=== PATIENT | male | born 1945 | race Caucasian/White ===

== ENCOUNTER 2021-06-30 04:06 | Inpatient (IN) ==
[2021-06-30 04:57] LABS: Basophils # (auto) 0.03 K/uL (0-0.2); Basophils % (auto) 0.3 %; Eosinophils # (auto) 0.16 K/uL (0-0.5); Eosinophils % (auto) 1.6 %; Hematocrit (blood only) 40.1 % (42-52); Hemoglobin 12.7 g/dL (14.0-18.0); Immature Granulocytes # (auto) 0.04 K/uL (0.00-0.02); Immature Granulocytes % (auto) 0.4 %; Lymphocytes # (auto) 1.38 K/uL (1.2-3.4); Lymphocytes % (auto) 14.1 %; Mean Corpuscular Hgb Conc 31.7 g/dL (32-36); Mean Corpuscular Volume 94.6 fL (80-100); Mean Platelet Volume 10.2 fL (7.4-10.4); Monocytes # (auto) 0.63 K/uL (0.11-0.59); Monocytes % (auto) 6.4 %; Neutrophils # (auto) 7.58 K/uL (1.4-6.5); Neutrophils % (auto) 77.2 %; Platelet Count 294 K/uL (130-400); RDW Coefficient of Variation 15.8 % (11.5-14.5); RDW Standard Deviation 54.9 fL (36.4-46.3); Red Blood Count 4.24 M/uL (4.7-6.1); White Blood Count 9.82 K/uL (4.8-10.8)
[2021-06-30 05:08] LABS: D Dimer 300 ug/L FEU (0-500)
[2021-06-30 05:25] LABS: Appearance Urine Cloudy (Clear); Bacteria Urine Automated 3+ (Negative); Bilirubin Urine Negative (Negative); Blood Urine 1+ (Negative); Color Urine Yellow; Epithelial Cell Urine Auto 0-5 /lpf (0-5); Glucose Urine UA Negative (Negative); Ketones Urine Negative (Negative); Leukocyte Esterase Urine 3+ (Negative); Nitrite Urine Positive (Negative); Protein Urine Trace (Negative); RBC Urine Automated 0-4 /hpf (0-4); Specific Gravity Urine 1.012 (1.000-1.030); Urobilinogen Urine Negative (Negative); WBC Urine Automated >30 /hpf (0-5)
[2021-06-30 05:26] LABS: Troponin I < 0.03 ng/ml (0-0.04)
[2021-06-30 05:38] LABS: Thyroid Stimulating Hormone 6.918 uIu/ml (0.300-4.500)
[2021-06-30 05:39] LABS: Alanine Aminotransferase 9 U/L (7-52); Albumin Globulin Ratio 0.9 (0.9-2); Albumin Level 3.6 gm/dl (3.4-5.0); Alkaline Phosphatase 56 U/L (34-104); Anion Gap 8 (3-11); Aspartate Aminotransferase 9 U/L (13-39); BUN Creatinine Ratio 15.2 (10-20); Bilirubin,Total 0.4 mg/dl (0.2-1.0); Blood Urea Nitrogen 34 mg/dl (6-23); Calcium 9.7 mg/dl (8.5-10.1); Carbon Dioxide 24 mmol/L (21-32); Chloride 103 mmol/L (98-107); Creatinine Clr Calc Pharmacy 40.3 ml/min; Est GFR (Non-African American) 27.6 ml/min; Globulin 3.9 gm/dl (2.5-4.0); Glucose 183 mg/dl (70-99(Fasting)); Potassium 4.1 mmol/L (3.5-5.1); Sodium 135 mmol/L (136-145); Total Protein 7.5 gm/dl (6.0-8.3)
--- NOTE | 2021-06-30 06:07 | Emergency Department Note ---
Impression & Plan Dyspnea, Hypothyroidism, Acute UTI, Heme positive stool Admit to the [facility] service ED Provider Note NAME: DOMITILA BAUM AGE: 75 SEX: M ARRIVES VIA: Ambulance INFORMANT: Patient ED PROVIDER(S): Katelynn Pacheco DO CHIEF COMPLAINT: Shortness of breath PLAN: Disposition: Admit to the [facility] service Condition: Fair MEDICAL DECISION MAKING: This is a 75-year-old male patient with hypertension, kidney disease and atrial fibrillation who presents to the emergency department with an episode of shortness of breath and palpitations which woke him from sleep. Chest x-ray was unremarkable and O2 saturations remained stable. D-dimer was negative. However, the patient was significantly weak with heme positive stools and evidence of UTI. The patient received 2 g of IV Rocephin and was noted to be significantly hypothyroid. [facility] for [facility] management. Triage Nursing notes reviewed and agree with them. Prior medical records reviewed occluding nephrology records from [facility] Vital Signs: reviewed and remarkable for hypertension Differential diagnosis: PE, CHF, pneumonia, A. fib with RVR, anemia ER treatment provided: IV Rocephin Diagnostics interpreted by me: ECG: Normal sinus rhythm at a rate of 65 with first-degree AV block there is no ST segment elevation or signs of ischemia Cardiac Monitoring: Normal sinus rhythm at 63 Laboratory studies: See below Imaging studies: As per my interpretation Chest x-ray: No acute pulmonary consolidation or opacity. There is some atelectasis at the left lung base. HPI: 75/M arrives for evaluation of dyspnea. The patient describes waking from sleep feeling short of breath with heart racing. Since that time, he has felt generalized weakness. He denies any chest pain. The patient normally wears 4 L of oxygen at bedtime. He has been doing this since 2009 when he was noted to be hypoxic with sleep. He is unsure whether or not he has sleep apnea. He describes a past medical history of hypertension and atrial fibrillation for which he takes Eliquis. ROS: See above HPI for pertinent positives & negatives. A total of 10 systems reviewed and were otherwise negative. PAST MEDICAL HISTORY:See Below PAST SURGICAL HISTORY:See Below FAMILY HISTORY:See Below SOCIAL HISTORY:See Below HOME MEDICATIONS:See list ALLERGIES:See list VITALS:See Below PHYSICAL EXAMINATION: HEENT: Head - normocephalic and atraumatic. Pupils are equal, round, and reactive to light. Extraocular eye muscles are intact, and sclera are anicteric. Nose - moist nasal mucosa without discharge. Mouth - moist buccal mucosa. Oropharynx is nonerythematous and there is no tonsillar exudate or edema noted. Neck: Supple; no cervical lymphadenopathy or JVD Heart: Regular rate and rhythm. There is a normal S1 and S2 with no murmurs, clicks, or gallops appreciated. Lungs: Clear to auscultation bilaterally with no wheezes, rales, or rhonchi. Abdomen: Soft, completely nontender, nondistended, with good bowel sounds. There are no palpable pulsatile masses or hepatosplenomegaly. There is no guarding, rigidity, or rebound noted. Extremities: No evidence of cyanosis, clubbing, or edema. There are easily palpable peripheral pulses. Skin: warm and dry with good turgor and no rashes. ED COURSE: Times/Reassessments: 0430: The patient was evaluated in room C6. A complete history and physical was performed. An IV lock was initiated and labs were drawn as above. An order was placed for continuous cardiac monitoring. The patient was in a normal sinus rhythm at a rate of 63. Chest x-ray was performed. Urine specimen was obtained and appears to be acutely infected. The patient was treated with 2 g of IV Rocephin. A twelve-lead EKG was obtained. The patient's stool was heme tested and found to be positive. Patient remains significantly weak. 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: No Current Living Situation: Alone Feels Safe at Home: Yes Safety Concerns: Feels Safe At This Time Assistive Devices: Cane Allergies Allergies Allergy/AdvReac Type Severity Reaction Status Date / Time No Known Allergies Allergy Verified 06/30/21 09:31 Home Meds Home Medications Medication Instructions Recorded Confirmed apixaban 5 mg tablet 5 mg PO BID 04/25/21 06/30/21 cholecalciferol (vitamin D3) 25 25 mcg PO QAM 04/25/21 06/30/21 mcg (1,000 unit) capsule folic acid 1 mg tablet 1 mg PO QAM 04/25/21 06/30/21 levothyroxine 88 mcg capsule 88 mcg PO DAILYBB 04/25/21 06/30/21 metoprolol succinate 25 mg 12.5 mg PO BID tab 05/05/21 06/30/21 tablet,extended release 24 hr ferrous sulfate 325 mg (65 mg 325 mg PO QAM 06/30/21 06/30/21 iron) tablet (FeroSul) gabapentin 100 mg capsule 100 mg PO QID 06/30/21 06/30/21 lisinopril 20 mg tablet 20 mg PO QAM 06/30/21 06/30/21 trazodone 50 mg tablet 50 mg PO DAILY 06/30/21 06/30/21 Results & Data (ED) Vital Signs Vital Signs - 24 hr 06/30/21 04:13 06/30/21 04:19 06/30/21 04:30 Temperature 36.6 C Temperature Source Oral Pulse Rate 67 65 Pulse Rate [Apical] Respiratory Rate 24 19 Respiratory Effort / Characteristics Short of Breath SOB on Exertion Respiratory Depth Blood Pressure 221/93 H Blood Pressure [Right Arm] Blood Pressure Mean 135 Blood Pressure Mean [Right Arm] Pulse Oximetry 97 97 97 Oxygen Delivery Method Room Air Room Air Room Air Sepsis Recent Fever Within 48 Hours No Sepsis New/Unexplained Change in Mental Status No Sepsis Action Taken by Nursing No Action Required 06/30/21 05:15 06/30/21 05:20 06/30/21 06:00 Temperature Temperature Source Pulse Rate Pulse Rate [Apical] 63 63 Respiratory Rate 16 20 Respiratory Effort / Characteristics Respiratory Depth Blood Pressure Blood Pressure [Right Arm] 213/90 H 205/99 H Blood Pressure Mean Blood Pressure Mean [Right Arm] 131 134 Pulse Oximetry 94 96 Oxygen Delivery Method Room Air Room Air Room Air Sepsis Recent Fever Within 48 Hours Sepsis New/Unexplained Change in Mental Status Sepsis Action Taken by Nursing 06/30/21 07:30 Temperature Temperature Source Pulse Rate Pulse Rate [Apical] 69 Respiratory Rate 22 Respiratory Effort / Characteristics Non-Labored Spontaneous Respiratory Depth Normal Blood Pressure Blood Pressure [Right Arm] 156/114 H Blood Pressure Mean Blood Pressure Mean [Right Arm] 128 Pulse Oximetry 97 Oxygen Delivery Method Room Air Sepsis Recent Fever Within 48 Hours Sepsis New/Unexplained Change in Mental Status Sepsis Action Taken by Nursing Laboratory Data Result diagrams: 06/30/21 04:35 06/30/21 04:35 Lab Results 06/30/21 06/30/21 06/30/21 Range/Units 04:30 04:35 04:35 WBC 9.82 (4.8-10.8) K/uL RBC 4.24 L (4.7-6.1) M/uL Hgb 12.7 L (14.0-18.0) g/dL Hct 40.1 L (42-52) % MCV 94.6 (80-100) fL MCH 30.0 (25-34) pg MCHC 31.7 L (32-36) g/dL RDW Std Deviation 54.9 H (36.4-46.3) fL RDW Coeff of Yolanda 15.8 H (11.5-14.5) % Plt Count 294 (130-400) K/uL MPV 10.2 (7.4-10.4) fL Immature Gran % (Auto) 0.4 % Neut % (Auto) 77.2 % Lymph % (Auto) 14.1 % [place] % (Auto) 6.4 % Eos % (Auto) 1.6 % Baso % (Auto) 0.3 % Neut # (Auto) 7.58 H (1.4-6.5) K/uL Lymph # (Auto) 1.38 (1.2-3.4) K/uL [place] # (Auto) 0.63 H (0.11-0.59) K/uL Eos # (Auto) 0.16 (0-0.5) K/uL Baso # (Auto) 0.03 (0-0.2) K/uL Immature Gran # (Auto) 0.04 H (0.00-0.02) K/uL D-Dimer 300 (0-500) ug/L FEU Sodium (136-145) mmol/L Potassium (3.5-5.1) mmol/L Chloride (98-107) mmol/L Carbon Dioxide (21-32) mmol/L Anion Gap (3-11) BUN (6-23) mg/dl Creatinine (0.6-1.4) mg/dl Est Cr Clr Drug Dosing ml/min Est GFR ( Amer) ml/min Est GFR (Non-Af Amer) ml/min BUN/Creatinine Ratio (10-20) Glucose (70-99(Fasting)) mg/dl Calcium (8.5-10.1) mg/dl Total Bilirubin (0.2-1.0) mg/dl AST (13-39) U/L ALT (7-52) U/L Alkaline Phosphatase (34-104) U/L Troponin I (0-0.04) ng/ml Total Protein (6.0-8.3) gm/dl Albumin (3.4-5.0) gm/dl Globulin (2.5-4.0) gm/dl Albumin/Globulin Ratio (0.9-2) TSH (0.300-4.500) uIu/ml Free T4 (0.61-1.60) ng/dl Urine Color Yellow Urine Appearance Cloudy A (Clear) Urine pH 6.0 (4.5-7.5) Ur Specific Grace 1.012 (1.000-1.030) Urine Protein Trace H (Negative) Urine Glucose (UA) Negative (Negative) Urine Ketones Negative (Negative) Urine Blood 1+ H (Negative) Urine Nitrite Positive A (Negative) Urine Bilirubin Negative (Negative) Urine Urobilinogen Negative (Negative) Ur Leukocyte Esterase 3+ H (Negative) Urine WBC (Auto) >30 H (0-5) /hpf Urine RBC (Auto) 0-4 (0-4) /hpf U Hyaline Cast (Auto) 1-5 (0-5) /lpf U Epithel Cells (Auto) 0-5 (0-5) /lpf Urine Bacteria (Auto) 3+ H (Negative) 06/30/21 06/30/21 Range/Units 04:35 04:35 WBC (4.8-10.8) K/uL RBC (4.7-6.1) M/uL Hgb (14.0-18.0) g/dL Hct (42-52) % MCV (80-100) fL MCH (25-34) pg MCHC (32-36) g/dL RDW Std Deviation (36.4-46.3) fL RDW Coeff of Yolanda (11.5-14.5) % Plt Count (130-400) K/uL MPV (7.4-10.4) fL Immature Gran % (Auto) % Neut % (Auto) % Lymph % (Auto) % [place] % (Auto) % Eos % (Auto) % Baso % (Auto) % Neut # (Auto) (1.4-6.5) K/uL Lymph # (Auto) (1.2-3.4) K/uL [place] # (Auto) (0.11-0.59) K/uL Eos # (Auto) (0-0.5) K/uL Baso # (Auto) (0-0.2) K/uL Immature Gran # (Auto) (0.00-0.02) K/uL D-Dimer (0-500) ug/L FEU Sodium 135 L (136-145) mmol/L Potassium 4.1 (3.5-5.1) mmol/L Chloride 103 (98-107) mmol/L Carbon Dioxide 24 (21-32) mmol/L Anion Gap 8 (3-11) BUN 34 H (6-23) mg/dl Creatinine 2.24 H (0.6-1.4) mg/dl Est Cr Clr Drug Dosing 40.3 ml/min Est GFR ( Amer) 32.0 ml/min Est GFR (Non-Af Amer) 27.6 ml/min BUN/Creatinine Ratio 15.2 (10-20) Glucose 183 H (70-99(Fasting)) mg/dl Calcium 9.7 (8.5-10.1) mg/dl Total Bilirubin 0.4 (0.2-1.0) mg/dl AST 9 L (13-39) U/L ALT 9 (7-52) U/L Alkaline Phosphatase 56 (34-104) U/L Troponin I < 0.03 (0-0.04) ng/ml Total Protein 7.5 (6.0-8.3) gm/dl Albumin 3.6 (3.4-5.0) gm/dl Globulin 3.9 (2.5-4.0) gm/dl Albumin/Globulin Ratio 0.9 (0.9-2) TSH 6.918 H (0.300-4.500) uIu/ml Free T4 0.74 (0.61-1.60) ng/dl Urine Color Urine Appearance (Clear) Urine pH (4.5-7.5) Ur Specific [place] (1.000-1.030) Urine Protein (Negative) Urine Glucose (UA) (Negative) Urine Ketones (Negative) Urine Blood (Negative) Urine Nitrite (Negative) Urine Bilirubin (Negative) Urine Urobilinogen (Negative) Ur Leukocyte Esterase (Negative) Urine WBC (Auto) (0-5) /hpf Urine RBC (Auto) (0-4) /hpf U Hyaline Cast (Auto) (0-5) /lpf U Epithel Cells (Auto) (0-5) /lpf Urine Bacteria (Auto) (Negative) Administered Medications Apixaban (Apixaban 5 Mg Tablet) 5 mg PO BID LEE Stop: 07/30/21 20:59 Last Admin: 06/30/21 21:37 Dose: 5 mg Documented by: [id number] Metoprolol Succinate (Metoprolol Succ 25mg Ext Rel Tab) 12.5 mg PO BID LEE Stop: 07/30/21 20:59 Last Admin: 06/30/21 20:49 Dose: 12.5 mg Documented by: [id number] Nitroglycerin (Nitroglycerin 2% Ointment 30gm Tube) 1 inch EXT Q6H LEE Stop: 07/30/21 11:35 Last Admin: 06/30/21 22:39 Dose: 1 inch Documented by: [id number] Admin: 06/30/21 17:47 Dose: 1 inch Documented by: [id number] Admin: 06/30/21 12:59 Dose: Not Given Documented by: [id number] Discontinued Medications Aspirin (Aspirin 81 Mg Chew) 324 mg PO NOW STA Stop: 06/30/21 09:30 Last Admin: 06/30/21 10:29 Dose: 324 mg Documented by: [id number] Furosemide (Furosemide Inj 20 Mg/2 Ml Vial) 20 mg IV ONE ONE Stop: 06/30/21 17:04 Last Admin: 06/30/21 17:47 Dose: 20 mg Documented by: [id number] Sodium Chloride (Nss) 500 mls @ 999 mls/hr IV .Q31M ONE Stop: 06/30/21 07:00 Last Infusion: 06/30/21 07:15 Dose: 0 mls/hr Documented by: [id number] Admin: 06/30/21 06:42 Dose: 999 mls/hr Documented by: [id number] Ceftriaxone Sodium (Rocephin) 2,000 mg in 70 mls @ 140 mls/hr IV NOW STA Stop: 06/30/21 06:59 Last Infusion: 06/30/21 07:11 Dose: 0 mls/hr Documented by: [id number] Admin: 06/30/21 06:41 Dose: 140 mls/hr Documented by: [id number] Nitroglycerin (Nitroglycerin 2% Ointment 30gm Tube) 1 inch EXT NOW STA Stop: 06/30/21 09:21 Last Admin: 06/30/21 10:29 Dose: 1 inch Documented by: [id number] Discharge Plan Visit Data Chief Complaint: Shortness of Breath/Dyspnea Stated Complaint: WEAKNESS,SHORT OF BREATH, HEADACHE ED Provider: Katelynn Pacheco Discharge Problem: Dyspnea, Hypothyroidism, Acute UTI, Heme positive stool Patient Disposition: Admitted As Inpatient Discharge Instructions Interventions: ED Discharge Assessment Last Done: 06/30/21 10:47 Discharge Problem: Dyspnea Qualifiers: Dyspnea type: shortness of breath Qualified Code(s): R06.02 - Shortness of breath Hypothyroidism Qualifiers: Hypothyroidism type: unspecified Qualified Code(s): E03.9 - Hypothyroidism, unspecified
[2021-06-30 06:19] LABS: T4 Free Thyroxine 0.74 ng/dl (0.61-1.60)
[2021-06-30] MEDS ORDERED: SODIUM CHLORIDE 0.9% 500 ML IV ONE (06:30)
[2021-06-30] MEDS ORDERED: cefTRIAXone SODIUM 2,000 MG/70 ML BAG IV STA (06:30)
--- NOTE | 2021-06-30 08:02 | History & Physical Report ---
Date of Service June 30, 2021 Assessment & Plan (1) Dyspnea: Plan: Sudden onset this morning, now resolved of unclear etiology. Concerning for possible ACS and will trend troponins - ASA 324mg PO now pending further workup, TTE Possible atrial fibrillation given known history of this and palpitations - monitor on telemetry for recurrence (2) Hypertensive urgency: Plan: Not taking lisinopril as he felt he was on too many medications. Will hold off restarting this as unclear what his baseline renal function is. Continue metoprolol succinate 12.5mg PO BID Start nitro paste 1 inch in case of ACS as above. Hydralazine 10mg IV q4h PRN for sBP > 180 One dose of Lasix 20mg IV now as appears mildly hypervolemic and will monitor Cr tomorrow for further doses. (3) Asymptomatic bacteriuria: Plan: No symptoms of this. Discontinue antibiotics. (4) Hypothyroidism: Plan: TSH 6.918, free T4 0.74, will defer increasing levothyroxine in acute setting as unlikely cause of this shortness of breath this morning Continue levothyroxine 88 mcg PO daily (5) Paroxysmal atrial fibrillation: Plan: Currently in NSR. Monitor on telemetry Anticoagulation with Eliquis 5mg PO BID (6) Hyperlipidemia: Plan: On no statin (7) Anemia due to chronic kidney disease: Plan: Mild. Monitor with CBC in AM. Follow up with nephrology as outpatient. (8) Stage 3b chronic kidney disease: Plan: Unclear baseline. Monitor with Lasix in AM. Plan: VTE Prophylaxis - Eliquis Diet - heart healthy Disposition - observation status to med/tele History of Present Illness Chief Complaint: Shortness of breath Primary Care Provider: AMAN Zhu Rafael Santos is a 75 year old male who presents to the ER with shortness of breath. He reports waking up feeling sudden onset shortness of breath this morning from sleeping. Associated palpitations. No chest pain. Shortness of breath resolved in the ER. He also describes a pressure on his abdomen which was making it hard for him to breath. No known history of CHF or kidney stones. He isn't taking his lisinopril as he was concerned about being on too many medications for his blood pressure as previously he had some orthostasis. He reports doing better on increased dose of metoprolol (25mg PO BID) and is unsure why it was ever reduced to it's current dose. In the ER UA was noted to be grossly positive for infection however he denies an y urinary symptoms such as back pain, suprapubic pain, urinary frequency, smell, change in color. He has chronic nocturia 2-3 times a night which has not changed. He was given one dose of ceftriaxone in the ER. CXR showed mild congestive change. EKG showed normal sinus rhythm. BP 221/93. He was referred to medicine for admission and ongoing management of weakness, BRETT (although unclear baseline) and UTI. Allergies Allergy/AdvReac Type Severity Reaction Status Date / Time No Known Allergies Allergy Verified 06/30/21 09:31 Home Medications Medication Instructions Recorded Confirmed Type apixaban 5 mg tablet 5 mg PO BID 04/25/21 06/30/21 History cholecalciferol (vitamin D3) 25 25 mcg PO QAM 04/25/21 06/30/21 History mcg (1,000 unit) capsule folic acid 1 mg tablet 1 mg PO QAM 04/25/21 06/30/21 History levothyroxine 88 mcg capsule 88 mcg PO DAILYBB 04/25/21 06/30/21 History metoprolol succinate 25 mg 12.5 mg PO BID tab 05/05/21 06/30/21 History tablet,extended release 24 hr ferrous sulfate 325 mg (65 mg 325 mg PO QAM 06/30/21 06/30/21 History iron) tablet (FeroSul) gabapentin 100 mg capsule 100 mg PO QID 06/30/21 06/30/21 History lisinopril 20 mg tablet 20 mg PO QAM 06/30/21 06/30/21 History trazodone 50 mg tablet 50 mg PO DAILY 06/30/21 06/30/21 History Past Med/Surg History Medical History (Updated 07/01/21 @ 07:44 by Toño Saunders MD) Age-related nuclear cataract, right eye 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 Vitamin D deficiency Social History Smoking Status: Never smoker Hx Alcohol Use: No Hx Substance Use: No Preferred Language: Albanian Loan Workout 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 Required: No Current Living Situation: Alone Feels Safe at Home: Yes Safety Concerns: Feels Safe At This Time Assistive Devices: Cane Review of Systems Review of Systems: All systems reviewed & are unremarkable except as noted in HPI & below Physical Exam Constitutional: WD/WN, vitals as above + morbidly obese; no acute distress Eyes: + anicteric sclerae; normal pupil size ENMT: external ear and nose normal, oropharynx normal Neck: trachea midline, no thyromegaly Respiratory: normal respiratory effort, lungs clear to auscultation Cardiovascular: Rate/Rhythm: regular rate and regular rhythm Heart Sounds: no murmur Vessels: no JVD (difficult to assess given neck size) Extremities: normal capillary refill and + pedal edema (1+ equal b/l LE with chronic venous stasis skin changes); no calf tenderness Gastrointestinal (Abdomen): normal bowel sounds, soft, nontender, no hepatosplenomegaly Musculoskeletal: no cyanosis or clubbing, extremities motor strength 5/5 Skin: no rashes, warm and dry (chronic venous stasis changes b/l LE) Neurologic: moves all extremities and awake; no focal motor deficits (no lateralizing weakness) and not confused Psychiatric: A+Ox3, euthymic affect Genitourinary: no CVA tenderness Results & Data Results & Data ([facility]) Vital Signs (Past 12 Hours) Vital Signs Temp Pulse Pulse Resp BP BP Pulse Ox 06/30/21 07:30 69 22 156/114 H 97 06/30/21 06:00 63 20 205/99 H 96 06/30/21 05:20 94 06/30/21 05:15 63 16 213/90 H 06/30/21 04:30 65 19 97 06/30/21 04:19 97 06/30/21 04:13 36.6 C 67 24 221/93 H 97 Laboratory Results Abnormal lab results 06/30/21 06/30/21 06/30/21 Range/Units 04:30 04:35 04:35 RBC 4.24 L (4.7-6.1) M/uL Hgb 12.7 L (14.0-18.0) g/dL Hct 40.1 L (42-52) % MCHC 31.7 L (32-36) g/dL RDW Std Deviation 54.9 H (36.4-46.3) fL RDW Coeff of Yolanda 15.8 H (11.5-14.5) % Neut # (Auto) 7.58 H (1.4-6.5) K/uL [place] # (Auto) 0.63 H (0.11-0.59) K/uL Immature Gran # (Auto) 0.04 H (0.00-0.02) K/uL Sodium 135 L (136-145) mmol/L BUN 34 H (6-23) mg/dl Creatinine 2.24 H (0.6-1.4) mg/dl Glucose 183 H (70-99(Fasting)) mg/dl AST 9 L (13-39) U/L TSH (0.300-4.500) uIu/ml Urine Appearance Cloudy A (Clear) Urine Protein Trace H (Negative) Urine Blood 1+ H (Negative) Urine Nitrite Positive A (Negative) Ur Leukocyte Esterase 3+ H (Negative) Urine WBC (Auto) >30 H (0-5) /hpf Urine Bacteria (Auto) 3+ H (Negative) 06/30/21 Range/Units 04:35 RBC (4.7-6.1) M/uL Hgb (14.0-18.0) g/dL Hct (42-52) % MCHC (32-36) g/dL RDW Std Deviation (36.4-46.3) fL RDW Coeff of Yolanda (11.5-14.5) % Neut # (Auto) (1.4-6.5) K/uL [place] # (Auto) (0.11-0.59) K/uL Immature Gran # (Auto) (0.00-0.02) K/uL Sodium (136-145) mmol/L BUN (6-23) mg/dl Creatinine (0.6-1.4) mg/dl Glucose (70-99(Fasting)) mg/dl AST (13-39) U/L TSH 6.918 H (0.300-4.500) uIu/ml Urine Appearance (Clear) Urine Protein (Negative) Urine Blood (Negative) Urine Nitrite (Negative) Ur Leukocyte Esterase (Negative) Urine WBC (Auto) (0-5) /hpf Urine Bacteria (Auto) (Negative) Diagnostic Findings XR chest 1V portable HISTORY: Dyspnea COMPARISON: None. FINDINGS: No pneumothorax. No pleural effusions. The cardiac silhouette is enlarged. There are calcifications within the aortic knob. Low lung volumes. Linear densities within left midlung zone are noted. Mild central pulmonary vascular congestion without overt edema. IMPRESSION: 1. Nonspecific linear densities within the left midlung zone. This could represent scarring or atelectasis. A pneumonia is considered less likely but not entirely excluded. 2. Cardiomegaly with mild congestive change. Medications Administered ER Medications Given: NSS 500 ml bolus Ceftriaxone 2g IV Code Status & VTE Plan Code Status Full per patient wishes VTE Prophylaxis Plan VTE Prophylaxis will be ordered: Yes PG Care Time/CCT Total # of Minutes Spent Total Time Spent with Patient: Total time spent is greater than 50% in coordination of care (as documented) at patient's floor/unit and/or counseling patient: Coding Level of Care Code INT OBSERVATION CARE 70M LVL 3 Diagnoses Dyspnea R06.00 Hypertensive urgency I16.0 Hypothyroidism E03.9 Paroxysmal atrial fibrillation I48.0 Hyperlipidemia E78.5 Anemia due to chronic kidney disease N18.9; D63.1 Stage 3b chronic kidney disease N18.32 Asymptomatic bacteriuria R82.71
--- NOTE | 2021-06-30 08:22 | XRay Report ---
XR chest 1V portable HISTORY: Dyspnea COMPARISON: None. FINDINGS: No pneumothorax. No pleural effusions. The cardiac silhouette is enlarged. There are calcif ications within the aortic knob. Low lung volumes. Linear densities within left midlung zone are note d. Mild central pulmonary vascular congestion without overt edema. IMPRESSION: 1. Nonspecific linear densities within the left midlung zone. This could represent scarring or atelec tasis. A pneumonia is considered less likely but not entirely excluded. 2. Cardiomegaly with mild congestive change. ACT 112: Negative or not required by law. Electronically signed by: Davy Brooke M.D. 06/30/2021 8:21 AM
--- NOTE | 2021-06-30 08:49 | Electrocardiogram Report ---
Test Reason : Blood Pressure : / mmHG Vent. Rate : 065 BPM Atrial Rate : 065 BPM P-R Int : 238 ms QRS Dur : 106 ms QT Int : 394 ms P-R-T Axes : 060 -23 090 degrees QTc Int : 409 ms Sinus rhythm with 1st degree A-V block Nonspecific T wave abnormality Abnormal ECG No previous ECGs available Confirmed by Onofre Christiansen ([id number]) on 06/30/2021 8:49:25 AM Referred By: REFERRED SELF Confirmed By:Kamaljit Christiansen
[2021-06-30] MEDS ORDERED: NITROGLYCERIN 2% OINTMENT 30GM TUBE EXT STA (09:20)
[2021-06-30] MEDS ORDERED: ASPIRIN 81 MG CHEW PO STA (09:29)
--- NOTE | 2021-06-30 10:33 | XCELERA ---
[id number]
[2021-06-30] MEDS ORDERED: hydrALAZINE HCL 20 MG/ML VIAL IV PRN ×2 (11:36→13:55)
[2021-06-30] MEDS: NITROGLYCERIN 2% OINTMENT 30GM TUBE EXT SCH ×3 (12:59→22:39)
[2021-06-30] MEDS ORDERED: GABAPENTIN 100 MG CAP PO PRN (13:47)
[2021-06-30] MEDS ORDERED: traZODone HCL 50 MG TAB PO PRN (13:57)
[2021-06-30] MEDS ORDERED: lisinopril 20 MG TAB PO SCH (14:00)
[2021-06-30] MEDS ORDERED: FUROSEMIDE INJ 20 MG/2 ML VIAL IV ONE (17:03)
[2021-06-30] MEDS: METOPROLOL SUCC 25MG EXT REL TAB PO SCH (20:49)
[2021-06-30] MEDS: APIXABAN 5 MG TABLET PO SCH (21:37)
[2021-07-01] MEDS: LEVOTHYROXINE SODIUM 88 MCG TABLET PO SCH (05:33)
[2021-07-01] MEDS: NITROGLYCERIN 2% OINTMENT 30GM TUBE EXT SCH ×4 (05:33→23:46)
[2021-07-01 06:24] LABS: Basophils # (auto) 0.03 K/uL (0-0.2); Basophils % (auto) 0.2 %; Eosinophils # (auto) 0.15 K/uL (0-0.5); Eosinophils % (auto) 1.2 %; Hematocrit (blood only) 38.4 % (42-52); Hemoglobin 11.9 g/dL (14.0-18.0); Immature Granulocytes # (auto) 0.06 K/uL (0.00-0.02); Immature Granulocytes % (auto) 0.5 %; Lymphocytes # (auto) 0.87 K/uL (1.2-3.4); Lymphocytes % (auto) 7.2 %; Mean Corpuscular Hemoglobin 29.5 pg (25-34); Mean Platelet Volume 10.4 fL (7.4-10.4); Monocytes # (auto) 0.87 K/uL (0.11-0.59); Monocytes % (auto) 7.2 %; Neutrophils # (auto) 10.06 K/uL (1.4-6.5); Neutrophils % (auto) 83.7 %; Platelet Count 289 K/uL (130-400); RDW Standard Deviation 56.3 fL (36.4-46.3); Red Blood Count 4.04 M/uL (4.7-6.1); White Blood Count 12.04 K/uL (4.8-10.8)
[2021-07-01 06:45] LABS: BUN Creatinine Ratio 14.3 (10-20); Calcium 8.9 mg/dl (8.5-10.1); Creatinine Clr Calc Pharmacy 36.3 ml/min; Est GFR (African American) 27.9 ml/min; Est GFR (Non-African American) 24.1 ml/min; Potassium 4.2 mmol/L (3.5-5.1)
[2021-07-01] MEDS: METOPROLOL SUCC 25MG EXT REL TAB PO SCH ×2 (08:00→20:31)
[2021-07-01] MEDS: FERROUS SULFATE 325 MG TAB PO SCH (10:06)
[2021-07-01] MEDS: FOLIC ACID 1 MG TAB PO SCH (10:06)
[2021-07-01] MEDS: APIXABAN 5 MG TABLET PO SCH ×2 (10:06→20:31)
[2021-07-01] MEDS: CHOLECALCIFEROL 1,000 UNITS 25 MCG TAB PO SCH (11:15)
--- NOTE | 2021-07-01 20:02 | Hospitalist Progress Note ---
Date of Service July 01, 2021 Assessment & Plan (1) Dyspnea: Plan: Sudden onset this morning, now resolved of unclear etiology. Concerning for possible ACS and will trend troponins - ASA 324mg PO now pending further workup, TTE Possible atrial fibrillation given known history of this and palpitations - monitor on telemetry for recurrence. WBC worsene, creatinine increased, will recheck in AM. If improving, will discharge. (2) Hypertensive urgency: Plan: Not taking lisinopril as he felt he was on too many medications. Will hold off restarting this as unclear what his baseline renal function is. Continue metoprolol succinate 12.5mg PO BID Start nitro paste 1 inch in case of ACS as above. Hydralazine 10mg IV q4h PRN for sBP > 180 One dose of Lasix 20mg IV now as appears mildly hypervolemic creatinine increased on 07/01 (3) Asymptomatic bacteriuria: Plan: No symptoms of this. Discontinue antibiotics. (4) Hypothyroidism: Plan: TSH 6.918, free T4 0.74, will defer increasing levothyroxine in acute setting as unlikely cause of this shortness of breath this morning Continue levothyroxine 88 mcg PO daily (5) Paroxysmal atrial fibrillation: Plan: Currently in NSR. Monitor on telemetry Anticoagulation with Eliquis 5mg PO BID (6) Hyperlipidemia: Plan: On no statin (7) Anemia due to chronic kidney disease: Plan: Mild. Monitor with CBC in AM. Follow up with nephrology as outpatient. (8) Stage 3b chronic kidney disease: Plan: Unclear baseline. Monitor with Lasix in AM. Plan: VTE Prophylaxis - Eliquis Diet - heart healthy Disposition - observation status to med/tele Admission and Anticipated Discharge Date Admission Date: July 01, 2021 Subjective Patient reports feeling better. Review of Systems Review of Systems: All systems reviewed & are unremarkable except as noted in HPI & below Physical Exam Constitutional: WD/WN, vitals as above + morbidly obese; no acute distress Eyes: + anicteric sclerae; normal pupil size ENMT: external ear and nose normal, oropharynx normal Neck: trachea midline, no thyromegaly Respiratory: normal respiratory effort, lungs clear to auscultation Cardiovascular: Rate/Rhythm: regular rate and regular rhythm Heart Sounds: no murmur Vessels: no JVD (difficult to assess given neck size) Extremities: normal capillary refill and + pedal edema (1+ equal b/l LE with chronic venous stasis skin changes); no calf tenderness Gastrointestinal (Abdomen): normal bowel sounds, soft, nontender, no hepatosplenomegaly Musculoskeletal: no cyanosis or clubbing, extremities motor strength 5/5 Skin: no rashes, warm and dry (chronic venous stasis changes b/l LE) Neurologic: moves all extremities and awake; no focal motor deficits (no lateralizing weakness) and not confused Psychiatric: A+Ox3, euthymic affect Genitourinary: no CVA tenderness Results & Data Results & Data ([facility]) Vital Signs (Past 12 Hours) Vital Signs Temp Pulse Pulse Resp BP BP Pulse Ox 07/01/21 19:36 36.4 C L 72 20 158/68 H 100 07/01/21 15:16 36.5 C 66 18 159/81 H 93 07/01/21 15:00 69 07/01/21 11:14 36.5 C 69 18 177/80 H 92 PG Care Time/CCT Total # of Minutes Spent Total Time Spent with Patient: Total time spent is greater than 50% in coordination of care (as documented) at patient's floor/unit and/or counseling patient: Coding Level of Care Code 52212 Subseq Hosp Care Lvl 2 Diagnoses Dyspnea R06.02 Dyspnea type: shortness of breath Hypertensive urgency I16.0 Asymptomatic bacteriuria R82.71 Hypothyroidism E03.9 Paroxysmal atrial fibrillation I48.0 Hyperlipidemia E78.5 Anemia due to chronic kidney disease N18.9; D63.1 Stage 3b chronic kidney disease N18.32 (1) Dyspnea Dyspnea type: shortness of breath Qualified Code(s): R06.02 - Shortness of breath
[2021-07-02] MEDS: LEVOTHYROXINE SODIUM 88 MCG TABLET PO SCH (05:50)
[2021-07-02] MEDS: NITROGLYCERIN 2% OINTMENT 30GM TUBE EXT SCH ×2 (05:54→13:08)
[2021-07-02 08:01] LABS: Hematocrit (blood only) 38.2 % (42-52); Hemoglobin 11.9 g/dL (14.0-18.0); Mean Corpuscular Hemoglobin 29.7 pg (25-34); Mean Corpuscular Hgb Conc 31.2 g/dL (32-36); Mean Corpuscular Volume 95.3 fL (80-100); Mean Platelet Volume 9.8 fL (7.4-10.4); Platelet Count 269 K/uL (130-400); RDW Coefficient of Variation 16.1 % (11.5-14.5); RDW Standard Deviation 56.5 fL (36.4-46.3); Red Blood Count 4.01 M/uL (4.7-6.1); White Blood Count 9.18 K/uL (4.8-10.8)
[2021-07-02 08:35] LABS: Albumin Globulin Ratio 0.9 (0.9-2); Albumin Level 3.5 gm/dl (3.4-5.0); Bilirubin,Total 0.5 mg/dl (0.2-1.0); Calcium 9.1 mg/dl (8.5-10.1); Est GFR (African American) 25.9 ml/min; Est GFR (Non-African American) 22.4 ml/min; Globulin 3.7 gm/dl (2.5-4.0); Potassium 4.6 mmol/L (3.5-5.1); Total Protein 7.2 gm/dl (6.0-8.3)
[2021-07-02] MEDS: FERROUS SULFATE 325 MG TAB PO SCH (09:26)
[2021-07-02] MEDS: APIXABAN 5 MG TABLET PO SCH (09:26)
[2021-07-02] MEDS: FOLIC ACID 1 MG TAB PO SCH (09:26)
[2021-07-02] MEDS: CHOLECALCIFEROL 1,000 UNITS 25 MCG TAB PO SCH (09:26)
[2021-07-02] MEDS: METOPROLOL SUCC 25MG EXT REL TAB PO SCH (09:26)
--- NOTE | 2021-07-05 06:33 | Discharge Summary ---
Date of Service July 02, 2021 Admission HPI Per Admitting Provider Rafael Santos is a 75 year old male who presents to the ER with shortness of breath. He reports waking up feeling sudden onset shortness of breath this morning from sleeping. Associated palpitations. No chest pain. Shortness of breath resolved in the ER. He also describes a pressure on his abdomen which was making it hard for him to breath. No known history of CHF or kidney stones. He isn't taking his lisinopril as he was concerned about being on too many medications for his blood pressure as previously he had some orthostasis. He reports doing better on increased dose of metoprolol (25mg PO BID) and is unsure why it was ever reduced to it's current dose. In the ER UA was noted to be grossly positive for infection however he denies any urinary symptoms such as back pain, suprapubic pain, urinary frequency, s geoff, change in color. He has chronic nocturia 2-3 times a night which has not changed. He was given one dose of ceftriaxone in the ER. CXR showed mild congestive change. EKG showed normal sinus rhythm. BP 221/93. He was referred to medicine for admission and ongoing management of weakness, BRETT (although unclear baseline) and UTI. Principal Diagnosis Dyspnea Discharge Exam Constitutional: WD/WN, vitals as above + morbidly obese; no acute distress Eyes: + anicteric sclerae; normal pupil size ENMT: external ear and nose normal, oropharynx normal Neck: trachea midline, no thyromegaly Respiratory: normal respiratory effort, lungs clear to auscultation Cardiovascular: Rate/Rhythm: regular rate and regular rhythm Heart Sounds: no murmur Vessels: no JVD (difficult to assess given neck size) Extremities: normal capillary refill and + pedal edema (1+ equal b/l LE with chronic venous s tasis skin changes); no calf tenderness Gastrointestinal (Abdomen): normal bowel sounds, soft, nontender, no hepatosplenomegaly Musculoskeletal: no cyanosis or clubbing, extremities motor strength 5/5 Skin: no rashes, warm and dry (chronic venous stasis changes b/l LE) Neurologic: moves all extremities and awake; no focal motor deficits (no lateralizing weakness) and not confused Psychiatric: A+Ox3, euthymic affect Genitourinary: no CVA tenderness Discharge Data Allergies Allergy/AdvReac Type Severity Reaction Status Date / Time No Known Allergies Allergy Verified 06/30/21 09:31 Consultations 06/30/21 07:27 ED Decision to Admit Stat Hospital Course (1) Dyspnea: Sudden onset this morning, now resolved of unclear etiology. Concerning for possible ACS and will trend troponins - ASA 324mg PO now pending further workup, TTE Possible atrial fibrillation given known history of this and palpitations - monitor on telemetry for recurrence. On day of discharge, patient is improving and feeling well. He is breathing better. Patient has oxygen at home. WBC improved. Creatinine did slightly worsen, but patient is agreeable to obtaining blood work on Wednesday. will hold lisinopril (2) Hypertensive urgency: Not taking lisinopril as he felt he was on too many medications. Will hold off restarting this as unclear what his baseline renal function is. Continue metoprolol succinate 12.5mg PO BID Start nitro paste 1 inch in case of ACS as above. Hydralazine 10mg IV q4h PRN for sBP > 180 One dose of Lasix 20mg IV now as appears mildly hypervolemic creatinine increased on 07/01 (3) Asymptomatic bacteriuria: Uncomplicated UTI Initially treated as asymptomatic bacteruria, however due to WBC elevated in blood will treat UTI. (4) Hypothyroidism: TSH 6.918, free T4 0.74, will defer increasing levothyroxine in acute setting as unlikely cause of this shortness of breath this morning Continue levothyroxine 88 mcg PO daily (5) Paroxysmal atrial fibrillation: Currently in NSR. Monitor on telemetry Anticoagulation with Eliquis 5mg PO BID (6) Hyperlipidemia: On no statin (7) Anemia due to chronic kidney disease: Mild. Monitor with CBC in AM. Follow up with nephrology as outpatient. (8) Stage 3b chronic kidney disease: Unclear baseline. Monitor with Lasix in AM. as above. VTE Prophylaxis - Eliquis Diet - heart healthy Disposition - observation status to med/tele Total Time Total Time Spent Total Time Spent (In Minutes): 32 Discharge Plan Discharge Items Patient Disposition: Home - Self-Care Reason For Visit: GENERALIZED WEAKNESS,UTI Discharge Diagnosis: Generalized weakness, Uti Activity: Resume your previous activity Non-emergency contact: Primary Care Provider Call non-emergency contact if: you have any medication questions Follow-up/Referrals: Mann Bright, [facility] [Primary Care Provider] - Diet: Heart Healthy Addtl Attending Provider Instructions: You have been hospitalized for an acute medical problem. During your stay at [facility], we have made an effort to correct the problem that brought you to the hospital while keeping you as comfortable as possible. Medications were used to bring your condition under control and your discharge instructions will include directions for any medications you should take after leaving the hospital. Please make sure you see your Primary Care Provider as part of your follow up plan. Recommend followup blood work in one week to recheck kidney function. We will treat your urinary tract infection for 5 days. recommend followup with PCP. Pending Studies at Discharge: No Stand-Alone Forms: My [facility], Smoking Cessation Medications and DC Order Prescriptions: New ciprofloxacin HCl 500 mg tablet 500 mg PO BID Qty: 10 RF: 0 Continued apixaban 5 mg tablet 5 mg PO BID RF: 0 cholecalciferol (vitamin D3) 25 mcg (1,000 unit) capsule 25 mcg PO QAM RF: 0 folic acid 1 mg tablet 1 mg PO QAM RF: 0 levothyroxine 88 mcg capsule 88 mcg PO DAILYBB RF: 0 metoprolol succinate 25 mg tablet extended release 24 hr 12.5 mg PO BID RF: 0 trazodone 50 mg tablet 50 mg PO DAILY RF: 0 ferrous sulfate [FeroSul] 325 mg (65 mg iron) tablet 325 mg PO QAM RF: 0 gabapentin 100 mg capsule 100 mg PO QID RF: 0 Discontinued lisinopril 20 mg tablet 20 mg PO QAM RF: 0 Discharge Orders: Discharge Order (Routine); Ordered 07/02/21 Ordered By: Lito Lopez Admission Data Admit Date/Time: 07/01/21 16:35 Attending Provider: Lito Lopez Admit Provider: Toño Saunders Primary Care Provider: Mann Bright Other Providers: Toño Saunders Other Interventions: Discharge Summary Assessment (RN) Last Done: 07/02/21 15:36 Coding Level of Care Code D/C DAY MANAGEMENT >30 MINS Diagnoses Dyspnea R06.02 Dyspnea type: shortness of breath Hypertensive urgency I16.0 Asymptomatic bacteriuria R82.71 Hypothyroidism E03.9 Paroxysmal atrial fibrillation I48.0 Hyperlipidemia E78.5 Anemia due to chronic kidney disease N18.9; D63.1 Stage 3b chronic kidney disease N18.32
== END 2021-07-02 15:57 | disposition home or self-care (01) | DRG 309 ==
LOC: 2N 04:06 → ED 04:06 → SUATTDRO 07:59 → 2N 10:47

== ENCOUNTER 2021-07-28 11:54 | Inpatient (IN) ==
[2021-07-28] MEDS ORDERED: SODIUM CHLORIDE 0.9% 1000ML 500 ML IV ONE (12:00)
[2021-07-28] MEDS ORDERED: CEFEPIME 2,000 MG/20 ML VIAL IV STA (12:00)
--- NOTE | 2021-07-28 12:21 | Emergency Department Note ---
Impression & Plan Weakness, Acute UTI, Failure of outpatient treatment, BRETT (acute kidney injury) ED Provider Note NAME: DOMITILA BAUM AGE: 75 SEX: M : 1945 ARRIVES VIA: Walk-In INFORMANT: [Patient] ED PROVIDER(S): [Adrian Davis MD] CHIEF COMPLAINT: Abnormal labs HISTORY OF PRESENT ILLNESS: The patient is a 75-year-old male who presents to the ED after being called back for positive urine culture results. The patient grew Pseudomonas which is resistant to all forms of oral antibiotics. The patient had been at our facility on the , 2 days ago. He was dizzy and a bit weak. The UTI was diagnosed. He was placed on Bactrim. The patient feels pretty similar to how he fell 2 days ago. He denies any flank or abdominal pain. No fever or chills. No cough or congestion or shortness of breath. He has had a previous UTI requiring hospitalization about 5 years ago. Of note, the patient has not noticed any urinary burning or increased frequency. REVIEW OF SYSTEMS: See HPI for pertinent positives and negatives. A total of ten systems were reviewed and were otherwise negative. PMHx/PSHx: See Below SOCIAL HISTORY: See Below. PHYSICAL EXAM: GENERAL: Patient is in no acute distress. HEENT: No acute trauma, normocephalic atraumatic, mucous membranes moist, no nasal congestion, no scleral icterus. NECK: No stridor, no adenopathy, no meningismus, trachea is midline. LUNGS: Clear to auscultation bilaterally, no wheeze, no rhonchi, breath sounds equal. HEART: Without murmurs gallops or rubs, regular rate and rhythm. ABDOMEN: Soft, nontender, bowel sounds positive, no hernias, no peritonitis. EXTREMITIES: No cyanosis, chronic bilateral pedal edema with some chronic skin change, full range of motion of all the joints without pain or difficulty, no signs for acute trauma. NEUROLOGIC: Oriented x 3, no acute motor or sensory deficits, no focal weakness. SKIN: No rash, no jaundice, no diaphoresis. Back: No flank discomfort to percussion. DIFFERENTIAL DIAGNOSIS: Urinary tract infection, prostatitis, pyelonephritis, hydronephrosis, renal stone, failed outpatient treatment, dehydration, renal failure, electrolyte imbalance, bacteremia, among others. EMERGENCY DEPARTMENT COURSE/PROCEDURES: MEDICAL DECISION MAKING: There is no leukocytosis. A mild anemia was noted with a hemoglobin of 12.9. This anemia is baseline for the patient. There was a normal platelet count. Creatinine was elevated somewhat above the patient's baseline. No significant electrolyte abnormality in need of emergent correction. COVID testing returned negative. Abdominal and pelvis CT showed some potential inflammation to the ureters, there was no urinary obstruction. Urine culture from a few days ago did grow out a resistant Pseudomonas. Only IV antibiotics were indicated. Patient presents with weakness. He has had previous UTIs. He appears to have a UTI now and maybe even an early pyelonephritis. IV antibiotic therapy, hospitalization are warranted. I spoke with the patient, I talked with the social work case manager. The on-call hospitalist was consulted. Of note, during the ED stay, the patient was given IV saline as well as IV cefepime. Past Med/Surg History Medical History Age-related nuclear cataract, right eye 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 Vitamin D deficiency Social History Smoking Status: Never smoker Hx Alcohol Use: No Hx Substance Use: No Preferred Language: Surinamese Communication Ability: Effective Alterations Expert Required: No Current Living Situation: Alone Feels Safe at Home: Yes Assistive Devices: Cane, Glasses, Oxygen - at Night and Walker Allergies Allergies Allergy/AdvReac Type Severity Reaction Status Date / Time ciprofloxacin [From Cipro] AdvReac Intermediate Upset Unverified 07/28/21 13:36 Stomach, Nausea, GI Discomfort Home Meds Home Medications Medication Instructions Recorded Confirmed apixaban 5 mg tablet 5 mg PO BID 04/25/21 07/28/21 cholecalciferol (vitamin D3) 25 25 mcg PO QAM 04/25/21 07/28/21 mcg (1,000 unit) capsule folic acid 1 mg tablet 1 mg PO QAM 04/25/21 07/28/21 levothyroxine 88 mcg capsule 88 mcg PO DAILYBB 04/25/21 07/28/21 metoprolol succinate 25 mg 12.5 mg PO BID tab 05/05/21 07/28/21 tablet,extended release 24 hr ferrous sulfate 325 mg (65 mg 325 mg PO QAM 06/30/21 07/28/21 iron) tablet (FeroSul) gabapentin 100 mg capsule 100 mg PO QID PRN 06/30/21 07/28/21 trazodone 50 mg tablet 50 mg PO HS PRN 06/30/21 07/28/21 lisinopril 5 mg tablet 5 mg PO DAILY 07/28/21 07/28/21 Previous Rx's Medication Instructions Recorded sulfamethoxazole 800 1 tab PO BID 10 Days #20 tab 07/26/21 mg-trimethoprim 160 mg tablet (Bactrim DS) Results & Data (ED) Vital Signs Vital Signs - 24 hr 07/28/21 11:58 07/28/21 12:30 07/28/21 13:32 Temperature 36.3 C L Temperature Source Oral Pulse Rate 66 64 64 Pulse Rhythm Regular Pulse Strength Normal Respiratory Rate 22 18 18 Respiratory Effort / Characteristics Non-Labored Spontaneous Respiratory Depth Normal Respiratory Pattern Regular Blood Pressure 190/73 H 158/104 H 187/91 H Blood Pressure Mean 112 122 123 Blood Pressure Position Sitting Pulse Oximetry 94 94 95 Oxygen Delivery Method Room Air Sepsis Recent Fever Within 48 Hours No Sepsis New/Unexplained Change in Mental Status No Sepsis Action Taken by Nursing No Action Required 07/28/21 14:00 Temperature Temperature Source Pulse Rate 62 Pulse Rhythm Pulse Strength Respiratory Rate 18 Respiratory Effort / Characteristics Respiratory Depth Respiratory Pattern Blood Pressure 172/69 H Blood Pressure Mean 103 Blood Pressure Position Pulse Oximetry 96 Oxygen Delivery Method Sepsis Recent Fever Within 48 Hours Sepsis New/Unexplained Change in Mental Status Sepsis Action Taken by Assisted Medications Current Medication List: was personally reviewed by me Laboratory Data Attestation: I reviewed the patient's lab results. Result diagrams: 07/28/21 12:22 07/28/21 12:22 Lab Results 07/28/21 07/28/21 07/28/21 Range/Units 12:22 12:22 12:31 WBC 8.84 (4.8-10.8) K/uL RBC 4.25 L (4.7-6.1) M/uL Hgb 12.9 L (14.0-18.0) g/dL Hct 41.3 L (42-52) % MCV 97.2 (80-100) fL MCH 30.4 (25-34) pg MCHC 31.2 L (32-36) g/dL RDW Std Deviation 56.9 H (36.4-46.3) fL RDW Coeff of Yolanda 15.9 H (11.5-14.5) % Plt Count 324 (130-400) K/uL MPV 10.3 (7.4-10.4) fL Immature Gran % (Auto) 0.3 % Neut % (Auto) 80.0 % Lymph % (Auto) 12.2 % [place] % (Auto) 5.7 % Eos % (Auto) 1.6 % Baso % (Auto) 0.2 % Neut # (Auto) 7.07 H (1.4-6.5) K/uL Lymph # (Auto) 1.08 L (1.2-3.4) K/uL [place] # (Auto) 0.50 (0.11-0.59) K/uL Eos # (Auto) 0.14 (0-0.5) K/uL Baso # (Auto) 0.02 (0-0.2) K/uL Immature Gran # (Auto) 0.03 H (0.00-0.02) K/uL Sodium 138 (136-145) mmol/L Potassium 4.4 (3.5-5.1) mmol/L Chloride 105 (98-107) mmol/L Carbon Dioxide 27 (21-32) mmol/L Anion Gap 6 (3-11) BUN 30 H (6-23) mg/dl Creatinine 2.68 H (0.6-1.4) mg/dl Est Cr Clr Drug Dosing 32.7 ml/min Est GFR ( Amer) 25.8 ml/min Est GFR (Non-Af Amer) 22.3 ml/min BUN/Creatinine Ratio 11.2 (10-20) Glucose 182 H (70-99(Fasting)) mg/dl Calcium 9.4 (8.5-10.1) mg/dl SARS-CoV-2, RNA, NAAT NEGATIVE (NEGATIVE) Administered Medications Discontinued Medications Sodium Chloride (Nss 1000ml) 500 mls @ 999 mls/hr IV .Q31M ONE Stop: 07/28/21 12:30 Last Infusion: 07/28/21 13:02 Dose: 0 mls/hr Documented by: [id number] Admin: 07/28/21 12:27 Dose: 999 mls/hr Documented by: [id number] Cefepime HCl (Maxipime) 2,000 mg in 20 mls @ 5 mls/min IV NOW STA; Protocol Stop: 07/28/21 12:03 Last Admin: 07/28/21 12:27 Dose: 5 mls/min Documented by: [id number] Imaging Data Radiologist's Impression: Abdomen/Pelvis CT 07/28/21 12:12 CT OF THE ABDOMEN AND PELVIS WITHOUT CONTRAST CLINICAL HISTORY: UTI. Possible obstruction. COMPARISON STUDY: No previous studies for comparison. TECHNIQUE: Axial images of the abdomen and pelvis were obtained without IV contrast. Images were reviewed in the axial, sagittal, and coronal planes. Automated exposure control was utilized for the study. A dose lowering technique was utilized adhering to the principles of ALARA. FINDINGS: Suspected right gynecomastia is partially imaged on this exam. There is a trace left pleural effusion with pleural thickening. An adjacent 5.3 x 3 cm subpleural left lower lobe opacity contains hyperdense foci. The appearance favors round atelectasis. No pneumatosis, free air or portal venous gas is present. Moderate bilateral renal atrophy is greater than left. Punctate bilateral renal calculi are present. There are no ureteral calculi. There is no hydronephrosis. There may be bilateral urothelial thickening within the collecting systems and proximal ureters. Bladder wall is thickened, irregular and trabeculated with suspected small bladder diverticula. Size of the prostate is normal. There are gallstones within the gallbladder. There may be minimal pericholecystic stranding. Unenhanced images of the liver, spleen, adrenal glands and pancreas are unremarkable. No biliary or pancreatic ductal dilatation is present. There is no evidence for a bowel obstruction. The appendix is not visualized. No abdominal or pelvic lymphadenopathy is present. There is no acute fracture or suspicious lesion within the visualized skeletal structures. Fat- containing left inguinal hernia is present. IMPRESSION: 1. Punctate bilateral renal calculi. No ureteral calculi or hydronephrosis. 2. Possible urothelial thickening of the bilateral collecting systems and proximal ureters which could be correlated with urinalysis. Thickened, irregular and trabeculated bladder wall. 3. Cholelithiasis. Possible minimal pericholecystic infiltration. If right upper quadrant pain, ultrasound is recommended for further evaluation. 4. No bowel obstruction. No bowel wall thickening on unenhanced exam. 5. Left pleural thickening with a trace left pleural effusion. Subpleural left lower lobe opacity favors round atelectasis. ACT 112: Negative or not required by law. Electronically signed by: Tyree Hall M.D. 07/28/2021 1:42 PM Discharge Plan Visit Data Chief Complaint: Abnormal Labs/Diagnostic Testing Stated Complaint: ABNORMAL LABS ED Provider: Adrian Davis Discharge Problem: Weakness, Acute UTI, Failure of outpatient treatment, BRETT (acute kidney injury) Patient Disposition: Admitted As Inpatient Condition: Good Forms Stand Alone Forms: [facility] Cloud Content Prescriptions Prescriptions: No Action apixaban 5 mg tablet 5 mg PO BID RF: 0 cholecalciferol (vitamin D3) 25 mcg (1,000 unit) capsule 25 mcg PO QAM RF: 0 folic acid 1 mg tablet 1 mg PO QAM RF: 0 levothyroxine 88 mcg capsule 88 mcg PO DAILYBB RF: 0 metoprolol succinate 25 mg tablet extended release 24 hr 12.5 mg PO BID RF: 0 sulfamethoxazole-trimethoprim [Bactrim DS] 800-160 mg tablet 1 tab PO BID 10 Days Qty: 20 RF: 0 trazodone 50 mg tablet 50 mg PO HS PRN (Reason: Sleep) RF: 0 ferrous sulfate [FeroSul] 325 mg (65 mg iron) tablet 325 mg PO QAM RF: 0 gabapentin 100 mg capsule 100 mg PO QID PRN (Reason: Nerve Pain) RF: 0 lisinopril 5 mg tablet 5 mg PO DAILY RF: 0 Referrals Referrals: Mann Bright, CLINICAL NEUROPSYCHOLOGIST-C [Primary Care Provider] -
[2021-07-28 12:49] LABS: Basophils # (auto) 0.02 K/uL (0-0.2); Basophils % (auto) 0.2 %; Eosinophils # (auto) 0.14 K/uL (0-0.5); Eosinophils % (auto) 1.6 %; Hematocrit (blood only) 41.3 % (42-52); Hemoglobin 12.9 g/dL (14.0-18.0); Immature Granulocytes # (auto) 0.03 K/uL (0.00-0.02); Immature Granulocytes % (auto) 0.3 %; Lymphocytes # (auto) 1.08 K/uL (1.2-3.4); Lymphocytes % (auto) 12.2 %; Mean Corpuscular Hemoglobin 30.4 pg (25-34); Mean Corpuscular Hgb Conc 31.2 g/dL (32-36); Mean Corpuscular Volume 97.2 fL (80-100); Mean Platelet Volume 10.3 fL (7.4-10.4); Monocytes % (auto) 5.7 %; Neutrophils # (auto) 7.07 K/uL (1.4-6.5); Platelet Count 324 K/uL (130-400); RDW Coefficient of Variation 15.9 % (11.5-14.5); RDW Standard Deviation 56.9 fL (36.4-46.3); Red Blood Count 4.25 M/uL (4.7-6.1); White Blood Count 8.84 K/uL (4.8-10.8)
[2021-07-28 13:06] LABS: BUN Creatinine Ratio 11.2 (10-20); Calcium 9.4 mg/dl (8.5-10.1); Creatinine Clr Calc Pharmacy 32.7 ml/min; Est GFR (African American) 25.8 ml/min; Est GFR (Non-African American) 22.3 ml/min; Potassium 4.4 mmol/L (3.5-5.1)
--- NOTE | 2021-07-28 13:44 | CT Scan Report ---
CT OF THE ABDOMEN AND PELVIS WITHOUT CONTRAST CLINICAL HISTORY: UTI. Possible obstruction. COMPARISON STUDY: No previous studies for comparison. TECHNIQUE: Axial images of the abdomen and pelvis were obtained without IV contrast. Images were revi ewed in the axial, sagittal, and coronal planes. Automated exposure control was utilized for the carola dy. A dose lowering technique was utilized adhering to the principles of ALARA. FINDINGS: Suspected right gynecomastia is partially imaged on this exam. There is a trace left pleura l effusion with pleural thickening. An adjacent 5.3 x 3 cm subpleural left lower lobe opacity contain s hyperdense foci. The appearance favors round atelectasis. No pneumatosis, free air or portal venous gas is present. Moderate bilateral renal atrophy is greater than left. Punctate bilateral renal calc arimda are present. There are no ureteral calculi. There is no hydronephrosis. There may be bilateral ur othelial thickening within the collecting systems and proximal ureters. Bladder wall is thickened, ir regular and trabeculated with suspected small bladder diverticula. Size of the prostate is normal. Th ere are gallstones within the gallbladder. There may be minimal pericholecystic stranding. Unenhanced images of the liver, spleen, adrenal glands and pancreas are unremarkable. No biliary or pancreatic ductal dilatation is present. There is no evidence for a bowel obstruction. The appendix is not visua lized. No abdominal or pelvic lymphadenopathy is present. There is no acute fracture or suspicious le jerry within the visualized skeletal structures. Fat-containing left inguinal hernia is present. IMPRESSION: 1. Punctate bilateral renal calculi. No ureteral calculi or hydronephrosis. 2. Possible urothelial thickening of the bilateral collecting systems and proximal ureters which coul d be correlated with urinalysis. Thickened, irregular and trabeculated bladder wall. 3. Cholelithiasis. Possible minimal pericholecystic infiltration. If right upper quadrant pain, ultra sound is recommended for further evaluation. 4. No bowel obstruction. No bowel wall thickening on unenhanced exam. 5. Left pleural thickening with a trace left pleural effusion. Subpleural left lower lobe opacity fav ors round atelectasis. ACT 112: Negative or not required by law. Electronically signed by: Tyree Hall M.D. 07/28/2021 1:42 PM
[2021-07-28] MEDS ORDERED: CEFEPIME 2,000 MG in SYRINGE 0 ML IV STA (14:57)
--- NOTE | 2021-07-28 15:36 | History & Physical Report ---
Date of Service July 28, 2021 Assessment & Plan (1) Acute UTI: Plan: UTI with pseudomonas on culture - Without prostate symptoms at current by review of symptoms - Continue with Cefepime 2gm IV q8 hour - Send urine cytology 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 with PROJECT ASSISTANT and BUN within his range - 1liter crystalloid already infused- hold further crystalloid as he can drink orally - Follow BMP in the morning- can likely restart in morning (3) Hypothyroidism: Plan: Continue to Synthroid (4) Paroxysmal atrial fibrillation: Plan: Remains in NSR with 1st degree AV block on his ECG on admission - Continue Apixaban (5) Hyperlipidemia: Plan: Continue statin (6) Abnormal CT scan: Plan: With cholelithiasis with note of some stranding- he denies abdominal pain - without fevers, pain, will add on LFTs- if abnormal will obtain RUQUS (7) Elevated glucose level: Plan: increased glucose with labs- without diagnosis of DM - HGB A1c in am - trend dextrose sticks through the PM- not currently on therapy - add coverage if > 180 on 2 consecutive checks History of Present Illness Primary Care Provider: Mann Bright, PEWTER FINISHER-C 75 YOM with past medical history of: HTN, Obesity, CKD, PAF (on Eliquis), Hypothyroidism, HLD, BPH. Patient was called today to return to [facility] for UA with culture that resulted with pseudomonas, this UA was drawn on the 26Jul2021 in the [facility], and he was placed on Bactrim PO at that time. He was evaluated on that visit for dizziness and dyspnea. Prior to this visit the patient was admitted in late June and had UTI with Urine culture with pseudomonas 1 and 2- 2nd colony was noted at 50K CFU/ml so no sensitivities followed. Pseudomonas # 1 was pansensitive- he was discharged on Cipro, which he completed but noted dizziness and GI upset with that, but states he continued to take it. He feels his breathing, dizziness, and abdominal discomfort that he was experiencing prior is resolved. The patient states that his urine is cloudy at home but with normal color, no fevers, no pain in his back or prostate area and no pain with urination or defecation. His WBC are normal on admission as well as NLR normal. He had a CT scan of the abdomen and pelvis performed in the [facility] that was notable for punctate bilateral renal calculi and possible urothelial thickening with thickened bladder. Also of note cholelithiasis with pericholecystic infiltration. He is without abdominal pain or CVA tenderness. [facility] As his urine is currently with 1 pseudomonas type and remains sensitive to Cefepime, will continue Cefepime 2GM IV q8 hours. Will add on CRP and PCT for biomarkers as patient is asymptomatic at this time. For his CKD his PROJECT ASSISTANT is within his baseline, he was given 1 liter of crystalloid in the [facility]. Allergies Allergy/AdvReac Type Severity Reaction Status Date / Time ciprofloxacin [From Cipro] AdvReac Intermediate Upset Unverified 07/28/21 13:36 Stomach, Nausea, GI Discomfort Home Medications Medication Instructions Recorded Confirmed Type apixaban 5 mg tablet 5 mg PO BID 04/25/21 07/28/21 History cholecalciferol (vitamin D3) 25 25 mcg PO QAM 04/25/21 07/28/21 History mcg (1,000 unit) capsule folic acid 1 mg tablet 1 mg PO QAM 04/25/21 07/28/21 History levothyroxine 88 mcg capsule 88 mcg PO DAILYBB 04/25/21 07/28/21 History metoprolol succinate 25 mg 12.5 mg PO BID tab 05/05/21 07/28/21 History tablet,extended release 24 hr ferrous sulfate 325 mg (65 mg 325 mg PO QAM 06/30/21 07/28/21 History iron) tablet (FeroSul) gabapentin 100 mg capsule 100 mg PO QID PRN 06/30/21 07/28/21 History trazodone 50 mg tablet 50 mg PO HS PRN 06/30/21 07/28/21 History sulfamethoxazole 800 1 tab PO BID 10 Days #20 tab 07/26/21 07/28/21 Rx mg-trimethoprim 160 mg tablet (Bactrim DS) lisinopril 5 mg tablet 5 mg PO DAILY 07/28/21 07/28/21 History Past Med/Surg History Medical History Age-related nuclear cataract, right eye 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 Vitamin D deficiency Social History Smoking Status: Never smoker Hx Alcohol Use: No Hx Substance Use: No Preferred Language: Iranian Communication Ability: Effective Computer Network Engineer Required: No Beliefs That Will Affect Care: None Current Living Situation: Alone Other Information That Helps Us Care for You: No Feels Safe at Home: Yes Safety Concerns: Feels Safe At This Time Assistive Devices: Glasses and Walker Review of Systems Review of Systems: REVIEW OF SYSTEMS: Constitutional: No fever, sweats or chills Eyes: No diplopia, no worsening or blurred vision ENT: normal hearing, no trouble swallowing Respiratory: No cough, sputum, dyspnea at rest or on exertion Cardiovascular: No chest pain, tightness or palpitations Abdomen: (+) obese, No pain, nausea, vomiting, diarrhea or constipation Musculoskeletal: No joint pain, calf pain, swelling Neurologic: No weakness, numbness/tingling, or balance problems Psychiatric: No anxiety or depression Skin: (+) venous discoloration of the lower extremities bilaterally Physical Exam Physical Exam: PHYSICAL EXAM: General: awake, alert, no apparent distress Head: Normocephalic, atraumatic ENT: PERRL, EOMI, no pharyngeal exudate, mucous membranes moist Neuro: AAO x 3, speech clear and appropriate, strength intact bilaterally 5/5, sensation intact and equal all extremities and dermatomes, no pronator drift Chest: equal rise and fall of the chest, no accessory muscle use, no heaves or thrills, Clear to auscultation, on room air, Cardiac: Regular rate and rhythm, telemetry reviewed, skin warm dry, cap refill <3 seconds, peripheral pulses +2 no JVD, no murmur, no edema GI: NABS x 4 quadrants, soft, nontender to palpation, no rebound, guarding or tenderness : Spontaneously voiding, no pain, no CVA tenderness, Extremities: venous discoloration to bilateral lower extremities, Normal inspection, no peripheral edema or erythema, calfs nontender to palpation Psych: Normal mood and affect Skin: no rash or erythema Results & Data Results & Data ([facility]) Vital Signs (Past 12 Hours) Vital Signs Temp Pulse Resp BP Pulse Ox 07/28/21 14:30 58 L 18 180/82 H 97 07/28/21 14:00 62 18 172/69 H 96 07/28/21 13:32 64 18 187/91 H 95 07/28/21 12:30 64 18 158/104 H 94 07/28/21 11:58 36.3 C L 66 22 190/73 H 94 Laboratory Results Abnormal lab results 07/28/21 07/28/21 Range/Units 12:22 12:22 RBC 4.25 L (4.7-6.1) M/uL Hgb 12.9 L (14.0-18.0) g/dL Hct 41.3 L (42-52) % MCHC 31.2 L (32-36) g/dL RDW Std Deviation 56.9 H (36.4-46.3) fL RDW Coeff of Yolanda 15.9 H (11.5-14.5) % Neut # (Auto) 7.07 H (1.4-6.5) K/uL Lymph # (Auto) 1.08 L (1.2-3.4) K/uL Immature Gran # (Auto) 0.03 H (0.00-0.02) K/uL BUN 30 H (6-23) mg/dl Creatinine 2.68 H (0.6-1.4) mg/dl Glucose 182 H (70-99(Fasting)) mg/dl Urine Culture Final 07/28/21-09 Organism 1 Pseudomonas aeruginosa [place] Count >100,000 CFU/ml Sens Sensitivities to Follow P aer[facility] --- --------- Cefepime S <=2 Ceftazidime S <=1 Ciprofloxacin I 1 Gentamicin S <=4 Levofloxacin I 2 Meropenem S 2 Tobramycin S <=4 Pip/Tazo S <=16 Diagnostic Findings Abdomen/Pelvis CT 07/28/21 12:12 CT OF THE ABDOMEN AND PELVIS WITHOUT CONTRAST CLINICAL HISTORY: UTI. Possible obstruction. COMPARISON STUDY: No previous studies for comparison. TECHNIQUE: Axial images of the abdomen and pelvis were obtained without IV contrast. Images were reviewed in the axial, sagittal, and coronal planes. Automated exposure control was utilized for the study. A dose lowering technique was utilized adhering to the principles of ALARA. FINDINGS: Suspected right gynecomastia is partially imaged on this exam. There is a trace left pleural effusion with pleural thickening. An adjacent 5.3 x 3 cm subpleural left lower lobe opacity contains hyperdense foci. The appearance favors round atelectasis. No pneumatosis, free air or portal venous gas is present. Moderate bilateral renal atrophy is greater than left. Punctate bilateral renal calculi are present. There are no ureteral calculi. There is no hydronephrosis. There may be bilateral urothelial thickening within the collecting systems and proximal ureters. Bladder wall is thickened, irregular and trabeculated with suspected small bladder diverticula. Size of the prostate is normal. There are gallstones within the gallbladder. There may be minimal pericholecystic stranding. Unenhanced images of the liver, spleen, adrenal glands and pancreas are unremarkable. No biliary or pancreatic ductal dilatation is present. There is no evidence for a bowel obstruction. The appendix is not visualized. No abdominal or pelvic lymphadenopathy is present. There is no acute fracture or suspicious lesion within the visualized skeletal structures. Fat- containing left inguinal hernia is present. IMPRESSION: 1. Punctate bilateral renal calculi. No ureteral calculi or hydronephrosis. 2. Possible urothelial thickening of the bilateral collecting systems and proximal ureters which could be correlated with urinalysis. Thickened, irregular and trabeculated bladder wall. 3. Cholelithiasis. Possible minimal pericholecystic infiltration. If right upper quadrant pain, ultrasound is recommended for further evaluation. 4. No bowel obstruction. No bowel wall thickening on unenhanced exam. 5. Left pleural thickening with a trace left pleural effusion. Subpleural left lower lobe opacity favors round atelectasis. ACT 112: Negative or not required by law. Electronically signed by: Tyree Hall M.D. 07/28/2021 1:42 PM Medications Administered Discontinued Medications Sodium Chloride (Nss 1000ml) 500 mls @ 999 mls/hr IV .Q31M ONE Stop: 07/28/21 12:30 Last Infusion: 07/28/21 13:02 Dose: 0 mls/hr Documented by: [id number] Admin: 07/28/21 12:27 Dose: 999 mls/hr Documented by: [id number] Cefepime HCl (Maxipime) 2,000 mg in 20 mls @ 5 mls/min IV NOW STA; Protocol Stop: 07/28/21 12:03 Last Admin: 07/28/21 12:27 Dose: 5 mls/min Documented by: [id number] Cefepime HCl 2,000 mg/ Syringe 20 mls @ 5 mls/min IV Q8 STA; Protocol Stop: 07/28/21 15:00 Last Admin: 07/28/21 15:14 Dose: 5 mls/min Documented by: [id number] Home Medications apixaban 5 mg tablet 5 mg PO BID 04/25/21 [History Confirmed 07/28/21] cholecalciferol (vitamin D3) 25 mcg (1,000 unit) capsule 25 mcg PO QAM 04/25/21 [History Confirmed 07/28/21] folic acid 1 mg tablet 1 mg PO QAM 04/25/21 [History Confirmed 07/28/21] levothyroxine 88 mcg capsule 88 mcg PO DAILYBB 04/25/21 [History Confirmed 07/28/21] metoprolol succinate 25 mg tablet,extended release 24 hr 12.5 mg PO BID tab 05/05/21 [History Confirmed 07/28/21] ferrous sulfate 325 mg (65 mg iron) tablet (FeroSul) 325 mg PO QAM 06/30/21 [History Confirmed 07/28/21] gabapentin 100 mg capsule 100 mg PO QID PRN 06/30/21 [History Confirmed 07/28/21] trazodone 50 mg tablet 50 mg PO HS PRN 06/30/21 [History Confirmed 07/28/21] sulfamethoxazole 800 mg-trimethoprim 160 mg tablet (Bactrim DS) 1 tab PO BID 10 Days #20 tab 07/26/21 [Rx Confirmed 07/28/21] lisinopril 5 mg tablet 5 mg PO DAILY 07/28/21 [History Confirmed 07/28/21] ECG Additional Comments: Vent. Rate : 072 BPM Atrial Rate : 072 BPM P-R Int : 228 ms QRS Dur : 104 ms QT Int : 388 ms P-R-T Axes : 061 -23 082 degrees QTc Int : 424 ms Sinus rhythm with 1st degree A-V block Nonspecific ST and T wave abnormality Abnormal ECG When compared with ECG of 30-JUN-2021 04:14, No significant change was found Confirmed by Onofre Christiansen ([id number]) on 07/26/2021 11:53:45 AM Code Status & VTE Plan Code Status CODE: FULL VTE: SCDS, Apixaban VTE Prophylaxis Plan VTE Prophylaxis will be ordered: Yes Supervising Physician Co-Signing Physician Notes Attending addendum: I have physically seen this patient, have supervised the medical residents activities, and agree with the H&P unless as otherwise noted. Assessment and Plan: Recurrent urinary tract infection- History of Pseudomonas aeruginosa infections x2 1 with intermediate sensitivity to Cipro and levofloxacin Continue cefepime 2 g IV every 8 hours Follow urine culture sensitivities Recommend a minimum of 2 weeks of antibiotics, IV changed to oral as cultures permit CKD stage III - creatinine 2.6 upon admission, with range 2.15-2.67 Status post 1 L IV fluids in ED Follow laboratory serially Remaining orders and notations as noted PG Care Time/CCT Total # of Minutes Spent Total Time Spent with Patient: Total time spent is greater than 50% in coordination of care (as documented) at patient's floor/unit and/or counseling patient: Coding Level of Care Code 35021 Initial Inpt Care Lvl 3 Diagnoses Acute UTI N39.0 CKD (chronic kidney disease), stage III N18.30 Hypothyroidism E03.9 Hypothyroidism type: unspecified Paroxysmal atrial fibrillation I48.[address] scan R93.89 Elevated glucose level R73.09 (1) Hypothyroidism Hypothyroidism type: unspecified Qualified Code(s): E03.9 - Hypothyroidism, unspecified
[2021-07-28] MEDS ORDERED: GABAPENTIN 100 MG CAP PO PRN (16:07)
[2021-07-28] MEDS ORDERED: ONDANSETRON INJ 2 MG/ML 2 ML VIAL IV PRN (16:07)
[2021-07-28] MEDS ORDERED: ACETAMINOPHEN 325 MG TAB PO PRN (16:07)
[2021-07-28] MEDS ORDERED: traZODone HCL 50 MG TAB PO PRN (16:07)
[2021-07-28 16:16] LABS: Albumin Level 3.6 gm/dl (3.4-5.0); Bilirubin,Total 0.4 mg/dl (0.2-1.0); Total Protein 7.5 gm/dl (6.0-8.3)
[2021-07-28] MEDS: METOPROLOL SUCC 25MG EXT REL TAB PO SCH (21:43)
[2021-07-28] MEDS: APIXABAN 5 MG TABLET PO SCH (21:44)
[2021-07-29] MEDS: LEVOTHYROXINE SODIUM 88 MCG TABLET PO SCH (06:15)
[2021-07-29] MEDS: CHOLECALCIFEROL 1,000 UNITS 25 MCG TAB PO SCH (08:41)
[2021-07-29] MEDS: APIXABAN 5 MG TABLET PO SCH ×2 (08:41→20:00)
[2021-07-29] MEDS: METOPROLOL SUCC 25MG EXT REL TAB PO SCH ×2 (08:42→20:00)
[2021-07-29 08:43] LABS: Basophils # (auto) 0.02 K/uL (0-0.2); Basophils % (auto) 0.2 %; Eosinophils # (auto) 0.14 K/uL (0-0.5); Eosinophils % (auto) 1.6 %; Hemoglobin 12.1 g/dL (14.0-18.0); Immature Granulocytes # (auto) 0.02 K/uL (0.00-0.02); Immature Granulocytes % (auto) 0.2 %; Lymphocytes # (auto) 0.85 K/uL (1.2-3.4); Lymphocytes % (auto) 9.6 %; Mean Corpuscular Hemoglobin 30.6 pg (25-34); Mean Corpuscular Hgb Conc 31.8 g/dL (32-36); Mean Corpuscular Volume 96.2 fL (80-100); Mean Platelet Volume 10.1 fL (7.4-10.4); Monocytes % (auto) 6.8 %; Neutrophils # (auto) 7.23 K/uL (1.4-6.5); Neutrophils % (auto) 81.6 %; Platelet Count 283 K/uL (130-400); RDW Coefficient of Variation 15.8 % (11.5-14.5); RDW Standard Deviation 55.7 fL (36.4-46.3); Red Blood Count 3.95 M/uL (4.7-6.1); White Blood Count 8.86 K/uL (4.8-10.8)
--- NOTE | 2021-07-29 09:01 | Hospitalist Progress Note ---
Date of Service July 29, 2021 Assessment & Plan (1) Acute UTI: Plan: UTI with pseudomonas on culture and ureteral thickening on CT. 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 and BUN within his range - 1liter crystalloid given in ER - hold further IV fluids as he can drink orally - Repeat Cr stable (3) Hypothyroidism: Plan: Continue Synthroid (4) Paroxysmal atrial fibrillation: Plan: Remains in NSR with 1st degree AV block on his ECG on admission - Continue Apixaban (5) Hyperlipidemia: Plan: Continue statin (6) Abnormal CT scan: Plan: With cholelithiasis with note of some stranding- he denies abdominal pain - without fevers, pain on exam - do not suspect cholecystitis (7) Elevated glucose level: Plan: increased glucose with labs- without diagnosis of DM - HGB A1c 7.5 - consider starting on metformin on discharge Plan: VTE Prophylaxis - Eliquis Diet - T2DM Disposition - continued admission pending blood cultures negative after 48 hours for US guided IV line Admission and Anticipated Discharge Date Admission Date: July 28, 2021 Subjective Patient reports feeling at baseline. No abdominal pain, fever, chills or urinary symptoms. Review of Systems Review of Systems: All systems reviewed & are unremarkable except as noted in Subjective Physical Exam Constitutional: WD/WN, vitals as above Respiratory: normal respiratory effort, lungs clear to auscultation Cardiovascular: RRR, no murmur, no edema Gastrointestinal (Abdomen): Inspection/Auscultation: normal bowel sounds Percussion/Palpation: abdomen soft; abdomen nontender, no guarding and abdomen not rigid Psychiatric: A+Ox3, euthymic affect Genitourinary: no CVA tenderness Results & Data Results & Data ([facility]) Vital Signs (Past 12 Hours) Vital Signs Temp Pulse Resp BP Pulse Ox 07/29/21 07:34 36.5 C 61 20 138/59 L 98 07/28/21 21:44 36.6 C 64 21 178/84 H 96 PG Care Time/CCT Total # of Minutes Spent Total Time Spent with Patient: Total time spent is greater than 50% in coordination of care (as documented) at patient's floor/unit and/or counseling patient: Coding Level of Care Code 75823 Subseq Hosp Care Lvl 2 Diagnoses Acute UTI N39.0 CKD (chronic kidney disease), stage III N18.30 Hypothyroidism E03.9 Hypothyroidism type: unspecified Paroxysmal atrial fibrillation I48.[address] scan R93.89 Elevated glucose level R73.09 (1) Hypothyroidism Hypothyroidism type: unspecified Qualified Code(s): E03.9 - Hypothyroidism, unspecified
[2021-07-29 09:10] LABS: BUN Creatinine Ratio 12.5 (10-20); Calcium 9.1 mg/dl (8.5-10.1); Creatinine Clr Calc Pharmacy 35.4 ml/min; Est GFR (African American) 27.4 ml/min; Est GFR (Non-African American) 23.6 ml/min; Magnesium 2.1 mg/dl (1.7-2.4); Potassium 4.6 mmol/L (3.5-5.1)
[2021-07-29] MEDS: CEFEPIME 2,000 MG in SYRINGE 0 ML IV SCH ×2 (09:29→20:42)
[2021-07-29 10:28] LABS: Estimated Average Glucose 169 mg/dl; Hemoglobin A1C 7.5 % (4.5-5.6)
--- NOTE | 2021-07-29 11:41 | XRay Report ---
XR chest 2V PA/lateral HISTORY: Hypoxia. COMPARISON: Chest 07/26/2021. Abdomen and pelvis CT 07/28/2021. FINDINGS: No pneumothorax. Trace left pleural effusion and a hazy density within the left lower lung zone persists. This corresponds to the area of consolidation/scarring within the left lung base seen on the prior CT examination. Otherwise, no new focal lung consolidations identified. No evidence for pulmonary edema. The heart remains mildly enlarged. There are calcifications at the aortic knob. IMPRESSION: 1. Chronic changes at the left lung base again noted. 2. No new focal lung consolidations identified. 3. Stable cardiomegaly. ACT 112: Negative or not required by law. Electronically signed by: Davy Brooke M.D. 07/29/2021 11:40 AM
[2021-07-29] MEDS ORDERED: PROMETHAZINE HCL 12.5 MG/10 ML UDP PO PRN (11:42)
[2021-07-29] MEDS ORDERED: PROMETHAZINE HCL 25 MG TAB PO PRN (14:00)
[2021-07-30] MEDS: LEVOTHYROXINE SODIUM 88 MCG TABLET PO SCH (05:48)
[2021-07-30] MEDS: APIXABAN 5 MG TABLET PO SCH ×2 (08:28→20:01)
[2021-07-30] MEDS: CEFEPIME 2,000 MG in SYRINGE 0 ML IV SCH ×2 (08:28→20:02)
[2021-07-30] MEDS: METOPROLOL SUCC 25MG EXT REL TAB PO SCH ×2 (08:29→20:01)
[2021-07-30] MEDS: CHOLECALCIFEROL 1,000 UNITS 25 MCG TAB PO SCH (08:29)
[2021-07-30 08:33] LABS: Basophils # (auto) 0.02 K/uL (0-0.2); Basophils % (auto) 0.3 %; Eosinophils # (auto) 0.16 K/uL (0-0.5); Eosinophils % (auto) 2.1 %; Hematocrit (blood only) 38.4 % (42-52); Hemoglobin 11.9 g/dL (14.0-18.0); Immature Granulocytes # (auto) 0.01 K/uL (0.00-0.02); Immature Granulocytes % (auto) 0.1 %; Lymphocytes # (auto) 1.02 K/uL (1.2-3.4); Lymphocytes % (auto) 13.1 %; Mean Corpuscular Hemoglobin 30.1 pg (25-34); Mean Platelet Volume 10.3 fL (7.4-10.4); Monocytes # (auto) 0.41 K/uL (0.11-0.59); Monocytes % (auto) 5.3 %; Neutrophils # (auto) 6.14 K/uL (1.4-6.5); Neutrophils % (auto) 79.1 %; Platelet Count 292 K/uL (130-400); RDW Coefficient of Variation 15.9 % (11.5-14.5); RDW Standard Deviation 56.3 fL (36.4-46.3); Red Blood Count 3.96 M/uL (4.7-6.1); White Blood Count 7.76 K/uL (4.8-10.8)
[2021-07-30 08:55] LABS: BUN Creatinine Ratio 12.8 (10-20); Calcium 9.1 mg/dl (8.5-10.1); Est GFR (Non-African American) 23.3 ml/min; Magnesium 2.3 mg/dl (1.7-2.4); Potassium 4.3 mmol/L (3.5-5.1)
[2021-07-30] MEDS: ONDANSETRON INJ 2 MG/ML 2 ML VIAL IV PRN (09:29)
[2021-07-30] MEDS: ADVANCED PROBIOTIC 1250 MG CAPSULE PO SCH (09:29)
[2021-07-31] MEDS: ONDANSETRON INJ 2 MG/ML 2 ML VIAL IV PRN (02:01)
[2021-07-31] MEDS: LEVOTHYROXINE SODIUM 88 MCG TABLET PO SCH (05:26)
--- NOTE | 2021-07-31 06:45 | Hospitalist Progress Note ---
Date of Service July 30, 2021 Assessment & Plan (1) Acute UTI: Plan: UTI with pseudomonas on culture and ureteral thickening on CT. No CVA tenderness - Without prostate symptoms at current by review of symptoms - Continue with Cefepime 2gm IV q12h (renally dosed) - Follow up blood cultures - negative @ 24 hours. Planning on US guided IV once negative at 48 hours. 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 and BUN within his range - 1liter crystalloid given in ER - hold further IV fluids as he can drink orally - Repeat Cr stable (3) Hypothyroidism: Plan: Continue Synthroid (4) Paroxysmal atrial fibrillation: Plan: Remains in NSR with 1st degree AV block on his ECG on admission - Continue Apixaban (5) Hyperlipidemia: Plan: Continue statin (6) Abnormal CT scan: Plan: With cholelithiasis with note of some stranding- he denies abdominal pain - without fevers, pain on exam - do not suspect cholecystitis (7) Elevated glucose level: Plan: increased glucose with labs- without diagnosis of DM - HGB A1c 7.5 - consider starting on metformin on discharge Plan: VTE Prophylaxis - Eliquis Diet - T2DM Disposition - continued admission pending blood cultures negative after 48 hours for US guided IV line Admission and Anticipated Discharge Date Admission Date: July 28, 2021 Subjective No acute change. No abdominal pain with eating. Awaiting blood culture to be negative after 48 hours. Patient reports unable to do IV antibiotics at home therefore may need placement and PT/OT ordered. Review of Systems Review of Systems: All systems reviewed & are unremarkable except as noted in Subjective Physical Exam Constitutional: WD/WN, vitals as above Respiratory: normal respiratory effort, lungs clear to auscultation Cardiovascular: RRR, no murmur, no edema Gastrointestinal (Abdomen): Inspection/Auscultation: normal bowel sounds Percussion/Palpation: abdomen soft; abdomen nontender, no guarding and abdomen not rigid Psychiatric: A+Ox3, euthymic affect Genitourinary: no CVA tenderness Results & Data Results & Data ([facility]) Vital Signs (Past 12 Hours) Vital Signs Temp Pulse Resp BP Pulse Ox 07/30/21 20:00 36.7 C 69 20 169/75 H 95 PG Care Time/CCT Total # of Minutes Spent Total Time Spent with Patient: Total time spent is greater than 50% in coordination of care (as documented) at patient's floor/unit and/or counseling patient: Coding Level of Care Code 99276 Subseq Hosp Care Lvl 1 Diagnoses Acute UTI N39.0 CKD (chronic kidney disease), stage III N18.30 Hypothyroidism E03.9 Hypothyroidism type: unspecified Paroxysmal atrial fibrillation I48.[address] scan R93.89 Elevated glucose level R73.09 (1) Hypothyroidism Hypothyroidism type: unspecified Qualified Code(s): E03.9 - Hypothyroidism, unspecified
[2021-07-31] MEDS: ADVANCED PROBIOTIC 1250 MG CAPSULE PO SCH (08:43)
[2021-07-31] MEDS: APIXABAN 5 MG TABLET PO SCH ×2 (08:43→20:05)
[2021-07-31] MEDS: CEFEPIME 2,000 MG in SYRINGE 0 ML IV SCH ×2 (08:43→20:04)
[2021-07-31] MEDS: METOPROLOL SUCC 25MG EXT REL TAB PO SCH ×2 (08:43→20:04)
[2021-07-31] MEDS: CHOLECALCIFEROL 1,000 UNITS 25 MCG TAB PO SCH (08:43)
[2021-07-31 08:52] LABS: Basophils # (auto) 0.02 K/uL (0-0.2); Basophils % (auto) 0.2 %; Eosinophils # (auto) 0.14 K/uL (0-0.5); Eosinophils % (auto) 1.7 %; Hematocrit (blood only) 38.1 % (42-52); Hemoglobin 12.1 g/dL (14.0-18.0); Immature Granulocytes # (auto) 0.02 K/uL (0.00-0.02); Immature Granulocytes % (auto) 0.2 %; Lymphocytes # (auto) 0.88 K/uL (1.2-3.4); Lymphocytes % (auto) 10.9 %; Mean Corpuscular Hemoglobin 30.5 pg (25-34); Mean Corpuscular Hgb Conc 31.8 g/dL (32-36); Mean Platelet Volume 10.2 fL (7.4-10.4); Monocytes # (auto) 0.59 K/uL (0.11-0.59); Monocytes % (auto) 7.3 %; Neutrophils # (auto) 6.43 K/uL (1.4-6.5); Neutrophils % (auto) 79.7 %; Platelet Count 289 K/uL (130-400); RDW Coefficient of Variation 15.8 % (11.5-14.5); RDW Standard Deviation 55.8 fL (36.4-46.3); Red Blood Count 3.97 M/uL (4.7-6.1); White Blood Count 8.08 K/uL (4.8-10.8)
[2021-07-31 09:23] LABS: BUN Creatinine Ratio 15.1 (10-20); Calcium 9.2 mg/dl (8.5-10.1); Creatinine Clr Calc Pharmacy 35.8 ml/min; Est GFR (African American) 27.8 ml/min; Magnesium 2.3 mg/dl (1.7-2.4)
--- NOTE | 2021-07-31 20:40 | Hospitalist Progress Note ---
Date of Service July 31, 2021 Assessment & Plan (1) Acute UTI: Plan: UTI with pseudomonas on culture and ureteral thickening on CT. No CVA tenderness - Without prostate symptoms at current by review of symptoms - Continue with Cefepime 2gm IV q12h (renally dosed) - Follow up blood cultures - negative @ 24 hours. Planning on US guided IV once negative at 48 hours. 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 and BUN within his range - 1liter crystalloid given in ER - hold further IV fluids as he can drink orally - Repeat Cr stable (3) Hypothyroidism: Plan: Continue Synthroid (4) Paroxysmal atrial fibrillation: Plan: Remains in NSR with 1st degree AV block on his ECG on admission - Continue Apixaban (5) Hyperlipidemia: Plan: Continue statin (6) Abnormal CT scan: Plan: With cholelithiasis with note of some stranding- he denies abdominal pain - without fevers, pain on exam - do not suspect cholecystitis (7) Elevated glucose level: Plan: increased glucose with labs- without diagnosis of DM - HGB A1c 7.5 - consider starting on metformin on discharge Plan: VTE Prophylaxis - Eliquis Diet - T2DM Disposition - continued admission pending blood cultures negative after 48 hours for US guided IV line Admission and Anticipated Discharge Date Admission Date: July 28, 2021 Subjective 75 yo male reports no new symptoms. Review of Systems Review of Systems: All systems reviewed & are unremarkable except as noted in HPI & below Physical Exam Physical Exam: Constitutional: WD/WN, vitals as above Respiratory: normal respiratory effort, lungs clear to auscultation Cardiovascular: RRR, no murmur, no edema Gastrointestinal (Abdomen): Inspection/Auscultation: normal bowel sounds Percussion/Palpation: abdomen soft; abdomen nontender, no guarding and abdomen not rigid Psychiatric: A+Ox3, euthymic affect Genitourinary: no CVA tenderness Results & Data Results & Data ([facility]) Vital Signs (Past 12 Hours) Vital Signs Temp Pulse Resp BP Pulse Ox 07/31/21 15:38 36.7 C 66 17 173/71 H 93 PG Care Time/CCT Total # of Minutes Spent Total Time Spent with Patient: Total time spent is greater than 50% in coordination of care (as documented) at patient's floor/unit and/or counseling patient: Coding Level of Care Code 33199 Subseq Hosp Care Lvl 2 Diagnoses Acute UTI N39.0 CKD (chronic kidney disease), stage III N18.30 Hypothyroidism E03.9 Hypothyroidism type: unspecified Paroxysmal atrial fibrillation I48.[address] scan R93.89 Elevated glucose level R73.09 Time Spent (min) 25 (1) Hypothyroidism Hypothyroidism type: unspecified Qualified Code(s): E03.9 - Hypothyroidism, unspecified
[2021-08-01] MEDS: ONDANSETRON INJ 2 MG/ML 2 ML VIAL IV PRN (00:49)
[2021-08-01] MEDS: LEVOTHYROXINE SODIUM 88 MCG TABLET PO SCH (05:30)
[2021-08-01] MEDS: ADVANCED PROBIOTIC 1250 MG CAPSULE PO SCH (08:53)
[2021-08-01] MEDS: CHOLECALCIFEROL 1,000 UNITS 25 MCG TAB PO SCH (08:53)
[2021-08-01] MEDS: APIXABAN 5 MG TABLET PO SCH (08:53)
[2021-08-01] MEDS: METOPROLOL SUCC 25MG EXT REL TAB PO SCH (08:57)
[2021-08-01] MEDS: CEFEPIME 2,000 MG in SYRINGE 0 ML IV SCH (08:57)
--- NOTE | 2021-08-01 13:22 | Discharge Summary ---
Date of Service August 01, 2021 Admission HPI Per Admitting Provider 75 YOM with past medical history of: HTN, Obesity, CKD, PAF (on Eliquis), Hypothyroidism, HLD, BPH. Patient was called today to return to [facility] for UA with culture that resulted with pseudomonas, this UA was drawn on the 26Jul2021 in the [facility], and he was placed on Bactrim PO at that time. He was evaluated on that visit for dizziness and dyspnea. Prior to this visit the patient was admitted in late June and had UTI with Urine culture with pseudomonas 1 and 2- 2nd colony was noted at 50K CFU/ml so no sensitivities followed. Pseudomonas # 1 was pansensitive- he was discharged on Cipro, which he completed but noted dizziness and GI upset with that, but states he continued to take it. He feels his breathing, dizziness, and abdominal discomfort that he was experiencing prior is resolved. The patient states that his urine is cloudy at home but with normal color, no fevers, no pain in his back or prostate area and no pain with urination or defecation. His WBC are normal on admission as well as NLR normal. He had a CT scan of the abdomen and pelvis performed in the EMD that was notable for punctate bilateral renal calculi and possible urothelial thickening with thickened bladder. Also of note cholelithiasis with pericholecystic infiltration. He is without abdominal pain or CVA tenderness. [facility] As his urine is currently with 1 pseudomonas type and remains sensitive to Cefepime, will continue Cefepime 2GM IV q8 hours. Will add on CRP and PCT for biomarkers as patient is asymptomatic at this time. For his CKD his MANAGER POST is within his baseline, he was given 1 liter of crystalloid in the EMD. Principal Diagnosis acute UTI Discharge Exam Constitutional: WD/WN, vitals as above Respiratory: normal respiratory effort, lungs clear to auscultation Cardiovascular: RRR, no murmur, no edema Gastrointestinal (Abdomen): Inspection/Auscultation: normal bowel sounds Percussion/Palpation: abdomen soft; abdomen nontender, no guarding and abdomen not rigid Psychiatric: A+Ox3, euthymic affect Genitourinary: no CVA tenderness Discharge Data Allergies Allergy/AdvReac Type Severity Reaction Status Date / Time ciprofloxacin [From Cipro] AdvReac Intermediate Upset Unverified 07/28/21 13:36 Stomach, Nausea, GI Discomfort Consultations 07/28/21 13:53 ED Decision to Admit Stat Ordered Studies 07/28/21 12:12 CT abd pelvis wo con Stat 08/01/21 13:01 US guide vascular access Urgent Hospital Course (1) Acute UTI: UTI with pseudomonas on culture and ureteral thickening on CT. No CVA tenderness - Without prostate symptoms at current by review of symptoms - Continue with Cefepime 2gm IV q12h (renally dosed) - Follow up blood cultures - negative @ 24 hours. Planning on US guided IV once negative at 48 hours. - No PSA in our system but chronic bladder thickening possible retention -will continue with cefepime for an additional 10 more days. (2) CKD (chronic kidney disease), stage III: Stable at this time with MANAGER POST and BUN within his range - 1liter crystalloid given in ER - hold further IV fluids as he can drink orally - Repeat Cr stable (3) Hypothyroidism: Continue Synthroid (4) Paroxysmal atrial fibrillation: Remains in NSR with 1st degree AV block on his ECG on admission - Continue Apixaban (5) Hyperlipidemia: Continue statin (6) Abnormal CT scan: With cholelithiasis with note of some stranding- he denies abdominal pain - without fevers, pain on exam - do not suspect cholecystitis (7) Elevated glucose level: increased glucose with labs- without diagnosis of DM - HGB A1c 7.5 - consider starting on metformin on discharge VTE Prophylaxis - Eliquis Diet - T2DM Disposition - continued admission pending blood cultures negative after 48 hours for US guided IV line Total Time Total Time Spent Total Time Spent (In Minutes): 40 Discharge Plan Discharge Items Patient Disposition: Transfer Inpatient Rehab Fac Reason For Visit: UTI Discharge Diagnosis: UTI Condition on Discharge: Good Activity: Resume your previous activity Non-emergency contact: Primary Care Provider Call non-emergency contact if: you have any medication questions Follow-up/Referrals: Mann Bright, SHANE-C [Primary Care Provider] - Diet: Carb Consistent or DM2 Addtl Attending Provider Instructions: You have been hospitalized for an acute medical problem. During your stay at [facility], we have made an effort to correct the problem that brought you to the hospital while keeping you as comfortable as possible. Medications were used to bring your condition under control and your discharge instructions will include directions for any medications you should take after leaving the hospital. Please make sure you see your Primary Care Provider as part of your follow up plan. Continue antibiotics for 10 more days. Pending Studies at Discharge: No Stand-Alone Forms: My [facility] Skilled Items Patient informed of condition?: Yes DNR: No Discharge Level of Care: Acute rehab Communicable Disease: No Discharge Prognosis: Stable Lines: US Guided Peripheral IV Urinary Catheter: No Medications and DC Order Prescriptions: New Advanced Probiotic 625 mg (10 billion cell) Capsule 2 cap PO DAILY Qty: 30 RF: 0 cefepime 2 gram recon soln 2 g IV Q12H Qty: 20 RF: 0 Continued apixaban 5 mg tablet 5 mg PO BID RF: 0 cholecalciferol (vitamin D3) 25 mcg (1,000 unit) capsule 25 mcg PO QAM RF: 0 folic acid 1 mg tablet 1 mg PO QAM RF: 0 levothyroxine 88 mcg capsule 88 mcg PO DAILYBB RF: 0 metoprolol succinate 25 mg tablet extended release 24 hr 12.5 mg PO BID RF: 0 trazodone 50 mg tablet 50 mg PO HS PRN (Reason: Sleep) RF: 0 ferrous sulfate [FeroSul] 325 mg (65 mg iron) tablet 325 mg PO QAM RF: 0 gabapentin 100 mg capsule 100 mg PO QID PRN (Reason: Nerve Pain) RF: 0 lisinopril 5 mg tablet 5 mg PO DAILY RF: 0 Discontinued sulfamethoxazole-trimethoprim [Bactrim DS] 800-160 mg tablet 1 tab PO BID 10 Days Qty: 20 RF: 0 Discharge Orders: Discharge Order (Routine); Ordered 08/01/21 Ordered By: Lito Lopez Admission Data Admit Date/Time: 07/28/21 14:41 Attending Provider: Lito Lopez Admit Provider: Chintan Sher Primary Care Provider: Mann Bright Other Providers: Chintan Sher ; [place] ; [facility] Other Interventions: Discharge Summary Assessment (RN) Last Done: 08/01/21 16:11 Coding Level of Care Code D/C DAY MANAGEMENT >30 MINS Diagnoses Acute UTI N39.0 CKD (chronic kidney disease), stage III N18.30 Hypothyroidism E03.9 Hypothyroidism type: unspecified Paroxysmal atrial fibrillation I48.[address] scan R93.89 Elevated glucose level R73.09
== END 2021-08-01 17:46 | DRG 690 ==
LOC: ED 11:54 → 3N 14:41 → SUATTDRO 14:41 → 3N 15:40

== ENCOUNTER 2021-11-27 10:07 | Inpatient (IN) ==
[2021-11-27] MEDS ORDERED: ONDANSETRON INJ 2 MG/ML 2 ML VIAL IV STA (10:50)
[2021-11-27] MEDS ORDERED: SODIUM CHLORIDE 0.9% 500 ML IV STA (10:50)
[2021-11-27 10:59] LABS: Basophils # (auto) 0.04 K/uL (0-0.2); Basophils % (auto) 0.4 %; Eosinophils # (auto) 0.11 K/uL (0-0.50); Eosinophils % (auto) 1.2 %; Hematocrit (blood only) 40.8 % (40.1-51.0); Hemoglobin 12.8 g/dl (14.0-18.0); Immature Granulocytes # (auto) 0.04 K/uL (0.00-0.02); Immature Granulocytes % (auto) 0.4 %; Lymphocytes # (auto) 1.36 K/uL (1.2-3.4); Lymphocytes % (auto) 14.8 %; Mean Corpuscular Hemoglobin 29.6 pg (25.0-34.0); Mean Corpuscular Hgb Conc 31.4 g/dL (32.0-36.0); Mean Corpuscular Volume 94.4 fL (80.0-100.0); Monocytes # (auto) 0.55 K/uL (0.24-0.82); Neutrophils # (auto) 7.07 K/uL (1.4-6.5); Neutrophils % (auto) 77.2 %; Platelet Count 288 K/uL (130-400); RDW Standard Deviation 52.7 fL (36.4-46.3); Red Blood Count 4.32 M/uL (4.63-6.08); White Blood Count 9.17 K/ul (4.8-10.8)
--- NOTE | 2021-11-27 11:04 | Emergency Department Note ---
Impression & Plan Urinary tract infection, Acute hyperglycemia, Nausea & vomiting ED Provider Note NAME: DOMITILA BAUM AGE: 76 SEX: M : 1945 ARRIVES VIA: Ambulance INFORMANT: Patient, ED PROVIDER(S): Miller Costello DO CHIEF COMPLAINT: Nausea HPI: The patient is a 76-year-old male who presented to the emergency department for an evaluation of nausea. The patient describes epigastric and upper abdominal "discomfort" but not pain. He states his symptoms appear to be associated with nausea. He did have 1 episode of diaphoresis. He denies having any specific chest pain. He did not take his temperature and does not think he has a fever. He denies having any headache or weakness. He states that the symptoms began yesterday into today. He did not feel well today so he called 911 to present to the emergency department for further evaluation. He did not take his morning medications today but states he has been compliant with his outpatient medications otherwise. He does have a history of an irregular heartbeat and takes blood thinners. He denies having any recent trauma or passing out. He states his symptoms are moderate at this time and still feels very nauseated. He denies having any dizziness or difficulty with his vision. ROS: See above HPI for pertinent positives & negatives. A total of 10 systems reviewed and were otherwise negative. PAST MEDICAL HISTORY: See Below PAST SURGICAL HISTORY: See Below FAMILY HISTORY: See Below SOCIAL HISTORY: See Below HOME MEDICATIONS: See Below ALLERGIES: See Below VITALS: See Below PHYSICAL EXAMINATION: GENERAL: The patient is awake and alert. The patient is comfortable appearing. EYES: The conjunctivae are clear. The pupils are round and reactive. EARS, NOSE, MOUTH AND THROAT: The nose is without any evidence of any deformity. NECK: The neck is nontender and supple. RESPIRATORY: Normal respiratory effort is noted there is no evidence of wheezing rhonchi or rales CARDIOVASCULAR: Regular rate and rhythm noted there no murmurs rubs or gallops normal S1 normal S2. GASTROINTESTINAL: The abdomen is distended. There is upper abdominal tenderness to palpation but no specific guarding or rigidity. MUSCULOSKELETAL/EXTREMITIES: There is no evidence of gross deformity full range of motion is noted in the hips and shoulders. SKIN: Chronic venous stasis changes are noted in both lower extremities. There is pedal edema bilaterally. Skin is warm and dry. NEUROLOGIC: Patient is awake alert and oriented x3. MEDICAL DECISION MAKING: The patient is a 76-year-old male who presented to the emergency department for an evaluation of nausea. The patient was treated with IV fluids in the emerg ency department. He was also treated with IV antibiotics for presumed urinary tract infection. I discussed patient's laboratory and radiographic studies with him. He was feeling somewhat improved on reevaluation. I reviewed the patient's urinary cultures does reveal that he has had multiple urinary tract infections with Pseudomonas. The most recent Pseudomonas antibiogram does appear to be only intermediate sensitivity to quinolones and the patient himself cannot take quinolones because of GI distress. He was treated with IV Zosyn in the emergency department. I discussed the patient's condition with the on-call [facility] hospitalist. They have agreed to evaluate the patient in the emergency department for further management and disposition. Triage Nursing notes reviewed. Prior medical records reviewed Vital Signs: reviewed and remarkable for elevated blood pressure. Differential diagnosis: Gastroenteritis, food borne illness, infections, appendicitis, diverticulitis, inflammatory bowel disease, obstruction, GI bleed, biliary pathology, volvulus, as well as other pathologies. ER treatment provided: See below Diagnostics interpreted by me: ECG: EKG was obtained in the emergency department. My interpretation is sinus rhythm at 74 bpm. There is no ectopy. Nonspecific inferior and lateral ST depressions were noted. This was compared to a tracing from July 27, 2015. No changes were noted Cardiac Monitoring: An order was placed for continuous cardiac monitoring. The monitor shows a rate of 76 bpm with sinus rhythm. Laboratory studies: As stated above and show below. Imaging studies: See below Consultation(s): I discussed this case with Dr. Saunders who is on-call for the [facility] hospitalist group. They will evaluate the patient in the emergency department. Past Med/Surg History Medical History Age-related nuclear cataract, right eye Anemia due to chronic kidney disease Chronic kidney disease, stage 4 (severe) Stage 3b chronic kidney disease Vitamin D deficiency Social History Smoking Status: Never smoker Hx Alcohol Use: No Hx Substance Use: No Preferred Language: Greek Communication Ability: Effective [employer] Supervisor Required: No Beliefs That Will Affect Care: None Current Living Situation: Alone Feels Safe at Home: Yes Assistive Devices: None Allergies Allergies Allergy/AdvReac Type Severity Reaction Status Date / Time ciprofloxacin [From Cipro] AdvReac Intermediate Upset Unverified 11/27/21 14:25 Stomach, Nausea, GI Discomfort Home Meds Home Medications Medication Instructions Recorded Confirmed apixaban 5 mg tablet 5 mg PO BID 04/25/21 11/27/21 cholecalciferol (vitamin D3) 25 25 mcg PO QAM 04/25/21 11/27/21 mcg (1,000 unit) capsule folic acid 1 mg tablet 1 mg PO QAM 04/25/21 11/27/21 levothyroxine 88 mcg capsule 88 mcg PO DAILYBB 04/25/21 11/27/21 metoprolol succinate 25 mg 12.5 mg PO BID 05/05/21 11/27/21 tablet,extended release 24 hr ferrous sulfate 325 mg (65 mg 325 mg PO QAM 06/30/21 11/27/21 iron) tablet (FeroSul) gabapentin 100 mg capsule 100 mg PO QID PRN Nerve Pain 06/30/21 11/27/21 trazodone 50 mg tablet 50 mg PO HS PRN Sleep 06/30/21 11/27/21 Previous Rx's Medication Instructions Recorded lisinopril 10 mg tablet 10 mg PO DAILY #90 tabs 08/25/21 Results & Data (ED) Vital Signs Vital Signs - 24 hr 11/27/21 10:25 11/27/21 10:30 11/27/21 10:31 Temperature 36.6 C Temperature Source Oral Pulse Rate 75 75 79 Pulse Rate [Apical] Pulse Rate from SpO2 Sensor 75 78 Respiratory Rate 18 19 27 H Respiratory Effort / Characteristics Respiratory Depth Blood Pressure 210/78 H Blood Pressure [Right Arm] Blood Pressure Mean 122 Blood Pressure Mean [Right Arm] Pulse Oximetry 93 96 99 Oxygen Delivery Method Room Air Room Air Room Air Sepsis Recent Fever Within 48 Hours No Sepsis New/Unexplained Change in Mental Status No Sepsis Action Taken by Nursing No Action Required 11/27/21 10:31 11/27/21 11:00 11/27/21 11:00 Temperature Temperature Source Pulse Rate 67 Pulse Rate [Apical] Pulse Rate from SpO2 Sensor 67 Respiratory Rate 19 Respiratory Effort / Characteristics Respiratory Depth Blood Pressure 181/80 H 177/78 H Blood Pressure [Right Arm] Blood Pressure Mean 113 111 Blood Pressure Mean [Right Arm] Pulse Oximetry 96 Oxygen Delivery Method Room Air Sepsis Recent Fever Within 48 Hours Sepsis New/Unexplained Change in Mental Status Sepsis Action Taken by Nursing 11/27/21 11:38 11/27/21 11:30 11/27/21 11:30 Temperature Temperature Source Pulse Rate 124 H Pulse Rate [Apical] Pulse Rate from SpO2 Sensor 123 H Respiratory Rate 17 Respiratory Effort / Characteristics Respiratory Depth Blood Pressure 151/92 H Blood Pressure [Right Arm] Blood Pressure Mean 111 Blood Pressure Mean [Right Arm] Pulse Oximetry 93 Oxygen Delivery Method Room Air Room Air Sepsis Recent Fever Within 48 Hours Sepsis New/Unexplained Change in Mental Status Sepsis Action Taken by Nursing 11/27/21 12:25 11/27/21 12:30 11/27/21 12:30 Temperature Temperature Source Pulse Rate 128 H Pulse Rate [Apical] 128 H Pulse Rate from SpO2 Sensor 128 H Respiratory Rate 20 15 Respiratory Effort / Characteristics Non-Labored Respiratory Depth Normal Blood Pressure 113/69 Blood Pressure [Right Arm] 149/98 H Blood Pressure Mean 83 Blood Pressure Mean [Right Arm] 115 Pulse Oximetry 98 93 Oxygen Delivery Method Room Air Room Air Sepsis Recent Fever Within 48 Hours Sepsis New/Unexplained Change in Mental Status Sepsis Action Taken by Nursing 11/27/21 13:00 11/27/21 13:30 11/27/21 13:30 Temperature Temperature Source Pulse Rate 134 H 130 H Pulse Rate [Apical] Pulse Rate from SpO2 Sensor 133 H 130 H Respiratory Rate 13 19 Respiratory Effort / Characteristics Respiratory Depth Blood Pressure 99/63 L Blood Pressure [Right Arm] Blood Pressure Mean 75 Blood Pressure Mean [Right Arm] Pulse Oximetry 96 97 Oxygen Delivery Method Room Air Room Air Sepsis Recent Fever Within 48 Hours Sepsis New/Unexplained Change in Mental Status Sepsis Action Taken by Nursing 11/27/21 14:00 11/27/21 14:00 11/27/21 14:30 Temperature Temperature Source Pulse Rate 129 H Pulse Rate [Apical] Pulse Rate from SpO2 Sensor 129 H 96 H Respiratory Rate 21 24 Respiratory Effort / Characteristics Respiratory Depth Blood Pressure 116/76 Blood Pressure [Right Arm] Blood Pressure Mean 89 Blood Pressure Mean [Right Arm] Pulse Oximetry 95 94 Oxygen Delivery Method Room Air Room Air Sepsis Recent Fever Within 48 Hours Sepsis New/Unexplained Change in Mental Status Sepsis Action Taken by Nursing 11/27/21 15:00 11/27/21 15:09 11/27/21 15:09 Temperature Temperature Source Pulse Rate 85 86 Pulse Rate [Apical] Pulse Rate from SpO2 Sensor 85 85 Respiratory Rate 21 18 Respiratory Effort / Characteristics Respiratory Depth Blood Pressure 135/83 Blood Pressure [Right Arm] Blood Pressure Mean 100 Blood Pressure Mean [Right Arm] Pulse Oximetry 96 98 Oxygen Delivery Method Room Air Room Air Sepsis Recent Fever Within 48 Hours Sepsis New/Unexplained Change in Mental Status Sepsis Action Taken by Nursing 11/27/21 15:30 11/27/21 15:30 11/27/21 16:00 Temperature Temperature Source Pulse Rate 80 76 Pulse Rate [Apical] Pulse Rate from SpO2 Sensor 80 Respiratory Rate 17 16 Respiratory Effort / Characteristics Respiratory Depth Blood Pressure 141/68 H 148/71 H Blood Pressure [Right Arm] Blood Pressure Mean 92 Blood Pressure Mean [Right Arm] Pulse Oximetry 95 97 Oxygen Delivery Method Room Air Room Air Sepsis Recent Fever Within 48 Hours Sepsis New/Unexplained Change in Mental Status Sepsis Action Taken by Longterm Medications Current Medication List: was personally reviewed by me Laboratory Data Attestation: I reviewed the patient's lab results. Result diagrams: 11/27/21 10:25 11/27/21 10:25 Lab Results 11/27/21 11/27/21 11/27/21 Range/Units 10:17 10:17 10:25 WBC 9.17 (4.8-10.8) K/ul RBC 4.32 L (4.63-6.08) M/uL Hgb 12.8 L (14.0-18.0) g/dl Hct 40.8 (40.1-51.0) % MCV 94.4 (80.0-100.0) fL MCH 29.6 (25.0-34.0) pg MCHC 31.4 L (32.0-36.0) g/dL RDW Std Deviation 52.7 H (36.4-46.3) fL RDW Coeff of Yolanda 15.0 H (11.5-14.5) % Plt Count 288 (130-400) K/uL MPV 11.0 (9.4-12.4) fL Immature Gran % (Auto) 0.4 % Neut % (Auto) 77.2 % Lymph % (Auto) 14.8 % [place] % (Auto) 6.0 % Eos % (Auto) 1.2 % Baso % (Auto) 0.4 % Neut # (Auto) 7.07 H (1.4-6.5) K/uL Lymph # (Auto) 1.36 (1.2-3.4) K/uL [place] # (Auto) 0.55 (0.24-0.82) K/uL Eos # (Auto) 0.11 (0-0.50) K/uL Baso # (Auto) 0.04 (0-0.2) K/uL Immature Gran # (Auto) 0.04 H (0.00-0.02) K/uL Sodium (136-145) mmol/L Potassium (3.5-5.1) mmol/L Chloride (98-107) mmol/L Carbon Dioxide (21-32) mmol/L Anion Gap (3-11) BUN (6-23) mg/dl Creatinine (0.6-1.4) mg/dl Est Cr Clr Drug Dosing ml/min Est GFR ( Amer) ml/min Est GFR (Non-Af Amer) ml/min BUN/Creatinine Ratio (10-20) Glucose (70-99(Fasting)) mg/dl POC Glucose (70-99) mg/dl Calcium (8.5-10.1) mg/dl Magnesium (1.7-2.4) mg/dl Total Bilirubin (0.2-1.0) mg/dl AST (13-39) U/L ALT (7-52) U/L Alkaline Phosphatase (34-104) U/L Troponin I High Sens (0-20) pg/ml Total Protein (6.0-8.3) gm/dl Albumin (3.4-5.0) gm/dl Globulin (2.5-4.0) gm/dl Albumin/Globulin Ratio (0.9-2) Lipase (11-82) U/L Urine Color Yellow Urine Appearance Cloudy A (Clear) Urine pH 6.0 (4.5-7.5) Ur Specific [place] 1.018 (1.000-1.030) Urine Protein 1+ H (Negative) Urine Glucose (UA) 3+ H (Negative) Urine Ketones Negative (Negative) Urine Blood 1+ H (Negative) Urine Nitrite Positive A (Negative) Urine Bilirubin Negative (Negative) Urine Urobilinogen Negative (Negative) Ur Leukocyte Esterase 2+ H (Negative) Urine WBC (Auto) >30 H (0-5) /hpf Urine RBC (Auto) 0-4 (0-4) /hpf U Hyaline Cast (Auto) 1-5 (0-5) /lpf U Epithel Cells (Auto) 10-20 H (0-5) /lpf Urine Bacteria (Auto) 3+ H (Negative) Stl C. cayetanensis PCR Not Detected (NotDetected) Stool Rotavirus A PCR Not Detected (NotDetected) Stl Adenov F 40/41 PCR Not Detected (NotDetected) Stool Astrovirus (PCR) Not Detected (NotDetected) Stool Campylobacter PCR Not Detected (NotDetected) Stl C. diff Tox A/B PCR Not Detected (NotDetected) Stool Cryptosporidium PCR Not Detected (NotDetected) Stl E.coli Shiga Tox PCR Not Detected (NotDetected) Stl Enterotoxigenic E PCR Not Detected (NotDetected) Stool EPEC (PCR) DETECTED A* (NotDetected) Stool EAEC (PCR) Not Detected (NotDetected) Stl E. histolytica PCR Not Detected (NotDetected) Stool Giardia Lamblia PCR Not Detected (NotDetected) Stool Salmonella PCR Not Detected (NotDetected) Stool Sapovirus (PCR) Not Detected (NotDetected) Stl P. shigelloides PCR Not Detected (NotDetected) Stl Shigella/EIEC PCR Not Detected (NotDetected) St Y.enterocolitica PCR Not Detected (NotDetected) Stool Vibrio (PCR) Not Detected (NotDetected) Stl Vibrio cholerae PCR Not Detected (NotDetected) Stl Norovirus GI/GII PCR Not Detected (NotDetected) SARS-CoV-2 (PCR) (Negative) 11/27/21 11/27/21 11/27/21 Range/Units 10:25 11:35 13:20 WBC (4.8-10.8) K/ul RBC (4.63-6.08) M/uL Hgb (14.0-18.0) g/dl Hct (40.1-51.0) % MCV (80.0-100.0) fL MCH (25.0-34.0) pg MCHC (32.0-36.0) g/dL RDW Std Deviation (36.4-46.3) fL RDW Coeff of Yolanda (11.5-14.5) % Plt Count (130-400) K/uL MPV (9.4-12.4) fL Immature Gran % (Auto) % Neut % (Auto) % Lymph % (Auto) % [place] % (Auto) % Eos % (Auto) % Baso % (Auto) % Neut # (Auto) (1.4-6.5) K/uL Lymph # (Auto) (1.2-3.4) K/uL [place] # (Auto) (0.24-0.82) K/uL Eos # (Auto) (0-0.50) K/uL Baso # (Auto) (0-0.2) K/uL Immature Gran # (Auto) (0.00-0.02) K/uL Sodium 136 (136-145) mmol/L Potassium 4.1 (3.5-5.1) mmol/L Chloride 103 (98-107) mmol/L Carbon Dioxide 24 (21-32) mmol/L Anion Gap 9 (3-11) BUN 26 H (6-23) mg/dl Creatinine 2.32 H (0.6-1.4) mg/dl Est Cr Clr Drug Dosing 37.8 ml/min Est GFR ( Amer) 30.5 ml/min Est GFR (Non-Af Amer) 26.3 ml/min BUN/Creatinine Ratio 11.2 (10-20) Glucose 338 H* (70-99(Fasting)) mg/dl POC Glucose 336 H* (70-99) mg/dl Calcium 9.4 (8.5-10.1) mg/dl Magnesium 1.9 (1.7-2.4) mg/dl Total Bilirubin 0.7 (0.2-1.0) mg/dl AST 11 L (13-39) U/L ALT 12 (7-52) U/L Alkaline Phosphatase 66 (34-104) U/L Troponin I High Sens 17.4 (0-20) pg/ml Total Protein 7.4 (6.0-8.3) gm/dl Albumin 3.5 (3.4-5.0) gm/dl Globulin 3.9 (2.5-4.0) gm/dl Albumin/Globulin Ratio 0.9 (0.9-2) Lipase 20 (11-82) U/L Urine Color Urine Appearance (Clear) Urine pH (4.5-7.5) Ur Specific [place] (1.000-1.030) Urine Protein (Negative) Urine Glucose (UA) (Negative) Urine Ketones (Negative) Urine Blood (Negative) Urine Nitrite (Negative) Urine Bilirubin (Negative) Urine Urobilinogen (Negative) Ur Leukocyte Esterase (Negative) Urine WBC (Auto) (0-5) /hpf Urine RBC (Auto) (0-4) /hpf U Hyaline Cast (Auto) (0-5) /lpf U Epithel Cells (Auto) (0-5) /lpf Urine Bacteria (Auto) (Negative) Stl C. cayetanensis PCR (NotDetected) Stool Rotavirus A PCR (NotDetected) Stl Adenov F / PCR (NotDetected) Stool Astrovirus (PCR) (NotDetected) Stool Campylobacter PCR (NotDetected) Stl C. diff Tox A/B PCR (NotDetected) Stool Cryptosporidium PCR (NotDetected) Stl E.coli Shiga Tox PCR (NotDetected) Stl Enterotoxigenic E PCR (NotDetected) Stool EPEC (PCR) (NotDetected) Stool EAEC (PCR) (NotDetected) Stl E. histolytica PCR (NotDetected) Stool Giardia Lamblia PCR (NotDetected) Stool Salmonella PCR (NotDetected) Stool Sapovirus (PCR) (NotDetected) Stl P. shigelloides PCR (NotDetected) Stl Shigella/EIEC PCR (NotDetected) St Y.enterocolitica PCR (NotDetected) Stool Vibrio (PCR) (NotDetected) Stl Vibrio cholerae PCR (NotDetected) Stl Norovirus GI/GII PCR (NotDetected) SARS-CoV-2 (PCR) NEGATIVE (Negative) 11/27/21 Range/Units 13:21 WBC (4.8-10.8) K/ul RBC (4.63-6.08) M/uL Hgb (14.0-18.0) g/dl Hct (40.1-51.0) % MCV (80.0-100.0) fL MCH (25.0-34.0) pg MCHC (32.0-36.0) g/dL RDW Std Deviation (36.4-46.3) fL RDW Coeff of Yolanda (11.5-14.5) % Plt Count (130-400) K/uL MPV (9.4-12.4) fL Immature Gran % (Auto) % Neut % (Auto) % Lymph % (Auto) % [place] % (Auto) % Eos % (Auto) % Baso % (Auto) % Neut # (Auto) (1.4-6.5) K/uL Lymph # (Auto) (1.2-3.4) K/uL [place] # (Auto) (0.24-0.82) K/uL Eos # (Auto) (0-0.50) K/uL Baso # (Auto) (0-0.2) K/uL Immature Gran # (Auto) (0.00-0.02) K/uL Sodium (136-145) mmol/L Potassium (3.5-5.1) mmol/L Chloride (98-107) mmol/L Carbon Dioxide (21-32) mmol/L Anion Gap (3-11) BUN (6-23) mg/dl Creatinine (0.6-1.4) mg/dl Est Cr Clr Drug Dosing ml/min Est GFR ( Amer) ml/min Est GFR (Non-Af Amer) ml/min BUN/Creatinine Ratio (10-20) Glucose (70-99(Fasting)) mg/dl POC Glucose 298 H (70-99) mg/dl Calcium (8.5-10.1) mg/dl Magnesium (1.7-2.4) mg/dl Total Bilirubin (0.2-1.0) mg/dl AST (13-39) U/L ALT (7-52) U/L Alkaline Phosphatase (34-104) U/L Troponin I High Sens (0-20) pg/ml Total Protein (6.0-8.3) gm/dl Albumin (3.4-5.0) gm/dl Globulin (2.5-4.0) gm/dl Albumin/Globulin Ratio (0.9-2) Lipase (11-82) U/L Urine Color Urine Appearance (Clear) Urine pH (4.5-7.5) Ur Specific [place] (1.000-1.030) Urine Protein (Negative) Urine Glucose (UA) (Negative) Urine Ketones (Negative) Urine Blood (Negative) Urine Nitrite (Negative) Urine Bilirubin (Negative) Urine Urobilinogen (Negative) Ur Leukocyte Esterase (Negative) Urine WBC (Auto) (0-5) /hpf Urine RBC (Auto) (0-4) /hpf U Hyaline Cast (Auto) (0-5) /lpf U Epithel Cells (Auto) (0-5) /lpf Urine Bacteria (Auto) (Negative) Stl C. cayetanensis PCR (NotDetected) Stool Rotavirus A PCR (NotDetected) Stl Adenov F 40/41 PCR (NotDetected) Stool Astrovirus (PCR) (NotDetected) Stool Campylobacter PCR (NotDetected) Stl C. diff Tox A/B PCR (NotDetected) Stool Cryptosporidium PCR (NotDetected) Stl E.coli Shiga Tox PCR (NotDetected) Stl Enterotoxigenic E PCR (NotDetected) Stool EPEC (PCR) (NotDetected) Stool EAEC (PCR) (NotDetected) Stl E. histolytica PCR (NotDetected) Stool Giardia Lamblia PCR (NotDetected) Stool Salmonella PCR (NotDetected) Stool Sapovirus (PCR) (NotDetected) Stl P. shigelloides PCR (NotDetected) Stl Shigella/EIEC PCR (NotDetected) St Y.enterocolitica PCR (NotDetected) Stool Vibrio (PCR) (NotDetected) Stl Vibrio cholerae PCR (NotDetected) Stl Norovirus GI/GII PCR (NotDetected) SARS-CoV-2 (PCR) (Negative) Administered Medications Discontinued Medications Sodium Chloride (Nss) 500 mls @ 999 mls/hr IV .Q31M STA Stop: 11/27/21 11:20 Last Infusion: 11/27/21 12:09 Dose: 0 mls/hr Documented By: Admin: 11/27/21 11:23 Dose: 999 mls/hr Documented By: ANASTACIA Sodium Chloride (Nss) 500 mls @ 999 mls/hr IV .Q31M ONE Stop: 11/27/21 12:28 Last Infusion: 11/27/21 12:50 Dose: 0 mls/hr Documented By: Admin: 11/27/21 12:19 Dose: 999 mls/hr Documented By: PADMINI Piperacillin Sod/Tazobactam Sod (Zosyn) 4.5 gm in 120 mls @ 240 mls/hr IV NOW ONE Stop: 11/27/21 14:35 Last Infusion: 11/27/21 15:37 Dose: 0 mls/hr Documented By: Infusion: 11/27/21 15:08 Dose: 240 mls/hr Documented By: Infusion: 11/27/21 14:18 Dose: 0 mls/hr Documented By: Admin: 11/27/21 14:16 Dose: 240 mls/hr Documented By: ANASTACIA Insulin Human Regular (Novolin-R Insulin Per Unit Charge) 5 units IV NOW STA Stop: 11/27/21 11:59 Last Admin: 11/27/21 12:19 Dose: 5 units Documented By: PADMINI Co-signed By: HANNAH Metoprolol Succinate (Metoprolol Succ 25mg Ext Rel Tab) 12.5 mg PO ONE STA Stop: 11/27/21 14:57 Last Admin: 11/27/21 15:21 Dose: 12.5 mg Documented By: ANASTACIA Ondansetron HCl (Ondansetron Inj 2 Mg/Ml 2 Ml Vial) 4 mg IV NOW STA Stop: 11/27/21 10:51 Last Admin: 11/27/21 11:24 Dose: 4 mg Documented By: ANASTACIA Imaging Data Radiologist's Impression: Abdomen/Pelvis CT 11/27/21 10:[address] WITHOUT CONTRAST CT DOSE: 1129.23 mGycm HISTORY: Lower abdominal pain. Nausea. Vomiting. TECHNIQUE: Multiaxial CT images of the abdomen and pelvis were performed without contrast. A dose lowering technique was utilized adhering to the principles of ALARA. COMPARISON STUDY: Abdomen and pelvis CT 07/28/2021. FINDINGS: The right lung base is clear. Chronic left pleural thickening and round atelectasis within the left lung base remains unchanged. No p neumoperitoneum. No pneumatosis. No fractures within the visualized osseous structures. Small fat-containing left inguinal hernia. No pelvic free fluid. The prostate gland is normal in size. No bladder wall thickening. A few small bladder diverticula are noted. The unenhanced liver, spleen, adrenal glands, and pancreas unremarkable. No gallbladder wall thickening. Multiple gallstones and gallbladder sludge again noted. No definite left renal calculi. There is a punctate calcification within the upper pole the right kidney which appears to be cortical. No ureteral stones. No hydronephrosis. Moderate bilateral cortical renal scarring/thinning. A few subcentimeter hypodense lesions within the k idneys are essentially too small to characterize. Normal caliber abdominal aorta. No retroperitoneal lymphadenopathy. Suboptimal evaluation for bowel pathology due to the lack of intravenous and oral contrast. However, there is no definite bowel wall thickening or obstruction. Fluid within the nondistended colon. The appendix is reportedly surgically absent. IMPRESSION: 1. No bowel wall thickening or obstruction. 2. Fluid within the nondistended colon. This could represent a gastroenteritis/diarrheal illness. 3. Cholelithiasis and gallbladder sludge. 4. Additional stable findings as described above. ACT 112: Negative or not required by law. Electronically signed by: Davy Brooke M.D. 11/27/2021 11:50 AM Chest X-Ray 11/27/21 10:50 XR chest 1V portable HISTORY: Vomiting. COMPARISON: Chest 07/29/2021. FINDINGS: No pneumothorax. No pleural effusions. The heart remains mildly enlarged. Chronic scarlike densities again noted within the left mid to lower lung zone. The right lung is clear. No evidence for pulmonary edema. There are calcifications within the aortic knob. IMPRESSION: No significant change compared to the prior study. No acute process. ACT 112: Negative or not required by law. Electronically signed by: Davy Brooke M.D. 11/27/2021 11:51 AM Discharge Plan Visit Data Chief Complaint: GI Assessment Stated Complaint: NAUSEA, DIARRHEA, WEAKNESS ED Provider: Miller Costello Discharge Problem: Urinary tract infection, Acute hyperglycemia, Nausea & vomiting Patient Disposition: Being Evaluated by Hospitalist Discharge Instructions Interventions: ED Discharge Assessment Last Done: 11/27/21 16:00 Forms Stand Alone Forms: [facility] Prescriptions Prescriptions: No Action apixaban 5 mg tablet 5 mg PO BID cholecalciferol (vitamin D3) 25 mcg (1,000 unit) capsule 25 mcg PO QAM folic acid 1 mg tablet 1 mg PO QAM levothyroxine 88 mcg capsule 88 mcg PO DAILYBB metoprolol succinate 25 mg tablet extended release 24 hr 12.5 mg PO BID lisinopril 10 mg tablet 10 mg PO DAILY Qty: 90 3RF trazodone 50 mg tablet 50 mg PO HS PRN (Reason: Sleep) ferrous sulfate [FeroSul] 325 mg (65 mg iron) tablet 325 mg PO QAM gabapentin 100 mg capsule 100 mg PO QID PRN (Reason: Nerve Pain) Referrals Referrals: Mann Bright, [employer] [Primary Care Provider] -
[2021-11-27 11:33] LABS: Albumin Globulin Ratio 0.9 (0.9-2); Albumin Level 3.5 gm/dl (3.4-5.0); BUN Creatinine Ratio 11.2 (10-20); Bilirubin,Total 0.7 mg/dl (0.2-1.0); Calcium 9.4 mg/dl (8.5-10.1); Creatinine Clr Calc Pharmacy 37.8 ml/min; Est GFR (African American) 30.5 ml/min; Est GFR (Non-African American) 26.3 ml/min; Globulin 3.9 gm/dl (2.5-4.0); Magnesium 1.9 mg/dl (1.7-2.4); Potassium 4.1 mmol/L (3.5-5.1); Total Protein 7.4 gm/dl (6.0-8.3); Troponin I High Sensitivity 17.4 pg/ml (0-20)
--- NOTE | 2021-11-27 11:51 | CT Scan Report ---
ABDOMEN AND PELVIS CT WITHOUT CONTRAST CT DOSE: 1129.23 mGycm HISTORY: Lower abdominal pain. Nausea. Vomiting. TECHNIQUE: Multiaxial CT images of the abdomen and pelvis were performed without contrast. A dose lo wering technique was utilized adhering to the principles of ALARA. COMPARISON STUDY: Abdomen and pelvis CT 07/28/2021. FINDINGS: The right lung base is clear. Chronic left pleural thickening and round atelectasis within the left lung base remains unchanged. No pneumoperitoneum. No pneumatosis. No fractures within the vi sualized osseous structures. Small fat-containing left inguinal hernia. No pelvic free fluid. The pro state gland is normal in size. No bladder wall thickening. A few small bladder diverticula are noted. The unenhanced liver, spleen, adrenal glands, and pancreas unremarkable. No gallbladder wall thicken ing. Multiple gallstones and gallbladder sludge again noted. No definite left renal calculi. There is a punctate calcification within the upper pole the right kidney which appears to be cortical. No ure teral stones. No hydronephrosis. Moderate bilateral cortical renal scarring/thinning. A few subcentim eter hypodense lesions within the kidneys are essentially too small to characterize. Normal caliber a bdominal aorta. No retroperitoneal lymphadenopathy. Suboptimal evaluation for bowel pathology due to the lack of intravenous and oral contrast. However, there is no definite bowel wall thickening or obs truction. Fluid within the nondistended colon. The appendix is reportedly surgically absent. IMPRESSION: 1. No bowel wall thickening or obstruction. 2. Fluid within the nondistended colon. This could represent a gastroenteritis/diarrheal illness. 3. Cholelithiasis and gallbladder sludge. 4. Additional stable findings as described above. ACT 112: Negative or not required by law. Electronically signed by: Davy Brooke M.D. 11/27/2021 11:50 AM
--- NOTE | 2021-11-27 11:52 | XRay Report ---
XR chest 1V portable HISTORY: Vomiting. COMPARISON: Chest 07/29/2021. FINDINGS: No pneumothorax. No pleural effusions. The heart remains mildly enlarged. Chronic scarlike densities again noted within the left mid to lower lung zone. The right lung is clear. No evidence fo r pulmonary edema. There are calcifications within the aortic knob. IMPRESSION: No significant change compared to the prior study. No acute process. ACT 112: Negative or not required by law. Electronically signed by: Davy Brooke M.D. 11/27/2021 11:51 AM
[2021-11-27] MEDS ORDERED: SODIUM CHLORIDE 0.9% 500 ML IV ONE (11:58)
[2021-11-27] MEDS ORDERED: NovoLIN-R INSULIN PER UNIT CHARGE IV STA (11:58)
[2021-11-27 12:10] LABS: Appearance Urine Cloudy (Clear); Bacteria Urine Automated 3+ (Negative); Bilirubin Urine Negative (Negative); Blood Urine 1+ (Negative); Color Urine Yellow; Glucose Urine UA 3+ (Negative); Ketones Urine Negative (Negative); Leukocyte Esterase Urine 2+ (Negative); Nitrite Urine Positive (Negative); Protein Urine 1+ (Negative); RBC Urine Automated 0-4 /hpf (0-4); Specific Gravity Urine 1.018 (1.000-1.030); Urobilinogen Urine Negative (Negative); WBC Urine Automated >30 /hpf (0-5)
[2021-11-27] MEDS ORDERED: PIPERACILLIN/TAZOBACTAM 4.5 GM/120 ML BAG IV ONE (14:06)
--- NOTE | 2021-11-27 14:30 | History & Physical Report ---
Date of Service November 27, 2021 Assessment & Plan (1) Urinary tract infection: Plan: Given prior pseudomonas resistant to ciprofloxacin an prior adverse effect will continue with Zosyn pending urine and blood cultures (2) Diarrhea: Plan: Stool PCR pending (3) Paroxysmal atrial fibrillation: Plan: Presumed atrial flutter with rapid ventricular rates in the emergency room with rates 150 bpm although no EKG was taken at this time. Give his usual metoprolol succinate 12.5 mg p.o. now and metoprolol tartrate 5 mg IV as needed for heart rates greater than 130 bpm Patient will be monitored on telemetry (4) Chronic kidney disease, stage 4 (severe): Plan: At baseline. Continue to monitor daily. (5) Acute hyperglycemia: Plan: Previous HbA1c 7.5 suggesting he has diabetes. Was to consider metformin on prior discharge however does not appear to be on any diabetes medications at present time. Will repeat HbA1c with a.m. labs Lantus 10 units twice daily NovoLog: --Goal BSG Range: Low 110 mg/dL, High 140 mg/dL --Correction Factor: 45 mg/dL/unit --Carbohydrate ratio = 15 g/unit --BSGs ACHS if eating, q6h if npo (6) Essential hypertension: Plan: Continue his usual lisinopril 10 mg p.o. daily and metoprolol succinate 12.5 p.o. twice daily (7) Hypothyroidism: Plan: Continue levothyroxine 88 mcg p.o. daily TSH elevated in June we will repeat with a.m. labs Plan VTE Prophylaxis - Apixaban Diet - T2DM Disposition - admit to med/tele (expected stay two midnights or longer) Admission and Anticipated Discharge Date Admission Date: November 27, 2021 History of Present Illness Chief Complaint: Nausea, vomiting, diarrhea Primary Care Provider: Mann Bright, [employer] SAL[employer] Rafael Santos is a 76 year old male who presents to the ER with nausea, vomiting and diarrhea. He reports symptoms started yesterday with an upset stomach, weak will and felt like being hit by a truck. As the day went on he started to feel better but with reduced appetite and only able to manage a noodle soup and crackers last night. He woke up this morning feeling around about the same. He did not take any of his medications. No headache, cough, chest pain, abdominal pain, sinus pain and nasal congestion at baseline. While in the emergency room he developed a narrow complex regular tachycardia with rate 150 bpm from approximately 11:30am to 2pm prior to being seen by myself with no treatment given. He spontaneously converted back to a normal sinus rhythm which he is currently in when seen. He was asymptomatic during this time and specifically denies any palpitations, chest pain or shortness of breath. He has known paroxysmal atrial fibrillation with rapid ventricular rate. In the ER urinalysis was grossly positive for infection. He has previously grown Pseudomonas resistant to ciprofloxacin therefore he was given a dose of intravenous Zosyn and referred to medicine for admission ongoing management of UTI. Allergies Allergy/AdvReac Type Severity Reaction Status Date / Time ciprofloxacin [From Cipro] AdvReac Intermediate Upset Unverified 11/27/21 14:25 Stomach, Nausea, GI Discomfort Home Medications Medication Instructions Recorded Confirmed Type apixaban 5 mg tablet 5 mg PO BID 04/25/21 11/27/21 History cholecalciferol (vitamin D3) 25 25 mcg PO QAM 04/25/21 11/27/21 History mcg (1,000 unit) capsule folic acid 1 mg tablet 1 mg PO QAM 04/25/21 11/27/21 History levothyroxine 88 mcg capsule 88 mcg PO DAILYBB 04/25/21 11/27/21 History metoprolol succinate 25 mg 12.5 mg PO BID 05/05/21 11/27/21 History tablet,extended release 24 hr ferrous sulfate 325 mg (65 mg 325 mg PO QAM 06/30/21 11/27/21 History iron) tablet (FeroSul) gabapentin 100 mg capsule 100 mg PO QID PRN Nerve Pain 06/30/21 11/27/21 History trazodone 50 mg tablet 50 mg PO HS PRN Sleep 06/30/21 11/27/21 History lisinopril 10 mg tablet 10 mg PO DAILY #90 tabs 08/25/21 11/27/21 Rx Past Med/Surg History Medical History Age-related nuclear cataract, right eye Anemia due to chronic kidney disease Chronic kidney disease, stage 4 (severe) Stage 3b chronic kidney disease Vitamin D deficiency Social History Smoking Status: Never smoker Hx Alcohol Use: No Hx Substance Use: No Preferred Language: Urdu Communication Ability: Effective Machine Burrer Required: No Beliefs That Will Affect Care: None Current Living Situation: Alone Feels Safe at Home: Yes Assistive Devices: None Review of Systems Review of Systems: All systems reviewed & are unremarkable except as noted in HPI & below Physical Exam Constitutional: WD/WN, vitals as above Eyes: + anicteric sclerae; normal pupil size ENMT: external ear and nose normal, oropharynx normal Neck: trachea midline, no thyromegaly Respiratory: normal respiratory effort, lungs clear to auscultation Cardiovascular: Rate/Rhythm: regular rate and regular rhythm Heart Sounds: no murmur Extremities: normal capillary refill and + pedal edema (1+ bilateral pitting); no calf tenderness Gastrointestinal (Abdomen): Inspection/Auscultation: abdomen normal to inspection and + hyperactive bowel sounds; abdomen not distended Percussion/Palpation: abdomen soft; abdomen nontender, no guarding and abdomen not rigid Musculoskeletal: no cyanosis or clubbing, extremities motor strength 5/5 Skin: no rashes, warm and dry (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) Neurologic: moves all extremities and awake; not confused Psychiatric: A+Ox3, euthymic affect Results & Data Results & Data ([facility]) Vital Signs (Past 12 Hours) Vital Signs Temp Pulse Pulse Resp BP BP Pulse Ox 11/27/21 14:00 129 H 21 95 11/27/21 14:00 116/76 11/27/21 13:30 130 H 19 97 11/27/21 13:30 99/63 L 11/27/21 13:00 134 H 13 96 11/27/21 12:30 128 H 15 93 11/27/21 12:30 113/69 11/27/21 12:25 128 H 20 149/98 H 98 11/27/21 11:30 124 H 17 93 11/27/21 11:30 151/92 H 11/27/21 11:38 11/27/21 11:00 67 19 96 11/27/21 11:00 177/78 H 11/27/21 10:31 181/80 H 11/27/21 10:31 79 27 H 99 11/27/21 10:30 75 19 96 11/27/21 10:25 36.6 C 75 18 210/78 H 93 O2 Del Method 11/27/21 14:00 Room Air 11/27/21 14:00 11/27/21 13:30 Room Air 11/27/21 13:30 11/27/21 13:00 Room Air 11/27/21 12:30 Room Air 11/27/21 12:30 11/27/21 12:25 Room Air 11/27/21 11:30 Room Air 11/27/21 11:30 11/27/21 11:38 Room Air 11/27/21 11:00 Room Air 11/27/21 11:00 11/27/21 10:31 11/27/21 10:31 Room Air 11/27/21 10:30 Room Air 11/27/21 10:25 Room Air Laboratory Results Abnormal lab results 11/27/21 11/27/21 11/27/21 Range/Units 10:17 10:25 10:25 RBC 4.32 L (4.63-6.08) M/uL Hgb 12.8 L (14.0-18.0) g/dl MCHC 31.4 L (32.0-36.0) g/dL RDW Std Deviation 52.7 H (36.4-46.3) fL RDW Coeff of Yolanda 15.0 H (11.5-14.5) % Neut # (Auto) 7.07 H (1.4-6.5) K/uL Immature Gran # (Auto) 0.04 H (0.00-0.02) K/uL BUN 26 H (6-23) mg/dl Creatinine 2.32 H (0.6-1.4) mg/dl Glucose 338 H* (70-99(Fasting)) mg/dl POC Glucose (70-99) mg/dl AST 11 L (13-39) U/L Urine Appearance Cloudy A (Clear) Urine Protein 1+ H (Negative) Urine Glucose (UA) 3+ H (Negative) Urine Blood 1+ H (Negative) Urine Nitrite Positive A (Negative) Ur Leukocyte Esterase 2+ H (Negative) Urine WBC (Auto) >30 H (0-5) /hpf U Epithel Cells (Auto) 10-20 H (0-5) /lpf Urine Bacteria (Auto) 3+ H (Negative) 11/27/21 11/27/21 Range/Units 13:20 13:21 RBC (4.63-6.08) M/uL Hgb (14.0-18.0) g/dl MCHC (32.0-36.0) g/dL RDW Std Deviation (36.4-46.3) fL RDW Coeff of Yolanda (11.5-14.5) % Neut # (Auto) (1.4-6.5) K/uL Immature Gran # (Auto) (0.00-0.02) K/uL BUN (6-23) mg/dl Creatinine (0.6-1.4) mg/dl Glucose (70-99(Fasting)) mg/dl POC Glucose 336 H* 298 H (70-99) mg/dl AST (13-39) U/L Urine Appearance (Clear) Urine Protein (Negative) Urine Glucose (UA) (Negative) Urine Blood (Negative) Urine Nitrite (Negative) Ur Leukocyte Esterase (Negative) Urine WBC (Auto) (0-5) /hpf U Epithel Cells (Auto) (0-5) /lpf Urine Bacteria (Auto) (Negative) Diagnostic Findings XR chest 1V portable HISTORY: Vomiting. COMPARISON: Chest 07/29/2021. FINDINGS: No pneumothorax. No pleural effusions. The heart remains mildly enlarged. Chronic scarlike densities again noted within the left mid to lower lung zone. The right lung is clear. No evidence for pulmonary edema. There are calcifications within the aortic knob. IMPRESSION: No significant change compared to the prior study. No acute process. ABDOMEN AND PELVIS CT WITHOUT CONTRAST CT DOSE: 1129.23 mGycm HISTORY: Lower abdominal pain. Nausea. Vomiting. TECHNIQUE: Multiaxial CT images of the abdomen and pelvis were performed without contrast. A dose lowering technique was utilized adhering to the principles of ALARA. COMPARISON STUDY: Abdomen and pelvis CT 07/28/2021. FINDINGS: The right lung base is clear. Chronic left pleural thickening and round atelectasis within the left lung base remains unchanged. No pneumoperitoneum. No pneumatosis. No fractures within the visualized osseous structures. Small fat-containing left inguinal hernia. No pelvic free fluid. The prostate gland is normal in size. No bladder wall thickening. A few small bladder diverticula are noted. The unenhanced liver, spleen, adrenal glands, and pancreas unremarkable. No gallbladder wall thickening. Multiple gallstones and gallbladder sludge again noted. No definite left renal calculi. There is a punctate calcification within the upper pole the right kidney which appears to be cortical. No ureteral stones. No hydronephrosis. Moderate bilateral cortical renal scarring/thinning. A few subcentimeter hypodense lesions within the kidneys are essentially too small to characterize. Normal caliber abdominal aorta. No retroperitoneal lymphadenopathy. Suboptimal evaluation for bowel pathology due to the lack of intravenous and oral contrast. However, there is no definite bowel wall thickening or obstruction. Fluid within the nondistended colon. The appendix is reportedly surgically absent. IMPRESSION: 1. No bowel wall thickening or obstruction. 2. Fluid within the nondistended colon. This could represent a gastroenteritis/diarrheal illness. 3. Cholelithiasis and gallbladder sludge. 4. Additional stable findings as described above. Medications Administered ER medications given: NSS 500 mL bolus x2 Ondansetron 4 mg IV Insulin regular 5 units IV Zosyn 4.5 g IV ECG Indication: nausea Rate (beats per minute): 72 Rhythm: normal sinus Findings: + 1st degree AV block Comparison ECG Date: from (June 30, 2021) Change: no significant change Code Status & VTE Plan Code Status Full VTE Prophylaxis Plan VTE Prophylaxis will be ordered: Yes PG Care Time/CCT Total # of Minutes Spent Total Time Spent with Patient: Total time spent is greater than 50% in coordination of care (as documented) at patient's floor/unit and/or counseling patient: Coding Level of Care Code 77276 Initial Inpt Care Lvl 3 Diagnoses Urinary tract infection N39.0 Hematuria presence: without hematuria Urinary tract infection type: site unspecified Diarrhea R19.7 Paroxysmal atrial fibrillation I48.0 Chronic kidney disease, stage 4 (severe) N18.4 Acute hyperglycemia R73.9 Essential hypertension I10 Hypothyroidism E03.9 (1) Urinary tract infection Hematuria presence: without hematuria Urinary tract infection type: site unspecified Qualified Code(s): N39.0 - Urinary tract infection, site not specified
[2021-11-27] MEDS ORDERED: METOPROLOL SUCC 25MG EXT REL TAB PO STA (14:56)
[2021-11-27 16:00] LABS: Adenovirus F 40/41 PCR Not Detected (NotDetected); Astrovirus PCR Not Detected (NotDetected); Campylobacter PCR Not Detected (NotDetected); Clostridium diff Toxin A/B PCR Not Detected (NotDetected); Cryptosporidium PCR Not Detected (NotDetected); Cyclospora cayetanensis PCR Not Detected (NotDetected); Entamoeba histolytica PCR Not Detected (NotDetected); Enteroaggregative E.coli(EAEC) Not Detected (NotDetected); Enterotoxigenic E.coli (ETEC) Not Detected (NotDetected); Giardia lamblia PCR Not Detected (NotDetected); Norovirus GI/GII PCR Not Detected (NotDetected); Plesiomonas shigelloides PCR Not Detected (NotDetected); Rotavirus A PCR Not Detected (NotDetected); Salmonella PCR Not Detected (NotDetected); Sapovirus PCR Not Detected (NotDetected); Shiga-like Toxin E.coli (STEC) Not Detected (NotDetected); Shigella/Enteroinvasive E.coli Not Detected (NotDetected); Vibrio cholerae PCR Not Detected (NotDetected); Vibrio species PCR Not Detected (NotDetected); Yersinia enterocolitica PCR Not Detected (NotDetected)
[2021-11-27 16:08] LABS: Enteropathogenic E.coli (EPEC) DETECTED (NotDetected)
[2021-11-27] MEDS ORDERED: CARBOHYDRATES FOR HYPOGLYCEMIA PO PRN (16:46)
[2021-11-27] MEDS ORDERED: METOPROLOL TARTRATE 1 MG/ML VIAL IV PRN (16:46)
[2021-11-27] MEDS ORDERED: GABAPENTIN 100 MG CAP PO PRN (16:46)
[2021-11-27] MEDS ORDERED: GLUCOSE 10 TAB/TUBE PO PRN (16:46)
[2021-11-27] MEDS ORDERED: traZODone HCL 50 MG TAB PO PRN (16:46)
[2021-11-27] MEDS ORDERED: GLUCOSE 40% GEL 15 GM TUBE PO PRN (16:46)
[2021-11-27] MEDS ORDERED: GLUCAGON FOR INJ 1 MG VIAL SQ PRN (16:46)
[2021-11-27] MEDS ORDERED: DEXTROSE 50% 50 ML SYRINGE IV PRN (16:46)
[2021-11-27] MEDS: INSULIN ASPART PER UNIT SC SCH ×2 (17:48→21:14)
[2021-11-27] MEDS: APIXABAN 5 MG TABLET PO SCH (21:04)
[2021-11-27] MEDS: METOPROLOL SUCC 25MG EXT REL TAB PO SCH (21:05)
[2021-11-27] MEDS: LANTUS PER UNIT CHARGE SQ SCH (21:14)
[2021-11-27] MEDS: PIPERACILLIN/TAZOBACTAM 3.375 GM in DEXTROSE 5% 100 ML IV SCH (21:15)
[2021-11-28] MEDS: PIPERACILLIN/TAZOBACTAM 3.375 GM in DEXTROSE 5% 100 ML IV SCH ×3 (05:37→20:51)
[2021-11-28] MEDS: LEVOTHYROXINE SODIUM 88 MCG TABLET PO SCH (05:37)
[2021-11-28 08:20] LABS: Basophils # (auto) 0.05 K/uL (0-0.2); Basophils % (auto) 0.6 %; Eosinophils # (auto) 0.12 K/uL (0-0.50); Eosinophils % (auto) 1.4 %; Hematocrit (blood only) 35.8 % (40.1-51.0); Hemoglobin 11.2 g/dl (14.0-18.0); Immature Granulocytes # (auto) 0.03 K/uL (0.00-0.02); Immature Granulocytes % (auto) 0.4 %; Lymphocytes % (auto) 11.7 %; Mean Corpuscular Hemoglobin 29.6 pg (25.0-34.0); Mean Corpuscular Hgb Conc 31.3 g/dL (32.0-36.0); Mean Corpuscular Volume 94.5 fL (80.0-100.0); Mean Platelet Volume 10.9 fL (9.4-12.4); Monocytes # (auto) 0.56 K/uL (0.24-0.82); Monocytes % (auto) 6.5 %; Neutrophils % (auto) 79.4 %; Platelet Count 272 K/uL (130-400); RDW Standard Deviation 52.2 fL (36.4-46.3); Red Blood Count 3.79 M/uL (4.63-6.08); White Blood Count 8.56 K/ul (4.8-10.8)
[2021-11-28 08:28] LABS: Estimated Average Glucose 243 mg/dl; Hemoglobin A1C 10.1 % (4.5-5.6)
[2021-11-28 08:35] LABS: BUN Creatinine Ratio 10.8 (10-20); Calcium 8.7 mg/dl (8.5-10.1); Est GFR (African American) 29.1 ml/min; Est GFR (Non-African American) 25.1 ml/min; Potassium 4.2 mmol/L (3.5-5.1)
[2021-11-28] MEDS: APIXABAN 5 MG TABLET PO SCH ×2 (08:44→20:45)
[2021-11-28] MEDS: METOPROLOL SUCC 25MG EXT REL TAB PO SCH ×2 (08:45→20:45)
[2021-11-28] MEDS: FERROUS SULFATE 325 MG TAB PO SCH (08:45)
[2021-11-28] MEDS: CHOLECALCIFEROL 1,000 UNITS 25 MCG TAB PO SCH (08:45)
[2021-11-28] MEDS: FOLIC ACID 1 MG TAB PO SCH (08:45)
[2021-11-28] MEDS: lisinopril 10 MG TAB PO SCH (08:45)
--- NOTE | 2021-11-28 08:49 | Electrocardiogram Report ---
Test Reason : Blood Pressure : / mmHG Vent. Rate : 074 BPM Atrial Rate : 074 BPM P-R Int : 220 ms QRS Dur : 106 ms QT Int : 420 ms P-R-T Axes : 073 -25 106 degrees QTc Int : 466 ms Sinus rhythm with 1st degree A-V block Leftward axis Abnormal ECG When compared with ECG of 26-JUL-2021 04:09, No significant change was found Confirmed by Miller Stein ([id number]) on 11/27/2021 12:58:54 PM Also confirmed by Miller Stein ([id number]), editorial intern Kiran Saxena ([id number]) on 11/28/2021 8:48:26 AM Referred By: REFERRED SELF Confirmed By:Miller Stein
[2021-11-28] MEDS: LANTUS PER UNIT CHARGE SQ SCH ×2 (08:52→20:44)
[2021-11-28] MEDS: INSULIN ASPART PER UNIT SC SCH ×4 (08:53→20:44)
--- NOTE | 2021-11-28 13:12 | Hospitalist Progress Note ---
Date of Service November 28, 2021 Assessment & Plan (1) Urinary tract infection: Plan: Possible diagnosis although may just be colonization with pseudomonas - would favor short 3 day course of antibiotics as main symptom on admission was diarrhea which may be explained by his E. coli. Given prior pseudomonas resistant to ciprofloxacin an prior adverse effect will continue with Zosyn pending urine and blood cultures - probable pseudomonas species growing at present time. Could consider repeating urine culture when he is well to see if he is colonized. (2) Diarrhea: Plan: EPEC on stool PCR test. No speciific treatment required for this. Possible his presentation was cause by this alone. (3) Paroxysmal atrial fibrillation: Plan: Presumed atrial flutter with rapid ventricular rates in the emergency room with rates 150 bpm although no EKG was taken at this time. Give his usual metoprolol succinate 12.5 mg p.o. now and metoprolol tartrate 5 mg IV as needed for heart rates greater than 130 bpm Patient will be monitored on telemetry - no further episodes since ER (4) Chronic kidney disease, stage 4 (severe): Plan: At baseline. Continue to monitor daily. (5) Acute hyperglycemia: Plan: Previous HbA1c 7.5 suggesting he has diabetes. Was to consider metformin on prior discharge however does not appear to be on any diabetes medications at present time. HbA1C 10.1 - recommend insulin on discharge Lantus 10 units twice daily -> increase to 15 units BID NovoLog - will tighten coverage given ongoing increased: --Goal BSG Range: Low 110 mg/dL, High 140 mg/dL --Correction Factor: 30 mg/dL/unit --Carbohydrate ratio = 10 g/unit --BSGs ACHS if eating, q6h if npo (6) Essential hypertension: Plan: Continue his usual lisinopril 10 mg p.o. daily and metoprolol succinate 12.5 p.o. twice daily (7) Hypothyroidism: Plan: TSH 1.666 Continue levothyroxine 88 mcg p.o. daily Plan VTE Prophylaxis - Apixaban Diet - T2DM Disposition - admit to med/tele (expected stay two midnights or longer) Admission and Anticipated Discharge Date Admission Date: November 27, 2021 Subjective No further diarrhea feeling back to his baseline self. No CVA tenderness, nausea, vomiting or abdominal pain. No further episodes of a. flutter on telemetry. Review of Systems Review of Systems: All systems reviewed & are unremarkable except as noted in Subjective Physical Exam Constitutional: WD/WN, vitals as above Eyes: + anicteric sclerae; normal pupil size Respiratory: normal respiratory effort, lungs clear to auscultation Cardiovascular: Rate/Rhythm: regular rate and regular rhythm Heart Sounds: no murmur Extremities: normal capillary refill and + pedal edema (1+ bilateral pitting); no calf tenderness Gastrointestinal (Abdomen): Inspection/Auscultation: abdomen normal to inspection and + hyperactive bowel sounds; abdomen not distended Percussion/Palpation: abdomen soft; abdomen nontender, no guarding and abdomen not rigid Musculoskeletal: no cyanosis or clubbing, extremities motor strength 5/5 Skin: no rashes, warm and dry (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) Neurologic: moves all extremities and awake; not confused Psychiatric: A+Ox3, euthymic affect Results & Data Results & Data ([facility]) Vital Signs (Past 12 Hours) Vital Signs Temp Pulse Pulse Resp BP BP Pulse Ox 11/28/21 11:15 36.5 C 61 18 137/71 100 11/28/21 08:00 60 11/28/21 08:17 36.3 C L 70 18 138/67 98 11/28/21 03:00 36.4 C L 66 20 137/74 98 O2 Del Method O2 Flow Rate 11/28/21 11:15 Nasal Cannula 4 11/28/21 08:00 11/28/21 08:17 Nasal Cannula 4 11/28/21 03:00 Nasal Cannula 4 PG Care Time/CCT Total # of Minutes Spent Total Time Spent with Patient: Total time spent is greater than 50% in coordination of care (as documented) at patient's floor/unit and/or counseling patient: Coding Level of Care Code 20016 Subseq Hosp Care Lvl 2 Diagnoses Urinary tract infection N39.0 Hematuria presence: without hematuria Urinary tract infection type: site unspecified Diarrhea R19.7 Paroxysmal atrial fibrillation I48.0 Chronic kidney disease, stage 4 (severe) N18.4 Acute hyperglycemia R73.9 Essential hypertension I10 Hypothyroidism E03.9 (1) Urinary tract infection Hematuria presence: without hematuria Urinary tract infection type: site u nspecified Qualified Code(s): N39.0 - Urinary tract infection, site not specified
[2021-11-29] MEDS: LEVOTHYROXINE SODIUM 88 MCG TABLET PO SCH (05:39)
[2021-11-29] MEDS: PIPERACILLIN/TAZOBACTAM 3.375 GM in DEXTROSE 5% 100 ML IV SCH ×3 (05:39→20:51)
[2021-11-29] MEDS: APIXABAN 5 MG TABLET PO SCH ×2 (08:32→20:50)
[2021-11-29] MEDS: lisinopril 10 MG TAB PO SCH (08:32)
[2021-11-29] MEDS: CHOLECALCIFEROL 1,000 UNITS 25 MCG TAB PO SCH (08:32)
[2021-11-29] MEDS: METOPROLOL SUCC 25MG EXT REL TAB PO SCH ×2 (08:32→20:50)
[2021-11-29] MEDS: FOLIC ACID 1 MG TAB PO SCH (08:32)
[2021-11-29] MEDS: FERROUS SULFATE 325 MG TAB PO SCH (08:32)
[2021-11-29] MEDS: INSULIN ASPART PER UNIT SC SCH ×4 (08:38→20:51)
[2021-11-29] MEDS: LANTUS PER UNIT CHARGE SQ SCH ×2 (08:39→20:50)
--- NOTE | 2021-11-29 10:55 | Hospitalist Progress Note ---
Date of Service November 29, 2021 Assessment & Plan (1) Urinary tract infection: Plan: Possible diagnosis although may just be colonization with pseudomonas - would favor short 3 day course of antibiotics (last day tomorrow) as main symptom on admission was diarrhea which may be explained by his E. coli PCR in stool. Given prior pseudomonas resistant to ciprofloxacin an prior adverse effect will continue with Zosyn pending urine and blood cultures - probable pseudomonas species growing at present time. Could consider repeating urine culture when he is well to see if he is colonized. (2) Diarrhea: Plan: EPEC on stool PCR test. No speciific treatment required for this. Possible his presentation was cause by this alone. (3) Paroxysmal atrial fibrillation: Plan: Presumed atrial flutter with rapid ventricular rates in the emergency room with rates 150 bpm although no EKG was taken at this time. Give his usual metoprolol succinate 12.5 mg p.o. now and metoprolol tartrate 5 mg IV as needed for heart rates greater than 130 bpm Patient will be monitored on telemetry - no further episodes since ER (4) Chronic kidney disease, stage 4 (severe): Plan: At baseline. Continue to monitor daily. (5) Acute hyperglycemia: Plan: Previous HbA1c 7.5 suggesting he has diabetes. Was to consider metformin on prior discharge however does not appear to be on any diabetes medications at present time. HbA1C 10.1 - recommend insulin on discharge Lantus 10 units twice daily -> increase to 20 units BID NovoLog - will tighten coverage given ongoing increased: --Goal BSG Range: Low 110 mg/dL, High 140 mg/dL --Correction Factor: 27 mg/dL/unit --Carbohydrate ratio = 9 g/unit --BSGs ACHS if eating, q6h if npo (6) Essential hypertension: Plan: Continue his usual lisinopril 10 mg p.o. daily and metoprolol succinate 12.5 p.o. twice daily (7) Hypothyroidism: Plan: TSH 1.666 Continue levothyroxine 88 mcg p.o. daily Plan VTE Prophylaxis - Apixaban Diet - T2DM Disposition - admit to med/tele (expected stay two midnights or longer) Admission and Anticipated Discharge Date Admission Date: November 27, 2021 Subjective Ongoing loose stool but not watery. No urinary Sx. No fever or chills. No nausea, vomiting or abdominal pain. No questions or concerns. Review of Systems Review of Systems: All systems reviewed & are unremarkable except as noted in Subjective Physical Exam Constitutional: WD/WN, vitals as above Eyes: + anicteric sclerae; normal pupil size Cardiovascular: Rate/Rhythm: regular rate and regular rhythm Heart Sounds: no murmur Extremities: + pedal edema (1+ bilateral pitting) Gastrointestinal (Abdomen): Inspection/Auscultation: normal bowel sounds; abdomen not distended Percussion/Palpation: abdomen soft; abdomen nontender, no guarding and abdomen not rigid Neurologic: moves all extremities and awake; not confused Psychiatric: A+Ox3, euthymic affect Results & Data Results & Data ([facility]) Vital Signs (Past 12 Hours) Vital Signs Temp Pulse Pulse Resp BP Pulse Ox O2 Del Method 11/29/21 07:00 36.7 C 63 20 107/57 L 99 Nasal Cannula 11/29/21 03:00 36.7 C 65 20 118/67 99 Nasal Cannula 11/29/21 00:41 64 11/28/21 23:03 Room Air O2 Flow Rate 11/29/21 07:00 4 11/29/21 03:00 4 11/29/21 00:41 11/28/21 23:03 PG Care Time/CCT Total # of Minutes Spent Total Time Spent with Patient: Total time spent is greater than 50% in coordination of care (as documented) at patient's floor/unit and/or counseling patient: Coding Level of Care Code 20040 Subseq Hosp Care Lvl 1 Diagnoses Urinary tract infection N39.0 Hematuria presence: without hematuria Urinary tract infection type: site unspecified Diarrhea R19.7 Paroxysmal atrial fibrillation I48.0 Chronic kidney disease, stage 4 (severe) N18.4 Acute hyperglycemia R73.9 Essential hypertension I10 Hypothyroidism E03.9 (1) Urinary tract infection Hematuria presence: without hematuria Urinary tract infection type: site unspecified Qualified Code(s): N39.0 - Urinary tract infection, site not specified
[2021-11-30] MEDS: PIPERACILLIN/TAZOBACTAM 3.375 GM in DEXTROSE 5% 100 ML IV SCH ×2 (05:35→12:32)
[2021-11-30] MEDS: LEVOTHYROXINE SODIUM 88 MCG TABLET PO SCH (05:36)
[2021-11-30] MEDS: FERROUS SULFATE 325 MG TAB PO SCH (08:34)
[2021-11-30] MEDS: CHOLECALCIFEROL 1,000 UNITS 25 MCG TAB PO SCH (08:34)
[2021-11-30] MEDS: METOPROLOL SUCC 25MG EXT REL TAB PO SCH (08:34)
[2021-11-30] MEDS: FOLIC ACID 1 MG TAB PO SCH (08:34)
[2021-11-30] MEDS: lisinopril 10 MG TAB PO SCH (08:34)
[2021-11-30] MEDS: APIXABAN 5 MG TABLET PO SCH (08:34)
[2021-11-30] MEDS: INSULIN ASPART PER UNIT SC SCH ×2 (08:35→12:20)
[2021-11-30] MEDS: LANTUS PER UNIT CHARGE SQ SCH (08:41)
--- NOTE | 2021-11-30 14:03 | Discharge Summary ---
Date of Service November 30, 2021 Admission HPI Per Admitting Provider Rafael Santos is a 76 year old male who presents to the ER with nausea, vomiting and diarrhea. He reports symptoms started yesterday with an upset stomach, weak will and felt like being hit by a truck. As the day went on he started to feel better but with reduced appetite and only able to manage a noodle soup and crackers last night. He woke up this morning feeling around about the same. He did not take any of his medications. No headache, cough, chest pain, abdominal pain, sinus pain and nasal congestion at baseline. While in the emergency room he developed a narrow complex regular tachycardia with rate 150 bpm from approximately 11:30am to 2pm prior to being seen by myself with no treatment given. He spontaneously converted back to a normal sinus rhythm which he is currently in when seen. He was asymptomatic during this time and specifically denies any palpitations, chest pain or shortness of breath. He has known paroxysmal atrial fibrillation with rapid ventricular rate. In the ER urinalysis was grossly positive for infection. He has previously grown Pseudomonas resistant to ciprofloxacin therefore he was given a dose of intravenous Zosyn and referred to medicine for admission ongoing management of UTI. Principal Diagnosis E. coli gastroenteritis Possible urinary tract infection Type 2 diabetes mellitus with hyperglycemia Discharge Exam Constitutional WD/WN, vitals as above Eyes + anicteric sclerae; normal pupil size Respiratory normal respiratory effort, lungs clear to auscultation Cardiovascular Rate/Rhythm: regular rate and regular rhythm Heart Sounds: no murmur Extremities: normal capillary refill and + pedal edema (1+ bilateral pitting); no calf tenderness Gastrointestinal (Abdomen) Inspection/Auscultation: abdomen normal to inspection and normal bowel sounds; abdomen not distended Percussion/Palpation: abdomen soft; abdomen nontender, no guarding and abdomen not rigid Neurologic moves all extremities and awake; not confused Psychiatric A+Ox3, euthymic affect Discharge Data Allergies Allergy/AdvReac Type Severity Reaction Status Date / Time ciprofloxacin [From Cipro] AdvReac Intermediate Upset Unverified 11/27/21 14:25 Stomach, Nausea, GI Discomfort Consultations 11/27/21 14:57 ED Decision to Admit Stat Ordered Studies 11/27/21 10:50 CT abd pelvis wo con Stat IMPRESSION: 1. No bowel wall thickening or obstruction. 2. Fluid within the nondistended colon. This could represent a gastroenteritis/diarrheal illness. 3. Cholelithiasis and gallbladder sludge. 4. Additional stable findings as described above. Diabetes Follow up Diabetes Follow-up Needed for HgbA1c >9% Hospital Course (1) Urinary tract infection: Rafael Santos is a 76 year old male admitted to [facility] from November 27 - 2021 due to diarrhea and hyperglycemia. He was diagnosed with E. coli (EPEC) gastroenteritis with diarrhea improving during his admission. He was also diagnosed with a possible urinary tract infection although this may also be just colonization as he was having not specific symptoms other than weakness that could be explained by his gastroenteritis. He was treated for this for three days with intravenous Zosyn due to intermediate resistance to ciprofloxacin and your prior side effects to this medication. No further antibiotics required on discharge. He had one 2 hour episode of narrow complex regular tachycardia in the emergency room (presumed a. flutter although no EKG was taken at that time). This spontaneous converted and he has known atrial fibrillation therefore no change in management was performed. Likely due to him missing his morning dose of metoprolol and dehydration from gastroenteritis above. He was also noted to have uncontrolled diabetes with HbA1C 10.1. He was started on Lantus and uptitrated in hospital to 20 units twice a day. Recommend he follows up with his primary care provider for a glucometer, testing strips, finger stick needles and ongoing optimization of this. He was advised to call the diabetes office on [phone] if he has any questions prior to following up wit his PCP. (2) Diarrhea: (3) Paroxysmal atrial fibrillation: (4) Chronic kidney disease, stage 4 (severe): (5) Acute hyperglycemia: (6) Essential hypertension: (7) Hypothyroidism: Total Time Total Time Spent Total Time Spent (In Minutes): 40 Discharge Plan Discharge Items Patient Disposition: Home - Self-Care Reason For Visit: ACUTE UTI, HYPERGLYCEMIA Discharge Diagnosis: E. coli gastroenteritis Possible urinary tract infection Type 2 diabetes mellitus with hyperglycemia (high glucose levels) Activity: Resume your previous activity Non-emergency contact: Primary Care Provider Call non-emergency contact if: you have any medication questions and your symptoms worsen Follow-up/Referrals: Mann Bright, SHANE-C [Primary Care Provider] - Diet: Carb Consistent or DM2 and Heart Healthy Addtl Attending Provider Instructions: You were admitted to [facility] from November 27 - 2021 due to diarrhea and high glucose levels. You were diagnosed with E. coli gastroenteritis - this is usually self limiting and does not need any specific treatment. You were also diagnosed with a possible urinary tract infection although this may also be just colonization. You were treated for this for three days with intravenous Zosyn due to intermediate resistance to ciprofloxacin and your prior side effects to this medication. No further antibiotics required on discharge. You were also noted to have uncontrolled diabetes with HbA1C 10.1. You were started on a long acting insulin for this called Rosie and uptitrated in hospital to 20 units twice a day. Please follow up with you primary care provider for a glucometer, testing strips, finger stick needles and ongoing optimazation of management for this. Please contact the diabetes office on [phone] if you have any questions. Pending Studies at Discharge: No Stand-Alone Forms: [facility], Smoking Cessation Medications and DC Order Prescriptions: New insulin glargine [Lantus Solostar U-100 Insulin] 100 unit/mL (3 mL) insulin pen 20 unit subcut BID Qty: 15 0RF Continued apixaban 5 mg tablet 5 mg PO BID cholecalciferol (vitamin D3) 25 mcg (1,000 unit) capsule 25 mcg PO QAM folic acid 1 mg tablet 1 mg PO QAM levothyroxine 88 mcg capsule 88 mcg PO DAILYBB metoprolol succinate 25 mg tablet extended release 24 hr 12.5 mg PO BID lisinopril 10 mg tablet 10 mg PO DAILY Qty: 90 3RF trazodone 50 mg tablet 50 mg PO HS PRN (Reason: Sleep) ferrous sulfate [FeroSul] 325 mg (65 mg iron) tablet 325 mg PO QAM gabapentin 100 mg capsule 100 mg PO QID PRN (Reason: Nerve Pain) Discharge Orders: Discharge Order (Routine); Ordered 11/30/21 Ordered By: Toño Ramirez/Other Patient Handouts: High Blood Sugar (Hyperglycemia), Managing Type 2 Diabetes, Diabetes Blood Glucose Check Ch, ED Diet: Diabetes, ED Using an Injection Pen Admission Data Admit Date/Time: 11/27/21 14:54 Attending Provider: Toño Saunders Admit Provider: Toño Saunders Primary Care Provider: Mann Birght Other Providers: Toño Saunders ; [facility] Other Interventions: Discharge Summary Assessment (RN) Last Done: 11/30/21 14:23 Coding Level of Care Code D/C DAY MANAGEMENT >30 MINS Diagnoses Urinary tract infection N39.0 Hematuria presence: without hematuria Urinary tract infection type: site unspecified Diarrhea R19.7 Paroxysmal atrial fibrillation I48.0 Chronic kidney disease, stage 4 (severe) N18.4 Acute hyperglycemia R73.9 Essential hypertension I10 Hypothyroidism E03.9
== END 2021-11-30 16:20 | disposition home health service (06) | DRG 690 ==
LOC: ED 10:07 → 2N 14:54 → 2W 16:00
DX: I12.9 Hypertensive chronic kidney disease with stage 1 through stage 4 chronic kidney disease, or unspecified chronic kidney disease; A04.4 Other intestinal Escherichia coli infections; Z16.29 Resistance to other single specified antibiotic; D63.1 Anemia in chronic kidney disease; E03.9 Hypothyroidism, unspecified; I48.92 Unspecified atrial flutter; Z79.01 Long term (current) use of anticoagulants; Z88.1 Allergy status to other antibiotic agents; N18.4 Chronic kidney disease, stage 4 (severe); I48.0 Paroxysmal atrial fibrillation; E11.22 Type 2 diabetes mellitus with diabetic chronic kidney disease; N39.0 Urinary tract infection, site not specified; Z79.890 Hormone replacement therapy; E11.65 Type 2 diabetes mellitus with hyperglycemia

== ENCOUNTER 2021-12-09 14:38 | Inpatient (IN) ==
--- NOTE | 2021-12-09 16:14 | XRay Report ---
XR chest 1V portable CLINICAL HISTORY: illness TECHNIQUE: Single frontal radiograph of the chest was obtained. Comparison: Comparison is made to chest radiograph 11/27/[address] abdomen pelvis 11/27/2021 FINDINGS: No lines and tubes are seen. Cardiomegaly is noted. Calcified aortic knob is seen. Hazy opacity is ag ain seen in the left lower lung. No evidence of pleural effusion or pneumothorax. IMPRESSION: 1. Hazy opacity in the left lower lung is nonspecific. It is favored to represent a component of ate lectasis and prominent extrapleural fat, however superimposed aspiration and/or pneumonia cannot be e xcluded. 2. Stable cardiomegaly. ACT 112: Negative or not required by law. Electronically signed by: Moshe Rodrigez M.D. 12/09/2021 4:13 PM
[2021-12-09 16:33] LABS: Basophils # (auto) 0.04 K/uL (0-0.2); Basophils % (auto) 0.4 %; Eosinophils % (auto) 1.1 %; Hematocrit (blood only) 40.7 % (40.1-51.0); Hemoglobin 12.6 g/dl (14.0-18.0); Immature Granulocytes # (auto) 0.04 K/uL (0.00-0.02); Immature Granulocytes % (auto) 0.4 %; Lymphocytes # (auto) 0.75 K/uL (1.2-3.4); Mean Corpuscular Hemoglobin 29.7 pg (25.0-34.0); Mean Platelet Volume 10.3 fL (9.4-12.4); Monocytes # (auto) 0.58 K/uL (0.24-0.82); Monocytes % (auto) 6.2 %; Neutrophils # (auto) 7.84 K/uL (1.4-6.5); Neutrophils % (auto) 83.9 %; Platelet Count 289 K/uL (130-400); RDW Coefficient of Variation 14.9 % (11.5-14.5); RDW Standard Deviation 52.3 fL (36.4-46.3); Red Blood Count 4.24 M/uL (4.63-6.08); White Blood Count 9.35 K/ul (4.8-10.8)
--- NOTE | 2021-12-09 16:43 | Emergency Department Note ---
History of Present Illness General Chief complaint: Illness Stated complaint: Illness Time Seen by Provider: 12/09/21 15:32 History of Present Illness Maximum Pain Intensity: 8 76-year-old male presents to the ED with a chief complaint of not feeling well. He reports an upset stomach and some nausea and some generalized weakness. His symptoms started this morning when he awoke. He states that he has the same symptoms that he had 2 weeks ago when he had a urinary tract infection. P revious urine infection showed Pseudomonas that was sensitive only to IV antibiotics and intermediately sensitive to Cipro. The patient reports allergies to Cipro related to upset stomach, nausea and GI discomfort. No additional complaints at this time. No fevers. No chest pains or shortness of breath. No cough. Home Medications Medication Instructions Recorded Confirmed Type apixaban 5 mg tablet 5 mg PO BID 04/25/21 12/09/21 History cholecalciferol (vitamin D3) 25 25 mcg PO QAM 04/25/21 12/09/21 History mcg (1,000 unit) capsule folic acid 1 mg tablet 1 mg PO QAM 04/25/21 12/09/21 History levothyroxine 88 mcg capsule 88 mcg PO DAILYBB 04/25/21 12/09/21 History metoprolol succinate 25 mg 12.5 mg PO BID 05/05/21 12/09/21 History tablet,extended release 24 hr ferrous sulfate 325 mg (65 mg 325 mg PO QAM 06/30/21 12/09/21 History iron) tablet (FeroSul) gabapentin 100 mg capsule 100 mg PO QID PRN Nerve Pain 06/30/21 12/09/21 History trazodone 50 mg tablet 50 mg PO HS PRN Sleep 06/30/21 12/09/21 History lisinopril 10 mg tablet 10 mg PO DAILY #90 tabs 08/25/21 12/09/21 Rx insulin glargine 100 unit/mL (3 20 unit (0.2 mL) subcut BID #15 mL 11/30/21 12/09/21 Rx mL) subcutaneous pen (Lantus Solostar U-100 Insulin) Allergies Allergy/AdvReac Type Severity Reaction Status Date / Time ciprofloxacin [From Cipro] AdvReac Intermediate Upset Unverified 12/09/21 15:31 Stomach, Nausea, GI Discomfort Past Med/Surg History Medical History Age-related nuclear cataract, right eye Anemia due to chronic kidney disease Chronic kidney disease, stage 4 (severe) Stage 3b chronic kidney disease Vitamin D deficiency Social History Smoking Status: Never smoker Hx Alcohol Use: No Hx Substance Use: No Preferred Language: Vietnamese Communication Ability: Effective Marine Biologist Required: No Beliefs That Will Affect Care: None marital status: / Current Living Situation: Alone Feels Safe at Home: Yes Assistive Devices: Cane Review of Systems A total of 10 systems reviewed and were otherwise negative Physical Exam Vital Signs Vital Signs - 24 hr 12/09/21 14:46 12/09/21 15:30 12/09/21 17:00 Temperature 35.8 C L Temperature Source Temporal Artery Scan Pulse Rate 64 Pulse Rate [Apical] 68 61 Respiratory Rate 20 18 20 Respiratory Effort / Characteristics Non-Labored Spontaneous Respiratory Depth Normal Respiratory Pattern Regular Blood Pressure 170/85 H Blood Pressure [Left Arm] 189/74 H 162/74 H Blood Pressure Mean 113 Blood Pressure Mean [Left Arm] 112 103 Blood Pressure Position Sitting Pulse Oximetry 94 100 99 Oxygen Delivery Method Room Air Room Air Room Air Sepsis Recent Fever Within 48 Hours No Sepsis New/Unexplained Change in Mental Status No Sepsis Action Taken by Nursing No Action Required CONSTITUTIONAL/VITAL SIGNS: Reviewed / noted above. GENERAL: Non-toxic in appearance. INTEGUMENTARY: Warm, dry, and [place]. HEAD: Normocephalic. EYES: without scleral icterus or trauma. ENT/OROPHARYNX: clear and moist. LYMPHADENOPATHY/NECK: Is supple without lymphadenopathy or meningismus. RESPIRATORY: Clear to auscultation bilaterally. No increased work of breathing. CARDIOVASCULAR: Regular rate and rhythm. GI/ABDOMEN: Soft and nontender. No organomegaly or pulsatile mass. EXTREMITIES: Warm and well perfused. BACK: No CVA tenderness. NEUROLOGICAL: Intact without focal deficits. PSYCHIATRIC: normal affect. MUSCULOSKELETAL: Normally developed with good muscle tone. TRIAGE NURSING DOCUMENTATION REVIEWED. Course Administered Medications Discontinued Medications Cefepime HCl (Maxipime) 2,000 mg in 20 mls @ 5 mls/min IV NOW STA; Protocol Stop: 12/09/21 17:58 Last Admin: 12/09/21 18:12 Dose: 5 mls/min Documented By: CHRISTIANO Medical Decision Making Differential Diagnosis Differential includes acute coronary syndrome, myocardial infarction, CVA, TIA, anemia, infection, pneumonia, UTI, pyelonephritis, poor nutrition, dehydration, electrolyte disturbance,hypoglycemia. Medical Records Attestation: I reviewed the patient's medical records. Home Medications Current Medication List: was personally reviewed by me Laboratory Data Attestation: I reviewed the patient's lab results. Result diagrams: 12/09/21 16:22 12/09/21 16: Lab Results 12/09/21 12/09/21 12/09/21 Range/Units 16:22 16: 16: WBC 9.35 (4.8-10.8) K/ul RBC 4.24 L (4.63-6.08) M/uL Hgb 12.6 L (14.0-18.0) g/dl Hct 40.7 (40.1-51.0) % MCV 96.0 (80.0-100.0) fL MCH 29.7 (25.0-34.0) pg MCHC 31.0 L (32.0-36.0) g/dL RDW Std Deviation 52.3 H (36.4-46.3) fL RDW Coeff of Yolanda 14.9 H (11.5-14.5) % Plt Count 289 (130-400) K/uL MPV 10.3 (9.4-12.4) fL Immature Gran % (Auto) 0.4 % Neut % (Auto) 83.9 % Lymph % (Auto) 8.0 % [place] % (Auto) 6.2 % Eos % (Auto) 1.1 % Baso % (Auto) 0.4 % Neut # (Auto) 7.84 H (1.4-6.5) K/uL Lymph # (Auto) 0.75 L (1.2-3.4) K/uL [place] # (Auto) 0.58 (0.24-0.82) K/uL Eos # (Auto) 0.10 (0-0.50) K/uL Baso # (Auto) 0.04 (0-0.2) K/uL Immature Gran # (Auto) 0.04 H (0.00-0.02) K/uL PT 10.3 (9.0-12.0) Seconds INR 1.0 (0.9-1.1) APTT 28.5 (21.0-31.0) Seconds PTT Ratio 1.0 Sodium 138 (136-145) mmol/L Potassium 4.4 (3.5-5.1) mmol/L Chloride 106 (98-107) mmol/L Carbon Dioxide 25 (21-32) mmol/L Anion Gap 7 (3-11) BUN 29 H (6-23) mg/dl Creatinine 2.08 H (0.6-1.4) mg/dl Est Cr Clr Drug Dosing 42.8 ml/min Est GFR ( Amer) 34.8 ml/min Est GFR (Non-Af Amer) 30.0 ml/min BUN/Creatinine Ratio 13.9 (10-20) Glucose 151 H (70-99(Fasting)) mg/dl Calcium 9.5 (8.5-10.1) mg/dl Total Bilirubin 0.4 (0.2-1.0) mg/dl AST 11 L (13-39) U/L ALT 14 (7-52) U/L Alkaline Phosphatase 59 (34-104) U/L Total Protein 7.4 (6.0-8.3) gm/dl Albumin 3.6 (3.4-5.0) gm/dl Globulin 3.8 (2.5-4.0) gm/dl Albumin/Globulin Ratio 0.9 (0.9-2) Urine Color Urine Appearance (Clear) Urine pH (4.5-7.5) Ur Specific [place] (1.000-1.030) Urine Protein (Negative) Urine Glucose (UA) (Negative) Urine Ketones (Negative) Urine Blood (Negative) Urine Nitrite (Negative) Urine Bilirubin (Negative) Urine Urobilinogen (Negative) Ur Leukocyte Esterase (Negative) Urine WBC (Auto) (0-5) /hpf Urine RBC (Auto) (0-4) /hpf U Hyaline Cast (Auto) (0-5) /lpf U Epithel Cells (Auto) (0-5) /lpf Urine Bacteria (Auto) (Negative) 12/09/21 Range/Units 16:34 WBC (4.8-10.8) K/ul RBC (4.63-6.08) M/uL Hgb (14.0-18.0) g/dl Hct (40.1-51.0) % MCV (80.0-100.0) fL MCH (25.0-34.0) pg MCHC (32.0-36.0) g/dL RDW Std Deviation (36.4-46.3) fL RDW Coeff of Yolanda (11.5-14.5) % Plt Count (130-400) K/uL MPV (9.4-12.4) fL Immature Gran % (Auto) % Neut % (Auto) % Lymph % (Auto) % [place] % (Auto) % Eos % (Auto) % Baso % (Auto) % Neut # (Auto) (1.4-6.5) K/uL Lymph # (Auto) (1.2-3.4) K/uL [place] # (Auto) (0.24-0.82) K/uL Eos # (Auto) (0-0.50) K/uL Baso # (Auto) (0-0.2) K/uL Immature Gran # (Auto) (0.00-0.02) K/uL PT (9.0-12.0) Seconds INR (0.9-1.1) APTT (21.0-31.0) Seconds PTT Ratio Sodium (136-145) mmol/L Potassium (3.5-5.1) mmol/L Chloride (98-107) mmol/L Carbon Dioxide (21-32) mmol/L Anion Gap (3-11) BUN (6-23) mg/dl Creatinine (0.6-1.4) mg/dl Est Cr Clr Drug Dosing ml/min Est GFR ( Amer) ml/min Est GFR (Non-Af Amer) ml/min BUN/Creatinine Ratio (10-20) Glucose (70-99(Fasting)) mg/dl Calcium (8.5-10.1) mg/dl Total Bilirubin (0.2-1.0) mg/dl AST (13-39) U/L ALT (7-52) U/L Alkaline Phosphatase (34-104) U/L Total Protein (6.0-8.3) gm/dl Albumin (3.4-5.0) gm/dl Globulin (2.5-4.0) gm/dl Albumin/Globulin Ratio (0.9-2) Urine Color Yellow Urine Appearance Cloudy A (Clear) Urine pH 6.0 (4.5-7.5) Ur Specific [place] 1.011 (1.000-1.030) Urine Protein Trace H (Negative) Urine Glucose (UA) Trace H (Negative) Urine Ketones Negative (Negative) Urine Blood 1+ H (Negative) Urine Nitrite Positive A (Negative) Urine Bilirubin Negative (Negative) Urine Urobilinogen Negative (Negative) Ur Leukocyte Esterase 3+ H (Negative) Urine WBC (Auto) >30 H (0-5) /hpf Urine RBC (Auto) 0-4 (0-4) /hpf U Hyaline Cast (Auto) 1-5 (0-5) /lpf U Epithel Cells (Auto) 5-10 H (0-5) /lpf Urine Bacteria (Auto) 2+ H (Negative) Imaging Data Radiologist's Impression: Chest X-Ray 12/09/21 14:58 XR chest 1V portable CLINICAL HISTORY: illness TECHNIQUE: Single frontal radiograph of the chest was obtained. Comparison: Comparison is made to chest radiograph 11/27/[address] abdomen pelvis 11/27/2021 FINDINGS: No lines and tubes are seen. Cardiomegaly is noted. Calcified aortic knob is seen. Hazy opacity is again seen in the left lower lung. No evidence of pleural effusion or pneumothorax. IMPRESSION: 1. Hazy opacity in the left lower lung is nonspecific. It is favored to represent a component of atelectasis and prominent extrapleural fat, however superimposed aspiration and/or pneumonia cannot be excluded. 2. Stable cardiomegaly. ACT 112: Negative or not required by law. Electronically signed by: Moshe Rodrigez M.D. 12/09/2021 4:13 PM ECG Data Additional Comments: Twelve-lead EKG: Per my interpretation shows a sinus rhythm at a rate of 56 with a first-degree AV block. No ST elevation. No PVCs. Normal QTC. MDM Narrative 76-year-old male presents with a chief complaint of nausea and weakness that started this morning. He had similar symptoms a couple of weeks ago when he was diagnosed with a UTI. Culture showed Pseudomonas that was sensitive to only IV antibiotics other than Cipro to which he claims he has an allergy. His exam was unremarkable. An EKG shows a sinus rhythm at a rate of 56 with a first-degree AV block. CBC is normal. Chest x-ray did not show acute pathology. He has no pulmonary symptoms to suggest pneumonia. Urine is suggestive of infection. The patient was given IV cefepime which was sensitive to his previous culture. He was also given some IV Zofran for some nausea. He will be seen by the hospitalist for further evaluation and care. Impression & Plan Acute UTI Discharge Plan Visit Data Chief Complaint: Illness Stated Complaint: Illness ED Provider: Bean Dunaway Discharge Problem: Acute UTI Patient Disposition: Being Evaluated by Hospitalist Forms Stand Alone Forms: [facility], Virtual Emergency Department, Important Visit Information Prescriptions Prescriptions: No Action apixaban 5 mg tablet 5 mg PO BID cholecalciferol (vitamin D3) 25 mcg (1,000 unit) capsule 25 mcg PO QAM folic acid 1 mg tablet 1 mg PO QAM levothyroxine 88 mcg capsule 88 mcg PO DAILYBB metoprolol succinate 25 mg tablet extended release 24 hr 12.5 mg PO BID lisinopril 10 mg tablet 10 mg PO DAILY Qty: 90 3RF trazodone 50 mg tablet 50 mg PO HS PRN (Reason: Sleep) ferrous sulfate [FeroSul] 325 mg (65 mg iron) tablet 325 mg PO QAM gabapentin 100 mg capsule 100 mg PO QID PRN (Reason: Nerve Pain) insulin glargine [Lantus Solostar U-100 Insulin] 100 unit/mL (3 mL) insulin pen 20 unit subcut BID Qty: 15 0RF Referrals Referrals: Mann Bright, [facility] [Primary Care Provider] -
[2021-12-09 16:48] LABS: Partial Thromboplastin Time 28.5 Seconds (21.0-31.0); Prothrombin Time 10.3 Seconds (9.0-12.0)
[2021-12-09 16:58] LABS: Albumin Globulin Ratio 0.9 (0.9-2); Albumin Level 3.6 gm/dl (3.4-5.0); BUN Creatinine Ratio 13.9 (10-20); Bilirubin,Total 0.4 mg/dl (0.2-1.0); Calcium 9.5 mg/dl (8.5-10.1); Creatinine Clr Calc Pharmacy 42.8 ml/min; Est GFR (African American) 34.8 ml/min; Globulin 3.8 gm/dl (2.5-4.0); Potassium 4.4 mmol/L (3.5-5.1); Total Protein 7.4 gm/dl (6.0-8.3)
[2021-12-09 17:00] LABS: Appearance Urine Cloudy (Clear); Bacteria Urine Automated 2+ (Negative); Bilirubin Urine Negative (Negative); Blood Urine 1+ (Negative); Color Urine Yellow; Glucose Urine UA Trace (Negative); Ketones Urine Negative (Negative); Leukocyte Esterase Urine 3+ (Negative); Nitrite Urine Positive (Negative); Protein Urine Trace (Negative); RBC Urine Automated 0-4 /hpf (0-4); Specific Gravity Urine 1.011 (1.000-1.030); Urobilinogen Urine Negative (Negative); WBC Urine Automated >30 /hpf (0-5)
[2021-12-09] MEDS ORDERED: CEFEPIME 2,000 MG/20 ML VIAL IV STA (17:55)
[2021-12-09] MEDS ORDERED: ONDANSETRON INJ 2 MG/ML 2 ML VIAL IV STA ×2 (18:30→20:14)
--- NOTE | 2021-12-09 19:25 | History & Physical Report ---
Date of Service December 09, 2021 Assessment & Plan (1) Urinary tract infection: Plan: - UA with 3+ leukocyte esterase, positive nitrates, >30 WBCs, and 2+ bacteria. Patient not really presenting with any urinary symptoms, however presents with weakness/nausea/dizziness which is how he reports he has felt previously when he has UTIs. - Previous cultures have grown Pseudomonas, in the past year he has been hospitalized twice and treated for a Pseudomonas infection with cefepime in July and Zosyn most recently 2 weeks ago, however at that time it was thought that he may be colonized with Pseudomonas as he consistently grows this but does not present with symptoms, therefore he was given a 3-day course of Zosyn and treated primarily for diarrheal illness. -Urine culture is pending. He was given initial dose of cefepime in the ED. As he has had multiple urine cultures grew out Pseudomonas and continues to prevent with presumed UTI infections, we will treat with 2 antibiotics to hopefully eradicate Pseudomonas growth. - Continue cefepime and add on ciprofloxacin 400 mg every 12 hours. Patient has a history of GI upset/nausea with oral ciprofloxacin, however is agreeable to try adding the antibiotic with IV Zofran and IV Protonix as needed to mitigate side effects. - Patient is recently newly diagnosed diabetic with most recent A1c 10.1% last week. He is on Lantus 20 units twice daily. Tighter management of sugars will help. - Renal function is at baseline, however patient has CKD stage IV, so as to avoid inducing BRETT, will provide IVF LR 150 cc/hour. - Echo from June 2021 with EF 65-70%. (2) Diabetes: Plan: - Usually diagnosed based elevated A1c and sugars on admission in July, most recent A1c 11/28 10.1% - Continue Lantus 20 units twice daily with SSI, Accuchecks ACHS. - Continue gabapentin for neuropathic pain. (3) Chronic kidney disease, stage 4 (severe): Plan: - Creatinine, GFR at about baseline. - Renally dose medications as able, avoid nephrotoxins. - IVF as above. - Monitor renal function on a.m. labs. (4) Anemia due to chronic kidney disease: Plan: - Hgb stable today, continue iron supplementation. (5) Paroxysmal atrial fibrillation: Plan: - NSR here. - Continue Eliquis 5 mg twice daily, metoprolol 25 mg twice daily. (6) Essential hypertension: Plan: - Continue metoprolol as above, lisinopril 10 mg daily. (7) Hypothyroidism: Plan: - Continue levothyroxine 88 mcg daily. -TSH 1.66 on 11/28. (8) Vitamin D deficiency: Plan: - Continue vitamin D supplementation. Plan - Admit to med/surg. - SCDs and continue Eliquis for afib/DVT ppx. - Full Code. History of Present Illness Chief Complaint: generalized weakness and nausea since this morning Primary Care Provider: Mann Bright, AMAN Rafael Santos is a 76-year-old male with past medical history significant for hypertension, DM2 on insulin, CKD, paroxysmal A. fib on Eliquis, hypothyroidism, hyperlipidemia, BPH, and recurrent UTIs who presents today with nausea, stomachache and generalized weakness. He was admitted 11/26-11/30 for diarrheal illness and UTI. As he has had multiple cultures grow Pseudomonas but has always been asymptomatic and his presenting symptom on that admission was diarrhea, he was treated with a 3-day course of Zosyn and with supportive care for an E. coli gastroenteritis and discharged home feeling well on 11/30. Since discharge he had been feeling well up until this morning when he woke up and felt "not himself "noting he felt just a little weak and may be dizzy 2. He took his morning medications and proceeded with his morning, however upon ambulation to the bathroom began again to feel weak, nauseous and as if he might either vomit or have a bowel movement. He promptly called EMS for transportation to ED for further evaluation. No point did he passed out, vision loss, chest pain, palpitations, shortness of breath with this episode. He states he has felt this way previously with UTIs, he has no urinary symptoms but typically does not present with such. He has had no previous abdominal pain or diarrhea over the past few days. On presentation to the ED, is moderately hypertensive, however otherwise vital signs are within normal limits and stable. Urine is cloudy with nitrites, 3+ leukocyte Estrace, >30 WBCs, and 2+ bacteria. Labs otherwise significant for stable with an Hgb of 12.6, renal function at baseline with BUN 29, creatinine 2.08, his glucose 151. He is without electrolyte abnormalities or leukocytosis. Allergies Allergy/AdvReac Type Severity Reaction Status Date / Time ciprofloxacin [From Cipro] AdvReac Intermediate Upset Unverified 12/09/21 15:31 Stomach, Nausea, GI Discomfort Home Medications Medication Instructions Recorded Confirmed Type apixaban 5 mg tablet 5 mg PO BID 04/25/21 12/09/21 History cholecalciferol (vitamin D3) 25 25 mcg PO QAM 04/25/21 12/09/21 History mcg (1,000 unit) capsule folic acid 1 mg tablet 1 mg PO QAM 04/25/21 12/09/21 History levothyroxine 88 mcg capsule 88 mcg PO DAILYBB 04/25/21 12/09/21 History metoprolol succinate 25 mg 12.5 mg PO BID 05/05/21 12/09/21 History tablet,extended release 24 hr ferrous sulfate 325 mg (65 mg 325 mg PO QAM 06/30/21 12/09/21 History iron) tablet (FeroSul) gabapentin 100 mg capsule 100 mg PO QID PRN Nerve Pain 06/30/21 12/09/21 History trazodone 50 mg tablet 50 mg PO HS PRN Sleep 06/30/21 12/09/21 History lisinopril 10 mg tablet 10 mg PO DAILY #90 tabs 08/25/21 12/09/21 Rx insulin glargine 100 unit/mL (3 20 unit (0.2 mL) subcut BID #15 mL 11/30/21 12/09/21 Rx mL) subcutaneous pen (Lantus Solostar U-100 Insulin) Past Med/Surg History Medical History (Updated 12/09/21 @ 20:25 by Greta Cardenas PA-C) Age-related nuclear cataract, right eye Anemia due to chronic kidney disease Chronic kidney disease, stage 4 (severe) Stage 3b chronic kidney disease Vitamin D deficiency Surgical History (Updated 12/09/21 @ 20:20 by Greta Cardenas PA-C) No significant past surgical history Family History (Updated 12/09/21 @ 20:21 by Greta Cardenas PA-C) Other Family history non-contributory Social History Smoking Status: Never smoker Hx Alcohol Use: No Hx Substance Use: No Preferred Language: Kinyarwanda Communication Ability: Effective Ramp Service Man Required: No Beliefs That Will Affect Care: None marital status: Current Living Situation: Alone Current Living Situation Comment: lives alone is a studio apartment with 2 JERED Other Information That Helps Us Care for You: No Feels Safe at Home: Yes Safety Concerns: Feels Safe At This Time Assistive Devices: Cane and Walker Review of Systems Review of Systems: Constitutional: generalized weakness; no fever/chills, fatigue, myalgias, anorexia, night sweats Eyes: No diplopia, no worsening or blurred vision ENT: normal hearing, no trouble swallowing Respiratory: No cough, sputum, dyspnea at rest or on exertion Cardiovascular: No chest pain, tightness or palpitations Abdomen: nausea without vomiting, diarrhea, or constipation : Denies dysuria, hematuria, increased urgency/frequency, urinary retention Musculoskeletal: No joint pain, calf pain, swelling Neurologic: No weakness, numbness/tingling, or balance problems Psychiatric: No anxiety or depression Skin: No rash or itch Physical Exam Physical Exam: General: awake, alert, no apparent distress Head: Normocephalic, atraumatic ENT: PERRL, EOMI, no pharyngeal exudate, mucous membranes moist Chest: Clear to auscultation, on room air, no adventitious breath sounds Cardiac: Regular rate and rhythm, no murmur, no JVD, normal peripheral pulses, good capillary refill Abdominal: NABS x 4 quadrants, soft, nontender to palpation, no rebound, guard ing or tenderness Extremities: Normal inspection, no peripheral edema or erythema, calfs nontender to palpation Psych: Normal mood and affect Neuro: AAO x 3, strength intact bilaterally and rated 5/5, no motor deficits, speech is clear, no peripheral sensory deficits Skin: no rash or erythema Results & Data Results & Data ([facility]) Vital Signs (Past 12 Hours) Vital Signs Temp Pulse Pulse Resp BP BP Pulse Ox 12/09/21 19:00 65 19 169/86 H 99 12/09/21 17:00 61 20 162/74 H 99 12/09/21 15:30 68 18 189/74 H 100 12/09/21 14:46 35.8 C L 64 20 170/85 H 94 O2 Del Method 12/09/21 19:00 Room Air 12/09/21 17:00 Room Air 12/09/21 15:30 Room Air 12/09/21 14:46 Room Air Laboratory Results Abnormal lab results 12/09/21 12/09/21 12/09/21 Range/Units 16:22 16:22 16:34 RBC 4.24 L (4.63-6.08) M/uL Hgb 12.6 L (14.0-18.0) g/dl MCHC 31.0 L (32.0-36.0) g/dL RDW Std Deviation 52.3 H (36.4-46.3) fL RDW Coeff of Yolanda 14.9 H (11.5-14.5) % Neut # (Auto) 7.84 H (1.4-6.5) K/uL Lymph # (Auto) 0.75 L (1.2-3.4) K/uL Immature Gran # (Auto) 0.04 H (0.00-0.02) K/uL BUN 29 H (6-23) mg/dl Creatinine 2.08 H (0.6-1.4) mg/dl Glucose 151 H (70-99(Fasting)) mg/dl AST 11 L (13-39) U/L Urine Appearance Cloudy A (Clear) Urine Protein Trace H (Negative) Urine Glucose (UA) Trace H (Negative) Urine Blood 1+ H (Negative) Urine Nitrite Positive A (Negative) Ur Leukocyte Esterase 3+ H (Negative) Urine WBC (Auto) >30 H (0-5) /hpf U Epithel Cells (Auto) 5-10 H (0-5) /lpf Urine Bacteria (Auto) 2+ H (Negative) Diagnostic Findings Chest X-Ray 12/09/21 14:58 XR chest 1V portable CLINICAL HISTORY: illness TECHNIQUE: Single frontal radiograph of the chest was obtained. Comparison: Comparison is made to chest radiograph 11/27/[address] abdomen pelvis 11/27/2021 FINDINGS: No lines and tubes are seen. Cardiomegaly is noted. Calcified aortic knob is seen. Hazy opacity is again seen in the left lower lung. No evidence of pleural effusion or pneumothorax. IMPRESSION: 1. Hazy opacity in the left lower lung is nonspecific. It is favored to represent a component of atelectasis and prominent extrapleural fat, however superimposed aspiration and/or pneumonia cannot be excluded. 2. Stable cardiomegaly. ACT 112: Negative or not required by law. Electronically signed by: Moshe Rodrigez M.D. 12/09/2021 4:13 PM ECG Additional Comments: Sinus rhythm with 1st degree A-V block Nonspecific ST and T wave abnormality Abnormal ECG When compared with ECG of 27-NOV-2021 10:20. Code Status & VTE Plan Code Status Full Code. Supervising Physician Co-Signing Physician Notes Attending addendum: I have physically seen this patient, have supervised the JACQUELIN's activities, and agree with the H&P unless as otherwise noted. Assessment and Plan: Recurrent urinary tract infection/presumptive Pseudomonas- Recommend double coverage with Cipro IV and cefepime IV to prevent recurrences and resistance patterns Follow urine culture and sensitivity Control diabetes IV fluids as noted Diabetes mellitus- Check hemoglobin A1c Continue Lantus 20 units twice daily Placed on Accu-Cheks with sliding scale coverage Gabapentin as noted CKD stage IV- Address issues with recurrent UTI Follow serial BMP, magnesium and GFR levels IV fluids as noted Remaining orders and notations as noted Again recommend double coverage with IV antibiotics of 2 different classes to help prevent recurrences and colonizations PG Care Time/CCT Total # of Minutes Spent Total Time Spent with Patient: Total time spent is greater than 50% in coordination of care (as documented) at patient's floor/unit and/or counseling patient: Coding Level of Care Code 78267 Initial Inpt Care Lvl 3 Diagnoses Urinary tract infection N39.0 Hematuria presence: without hematuria Urinary tract infection type: site unspecified Diabetes E11.9 Chronic kidney disease, stage 4 (severe) N18.4 Anemia due to chronic kidney disease N18.9; D63.1 Paroxysmal atrial fibrillation I48.0 Essential hypertension I10 Hypothyroidism E03.9 Hypothyroidism type: unspecified Vitamin D deficiency E55.9 (1) Urinary tract infection Hematuria presence: without hematuria Urinary tract infection type: site unspecified Qualified Code(s): N39.0 - Urinary tract infection, site not specified (2) Hypothyroidism Hypothyroidism type: unspecified Qualified Code(s): E03.9 - Hypothyroidism, unspecified
[2021-12-09] MEDS ORDERED: CIPROFLOXACIN / D5W 400 MG/200 ML BAG IV STA (20:14)
[2021-12-09] MEDS ORDERED: PANTOprazole 40 MG TAB PO STA (20:14)
[2021-12-09] MEDS: LACTATED RINGER'S 1,000 ML IV SCH (20:55)
[2021-12-09] MEDS ORDERED: CARBOHYDRATES FOR HYPOGLYCEMIA PO PRN (21:54)
[2021-12-09] MEDS ORDERED: GLUCOSE 10 TAB/TUBE PO PRN (21:54)
[2021-12-09] MEDS ORDERED: ACETAMINOPHEN 325 MG TAB PO PRN (21:54)
[2021-12-09] MEDS ORDERED: GLUCOSE 40% GEL 15 GM TUBE PO PRN (21:54)
[2021-12-09] MEDS ORDERED: POLYETHYLENE (MIRALAX) 17 GM PACK PO PRN (21:54)
[2021-12-09] MEDS ORDERED: traZODone HCL 50 MG TAB PO PRN (21:54)
[2021-12-09] MEDS ORDERED: DEXTROSE 50% 50 ML SYRINGE IV PRN (21:54)
[2021-12-09] MEDS ORDERED: GLUCAGON FOR INJ 1 MG VIAL SQ PRN (21:54)
[2021-12-09] MEDS: CIPROFLOXACIN / D5W 400 MG/200 ML BAG IV SCH (22:14)
[2021-12-09] MEDS: INSULIN ASPART PER UNIT SC SCH (22:30)
[2021-12-09] MEDS: LANTUS PER UNIT CHARGE SQ SCH (22:45)
[2021-12-09] MEDS: METOPROLOL SUCC 25MG EXT REL TAB PO SCH (23:04)
[2021-12-09] MEDS: APIXABAN 5 MG TABLET PO SCH (23:05)
[2021-12-10] MEDS: LACTATED RINGER'S 1,000 ML IV SCH (02:58)
[2021-12-10] MEDS: CEFEPIME 2,000 MG in SYRINGE 0 ML IV SCH ×2 (06:04→17:36)
[2021-12-10] MEDS: LEVOTHYROXINE SODIUM 88 MCG TABLET PO SCH (06:04)
--- NOTE | 2021-12-10 06:10 | Electrocardiogram Report ---
Test Reason : Blood Pressure : / mmHG Vent. Rate : 066 BPM Atrial Rate : 066 BPM P-R Int : 266 ms QRS Dur : 112 ms QT Int : 420 ms P-R-T Axes : 087 -26 089 degrees QTc Int : 440 ms Sinus rhythm with 1st degree A-V block Nonspecific ST and T wave abnormality Abnormal ECG When compared with ECG of 27-NOV-2021 10:20, No significant change Confirmed by Rafael Hong ([id number]) on 12/10/2021 6:09:47 AM Referred By: REFERRED SELF Confirmed By:Rafael Hong
[2021-12-10 06:32] LABS: Basophils # (auto) 0.03 K/uL (0-0.2); Basophils % (auto) 0.4 %; Eosinophils # (auto) 0.14 K/uL (0-0.50); Hematocrit (blood only) 35.5 % (40.1-51.0); Hemoglobin 11.3 g/dl (14.0-18.0); Immature Granulocytes # (auto) 0.04 K/uL (0.00-0.02); Immature Granulocytes % (auto) 0.6 %; Lymphocytes # (auto) 1.01 K/uL (1.2-3.4); Lymphocytes % (auto) 14.1 %; Mean Corpuscular Hemoglobin 29.7 pg (25.0-34.0); Mean Corpuscular Hgb Conc 31.8 g/dL (32.0-36.0); Mean Corpuscular Volume 93.4 fL (80.0-100.0); Mean Platelet Volume 10.1 fL (9.4-12.4); Monocytes # (auto) 0.53 K/uL (0.24-0.82); Monocytes % (auto) 7.4 %; Neutrophils # (auto) 5.41 K/uL (1.4-6.5); Neutrophils % (auto) 75.5 %; Platelet Count 272 K/uL (130-400); RDW Coefficient of Variation 14.7 % (11.5-14.5); RDW Standard Deviation 50.3 fL (36.4-46.3); White Blood Count 7.16 K/ul (4.8-10.8)
[2021-12-10 07:06] LABS: BUN Creatinine Ratio 12.9 (10-20); Calcium 8.8 mg/dl (8.5-10.1); Creatinine Clr Calc Pharmacy 43.5 ml/min; Est GFR (African American) 36.3 ml/min; Est GFR (Non-African American) 31.3 ml/min
[2021-12-10] MEDS: LANTUS PER UNIT CHARGE SQ SCH ×2 (09:00→22:02)
[2021-12-10] MEDS: INSULIN ASPART PER UNIT SC SCH ×4 (09:00→22:02)
[2021-12-10] MEDS: FERROUS SULFATE 325 MG TAB PO SCH (09:02)
[2021-12-10] MEDS: FOLIC ACID 1 MG TAB PO SCH (09:02)
[2021-12-10] MEDS: CHOLECALCIFEROL 1,000 UNITS 25 MCG TAB PO SCH (09:02)
[2021-12-10] MEDS: APIXABAN 5 MG TABLET PO SCH ×2 (09:02→21:50)
[2021-12-10] MEDS: lisinopril 10 MG TAB PO SCH (09:02)
[2021-12-10] MEDS: METOPROLOL SUCC 25MG EXT REL TAB PO SCH ×2 (09:03→21:50)
[2021-12-10] MEDS: CIPROFLOXACIN / D5W 400 MG/200 ML BAG IV SCH (09:56)
[2021-12-10] MEDS: ONDANSETRON INJ 2 MG/ML 2 ML VIAL IV PRN (10:06)
[2021-12-10] MEDS: ADVANCED PROBIOTIC 1250 MG CAPSULE PO SCH (10:06)
[2021-12-10] MEDS ORDERED: PANTOprazole 40 MG in SYRINGE 0 ML IV SCH (11:00)
--- NOTE | 2021-12-10 23:29 | Hospitalist Progress Note ---
Date of Service December 10, 2021 Assessment & Plan (1) Nausea: Plan: post-prandial yesterday and today - about 2 hours following eating. has gallstones on CT - will obtain RUQ us to ensure no developing cholecystitis. could be related to UTI. could have diabetic gastroparesis. re-eval once RUQ us is back. of note - recent LFTs and lipase were wnl. (2) Urinary tract infection: Plan: Growing GNR. Can stop cipro. Cont cefepime. Await final culture. No typical UTI symptoms but diabetes could be masking them. May need VICTOR M - r/o prostatitis. Consider PSA. (3) Diabetes: Plan: HbA1c 10.1%. On basal-bolus insulin. Adjust as needed. (4) Anemia due to chronic kidney disease: Plan: H/H acceptable at this time. (5) Paroxysmal atrial fibrillation: Plan: Examines in NSR. Continue Eliquis 5 mg twice daily, metoprolol 12.5 mg twice daily. (6) Essential hypertension: Plan: Continue metoprolol as above, lisinopril 10 mg daily. Consider d/c of HEIDY due to CKD but trend Creatinine for now. (7) Hypothyroidism: Plan: Continue levothyroxine 88 mcg daily. TSH 1.66 on 11/28/21. (8) Vitamin D deficiency: Plan: Continue vitamin D supplementation. (9) Chronic renal failure, stage 3b: Plan: baseline CrCl 30-45 BMP in am for stability (10) Morbid obesity with BMI of 45.0-49.9, adult: Plan: BMI 45.5 Plan needs PT/OT - deconditioned - will order Admission and Anticipated Discharge Date Admission Date: December 09, 2021 Subjective pt states that about 2 hours after eating eggs/toure this am he had significant nausea no abd pain did not vomit zofran resolved the nausea he had similar symptoms at home the AM of admission ate ribs over the weekend without GI symptoms no further diarrhea but passing a lot of flatus no chronic upper or lower GI symptoms denies ANY UTI symptoms - no dysuria, no foul-smelling urine, no voiding issues frustrated he has been sick so many times recently Review of Systems Review of Systems: gen - no fevers or chills cv - no cp, no orthopnea pulm - no cough GI - no abd pain - no hematuria Physical Exam Physical Exam: gen - obese, NAD mouth - MMM neck - no JVD heart - RRR, s1 s2, no murmur lungs - CTA b/l abd - soft NT; bladder not palpable; mildly distended; no HSM; BS+ ext - no edema, pulses 2+ b/l psych - a/o x 3 skin - mild pallor Results & Data Results & Data ([facility]) Vital Signs (Past 12 Hours) Vital Signs Temp Pulse Resp BP BP Pulse Ox O2 Del Method 12/10/21 22:54 36.7 C 63 16 147/70 H 96 Room Air 12/10/21 21:33 63 161/86 H 12/10/21 14:38 36.9 C 60 18 132/74 100 Nasal Cannula O2 Flow Rate 12/10/21 22:54 12/10/21 21:33 12/10/21 14:38 2 Laboratory Results Laboratory Results - last 24 hr 12/10/21 12/10/21 12/10/21 06:11 06:11 08:02 WBC 7.16 RBC 3.80 L Hgb 11.3 L Hct 35.5 L MCV 93.4 MCH 29.7 MCHC 31.8 L RDW Std Deviation 50.3 H RDW Coeff of Yolanda 14.7 H Plt Count 272 MPV 10.1 Immature Gran % (Auto) 0.6 Neut % (Auto) 75.5 Lymph % (Auto) 14.1 [place] % (Auto) 7.4 Eos % (Auto) 2.0 Baso % (Auto) 0.4 Neut # (Auto) 5.41 Lymph # (Auto) 1.01 L [place] # (Auto) 0.53 Eos # (Auto) 0.14 Baso # (Auto) 0.03 Immature Gran # (Auto) 0.04 H Sodium 140 Potassium 4.0 Chloride 110 H Carbon Dioxide 24 Anion Gap 6 BUN 26 H Creatinine 2.01 H Est Cr Clr Drug Dosing 43.5 Est GFR ( Amer) 36.3 Est GFR (Non-Af Amer) 31.3 BUN/Creatinine Ratio 12.9 Glucose 122 H POC Glucose 135 H Calcium 8.8 12/10/21 12/10/21 12/10/21 12:21 17:02 20:43 WBC RBC Hgb Hct MCV MCH MCHC RDW Std Deviation RDW Coeff of Yolanda Plt Count MPV Immature Gran % (Auto) Neut % (Auto) Lymph % (Auto) [place] % (Auto) Eos % (Auto) Baso % (Auto) Neut # (Auto) Lymph # (Auto) [place] # (Auto) Eos # (Auto) Baso # (Auto) Immature Gran # (Auto) Sodium Potassium Chloride Carbon Dioxide Anion Gap BUN Creatinine Est Cr Clr Drug Dosing Est GFR ( Amer) Est GFR (Non-Af Amer) BUN/Creatinine Ratio Glucose POC Glucose 157 H 121 H 126 H Calcium PG Care Time/CCT Total # of Minutes Spent Total Time Spent with Patient: Total time spent is greater than 50% in coordination of care (as documented) at patient's floor/unit and/or counseling patient: Coding Level of Care Code 15610 Subseq Hosp Care Lvl 2 Diagnoses Nausea R11.0 Urinary tract infection N39.0 Hematuria presence: without hematuria Urinary tract infection type: site unspecified Diabetes E11.9 Anemia due to chronic kidney disease N18.9; D63.1 Paroxysmal atrial fibrillation I48.0 Essential hypertension I10 Hypothyroidism E03.9 Hypothyroidism type: unspecified Vitamin D deficiency E55.9 Chronic renal failure, stage 3b N18.32 Morbid obesity with BMI of 45.0-49.9, adult E66.01; Z68.42 (1) Urinary tract infection Hematuria presence: without hematuria Urinary tract infection type: site unspecified Qualified Code(s): N39.0 - Urinary tract infection, site not specified (2) Hypothyroidism Hypothyroidism type: unspecified Qualified Code(s): E03.9 - Hypothyroidism, unspecified
[2021-12-11] MEDS: CEFEPIME 2,000 MG in SYRINGE 0 ML IV SCH ×2 (05:33→17:11)
[2021-12-11] MEDS: GABAPENTIN 100 MG CAP PO PRN (06:12)
[2021-12-11] MEDS: LEVOTHYROXINE SODIUM 88 MCG TABLET PO SCH (06:12)
--- NOTE | 2021-12-11 07:30 | Ultrasound Report ---
ULTRASOUND RIGHT UPPER QUADRANT ABDOMEN CLINICAL HISTORY: Nausea. Cholelithiasis. COMPARISON STUDY: Abdominal CT dated 11/27/2021 TECHNIQUE: Real-time, grayscale, and color flow sonography of the right upper quadrant of the abdomen was performed. Images are reviewed in the transverse and longitudinal planes. FINDINGS: Liver: The liver is normal in size and demonstrates heterogeneously increased echotexture indicating steatosis. Note that this degrades acoustic penetration of the liver. There is no intrahepatic biliar y ductal dilatation. The main portal vein is patent. Gallbladder: The gallbladder is filled with stones and sludge. There is no gallbladder wall thickenin g or pericholecystic fluid. A sonographic Balbuena's sign is reportedly absent. The common bile duct me asures up to 0.4 cm in diameter. Pancreas: Nonvisualized due to overlying bowel gas. Right kidney: Survey images of the right kidney demonstrate cortical atrophy and increased echotextur e indicating medical renal disease. There is no hydronephrosis. Ascites: None. IMPRESSION: 1. The gallbladder is filled with stones and sludge, with no sonographic evidence of acute cholecysti tis. If there is strong clinical concern for acute cholecystitis a nuclear hepatobiliary scan should be considered. 2. There is no intra or extrahepatic biliary ductal dilatation. 3. Hepatic steatosis. 4. Nonvisualization of the pancreas. ACT 112: Negative or not required by law. Electronically signed by: Adrian Stephens M.D. 12/11/2021 7:28 AM
[2021-12-11 07:37] LABS: Albumin Globulin Ratio 0.9 (0.9-2); Albumin Level 3.1 gm/dl (3.4-5.0); BUN Creatinine Ratio 11.6 (10-20); Bilirubin,Total 0.5 mg/dl (0.2-1.0); Calcium 9.1 mg/dl (8.5-10.1); Creatinine Clr Calc Pharmacy 36.1 ml/min; Globulin 3.5 gm/dl (2.5-4.0); Total Protein 6.6 gm/dl (6.0-8.3)
[2021-12-11] MEDS: lisinopril 10 MG TAB PO SCH (08:29)
[2021-12-11] MEDS: ADVANCED PROBIOTIC 1250 MG CAPSULE PO SCH (08:29)
[2021-12-11] MEDS: FOLIC ACID 1 MG TAB PO SCH (08:29)
[2021-12-11] MEDS: CHOLECALCIFEROL 1,000 UNITS 25 MCG TAB PO SCH (08:29)
[2021-12-11] MEDS: FERROUS SULFATE 325 MG TAB PO SCH (08:30)
[2021-12-11] MEDS: APIXABAN 5 MG TABLET PO SCH ×2 (08:30→21:26)
[2021-12-11] MEDS: METOPROLOL SUCC 25MG EXT REL TAB PO SCH ×2 (08:30→21:27)
[2021-12-11] MEDS: INSULIN ASPART PER UNIT SC SCH ×4 (08:38→20:46)
[2021-12-11] MEDS: LANTUS PER UNIT CHARGE SQ SCH ×2 (08:39→21:26)
[2021-12-11] MEDS: PANTOprazole 40 MG TAB PO SCH (10:40)
[2021-12-11] MEDS: ONDANSETRON INJ 2 MG/ML 2 ML VIAL IV PRN (10:42)
--- NOTE | 2021-12-11 21:44 | Hospitalist Progress Note ---
Date of Service December 11, 2021 Assessment & Plan (1) Nausea: Plan: post-prandial nausea continues - still about 2 hours following eating. gallstones on CT and RUQ us but no radiographic signs of cholecystitis. LFTs/lipase wnl. could be related to UTI. could have diabetic gastroparesis. could be related to constipation or an ileus (no stool in several days). obtain KUB x-ray. if unremarkable consider gastric emptying study. consider GI consult. cont PPI. (2) Urinary tract infection: Plan: 2nd pseudomonas (again). Resistant to quinolones. Cont cefepime. No typical UTI symptoms but diabetes could be masking them. May need VICTOR M - r/o prostatitis. Consider PSA. (3) Diabetes: Plan: HbA1c 10.1%. On basal-bolus insulin. Controlled at this time. (4) Anemia due to chronic kidney disease: Plan: H/H acceptable at this time. (5) Paroxysmal atrial fibrillation: Plan: Examines in NSR. Continue Eliquis 5 mg twice daily, metoprolol 12.5 mg twice daily. (6) Essential hypertension: Plan: Continue metoprolol but hold HEIDY (7) Hypothyroidism: Plan: Continue levothyroxine 88 mcg daily. TSH 1.66 on 11/28/21. (8) Vitamin D deficiency: Plan: Continue vitamin D supplementation. (9) Chronic renal failure, stage 3b: Plan: baseline CrCl 30-45 BMP in am for stability (10) Morbid obesity with BMI of 45.0-49.9, adult: Plan: BMI 45.5 Plan needs PT/OT Admission and Anticipated Discharge Date Admission Date: December 09, 2021 Subjective had another episode of severe nausea about 2 hours after eating breakfast today did not vomit needed zofran then symptoms resolved tolerated lunch no abd pain no chest symptoms no LUTS feels overall quite good despite the nausea ambulating to bathroom no stool in several days Review of Systems Review of Systems: gen - no fevers cv - no chest pain pulm - no cough, no dyspnea GI - no vomiting; no blood per rectum Physical Exam Physical Exam: gen - obese, NAD mouth - MMM neck - no JVD heart - RRR, s1 s2, no murmur lungs - CTA b/l abd - soft NT; mildly distended still; no HSM; BS+ ext - no edema, pulses 2+ b/l psych - a/o x 3 Results & Data Results & Data ([facility]) Vital Signs (Past 12 Hours) Vital Signs Temp Pulse Resp BP BP Pulse Ox O2 Del Method 12/11/21 21:01 36.9 C 78 18 147/70 H 91 12/11/21 15:50 36.4 C L 59 L 18 177/76 H 98 Room Air O2 Flow Rate 12/11/21 21:01 12/11/21 15:50 3.5 Laboratory Results Laboratory Results - last 24 hr 12/11/21 12/11/21 12/11/21 06:46 08:17 12:08 Sodium 139 Potassium 4.0 Chloride 109 H Carbon Dioxide 23 Anion Gap 7 BUN 28 H Creatinine 2.42 H D Est Cr Clr Drug Dosing 36.1 Est GFR ( Amer) 29.0 Est GFR (Non-Af Amer) 25.0 BUN/Creatinine Ratio 11.6 Glucose 108 H POC Glucose 117 H 126 H Calcium 9.1 Total Bilirubin 0.5 AST 9 L ALT 11 Alkaline Phosphatase 52 Total Protein 6.6 Albumin 3.1 L Globulin 3.5 Albumin/Globulin Ratio 0.9 12/11/21 12/11/21 17:11 20:28 Sodium Potassium Chloride Carbon Dioxide Anion Gap BUN Creatinine Est Cr Clr Drug Dosing Est GFR ( Amer) Est GFR (Non-Af Amer) BUN/Creatinine Ratio Glucose POC Glucose 115 H 131 H Calcium Total Bilirubin AST ALT Alkaline Phosphatase Total Protein Albumin Globulin Albumin/Globulin Ratio PG Care Time/CCT Total # of Minutes Spent Total Time Spent with Patient: Total time spent is greater than 50% in coordination of care (as documented) at patient's floor/unit and/or counseling patient: Coding Level of Care Code 89317 Subseq Hosp Care Lvl 2 Diagnoses Nausea R11.0 Urinary tract infection N39.0 Hematuria presence: without hematuria Urinary tract infection type: site unspecified Diabetes E11.9 Anemia due to chronic kidney disease N18.9; D63.1 Paroxysmal atrial fibrillation I48.0 Essential hypertension I10 Hypothyroidism E03.9 Hypothyroidism type: unspecified Vitamin D deficiency E55.9 Chronic renal failure, stage 3b N18.32 Morbid obesity with BMI of 45.0-49.9, adult E66.01; Z68.42 (1) Urinary tract infection Hematuria presence: without hematuria Urinary tract infection type: site unspecified Qualified Code(s): N39.0 - Urinary tract infection, site not specified (2) Hypothyroidism Hypothyroidism type: unspecified Qualified Code(s): E03.9 - Hypothyroidism, unspecified
[2021-12-12] MEDS: LEVOTHYROXINE SODIUM 88 MCG TABLET PO SCH (05:49)
[2021-12-12] MEDS: CEFEPIME 2,000 MG in SYRINGE 0 ML IV SCH ×2 (05:49→17:26)
[2021-12-12 07:28] LABS: BUN Creatinine Ratio 11.9 (10-20); Calcium 8.9 mg/dl (8.5-10.1); Creatinine Clr Calc Pharmacy 31.4 ml/min; Est GFR (African American) 24.5 ml/min; Est GFR (Non-African American) 21.1 ml/min
[2021-12-12] MEDS: INSULIN ASPART PER UNIT SC SCH ×4 (09:51→21:19)
[2021-12-12] MEDS: FERROUS SULFATE 325 MG TAB PO SCH (09:53)
[2021-12-12] MEDS: FOLIC ACID 1 MG TAB PO SCH (09:53)
[2021-12-12] MEDS: ADVANCED PROBIOTIC 1250 MG CAPSULE PO SCH (09:53)
[2021-12-12] MEDS: PANTOprazole 40 MG TAB PO SCH (09:53)
[2021-12-12] MEDS: CHOLECALCIFEROL 1,000 UNITS 25 MCG TAB PO SCH (09:53)
[2021-12-12] MEDS: APIXABAN 5 MG TABLET PO SCH ×2 (09:53→20:44)
[2021-12-12] MEDS: METOPROLOL SUCC 25MG EXT REL TAB PO SCH ×2 (09:53→20:45)
[2021-12-12] MEDS: LANTUS PER UNIT CHARGE SQ SCH ×2 (09:55→21:20)
--- NOTE | 2021-12-12 10:12 | XRay Report ---
KUB CLINICAL HISTORY: distension, constipation; eval ileus/constipation COMPARISON STUDY: CT of the abdomen and pelvis November 27, 2021. FINDINGS: Bowel gas pattern is normal. There is no radiographic evidence for a bowel obstruction. Mod erate amount of stool is present. Pelvic calcifications reflect phleboliths. No urinary calculi are i dentified. IMPRESSION: 1. No evidence for a bowel obstruction. 2. Moderate amount of stool within the colon and rectum. ACT 112: Negative or not required by law. Electronically signed by: Tyree Hall M.D. 12/12/2021 10:11 AM
[2021-12-12] MEDS: ONDANSETRON INJ 2 MG/ML 2 ML VIAL IV PRN (11:45)
[2021-12-12] MEDS ORDERED: bisacodyL 10 MG SUPP PR PRN (17:28)
[2021-12-12] MEDS ORDERED: bisacodyL 5 MG TABEC PO ONE (17:28)
[2021-12-12] MEDS: POLYETHYLENE (MIRALAX) 17 GM PACK PO SCH (18:12)
--- NOTE | 2021-12-12 20:32 | Hospitalist Progress Note ---
Date of Service December 12, 2021 Assessment & Plan (1) Nausea: Plan: post-prandial nausea continues - still about 2 hours following eating. although it was not as severe this am. gallstones on CT and RUQ us but no radiographic signs of cholecystitis. LFTs/lipase wnl. could be related to UTI. could have diabetic gastroparesis. could be related to constipation (no stool in several days). KUB x-ray with moderate fecal loading. give PO constipation meds today. he declined suppository. cont PPI. consider gastric emptying study if nausea continues despite resolution of UTI and constipation. (2) Urinary tract infection: Plan: 2nd pseudomonas. Resistant to quinolones. Cont cefepime. No typical UTI symptoms but diabetes could be masking them. Check VICTOR M tomorrow - r/o prostatitis. Check PSA in am. (3) Diabetes: Plan: HbA1c 10.1%. On basal-bolus insulin. Controlled at this time. (4) Anemia due to chronic kidney disease: Plan: H/H remain acceptable. (5) Paroxysmal atrial fibrillation: Plan: Examines in NSR. Continue Eliquis 5 mg twice daily, metoprolol 12.5 mg twice daily. (6) Essential hypertension: Plan: Continue metoprolol but hold HEIDY (7) Hypothyroidism: Plan: Continue levothyroxine 88 mcg daily. TSH 1.66 on 11/28/21. (8) Vitamin D deficiency: Plan: Continue vitamin D supplementation. (9) Chronic renal failure, stage 3b: Plan: baseline CrCl 30-45 BMP in am for stability (10) Morbid obesity with BMI of 45.0-49.9, adult: Plan: BMI 45.5 (11) BRETT (acute kidney injury): Plan: cause uncertain. no LUTS. looks euvolemic. due to HEIDY? recent CT abd/pelvis with no urinary obstruction, hydro, etc. repeat BMP am. will need additional w/u if creatinine worsens. Plan cont PT/OT spoke with pt's daughter - update given progressing Admission and Anticipated Discharge Date Admission Date: December 09, 2021 Subjective overall good day eating 100% of meals did need zofran mid-morning, but nausea was not as bad as previous still no BM - last was 3+ days ago no abd pain no respiratory issues ambulating to bathroom had shower finally and it felt good requests that I call his daughter to give update Review of Systems Review of Systems: gen - no fevers cv - no chest pain, no orthopnea pulm - wears 4 L NC O2 at HS only; no cough or dyspnea however GI - see HPI - no LUTS Physical Exam Physical Exam: gen - obese, NAD, looks good; hoarse voice mouth - MMM neck - no JVD heart - RRR, s1 s2, no murmur lungs - CTA b/l abd - soft NT; mildly distended still and tympanic to percussion; no HSM; BS+ ext - no edema, pulses 2+ b/l psych - a/o x 3 skin - scarring on arms - from prior pastrana? Results & Data Results & Data ([facility]) Vital Signs (Past 12 Hours) Vital Signs Temp Pulse Pulse Resp BP BP Pulse Ox 12/12/21 07:30 37 C 59 L 18 108/62 100 12/11/21 21:20 12/11/21 21:01 36.9 C 78 18 147/70 H 91 O2 Del Method O2 Flow Rate 12/12/21 07:30 Nasal Cannula 4 12/11/21 21:20 Room Air, Nasal Cannula 4 12/11/21 21:01 Intake and Output 12/12/21 12/12/21 12/12/21 06:59 14:59 22:59 Intake Total 240 / 240 Balance 240 / 240 Intake: Oral 240 / 240 Other: # Unmeasured Voids 1 Laboratory Results Laboratory Results - last 24 hr 12/12/21 12/12/21 12/12/21 06:30 06:30 08:11 Sodium 138 Potassium 4.0 Chloride 109 H Carbon Dioxide 23 Anion Gap 6 BUN 33 H Creatinine 2.78 H D Est Cr Clr Drug Dosing 31.4 Est GFR ( Amer) 24.5 Est GFR (Non-Af Amer) 21.1 BUN/Creatinine Ratio 11.9 Glucose 91 POC Glucose 95 Calcium 8.9 Lipase 25 12/12/21 12/12/21 11:51 17:14 Sodium Potassium Chloride Carbon Dioxide Anion Gap BUN Creatinine Est Cr Clr Drug Dosing Est GFR ( Amer) Est GFR (Non-Af Amer) BUN/Creatinine Ratio Glucose POC Glucose 128 H 117 H Calcium Lipase PG Care Time/CCT Total # of Minutes Spent Total Time Spent with Patient: Total time spent is greater than 50% in coordination of care (as documented) at patient's floor/unit and/or counseling patient: Coding Level of Care Code 41970 Subseq Hosp Care Lvl 2 Diagnoses Nausea R11.0 Urinary tract infection N39.0 Hematuria presence: without hematuria Urinary tract infection type: site unspecified Diabetes E11.9 Anemia due to chronic kidney disease N18.9; D63.1 Paroxysmal atrial fibrillation I48.0 Essential hypertension I10 Hypothyroidism E03.9 Hypothyroidism type: unspecified Vitamin D deficiency E55.9 Chronic renal failure, stage 3b N18.32 Morbid obesity with BMI of 45.0-49.9, adult E66.01; Z68.42 BRETT (acute kidney injury) N17.9 (1) Urinary tract infection Hematuria presence: without hematuria Urinary tract infection type: site unspecified Qualified Code(s): N39.0 - Urinary tract infection, site not specified (2) Hypothyroidism Hypothyroidism type: unspecified Qualified Code(s): E03.9 - Hypothyroidism, unspecified
[2021-12-13] MEDS: ONDANSETRON INJ 2 MG/ML 2 ML VIAL IV PRN (02:08)
[2021-12-13] MEDS: LEVOTHYROXINE SODIUM 88 MCG TABLET PO SCH (05:57)
[2021-12-13] MEDS: CEFEPIME 2,000 MG in SYRINGE 0 ML IV SCH ×2 (05:57→17:38)
[2021-12-13 06:38] LABS: Calcium 8.9 mg/dl (8.5-10.1); Creatinine Clr Calc Pharmacy 31.6 ml/min; Est GFR (African American) 24.6 ml/min; Est GFR (Non-African American) 21.2 ml/min; Potassium 4.2 mmol/L (3.5-5.1)
[2021-12-13] MEDS: CHOLECALCIFEROL 1,000 UNITS 25 MCG TAB PO SCH (08:50)
[2021-12-13] MEDS: FERROUS SULFATE 325 MG TAB PO SCH (08:50)
[2021-12-13] MEDS: FOLIC ACID 1 MG TAB PO SCH (08:50)
[2021-12-13] MEDS: APIXABAN 5 MG TABLET PO SCH ×2 (08:50→20:31)
[2021-12-13] MEDS: ADVANCED PROBIOTIC 1250 MG CAPSULE PO SCH (08:50)
[2021-12-13] MEDS: METOPROLOL SUCC 25MG EXT REL TAB PO SCH ×2 (08:50→20:30)
[2021-12-13] MEDS: PANTOprazole 40 MG TAB PO SCH (08:51)
[2021-12-13] MEDS: POLYETHYLENE (MIRALAX) 17 GM PACK PO SCH (08:51)
[2021-12-13] MEDS: LANTUS PER UNIT CHARGE SQ SCH ×2 (08:51→20:34)
[2021-12-13] MEDS: INSULIN ASPART PER UNIT SC SCH ×4 (08:51→20:31)
[2021-12-13] MEDS ORDERED: LACTULOSE SYRUP 30 GM/45 ML UDP PO STA (13:32)
--- NOTE | 2021-12-13 20:21 | Hospitalist Progress Note ---
Date of Service December 13, 2021 Assessment & Plan (1) Nausea: Plan: improving - 2nd to UTI?? additional w/u while here --- gallstones on CT and RUQ us but NO radiographic signs of cholecystitis. LFTs/lipase wnl. if not UTI-related he could have diabetic gastroparesis. could be related to constipation. cont empiric PPI (was not on such at home). consider gastric emptying study if nausea continues despite resolution of UTI and constipation. (2) Urinary tract infection: Plan: 2nd pseudomonas. Resistant to quinolones. Cont cefepime. No typical UTI symptoms but diabetes could be masking them. PSA very low making prostatitis unlikely (I will stay perform VICTOR M, however, to be complete). Today is day #4 of cefepime. If no prostatitis plan 7 days of cefepime. (3) Diabetes: Plan: HbA1c 10.1%. On basal-bolus insulin. Controlled at this time. (4) Anemia due to chronic kidney disease: Plan: H/H remain acceptable. (5) Paroxysmal atrial fibrillation: Plan: Examines in NSR. Continue Eliquis 5 mg twice daily Continue metoprolol 12.5 mg twice daily. (6) Essential hypertension: Plan: Continue metoprolol but hold HEIDY due to renal issues. (7) Hypothyroidism: Plan: Continue levothyroxine 88 mcg daily. TSH 1.66 on 11/28/21. (8) Vitamin D deficiency: Plan: Continue vitamin D supplementation. (9) Chronic renal failure, stage 3b: Plan: baseline CrCl 30-45 BMP in am for stability (10) Morbid obesity with BMI of 45.0-49.9, adult: Plan: BMI 45.5 (11) BRETT (acute kidney injury): Plan: cause uncertain. no LUTS. looks euvolemic. due to HEIDY? HEIDY placed on hold. recent CT abd/pelvis with no urinary obstruction, hydro, etc. repeat BMP am. will need additional w/u if creatinine worsens. Plan cont PT/OT spoke with pt's daughter yesterday - update given progressing Admission and Anticipated Discharge Date Admission Date: December 09, 2021 Subjective patient states that about 0200 he awoke with nausea never had emesis went to the bathroom to void; did not have a bowel movement no abd pain no diaphoresis no chest pain no dyspnea or ROMERO nausea self-resolved no nausea after any meal today eating 100% of meals FINALLY had a very firm, hard BM today Review of Systems Review of Systems: gen - no fevers or chills cv - no cp, no orthopnea pulm - no cough, dyspnea or ROMERO GI - see HPI - no LUTs or dysuria Physical Exam Physical Exam: gen - obese, NAD, looks good; hoarse voice (chronic, for years) mouth - MMM neck - no JVD heart - RRR, s1 s2, no murmur lungs - CTA b/l abd - soft NT; still mildly distended still; no HSM; BS+ ext - no edema, pulses 2+ b/l psych - a/o x 3 skin - scarring on arms from prior pastrana Results & Data Results & Data ([facility]) Vital Signs (Past 12 Hours) Vital Signs Temp Pulse Pulse Pulse Resp BP Pulse Ox 12/13/21 07:55 12/13/21 07:30 36.4 C L 62 18 130/73 99 12/12/21 22:46 37.0 C 63 18 155/90 H 100 12/12/21 20:49 75 145/63 H 99 O2 Del Method O2 Flow Rate 12/13/21 07:55 Nasal Cannula 2 12/13/21 07:30 Nasal Cannula 4 12/12/21 22:46 Nasal Cannula 4 12/12/21 20:49 Nasal Cannula 4 Intake and Output 12/13/21 12/13/21 12/13/21 06:59 14:59 22:59 Intake Total 250 / 990 600 / 600 Balance 250 / 990 600 / 600 Intake: Oral 250 / 990 600 / 600 Other: # Unmeasured Voids 1 Laboratory Results Laboratory Results - last 24 hr 12/12/21 12/13/21 12/13/21 20:49 05:50 05:50 Sodium 139 Potassium 4.2 Chloride 108 H Carbon Dioxide 24 Anion Gap 7 BUN 36 H Creatinine 2.77 H Est Cr Clr Drug Dosing 31.6 Est GFR ( Amer) 24.6 Est GFR (Non-Af Amer) 21.2 BUN/Creatinine Ratio 13.0 Glucose 95 POC Glucose 127 H Calcium 8.9 Prostate Specific Ag 0.266 12/13/21 12/13/21 12/13/21 08:02 12:17 17:02 Sodium Potassium Chloride Carbon Dioxide Anion Gap BUN Creatinine Est Cr Clr Drug Dosing Est GFR ( Amer) Est GFR (Non-Af Amer) BUN/Creatinine Ratio Glucose POC Glucose 94 88 76 Calcium Prostate Specific Ag PG Care Time/CCT Total # of Minutes Spent Total Time Spent with Patient: Total time spent is greater than 50% in coordination of care (as documented) at patient's floor/unit and/or counseling patient: Coding Level of Care Code 67512 Subseq Hosp Care Lvl 2 Diagnoses Nausea R11.0 Urinary tract infection N39.0 Hematuria presence: without hematuria Urinary tract infection type: site unspecified Diabetes E11.9 Anemia due to chronic kidney disease N18.9; D63.1 Paroxysmal atrial fibrillation I48.0 Essential hypertension I10 Hypothyroidism E03.9 Hypothyroidism type: unspecified Vitamin D deficiency E55.9 Chronic renal failure, stage 3b N18.32 Morbid obesity with BMI of 45.0-49.9, adult E66.01; Z68.42 BRETT (acute kidney injury) N17.9 (1) Urinary tract infection Hematuria presence: without hematuria Urinary tract infection type: site unspecified Qualified Code(s): N39.0 - Urinary tract infection, site not specified (2) Hypothyroidism Hypothyroidism type: unspecified Qualified Code(s): E03.9 - Hypothyroidism, unspecified
[2021-12-14] MEDS: CEFEPIME 2,000 MG in SYRINGE 0 ML IV SCH ×2 (06:14→17:22)
[2021-12-14] MEDS: LEVOTHYROXINE SODIUM 88 MCG TABLET PO SCH (06:15)
[2021-12-14] MEDS: GABAPENTIN 100 MG CAP PO PRN (07:53)
[2021-12-14] MEDS: PANTOprazole 40 MG TAB PO SCH (07:53)
[2021-12-14] MEDS: ADVANCED PROBIOTIC 1250 MG CAPSULE PO SCH (07:53)
[2021-12-14] MEDS: FOLIC ACID 1 MG TAB PO SCH (07:53)
[2021-12-14] MEDS: CHOLECALCIFEROL 1,000 UNITS 25 MCG TAB PO SCH (07:53)
[2021-12-14] MEDS: METOPROLOL SUCC 25MG EXT REL TAB PO SCH ×2 (07:54→20:39)
[2021-12-14] MEDS: FERROUS SULFATE 325 MG TAB PO SCH (07:54)
[2021-12-14] MEDS: APIXABAN 5 MG TABLET PO SCH ×2 (07:54→20:39)
[2021-12-14] MEDS: POLYETHYLENE (MIRALAX) 17 GM PACK PO SCH (07:57)
[2021-12-14 08:21] LABS: Basophils # (auto) 0.05 K/uL (0-0.2); Basophils % (auto) 0.6 %; Eosinophils # (auto) 0.17 K/uL (0-0.50); Eosinophils % (auto) 1.9 %; Hematocrit (blood only) 35.7 % (40.1-51.0); Hemoglobin 11.2 g/dl (14.0-18.0); Immature Granulocytes # (auto) 0.04 K/uL (0.00-0.02); Immature Granulocytes % (auto) 0.4 %; Lymphocytes # (auto) 0.99 K/uL (1.2-3.4); Mean Corpuscular Hemoglobin 29.6 pg (25.0-34.0); Mean Corpuscular Hgb Conc 31.4 g/dL (32.0-36.0); Mean Corpuscular Volume 94.2 fL (80.0-100.0); Mean Platelet Volume 10.8 fL (9.4-12.4); Monocytes # (auto) 0.68 K/uL (0.24-0.82); Monocytes % (auto) 7.5 %; Neutrophils # (auto) 7.11 K/uL (1.4-6.5); Neutrophils % (auto) 78.6 %; Platelet Count 235 K/uL (130-400); RDW Coefficient of Variation 15.3 % (11.5-14.5); RDW Standard Deviation 52.7 fL (36.4-46.3); Red Blood Count 3.79 M/uL (4.63-6.08); White Blood Count 9.04 K/ul (4.8-10.8)
[2021-12-14] MEDS: LANTUS PER UNIT CHARGE SQ SCH ×2 (08:40→20:45)
[2021-12-14] MEDS: INSULIN ASPART PER UNIT SC SCH ×4 (08:41→20:45)
[2021-12-14 08:47] LABS: Creatinine Clr Calc Pharmacy 32.4 ml/min; Est GFR (African American) 25.4 ml/min; Est GFR (Non-African American) 21.9 ml/min
[2021-12-14 08:52] LABS: Anion Gap 7 (3-11); BUN Creatinine Ratio 14.4 (10-20); Blood Urea Nitrogen 35 mg/dl (6-23); Calcium 8.1 mg/dl (8.5-10.1); Carbon Dioxide 19 mmol/L (21-32); Chloride 112 mmol/L (98-107); Est GFR (African American) 28.8 ml/min; Est GFR (Non-African American) 24.9 ml/min; Glucose 64 mg/dl (70-99(Fasting)); Sodium 138 mmol/L (136-145)
[2021-12-14] MEDS: SENNA 8.6 MG TAB PO SCH (12:35)
[2021-12-14] MEDS ORDERED: LACTULOSE SYRUP 30 GM/45 ML UDP PO STA (14:12)
[2021-12-14] MEDS: ONDANSETRON INJ 2 MG/ML 2 ML VIAL IV PRN (16:09)
--- NOTE | 2021-12-14 21:04 | Hospitalist Progress Note ---
Date of Service December 14, 2021 Assessment & Plan (1) Nausea: Plan: resolved - 2nd to UTI?? can't rule out constipation contributing. can't rule out diabetic gastroparesis contributing. additional w/u while here --- gallstones on CT and RUQ us but NO radiographic s igns of cholecystitis. LFTs/lipase wnl. cont empiric PPI (was not on such at home). consider gastric emptying study if nausea continues despite resolution of UTI and constipation. (2) Urinary tract infection: Plan: 2nd pseudomonas. Resistant to quinolones. Cont cefepime. No typical UTI symptoms but diabetes could be masking them. PSA very low making prostatitis unlikely and limited VICTOR M Today without prostatitis findings (had no tenderness, prostate not boggy, etc). Today is day #5-6 of cefepime. Plan 7 days of cefepime - last dose would be AM of 12/16/21. (3) Diabetes: Plan: HbA1c 10.1%. On basal-bolus insulin. Tightly Controlled at this time. I would lower lantus to 15 units BID. (4) Anemia due to chronic kidney disease: Plan: H/H remain acceptable. (5) Paroxysmal atrial fibrillation: Plan: Examines in NSR. Continue Eliquis 5 mg twice daily Continue metoprolol 12.5 mg twice daily. (6) Essential hypertension: Plan: Continue metoprolol but hold HEIDY due to CKD. (7) Hypothyroidism: Plan: Continue levothyroxine 88 mcg daily. TSH 1.66 on 11/28/21. (8) Vitamin D deficiency: Plan: Continue vitamin D supplementation. (9) Chronic renal failure, stage 3b: Plan: baseline CrCl 30-40 BMP in am for stability (10) Morbid obesity with BMI of 45.0-49.9, adult: Plan: BMI 45.5 (11) BRETT (acute kidney injury): Plan: cause uncertain. no LUTS. looks euvolemic. due to HEIDY? HEIDY placed on hold. recent CT abd/pelvis with no urinary obstruction, hydro, etc. repeat BMP am. (12) Constipation: Plan: schedule senna schedule miralax give lactulose 30gm x 1 needs more mobility/walking Plan cont PT/OT spoke with pt's daughter on Wednesday- update given progressing anticipate d/c home on Saturday 12/16 Admission and Anticipated Discharge Date Admission Date: December 09, 2021 Subjective no new issues or complaints NO NAUSEA OVERNIGHT or today no vomiting no stomach pain no dyspepsia only 1 small hard/firm BM yesterday none since staff report he doesn't like to take the constipation aids - needs encouragement eating 100% of meals Review of Systems Review of Systems: gen - no fever cv - no cp, no orthopnea gi - no abd pain; some bloating gu - no LUTS Physical Exam Physical Exam: gen - obese, NAD, looks good HENT - hoarse voice (chronic, for years); mouth - MMM; no thrush neck - no JVD heart - RRR, s1 s2, no murmur lungs - CTA b/l abd - soft NT; still mildly distended still; no HSM; BS+ ext - no edema, pulses 2+ b/l psych - a/o x 3 skin - scarring on arms from prior pastrana VICTOR M - FIRM, HARD pellet stool sitting at anus even before I attempted VICTOR M; I removed this piece of stool; very challenging VICTOR M - only bottom most portion of prostate felt; no nodules in this portion but not boggy; no rectal masses; no gross blood Results & Data Results & Data ([facility]) Vital Signs (Past 12 Hours) Vital Signs Temp Pulse Pulse Resp BP BP Pulse Ox 12/14/21 20:38 57 L 153/87 H 12/14/21 16:13 36.5 C 72 16 134/60 97 O2 Del Method 12/14/21 20:38 12/14/21 16:13 Room Air Laboratory Results Laboratory Results - last 24 hr 12/14/21 12/14/21 12/14/21 07:55 07:58 07:58 WBC 9.04 RBC 3.79 L Hgb 11.2 L Hct 35.7 L MCV 94.2 MCH 29.6 MCHC 31.4 L RDW Std Deviation 52.7 H RDW Coeff of Yolanda 15.3 H Plt Count 235 MPV 10.8 Immature Gran % (Auto) 0.4 Neut % (Auto) 78.6 Lymph % (Auto) 11.0 [place] % (Auto) 7.5 Eos % (Auto) 1.9 Baso % (Auto) 0.6 Neut # (Auto) 7.11 H Lymph # (Auto) 0.99 L [place] # (Auto) 0.68 Eos # (Auto) 0.17 Baso # (Auto) 0.05 Immature Gran # (Auto) 0.04 H Sodium Potassium Chloride Carbon Dioxide Anion Gap BUN Creatinine 2.70 H Est Cr Clr Drug Dosing 32.4 Est GFR ( Amer) 25.4 Est GFR (Non-Af Amer) 21.9 BUN/Creatinine Ratio Glucose POC Glucose 81 Calcium 12/14/21 12/14/21 12/14/21 07:58 09:14 11:51 WBC RBC Hgb Hct MCV MCH MCHC RDW Std Deviation RDW Coeff of Yolanda Plt Count MPV Immature Gran % (Auto) Neut % (Auto) Lymph % (Auto) [place] % (Auto) Eos % (Auto) Baso % (Auto) Neut # (Auto) Lymph # (Auto) [place] # (Auto) Eos # (Auto) Baso # (Auto) Immature Gran # (Auto) Sodium 138 Potassium TNP 4.1 Chloride 112 H Carbon Dioxide 19 L Anion Gap 7 BUN 35 H Creatinine 2.43 H Est Cr Clr Drug Dosing 36.0 Est GFR ( Amer) 28.8 Est GFR (Non-Af Amer) 24.9 BUN/Creatinine Ratio 14.4 Glucose 64 L POC Glucose 98 Calcium 8.1 L 12/14/21 12/14/21 17:13 20:36 WBC RBC Hgb Hct MCV MCH MCHC RDW Std Deviation RDW Coeff of Yolanda Plt Count MPV Immature Gran % (Auto) Neut % (Auto) Lymph % (Auto) [place] % (Auto) Eos % (Auto) Baso % (Auto) Neut # (Auto) Lymph # (Auto) [place] # (Auto) Eos # (Auto) Baso # (Auto) Immature Gran # (Auto) Sodium Potassium Chloride Carbon Dioxide Anion Gap BUN Creatinine Est Cr Clr Drug Dosing Est GFR ( Amer) Est GFR (Non-Af Amer) BUN/Creatinine Ratio Glucose POC Glucose 81 99 Calcium PG Care Time/CCT Total # of Minutes Spent Total Time Spent with Patient: Total time spent is greater than 50% in coordination of care (as documented) at patient's floor/unit and/or counseling patient: Coding Level of Care Code 71632 Subseq Hosp Care Lvl 2 Diagnoses Nausea R11.0 Urinary tract infection N39.0 Hematuria presence: without hematuria Urinary tract infection type: site unspecified Diabetes E11.9 Anemia due to chronic kidney disease N18.9; D63.1 Paroxysmal atrial fibrillation I48.0 Essential hypertension I10 Hypothyroidism E03.9 Hypothyroidism type: unspecified Vitamin D deficiency E55.9 Chronic renal failure, stage 3b N18.32 Morbid obesity with BMI of 45.0-49.9, adult E66.01; Z68.42 BRETT (acute kidney injury) N17.9 Constipation K59.00 (1) Urinary tract infection Hematuria presence: without hematuria Urinary tract infection type: site unspecified Qualified Code(s): N39.0 - Urinary tract infection, site not specified (2) Hypothyroidism Hypothyroidism type: unspecified Qualified Code(s): E03.9 - Hypothyroidism, unspecified
[2021-12-15] MEDS: LEVOTHYROXINE SODIUM 88 MCG TABLET PO SCH (06:11)
[2021-12-15] MEDS: CEFEPIME 2,000 MG in SYRINGE 0 ML IV SCH ×2 (06:11→17:10)
[2021-12-15] MEDS: GABAPENTIN 100 MG CAP PO PRN ×2 (06:33→07:43)
[2021-12-15] MEDS: ADVANCED PROBIOTIC 1250 MG CAPSULE PO SCH (07:43)
[2021-12-15] MEDS: PANTOprazole 40 MG TAB PO SCH (07:43)
[2021-12-15] MEDS: FERROUS SULFATE 325 MG TAB PO SCH (07:43)
[2021-12-15] MEDS: SENNA 8.6 MG TAB PO SCH (07:43)
[2021-12-15] MEDS: CHOLECALCIFEROL 1,000 UNITS 25 MCG TAB PO SCH (07:43)
[2021-12-15] MEDS: FOLIC ACID 1 MG TAB PO SCH (07:44)
[2021-12-15] MEDS: METOPROLOL SUCC 25MG EXT REL TAB PO SCH ×2 (07:44→21:27)
[2021-12-15] MEDS: APIXABAN 5 MG TABLET PO SCH ×2 (07:44→21:26)
[2021-12-15] MEDS: POLYETHYLENE (MIRALAX) 17 GM PACK PO SCH (07:45)
[2021-12-15 08:03] LABS: BUN Creatinine Ratio 13.6 (10-20); Calcium 9.1 mg/dl (8.5-10.1); Creatinine Clr Calc Pharmacy 32.1 ml/min; Est GFR (African American) 25.2 ml/min; Est GFR (Non-African American) 21.7 ml/min; Potassium 4.1 mmol/L (3.5-5.1)
[2021-12-15] MEDS: INSULIN ASPART PER UNIT SC SCH ×4 (08:28→20:29)
[2021-12-15] MEDS: LANTUS PER UNIT CHARGE SQ SCH ×2 (08:28→21:31)
--- NOTE | 2021-12-15 21:21 | Hospitalist Progress Note ---
Date of Service December 15, 2021 Assessment & Plan (1) Nausea: Plan: resolved - 2nd to UTI + constipation can't rule out underlying diabetic gastroparesis additional w/u while here --- gallstones on CT and RUQ us but NO radiographic signs of cholecystitis. LFTs/lipase wnl. cont empiric PPI (was not on such at home) consider gastric emptying study if nausea recurs (2) Urinary tract infection: Plan: 2nd pseudomonas. Resistant to quinolones. Cont cefepime. No typical UTI symptoms but diabetes could be masking them. PSA very low making prostatitis unlikely and limited VICTOR M on 12/14/21 without prostatitis findings (had no tenderness, prostate not boggy, etc). Today is day #6-7 of cefepime. Plan 7 days of cefepime - last dose is AM of 12/16/21. d/c abx after tomorrow's dose. (3) Diabetes: Plan: HbA1c 10.1%. On basal-bolus insulin. Tightly Controlled at this time. lantus decreased to 15 units BID. control remains adequate. high a1c with less insulin requirements here vs home suggest noncompliance outside the hospital. (4) Anemia due to chronic kidney disease: Plan: H/H remain acceptable. (5) Paroxysmal atrial fibrillation: Plan: Examines in NSR. Continue Eliquis 5 mg twice daily Continue metoprolol 12.5 mg twice daily. (6) Essential hypertension: Plan: Continue metoprolol but hold HEIDY due to CKD. would not resume HEIDY at discharge given his Cr of 2.7. (7) Hypothyroidism: Plan: Continue levothyroxine 88 mcg daily. TSH 1.66 on 11/28/21. (8) Vitamin D deficiency: Plan: Continue vitamin D supplementation. (9) Chronic renal failure, stage 3b: Plan: baseline CrCl 30-40 Cr 2.7 today repeat the creatinine again in am for stability patient states he has f/u with [facility] nephrology in future? need to confirm this is true with his daughter who helps coordinate appointments (10) Morbid obesity with BMI of 45.0-49.9, adult: Plan: BMI 45.5 (11) BRETT (acute kidney injury): Plan: cause uncertain. no LUTS. looks euvolemic. due to HEIDY? HEIDY placed on hold. recent CT abd/pelvis with no urinary obstruction, hydro, etc. would not resume HEIDY at discharge. (12) Constipation: Plan: resolved cont scheduled senna with miralax Plan cont PT/OT spoke with pt's daughter on Wednesday- update given anticipate d/c home on Saturday 12/16 after his final dose of IV cefepime Admission and Anticipated Discharge Date Admission Date: December 09, 2021 Subjective had large bowel movement late last night he feels much better eating 100% meals NO NAUSEA IN 48+ hours no abd pain no new complaints per staff he is ambulating well in room Review of Systems Review of Systems: gen - no fevers, good energy, good appetite cv - no chest pain pulm - no cough or dyspnea GI - no vomiting - no LUTS; he reports he will be seeing nephrology at [facility] soon?? Physical Exam Physical Exam: gen - obese, NAD, looks great today HENT - hoarse voice (chronic, for years); mouth - MMM; no thrush neck - no JVD heart - RRR, s1 s2, no murmur lungs - CTA b/l abd - soft NT ND no HSM; BS+ ext - no edema, pulses 2+ b/l psych - a/o x 3 skin - scarring on arms from prior pastrana Results & Data Results & Data ([facility]) Vital Signs (Past 12 Hours) Vital Signs Temp Pulse Resp BP Pulse Ox O2 Del Method 12/15/21 15:14 36.4 C L 63 18 118/69 94 Room Air Laboratory Results Laboratory Results - last 24 hr 12/15/21 12/15/21 12/15/21 07:07 08:09 12:12 Sodium 137 Potassium 4.1 Chloride 108 H Carbon Dioxide 25 Anion Gap 4 BUN 37 H Creatinine 2.72 H Est Cr Clr Drug Dosing 32.1 Est GFR ( Amer) 25.2 Est GFR (Non-Af Amer) 21.7 BUN/Creatinine Ratio 13.6 Glucose 77 POC Glucose 78 98 Calcium 9.1 12/15/21 12/15/21 17:07 20:25 Sodium Potassium Chloride Carbon Dioxide Anion Gap BUN Creatinine Est Cr Clr Drug Dosing Est GFR ( Amer) Est GFR (Non-Af Amer) BUN/Creatinine Ratio Glucose POC Glucose 88 119 H Calcium PG Care Time/CCT Total # of Minutes Spent Total Time Spent with Patient: Total time spent is greater than 50% in coordination of care (as documented) at patient's floor/unit and/or counseling patient: Coding Level of Care Code 36276 Subseq Hosp Care Lvl 2 Diagnoses Nausea R11.0 Urinary tract infection N39.0 Hematuria presence: without hematuria Urinary tract infection type: site unspecified Diabetes E11.9 Anemia due to chronic kidney disease N18.9; D63.1 Paroxysmal atrial fibrillation I48.0 Essential hypertension I10 Hypothyroidism E03.9 Hypothyroidism type: unspecified Vitamin D deficiency E55.9 Chronic renal failure, stage 3b N18.32 Morbid obesity with BMI of 45.0-49.9, adult E66.01; Z68.42 BRETT (acute kidney injury) N17.9 Constipation K59.00 (1) Urinary tract infection Hematuria presence: without hematuria Urinary tract infection type: site unspecified Qualified Code(s): N39.0 - Urinary tract infection, site not specified (2) Hypothyroidism Hypothyroidism type: unspecified Qualified Code(s): E03.9 - Hypothyroidism, unspecified
[2021-12-16] MEDS: CEFEPIME 2,000 MG in SYRINGE 0 ML IV SCH (06:15)
[2021-12-16] MEDS: LEVOTHYROXINE SODIUM 88 MCG TABLET PO SCH (06:15)
[2021-12-16] MEDS: CHOLECALCIFEROL 1,000 UNITS 25 MCG TAB PO SCH (08:28)
[2021-12-16] MEDS: FOLIC ACID 1 MG TAB PO SCH (08:28)
[2021-12-16] MEDS: ADVANCED PROBIOTIC 1250 MG CAPSULE PO SCH (08:29)
[2021-12-16] MEDS: PANTOprazole 40 MG TAB PO SCH (08:29)
[2021-12-16] MEDS: FERROUS SULFATE 325 MG TAB PO SCH (08:29)
[2021-12-16] MEDS: APIXABAN 5 MG TABLET PO SCH (08:30)
[2021-12-16] MEDS: POLYETHYLENE (MIRALAX) 17 GM PACK PO SCH (08:30)
[2021-12-16] MEDS: METOPROLOL SUCC 25MG EXT REL TAB PO SCH (08:30)
[2021-12-16] MEDS: SENNA 8.6 MG TAB PO SCH (08:31)
[2021-12-16] MEDS: INSULIN ASPART PER UNIT SC SCH ×2 (08:52→12:26)
[2021-12-16] MEDS: LANTUS PER UNIT CHARGE SQ SCH (08:57)
[2021-12-16 10:09] LABS: Creatinine Clr Calc Pharmacy 29.9 ml/min; Est GFR (African American) 23.1 ml/min; Est GFR (Non-African American) 19.9 ml/min
--- NOTE | 2021-12-16 13:12 | Discharge Summary ---
Date of Service December 16, 2021 Admission HPI Per Admitting Provider Rafael Santos is a 76-year-old male with past medical history significant for hypertension, DM2 on insulin, CKD, paroxysmal A. fib on Eliquis, hypothyroidism, hyperlipidemia, BPH, and recurrent UTIs who presents today with nausea, stomachache and generalized weakness. He was admitted 11/26-11/30 for diarrheal illness and UTI. As he has had multiple cultures grow Pseudomonas but has always been asymptomatic and his presenting symptom on that admission was diarrhea, he was treated with a 3-day course of Zosyn and with supportive care for an E. coli gastroenteritis and discharged home feeling well on 11/30. Since discharge he had been feeling well up until this morning when he woke up and felt "not himself "noting he felt just a little weak and may be dizzy 2. He took his morning medications and proceeded with his morning, however upon ambulation to the bathroom began again to feel weak, nauseous and as if he might either vomit or have a bowel movement. He promptly called EMS for transportation to ED for further evaluation. No point did he passed out, vision loss, chest pain, palpitations, shortness of breath with this episode. He states he has felt this way previously with UTIs, he has no urinary symptoms but typically does not present with such. He has had no previous abdominal pain or diarrhea over the past few days. On presentation to the ED, is moderately hypertensive, however otherwise vital signs are within normal limits and stable. Urine is cloudy with nitrites, 3+ leukocyte Estrace, >30 WBCs, and 2+ bacteria. Labs otherwise significant for stable with an Hgb of 12.6, renal function at baseline with BUN 29, creatinine 2.08, his glucose 151. He is without electrolyte abnormalities or leukocytosis. Principal Diagnosis Pseudomonas UTI, nausea/vomiting, constipation Discharge Exam gen - obese, NAD HENT - hoarse voice (chronic, for years); mouth - MMM; no thrush neck - no JVD heart - RRR, s1 s2, no murmur lungs - CTA b/l abd - soft NT ND no HSM; BS+ ext - no edema, pulses 2+ b/l psych - a/o x 3 skin - scarring on arms from prior pastrana Discharge Data Allergies Allergy/AdvReac Type Severity Reaction Status Date / Time ciprofloxacin [From Cipro] AdvReac Intermediate Upset Unverified 12/09/21 15:31 Stomach, Nausea, GI Discomfort Consultations 12/09/21 17:59 ED Decision to Admit Stat Ordered Studies 12/11/21 US gallbladder Urgent Hospital Course (1) Nausea: resolved - 2nd to UTI + constipation can't rule out underlying diabetic gastroparesis additional w/u while here --- gallstones on CT and RUQ us but NO radiographic signs of cholecystitis. LFTs/lipase wnl. cont empiric PPI (was not on such at home) consider gastric emptying study if nausea recurs (2) Urinary tract infection: 2nd pseudomonas. At this previously but was not completely treated due to being thought to be secondary to "colonization," however he has no indwelling Morales catheter or ureteral stents, etc. so it is doubtful that he is or should be colonized with any bacteria Resistant to quinolones. Received cefepime and 7-day course No typical UTI symptoms but diabetes could be masking them. PSA very low making prostatitis unlikely and limited VICTOR M on 12/14/21 without prostatitis findings (had no tenderness, prostate not boggy, etc). Should follow-up with urology as an outpatient (3) Diabetes: HbA1c 10.1%. On basal-bolus insulin. Tightly Controlled at this time. lantus decreased to 15 units BID while hospitalized but can go back up to 20 units twice a day for home dose upon discharge. control remains adequate. high a1c with less insulin requirements here vs home suggest noncompliance outside the hospital. (4) Anemia due to chronic kidney disease: H/H remain acceptable. (5) Paroxysmal atrial fibrillation: Examines in NSR. Continue Eliquis 5 mg twice daily Continue metoprolol 12.5 mg twice daily. (6) Essential hypertension: Continue metoprolol but hold ACEi due to CKD. would not resume ACEi/lisinopril at discharge given his Cr of 2.7. Recommend follow-up with nephrology as an outpatient (7) Hypothyroidism: Continue levothyroxine 88 mcg daily. TSH 1.66 on 11/28/21. (8) Vitamin D deficiency: Continue vitamin D supplementation. (9) Chronic renal failure, stage 3b: baseline CrCl 30-40 Cr 2.7 patient states he has f/u with [facility] nephrology in future? (10) Morbid obesity with BMI of 45.0-49.9, adult: BMI 45.5 (11) BRETT (acute kidney injury): cause uncertain. no LUTS. looks euvolemic. due to ACEi? HEIDY placed on hold. recent CT abd/pelvis with no urinary obstruction, hydro, etc. would not resume ACEi at discharge. (12) Constipation: resolved cont Mepilex as needed after discharge Plan Stable for discharge to home Home Health Attestation I certify that this patient is under my care and that I, or a physicians equity sales assistant working with me, had a face to-face encounter that meets the home health [id number] encounter requirements with this patient. The encounter with the patient was in whole, or in part, for the following medical condition, which is the primary reason for home health care (list medical condition): UTI/weakness I certify that, based on my findings, the following services are medically necessary home health services: My clinical findings support the need for the above services because: OT Assess ADL Status and Restore Function w ADLs PT Assessment for Endurance / Balance / Strength PT Eval for Safety and Mobility PT Eval for Safety, Gait Training, Assistive Devices PT Gait and Balance Training, Strengthening and Safety Skilled Nsg Assessment Further, I certify that my clinical findings support that this patient is homebound (i.e. absences from home require considerable and taxing effort and are for medical reasons or sikhism services or infrequently or of short duration when for other reasons) because: Assistance of 1 Person for Ambulation/Activities Supportive Aid - Walker Certification for Home Health Services: Based on the above findings, I certify that this patient is confined to the home and needs intermittent jail care, physical therapy and/or speech therapy or continues to need occupational therapy. The patient is under my care, and I have initiated the establishment of the plan of care. This patient will be followed by a physician who will periodically review the plan of care. Total Time Total Time Spent Total Time Spent (In Minutes): 35 min Discharge Plan Discharge Items Patient Disposition: Home - Home Health Services Reason For Visit: UTI Discharge Diagnosis: Pseudomonas UTI, constipation Condition on Discharge: Good Activity: Resume your previous activity Non-emergency contact: Primary Care Provider Call non-emergency contact if: you have any medication questions and your symptoms worsen Follow-up/Referrals: Mann Bright NP-C [Primary Care Provider] - (Follow-up within 1 week) Diet: Carb Consistent or DM2 and Heart Healthy Addtl Attending Provider Instructions: Admitted with symptoms related to your urinary tract infection. This was treated with antibiotics for 7 days through the IV and you had improvement. Please continue to work on a bowel regimen to keep your bowels moving regularly each day. Your lisinopril from home was discontinued due to your chronic kidney disease. Please follow-up with a kidney specialist/soda room operator as an outpatient. You were started on pantoprazole which is an antacid to help with some of your nausea. If your nausea becomes ongoing again, you may want to ask your primary care physician about having a gastric emptying study. Please continue to move your bowels regularly which also helps with nausea as above. Is very important that you follow-up with your primary care physician within 1 week. Pending Studies at Discharge: No Stand-Alone Forms: My [facility] Acheive CCA, Smoking Cessation Medications and DC Order Prescriptions: New polyethylene glycol 3350 [Miralax] 17 gram Powder In Packet 17 g PO DAILY PRN (Reason: constipation) Qty: 30 0RF Rx Instructions: Nzsv-uiv-nmaivka pantoprazole 40 mg Tablet,Delayed Release (Dr/Ec) 40 mg PO QAM Qty: 30 0RF Continued apixaban 5 mg tablet 5 mg PO BID cholecalciferol (vitamin D3) 25 mcg (1,000 unit) capsule 25 mcg PO QAM folic acid 1 mg tablet 1 mg PO QAM levothyroxine 88 mcg capsule 88 mcg PO DAILYBB metoprolol succinate 25 mg tablet extended release 24 hr 12.5 mg PO BID trazodone 50 mg tablet 50 mg PO HS PRN (Reason: Sleep) ferrous sulfate [FeroSul] 325 mg (65 mg iron) tablet 325 mg PO QAM gabapentin 100 mg capsule 100 mg PO QID PRN (Reason: Nerve Pain) insulin glargine [Lantus Solostar U-100 Insulin] 100 unit/mL (3 mL) insulin pen 20 unit subcut BID Qty: 15 0RF Discontinued lisinopril 10 mg tablet 10 mg PO DAILY Qty: 90 3RF Discharge Orders: Discharge Order (Routine); Ordered 12/16/21 Ordered By: Mini Byrnes Admission Data Admit Date/Time: 12/09/21 19:31 Attending Provider: Mini Byrnes Admit Provider: Toño Travis Primary Care Provider: Mann Bright Other Providers: Toño Travis ; [facility],Home Healthcare ; [facility] Coding Level of Care Code D/C DAY MANAGEMENT >30 MINS Diagnoses Nausea R11.0 Urinary tract infection N39.0 Hematuria presence: without hematuria Urinary tract infection type: site unspecified Diabetes E11.9 Anemia due to chronic kidney disease N18.9; D63.1 Paroxysmal atrial fibrillation I48.0 Essential hypertension I10 Hypothyroidism E03.9 Hypothyroidism type: unspecified Vitamin D deficiency E55.9 Chronic renal failure, stage 3b N18.32 Morbid obesity with BMI of 45.0-49.9, adult E66.01; Z68.42 BRETT (acute kidney injury) N17.9 Constipation K59.00
== END 2021-12-16 14:52 | disposition home health service (06) | DRG 690 ==
LOC: ED 14:38 → SUATTDRO 19:31 → 3E 19:31

== ENCOUNTER 2022-02-12 09:46 | Inpatient (IN) ==
--- NOTE | 2022-02-12 10:22 | Emergency Department Note ---
History of Present Illness General Chief complaint: Illness Time Seen by Provider: 02/12/22 10:09 Source: patient Mode of arrival: ambulatory Limitations: no limitations History of Present Illness Provider complaint: Cough, shortness of breath, weakness, nausea, sore throat This is a 76-year-old male who presents emergency department complaining of multiple symptoms and concern for illness. Patient states yesterday he began noticing a sore throat. He states today when he awoke he felt chills, nausea, weakness, and shortness of breath. Patient denies any known sick contact. He denies any recent change in medications. Patient states he did not vomit, and he denies any diarrhea or change in stools. He states he feels a lot of nasal congestion draining down his throat which also contributes to his cough. He denies any hemoptysis. He states shortness of breath is worse with exertion. He denies any history of heart problems and denies any current leg swelling. He denies any accompanying headaches, chest pain, or abdominal pain. He states he feels increased fatigue and slightly achy. Home Medications Medication Instructions Recorded Confirmed Type apixaban 5 mg tablet 5 mg PO BID 04/25/21 02/12/22 History cholecalciferol (vitamin D3) 25 25 mcg PO QAM 04/25/21 02/12/22 History mcg (1,000 unit) capsule folic acid 1 mg tablet 1 mg PO QAM 04/25/21 02/12/22 History levothyroxine 88 mcg capsule 88 mcg PO DAILYBB 04/25/21 02/12/22 History metoprolol succinate 25 mg 12.5 mg PO BID 05/05/21 02/12/22 History tablet,extended release 24 hr ferrous sulfate 325 mg (65 mg 325 mg PO QAM 06/30/21 02/12/22 History iron) tablet (FeroSul) gabapentin 100 mg capsule 100 mg PO QID PRN Nerve Pain 06/30/21 02/12/22 History trazodone 50 mg tablet 50 mg PO HS PRN Sleep 06/30/21 02/12/22 History lisinopril 5 mg tablet 5 mg PO DAILY #90 tabs 01/08/22 02/12/22 Rx pantoprazole 40 mg tablet,delayed 40 mg PO DAILY #30 tabs 01/22/22 02/12/22 Rx release insulin glargine 100 unit/mL (3 16 unit subcut BID 02/12/22 02/12/22 History mL) subcutaneous pen (Lantus Solostar U-100 Insulin) semaglutide 0.25 mg or 0.5 mg (2 0.25 mg subcut WK 02/12/22 02/12/22 History mg/1.5 mL) subcutaneous pen injector (Ozempic) Allergies Allergy/AdvReac Type Severity Reaction Status Date / Time ciprofloxacin [From Cipro] AdvReac Intermediate Upset Verified 02/12/22 15:08 Stomach, Nausea, GI Discomfort Past Med/Surg History Medical History Age-related nuclear cataract, right eye Anemia due to chronic kidney disease Chronic kidney disease, stage 4 (severe) Stage 3b chronic kidney disease Vitamin D deficiency Surgical History No significant past surgical history Family History Other Family history non-contributory Social History Smoking Status: Never smoker Do You Dip or Chew Tobacco: No; Hx Alcohol Use: No Hx Substance Use: No Preferred Language: Finnish Communication Ability: Effective Ob Gyn Physician Assistant Required: No Beliefs That Will Affect Care: None marital status: Current Living Situation: Alone Current Living Situation Comment: lives alone is a studio apartment with 2 JERED Other Information That Helps Us Care for You: No Feels Safe at Home: Yes Safety Concerns: Feels Safe At This Time Assistive Devices: Cane, Glasses, Hearing Aid - Bilateral and Oxygen - at Night Review of Systems A total of 10 systems reviewed and were otherwise negative All systems reviewed & are unremarkable except as noted in HPI & below Physical Exam Vital Signs Vital Signs - 24 hr 02/12/22 09:54 02/12/22 11:04 02/12/22 12:53 Temperature 36.4 C L Temperature Source Oral Pulse Rate 75 Pulse Rate [Apical] 79 75 Respiratory Rate 18 16 18 Respiratory Effort / Characteristics Non-Labored Spontaneous Non-Labored Spontaneous Non-Labored Spontaneous Respiratory Depth Normal Normal Normal Respiratory Pattern Blood Pressure 150/82 H Blood Pressure [Right Arm] 124/80 144/95 H Blood Pressure Mean 104 Blood Pressure Mean [Right Arm] 94 111 Pulse Oximetry 97 97 99 Oxygen Delivery Method Room Air Room Air Room Air Sepsis Recent Fever Within 48 Hours No Sepsis New/Unexplained Change in Mental Status No Sepsis Action Taken by Nursing No Action Required 02/12/22 14:34 Temperature Temperature Source Pulse Rate Pulse Rate [Apical] 76 Respiratory Rate 18 Respiratory Effort / Characteristics Non-Labored Spontaneous Respiratory Depth Normal Respiratory Pattern Regular Blood Pressure Blood Pressure [Right Arm] 144/78 H Blood Pressure Mean Blood Pressure Mean [Right Arm] 100 Pulse Oximetry 98 Oxygen Delivery Method Room Air Sepsis Recent Fever Within 48 Hours Sepsis New/Unexplained Change in Mental Status Sepsis Action Taken by Nursing GENERAL: alert, well appearing, well nourished, no distress, non-toxic, BMI>45 EYE EXAM: normal conjunctiva, PERRL and EOM's grossly intact OROPHARYNX: no exudate, no erythema, lips, buccal mucosa, and tongue normal and mucous membranes are moist NECK: supple, no nuchal rigidity, no adenopathy, non-tender LUNGS: Clear but decreased to auscultation. Normal chest wall mechanics, no w/r/r, pt initially hypoxic at 87% which improved with conversation HEART: no murmurs, S1 normal and S2 normal ABDOMEN: abdomen soft, non-tender, normo-active bowel sounds, no masses, no rebound or guarding. BACK: Back is symmetrical on inspection and there is no deformity, no midline tenderness, no CVA tenderness. SKIN: no rashes and no bruising UPPER EXTREMITIES: upper extremities are grossly normal. FROM, nml pulses b/l. LOWER EXTREMITIES: Trace b/l pitting edema. FROM, nml pulses b/l. NEURO EXAM: Normal sensorium, cranial nerves II-XII grossly intact, normal speech, no gross weakness of arms, no gross weakness of legs. Gross sensation intact. Course Administered Medications Discontinued Medications Sodium Chloride (Nss 1000ml) 1,000 mls @ 125 mls/hr IV .Q8H LEE Stop: 03/14/22 10:29 Last Admin: 02/12/22 10:45 Dose: 125 mls/hr Documented By: TRACY Cefepime HCl (Maxipime) 2,000 mg in 20 mls @ 5 mls/min IV NOW STA; Protocol Stop: 02/12/22 12:47 Last Admin: 02/12/22 12:50 Dose: 5 mls/min Documented By: TRACY Medical Decision Making Differential Diagnosis Viral syndrome, strep pharyngitis, tonsillitis, mononucleosis, retropharyngeal abscess, peritonsillar abscess, otitis media, sinusitis, bronchitis, pneumonia, as well as other pathologies. Medical Records Attestation: I reviewed the patient's medical records. Home Medications Current Medication List: was personally reviewed by me Laboratory Data Attestation: I reviewed the patient's lab results. Result diagrams: 02/12/22 10:40 02/12/22 10:40 Lab Results 02/12/22 02/12/22 02/12/22 Range/Units 10:40 10:40 10:40 WBC 8.75 (4.8-10.8) K/ul RBC 4.08 L (4.63-6.08) M/uL Hgb 11.9 L (14.0-18.0) g/dl Hct 39.4 L (40.1-51.0) % MCV 96.6 (80.0-100.0) fL MCH 29.2 (25.0-34.0) pg MCHC 30.2 L (32.0-36.0) g/dL RDW Std Deviation 52.5 H (36.4-46.3) fL RDW Coeff of Yolanda 14.8 H (11.5-14.5) % Plt Count 273 (130-400) K/uL MPV 10.4 (9.4-12.4) fL Immature Gran % (Auto) 1.5 % Neut % (Auto) 77.6 % Lymph % (Auto) 10.3 % [place] % (Auto) 6.6 % Eos % (Auto) 3.4 % Baso % (Auto) 0.6 % Neut # (Auto) 6.79 H (1.4-6.5) K/uL Lymph # (Auto) 0.90 L (1.2-3.4) K/uL [place] # (Auto) 0.58 (0.24-0.82) K/uL Eos # (Auto) 0.30 (0-0.50) K/uL Baso # (Auto) 0.05 (0-0.2) K/uL Immature Gran # (Auto) 0.13 H (0.00-0.02) K/uL Sodium 141 (136-145) mmol/L Potassium 4.3 (3.5-5.1) mmol/L Chloride 108 H (98-107) mmol/L Carbon Dioxide 27 (21-32) mmol/L Anion Gap 6 (3-11) BUN 27 H (6-23) mg/dl Creatinine 2.30 H (0.6-1.4) mg/dl Est Cr Clr Drug Dosing 38.1 ml/min Est GFR ( Amer) 30.8 ml/min Est GFR (Non-Af Amer) 26.6 ml/min BUN/Creatinine Ratio 11.7 (10-20) Glucose 79 (70-99(Fasting)) mg/dl POC Glucose (70-99) mg/dl Calcium 9.5 (8.5-10.1) mg/dl Magnesium 2.2 (1.7-2.4) mg/dl Total Bilirubin 0.5 (0.2-1.0) mg/dl AST 12 L (13-39) U/L ALT 12 (7-52) U/L Alkaline Phosphatase 51 (34-104) U/L Troponin I High Sens 9.6 D (0-20) pg/ml B-Natriuretic Peptide 108 H (0-100) pg/ml Total Protein 7.5 (6.0-8.3) gm/dl Albumin 3.5 (3.4-5.0) gm/dl Globulin 4.0 (2.5-4.0) gm/dl Albumin/Globulin Ratio 0.9 (0.9-2) TSH (0.300-4.500) uIu/ml Urine Color Urine Appearance (Clear) Urine pH (4.5-7.5) Ur Specific [place] (1.000-1.030) Urine Protein (Negative) Urine Glucose (UA) (Negative) Urine Ketones (Negative) Urine Blood (Negative) Urine Nitrite (Negative) Urine Bilirubin (Negative) Urine Urobilinogen (Negative) Ur Leukocyte Esterase (Negative) Urine WBC (Auto) (0-5) /hpf Urine RBC (Auto) (0-4) /hpf U Hyaline Cast (Auto) (0-5) /lpf U Epithel Cells (Auto) (0-5) /lpf Urine Bacteria (Auto) (Negative) Adenovirus (PCR) (NotDetected) B. pertussis DNA (PCR) (NotDetected) B.parapertussis DNA PCR (NotDetected) C. pneumoniae DNA (PCR) (NotDetected) Coronavirus OC43 (PCR) (NotDetected) Coronavirus HKU1 (PCR) (NotDetected) Coronavirus 229E (PCR) (NotDetected) SARS-CoV-2 (PCR) (NotDetected) Coronavirus NL63 (PCR) (NotDetected) Human Metapneumovir PCR (NotDetected) Influenza Type A (PCR) (NotDetected) Influenza Type B (PCR) (NotDetected) M. pneumoniae (PCR) (NotDetected) Parainfluenza 1 (PCR) (NotDetected) Parainfluenza 2 (PCR) (NotDetected) Parainfluenza 3 (PCR) (NotDetected) Parainfluenza 4 (PCR) (NotDetected) RSV (PCR) (NotDetected) Entero/Rhino (PCR) (NotDetected) 02/12/22 02/12/22 02/12/22 Range/Units 10:40 10:40 12:10 WBC (4.8-10.8) K/ul RBC (4.63-6.08) M/uL Hgb (14.0-18.0) g/dl Hct (40.1-51.0) % MCV (80.0-100.0) fL MCH (25.0-34.0) pg MCHC (32.0-36.0) g/dL RDW Std Deviation (36.4-46.3) fL RDW Coeff of Yolanda (11.5-14.5) % Plt Count (130-400) K/uL MPV (9.4-12.4) fL Immature Gran % (Auto) % Neut % (Auto) % Lymph % (Auto) % [place] % (Auto) % Eos % (Auto) % Baso % (Auto) % Neut # (Auto) (1.4-6.5) K/uL Lymph # (Auto) (1.2-3.4) K/uL [place] # (Auto) (0.24-0.82) K/uL Eos # (Auto) (0-0.50) K/uL Baso # (Auto) (0-0.2) K/uL Immature Gran # (Auto) (0.00-0.02) K/uL Sodium (136-145) mmol/L Potassium (3.5-5.1) mmol/L Chloride (98-107) mmol/L Carbon Dioxide (21-32) mmol/L Anion Gap (3-11) BUN (6-23) mg/dl Creatinine (0.6-1.4) mg/dl Est Cr Clr Drug Dosing ml/min Est GFR ( Amer) ml/min Est GFR (Non-Af Amer) ml/min BUN/Creatinine Ratio (10-20) Glucose (70-99(Fasting)) mg/dl POC Glucose (70-99) mg/dl Calcium (8.5-10.1) mg/dl Magnesium (1.7-2.4) mg/dl Total Bilirubin (0.2-1.0) mg/dl AST (13-39) U/L ALT (7-52) U/L Alkaline Phosphatase (34-104) U/L Troponin I High Sens (0-20) pg/ml B-Natriuretic Peptide (0-100) pg/ml Total Protein (6.0-8.3) gm/dl Albumin (3.4-5.0) gm/dl Globulin (2.5-4.0) gm/dl Albumin/Globulin Ratio (0.9-2) TSH 2.329 (0.300-4.500) uIu/ml Urine Color Yellow Urine Appearance Cloudy A (Clear) Urine pH 5.5 (4.5-7.5) Ur Specific [place] 1.014 (1.000-1.030) Urine Protein Trace H (Negative) Urine Glucose (UA) Negative (Negative) Urine Ketones Negative (Negative) Urine Blood 1+ H (Negative) Urine Nitrite Positive A (Negative) Urine Bilirubin Negative (Negative) Urine Urobilinogen Negative (Negative) Ur Leukocyte Esterase 3+ H (Negative) Urine WBC (Auto) >30 H (0-5) /hpf Urine RBC (Auto) 0-4 (0-4) /hpf U Hyaline Cast (Auto) 1-5 (0-5) /lpf U Epithel Cells (Auto) 10-20 H (0-5) /lpf Urine Bacteria (Auto) 1+ H (Negative) Adenovirus (PCR) Not Detected (NotDetected) B. pertussis DNA (PCR) Not Detected (NotDetected) B.parapertussis DNA PCR Not Detected (NotDetected) C. pneumoniae DNA (PCR) Not Detected (NotDetected) Coronavirus OC43 (PCR) Not Detected (NotDetected) Coronavirus HKU1 (PCR) Not Detected (NotDetected) Coronavirus 229E (PCR) Not Detected (NotDetected) SARS-CoV-2 (PCR) Not Detected (NotDetected) Coronavirus NL63 (PCR) Not Detected (NotDetected) Human Metapneumovir PCR Not Detected (NotDetected) Influenza Type A (PCR) Not Detected (NotDetected) Influenza Type B (PCR) Not Detected (NotDetected) M. pneumoniae (PCR) Not Detected (NotDetected) Parainfluenza 1 (PCR) Not Detected (NotDetected) Parainfluenza 2 (PCR) Not Detected (NotDetected) Parainfluenza 3 (PCR) Not Detected (NotDetected) Parainfluenza 4 (PCR) Not Detected (NotDetected) RSV (PCR) Not Detected (NotDetected) Entero/Rhino (PCR) Not Detected (NotDetected) 02/12/22 02/12/22 Range/Units 13:12 15:09 WBC (4.8-10.8) K/ul RBC (4.63-6.08) M/uL Hgb (14.0-18.0) g/dl Hct (40.1-51.0) % MCV (80.0-100.0) fL MCH (25.0-34.0) pg MCHC (32.0-36.0) g/dL RDW Std Deviation (36.4-46.3) fL RDW Coeff of Yolanda (11.5-14.5) % Plt Count (130-400) K/uL MPV (9.4-12.4) fL Immature Gran % (Auto) % Neut % (Auto) % Lymph % (Auto) % [place] % (Auto) % Eos % (Auto) % Baso % (Auto) % Neut # (Auto) (1.4-6.5) K/uL Lymph # (Auto) (1.2-3.4) K/uL [place] # (Auto) (0.24-0.82) K/uL Eos # (Auto) (0-0.50) K/uL Baso # (Auto) (0-0.2) K/uL Immature Gran # (Auto) (0.00-0.02) K/uL Sodium (136-145) mmol/L Potassium (3.5-5.1) mmol/L Chloride (98-107) mmol/L Carbon Dioxide (21-32) mmol/L Anion Gap (3-11) BUN (6-23) mg/dl Creatinine (0.6-1.4) mg/dl Est Cr Clr Drug Dosing ml/min Est GFR ( Amer) ml/min Est GFR (Non-Af Amer) ml/min BUN/Creatinine Ratio (10-20) Glucose (70-99(Fasting)) mg/dl POC Glucose 68 L* 75 (70-99) mg/dl Calcium (8.5-10.1) mg/dl Magnesium (1.7-2.4) mg/dl Total Bilirubin (0.2-1.0) mg/dl AST (13-39) U/L ALT (7-52) U/L Alkaline Phosphatase (34-104) U/L Troponin I High Sens (0-20) pg/ml B-Natriuretic Peptide (0-100) pg/ml Total Protein (6.0-8.3) gm/dl Albumin (3.4-5.0) gm/dl Globulin (2.5-4.0) gm/dl Albumin/Globulin Ratio (0.9-2) TSH (0.300-4.500) uIu/ml Urine Color Urine Appearance (Clear) Urine pH (4.5-7.5) Ur Specific [place] (1.000-1.030) Urine Protein (Negative) Urine Glucose (UA) (Negative) Urine Ketones (Negative) Urine Blood (Negative) Urine Nitrite (Negative) Urine Bilirubin (Negative) Urine Urobilinogen (Negative) Ur Leukocyte Esterase (Negative) Urine WBC (Auto) (0-5) /hpf Urine RBC (Auto) (0-4) /hpf U Hyaline Cast (Auto) (0-5) /lpf U Epithel Cells (Auto) (0-5) /lpf Urine Bacteria (Auto) (Negative) Adenovirus (PCR) (NotDetected) B. pertussis DNA (PCR) (NotDetected) B.parapertussis DNA PCR (NotDetected) C. pneumoniae DNA (PCR) (NotDetected) Coronavirus OC43 (PCR) (NotDetected) Coronavirus HKU1 (PCR) (NotDetected) Coronavirus 229E (PCR) (NotDetected) SARS-CoV-2 (PCR) (NotDetected) Coronavirus NL63 (PCR) (NotDetected) Human Metapneumovir PCR (NotDetected) Influenza Type A (PCR) (NotDetected) Influenza Type B (PCR) (NotDetected) M. pneumoniae (PCR) (NotDetected) Parainfluenza 1 (PCR) (NotDetected) Parainfluenza 2 (PCR) (NotDetected) Parainfluenza 3 (PCR) (NotDetected) Parainfluenza 4 (PCR) (NotDetected) RSV (PCR) (NotDetected) Entero/Rhino (PCR) (NotDetected) Imaging Data Radiologist's Impression: Chest X-Ray 02/12/22 10:18 XR chest 1V portable HISTORY: 76 years-old Male sob, cough acute cough with shortness of breath COMPARISON: Chest radiograph 12/09/2021, CT abdomen and pelvis 11/27/2021. TECHNIQUE: AP view of the chest FINDINGS: Cardiac silhouette is enlarged. Pulmonary vascular congestion. Atherosclerosis of the aorta. Unchanged blunting of the costophrenic angles. Chronic left lung volume loss with hazy opacities suggestive of atelectasis/scarring. IMPRESSION: Stable appearance of the chest. No acute process. ACT 112: Negative or not required by law. The above report was generated using voice recognition software. It may contain grammatical, syntax or spelling errors. Electronically signed by: Neptali Mckeon M.D. 02/12/2022 10:[address] 02/12/22 12:08 CT OF THE CHEST WITHOUT IV CONTRAST CLINICAL HISTORY: Shortness of breath. Cough. COMPARISON STUDY: Chest radiograph February 12, 2022. Chest radiograph June 30, 2021. CT of the abdomen and pelvis November 27, 2021. CT DOSE: 1183.59 mGy.cm TECHNIQUE: Axial images of the chest were obtained without IV contrast. Images were reviewed in the axial, sagittal, and coronal planes. IV contrast was not administered for this examination. Automated exposure control was utilized for the study. A dose lowering technique was utilized adhering to the principles of ALARA. FINDINGS: There is a mildly enlarged right paratracheal lymph node on axial image 67 of 296. This node measures 1.8 x 1.2 cm. No additional enlarged thor acic lymph nodes are present. Cardiomegaly is noted. No pericardial effusion. A trace left pleural effusion with pleural thickening is unchanged since prior abdominal CT's. This likely is chronic. Multifocal subpleural opacities within left lung with volume loss are noted. Left lower lobe abnormality is unchanged from earlier abdominal CTs. These favor round atelectasis. There is no consolidation to suggest pneumonia. Central airways are patent. There is no pneumothorax. No suspicious lesions within the bony thorax are present. Visualized portions of the upper abdomen are unremarkable on this unenhanced exam. IMPRESSION: 1. No acute intrathoracic findings. 2. Stable small left pleural effusion with pleural thickening. This favors a chronic pleural effusion. Subpleural left lung opacities with volume loss favor round atelectasis. A follow-up chest CT in 6 months to ensure stability is recommended. 3. Indeterminate mildly enlarged right paratracheal lymph node which should be assessed on follow-up chest CT to ensure stability. ACT 112: Positive. There are findings on this exam that require communication between the performing entity and the patient following Patient Test Result Information Act ([place] Act 112) guidelines. Electronically signed by: Tyree Hall M.D. 02/12/2022 2:16 PM ECG Data Attestation: I personally reviewed and interpreted this ECG as follows: Indication: + SOB/dyspnea Rate (beats per minute): 75 Rhythm: + atrial fibrillation ECG Intervals/blocks: + Normal QRS and + Normal QT ECG [place]: + Left axis deviation ECG ST segments: + Nonspecific ST abnormalities MDM Narrative An order was placed for continuous cardiac monitoring. The monitor shows a rate of _87_ with _atrial fibrillation_ rhythm. This is a 76-year-old male presents emergency department with multiple symptoms and concern for evolving illness. No known sick contacts. Patient noted to be hypoxic when I first entered the room however with encouragement of deep breathing and continued conversation, saturations improved. Patient does report dyspnea with exertion. No prior significant pulmonary history. Patient does have cardiac history including atrial fibrillation for which she is anticoagulated. Labs drawn and sent, nasal swab performed, chest x-ray obtained. Patient's chronic kidney disease stable compared to prior. Chest x- ray reassuring, nasal swab negative. Given concern for evolving symptoms despite negative chest x-ray, patient sent for CT of the chest additionally which did not reveal any pneumonia or pulmonary edema. Patient was found to have urinary tract infection and in reviewing prior cultures, he grows out Pseudomonas with limited sensitivities. Patient given IV cefepime in the emergency room. Updated patient on all results and discussed the case with the hospitalist team due to my concern for need for IV medications for treatment of his UTI until sensitivities and organism are known, as well as unclear etiology of his respiratory symptoms at this time. Impression & Plan Dyspnea, Acute UTI (urinary tract infection), Hypoxia, CKD (chronic kidney disease) Discharge Plan Visit Data Chief Complaint: Illness ED Provider: Coco Morrissey Discharge Problem: Dyspnea, Acute UTI (urinary tract infection), Hypoxia, CKD (chronic kidney disease) Patient Disposition: Admitted As Inpatient Discharge Instructions Interventions: ED Discharge Assessment Last Done: 02/12/22 16:52
[2022-02-12] MEDS ORDERED: SODIUM CHLORIDE 0.9% 1000ML 1,000 ML IV SCH (10:30)
--- NOTE | 2022-02-12 10:39 | XRay Report ---
XR chest 1V portable HISTORY: 76 years-old Male sob, cough acute cough with shortness of breath COMPARISON: Chest radiograph 12/09/2021, CT abdomen and pelvis 11/27/2021. TECHNIQUE: AP view of the chest FINDINGS: Cardiac silhouette is enlarged. Pulmonary vascular congestion. Atherosclerosis of the aorta. Unchange d blunting of the costophrenic angles. Chronic left lung volume loss with hazy opacities suggestive o f atelectasis/scarring. IMPRESSION: Stable appearance of the chest. No acute process. ACT 112: Negative or not required by law. The above report was generated using voice recognition software. It may contain grammatical, syntax o r spelling errors. Electronically signed by: Neptali Mckeon M.D. 02/12/2022 10:36 AM
[2022-02-12 10:59] LABS: Basophils # (auto) 0.05 K/uL (0-0.2); Basophils % (auto) 0.6 %; Eosinophils % (auto) 3.4 %; Hematocrit (blood only) 39.4 % (40.1-51.0); Hemoglobin 11.9 g/dl (14.0-18.0); Immature Granulocytes # (auto) 0.13 K/uL (0.00-0.02); Immature Granulocytes % (auto) 1.5 %; Lymphocytes % (auto) 10.3 %; Mean Corpuscular Hemoglobin 29.2 pg (25.0-34.0); Mean Corpuscular Hgb Conc 30.2 g/dL (32.0-36.0); Mean Corpuscular Volume 96.6 fL (80.0-100.0); Mean Platelet Volume 10.4 fL (9.4-12.4); Monocytes # (auto) 0.58 K/uL (0.24-0.82); Monocytes % (auto) 6.6 %; Neutrophils # (auto) 6.79 K/uL (1.4-6.5); Neutrophils % (auto) 77.6 %; Platelet Count 273 K/uL (130-400); RDW Coefficient of Variation 14.8 % (11.5-14.5); RDW Standard Deviation 52.5 fL (36.4-46.3); Red Blood Count 4.08 M/uL (4.63-6.08); White Blood Count 8.75 K/ul (4.8-10.8)
[2022-02-12 11:23] LABS: Albumin Globulin Ratio 0.9 (0.9-2); Albumin Level 3.5 gm/dl (3.4-5.0); BUN Creatinine Ratio 11.7 (10-20); Bilirubin,Total 0.5 mg/dl (0.2-1.0); Calcium 9.5 mg/dl (8.5-10.1); Creatinine Clr Calc Pharmacy 38.1 ml/min; Est GFR (African American) 30.8 ml/min; Est GFR (Non-African American) 26.6 ml/min; Magnesium 2.2 mg/dl (1.7-2.4); Potassium 4.3 mmol/L (3.5-5.1); Total Protein 7.5 gm/dl (6.0-8.3)
[2022-02-12 11:27] LABS: Troponin I High Sensitivity 9.6 pg/ml (0-20)
[2022-02-12 12:00] LABS: Adenovirus PCR Not Detected (NotDetected); Bordetella parapertussis PCR Not Detected (NotDetected); Bordetella pertussis PCR Not Detected (NotDetected); Chlamydia pneumoniae PCR Not Detected (NotDetected); Coronavirus 229E PCR Not Detected (NotDetected); Coronavirus CoV-2 (COVID19)PCR Not Detected (NotDetected); Coronavirus HKU1 PCR Not Detected (NotDetected); Coronavirus NL63 PCR Not Detected (NotDetected); Coronavirus OC43PCR Not Detected (NotDetected); Human Metapneumovirus PCR Not Detected (NotDetected); Influenza A PCR Not Detected (NotDetected); Influenza B PCR Not Detected (NotDetected); Mycoplasma pneumoniae PCR Not Detected (NotDetected); Parainfluenza Virus 1 PCR Not Detected (NotDetected); Parainfluenza Virus 2 PCR Not Detected (NotDetected); Parainfluenza Virus 3 PCR Not Detected (NotDetected); Parainfluenza Virus 4 PCR Not Detected (NotDetected); Respiratory Syncytial VirusPCR Not Detected (NotDetected); Rhinovirus/Enterovirus PCR Not Detected (NotDetected)
[2022-02-12 12:31] LABS: Appearance Urine Cloudy (Clear); Bacteria Urine Automated 1+ (Negative); Bilirubin Urine Negative (Negative); Blood Urine 1+ (Negative); Color Urine Yellow; Glucose Urine UA Negative (Negative); Ketones Urine Negative (Negative); Leukocyte Esterase Urine 3+ (Negative); Nitrite Urine Positive (Negative); Protein Urine Trace (Negative); RBC Urine Automated 0-4 /hpf (0-4); Specific Gravity Urine 1.014 (1.000-1.030); Urobilinogen Urine Negative (Negative); WBC Urine Automated >30 /hpf (0-5); pH Urine 5.5 (4.5-7.5)
[2022-02-12] MEDS ORDERED: CEFEPIME 2,000 MG/20 ML VIAL IV STA (12:44)
--- NOTE | 2022-02-12 14:19 | CT Scan Report ---
CT OF THE CHEST WITHOUT IV CONTRAST CLINICAL HISTORY: Shortness of breath. Cough. COMPARISON STUDY: Chest radiograph February 12, 2022. Chest radiograph June 30, 2021. CT of the abdo men and pelvis November 27, 2021. CT DOSE: 1183.59 mGy.cm TECHNIQUE: Axial images of the chest were obtained without IV contrast. Images were reviewed in the axial, sagittal, and coronal planes. IV contrast was not administered for this examination. Automat ed exposure control was utilized for the study. A dose lowering technique was utilized adhering to t he principles of ALARA. FINDINGS: There is a mildly enlarged right paratracheal lymph node on axial image 67 of 296. This no de measures 1.8 x 1.2 cm. No additional enlarged thoracic lymph nodes are present. Cardiomegaly is no guille. No pericardial effusion. A trace left pleural effusion with pleural thickening is unchanged sinc e prior abdominal CT's. This likely is chronic. Multifocal subpleural opacities within left lung with volume loss are noted. Left lower lobe abnormality is unchanged from earlier abdominal CTs. These fa vor round atelectasis. There is no consolidation to suggest pneumonia. Central airways are patent. Th ere is no pneumothorax. No suspicious lesions within the bony thorax are present. Visualized portions of the upper abdomen are unremarkable on this unenhanced exam. IMPRESSION: 1. No acute intrathoracic findings. 2. Stable small left pleural effusion with pleural thickening. This favors a chronic pleural effusion . Subpleural left lung opacities with volume loss favor round atelectasis. A follow-up chest CT in 6 months to ensure stability is recommended. 3. Indeterminate mildly enlarged right paratracheal lymph node which should be assessed on follow-up chest CT to ensure stability. ACT 112: Positive. There are findings on this exam that require communication between the performing entity and the patient following Patient Test Result Information Act ([place] Act 112) guidelines. Electronically signed by: Tyree Hall M.D. 02/12/2022 2:16 PM
[2022-02-12] MEDS ORDERED: FIRST - Mouthwash BLM 5 ML UDP PO ONE (15:24)
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
[2022-02-12] MEDS ORDERED: COUGH DROP (SUGAR FREE) LOZ 24 LOZ/1 BOX BUCCAL PRN ×2 (15:59→18:34)
--- NOTE | 2022-02-12 17:13 | Electrocardiogram Report ---
Test Reason : Blood Pressure : / mmHG Vent. Rate : 075 BPM Atrial Rate : 242 BPM P-R Int : 000 ms QRS Dur : 108 ms QT Int : 392 ms P-R-T Axes : -05 -30 067 degrees QTc Int : 437 ms Atrial fibrillation Left axis deviation Abnormal ECG When compared with ECG of 09-DEC-2021 15:34, Atrial fibrillation has replaced Sinus rhythm Nonspecific T wave abnormality, improved in Lateral leads Confirmed by Onofre Christiansen ([id number]) on 02/12/2022 5:12:36 PM Referred By: REFERRED SELF Confirmed By:Kamaljit Christiansen
[2022-02-12] MEDS ORDERED: GLUCOSE 10 TAB/TUBE PO PRN (17:31)
[2022-02-12] MEDS ORDERED: CARBOHYDRATES FOR HYPOGLYCEMIA PO PRN (17:31)
[2022-02-12] MEDS ORDERED: GABAPENTIN 100 MG CAP PO PRN (17:31)
[2022-02-12] MEDS ORDERED: GLUCAGON FOR INJ 1 MG VIAL SQ PRN (17:31)
[2022-02-12] MEDS ORDERED: DEXTROSE 50% 50 ML SYRINGE IV PRN (17:31)
[2022-02-12] MEDS ORDERED: GLUCOSE 40% GEL 15 GM TUBE PO PRN (17:31)
--- NOTE | 2022-02-12 17:34 | XRay Report ---
XR soft tissue neck HISTORY: 76 years-old Male sore throat, difficulty swallowing acute sore throat with dysphagia COMPARISON: Chest radiograph of same day and also 12/09/2021, chest CT 02/12/2022 TECHNIQUE: 2 views of the soft tissues of the neck. FINDINGS: Subcentimeter metallic density foreign body projects over the anterior right neck soft tissues. No pr evertebral edema. Degenerative changes of the imaged cervical spine. Unremarkable appearance of the e piglottis. Lung apices appear clear. IMPRESSION: 1. No prevertebral edema. 2. Subcentimeter metallic density foreign body projects over the superficial subcutaneous tissues of the right neck. ACT 112: Negative or not required by law. The above report was generated using voice recognition software. It may contain grammatical, syntax o r spelling errors. Electronically signed by: Neptali Mckeon M.D. 02/12/2022 5:33 PM
[2022-02-12] MEDS ORDERED: NURSING DECISION MEDICATION ONE (17:59)
[2022-02-12] MEDS: INSULIN ASPART PER UNIT SC SCH ×2 (18:48→22:27)
[2022-02-12] MEDS: ALBUTEROL 0.5% NEB SOLN 2.5 MG/0.5 ML VIAL NEB SCH (19:17)
[2022-02-12] MEDS ORDERED: NON-FORMULARY MEDICATION (Insulin Glargine [Lantus Solostar U-100 Insulin] 100 unit/mL (3 SQ SCH (21:00)
[2022-02-12] MEDS ORDERED: CEFEPIME 2,000 MG in SYRINGE 0 ML IV SCH (21:00)
[2022-02-12] MEDS: METOPROLOL SUCC 25MG EXT REL TAB PO SCH (22:19)
[2022-02-12] MEDS: APIXABAN 5 MG TABLET PO SCH (22:20)
[2022-02-12] MEDS: guaiFENesin 600 MG TABCR PO SCH (22:26)
[2022-02-12] MEDS: NYSTATIN 500,000 UNIT TAB PO SCH ×2 (22:26→22:27)
[2022-02-12] MEDS: TAMSULOSIN HCL 0.4 MG CAP PO SCH (22:27)
[2022-02-13] MEDS ORDERED: CEFEPIME 1,000 MG in SYRINGE 0 ML IV SCH (01:00)
[2022-02-13] MEDS: ALBUTEROL 0.5% NEB SOLN 2.5 MG/0.5 ML VIAL NEB SCH ×4 (01:20→19:36)
[2022-02-13] MEDS: LEVOTHYROXINE SODIUM 88 MCG TABLET PO SCH (06:09)
[2022-02-13] MEDS ORDERED: PERFLUTREN LIPID MICROSPHERE (DEFINITY) IV ONE (09:03)
[2022-02-13] MEDS: INSULIN ASPART PER UNIT SC SCH ×4 (09:13→21:18)
[2022-02-13] MEDS: METOPROLOL SUCC 25MG EXT REL TAB PO SCH ×2 (09:16→20:41)
[2022-02-13] MEDS: PANTOprazole 40 MG TAB PO SCH (09:16)
[2022-02-13] MEDS: APIXABAN 5 MG TABLET PO SCH ×2 (09:17→20:41)
[2022-02-13] MEDS: NYSTATIN 500,000 UNIT TAB PO SCH ×4 (09:17→20:41)
[2022-02-13] MEDS: guaiFENesin 600 MG TABCR PO SCH ×2 (09:17→20:40)
[2022-02-13] MEDS: CHOLECALCIFEROL 1,000 UNITS 25 MCG TAB PO SCH (09:18)
[2022-02-13] MEDS: FERROUS SULFATE 325 MG TAB PO SCH (09:18)
[2022-02-13] MEDS: FOLIC ACID 1 MG TAB PO SCH (09:18)
[2022-02-13] MEDS: lisinopril 5 MG TAB PO SCH (09:19)
--- NOTE | 2022-02-13 09:41 | Infectious Disease Consult ---
Date of Consultation February 13, 2022 Assessment & Plan (1) Asymptomatic bacteriuria: Plan 76 yo M with a history of CKD, HTN, DM2, pAfib, hypothyroidism, HLD, BPH, recurrent UTIs with Pseudomonas who presented on 02/12 with URI symptoms, found to have urine culture growing Pseudomonas. He has had multiple urine cultures growing Pseudomonas since June 2021. More recently, he was admitted 11/27-11/30 for E coli gastroenteritis and was treated with Zosyn x 3 days for UTI vs colonization. He was also admitted 12/09-12/16 for nausea, weakness, and was treated with cefepime x 7 days for the UCx +PsA. Recent urine cultures show the PsA has intermediate susceptibility to fluoroquinolones. It does not appear that he had overt urinary symptoms during those admissions. He is now admitted with upper respiratory symptoms. He denies any urinary symptoms. It is unclear why a urine sample was collected, but the UA is positive and the urine culture is growing GNRs. Given that he does not have any urinary symptoms, I would view the positive urine culture as asymptomatic bacteriuria, rather than a UTI. 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 It will be important to manage the urinary retention, as incomplete bladder emptying predisposes him to colonization and UTIs. Treating asymptomatic bacteriuria will lead to the development of progressive antibiotic resistance--the Pseudomonas already has only intermediate susceptibility to fluoroquinolones. Problems: #Asymptomatic bacteriuria #History of Pseudomonas UTI #Antibiotic intolerance: cipro--upset stomach Recommendations: - Because the patient has no urinary symptoms, I would not treat the GNR in the urine culture - Will sign off. Please reach out with any further questions Consultation Information Consultation was provided via telemedicine using two-way real-time interactive telecommunication between the patient and the telemedicine provider. For the duration of the visit, the provider was performing the assessment from a different facility than the patient. This includesuse of bluetooth stethoscope forauscultationperformed by the telepresenter that the telemedicine provider can hear if described in the physical exam. Recreation Therapy Teacher contact information: Please call [facility] . (Phone Number For Physician Use Only) After establishing a telemedicine visit, patient was: Patient was verified with two unique identifiers, Patient/authorized rep acknowledged consent and understanding and Gave permission to continue telehealth session Time Spent w Inpatient: 20 minutes History of Present Illness Reason for Consultation: Positive UA, history of Pseudomonas UTI Attending Physician: Desiree Nuñez MD History of Present Illness 76 yo M with a history of CKD, HTN, DM2, pAfib, hypothyroidism, HLD, BPH, recurrent UTIs with Pseudomonas who presented on 02/12 with shortness of breath, cough, weakness, nausea, and sore throat. He reported several days of URI symptoms including congestion, sore throat, odynophagia. Of note, he was recently admitted from 11/27-11/30 for E coli gastroenteritis, and was also noted to have UCx growing Pseudomonas. He had no urinary symptoms. He was treated with Zosyn x 3 days for possible UTI vs colonization. He was also admitted 12/09-12/16 for nausea, stomachache, and generalized weakness. His urine culture again grew Pseudomonas with intermediate susceptibility to fluoroquinolones, and he was treated with 7 days of cefepime. He had no specific urinary symptoms at that time. On presentation this admission, he was afebrile and hemodynamically stable. He reportedly had a brief episode of hypoxia to the 80s on RA, but was stable on RA subsequently. Labs demonstrated WBC 8.75, Cr 2.3 (at baseline). RVP negative. UA with >30 WBCs, 3+ leuk est, +nitrites, 10-20 epi. CXR showed no acute disease. CT chest without contrast showed no acute findings. He was given a dose of cefepime. Per notes, pt states he saw outpatient urologist at [facility] after his recent admission, and they suspect he is not completely emptying his bladder. They prescribed him Flomax, but he had not started it yet prior to this admission. On my evaluation, he reports he is feeling lousy because of his sore throat. He states the cough drops are not working. He denies shortness of breath. He denies dysuria, urinary frequency, urinary hesitancy. He states he just started Flomax yesterday and feels like it may be helping with urinary retention, as he is urinating larger volumes. Allergies Allergy/AdvReac Type Severity Reaction Status Date / Time ciprofloxacin [From Cipro] AdvReac Intermediate Upset Verified 02/12/22 15:08 Stomach, Nausea, GI Discomfort Home Medications Medication Instructions Recorded Confirmed Type apixaban 5 mg tablet 5 mg PO BID 04/25/21 02/12/22 History cholecalciferol (vitamin D3) 25 25 mcg PO QAM 04/25/21 02/12/22 History mcg (1,000 unit) capsule folic acid 1 mg tablet 1 mg PO QAM 04/25/21 02/12/22 History levothyroxine 88 mcg capsule 88 mcg PO DAILYBB 04/25/21 02/12/22 History metoprolol succinate 25 mg 12.5 mg PO BID 05/05/21 02/12/22 History tablet,extended release 24 hr ferrous sulfate 325 mg (65 mg 325 mg PO QAM 06/30/21 02/12/22 History iron) tablet (FeroSul) gabapentin 100 mg capsule 100 mg PO QID PRN Nerve Pain 06/30/21 02/12/22 History trazodone 50 mg tablet 50 mg PO HS PRN Sleep 06/30/21 02/12/22 History lisinopril 5 mg tablet 5 mg PO DAILY #90 tabs 01/08/22 02/12/22 Rx pantoprazole 40 mg tablet,delayed 40 mg PO DAILY #30 tabs 01/22/22 02/12/22 Rx release insulin glargine 100 unit/mL (3 16 unit subcut BID 02/12/22 02/12/22 History mL) subcutaneous pen (Lantus Solostar U-100 Insulin) semaglutide 0.25 mg or 0.5 mg (2 0.25 mg subcut WK 02/12/22 02/12/22 History mg/1.5 mL) subcutaneous pen injector (Ozempic) Patient History Medical History Age-related nuclear cataract, right eye Anemia due to chronic kidney disease Chronic kidney disease, stage 4 (severe) Stage 3b chronic kidney disease Vitamin D deficiency Surgical History No significant past surgical history Family History Other Family history non-contributory Social History Smoking Status: Never smoker Do You Dip or Chew Tobacco: No; Hx Alcohol Use: No Hx Substance Use: No Preferred Language: Malian Communication Ability: Effective Sewing Teacher Required: No Beliefs That Will Affect Care: None marital status: Unknown Current Living Situation: Alone Current Living Situation Comment: lives alone is a studio apartment with 2 JERED Other Information That Helps Us Care for You: No Feels Safe at Home: Yes Safety Concerns: Feels Safe At This Time Assistive Devices: Cane, Oxygen - at Night and Walker Review of System A complete ROS was performed and is negative except as mentioned in the HPI. Physical Exam Physical Exam: GEN: Well-appearing, in NAD. HEENT: Normocephalic, atraumatic. RESP: No increased work of breathing ABD: Soft, non-distended. Non-tender to palpation. SKIN: No lesions or rashes on exposed skin. NEURO: Alert and oriented. Answers all questions appropriately. Speech not slurred. PSYCH: Normal mood, affect appropriate. Results & Data ([facility]) Vital Signs (Past 12 Hours) Vital Signs Temp Pulse Resp BP Pulse Ox O2 Del Method O2 Flow Rate 02/13/22 09:15 87 123/76 02/13/22 08:06 36.9 C 82 18 121/55 L 100 Nasal Cannula 2 02/13/22 07:03 80 19 99 Nasal Cannula 4 02/13/22 01:20 85 18 99 Nasal Cannula 4 02/12/22 22:30 Room Air Laboratory Results Laboratory Results - last 48 hr 02/12/22 02/12/22 02/12/22 10:40 10:40 10:40 WBC 8.75 RBC 4.08 L Hgb 11.9 L Hct 39.4 L MCV 96.6 MCH 29.2 MCHC 30.2 L RDW Std Deviation 52.5 H RDW Coeff of Yolanda 14.8 H Plt Count 273 MPV 10.4 Immature Gran % (Auto) 1.5 Neut % (Auto) 77.6 Lymph % (Auto) 10.3 [place] % (Auto) 6.6 Eos % (Auto) 3.4 Baso % (Auto) 0.6 Neut # (Auto) 6.79 H Lymph # (Auto) 0.90 L [place] # (Auto) 0.58 Eos # (Auto) 0.30 Baso # (Auto) 0.05 Immature Gran # (Auto) 0.13 H Sodium 141 Potassium 4.3 Chloride 108 H Carbon Dioxide 27 Anion Gap 6 BUN 27 H Creatinine 2.30 H Est Cr Clr Drug Dosing 38.1 Est GFR ( Amer) 30.8 Est GFR (Non-Af Amer) 26.6 BUN/Creatinine Ratio 11.7 Glucose 79 POC Glucose Calcium 9.5 Magnesium 2.2 Total Bilirubin 0.5 AST 12 L ALT 12 Alkaline Phosphatase 51 Troponin I High Sens 9.6 D B-Natriuretic Peptide 108 H Total Protein 7.5 Albumin 3.5 Globulin 4.0 Albumin/Globulin Ratio 0.9 TSH Urine Color Urine Appearance Urine pH Ur Specific Bern Urine Protein Urine Glucose (UA) Urine Ketones Urine Blood Urine Nitrite Urine Bilirubin Urine Urobilinogen Ur Leukocyte Esterase Urine WBC (Auto) Urine RBC (Auto) U Hyaline Cast (Auto) U Epithel Cells (Auto) Urine Bacteria (Auto) Adenovirus (PCR) B. pertussis DNA (PCR) B.parapertussis DNA PCR C. pneumoniae DNA (PCR) Coronavirus OC43 (PCR) Coronavirus HKU1 (PCR) Coronavirus 229E (PCR) SARS-CoV-2 (PCR) Coronavirus NL63 (PCR) Human Metapneumovir PCR Influenza Type A (PCR) Influenza Type B (PCR) M. pneumoniae (PCR) Parainfluenza 1 (PCR) Parainfluenza 2 (PCR) Parainfluenza 3 (PCR) Parainfluenza 4 (PCR) RSV (PCR) Entero/Rhino (PCR) 02/12/22 02/12/22 02/12/22 10:40 10:40 12:10 WBC RBC Hgb Hct MCV MCH MCHC RDW Std Deviation RDW Coeff of Yolanda Plt Count MPV Immature Gran % (Auto) Neut % (Auto) Lymph % (Auto) [place] % (Auto) Eos % (Auto) Baso % (Auto) Neut # (Auto) Lymph # (Auto) [place] # (Auto) Eos # (Auto) Baso # (Auto) Immature Gran # (Auto) Sodium Potassium Chloride Carbon Dioxide Anion Gap BUN Creatinine Est Cr Clr Drug Dosing Est GFR ( Amer) Est GFR (Non-Af Amer) BUN/Creatinine Ratio Glucose POC Glucose Calcium Magnesium Total Bilirubin AST ALT Alkaline Phosphatase Troponin I High Sens B-Natriuretic Peptide Total Protein Albumin Globulin Albumin/Globulin Ratio TSH 2.329 Urine Color Yellow Urine Appearance Cloudy A Urine pH 5.5 Ur Specific Bern 1.014 Urine Protein Trace H Urine Glucose (UA) Negative Urine Ketones Negative Urine Blood 1+ H Urine Nitrite Positive A Urine Bilirubin Negative Urine Urobilinogen Negative Ur Leukocyte Esterase 3+ H Urine WBC (Auto) >30 H Urine RBC (Auto) 0-4 U Hyaline Cast (Auto) 1-5 U Epithel Cells (Auto) 10-20 H Urine Bacteria (Auto) 1+ H Adenovirus (PCR) Not Detected B. pertussis DNA (PCR) Not Detected B.parapertussis DNA PCR Not Detected C. pneumoniae DNA (PCR) Not Detected Coronavirus OC43 (PCR) Not Detected Coronavirus HKU1 (PCR) Not Detected Coronavirus 229E (PCR) Not Detected SARS-CoV-2 (PCR) Not Detected Coronavirus NL63 (PCR) Not Detected Human Metapneumovir PCR Not Detected Influenza Type A (PCR) Not Detected Influenza Type B (PCR) Not Detected M. pneumoniae (PCR) Not Detected Parainfluenza 1 (PCR) Not Detected Parainfluenza 2 (PCR) Not Detected Parainfluenza 3 (PCR) Not Detected Parainfluenza 4 (PCR) Not Detected RSV (PCR) Not Detected Entero/Rhino (PCR) Not Detected 02/12/22 02/12/22 02/12/22 13:12 15:09 17:26 WBC RBC Hgb Hct MCV MCH MCHC RDW Std Deviation RDW Coeff of Yolanda Plt Count MPV Immature Gran % (Auto) Neut % (Auto) Lymph % (Auto) [place] % (Auto) Eos % (Auto) Baso % (Auto) Neut # (Auto) Lymph # (Auto) [place] # (Auto) Eos # (Auto) Baso # (Auto) Immature Gran # (Auto) Sodium Potassium Chloride Carbon Dioxide Anion Gap BUN Creatinine Est Cr Clr Drug Dosing Est GFR ( Amer) Est GFR (Non-Af Amer) BUN/Creatinine Ratio Glucose POC Glucose 68 L* 75 77 Calcium Magnesium Total Bilirubin AST ALT Alkaline Phosphatase Troponin I High Sens B-Natriuretic Peptide Total Protein Albumin Globulin Albumin/Globulin Ratio TSH Urine Color Urine Appearance Urine pH Ur Specific Bern Urine Protein Urine Glucose (UA) Urine Ketones Urine Blood Urine Nitrite Urine Bilirubin Urine Urobilinogen Ur Leukocyte Esterase Urine WBC (Auto) Urine RBC (Auto) U Hyaline Cast (Auto) U Epithel Cells (Auto) Urine Bacteria (Auto) Adenovirus (PCR) B. pertussis DNA (PCR) B.parapertussis DNA PCR C. pneumoniae DNA (PCR) Coronavirus OC43 (PCR) Coronavirus HKU1 (PCR) Coronavirus 229E (PCR) SARS-CoV-2 (PCR) Coronavirus NL63 (PCR) Human Metapneumovir PCR Influenza Type A (PCR) Influenza Type B (PCR) M. pneumoniae (PCR) Parainfluenza 1 (PCR) Parainfluenza 2 (PCR) Parainfluenza 3 (PCR) Parainfluenza 4 (PCR) RSV (PCR) Entero/Rhino (PCR) 02/12/22 02/13/22 22:24 08:05 WBC RBC Hgb Hct MCV MCH MCHC RDW Std Deviation RDW Coeff of Yolanda Plt Count MPV Immature Gran % (Auto) Neut % (Auto) Lymph % (Auto) [place] % (Auto) Eos % (Auto) Baso % (Auto) Neut # (Auto) Lymph # (Auto) [place] # (Auto) Eos # (Auto) Baso # (Auto) Immature Gran # (Auto) Sodium Potassium Chloride Carbon Dioxide Anion Gap BUN Creatinine Est Cr Clr Drug Dosing Est GFR ( Amer) Est GFR (Non-Af Amer) BUN/Creatinine Ratio Glucose POC Glucose 93 92 Calcium Magnesium Total Bilirubin AST ALT Alkaline Phosphatase Troponin I High Sens B-Natriuretic Peptide Total Protein Albumin Globulin Albumin/Globulin Ratio TSH Urine Color Urine Appearance Urine pH Ur Specific Bern Urine Protein Urine Glucose (UA) Urine Ketones Urine Blood Urine Nitrite Urine Bilirubin Urine Urobilinogen Ur Leukocyte Esterase Urine WBC (Auto) Urine RBC (Auto) U Hyaline Cast (Auto) U Epithel Cells (Auto) Urine Bacteria (Auto) Adenovirus (PCR) B. pertussis DNA (PCR) B.parapertussis DNA PCR C. pneumoniae DNA (PCR) Coronavirus OC43 (PCR) Coronavirus HKU1 (PCR) Coronavirus 229E (PCR) SARS-CoV-2 (PCR) Coronavirus NL63 (PCR) Human Metapneumovir PCR Influenza Type A (PCR) Influenza Type B (PCR) M. pneumoniae (PCR) Parainfluenza 1 (PCR) Parainfluenza 2 (PCR) Parainfluenza 3 (PCR) Parainfluenza 4 (PCR) RSV (PCR) Entero/Rhino (PCR) Diagnostic Findings Chest X-Ray 02/12/22 10:18 XR chest 1V portable HISTORY: 76 years-old Male sob, cough acute cough with shortness of breath COMPARISON: Chest radiograph 12/09/2021, CT abdomen and pelvis 11/27/2021. TECHNIQUE: AP view of the chest FINDINGS: Cardiac silhouette is enlarged. Pulmonary vascular congestion. Atherosclerosis of the aorta. Unchanged blunting of the costophrenic angles. Chronic left lung volume loss with hazy opacities suggestive of atelectasis/scarring. IMPRESSION: Stable appearance of the chest. No acute process. ACT 112: Negative or not required by law. The above report was generated using voice recognition software. It may contain grammatical, syntax or spelling errors. Electronically signed by: Neptali Mckeon M.D. 02/12/2022 10:[address] 02/12/22 12:08 CT OF THE CHEST WITHOUT IV CONTRAST CLINICAL HISTORY: Shortness of breath. Cough. COMPARISON STUDY: Chest radiograph February 12, 2022. Chest radiograph June 30, 2021. CT of the abdomen and pelvis November 27, 2021. CT DOSE: 1183.59 mGy.cm TECHNIQUE: Axial images of the chest were obtained without IV contrast. Images were reviewed in the axial, sagittal, and coronal planes. IV contrast was not administered for this examination. Automated exposure control was utilized for the study. A dose lowering technique was utilized adhering to the principles of ALARA. FINDINGS: There is a mildly enlarged right paratracheal lymph node on axial image 67 of 296. This node measures 1.8 x 1.2 cm. No additional enlarged thoracic lymph nodes are present. Cardiomegaly is noted. No pericardial effusion. A trace left pleural effusion with pleural thickening is unchanged since prior abdominal CT's. This likely is chronic. Multifocal subpleural opacities within left lung with volume loss are noted. Left lower lobe abnormality is unchanged from earlier abdominal CTs. These favor round atelectasis. There is no consolidation to suggest pneumonia. Central airways are patent. There is no pneumothorax. No suspicious lesions within the bony thorax are present. Visualized portions of the upper abdomen are unremarkable on this unenhanced exam. IMPRESSION: 1. No acute intrathoracic findings. 2. Stable small left pleural effusion with pleural thickening. This favors a chronic pleural effusion. Subpleural left lung opacities with volume loss favor round atelectasis. A follow-up chest CT in 6 months to ensure stability is recommended. 3. Indeterminate mildly enlarged right paratracheal lymph node which should be assessed on follow-up chest CT to ensure stability. ACT 112: Positive. There are findings on this exam that require communication between the performing entity and the patient following Patient Test Result Information Act ([place] Act 112) guidelines. Electronically signed by: Tyree Hall M.D. 02/12/2022 2:16 PM Soft Tissue Neck X-Ray 02/12/22 15:58 XR soft tissue neck HISTORY: 76 years-old Male sore throat, difficulty swallowing acute sore throat with dysphagia COMPARISON: Chest radiograph of same day and also 12/09/2021, chest CT 02/12/2022 TECHNIQUE: 2 views of the soft tissues of the neck. FINDINGS: Subcentimeter metallic density foreign body projects over the anterior right neck soft tissues. No prevertebral edema. Degenerative changes of the imaged cervical spine. Unremarkable appearance of the epiglottis. Lung apices appear clear. IMPRESSION: 1. No prevertebral edema. 2. Subcentimeter metallic density foreign body projects over the superficial subcutaneous tissues of the right neck. ACT 112: Negative or not required by law. The above report was generated using voice recognition software. It may contain grammatical, syntax or spelling errors. Electronically signed by: Neptali Mckeon M.D. 02/12/2022 5:33 PM Microbiology 02/12/22 12:10 Urine,Clean Catch Urine Culture - Preliminary Gram negative bacilli 12/09 UCx: Pseudomonas P aerugino RX M.I.C. --- --------- Cefepime S <=2 Ceftazidime S 4 Ciprofloxacin I 1 Gentamicin S <=4 Levofloxacin I 2 Meropenem S <=1 Tobramycin S <=4 Pip/Tazo S <=16 11/27 UCx: Pseudomonas P aerugino RX M.I.C. --- --------- Cefepime S <=2 Ceftazidime S 4 Ciprofloxacin I 1 Gentamicin S <=4 Levofloxacin I 2 Meropenem S <=1 Tobramycin S <=4 Pip/Tazo S <=16 07/26 UCx: Pseudomonas P aerugino RX M.I.C. --- --------- Cefepime S <=2 Ceftazidime S <=1 Ciprofloxacin I 1 Gentamicin S <=4 Levofloxacin I 2 Meropenem S 2 Tobramycin S <=4 Pip/Tazo S <=16 06/30 UCx: Pseudomonas P aerugino RX M.I.C. --- --------- Cefepime S <=2 Ceftazidime S <=1 Ciprofloxacin S <=0.25 Gentamicin S <=4 Levofloxacin S <=0.5 Meropenem S <=1 Tobramycin S <=4 Pip/Tazo S <=16 Medications Administered Current Inpatient Medications Acetaminophen (Acetaminophen 325 Mg Tab) 650 mg PO Q4H PRN PRN Reason: Pain (1,2,3) Or Fever Stop: 03/14/22 17:30 Albuterol (Albuterol 0.5% Neb Soln 2.5 Mg/0.5 Ml Vial) 2.5 mg NEB Q6R LEE; Protocol Stop: 03/14/22 18:59 Last Admin: 02/13/22 07:01 Dose: 2.5 mg Apixaban (Apixaban 5 Mg Tablet) 5 mg PO BID LEE Stop: 03/14/22 20:59 Last Admin: 02/13/22 09:17 Dose: 5 mg Dextrose (Dextrose 50% 50 Ml Syringe) 25 - 50 ml IV UD PRN; Protocol PRN Reason: Hypoglycemia Protocol Stop: 03/14/22 17:30 Ferrous Sulfate (Ferrous Sulfate 325 Mg Tab) 325 mg PO QAM [facility] Stop: 03/15/22 08:59 Last Admin: 02/13/22 09:18 Dose: 325 mg Folic Acid (Folic Acid 1 Mg Tab) 1 mg PO QAM [facility]EE Stop: 03/15/22 08:59 Last Admin: 02/13/22 09:18 Dose: 1 mg Gabapentin (Gabapentin 100 Mg Cap) 100 mg PO QID PRN PRN Reason: Nerve Pain Stop: 03/14/22 17:30 Glucagon (Glucagon For Inj 1 Mg Vial) 1 mg SQ UD PRN; Protocol PRN Reason: Hypoglycemia Protocol Stop: 03/14/22 17:30 Glucose (Glucose 40% Gel 15 Gm Tube) 15 - 30 gm PO UD PRN; Protocol PRN Reason: Hypoglycemia Protocol Stop: 03/14/22 17:30 Glucose (Glucose 10 Tab/Tube) 4 - 8 tab PO UD PRN; Protocol PRN Reason: Hypoglycemia Treatment Stop: 03/14/22 17:30 Guaifenesin (Guaifenesin 600 Mg Tabcr) 600 mg PO Q12 [facility] Stop: 03/14/22 16:15 Last Admin: 02/13/22 09:17 Dose: 600 mg Insulin Aspart (Insulin Aspart Per Unit) 0 units SC ACHS LEE Stop: 03/14/22 17:30 Last Admin: 02/13/22 09:13 Dose: Not Given Levothyroxine Sodium (Levothyroxine Sodium 88 Mcg Tablet) 88 mcg PO DAILYBB [facility] Stop: 03/15/22 06:29 Last Admin: 02/13/22 06:09 Dose: 88 mcg Lisinopril (Lisinopril 5 Mg Tab) 5 mg PO DAILY [facility] Stop: 03/15/22 08:59 Last Admin: 02/13/22 09:19 Dose: 5 mg Menthol (Cough Drop (Sugar Free) Juan Francisco 24 Juan Francisco/1 Box) 1 juan francisco BUCCAL Q30M PRN PRN Reason: Sore Throat Stop: 03/14/22 15:58 Menthol (Cough Drop (Sugar Free) Juan Francisco 24 Juan Francisco/1 Box) 1 juan francisco BUCCAL Q1H PRN PRN Reason: Cough Stop: 03/14/22 18:33 Metoprolol Succinate (Metoprolol Succ 25mg Ext Rel Tab) 12.5 mg PO BID [facility] Stop: 03/14/22 20:59 Last Admin: 02/13/22 09:16 Dose: 12.5 mg Miscellaneous (Carbohydrates For Hypoglycemia ) 15 - 30 gm PO UD PRN PRN Reason: Hypoglycemia Protocol Stop: 03/14/22 17:30 Nystatin (Nystatin 500,000 Unit Tab) 500,000 units PO QID [facility] Stop: 02/22/22 16:59 Last Admin: 02/13/22 09:17 Dose: 500,000 units Pantoprazole Sodium (Pantoprazole 40 Mg Tab) 40 mg PO DAILY [facility] Stop: 03/15/22 08:59 Last Admin: 02/13/22 09:16 Dose: 40 mg Tamsulosin HCl (Tamsulosin Hcl 0.4 Mg Cap) 0.4 mg PO HS [facility] Stop: 03/14/22 16:04 Last Admin: 02/12/22 22:27 Dose: 0.4 mg Trazodone HCl (Trazodone Hcl 50 Mg Tab) 50 mg PO HS PRN PRN Reason: Sleep Stop: 03/14/22 17:30 Vitamin D (Cholecalciferol 1,000 Units 25 Mcg Tab) 1,000 units PO [facility] Stop: 03/15/22 08:59 Last Admin: 02/13/22 09:18 Dose: 1,000 units
[2022-02-13 11:07] LABS: Hemoglobin 10.9 g/dl (14.0-18.0); Mean Corpuscular Hemoglobin 29.5 pg (25.0-34.0); Mean Corpuscular Hgb Conc 31.1 g/dL (32.0-36.0); Mean Corpuscular Volume 94.9 fL (80.0-100.0); Mean Platelet Volume 10.4 fL (9.4-12.4); Platelet Count 248 K/uL (130-400); RDW Coefficient of Variation 15.1 % (11.5-14.5); RDW Standard Deviation 52.6 fL (36.4-46.3); Red Blood Count 3.69 M/uL (4.63-6.08); White Blood Count 8.44 K/ul (4.8-10.8)
[2022-02-13 11:28] LABS: BUN Creatinine Ratio 11.6 (10-20); Calcium 9.2 mg/dl (8.5-10.1); Creatinine Clr Calc Pharmacy 37.8 ml/min; Est GFR (African American) 30.5 ml/min; Est GFR (Non-African American) 26.3 ml/min; Potassium 4.6 mmol/L (3.5-5.1)
--- NOTE | 2022-02-13 11:43 | XCELERA ---
[id number] [id number]
--- NOTE | 2022-02-13 13:29 | Hospitalist Progress Note ---
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 Still unsure if this is chronic colonization or true infection at this time. consulted ID for assistance (4) Dysphagia: Plan: -Patient has been experiencing progressive dysphagia over the past week -Having difficulty swallowing solids but no airway compromise or stridor on exam -Pharynx exam is difficult due to head/neck anatomy -Patient is higher risk for candidiasis infection due to DM, will start Nystatin Swish and swallow Q6H X 7 days and monitor for improvement - soft tissue xray of the neck showed questionable metallic object -Will get barium swallow -will consult GI (5) Anemia: Plan: -Stable -Continue Vitamin D and ferrous sulfate (6) Chronic kidney disease, stage 4 (severe): Plan: -Stable -Nephrology restarted Lisinopril on follow up visit after last admission -See anemia (7) Hypothyroidism: Plan: -continue levothyroxine (8) Paroxysmal atrial fibrillation: Plan: -Currently rate controlled -Continue metoprolol and Eliquis (9) Hyperlipidemia: Plan: -Continue statin (10) Essential hypertension: Plan: -Continue lisinopril and metoprolol (11) BPH (benign prostatic hyperplasia): Plan: -Starting flomax today as recommended by Urology (12) Heartburn: Plan: -Continue omeprazole (13) Diabetes: Plan: -Will decreased home Lantus dose from 16 units BID to 10 units BID for now as he was hypoglycemic on arrival -SSI with correction factor of 30 -Adjust regimen as needed Plan continue hospitalization Admission and Anticipated Discharge Date Admission Date: February 12, 2022 Subjective patient seen and examined, complains of sore throat and right ear pain Review of Systems Review of Systems: All systems reviewed are negative, apart from the ones contained in the history. Physical Exam Physical Exam: The patient is awake, alert and oriented 3, well developed and well nourished, normocephalic and atraumatic, lying in bed and in no acute distress. HEENT--PERRL, EOMI, mucous membranes and oropharynx mildly dry Neck--supple. No JVD. No bruits. Thyroid normal, trachea midline, no adenopathy. Heart--normal S1 and S2. No murmurs, rubs or gallops. Lungs--clear bilaterally, no respiratory distress, no accessory muscle use. Abdomen--normal bowel sounds and soft. Mild epigastric and left sided abdominal pain Extremities--no cyanosis or clubbing. No edema. Dermatologic--normal skin turgor, normal color, no abnormal lymph nodes, no rash. Neurologic--cranial nerves II through XII grossly intact. Rheumatologic--normal range of motion. Psychiatric--normal affect. Results & Data Results & Data ([facility]) Vital Signs (Past 12 Hours) Vital Signs Temp Pulse Resp BP Pulse Ox O2 Del Method O2 Flow Rate 02/13/22 12:11 80 18 100 Nasal Cannula 4 02/13/22 07:35 Nasal Cannula 4 02/13/22 09:15 87 123/76 02/13/22 08:06 98.4 F 82 18 121/55 L 100 Nasal Cannula 2 02/13/22 07:03 80 19 99 Nasal Cannula 4 PG Care Time/CCT Total # of Minutes Spent Total Time Spent with Patient: Total time spent is greater than 50% in coordination of care (as documented) at patient's floor/unit and/or counseling patient: Coding Level of Care Code 77461 Subseq Hosp Care Lvl 2 Diagnoses Hypoxia R09.02 Sore throat J02.9 Urinary tract infection N39.0 Hematuria presence: without hematuria Urinary tract infection type: site unspecified Dysphagia R13.10 Anemia D64.9 Chronic kidney disease, stage 4 (severe) N18.4 Hypothyroidism E03.9 Hypothyroidism type: unspecified Paroxysmal atrial fibrillation I48.0 Hyperlipidemia E78.5 Essential hypertension I10 BPH (benign prostatic hyperplasia) N40.0 Heartburn R12 Diabetes E11.9 Time Spent (min) 35 (1) Urinary tract infection Hematuria presence: without hematuria Urinary tract infection type: site unspecified Qualified Code(s): N39.0 - Urinary tract infection, site not specified (2) Hypothyroidism Hypothyroidism type: unspecified Qualified Code(s): E03.9 - Hypothyroidism, unspecified
--- NOTE | 2022-02-13 18:25 | Magnetic Resonance Report ---
MR brain IAC wo con CLINICAL HISTORY: Otalgia. COMPARISON STUDY: No previous studies for comparison. TECHNIQUE: Utilizing a 1.5 Coral magnet and dedicated coil, multiplanar, multiecho imaging of the bra in was performed without intravenous contrast. Thin cut imaging through the internal artery canals wa s performed. FINDINGS: This study is mildly compromised by motion artifact. There are no foci of restricted diffus ion to suggest acute infarct. No acute intracranial hemorrhage, midline shift or mass effect is prese nt. There is mild atrophy. Numerous white matter T2 hyperintense foci suggest moderate small vessel d isease. No intracranial masses identified on this unenhanced exam. Calvarial signal is normal. There is a focus of susceptibility artifact within left frontal scalp. Right frontal sinus is opacified. Th ere is fluid within the right anterior ethmoid sinuses. There is no mastoid effusion. Internal audito ry canals are suboptimally assessed on this unenhanced exam but no abnormalities are identified. Flow -voids for the major intracranial vessels are present. IMPRESSION: 1. No acute intracranial findings. 2. Suboptimal evaluation of the internal auditory canals on unenhanced exam but no abnormalities iden tified. 3. Opacified right frontal sinus and anterior right ethmoid sinuses. 4. No significant mastoid effusion. 5. Moderate small vessel disease. ACT 112: Negative or not required by law. Electronically signed by: Tyree Hall M.D. 02/13/2022 6:23 PM
[2022-02-13] MEDS: ACETAMINOPHEN 325 MG TAB PO PRN (19:24)
[2022-02-13] MEDS: TAMSULOSIN HCL 0.4 MG CAP PO SCH (20:40)
[2022-02-13] MEDS: BENZONATATE 100 MG CAPSULE PO SCH (23:26)
[2022-02-14] MEDS: CHLORASEPTIC 1.4% SOLN 180 ML BTL MT PRN ×3 (00:35→12:56)
[2022-02-14] MEDS: ACETAMINOPHEN 325 MG TAB PO PRN ×3 (00:45→21:09)
[2022-02-14] MEDS: ALBUTEROL 0.5% NEB SOLN 2.5 MG/0.5 ML VIAL NEB SCH ×4 (01:27→19:53)
[2022-02-14] MEDS: LEVOTHYROXINE SODIUM 88 MCG TABLET PO SCH (05:39)
[2022-02-14] MEDS: INSULIN ASPART PER UNIT SC SCH ×4 (05:39→21:36)
[2022-02-14 07:50] LABS: Hematocrit (blood only) 34.3 % (40.1-51.0); Hemoglobin 10.6 g/dl (14.0-18.0); Mean Corpuscular Hemoglobin 29.5 pg (25.0-34.0); Mean Corpuscular Hgb Conc 30.9 g/dL (32.0-36.0); Mean Corpuscular Volume 95.5 fL (80.0-100.0); Mean Platelet Volume 10.3 fL (9.4-12.4); Platelet Count 247 K/uL (130-400); RDW Coefficient of Variation 15.1 % (11.5-14.5); RDW Standard Deviation 53.4 fL (36.4-46.3); Red Blood Count 3.59 M/uL (4.63-6.08); White Blood Count 7.21 K/ul (4.8-10.8)
[2022-02-14 08:35] LABS: Creatinine Clr Calc Pharmacy 37.5 ml/min; Est GFR (African American) 30.2 ml/min; Potassium 4.6 mmol/L (3.5-5.1)
[2022-02-14] MEDS: guaiFENesin 600 MG TABCR PO SCH ×2 (09:39→21:07)
[2022-02-14] MEDS: APIXABAN 5 MG TABLET PO SCH ×2 (09:40→21:07)
[2022-02-14] MEDS: METOPROLOL SUCC 25MG EXT REL TAB PO SCH ×2 (09:40→21:06)
[2022-02-14] MEDS: BENZONATATE 100 MG CAPSULE PO SCH ×3 (09:40→21:07)
[2022-02-14] MEDS: lisinopril 5 MG TAB PO SCH (09:40)
[2022-02-14] MEDS: PANTOprazole 40 MG TAB PO SCH (09:40)
[2022-02-14] MEDS: FERROUS SULFATE 325 MG TAB PO SCH (09:40)
[2022-02-14] MEDS: NYSTATIN 500,000 UNIT TAB PO SCH ×4 (09:40→21:07)
[2022-02-14] MEDS: CHOLECALCIFEROL 1,000 UNITS 25 MCG TAB PO SCH (09:41)
[2022-02-14] MEDS: FOLIC ACID 1 MG TAB PO SCH (09:41)
[2022-02-14] MEDS ORDERED: COUGH DROP (SUGAR FREE) LOZ 24 LOZ/1 BOX BUCCAL PRN (12:22)
--- NOTE | 2022-02-14 12:36 | Hospitalist Progress Note ---
Date of Service February 14, 2022 Assessment & Plan (1) Hypoxia: Plan: -Patient reportedly desaturated to the 80's on RA while being examined by the ED staff -Now his oxygen requirement is at baseline, currently on 4L -Biofire negative, CXR and CT chest esentially wnl -ECHO was of poor quality, however, no structural heart abnormalities noted -Monitor on continuous pulse oximetry (2) Sore throat: Plan: complains of sore throat and mild dysphagia Refused barium swallow test No fever or chills or lymphadenopathy on exam on empiric treatment for thrush continue losenges (3) Urinary tract infection: Plan: -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 Given his history, could be colonization -Has been evaluated by ID who recommend no antibiotics on account of no symptoms -Patient is currently afebrile and hemodynamically stable, and asymptomatic. (4) Dysphagia: Plan: -Patient has been experiencing progressive dysphagia over the past week -Having difficulty swallowing solids but no airway compromise or stridor on exam -Pharynx exam is difficult due to head/neck anatomy -Patient is higher risk for candidiasis infection due to DM, will start Nystatin Swish and swallow Q6H X 7 days and monitor for improvement - soft tissue xray of the neck showed questionable metallic object -patient refused barium swallow -will consult GI (5) Anemia: Plan: -Stable -Continue Vitamin D and ferrous sulfate (6) Chronic kidney disease, stage 4 (severe): Plan: -Stable -Nephrology restarted Lisinopril on follow up visit after last admission -See anemia (7) Hypothyroidism: Plan: -continue levothyroxine (8) Paroxysmal atrial fibrillation: Plan: -Currently rate controlled -Continue metoprolol and Eliquis (9) Hyperlipidemia: Plan: -Continue statin (10) Essential hypertension: Plan: -Continue lisinopril and metoprolol (11) BPH (benign prostatic hyperplasia): Plan: -Starting flomax today as recommended by Urology (12) Heartburn: Plan: -Continue omeprazole (13) Diabetes: Plan: -Will decreased home Lantus dose from 16 units BID to 10 units BID for now as he was hypoglycemic on arrival -SSI with correction factor of 30 -Adjust regimen as needed Plan continue hospitalization Admission and Anticipated Discharge Date Admission Date: February 12, 2022 Subjective patient seen and examined, complains of sore throat and right ear pain, but refused barium swallow Review of Systems Review of Systems: All systems reviewed are negative, apart from the ones contained in the history. Physical Exam Physical Exam: The patient is awake, alert and oriented 3, well developed and well nourished, normocephalic and atraumatic, lying in bed and in no acute distress. HEENT--PERRL, EOMI, mucous membranes and oropharynx mildly dry Neck--supple. No JVD. No bruits. Thyroid normal, trachea midline, no adenopathy. Heart--normal S1 and S2. No murmurs, rubs or gallops. Lungs--clear bilaterally, no respiratory distress, no accessory muscle use. Abdomen--normal bowel sounds and soft. Mild epigastric and left sided abdominal pain Extremities--no cyanosis or clubbing. No edema. Dermatologic--normal skin turgor, normal color, no abnormal lymph nodes, no r noelle. Neurologic--cranial nerves II through XII grossly intact. Rheumatologic--normal range of motion. Psychiatric--normal affect. Results & Data Results & Data ([facility]) Vital Signs (Past 12 Hours) Vital Signs Temp Pulse Resp BP Pulse Ox O2 Del Method O2 Flow Rate 02/14/22 09:00 Nasal Cannula 4 02/14/22 07:31 71 18 97 Nasal Cannula 4 02/14/22 07:12 98.4 F 89 18 110/70 98 Nasal Cannula 4 02/14/22 01:27 104 H 22 98 Nasal Cannula 4 02/14/22 00:40 99.0 F 108 H 16 116/73 96 Nasal Cannula 4 PG Care Time/CCT Total # of Minutes Spent Total Time Spent with Patient: Total time spent is greater than 50% in coordination of care (as documented) at patient's floor/unit and/or counseling patient: Coding Level of Care Code 62050 Subseq Hosp Care Lvl 2 Diagnoses Hypoxia R09.02 Sore throat J02.9 Urinary tract infection N39.0 Hematuria presence: without hematuria Urinary tract infection type: site unspecified Dysphagia R13.10 Anemia D64.9 Chronic kidney disease, stage 4 (severe) N18.4 Hypothyroidism E03.9 Hypothyroidism type: unspecified Paroxysmal atrial fibrillation I48.0 Hyperlipidemia E78.5 Essential hypertension I10 BPH (benign prostatic hyperplasia) N40.0 Heartburn R12 Diabetes E11.9 Time Spent (min) 35 (1) Urinary tract infection Hematuria presence: without hematuria Urinary tract infection type: site unspecified Qualified Code(s): N39.0 - Urinary tract infection, site not speci fied (2) Hypothyroidism Hypothyroidism type: unspecified Qualified Code(s): E03.9 - Hypothyroidism, unspecified
[2022-02-14] MEDS ORDERED: KETOROLAC TROMETHAMINE 15 MG/ML VIAL IV ONE (15:11)
[2022-02-14] MEDS ORDERED: BENZOCAINE/MENTHOL 18 LOZ/1 BOX MT PRN (15:12)
[2022-02-14] MEDS: TAMSULOSIN HCL 0.4 MG CAP PO SCH (21:06)
[2022-02-14] MEDS ORDERED: ALBUTEROL 0.083% NEBU SOLN 3 ML VIAL NEB PRN (21:50)
[2022-02-14] MEDS ORDERED: LIDOCAINE VISCOUS 2% 15 ML UDC MT ONE (22:17)
[2022-02-14] MEDS: FLUTICASONE PROPIONATE NA SPR 16 GM BTL SCH (22:41)
[2022-02-15] MEDS: ACETAMINOPHEN 325 MG TAB PO PRN ×3 (00:59→20:35)
[2022-02-15] MEDS ORDERED: traMADol HCL 50 MG TABLET PO STA (01:32)
[2022-02-15] MEDS: LEVOTHYROXINE SODIUM 88 MCG TABLET PO SCH (05:56)
[2022-02-15 06:17] LABS: Hematocrit (blood only) 34.2 % (40.1-51.0); Hemoglobin 10.6 g/dl (14.0-18.0); Mean Corpuscular Hemoglobin 29.5 pg (25.0-34.0); Mean Corpuscular Volume 95.3 fL (80.0-100.0); Mean Platelet Volume 10.7 fL (9.4-12.4); Platelet Count 270 K/uL (130-400); RDW Coefficient of Variation 15.3 % (11.5-14.5); RDW Standard Deviation 53.3 fL (36.4-46.3); Red Blood Count 3.59 M/uL (4.63-6.08); White Blood Count 15.77 K/ul (4.8-10.8)
[2022-02-15 06:41] LABS: BUN Creatinine Ratio 12.6 (10-20); Calcium 8.6 mg/dl (8.5-10.1); Creatinine Clr Calc Pharmacy 30.7 ml/min; Est GFR (African American) 23.7 ml/min; Est GFR (Non-African American) 20.4 ml/min
[2022-02-15] MEDS: INSULIN ASPART PER UNIT SC SCH ×4 (09:09→20:37)
[2022-02-15] MEDS: CHOLECALCIFEROL 1,000 UNITS 25 MCG TAB PO SCH (09:11)
[2022-02-15] MEDS: BENZONATATE 100 MG CAPSULE PO SCH ×3 (09:11→20:36)
[2022-02-15] MEDS: NYSTATIN 500,000 UNIT TAB PO SCH ×4 (09:11→20:38)
[2022-02-15] MEDS: FOLIC ACID 1 MG TAB PO SCH (09:11)
[2022-02-15] MEDS: FERROUS SULFATE 325 MG TAB PO SCH (09:11)
[2022-02-15] MEDS: PANTOprazole 40 MG TAB PO SCH (09:11)
[2022-02-15] MEDS: FLUTICASONE PROPIONATE NA SPR 16 GM BTL SCH ×2 (09:12→20:40)
[2022-02-15] MEDS: guaiFENesin 600 MG TABCR PO SCH ×2 (09:12→21:03)
[2022-02-15] MEDS: APIXABAN 5 MG TABLET PO SCH ×2 (09:12→20:36)
[2022-02-15] MEDS: AMPICILLIN/SULBACTAM SOD 1,500 MG in 0.9 % SODIUM CHLORIDE 100 ML IV SCH ×2 (09:18→20:35)
[2022-02-15] MEDS: lisinopril 5 MG TAB PO SCH (09:20)
[2022-02-15] MEDS: METOPROLOL SUCC 25MG EXT REL TAB PO SCH ×2 (09:20→21:04)
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
[2022-02-15] MEDS: TAMSULOSIN HCL 0.4 MG CAP PO SCH (20:38)
[2022-02-15] MEDS: traZODone HCL 50 MG TAB PO PRN (23:19)
[2022-02-16] MEDS: LEVOTHYROXINE SODIUM 88 MCG TABLET PO SCH (06:00)
[2022-02-16 07:41] LABS: Hematocrit (blood only) 34.6 % (40.1-51.0); Hemoglobin 10.5 g/dl (14.0-18.0); Mean Corpuscular Hemoglobin 29.2 pg (25.0-34.0); Mean Corpuscular Hgb Conc 30.3 g/dL (32.0-36.0); Mean Corpuscular Volume 96.4 fL (80.0-100.0); Mean Platelet Volume 10.7 fL (9.4-12.4); Platelet Count 267 K/uL (130-400); RDW Coefficient of Variation 15.4 % (11.5-14.5); RDW Standard Deviation 54.8 fL (36.4-46.3); Red Blood Count 3.59 M/uL (4.63-6.08); White Blood Count 9.63 K/ul (4.8-10.8)
[2022-02-16 08:07] LABS: BUN Creatinine Ratio 14.1 (10-20); Calcium 8.9 mg/dl (8.5-10.1); Creatinine Clr Calc Pharmacy 26.3 ml/min; Est GFR (African American) 19.7 ml/min
[2022-02-16] MEDS: NYSTATIN 500,000 UNIT TAB PO SCH ×4 (09:20→21:20)
[2022-02-16] MEDS: FERROUS SULFATE 325 MG TAB PO SCH (09:20)
[2022-02-16] MEDS: FOLIC ACID 1 MG TAB PO SCH (09:20)
[2022-02-16] MEDS: PANTOprazole 40 MG TAB PO SCH (09:20)
[2022-02-16] MEDS: BENZONATATE 100 MG CAPSULE PO SCH ×3 (09:20→21:17)
[2022-02-16] MEDS: lisinopril 5 MG TAB PO SCH (09:20)
[2022-02-16] MEDS: CHOLECALCIFEROL 1,000 UNITS 25 MCG TAB PO SCH (09:20)
[2022-02-16] MEDS: guaiFENesin 600 MG TABCR PO SCH ×2 (09:21→21:19)
[2022-02-16] MEDS: APIXABAN 5 MG TABLET PO SCH ×2 (09:21→21:16)
[2022-02-16] MEDS: METOPROLOL SUCC 25MG EXT REL TAB PO SCH ×2 (09:21→21:34)
[2022-02-16] MEDS: ACETAMINOPHEN 325 MG TAB PO PRN ×3 (09:25→21:22)
[2022-02-16] MEDS: INSULIN ASPART PER UNIT SC SCH ×4 (09:34→21:18)
[2022-02-16] MEDS: FLUTICASONE PROPIONATE NA SPR 16 GM BTL SCH ×2 (09:35→21:21)
[2022-02-16] MEDS: AMPICILLIN/SULBACTAM SOD 1,500 MG in 0.9 % SODIUM CHLORIDE 100 ML IV SCH ×2 (09:38→21:21)
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
[2022-02-16] MEDS: TAMSULOSIN HCL 0.4 MG CAP PO SCH (21:20)
[2022-02-16] MEDS: traZODone HCL 50 MG TAB PO PRN (21:34)
[2022-02-17] MEDS: LEVOTHYROXINE SODIUM 88 MCG TABLET PO SCH (05:54)
[2022-02-17] MEDS: INSULIN ASPART PER UNIT SC SCH ×4 (08:19→21:09)
[2022-02-17] MEDS: FOLIC ACID 1 MG TAB PO SCH (09:00)
[2022-02-17] MEDS: APIXABAN 5 MG TABLET PO SCH ×2 (09:00→19:59)
[2022-02-17] MEDS: NYSTATIN 500,000 UNIT TAB PO SCH ×4 (09:00→20:00)
[2022-02-17] MEDS: CHOLECALCIFEROL 1,000 UNITS 25 MCG TAB PO SCH (09:00)
[2022-02-17] MEDS: BENZONATATE 100 MG CAPSULE PO SCH ×3 (09:01→19:59)
[2022-02-17] MEDS: METOPROLOL SUCC 25MG EXT REL TAB PO SCH ×2 (09:01→19:58)
[2022-02-17] MEDS: PANTOprazole 40 MG TAB PO SCH (09:01)
[2022-02-17] MEDS: guaiFENesin 600 MG TABCR PO SCH ×2 (09:01→20:00)
[2022-02-17] MEDS: FERROUS SULFATE 325 MG TAB PO SCH (09:03)
[2022-02-17] MEDS: FLUTICASONE PROPIONATE NA SPR 16 GM BTL SCH ×2 (09:03→20:01)
[2022-02-17 09:13] LABS: Hematocrit (blood only) 36.7 % (40.1-51.0); Hemoglobin 11.2 g/dl (14.0-18.0); Mean Corpuscular Hemoglobin 29.6 pg (25.0-34.0); Mean Corpuscular Hgb Conc 30.5 g/dL (32.0-36.0); Mean Corpuscular Volume 96.8 fL (80.0-100.0); Mean Platelet Volume 9.9 fL (9.4-12.4); Platelet Count 250 K/uL (130-400); RDW Standard Deviation 53.8 fL (36.4-46.3); Red Blood Count 3.79 M/uL (4.63-6.08); White Blood Count 7.26 K/ul (4.8-10.8)
[2022-02-17 09:45] LABS: Albumin Globulin Ratio 0.8 (0.9-2); Albumin Level 3.3 gm/dl (3.4-5.0); BUN Creatinine Ratio 15.2 (10-20); Bilirubin,Total 0.4 mg/dl (0.2-1.0); C Reactive Protein 6.53 mg/dl (0-0.5); Calcium 9.3 mg/dl (8.5-10.1); Creatinine Clr Calc Pharmacy 31.1 ml/min; Est GFR (African American) 24.1 ml/min; Est GFR (Non-African American) 20.8 ml/min; Total Protein 7.3 gm/dl (6.0-8.3)
[2022-02-17] MEDS: AMPICILLIN/SULBACTAM SOD 1,500 MG in 0.9 % SODIUM CHLORIDE 100 ML IV SCH ×3 (12:16→23:26)
[2022-02-17] MEDS: TAMSULOSIN HCL 0.4 MG CAP PO SCH (20:00)
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
[2022-02-18] MEDS: LEVOTHYROXINE SODIUM 88 MCG TABLET PO SCH (05:11)
[2022-02-18] MEDS: AMPICILLIN/SULBACTAM SOD 1,500 MG in 0.9 % SODIUM CHLORIDE 100 ML IV SCH ×2 (05:11→13:31)
[2022-02-18 07:53] LABS: Creatinine Clr Calc Pharmacy 35.2 ml/min; Est GFR (Non-African American) 24.2 ml/min
[2022-02-18] MEDS: INSULIN ASPART PER UNIT SC SCH ×3 (09:15→17:42)
[2022-02-18] MEDS: APIXABAN 5 MG TABLET PO SCH (09:32)
[2022-02-18] MEDS: CHOLECALCIFEROL 1,000 UNITS 25 MCG TAB PO SCH (09:32)
[2022-02-18] MEDS: FERROUS SULFATE 325 MG TAB PO SCH (09:32)
[2022-02-18] MEDS: BENZONATATE 100 MG CAPSULE PO SCH ×2 (09:32→13:31)
[2022-02-18] MEDS: FLUTICASONE PROPIONATE NA SPR 16 GM BTL SCH (09:32)
[2022-02-18] MEDS: NYSTATIN 500,000 UNIT TAB PO SCH ×3 (09:33→17:48)
[2022-02-18] MEDS: METOPROLOL SUCC 25MG EXT REL TAB PO SCH (09:33)
[2022-02-18] MEDS: PANTOprazole 40 MG TAB PO SCH (09:33)
[2022-02-18] MEDS: FOLIC ACID 1 MG TAB PO SCH (09:33)
[2022-02-18] MEDS: guaiFENesin 600 MG TABCR PO SCH (09:33)
--- NOTE | 2022-02-18 16:39 | Electrocardiogram Report ---
Test Reason : Blood Pressure : / mmHG Vent. Rate : 102 BPM Atrial Rate : 138 BPM P-R Int : 000 ms QRS Dur : 104 ms QT Int : 348 ms P-R-T Axes : 000 -52 089 degrees QTc Int : 453 ms Atrial fibrillation with rapid ventricular response Incomplete right bundle branch block Left anterior fascicular block Abnormal ECG When compared with ECG of 12-FEB-2022 10:28, No significant change Confirmed by Miller Stein ([id number] on 02/18/2022 4:39:20 PM Referred By: REFERRED SELF Confirmed By:Miller Stein
[2022-02-18] MEDS ORDERED: AMOXICILLIN/CLAVULANATE 875 MG TAB PO STA (17:17)
[2022-02-19 11:26] LABS: Epstein Barr Virus Early Ag Ab <9.00 U/mL
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
--- NOTE | 2022-02-26 13:30 | Coding Query ---
CODING QUERY To promote full compliance with coding requirements relating to patient care, provider participation is requested in all cases of iron setter uncertainty. Please assist us with the question(s) below: Coding Question(s): UTI is documented in the record and the Infectious Disease Consult documents Asymptomatic Bacteriuria and, "Given that he does not have any urinary symptoms, I would view the positive urine culture as asymptomatic bacteriuria, rather than a UTI. His bladder is likely colonized with Pseudomonas", and documentation, as on 02/16 Progress Note is, "Urinalysis suggested UTI and urine cultures growing Pseudomonas. 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 Please specify below, in your clinical opinion, regarding UTI. (x ) UTI is ruled out and is likely Asymptomatic Bacteriuria ( ) UTI is ruled out and is likely colonization ( ) UTI is still possible, but treatment was stopped ( ) Other: Please Specify Physician's Response(s): Thank you Elsy Cobb Principal Diagnosis: "that condition established after study, to be chiefly responsible for occasioning the admission of the patient to the hospital for care." Co-Existing Principal Diagnosis: "when two or more diagnoses equally meet the criteria for principal diagnosis as determined by the circumstances of admission, diagnostic work up, and/or therapy provided, and the Alphabetic Index, Tabular List, or another coding guideline does not provide sequencing direction, any one of the diagnoses may be sequenced first." "When the physician has documented what appears to be a current diagnosis in the body of the record, but has not included the diagnosis in the final diagnostic statement, the physician should be asked whether the diagnosis should be added." (Source Coding [facility] 2 QTR90. p3-4) ROCKY
== END 2022-02-18 18:07 | disposition home or self-care (01) | DRG 189 ==
LOC: 3E 09:46 → ED 09:46 → SUATTDRO 15:34 → 3E 16:52 → SUATTDRO 02-14 12:38

== ENCOUNTER 2022-06-12 08:14 | Inpatient (IN) ==
[2022-06-12] MEDS ORDERED: SODIUM CHLORIDE 0.9% 1000ML 1,000 ML IV ONE (08:33)
[2022-06-12] MEDS ORDERED: ONDANSETRON INJ 2 MG/ML 2 ML VIAL IV STA (08:46)
--- NOTE | 2022-06-12 08:46 | Emergency Department Note ---
Impression & Plan Acute UTI, Tachycardia, Vomiting ED Provider Note NAME: DOMITILA BAUM AGE: 76 SEX: M : 1945 ARRIVES VIA: Ambulance INFORMANT: Patient ED PROVIDER(S): Gerald Alcocer DO CHIEF COMPLAINT: abdominal pain HPI: Patient is a 76-year-old male with a past medical history of CKD, BPH, morbid obesity, A-fib who presents to the ER for pain and near syncope this morning. Around 445 he got up and was sick to his stomach. He felt he was going to vomit and had diarrhea. At this time he became diaphoretic and almost passed out. He has had several episodes of vomiting since then. Denies any chest pain or shortness of breath. No cough or congestion. Belly pain is located in the left mid abdomen. No dysuria, urgency, or frequency. No other exacerbating or remitting factors. PAST MEDICAL HISTORY:See Below PAST SURGICAL HISTORY:See Below FAMILY HISTORY:See Below SOCIAL HISTORY:See Below HOME MEDICATIONS:See Below ALLERGIES:See Below VITALS:See Below PHYSICAL EXAMINATION: GENERAL: Sitting up in bed, alert, well appearing, well nourished, no distress, non-toxic EYE EXAM: normal conjunctiva. OROPHARYNX: mucous membranes are dry NECK: supple, no nuchal rigidity, no adenopathy, non-tender LUNGS: Clear to auscultation. Normal chest wall mechanics HEART: no murmurs, S1 normal and S2 normal ABDOMEN: abdomen soft, non-tender, normo-active bowel sounds, no masses, no rebound or guarding. BACK: Back is symmetrical on inspection and there is no deformity, no midline tenderness, no CVA tenderness. SKIN: no rashes and no bruising UPPER EXTREMITIES: upper extremities are grossly normal. LOWER EXTREMITIES: No pitting edema. NEURO EXAM: Normal sensorium, cranial nerves II-XII grossly intact, normal speech, no gross weakness of arms, no gross weakness of legs. MEDICAL DECISION MAKING: Patient is a 76-year-old male who presents ER for nausea vomiting abdominal pain. IV was established blood work was obtained. Labs show leukocytosis of 12,000. No significant anemia. BMP with creatinine 2.3 fairly consistent with previous. LFTs bilirubin was unremarkable. Lipase was normal. Troponin was negative. UA shows nitrates leuks whites and +3 bacteria consistent with UTI. Previous shows Pseudomonas patient was covered with cefepime secondary to previous sensitivities. COVID was negative. He was given IV fluids, cefepime as well as Zofran and Reglan and admitted to Dr. Ackerman for further management and treatment. Triage Nursing notes reviewed. Limited review of prior medical records performed Vital Signs: reviewed and remarkable for tachy and HTN Differential diagnosis: Differential diagnoses includes but is not limited to gastritis, peptic ulcer disease, GERD, gallbladder disease, pancreatitis, small bowel obstruction, appendicitis, diverticulitis, hernia, urinary tract infection, torsion, perforation, trauma, infectious. ER treatment provided: See below Diagnostics interpreted by me include EKG and cardiac monitoring as listed below: -Cardiac Monitoring: An order was placed for continuous cardiac monitoring. The monitor shows a rate of 117 with sinus rhythm. -ECG: Sinus tachycardia rate of 113 Left axis No PVCs QTc 447 -Laboratory studies:Interpreted by me as stated above in MDM and shown below. Imaging studies: Xrays: As interpreted by me:none CTs show: CT abdomen pelvis shows no acute pathology Consultation(s): Discussed with Dr. Fausto clemens for further management treatment Critical Care: [None] Past Med/Surg History Medical History Age-related nuclear cataract, right eye Anemia due to chronic kidney disease Chronic kidney disease, stage 4 (severe) Stage 3b chronic kidney disease Vitamin D deficiency Surgical History No significant past surgical history Family History Other Family history non-contributory Social History Smoking Status: Never smoker Hx Alcohol Use: No Hx Substance Use: No Preferred Language: German Communication Ability: Effective Biology Teacher Required: No Beliefs That Will Affect Care: None marital status: Unknown Current Living Situation: Alone Current Living Situation Comment: lives alone is a studio apartment with 2 JERED Feels Safe at Home: Yes Assistive Devices: Cane, Oxygen - at Night and Walker Allergies Allergies Allergy/AdvReac Type Severity Reaction Status Date / Time ciprofloxacin [From Cipro] AdvReac Intermediate Upset Verified 05/29/22 14:46 Stomach, Nausea, GI Discomfort Home Meds Home Medications Medication Instructions Recorded Confirmed apixaban 5 mg tablet 5 mg PO BID 04/25/21 06/12/22 cholecalciferol (vitamin D3) 25 25 mcg PO QAM 04/25/21 06/12/22 mcg (1,000 unit) capsule folic acid 1 mg tablet 1 mg PO QAM 04/25/21 06/12/22 levothyroxine 88 mcg capsule 88 mcg PO DAILYBB 04/25/21 06/12/22 metoprolol succinate 25 mg 12.5 mg PO BID 05/05/21 06/12/22 tablet,extended release 24 hr ferrous sulfate 325 mg (65 mg 325 mg PO QAM 06/30/21 06/12/22 iron) tablet (FeroSul) gabapentin 100 mg capsule 100 mg PO QID PRN Nerve Pain 06/30/21 06/12/22 trazodone 50 mg tablet 50 mg PO HS PRN Sleep 06/30/21 06/12/22 semaglutide 0.25 mg or 0.5 mg (2 0.25 mg subcut WK 02/12/22 06/12/22 mg/1.5 mL) subcutaneous pen injector (Ozempic) insulin glargine 100 unit/mL (3 18 unit subcut ONCE 05/29/22 06/12/22 mL) subcutaneous pen (Lantus Solostar U-100 Insulin) Previous Rx's Medication Instructions Recorded lisinopril 5 mg tablet 5 mg PO DAILY #90 tabs 01/08/22 pantoprazole 40 mg tablet,delayed 40 mg PO DAILY #30 tabs 01/22/22 release fluticasone propionate 50 1 spray NA BID #16 grams 02/18/22 mcg/actuation nasal spray,suspension tamsulosin 0.4 mg capsule 0.4 mg PO HS #30 caps 02/18/22 phenol 1.4 % mucosal aerosol spray 2 spray mucous membrane Q4H PRN 02/19/22 sore throat #20 mL Results & Data (ED) Vital Signs Vital Signs - 24 hr 06/12/22 08:21 06/12/22 08:29 06/12/22 08:58 Temperature 36.8 C Temperature Source Oral Pulse Rate 119 H 120 H Pulse Rate [Apical] Respiratory Rate 18 Respiratory Depth Normal Blood Pressure 182/97 H Blood Pressure [Left Arm] Blood Pressure Mean 125 Blood Pressure Mean [Left Arm] Blood Pressure Position Lying Blood Pressure Position [Left Arm] Pulse Oximetry 94 93 Oxygen Delivery Method Room Air Sepsis Recent Fever Within 48 Hours No Sepsis New/Unexplained Change in Mental Status No Sepsis Action Taken by Nursing No Action Required 06/12/22 08:58 06/12/22 12:49 Temperature Temperature Source Pulse Rate 112 H Pulse Rate [Apical] 103 H Respiratory Rate 18 Respiratory Depth Normal Blood Pressure Blood Pressure [Left Arm] 177/84 H Blood Pressure Mean Blood Pressure Mean [Left Arm] 115 Blood Pressure Position Blood Pressure Position [Left Arm] Lying Pulse Oximetry 93 Oxygen Delivery Method Room Air Sepsis Recent Fever Within 48 Hours Sepsis New/Unexplained Change in Mental Status Sepsis Action Taken by Nursing Laboratory Data 06/12/22 10:49 06/12/22 10:49 Lab Results 06/12/22 06/12/22 06/12/22 Range/Units 08:40 09:33 09:33 WBC Cancelled RBC Cancelled Hgb Cancelled Hct Cancelled MCV Cancelled MCH Cancelled MCHC Cancelled RDW Std Deviation Cancelled RDW Coeff of Yolanda Cancelled Plt Count Cancelled MPV Cancelled Immature Gran % (Auto) Cancelled Neut % (Auto) Cancelled Lymph % (Auto) Cancelled [place] % (Auto) Cancelled Eos % (Auto) Cancelled Baso % (Auto) Cancelled Neut # (Auto) Cancelled Lymph # (Auto) Cancelled [place] # (Auto) Cancelled Eos # (Auto) Cancelled Baso # (Auto) Cancelled Immature Gran # (Auto) Cancelled Absolute Nucleated RBC Cancelled Nucleated RBC % (auto) Cancelled Neutrophils % (Manual) Cancelled Band Neutrophils % Cancelled Lymphocytes % (Manual) Cancelled Prolymphocyte % Cancelled Reactive Lymphs % (Man) Cancelled Monocytes % (Manual) Cancelled Eosinophils % (Manual) Cancelled Basophils % (Manual) Cancelled Metamyelocytes % (Man) Cancelled Myelocytes % (Man) Cancelled Promyelocytes % (Man) Cancelled Blast Cells % (Manual) Cancelled Plasma Cell % (Manual) Cancelled Other Cells % Cancelled Nucleated RBC % Cancelled Neutrophils # (Manual) Cancelled Band Neutrophils # Cancelled Total Absolute Neuts Cancelled Lymphocytes # (Manual) Cancelled Prolymphocyte # Cancelled Reactive Lymphs # Cancelled Total Abs Lymphocytes Cancelled Monocytes # (Manual) Cancelled Eosinophils # (Manual) Cancelled Basophils # (Manual) Cancelled Metamyelocytes # (Man) Cancelled Myelocytes # (Manual) Cancelled Promyelocytes # (Man) Cancelled Blast Cells # (Man) Cancelled Plasma Cell # (Manual) Cancelled Other Cells # Cancelled Nucleated RBCs # (Man) Cancelled Hypersegmented Neuts Cancelled Hyposegmented Neuts Cancelled Hypogranular Neuts Cancelled Large Granular Lymphs Cancelled # Lrg Granular Lymphs Cancelled Hairy Cells Cancelled Smudge Cells Cancelled Toxic Granulation Cancelled Toxic Vacuolation Cancelled Dohle Bodies Cancelled Nicky Rods Cancelled Platelet Estimate Cancelled Hypogranular Platelets Cancelled Giant Platelets Cancelled Platelet Satelliting Cancelled RBC Morphology Cancelled Polychromasia Cancelled Hypochromasia Cancelled Poikilocytosis Cancelled Basophilic Stippling Cancelled Anisocytosis Cancelled Microcytosis Cancelled Macrocytosis Cancelled Spherocytes Cancelled Pappenheimer Bodies Cancelled Sickle Cells Cancelled Target Cells Cancelled Tear Drop Cells Cancelled Ovalocytes Cancelled Stomatocytes Cancelled Love-Dellroy Bodies Cancelled Echinocytes Cancelled Acanthocytes (Spur) Cancelled Rouleaux Cancelled RBC Agglutinates Cancelled Schistocytes Cancelled Sezary Cell Cancelled Sodium Cancelled Potassium Cancelled Chloride Cancelled Carbon Dioxide Cancelled Anion Gap Cancelled BUN Cancelled Creatinine Cancelled Est Cr Clr Drug Dosing Cancelled Est GFR ( Amer) Cancelled Est GFR (Non-Af Amer) Cancelled BUN/Creatinine Ratio Cancelled Glucose Cancelled POC Glucose (70-99) mg/dl Calcium Cancelled Total Bilirubin Cancelled AST Cancelled ALT Cancelled Alkaline Phosphatase Cancelled Troponin I High Sens Cancelled Total Protein Cancelled Albumin Cancelled Globulin Cancelled Albumin/Globulin Ratio Cancelled Lipase Cancelled Urine Color Urine Appearance (Clear) Urine pH (4.5-7.5) Ur Specific [place] (1.000-1.030) Urine Protein (Negative) Urine Glucose (UA) (Negative) Urine Ketones (Negative) Urine Blood (Negative) Urine Nitrite (Negative) Urine Bilirubin (Negative) Urine Urobilinogen (Negative) Ur Leukocyte Esterase (Negative) Urine WBC (Auto) (0-5) /hpf Urine RBC (Auto) (0-4) /hpf U Hyaline Cast (Auto) (0-5) /lpf U Epithel Cells (Auto) (0-5) /lpf Urine Bacteria (Auto) (Negative) SARS-CoV-2, RNA, NAAT NEGATIVE (NEGATIVE) Blood Parasites ID Cancelled 06/12/22 06/12/22 06/12/22 Range/Units 09:40 10:49 10:49 WBC 12.88 H RBC 4.54 L Hgb 13.3 L Hct 42.6 MCV 93.8 MCH 29.3 MCHC 31.2 L RDW Std Deviation 51.0 H RDW Coeff of Yolanda 14.8 H Plt Count 250 MPV 10.1 Immature Gran % (Auto) 0.5 Neut % (Auto) 95.2 Lymph % (Auto) 1.2 [place] % (Auto) 2.7 Eos % (Auto) 0.2 Baso % (Auto) 0.2 Neut # (Auto) 12.27 H Lymph # (Auto) 0.16 L [place] # (Auto) 0.35 Eos # (Auto) 0.02 Baso # (Auto) 0.02 Immature Gran # (Auto) 0.06 Absolute Nucleated RBC Nucleated RBC % (auto) Neutrophils % (Manual) Band Neutrophils % Lymphocytes % (Manual) Prolymphocyte % Reactive Lymphs % (Man) Monocytes % (Manual) Eosinophils % (Manual) Basophils % (Manual) Metamyelocytes % (Man) Myelocytes % (Man) Promyelocytes % (Man) Blast Cells % (Manual) Plasma Cell % (Manual) Other Cells % Nucleated RBC % Neutrophils # (Manual) Band Neutrophils # Total Absolute Neuts Lymphocytes # (Manual) Prolymphocyte # Reactive Lymphs # Total Abs Lymphocytes Monocytes # (Manual) Eosinophils # (Manual) Basophils # (Manual) Metamyelocytes # (Man) Myelocytes # (Manual) Promyelocytes # (Man) Blast Cells # (Man) Plasma Cell # (Manual) Other Cells # Nucleated RBCs # (Man) Hypersegmented Neuts Hyposegmented Neuts Hypogranular Neuts Large Granular Lymphs # Lrg Granular Lymphs Hairy Cells Smudge Cells Toxic Granulation Toxic Vacuolation Dohle Bodies Nicky Rods Platelet Estimate Hypogranular Platelets Giant Platelets Platelet Satelliting RBC Morphology Polychromasia Hypochromasia Poikilocytosis Basophilic Stippling Anisocytosis Microcytosis Macrocytosis Spherocytes Pappenheimer Bodies Sickle Cells Target Cells Tear Drop Cells Ovalocytes Stomatocytes Lalolly Bodies Echinocytes Acanthocytes (Spur) Rouleaux RBC Agglutinates Schistocytes Sezary Cell Sodium 140 Potassium 4.8 Chloride 108 H Carbon Dioxide 27 Anion Gap 5 BUN 34 H Creatinine 2.31 H Est Cr Clr Drug Dosing 33.5 Est GFR ( Amer) 30.7 Est GFR (Non-Af Amer) 26.5 BUN/Creatinine Ratio 14.7 Glucose 135 H POC Glucose 138 H (70-99) mg/dl Calcium 9.4 Total Bilirubin 0.5 AST 11 L ALT 8 Alkaline Phosphatase 50 Troponin I High Sens 8.4 Total Protein 8.1 Albumin 3.7 Globulin 4.4 H Albumin/Globulin Ratio 0.8 L Lipase 11 Urine Color Urine Appearance (Clear) Urine pH (4.5-7.5) Ur Specific [place] (1.000-1.030) Urine Protein (Negative) Urine Glucose (UA) (Negative) Urine Ketones (Negative) Urine Blood (Negative) Urine Nitrite (Negative) Urine Bilirubin (Negative) Urine Urobilinogen (Negative) Ur Leukocyte Esterase (Negative) Urine WBC (Auto) (0-5) /hpf Urine RBC (Auto) (0-4) /hpf U Hyaline Cast (Auto) (0-5) /lpf U Epithel Cells (Auto) (0-5) /lpf Urine Bacteria (Auto) (Negative) SARS-CoV-2, RNA, NAAT (NEGATIVE) Blood Parasites ID 06/12/22 Range/Units 11:02 WBC RBC Hgb Hct MCV MCH MCHC RDW Std Deviation RDW Coeff of Yolanda Plt Count MPV Immature Gran % (Auto) Neut % (Auto) Lymph % (Auto) Valencia % (Auto) Eos % (Auto) Baso % (Auto) Neut # (Auto) Lymph # (Auto) [place] # (Auto) Eos # (Auto) Baso # (Auto) Immature Gran # (Auto) Absolute Nucleated RBC Nucleated RBC % (auto) Neutrophils % (Manual) Band Neutrophils % Lymphocytes % (Manual) Prolymphocyte % Reactive Lymphs % (Man) Monocytes % (Manual) Eosinophils % (Manual) Basophils % (Manual) Metamyelocytes % (Man) Myelocytes % (Man) Promyelocytes % (Man) Blast Cells % (Manual) Plasma Cell % (Manual) Other Cells % Nucleated RBC % Neutrophils # (Manual) Band Neutrophils # Total Absolute Neuts Lymphocytes # (Manual) Prolymphocyte # Reactive Lymphs # Total Abs Lymphocytes Monocytes # (Manual) Eosinophils # (Manual) Basophils # (Manual) Metamyelocytes # (Man) Myelocytes # (Manual) Promyelocytes # (Man) Blast Cells # (Man) Plasma Cell # (Manual) Other Cells # Nucleated RBCs # (Man) Hypersegmented Neuts Hyposegmented Neuts Hypogranular Neuts Large Granular Lymphs # Lrg Granular Lymphs Hairy Cells Smudge Cells Toxic Granulation Toxic Vacuolation Dohle Bodies Nicky Rods Platelet Estimate Hypogranular Platelets Giant Platelets Platelet Satelliting RBC Morphology Polychromasia Hypochromasia Poikilocytosis Basophilic Stippling Anisocytosis Microcytosis Macrocytosis Spherocytes Pappenheimer Bodies Sickle Cells Target Cells Tear Drop Cells Ovalocytes Stomatocytes Love-Dellroy Bodies Echinocytes Acanthocytes (Spur) Rouleaux RBC Agglutinates Schistocytes Sezary Cell Sodium Potassium Chloride Carbon Dioxide Anion Gap BUN Creatinine Est Cr Clr Drug Dosing Est GFR ( Amer) Est GFR (Non-Af Amer) BUN/Creatinine Ratio Glucose POC Glucose (70-99) mg/dl Calcium Total Bilirubin AST ALT Alkaline Phosphatase Troponin I High Sens Total Protein Albumin Globulin Albumin/Globulin Ratio Lipase Urine Color Yellow Urine Appearance Clear (Clear) Urine pH 6.0 (4.5-7.5) Ur Specific [place] 1.014 (1.000-1.030) Urine Protein Trace H (Negative) Urine Glucose (UA) Negative (Negative) Urine Ketones Negative (Negative) Urine Blood Trace H (Negative) Urine Nitrite Positive A (Negative) Urine Bilirubin Negative (Negative) Urine Urobilinogen Negative (Negative) Ur Leukocyte Esterase 2+ H (Negative) Urine WBC (Auto) >30 H (0-5) /hpf Urine RBC (Auto) 0-4 (0-4) /hpf U Hyaline Cast (Auto) 1-5 (0-5) /lpf U Epithel Cells (Auto) 0-5 (0-5) /lpf Urine Bacteria (Auto) 2+ H (Negative) SARS-CoV-2, RNA, NAAT (NEGATIVE) Blood Parasites ID Administered Medications Discontinued Medications Sodium Chloride (Nss 1000ml) 1,000 mls @ 999 mls/hr IV .Q1H1M ONE Stop: 06/12/22 09:33 Last Infusion: 06/12/22 13:10 Dose: 0 mls/hr Documented By: Admin: 06/12/22 08:42 Dose: 999 mls/hr Documented By: CR Cefepime HCl (Maxipime) 2,000 mg in 20 mls @ 5 mls/min IV NOW STA; Protocol Stop: 06/12/22 12:04 Last Admin: 06/12/22 12:36 Dose: 5 mls/min Documented By: HIRA Metoclopramide HCl (Metoclopramide Hcl Inj 5 Mg/Ml 2 Ml Vial) 10 mg IV NOW STA Stop: 06/12/22 11:32 Last Admin: 06/12/22 11:36 Dose: 10 mg Documented By: HIRA Ondansetron HCl (Ondansetron Inj 2 Mg/Ml 2 Ml Vial) 4 mg IV NOW STA Stop: 06/12/22 08:47 Last Admin: 06/12/22 08:54 Dose: 4 mg Documented By: CR Imaging Data Radiologist's Impression: Abdomen/Pelvis CT 06/12/22 10:07 CT abd pelvis wo con CLINICAL HISTORY: abd pain vomiting TECHNIQUE: Helical axial images of the abdomen and pelvis were obtained. Automated dose lowering techniques and/or adjustment according to patient size were utilized for this exam. This exam was performed without intravenous contrast. CT DOSE: 1098.14 mGycm COMPARISON: Comparison is made to CT abdomen pelvis 11/27/2021 FINDINGS: Lower chest: Bibasilar atelectasis is seen with rounded atelectasis in the left lung base. Cardiomegaly is noted. Liver: Unremarkable. No focal lesions are seen. Gallbladder and biliary tree: Redemonstration of hyperdense contents of the gallbladder with stones noted, findings likely represent sludge. No intra- or extrahepatic biliary ductal dilation. Pancreas: Unremarkable, no focal lesions. Spleen: Unremarkable. Adrenals: Unremarkable. Kidneys and ureters: Atrophic appearance of the bilateral kidneys. Bladder: Mild thickening of the bladder wall is noted. Reproductive organs: Unremarkable. Bowel: Diverticulosis is seen without evidence of diverticulitis. Lymph nodes Retroperitoneal: Unremarkable. Pelvic: Unremarkable. Mesenteric: Unremarkable. Peritoneum: Normal. Vessels: Atherosclerotic calcifications are seen. Abdominal wall: Left fat containing inguinal hernia. Bones: Degenerative changes in the visualized spine. IMPRESSION: 1. No acute abnormalities and in particular no evidence of bowel obstruction. 2. Thickening of the bladder wall is nonspecific, correlation with urinalysis is recommended to exclude UTI. 3. Gallbladder sludge and gallstones without evidence of cholecystitis. ACT 112: Negative or not required by law. Electronically signed by: Moshe Rodrigez M.D. 06/12/2022 10:57 AM Discharge Plan Visit Data Chief Complaint: Illness ED Provider: Gerald Alcocer Discharge Problem: Acute UTI, Tachycardia, Vomiting Forms Stand Alone Forms: [facility] [employer] Prescriptions Prescriptions: No Action lisinopril 5 mg tablet 5 mg PO DAILY Qty: 90 3RF pantoprazole 40 mg tablet,delayed release (DR/EC) 40 mg PO DAILY Qty: 30 2RF apixaban 5 mg tablet 5 mg PO BID cholecalciferol (vitamin D3) 25 mcg (1,000 unit) capsule 25 mcg PO QAM folic acid 1 mg tablet 1 mg PO QAM levothyroxine 88 mcg capsule 88 mcg PO DAILYBB metoprolol succinate 25 mg tablet extended release 24 hr 12.5 mg PO BID Ozempic 0.25 mg or 0.5 mg(2 mg/1.5 mL) Pen Injector 0.25 mg SUBCUT WK Rx Instructions: TAKES ON THURSDAYS. 02/12/22 IS LAST DOSE OF 0.25MG, THEN INCREASE NEXT WEEK TO 0.5 MG. tamsulosin 0.4 mg Capsule 0.4 mg PO HS Qty: 30 0RF fluticasone propionate 50 mcg/actuation [place],Suspension 1 spray NA BID Qty: 16 0RF phenol 1.4 % aerosol,spray 2 spray mucous membrane Q4H PRN (Reason: sore throat) Qty: 20 0RF insulin glargine [Lantus Solostar U-100 Insulin] 100 unit/mL (3 mL) insulin pen 18 unit subcut ONCE trazodone 50 mg tablet 50 mg PO HS PRN (Reason: Sleep) ferrous sulfate [FeroSul] 325 mg (65 mg iron) tablet 325 mg PO QAM gabapentin 100 mg capsule 100 mg PO QID PRN (Reason: Nerve Pain) Referrals Referrals: Mann Bright, [employer] [Primary Care Provider] -
--- NOTE | 2022-06-12 10:58 | CT Scan Report ---
CT abd pelvis wo con CLINICAL HISTORY: abd pain vomiting TECHNIQUE: Helical axial images of the abdomen and pelvis were obtained. Automated dose lowering tech niques and/or adjustment according to patient size were utilized for this exam. This exam was perfor med without intravenous contrast. CT DOSE: 1098.14 mGycm COMPARISON: Comparison is made to CT abdomen pelvis 11/27/2021 FINDINGS: Lower chest: Bibasilar atelectasis is seen with rounded atelectasis in the left lung base. Cardiomeg shonna is noted. Liver: Unremarkable. No focal lesions are seen. Gallbladder and biliary tree: Redemonstration of hyperdense contents of the gallbladder with stones n oted, findings likely represent sludge. No intra- or extrahepatic biliary ductal dilation. Pancreas: Unremarkable, no focal lesions. Spleen: Unremarkable. Adrenals: Unremarkable. Kidneys and ureters: Atrophic appearance of the bilateral kidneys. Bladder: Mild thickening of the bladder wall is noted. Reproductive organs: Unremarkable. Bowel: Diverticulosis is seen without evidence of diverticulitis. Lymph nodes Retroperitoneal: Unremarkable. Pelvic: Unremarkable. Mesenteric: Unremarkable. Peritoneum: Normal. Vessels: Atherosclerotic calcifications are seen. Abdominal wall: Left fat containing inguinal hernia. Bones: Degenerative changes in the visualized spine. IMPRESSION: 1. No acute abnormalities and in particular no evidence of bowel obstruction. 2. Thickening of the bladder wall is nonspecific, correlation with urinalysis is recommended to excl ude UTI. 3. Gallbladder sludge and gallstones without evidence of cholecystitis. ACT 112: Negative or not required by law. Electronically signed by: Moshe Rodrigez M.D. 06/12/2022 10:57 AM
[2022-06-12 11:18] LABS: Hematocrit (blood only) 42.6 % (42.0-52.0); Hemoglobin 13.3 g/dl (14.0-18.0); Mean Corpuscular Hemoglobin 29.3 pg (25.0-34.0); Mean Corpuscular Hgb Conc 31.2 g/dL (32.0-36.0); Mean Corpuscular Volume 93.8 fL (80.0-100.0); Mean Platelet Volume 10.1 fL (9.4-12.4); Platelet Count 250 K/uL (130-400); RDW Coefficient of Variation 14.8 % (11.5-14.5); Red Blood Count 4.54 M/uL (4.70-6.10); White Blood Count 12.88 K/ul (4.8-10.8)
[2022-06-12 11:24] LABS: Appearance Urine Clear (Clear); Bacteria Urine Automated 2+ (Negative); Bilirubin Urine Negative (Negative); Blood Urine Trace (Negative); Color Urine Yellow; Epithelial Cell Urine Auto 0-5 /lpf (0-5); Glucose Urine UA Negative (Negative); Ketones Urine Negative (Negative); Leukocyte Esterase Urine 2+ (Negative); Nitrite Urine Positive (Negative); Protein Urine Trace (Negative); RBC Urine Automated 0-4 /hpf (0-4); Specific Gravity Urine 1.014 (1.000-1.030); Urobilinogen Urine Negative (Negative); WBC Urine Automated >30 /hpf (0-5)
[2022-06-12] MEDS ORDERED: METOCLOPRAMIDE HCL INJ 5 MG/ML 2 ML VIAL IV STA (11:31)
[2022-06-12 11:34] LABS: Basophils # (auto) 0.02 K/uL (0-0.2); Basophils % (auto) 0.2 %; Eosinophils # (auto) 0.02 K/uL (0-0.50); Eosinophils % (auto) 0.2 %; Immature Granulocytes # (auto) 0.06 K/uL (0.01-0.20); Immature Granulocytes % (auto) 0.5 %; Lymphocytes # (auto) 0.16 K/uL (1.2-3.4); Lymphocytes % (auto) 1.2 %; Monocytes # (auto) 0.35 K/uL (0.11-0.59); Monocytes % (auto) 2.7 %; Neutrophils # (auto) 12.27 K/uL (1.40-6.50); Neutrophils % (auto) 95.2 %
[2022-06-12 11:37] LABS: Albumin Globulin Ratio 0.8 (0.9-2); Albumin Level 3.7 gm/dl (3.4-5.0); BUN Creatinine Ratio 14.7 (10-20); Bilirubin,Total 0.5 mg/dl (0.2-1.0); Calcium 9.4 mg/dl (8.5-10.1); Creatinine Clr Calc Pharmacy 33.5 ml/min; Est GFR (African American) 30.7 ml/min; Est GFR (Non-African American) 26.5 ml/min; Globulin 4.4 gm/dl (2.5-4.0); Potassium 4.8 mmol/L (3.5-5.1); Total Protein 8.1 gm/dl (6.0-8.3)
[2022-06-12 11:50] LABS: Troponin I High Sensitivity 8.4 pg/ml (0-20)
--- NOTE | 2022-06-12 11:51 | Electrocardiogram Report ---
Test Reason : Blood Pressure : / mmHG Vent. Rate : 113 BPM Atrial Rate : 113 BPM P-R Int : 120 ms QRS Dur : 098 ms QT Int : 326 ms P-R-T Axes : 012 -48 044 degrees QTc Int : 447 ms Probable Sinus tachycardia Left anterior fascicular block Abnormal ECG When compared with ECG of 17-FEB-2022 17:09, Sinus rhythm has replaced Atrial fibrillation ST no longer depressed in Lateral leads Confirmed by Miller Stein ([id number]) on 06/12/2022 11:51:03 AM Referred By: REFERRED SELF Confirmed By:Miller Stein
[2022-06-12] MEDS ORDERED: CEFEPIME 2,000 MG/20 ML VIAL IV STA (12:01)
--- NOTE | 2022-06-12 13:20 | History & Physical Report ---
Date of Service June 12, 2022 Assessment & Plan (1) Nausea vomiting and diarrhea: Plan: - Admit to med tele - Suspect could be related to viral GI illness - Keep NPO for now until symptoms improved - Obtain stool biofire - Supportive care, will continue Reglan 10mg IV q6h prn n/v - LR at 100 ml/hr - Avoid antidiarrheals until stool biofire completed - IV Protonix 40mg daily (2) Abnormal urinalysis: Plan: - Appears essentially the same as his UA in Feb 2022 - Seen by ID at that time, felt that growth of PsA represented colonization in absence of urinary symptoms - Pt denies urinary symptoms BUT does have bladder wall thickening on his CT which he did not have previously - Based on his UA, with tachycardia + leukocytosis (which could be d/t dehydration in the setting of viral GI illness) could also represent sepsis * Because of this, will continue empiric Cefepime 2g IV daily (renally dosed) * Blood cultures were not ordered prior to ordering the IV abx, but I did add this to the orders * Urine culture was ordered and is pending (3) Leukocytosis: Plan: - As above - Empiric Cefepime, fluids, cultures, repeat labs in AM (4) Hypoxia: Plan: - This was felt to be d/t OHS during his last admission - Currently 93% on room air (5) BPH (benign prostatic hyperplasia): Plan: - Continue Flomax 0.4mg HS (6) Chronic kidney disease, stage 4 (severe): Plan: - Baseline creatinine 2.2 to 2.4 - Stable, follows with Dr. Fleming as outpatient (7) Hypothyroidism: Plan: - Continue Levothyroxine 88 mcg daily (8) Paroxysmal atrial fibrillation: Plan: - Currently slightly tachycardic, didn't take his AM Metoprolol due to n/v - Resume Metoprolol Succinate 12.5mg BID starting this evening - Can utilize PRN Lopressor if needed - Resume Apixaban 5mg BID, starting this evening (9) Essential hypertension: Plan: - Currently slightly hypertensive, but again, didn't get his home meds this AM - Resume Lisinopril and Metoprolol (10) Type 2 diabetes mellitus: Plan: - Takes Lantus 18u and Ozempic - Reduce Lantus to 5u BID (d/t NPO status) - Hold Ozempic - Transition back to HS dosing once diet advanced and tolerating for ease of transition back home - Accuchecks q6h d/t NPO status - Glycemic consult placed to pharmacy for ongoing management, hold off on ACHS coverage for now Plan DVT ppx is covered by resumption of Apixaban. AM labs ordered. Remaining plan as outlined above. Plan has been d/w Dr. Hebert who will also see and evaluate this patient. Further orders will be implemented as warranted. History of Present Illness Chief Complaint: n/v/d Primary Care Provider: Mann Bright, SHANE-C Mr. 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 He denies any ill contacts or going out to eat. He lives alone and has no one coming into the home to help him. He reports he vomited 4x since symptoms started with several episodes of loose stools also. He c/o epigastric abdominal discomfort. He denies fever, chills. Denies suprapubic pain, urinary frequency, urgency, dysuria, or h ematuria. His work up in the ER revealed a mildly elevated wbc count of 12.8 with left shift, baseline creatinine at 2.31 (baseline is 2.2-2.4), and a UA that appears grossly infected, however, appears the same as it did from his Feb 2022 admission. Patient was medicated with a dose of Zofran, however, did not relieve his vomiting and was subsequently given Reglan which provided some improvement. He was given a dose of IV Cefepime d/t his history of pseudomonal UTIs based on the appearance of his UA in the ER today. Hospitalists have been contacted for admission for further evaluation. Allergies Allergy/AdvReac Type Severity Reaction Status Date / Time ciprofloxacin [From Cipro] AdvReac Intermediate Upset Verified 05/29/22 14:46 Stomach, Nausea, GI Discomfort Home Medications Medication Instructions Recorded Confirmed Type apixaban 5 mg tablet 5 mg PO BID 04/25/21 06/12/22 History cholecalciferol (vitamin D3) 25 25 mcg PO QAM 04/25/21 06/12/22 History mcg (1,000 unit) capsule folic acid 1 mg tablet 1 mg PO QAM 04/25/21 06/12/22 History levothyroxine 88 mcg capsule 88 mcg PO DAILYBB 04/25/21 06/12/22 History metoprolol succinate 25 mg 12.5 mg PO BID 05/05/21 06/12/22 History tablet,extended release 24 hr ferrous sulfate 325 mg (65 mg 325 mg PO QAM 06/30/21 06/12/22 History iron) tablet (FeroSul) gabapentin 100 mg capsule 100 mg PO QID PRN Nerve Pain 06/30/21 06/12/22 History trazodone 50 mg tablet 50 mg PO HS PRN Sleep 06/30/21 06/12/22 History lisinopril 5 mg tablet 5 mg PO DAILY #90 tabs 01/08/22 06/12/22 Rx pantoprazole 40 mg tablet,delayed 40 mg PO DAILY #30 tabs 01/22/22 06/12/22 Rx release semaglutide 0.25 mg or 0.5 mg (2 0.25 mg subcut WK 02/12/22 06/12/22 History mg/1.5 mL) subcutaneous pen injector (Ozempic) fluticasone propionate 50 1 spray NA BID #16 grams 02/18/22 06/12/22 Rx mcg/actuation nasal spray,suspension tamsulosin 0.4 mg capsule 0.4 mg PO HS #30 caps 02/18/22 06/12/22 Rx phenol 1.4 % mucosal aerosol spray 2 spray mucous membrane Q4H PRN 02/19/22 06/12/22 Rx sore throat #20 mL insulin glargine 100 unit/mL (3 18 unit subcut ONCE 05/29/22 06/12/22 History mL) subcutaneous pen (Lantus Solostar U-100 Insulin) Past Med/Surg History Medical History Age-related nuclear cataract, right eye Anemia due to chronic kidney disease Chronic kidney disease, stage 4 (severe) Stage 3b chronic kidney disease Vitamin D deficiency Surgical History No significant past surgical history Family History Other Family history non-contributory Social History Smoking Status: Never smoker Hx Alcohol Use: No Hx Substance Use: No Preferred Language: Emirati Communication Ability: Effective Mushroom Picker Required: No Beliefs That Will Affect Care: None marital status: Unknown Current Living Situation: Alone Current Living Situation Comment: lives alone is a studio apartment with 2 JERED Feels Safe at Home: Yes Safety Concerns: Feels Safe At This Time Assistive Devices: Cane and Oxygen - at Night Physical Exam Physical Exam: GENERAL: 76 yo obese WM who appears ill but nontoxic. NAD. LUNGS: Clear to auscultation bilaterally. CARDIOVASCULAR: Mildly tachycardic ABDOMEN: Soft, obese, mildly epigastric tenderness. +BS x 4 quad. Results & Data Results & Data ([facility]) Vital Signs (Past 12 Hours) Vital Signs Temp Pulse Pulse Resp BP BP Pulse Ox 06/12/22 08:58 103 H 18 177/84 H 93 06/12/22 08:58 93 06/12/22 08:29 120 H 06/12/22 08:21 36.8 C 119 H 18 182/97 H 94 O2 Del Method 06/12/22 08:58 Room Air 06/12/22 08:58 06/12/22 08:29 06/12/22 08:21 Room Air Laboratory Results 06/12/22 10:49 06/12/22 10:49 Diagnostic Findings Abdomen/Pelvis CT 06/12/22 10:07 CT abd pelvis wo con CLINICAL HISTORY: abd pain vomiting TECHNIQUE: Helical axial images of the abdomen and pelvis were obtained. Automated dose lowering techniques and/or adjustment according to patient size were utilized for this exam. This exam was performed without intravenous contrast. CT DOSE: 1098.14 mGycm COMPARISON: Comparison is made to CT abdomen pelvis 11/27/2021 FINDINGS: Lower chest: Bibasilar atelectasis is seen with rounded atelectasis in the left lung base. Cardiomegaly is noted. Liver: Unremarkable. No focal lesions are seen. Gallbladder and biliary tree: Redemonstration of hyperdense contents of the gallbladder with stones noted, findings likely represent sludge. No intra- or extrahepatic biliary ductal dilation. Pancreas: Unremarkable, no focal lesions. Spleen: Unremarkable. Adrenals: Unremarkable. Kidneys and ureters: Atrophic appearance of the bilateral kidneys. Bladder: Mild thickening of the bladder wall is noted. Reproductive organs: Unremarkable. Bowel: Diverticulosis is seen without evidence of diverticulitis. Lymph nodes Retroperitoneal: Unremarkable. Pelvic: Unremarkable. Mesenteric: Unremarkable. Peritoneum: Normal. Vessels: Atherosclerotic calcifications are seen. Abdominal wall: Left fat containing inguinal hernia. Bones: Degenerative changes in the visualized spine. IMPRESSION: 1. No acute abnormalities and in particular no evidence of bowel obstruction. 2. Thickening of the bladder wall is nonspecific, correlation with urinalysis is recommended to exclude UTI. 3. Gallbladder sludge and gallstones without evidence of cholecystitis. ACT 112: Negative or not required by law. Electronically signed by: Moshe Rodrigez M.D. 06/12/2022 10:57 AM Supervising Physician Co-Signing Physician Notes Patient seen and examined, chart reviewed, case discussed with Makayla Ariza PA-C, and I agree with the assessment and plan as above except as otherwise noted Labs and images reviewed Patient seen at bedside. Has had recent nausea, vomiting, diarrhea since this morning. Recommended for admission based on urinary symptoms, concern for sepsis, and past history of Pseudomonas. Symptoms are more consistent with gastritis, but given a full illness has been recommended for admission with broad IV coverage pending UA/UC further infectious results. Nondistressed at time of bedside assessment, is mildly tachycardic and on nasal cannula oxygen. Denies pain in assessment. Arms and legs are warm and well-perfused. Agree with management above. PG Care Time/CCT Total # of Minutes Spent Total Time Spent with Patient: Total time spent is greater than 50% in coordination of care (as documented) at patient's floor/unit and/or counseling patient: Coding Level of Care Code 61019 INT INP/OBS CARE 3/75MIN Diagnoses Nausea vomiting and diarrhea R11.2; R19.7 Abnormal urinalysis R82.90 Leukocytosis D72.829 Hypoxia R09.02 BPH (benign prostatic hyperplasia) N40.0 Chronic kidney disease, stage 4 (severe) N18.4 Hypothyroidism E03.9 Hypothyroidism type: unspecified Paroxysmal atrial fibrillation I48.0 Essential hypertension I10 Type 2 diabetes mellitus E11.9 (7) Hypothyroidism Hypothyroidism type: unspecified Qualified Code(s): E03.9 - Hypothyroidism, unspecified
[2022-06-12] MEDS ORDERED: ALUMINUM/MAGNESIUM SUSP 30 ML UDC PO PRN (15:05)
[2022-06-12] MEDS ORDERED: DEXTROSE 50% 50 ML SYRINGE IV PRN (15:05)
[2022-06-12] MEDS ORDERED: GLUCAGON FOR INJ 1 MG VIAL SQ PRN (15:05)
[2022-06-12] MEDS ORDERED: PHARMACY GLYCEMIC MGMT CONSULT PRN (15:05)
[2022-06-12] MEDS ORDERED: GLUCOSE 10 TAB/TUBE PO PRN (15:05)
[2022-06-12] MEDS ORDERED: METOCLOPRAMIDE HCL INJ 5 MG/ML 2 ML VIAL IV PRN (15:05)
[2022-06-12] MEDS ORDERED: GABAPENTIN 100 MG CAP PO PRN (15:05)
[2022-06-12] MEDS ORDERED: MAGNESIUM HYDROXIDE SUSP 30 ML UDC PO PRN (15:05)
[2022-06-12] MEDS ORDERED: traZODone HCL 50 MG TAB PO PRN (15:05)
[2022-06-12] MEDS ORDERED: CARBOHYDRATES FOR HYPOGLYCEMIA PO PRN (15:05)
[2022-06-12] MEDS ORDERED: GLUCOSE 40% GEL 15 GM TUBE PO PRN (15:05)
[2022-06-12] MEDS ORDERED: ACETAMINOPHEN 325 MG TAB PO PRN (15:05)
[2022-06-12] MEDS ORDERED: POLYETHYLENE (MIRALAX) 17 GM PACK PO PRN (15:05)
[2022-06-12] MEDS: LACTATED RINGER'S 1,000 ML IV SCH (16:18)
[2022-06-12] MEDS: INSULIN ASPART PER UNIT SC SCH ×2 (16:18→22:03)
[2022-06-12 17:42] LABS: Adenovirus F 40/41 PCR Not Detected (NotDetected); Astrovirus PCR Not Detected (NotDetected); Campylobacter PCR Not Detected (NotDetected); Cryptosporidium PCR Not Detected (NotDetected); Cyclospora cayetanensis PCR Not Detected (NotDetected); Entamoeba histolytica PCR Not Detected (NotDetected); Enteroaggregative E.coli(EAEC) Not Detected (NotDetected); Enteropathogenic E.coli (EPEC) Not Detected (NotDetected); Enterotoxigenic E.coli (ETEC) Not Detected (NotDetected); Giardia lamblia PCR Not Detected (NotDetected); Plesiomonas shigelloides PCR Not Detected (NotDetected); Rotavirus A PCR Not Detected (NotDetected); Salmonella PCR Not Detected (NotDetected); Sapovirus PCR Not Detected (NotDetected); Shiga-like Toxin E.coli (STEC) Not Detected (NotDetected); Shigella/Enteroinvasive E.coli Not Detected (NotDetected); Vibrio cholerae PCR Not Detected (NotDetected); Vibrio species PCR Not Detected (NotDetected); Yersinia enterocolitica PCR Not Detected (NotDetected)
[2022-06-12 17:55] LABS: Norovirus GI/GII PCR DETECTED (NotDetected)
[2022-06-12] MEDS: METOPROLOL SUCC 25MG EXT REL TAB PO SCH (21:09)
[2022-06-12] MEDS: APIXABAN 5 MG TABLET PO SCH (21:09)
[2022-06-12] MEDS: TAMSULOSIN HCL 0.4 MG CAP PO SCH (21:09)
[2022-06-12] MEDS: LANTUS PER UNIT CHARGE SQ SCH (22:03)
[2022-06-13] MEDS: CEFEPIME 2,000 MG in SYRINGE 0 ML IV SCH ×3 (01:22→23:44)
[2022-06-13] MEDS: LACTATED RINGER'S 1,000 ML IV SCH ×3 (02:18→23:39)
[2022-06-13] MEDS: INSULIN ASPART PER UNIT SC SCH ×4 (05:55→20:41)
[2022-06-13] MEDS: LEVOTHYROXINE SODIUM 88 MCG TABLET PO SCH (05:56)
[2022-06-13 06:30] LABS: Basophils # (auto) 0.02 K/uL (0-0.2); Basophils % (auto) 0.2 %; Eosinophils # (auto) 0.01 K/uL (0-0.50); Eosinophils % (auto) 0.1 %; Hematocrit (blood only) 38.5 % (42.0-52.0); Hemoglobin 11.9 g/dl (14.0-18.0); Immature Granulocytes # (auto) 0.04 K/uL (0.01-0.20); Immature Granulocytes % (auto) 0.4 %; Lymphocytes # (auto) 0.34 K/uL (1.2-3.4); Lymphocytes % (auto) 3.6 %; Mean Corpuscular Hemoglobin 29.2 pg (25.0-34.0); Mean Corpuscular Hgb Conc 30.9 g/dL (32.0-36.0); Mean Corpuscular Volume 94.4 fL (80.0-100.0); Mean Platelet Volume 10.3 fL (9.4-12.4); Monocytes # (auto) 0.62 K/uL (0.11-0.59); Monocytes % (auto) 6.6 %; Neutrophils # (auto) 8.37 K/uL (1.40-6.50); Neutrophils % (auto) 89.1 %; Platelet Count 269 K/uL (130-400); RDW Coefficient of Variation 15.1 % (11.5-14.5); RDW Standard Deviation 52.4 fL (36.4-46.3); Red Blood Count 4.08 M/uL (4.70-6.10)
[2022-06-13] MEDS: LANTUS PER UNIT CHARGE SQ SCH ×2 (07:44→20:41)
[2022-06-13] MEDS: METOPROLOL SUCC 25MG EXT REL TAB PO SCH ×2 (07:47→20:38)
[2022-06-13] MEDS: lisinopril 5 MG TAB PO SCH (07:48)
[2022-06-13] MEDS: APIXABAN 5 MG TABLET PO SCH ×2 (07:48→20:38)
[2022-06-13] MEDS: FOLIC ACID 1 MG TAB PO SCH (07:49)
[2022-06-13 10:02] LABS: Albumin Globulin Ratio 0.9 (0.9-2); Albumin Level 3.2 gm/dl (3.4-5.0); BUN Creatinine Ratio 14.2 (10-20); Bilirubin,Total 0.6 mg/dl (0.2-1.0); Calcium 8.9 mg/dl (8.5-10.1); Creatinine Clr Calc Pharmacy 33.3 ml/min; Est GFR (African American) 30.3 ml/min; Est GFR (Non-African American) 26.2 ml/min; Globulin 3.7 gm/dl (2.5-4.0); Potassium 4.2 mmol/L (3.5-5.1); Total Protein 6.9 gm/dl (6.0-8.3)
[2022-06-13] MEDS ORDERED: PANTOprazole 40 MG in SYRINGE 0 ML IV SCH (11:00)
--- NOTE | 2022-06-13 13:39 | Pharmacy Report ---
Pharmacy Glycemic Short Note 2 - Date of Service June 13, 2022 - Glycemic Short BSG Results (Last 24 hours): 06/12/22 06/12/22 06/13/22 16:08 20:44 05:38 Glucose 129 H POC Glucose 114 H 121 H 06/13/22 06/13/22 06/13/22 05:40 07:40 11:55 Glucose POC Glucose 124 H 120 H 121 H OUTPATIENT ANTIDIABETIC REGIMEN: * Lantus 18 units SQ daily * Ozempic 0.25 mg SQ weekly * A1c = 8.6% (12/26/21) ASSESSMENT: * Rafael is a 76 yo with h/o of T2DM, CKD stage 4, and recurrent complicated UTIs who presented to the ER due to nausea, vomiting, and diarrhea. * On admission, his Lantus dose was decreased to 0-5 units BID. He has required no Lantus thus far. His diet has been advanced to clear liquids. I expect insulin needs to increase if diet advancement is tolerated. * Post prandial BSGs are at goal. No change to Novolog at this time. PLAN FOR INPATIENT GLYCEMIC CONTROL: * Hold outpatient oral diabetes medications * Basal insulin * Lantus 0-5 units SQ BID * Bolus insulin * NovoLog per scale ACHS or Q6hrs while NPO * Goal Range: Low 110 mg/dL - High 140 mg/dL * Correction Factor: 30 mg/dL/unit * Nutritional / Prandial insulin per carb ratio of 1 unit per 12 grams CHO consumed
--- NOTE | 2022-06-13 14:36 | Hospitalist Progress Note ---
Date of Service June 13, 2022 Assessment & Plan (1) Gastroenteritis due to norovirus: Plan: Nausea vomiting and diarrhea prior to admission, tested positive for Norovirus Improving today, nausea resolved but appetite still low. Diarrhea ongoing. Feels stronger today - Supportive care, dc reglan as can worsen diarrhea, start zofran prn nausea - continue LR but decrease to 70 ml/hr -change IV PPI to po -should be self limited -adv diet to clears for today (2) Abnormal urinalysis: Plan: Asymptomatic bacteriuria - Appears essentially the same as his UA in Feb 2022 - Seen by ID at that time, felt that growth of PsA represented colonization in absence of urinary symptoms - Pt denies urinary symptoms BUT does have bladder wall thickening on his CT which he did not have previously - Based on his UA, with tachycardia + leukocytosis (which could be d/t dehydration in the setting of viral GI illness) could also represent sepsis * Because of this, will continue empiric Cefepime 2g IV daily (renally dosed) * Blood cultures NGTD-follow * Urine culture was ordered and is growing GNR -advised Urology follow up as outpatient for possible cystoscopy. No evidence of stones on CT -will dc Cefepime tomorrow if BCxs remain no growth (3) Hypoxia: Plan: Not hypoxic this admission - This was felt to be d/t OHS during his last admission monitor (4) BPH (benign prostatic hyperplasia): Plan: - Continue Flomax 0.4mg HS no acute issues but may have previously contributed to symptomatic UTIs (5) Chronic kidney disease, stage 4 (severe): Plan: - Baseline creatinine 2.2 to 2.4 - Stable, follows with Dr. Fleming as outpatient -Avoid nephrotoxins -renally dose meds when appropriate -follow BMP (6) Hypothyroidism: Plan: - Continue Levothyroxine 88 mcg daily TSH 2.3 in 02/2022 (7) Paroxysmal atrial fibrillation: Plan: - is in aflutter here, rates 100-120s due to dehydration -continue Metoprolol Succinate 12.5mg BID - Can utilize PRN Lopressor if needed -continue Apixaban 5mg BID -monitor on tele (8) Essential hypertension: Plan: - BPs good - continue Lisinopril and Metoprolol (9) Type 2 diabetes mellitus: Plan: - Takes Lantus 18u and Ozempic - Reduce Lantus due to poor po intake. Glucose controlled here - Hold Ozempic - Transition back to HS dosing once diet advanced and tolerating for ease of transition back home - Accuchecks q6h d/t NPO status - Glycemic consult placed to pharmacy for ongoing management Plan DVT proph-Eliquis Dispo-continued stay on med tele, possible dc to home tomorrow if tolerating regular diet and feeling better Admission and Anticipated Discharge Date Admission Date: June 12, 2022 Subjective Pt feels improved, less nauseated, still with diarrhea. Tele with aflutter rates 100-120s Physical Exam Constitutional: WD/WN, vitals as above Eyes: + anicteric sclerae Respiratory: normal respiratory effort, lungs clear to auscultation Cardiovascular: Rate/Rhythm: regular rate and + irregularly irregular Heart Sounds: no murmur Extremities: + edema (1+ edema,chronic venous stasis) Gastrointestinal (Abdomen): normal bowel sounds, soft, nontender, no hepatosplenomegaly Psychiatric: A+Ox3, euthymic affect Results & Data Results & Data ([facility]) Vital Signs (Past 12 Hours) Vital Signs Temp Pulse Resp BP Pulse Ox O2 Del Method O2 Flow Rate 06/13/22 12:49 36.3 C L 65 18 143/69 H 96 Room Air 06/13/22 08:18 36.4 C L 121 H 18 131/69 96 Nasal Cannula 3 06/13/22 07:51 Nasal Cannula 3 06/13/22 03:28 36.5 C 102 H 18 134/72 98 Nasal Cannula 3 Laboratory Results CBC and BMP, LFTs reviewed PG Care Time/CCT Total # of Minutes Spent Total Time Spent with Patient: Total time spent is greater than 50% in coordination of care (as documented) at patient's floor/unit and/or counseling patient: Coding Level of Care Code 83216 SUB INP/OBS CARE 2/35MIN Diagnoses Gastroenteritis due to norovirus A08.11 Abnormal urinalysis R82.90 Hypoxia R09.02 BPH (benign prostatic hyperplasia) N40.0 Chronic kidney disease, stage 4 (severe) N18.4 Hypothyroidism E03.9 Hypothyroidism type: unspecified Paroxysmal atrial fibrillation I48.0 Essential hypertension I10 Type 2 diabetes mellitus E11.9 (6) Hypothyroidism Hypothyroidism type: unspecified Qualified Code(s): E03.9 - Hypothyroidism, unspecified
[2022-06-13] MEDS ORDERED: ONDANSETRON INJ 2 MG/ML 2 ML VIAL IV PRN (14:44)
[2022-06-13] MEDS: TAMSULOSIN HCL 0.4 MG CAP PO SCH (20:38)
[2022-06-14] MEDS: LEVOTHYROXINE SODIUM 88 MCG TABLET PO SCH (05:51)
[2022-06-14 07:28] LABS: BUN Creatinine Ratio 13.2 (10-20); Calcium 8.9 mg/dl (8.5-10.1); Creatinine Clr Calc Pharmacy 39.1 ml/min; Est GFR (African American) 32.7 ml/min; Est GFR (Non-African American) 28.2 ml/min; Potassium 4.4 mmol/L (3.5-5.1)
[2022-06-14] MEDS: APIXABAN 5 MG TABLET PO SCH ×2 (08:56→21:15)
[2022-06-14] MEDS: lisinopril 5 MG TAB PO SCH (08:57)
[2022-06-14] MEDS: METOPROLOL SUCC 25MG EXT REL TAB PO SCH ×2 (08:57→21:15)
[2022-06-14] MEDS: FOLIC ACID 1 MG TAB PO SCH (08:57)
[2022-06-14] MEDS: PANTOprazole 40 MG TAB PO SCH (08:58)
[2022-06-14] MEDS: LANTUS PER UNIT CHARGE SQ SCH (09:09)
[2022-06-14] MEDS: INSULIN ASPART PER UNIT SC SCH ×4 (09:10→21:16)
--- NOTE | 2022-06-14 12:51 | Hospitalist Progress Note ---
Date of Service June 14, 2022 Assessment & Plan (1) Gastroenteritis due to norovirus: Plan: Nausea vomiting and diarrhea prior to admission, tested positive for Norovirus Now much improved. No further diarrhea since 06/13 Still feels shaky and generally weak, lightheaded at times with standing, doesn't feel ready to go home on 06/14 - Supportive care, zofran prn nausea - dc IVFs -continue po PPI -should be self limited -adv diet to low fiber-tolerating (2) Abnormal urinalysis: Plan: Asymptomatic bacteriuria - Appears essentially the same as his UA in Feb 2022 - Seen by ID at that time, felt that growth of PsA represented colonization in absence of urinary symptoms - Pt denies urinary symptoms BUT does have bladder wall thickening on his CT which he did not have previously - Based on his UA, with tachycardia + leukocytosis (which could be d/t dehydration in the setting of viral GI illness) initially thought could represent sepsis * Because of this, was placed on empiric Cefepime 2g IV daily (renally dosed) * Blood cultures remain NGTD * Urine culture growing pansensitive Pseudomonas -advised Urology follow up as outpatient for possible cystoscopy. No evidence of stones on CT -will dc Cefepime today as BCxs remain no growth (3) Hypoxia: Plan: Not hypoxic this admission - This was felt to be d/t OHS during his last admission -wears O2 with naps and qhs -took daytime O2 off of him on rounds as he was 99-100% on 3LNC (4) BPH (benign prostatic hyperplasia): Plan: - Continue Flomax 0.4mg HS no acute issues but may have previously contributed to symptomatic UTIs (5) Chronic kidney disease, stage 4 (severe): Plan: - Baseline creatinine 2.2 to 2.4, rn vascular now down to 2.19 with IVFs here - Stable, follows with Dr. Fleming as outpatient -Avoid nephrotoxins -renally dose meds when appropriate (6) Hypothyroidism: Plan: - Continue Levothyroxine 88 mcg daily TSH 2.3 in 02/2022 (7) Paroxysmal atrial fibrillation: Plan: - is in aflutter here, rates were 100-120s due to dehydration. Now rates normal -continue Metoprolol Succinate 12.5mg BID - Can utilize PRN Lopressor if needed -continue Apixaban 5mg BID -monitor on tele (8) Essential hypertension: Plan: - BPs good - continue Lisinopril and Metoprolol (9) Type 2 diabetes mellitus: Plan: - Takes Lantus 18u and Ozempic - Reduced Lantus initially due to poor po intake. Glucose controlled here - Hold Ozempic - Glycemic consult placed to pharmacy for ongoing management Plan DVT proph-Eliquis Dispo-continued stay on med tele, likely dc to home tomorrow if feeling stronger. PT/OT consults pending Admission and Anticipated Discharge Date Admission Date: June 12, 2022 Subjective Feels much better. Now tolerating low fiber diet, no abd pain, no nausea, no further diarrhea since yesterday. Does not feel ready to go home yet today due to feeling "shaky" and generally weak. Tele with aflutter, rates controlled Physical Exam Constitutional: WD/WN, vitals as above Eyes: + anicteric sclerae Respiratory: normal respiratory effort, lungs clear to auscultation Cardiovascular: Rate/Rhythm: regular rate and + irregularly irregular Heart Sounds: no murmur Extremities: + edema (1+ edema,chronic venous stasis) Gastrointestinal (Abdomen): normal bowel sounds, soft, nontender, no hepatosplenomegaly Psychiatric: A+Ox3, euthymic affect Results & Data Results & Data ([facility]) Vital Signs (Past 12 Hours) Vital Signs Temp Pulse Pulse Resp BP Pulse Ox O2 Del Method 06/14/22 11:50 36.4 C L 87 20 144/79 H 100 Nasal Cannula 06/14/22 10:45 Nasal Cannula 06/14/22 07:46 36.4 C L 109 H 20 137/76 98 Nasal Cannula 06/14/22 07:31 119 H 06/14/22 03:11 35.9 C L 120 H 18 146/79 H 100 Nasal Cannula O2 Flow Rate 06/14/22 11:50 3 06/14/22 10:45 3 06/14/22 07:46 2 06/14/22 07:31 06/14/22 03:11 2 Laboratory Results BMP, magnesium level reviewed Ur cx with pansens Pseudomonas BCxs remain NGTD PG Care Time/CCT Total # of Minutes Spent Total Time Spent with Patient: Total time spent is greater than 50% in coordination of care (as documented) at patient's floor/unit and/or counseling patient: Coding Level of Care Code 65492 SUB INP/OBS CARE MIN Diagnoses Gastroenteritis due to norovirus A08.11 Abnormal urinalysis R82.90 Hypoxia R09.02 BPH (benign prostatic hyperplasia) N40.0 Chronic kidney disease, stage 4 (severe) N18.4 Hypothyroidism E03.9 Hypothyroidism type: unspecified Paroxysmal atrial fibrillation I48.0 Essential hypertension I10 Type 2 diabetes mellitus E11.9 (6) Hypothyroidism Hypothyroidism type: unspecified Qualified Code(s): E03.9 - Hypothyroidism, unspecified
--- NOTE | 2022-06-14 15:20 | Pharmacy Report ---
Pharmacy Glycemic Short Note 2 - Date of Service June 14, 2022 - Glycemic Short BSG Results (Last 24 hours): 06/13/22 06/13/22 06/14/22 16:54 20:34 06:08 Glucose 118 H POC Glucose 96 109 H 06/14/22 06/14/22 06/14/22 07:30 11:30 15:02 Glucose POC Glucose 113 H 102 H 83 OUTPATIENT ANTIDIABETIC REGIMEN: * Lantus 18 units SQ daily * Ozempic 0.25 mg SQ weekly * A1c = 8.6% (12/26/21) ASSESSMENT: 06/14/22: * Rafael required no insulin yesterday. BSGs: 124, 120, 121, 96, 109 mg/dL. * Diet advanced to low fiber. Tolerating per provider notes. * Fasting BSG of 113 mg/dL this morning. Patient was administered Lantus 5 units (per order, patient to receive zero units). BSG trending down. If this trend continues, overnight checks will be added to assess for hypoglycemia. 06/13/22: * Rafael is a 76 yo with h/o of T2DM, CKD stage 4, and recurrent complicated UTIs who presented to the ER due to nausea, vomiting, and diarrhea. * On admission, his Lantus dose was decreased to 0-5 units BID. He has required no Lantus thus far. His diet has been advanced to clear liquids. I expect insulin needs to increase if diet advancement is tolerated. * Post prandial BSGs are at goal. No change to Novolog at this time. PLAN FOR INPATIENT GLYCEMIC CONTROL: * Hold outpatient oral diabetes medications * Basal insulin * Lantus 0-5 units SQ BID * Bolus insulin * NovoLog per scale ACHS or Q6hrs while NPO * Goal Range: Low 110 mg/dL - High 140 mg/dL * Correction Factor: 30 mg/dL/unit * Nutritional / Prandial insulin per carb ratio of 1 unit per 12 grams CHO consumed
[2022-06-14] MEDS: TAMSULOSIN HCL 0.4 MG CAP PO SCH (21:15)
[2022-06-15] MEDS ORDERED: INSULIN ASPART PER UNIT SC SCH
[2022-06-15] MEDS: LEVOTHYROXINE SODIUM 88 MCG TABLET PO SCH (05:51)
[2022-06-15] MEDS: METOPROLOL SUCC 25MG EXT REL TAB PO SCH (08:13)
[2022-06-15] MEDS: PANTOprazole 40 MG TAB PO SCH (08:13)
[2022-06-15] MEDS: FOLIC ACID 1 MG TAB PO SCH (08:15)
[2022-06-15] MEDS: lisinopril 5 MG TAB PO SCH (08:15)
[2022-06-15] MEDS: INSULIN ASPART PER UNIT SC SCH ×2 (08:15→12:12)
[2022-06-15] MEDS: APIXABAN 5 MG TABLET PO SCH (08:15)
--- NOTE | 2022-06-15 11:20 | Discharge Summary ---
Date of Service June 15, 2022 Admission HPI Per Admitting Provider Mr. 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 He denies any ill contacts or going out to eat. He lives alone and has no one coming into the home to help him. He reports he vomited 4x since symptoms started with several episodes of loose stools also. He c/o epigastric abdominal discomfort. He denies fever, chills. Denies suprapubic pain, urinary frequency, urgency, dysuria, or hematuria. His work up in the ER revealed a mildly elevated wbc count of 12.8 with left shift, baseline creatinine at 2.31 (baseline is 2.2-2.4), and a UA that appears grossly infected, however, appears the same as it did from his Feb 2022 admission. Patient was medicated with a dose of Zofran, however, did not relieve his vomiting and was subsequently given Reglan which provided some improvement. He was given a dose of IV Cefepime d/t his history of pseudomonal UTIs based on the appearance of his UA in the ER today. Hospitalists have been contacted for admission for further evaluation. Principal Diagnosis 1. Gastroenteritis secondary to norovirus 2. +Urine culture for pseudomonas secondary to chronic colonization Discharge Exam GENERAL: 76 yo obese WM. NAD. LUNGS: Clear to auscultation bilaterally. CARDIOVASCULAR: Irregularly irregular with CVR, no m/g/r ABDOMEN: Soft, obese, nontender. +BS x 4 quad. Discharge Data Allergies Allergy/AdvReac Type Severity Reaction Status Date / Time ciprofloxacin [From Cipro] AdvReac Intermediate Upset Verified 05/29/22 14:46 Stomach, Nausea, GI Discomfort Consultations 06/12/22 12:02 ED Decision to Admit Stat Ordered Studies Abdomen/Pelvis CT 06/12/22 10:07 CT abd pelvis wo con CLINICAL HISTORY: abd pain vomiting TECHNIQUE: Helical axial images of the abdomen and pelvis were obtained. Automated dose lowering techniques and/or adjustment according to patient size were utilized for this exam. This exam was performed without intravenous contrast. CT DOSE: 1098.14 mGycm COMPARISON: Comparison is made to CT abdomen pelvis 11/27/2021 FINDINGS: Lower chest: Bibasilar atelectasis is seen with rounded atelectasis in the left lung base. Cardiomegaly is noted. Liver: Unremarkable. No focal lesions are seen. Gallbladder and biliary tree: Redemonstration of hyperdense contents of the gallbladder with stones noted, findings likely represent sludge. No intra- or extrahepatic biliary ductal dilation. Pancreas: Unremarkable, no focal lesions. Spleen: Unremarkable. Adrenals: Unremarkable. Kidneys and ureters: Atrophic appearance of the bilateral kidneys. Bladder: Mild thickening of the bladder wall is noted. Reproductive organs: Unremarkable. Bowel: Diverticulosis is seen without evidence of diverticulitis. Lymph nodes Retroperitoneal: Unremarkable. Pelvic: Unremarkable. Mesenteric: Unremarkable. Peritoneum: Normal. Vessels: Atherosclerotic calcifications are seen. Abdominal wall: Left fat containing inguinal hernia. Bones: Degenerative changes in the visualized spine. IMPRESSION: 1. No acute abnormalities and in particular no evidence of bowel obstruction. 2. Thickening of the bladder wall is nonspecific, correlation with urinalysis is recommended to exclude UTI. 3. Gallbladder sludge and gallstones without evidence of cholecystitis. ACT 112: Negative or not required by law. Electronically signed by: Moshe Rodrigez M.D. 06/12/2022 10:57 AM Hospital Course (1) Gastroenteritis due to norovirus: Nausea vomiting and diarrhea prior to admission, tested positive for Norovirus Now much improved. No further diarrhea since 06/13 - kept NPO on admit, fluids and antiemetics given - Given IV PPI and transitioned to PO - self limited viral illness, continue supportive care - adv diet to low fiber which he is tolerating well w/o complaints of n/v (2) Abnormal urinalysis: Asymptomatic bacteriuria - Appears essentially the same as his UA in Feb 2022 - Seen by ID at that time, felt that growth of PsA represented colonization in absence of urinary symptoms - Pt denies urinary symptoms BUT does have bladder wall thickening on his CT which he did not have previously - Based on his UA, with tachycardia + leukocytosis (which could be d/t dehydration in the setting of viral GI illness) initially thought could re present sepsis * Because of this, was placed on empiric Cefepime 2g IV daily (renally dosed) * Blood cultures remain NGTD * Urine culture growing pansensitive Pseudomonas -advised Urology follow up as outpatient for possible cystoscopy. No evidence of stones on CT -will dc Cefepime today as BCxs remain no growth and per ID's prior recs, no need to treat as he is chronically colonized and has no urinary symptoms (3) Hypoxia: Not hypoxic this admission - This was felt to be d/t OHS during his last admission - wears O2 with naps and qhs - took daytime O2 off of him on rounds as he was 99-100% on 3LNC (4) BPH (benign prostatic hyperplasia): - Continue Flomax 0.4mg HS no acute issues but may have previously contributed to symptomatic UTIs (5) Chronic kidney disease, stage 4 (severe): - Baseline creatinine 2.2 to 2.4, scrap carrier now down to 2.19 with IVFs here - Stable, follows with Dr. Fleming as outpatient - Avoid nephrotoxins - renally dose meds when appropriate (6) Hypothyroidism: - Continue Levothyroxine 88 mcg daily TSH 2.3 in 02/2022 (7) Paroxysmal atrial fibrillation: -in aflutter here, rates were 100-120s due to dehydration. Now rates normal -continue Metoprolol Succinate 12.5mg BID -continue Apixaban 5mg BID (8) Essential hypertension: - BPs good - continue Lisinopril and Metoprolol (9) Type 2 diabetes mellitus: - Takes Lantus 18u and Ozempic - Reduced Lantus initially due to poor po intake. - Resume home med regimen Plan Patient is medically and hemodynamically stable for discharge home today. Above plan of care has been d/w Dr. Jiménez who has also seen and evaluated this patient and agrees with aforementioned. Total Time Total Time Spent Total Time Spent (In Minutes): >30 minutes Discharge Plan Discharge Items Patient Disposition: Home - Self-Care Reason For Visit: SEPSIS, UTI Discharge Diagnosis: gastroenteritis Activity: Resume your previous activity Non-emergency contact: Primary Care Provider Call non-emergency contact if: you have any medication questions Follow-up/Referrals: Mann Bright NP-C [Primary Care Provider] - (PLEASE CALL YOUR PRIMARY CARE PROVIDER TO SCHEDULE A DISCHARGE FOLLOW-UP APPOINTMENT WITHIN 7-10 DAYS. ) Diet: Carb Consistent or DM2 Addtl Attending Provider Instructions: You were hospitalized due to a gastrointestinal illness caused by a contagious virus. You were treated with supportive measures including IV fluids and anti nausea medications. Your symptoms have improved. You can eat a diet as tolerated. It is recommended that you follow up with your family doctor within 1 week. If you have any questions or concerns following your discharge, you can call the nonemergency number listed on your paperwork. In the event of a medical emergency, call 911 or go to your nearest emergency room. Pending Studies at Discharge: No Stand-Alone Forms: My [facility], Smoking Cessation Medications and DC Order Prescriptions: Continued lisinopril 5 mg tablet 5 mg PO DAILY Qty: 90 3RF pantoprazole 40 mg tablet,delayed release (DR/EC) 40 mg PO DAILY Qty: 30 2RF apixaban 5 mg tablet 5 mg PO BID cholecalciferol (vitamin D3) 25 mcg (1,000 unit) capsule 25 mcg PO QAM folic acid 1 mg tablet 1 mg PO QAM levothyroxine 88 mcg capsule 88 mcg PO DAILYBB metoprolol succinate 25 mg tablet extended release 24 hr 12.5 mg PO BID Ozempic 0.25 mg or 0.5 mg(2 mg/1.5 mL) Pen Injector 0.25 mg SUBCUT WK Rx Instructions: TAKES ON THURSDAYS. 02/12/22 IS LAST DOSE OF 0.25MG, THEN INCREASE NEXT WEEK TO 0.5 MG. tamsulosin 0.4 mg Capsule 0.4 mg PO HS Qty: 30 0RF fluticasone propionate 50 mcg/actuation [place],Suspension 1 spray NA BID Qty: 16 0RF phenol 1.4 % aerosol,spray 2 spray mucous membrane Q4H PRN (Reason: sore throat) Qty: 20 0RF insulin glargine [Lantus Solostar U-100 Insulin] 100 unit/mL (3 mL) insulin pen 18 unit subcut ONCE trazodone 50 mg tablet 50 mg PO HS PRN (Reason: Sleep) ferrous sulfate [FeroSul] 325 mg (65 mg iron) tablet 325 mg PO QAM gabapentin 100 mg capsule 100 mg PO QID PRN (Reason: Nerve Pain) Discharge Orders: Discharge Order (Routine); Ordered 06/15/22 Ordered By: Makayla Ariza Admission Data Admit Date/Time: 06/12/22 13:11 Attending Provider: Dario Jiménez Admit Provider: Elan Hebert Primary Care Provider: Mann Bright Other Providers: Elan Hebert ; [facility],Hospital Coding Level of Care Code 54129 INP/OBS DISCH >30 MIN Diagnoses Gastroenteritis due to norovirus A08.11 Abnormal urinalysis R82.90 Hypoxia R09.02 BPH (benign prostatic hyperplasia) N40.0 Chronic kidney disease, stage 4 (severe) N18.4 Hypothyroidism E03.9 Hypothyroidism type: unspecified Paroxysmal atrial fibrillation I48.0 Essential hypertension I10 Type 2 diabetes mellitus E11.9
== END 2022-06-15 17:13 | disposition home or self-care (01) | DRG 872 ==
LOC: ED 08:14 → EDINP 12:33 → SUATTDRO 12:33 → 2N 14:53

== ENCOUNTER 2023-11-14 22:19 | Inpatient (IN) ==
[2023-11-14] MEDS: SODIUM CHLORIDE 0.9% 500 ML IV ONE (22:54)
[2023-11-14 22:58] LABS: Basophils # (auto) 0.03 K/uL (0.00-0.20); Basophils % (auto) 0.3 %; Eosinophils # (auto) 0.17 K/uL (0.00-0.50); Eosinophils % (auto) 1.7 %; Hematocrit (blood only) 40.3 % (42.0-52.0); Hemoglobin 12.3 g/dl (14.0-18.0); Immature Granulocytes # (auto) 0.05 K/uL (0.01-0.20); Immature Granulocytes % (auto) 0.5 %; Lymphocytes # (auto) 0.96 K/uL (1.20-3.40); Lymphocytes % (auto) 9.7 %; Mean Corpuscular Hemoglobin 28.9 pg (25.0-34.0); Mean Corpuscular Hgb Conc 30.5 g/dL (32.0-36.0); Mean Corpuscular Volume 94.6 fL (80.0-100.0); Mean Platelet Volume 10.3 fL (9.4-12.4); Monocytes # (auto) 0.65 K/uL (0.11-0.59); Monocytes % (auto) 6.6 %; Neutrophils # (auto) 7.99 K/uL (1.40-6.50); Neutrophils % (auto) 81.2 %; Platelet Count 265 K/uL (130-400); RDW Coefficient of Variation 16.3 % (11.5-14.5); RDW Standard Deviation 56.3 fL (36.4-46.3); Red Blood Count 4.26 M/uL (4.70-6.10); White Blood Count 9.85 K/ul (4.8-10.8)
[2023-11-14 23:11] LABS: Albumin Globulin Ratio 0.9 (0.9-2); Albumin Level 3.8 gm/dl (3.4-5.0); BUN Creatinine Ratio 12.9 (10-20); Bilirubin,Total 0.5 mg/dl (0.2-1.0); Calcium 9.4 mg/dl (8.6-10.3); Creatinine Clr Calc Pharmacy 41.6 ml/min; Est GFR (African American) 33.9 ml/min; Est GFR (Non-African American) 29.3 ml/min; Globulin 4.2 gm/dl (2.5-4.0); Magnesium 2.2 mg/dl (1.7-2.4); Potassium 4.1 mmol/L (3.5-5.1)
[2023-11-14 23:17] LABS: Troponin I High Sensitivity 7.7 pg/ml (0-20)
[2023-11-14 23:28] LABS: Partial Thromboplastin Ratio 1.1; Partial Thromboplastin Time 29 Seconds (21-31); Prothrombin Time 10.9 Seconds (9.0-12.0)
[2023-11-14 23:33] LABS: Appearance Urine Cloudy (Clear); Bacteria Urine Automated 4+ (None Seen); Bilirubin Urine Negative (Negative); Blood Urine 1+ (Negative); Color Urine Yellow; Epithelial Cell Urine Auto 0-2 /hpf (0-2); Glucose Urine UA Negative (Negative); Ketones Urine Negative (Negative); Leukocyte Esterase Urine 3+ (Negative); Nitrite Urine Positive (Negative); Protein Urine 1+ (Negative); Specific Gravity Urine 1.012 (1.000-1.030); Urobilinogen Urine Negative (Negative); WBC Urine Automated >50 /hpf (0-5)
[2023-11-14 23:42] LABS: Cast Urine Automated 0-2 /lpf (0-2); Sperm Urine Present (None Prsent)
--- NOTE | 2023-11-15 00:01 | Emergency Department Note ---
Impression & Plan Acute UTI, Weakness Admit to the [facility] ED Provider Note NAME: DOMITILA BAUM AGE: 78 SEX: Male INFORMANT: Patient ED PROVIDER(S): Katelynn Pacheco DO CHIEF COMPLAINT: hot flash; nausea and weakness PLAN: Disposition: Admit to the [facility] MEDICAL DECISION MAKING: this is a 78-year-old male patient who had an episode at 9 PM this evening of a hot flash, nausea, shakiness and weakness. The patient became so weak he felt near syncopal. He called 911 to come to the emergency department. During my evaluation of the patient, he had urinary urgency which is new for him. He does describe 1 episode of dysuria earlier in the day. He also states early in the a.m. this morning he had some achiness in his jaw. Laboratory studies revealed no leukocytosis. The patient is afebrile. Glucose was 122. Troponin was normal. BUN was 27 and creatinine was 2.1 which are baseline for this patient. Urinalysis was significantly positive for urinary tract infection. Patient is suffering from significant weakness and does not feel safe to go home. He has having significant urinary frequency while here in the emergency department. He remains hemodynamically stable. I discussed the case with the [facility] and they will evaluate for further management. Care/management discussed with: territory sales manager medical and [facility] Triage Nursing notes: reviewed and agree them. Vital Signs: reviewed and remarkable for hypertension Chronic Medical/Social Conditions affecting care: The patient lives by himself Differential Diagnosis: Sepsis, UTI, hypoglycemia, dehydration, cardiac ischemia, cardiac dysrhythmia Diagnostics, independently interpreted by me: ECG: Normal sinus rhythm at a rate 86 with PVCs. There is no ST segment elevation or signs of ischemia. There is no ectopy. Cardiac Monitoring: Normal sinus rhythm at a rate of 90 HPI: 78 year old Male arrives for evaluation of weakness and near syncope. Patient has sudden onset of hot flashes and nausea with extreme weakness and shakiness around 9 PM this evening. PAST MEDICAL HISTORY: See Below, PAST SURGICAL HISTORY: See Below, SOCIAL HISTORY: See Below, HOME MEDICATIONS: See list ALLERGIES: See list VITALS: See Below PHYSICAL EXAMINATION: HEENT: Head - normocephalic and atraumatic. Pupils are equal, round, and reactive to light. Extraocular eye muscles are intact, and sclera are anicteric. Nose - moist nasal mucosa without discharge. Mouth - moist buccal mucosa. Oropharynx is nonerythematous and there is no tonsillar exudate or edema noted. Neck: Supple; no JVD, nuchal rigidity, cervical lymphadenopathy, or auscultated bruits. Heart: Regular rate and rhythm. There is a normal S1 and S2 with no murmurs, clicks, or gallops appreciated. Lungs: Lung sounds are distant secondary to body habitus. Clear to auscultation bilaterally with no wheezes, rales, or rhonchi. Abdomen: Soft, completely nontender, nondistended, with good bowel sounds. There are no palpable pulsatile masses or hepatosplenomegaly. There is no guarding, rigidity, or rebound noted. Extremities: No evidence of cyanosis, clubbing, or edema. There are easily palpable peripheral pulses. Skin: warm and diaphoretic with good turgor and no rashes. Emergency department treatment: ekg monitor, IV normal saline bolus, IV Zosyn Emergency department course: The patient was evaluated in room C-1. A complete history and physical was performed. A septic protocol was performed. Because of the national shortage of blood culture test tubes, these were not performed. An order was placed for continuous cardiac monitoring. The patient was in a normal sinus rhythm at a rate of 90. The patient had frequent episodes of urination while here in the emergency department. Urine specimen was obtained and appeared to be infected. The patient was treated with a dose of IV Zosyn. The patient felt extreme weakness while here in the emergency department did not feel safe to go home. I discussed the case with the [facility] Hospitalist and they will evaluate for further inpatient care. 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 Morbid obesity with BMI of 45.0-49.9, adult Chronic kidney disease, stage 4 (severe) Hypothyroidism (Acute) Paroxysmal atrial fibrillation 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) Hyperlipidemia Essential hypertension BPH w/o urinary obs/LUTS Age-related nuclear cataract, right eye Surgical History H/O skin graft History of arthroplasty of right ankle has 6 pins in it, had a Fx No significant past surgical history Family History Grandfather (Maternal) Diabetes Grandfather (Paternal) Arteriosclerosis Mother Hypertension Father Stomach ulcer Denies family history of Ovarian cancer Prostate cancer Breast cancer Lung cancer Colorectal cancer Social History Smoking Status: Never smoker Second Hand Exposure: No; Do You Dip or Chew Tobacco: No; Hx Alcohol Use: No Hx Substance Use: No Preferred Language: Montserratian Communication Ability: Effective Supervisor [employer] Required: No Beliefs That Will Affect Care: None marital status: Unknown Current Living Situation: Alone Current Living Situation Comment: studio apartment Other Information That Helps Us Care for You: No Feels Safe at Home: Yes Safety Concerns: Feels Safe At This Time Dental Care, Regularly: No Physical Activity Frequency: Does not Exercise Seatbelt Use: always Sunscreen Use: No Do you think of yourself as: straight/heterosexual Gender Identity: Male Assistive Devices: CPAP, Glasses, Oxygen - at Night and Walker Allergies Allergies Allergy/AdvReac Type Severity Reaction Status Date / Time ciprofloxacin [From Cipro] AdvReac Intermediate Upset Verified 08/11/23 14:07 Stomach, Nausea, GI Discomfort Home Meds Home Medications Medication Instructions Recorded Confirmed apixaban 5 mg tablet 5 mg PO BID 04/25/21 08/11/23 cholecalciferol (vitamin D3) 25 25 mcg PO QAM 04/25/21 08/11/23 mcg (1,000 unit) capsule folic acid 1 mg tablet 1 mg PO QAM 04/25/21 08/11/23 levothyroxine 88 mcg capsule 88 mcg PO DAILYBB 04/25/21 08/11/23 ferrous sulfate 325 mg (65 mg 325 mg PO QAM 06/30/21 08/11/23 iron) tablet (FeroSul) gabapentin 100 mg capsule 100 mg PO QID PRN Nerve Pain 06/30/21 08/11/23 trazodone 50 mg tablet 50 mg PO HS PRN Sleep 06/30/21 08/11/23 insulin glargine 100 unit/mL (3 18 unit subcut ONCE 05/29/22 08/11/23 mL) subcutaneous pen (Lantus Solostar U-100 Insulin) fluticasone propionate 50 1 spray intranasal BID PRN 08/06/23 08/11/23 mcg/actuation nasal spray,suspension metoprolol succinate 25 mg 25 mg PO DAILY 08/06/23 08/11/23 tablet,extended release 24 hr pantoprazole 40 mg tablet,delayed 40 mg PO DAILY PRN 08/06/23 08/11/23 release Previous Rx's Medication Instructions Recorded lisinopril 5 mg tablet 5 mg PO DAILY #90 tabs 01/08/22 tamsulosin 0.4 mg capsule 0.4 mg PO HS #30 caps 02/18/22 phenol 1.4 % mucosal aerosol spray 2 spray mucous membrane Q4H PRN 02/19/22 sore throat #20 mL empagliflozin 10 mg tablet 10 mg PO DAILY #90 tabs 08/11/23 (Jardiance) furosemide 20 mg tablet (Lasix) 20 mg PO DAILY #90 tabs 08/11/23 Results & Data (ED) Vital Signs Vital Signs - 24 hr 11/14/23 22:10 11/14/23 22:13 11/14/23 22:24 Temperature 36.6 C 36.6 C Temperature Source Oral Oral Pulse Rate 86 Pulse Rate [Right Finger] 80 Pulse Rate from SpO2 Sensor Respiratory Rate 17 19 Blood Pressure 216/85 H 204/91 H Blood Pressure [Right Arm] 216/85 H Blood Pressure Mean 128 159 Blood Pressure Mean [Right Arm] 128 Pulse Oximetry 98 96 Oxygen Delivery Method Room Air Room Air Sepsis Recent Fever Within 48 Hours No Sepsis New/Unexplained Change in Mental Status No Sepsis Action Taken by Nursing No Action Required 11/14/23 22:27 11/14/23 22:27 11/14/23 22:29 Temperature Temperature Source Pulse Rate 82 Pulse Rate [Right Finger] Pulse Rate from SpO2 Sensor Respiratory Rate Blood Pressure 216/85 H 216/85 H Blood Pressure [Right Arm] Blood Pressure Mean 134 134 Blood Pressure Mean [Right Arm] Pulse Oximetry Oxygen Delivery Method Sepsis Recent Fever Within 48 Hours Sepsis New/Unexplained Change in Mental Status Sepsis Action Taken by Nursing 11/14/23 22:30 11/14/23 22:42 11/14/23 22:42 Temperature Temperature Source Pulse Rate 82 83 Pulse Rate [Right Finger] Pulse Rate from SpO2 Sensor 82 82 Respiratory Rate 21 17 Blood Pressure Blood Pressure [Right Arm] Blood Pressure Mean Blood Pressure Mean [Right Arm] Pulse Oximetry 96 91 93 Oxygen Delivery Method Room Air Sepsis Recent Fever Within 48 Hours Sepsis New/Unexplained Change in Mental Status Sepsis Action Taken by Nursing 11/14/23 22:43 11/14/23 22:54 11/14/23 22:57 Temperature Temperature Source Pulse Rate 82 79 Pulse Rate [Right Finger] Pulse Rate from SpO2 Sensor 81 79 Respiratory Rate 15 18 Blood Pressure Blood Pressure [Right Arm] Blood Pressure Mean Blood Pressure Mean [Right Arm] Pulse Oximetry 91 95 92 Oxygen Delivery Method Room Air Sepsis Recent Fever Within 48 Hours Sepsis New/Unexplained Change in Mental Status Sepsis Action Taken by Nursing 11/14/23 23:01 11/14/23 23:01 11/14/23 23:02 Temperature Temperature Source Pulse Rate Pulse Rate [Right Finger] 82 Pulse Rate from SpO2 Sensor Respiratory Rate Blood Pressure 204/81 H 204/81 H Blood Pressure [Right Arm] 204/81 H Blood Pressure Mean 109 109 Blood Pressure Mean [Right Arm] 122 Pulse Oximetry Oxygen Delivery Method Sepsis Recent Fever Within 48 Hours Sepsis New/Unexplained Change in Mental Status Sepsis Action Taken by Nursing 11/14/23 23:06 11/14/23 23:27 11/14/23 23:30 Temperature Temperature Source Pulse Rate 84 76 78 Pulse Rate [Right Finger] Pulse Rate from SpO2 Sensor 84 76 79 Respiratory Rate 18 13 16 Blood Pressure Blood Pressure [Right Arm] Blood Pressure Mean Blood Pressure Mean [Right Arm] Pulse Oximetry 96 97 100 Oxygen Delivery Method Sepsis Recent Fever Within 48 Hours Sepsis New/Unexplained Change in Mental Status Sepsis Action Taken by Nursing 11/14/23 23:45 11/14/23 23:51 11/15/23 00:09 Temperature Temperature Source Pulse Rate 84 83 81 Pulse Rate [Right Finger] Pulse Rate from SpO2 Sensor 85 83 81 Respiratory Rate 16 17 13 Blood Pressure Blood Pressure [Right Arm] Blood Pressure Mean Blood Pressure Mean [Right Arm] Pulse Oximetry 100 99 99 Oxygen Delivery Method Sepsis Recent Fever Within 48 Hours Sepsis New/Unexplained Change in Mental Status Sepsis Action Taken by Nursing 11/15/23 00:12 11/15/23 00:21 11/15/23 00:31 Temperature Temperature Source Pulse Rate 82 84 Pulse Rate [Right Finger] Pulse Rate from SpO2 Sensor 83 83 Respiratory Rate 16 17 Blood Pressure 189/77 H Blood Pressure [Right Arm] Blood Pressure Mean 102 Blood Pressure Mean [Right Arm] Pulse Oximetry 100 99 Oxygen Delivery Method Sepsis Recent Fever Within 48 Hours Sepsis New/Unexplained Change in Mental Status Sepsis Action Taken by Nursing 11/15/23 00:31 11/15/23 00:33 11/15/23 00:42 Temperature Temperature Source Pulse Rate 83 84 Pulse Rate [Right Finger] Pulse Rate from SpO2 Sensor 83 84 Respiratory Rate 23 20 Blood Pressure 189/77 H Blood Pressure [Right Arm] Blood Pressure Mean 102 Blood Pressure Mean [Right Arm] Pulse Oximetry 98 99 Oxygen Delivery Method Sepsis Recent Fever Within 48 Hours Sepsis New/Unexplained Change in Mental Status Sepsis Action Taken by Nursing 11/15/23 00:57 11/15/23 01:09 11/15/23 01:12 Temperature Temperature Source Pulse Rate 84 79 85 Pulse Rate [Right Finger] Pulse Rate from SpO2 Sensor 85 80 82 Respiratory Rate 17 15 17 Blood Pressure Blood Pressure [Right Arm] Blood Pressure Mean Blood Pressure Mean [Right Arm] Pulse Oximetry 100 98 100 Oxygen Delivery Method Room Air Sepsis Recent Fever Within 48 Hours Sepsis New/Unexplained Change in Mental Status Sepsis Action Taken by Nursing 11/15/23 01:30 11/15/23 01:30 11/15/23 01:51 Temperature Temperature Source Pulse Rate 83 Pulse Rate [Right Finger] Pulse Rate from SpO2 Sensor 83 Respiratory Rate 14 Blood Pressure 186/85 H 186/85 H Blood Pressure [Right Arm] Blood Pressure Mean 124 124 Blood Pressure Mean [Right Arm] Pulse Oximetry 98 Oxygen Delivery Method Sepsis Recent Fever Within 48 Hours Sepsis New/Unexplained Change in Mental Status Sepsis Action Taken by Nursing 11/15/23 02:00 11/15/23 02:00 11/15/23 02:00 Temperature Temperature Source Pulse Rate 80 Pulse Rate [Right Finger] Pulse Rate from SpO2 Sensor 79 Respiratory Rate 15 Blood Pressure 169/106 H 169/106 H Blood Pressure [Right Arm] Blood Pressure Mean 124 124 Blood Pressure Mean [Right Arm] Pulse Oximetry 98 Oxygen Delivery Method Sepsis Recent Fever Within 48 Hours Sepsis New/Unexplained Change in Mental Status Sepsis Action Taken by Nursing 11/15/23 02:12 Temperature Temperature Source Pulse Rate 90 Pulse Rate [Right Finger] Pulse Rate from SpO2 Sensor 91 H Respiratory Rate 18 Blood Pressure Blood Pressure [Right Arm] Blood Pressure Mean Blood Pressure Mean [Right Arm] Pulse Oximetry 98 Oxygen Delivery Method Sepsis Recent Fever Within 48 Hours Sepsis New/Unexplained Change in Mental Status Sepsis Action Taken by Nursing Laboratory Data 11/14/23 22:27 11/14/23 22:27 Lab Results 11/14/23 11/14/23 11/15/23 Range/Units 22:27 22:55 00:18 WBC 9.85 (4.8-10.8) K/ul RBC 4.26 L (4.70-6.10) M/uL Hgb 12.3 L (14.0-18.0) g/dl Hct 40.3 L (42.0-52.0) % MCV 94.6 (80.0-100.0) fL MCH 28.9 (25.0-34.0) pg MCHC 30.5 L (32.0-36.0) g/dL RDW Std Deviation 56.3 H (36.4-46.3) fL RDW Coeff of Yolanda 16.3 H (11.5-14.5) % Plt Count 265 (130-400) K/uL MPV 10.3 (9.4-12.4) fL Immature Gran % (Auto) 0.5 % Neut % (Auto) 81.2 % Lymph % (Auto) 9.7 % Christian % (Auto) 6.6 % Eos % (Auto) 1.7 % Baso % (Auto) 0.3 % Neut # (Auto) 7.99 H (1.40-6.50) K/uL Lymph # (Auto) 0.96 L (1.20-3.40) K/uL Christian # (Auto) 0.65 H (0.11-0.59) K/uL Eos # (Auto) 0.17 (0.00-0.50) K/uL Baso # (Auto) 0.03 (0.00-0.20) K/uL Immature Gran # (Auto) 0.05 (0.01-0.20) K/uL PT 10.9 (9.0-12.0) Seconds INR 1.0 (0.9-1.1) APTT 29 (21-31) Seconds PTT Ratio 1.1 Sodium 142 (136-145) mmol/L Potassium 4.1 (3.5-5.1) mmol/L Chloride 108 H (98-107) mmol/L Carbon Dioxide 26 (21-32) mmol/L Anion Gap 8 (3-11) BUN 27 H (6-23) mg/dl Creatinine 2.10 H (0.6-1.4) mg/dl Est Cr Clr Drug Dosing 41.6 ml/min Est GFR ( Amer) 33.9 ml/min Est GFR (Non-Af Amer) 29.3 ml/min BUN/Creatinine Ratio 12.9 (10-20) Glucose 122 H (70-99(Fasting)) mg/dl Lactate 1.3 (0.4-2.0) mmol/L Calcium 9.4 (8.6-10.3) mg/dl Magnesium 2.2 (1.7-2.4) mg/dl Total Bilirubin 0.5 (0.2-1.0) mg/dl AST 14 (13-39) U/L ALT 10 (7-52) U/L Alkaline Phosphatase 57 (34-104) U/L Troponin I High Sens 7.7 (0-20) pg/ml Total Protein 8.0 (6.0-8.3) gm/dl Albumin 3.8 (3.4-5.0) gm/dl Globulin 4.2 H (2.5-4.0) gm/dl Albumin/Globulin Ratio 0.9 (0.9-2) Procalcitonin 0.10 (0-0.5) ng/ml Urine Color Yellow Urine Appearance Cloudy A (Clear) Urine pH 7.0 (4.5-7.5) Ur Specific [place] 1.012 (1.000-1.030) Urine Protein 1+ H (Negative) Urine Glucose (UA) Negative (Negative) Urine Ketones Negative (Negative) Urine Blood 1+ H (Negative) Urine Nitrite Positive A (Negative) Urine Bilirubin Negative (Negative) Urine Urobilinogen Negative (Negative) Ur Leukocyte Esterase 3+ H (Negative) Urine WBC (Auto) >50 H (0-5) /hpf Urine RBC (Auto) 11-20 H (0-2) /hpf U Hyaline Cast (Auto) 0-2 (0-2) /lpf U Epithel Cells (Auto) 0-2 (0-2) /hpf Urine Bacteria (Auto) 4+ H (None Seen) Urine Sperm Present A (None Prsent) Administered Medications Apixaban (Apixaban 5 Mg Tablet) 5 mg PO BID LEE Stop: 12/15/23 10:59 Last Admin: 11/15/23 11:51 Dose: 5 mg Documented By: JOSE Furosemide (Furosemide 20 Mg Tab) 20 mg PO DAILY LEE Stop: 12/15/23 08:59 Last Admin: 11/15/23 10:16 Dose: Not Given Documented By: JOSE Piperacillin Sod/Tazobactam (Sod 4.5 gm/ Dextrose) 100 mls @ 25 mls/hr IV Q8H [facility]; Protocol Stop: 11/20/23 05:59 Last Infusion: 11/15/23 19:25 Dose: Infused Documented By: Admin: 11/15/23 14:44 Dose: 25 mls/hr Documented By: Infusion: 11/15/23 10:43 Dose: Infused Documented By: Admin: 11/15/23 06:18 Dose: 25 mls/hr Documented By: JUSTEN Insulin Aspart (Insulin Aspart Per Unit Charge) 0 units SC ACHS LEE Stop: 12/15/23 07:29 Last Admin: 11/15/23 18:02 Dose: Not Given Documented By: Admin: 11/15/23 12:37 Dose: 1 units Documented By: JOSE Co-signed By: OBI Admin: 11/15/23 08:25 Dose: Not Given Documented By: JOSE Levothyroxine Sodium (Levothyroxine Sodium 88 Mcg Tablet) 88 mcg PO DAILYBB [facility] Stop: 12/15/23 06:29 Last Admin: 11/15/23 07:24 Dose: 88 mcg Documented By: JUSTEN Lisinopril (Lisinopril 5 Mg Tab) 5 mg PO DAILY LEE Stop: 12/15/23 08:59 Last Admin: 11/15/23 08:22 Dose: 5 mg Documented By: JOSE Metoprolol Succinate (Metoprolol Succ 25mg Ext Rel Tab) 25 mg PO DAILY LEE Stop: 12/15/23 08:59 Last Admin: 11/15/23 08:23 Dose: 25 mg Documented By: JOSE Discontinued Medications Apixaban (Apixaban 5 Mg Tablet) 5 mg PO NOW STA Stop: 11/15/23 02:20 Last Admin: 11/15/23 03:52 Dose: 5 mg Documented By: MICHAEL Sodium Chloride (Nss) 500 mls @ 999 mls/hr IV .Q31M ONE Stop: 11/14/23 23:12 Last Infusion: 11/15/23 00:10 Dose: Infused Documented By: Admin: 11/14/23 22:54 Dose: 999 mls/hr Documented By: MESHA Piperacillin Sod/Tazobactam Sod (Zosyn) 4.5 gm in 100 mls @ 200 mls/hr IV NOW ONE Stop: 11/15/23 00:32 Last Infusion: 11/15/23 01:08 Dose: Infused Documented By: Admin: 11/15/23 00:28 Dose: 200 mls/hr Documented By: MICHAEL Metoprolol Succinate (Metoprolol Succ 25mg Ext Rel Tab) 25 mg PO NOW STA Stop: 11/15/23 02:20 Last Admin: 11/15/23 03:52 Dose: 25 mg Documented By: MICHAEL Tamsulosin HCl (Tamsulosin Hcl 0.4 Mg Cap) 0.4 mg PO NOW ONE Stop: 11/15/23 02:20 Last Admin: 11/15/23 03:52 Dose: 0.4 mg Documented By: MICHAEL Discharge Plan Visit Data Chief Complaint: Illness Stated Complaint: ILLNESS, NAUSEA, HOT FLASHS ED Provider: Katelynn Pacheco Discharge Problem: Acute UTI, Weakness Patient Disposition: Admitted As Inpatient Discharge Instructions Interventions: ED Discharge Assessment Last Done: 11/15/23 04:32
[2023-11-15] MEDS: PIPERACILLIN/TAZOBACTAM 4.5 GM/100 ML BAG IV ONE (00:28)
[2023-11-15] MEDS: METOPROLOL SUCC 25MG EXT REL TAB PO STA (03:52)
[2023-11-15] MEDS: APIXABAN 5 MG TABLET PO STA (03:52)
[2023-11-15] MEDS: TAMSULOSIN HCL 0.4 MG CAP PO ONE (03:52)
[2023-11-15] MEDS ORDERED: CARBOHYDRATES FOR HYPOGLYCEMIA PO PRN (05:12)
[2023-11-15] MEDS ORDERED: ACETAMINOPHEN 325 MG TAB PO PRN (05:12)
[2023-11-15] MEDS ORDERED: GLUCOSE 10 TAB/TUBE PO PRN (05:12)
[2023-11-15] MEDS ORDERED: DEXTROSE 50% 50 ML SYRINGE IV PRN (05:12)
[2023-11-15] MEDS ORDERED: GLUCAGON FOR INJ 1 MG VIAL SQ PRN (05:12)
[2023-11-15] MEDS ORDERED: GLUCOSE 40% GEL 15 GM TUBE PO PRN (05:12)
[2023-11-15] MEDS ORDERED: ONDANSETRON INJ 2 MG/ML 2 ML VIAL IV PRN (05:12)
[2023-11-15] MEDS ORDERED: traZODone HCL 50 MG TAB PO PRN (05:35)
--- NOTE | 2023-11-15 05:37 | History & Physical Report ---
Date of Service November 15, 2023 Assessment & Plan (1) UTI (urinary tract infection): Plan: 78yo male presenting with acute onset fever, shaking, weakness and nausea. Some urinary complaints. Has history of Pseudomonas UTIs with similar presentation in the past Afebrile, HD stable and non-toxic in appearance at present -Observation to medical -Follow cultures -Empiric Zosyn -Tylenol PRN Plan Diabetes -Lantus 18y qHS -ISS PAF -Continue Metoprolol -Continue Apixaban Hypertension -Continue Lisinopril -Continue Metoprolol Admission and Anticipated Discharge Date Admission Date: November 15, 2023 History of Present Illness Chief Complaint: fever, weakness Primary Care Provider: Elizabeth Chilel MD Rafael Santos is a 78yo male with history of DM, HTN, HLP, BPH and history of Pseudomonas UTIs presenting with acute onset fever/chills/weakness and shakes. Patient with no additional complaints - had been in his usual state of health with exception of his blood pressure being higher than usual. At 21:00 this evening he had acute onset of hot flash, fever, weakness, nausea and shaking. He has had some increased urinary frequency and mild dysuria. No report of cough, SOB, abdominal pain, nausea, vomiting, diarrhea In the ER patient is afebrile, hypertensive otherwise HD stable Allergies Allergy/AdvReac Type Severity Reaction Status Date / Time ciprofloxacin [From Cipro] AdvReac Intermediate Upset Verified 08/11/23 14:07 Stomach, Nausea, GI Discomfort Home Medications Medication Instructions Recorded Confirmed Type apixaban 5 mg tablet 5 mg PO BID 04/25/21 08/11/23 History cholecalciferol (vitamin D3) 25 25 mcg PO QAM 04/25/21 08/11/23 History mcg (1,000 unit) capsule folic acid 1 mg tablet 1 mg PO QAM 04/25/21 08/11/23 History levothyroxine 88 mcg capsule 88 mcg PO DAILYBB 04/25/21 08/11/23 History ferrous sulfate 325 mg (65 mg 325 mg PO QAM 06/30/21 08/11/23 History iron) tablet (FeroSul) gabapentin 100 mg capsule 100 mg PO QID PRN Nerve Pain 06/30/21 08/11/23 History trazodone 50 mg tablet 50 mg PO HS PRN Sleep 06/30/21 08/11/23 History lisinopril 5 mg tablet 5 mg PO DAILY #90 tabs 01/08/22 08/11/23 Rx tamsulosin 0.4 mg capsule 0.4 mg PO HS #30 caps 02/18/22 08/11/23 Rx phenol 1.4 % mucosal aerosol spray 2 spray mucous membrane Q4H PRN 02/19/22 08/11/23 Rx sore throat #20 mL insulin glargine 100 unit/mL (3 18 unit subcut ONCE 05/29/22 08/11/23 History mL) subcutaneous pen (Lantus Solostar U-100 Insulin) fluticasone propionate 50 1 spray intranasal BID PRN 08/06/23 08/11/23 History mcg/actuation nasal spray,suspension metoprolol succinate 25 mg 25 mg PO DAILY 08/06/23 08/11/23 History tablet,extended release 24 hr pantoprazole 40 mg tablet,delayed 40 mg PO DAILY PRN 08/06/23 08/11/23 History release empagliflozin 10 mg tablet 10 mg PO DAILY #90 tabs 08/11/23 08/11/23 Rx (Jardiance) furosemide 20 mg tablet (Lasix) 20 mg PO DAILY #90 tabs 08/11/23 08/11/23 Rx Past Med/Surg History Problem List (Updated 11/15/23 @ 05:32 by Shwetha Barnett DO) UTI (urinary tract infection) 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 [place] Bilateral leg edema Vitamin D deficiency 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 Morbid obesity with BMI of 45.0-49.9, adult Chronic kidney disease, stage 4 (severe) Hypothyroidism (Acute) Paroxysmal atrial fibrillation 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) Hyperlipidemia Essential hypertension BPH w/o urinary obs/LUTS Age-related nuclear cataract, right eye Surgical History H/O skin graft History of arthroplasty of right ankle has 6 pins in it, had a Fx No significant past surgical history Family History Grandfather (Maternal) Diabetes Grandfather (Paternal) Arteriosclerosis Mother Hypertension Father Stomach ulcer Denies family history of Ovarian cancer Prostate cancer Breast cancer Lung cancer Colorectal cancer Social History Smoking Status: Never smoker Do You Dip or Chew Tobacco: No; Hx Alcohol Use: No Hx Substance Use: No Preferred Language: Monegasque 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 Beliefs That Will Affect Care: None marital status: Unknown Current Living Situation: Alone Current Living Situation Comment: lives alone is a studio apartment with 2 JERED Feels Safe at Home: Yes Dental Care, Regularly: No Physical Activity Frequency: Does not Exercise Seatbelt Use: always Sunscreen Use: No Do you think of yourself as: straight/heterosexual Gender Identity: Male Assistive Devices: Cane, CPAP, Glasses, Hearing Aid - Bilateral and Oxygen - at Night Review of Systems Review of Systems: All systems reviewed & are unremarkable except as noted in HPI & below Physical Exam Physical Exam: General: patient resting comfortably, NAD, non-toxic in appearance, AA&O x 4 Skin: warm, dry, intact, no rashes or lesions HEENT: NC/AT, PERRL, EOMI, anicteric sclera, conjunctiva without injection, external ear normal to inspection and nontender, nares patent, moist mucus membranes, dentition intact, no oropharyngeal lesions, neck supple, trachea midline, no LAD, no thyromegaly, no JVD Heart: +S1/S2, regular, no m/r/g Lungs: equal air entry bilaterally, no rales/rhonchi/wheezes Abd: +BS, soft, NT/ND, no masses/organomegaly/ascites Ext: warm, 2+ pulses in UE/LE bilaterally, no clubbing/cyanosis or edema Neuro: nonfocal, patient AA&O x 4, speech intact, no facial droop, moving all extremities on command with equal strength 5/5 Results & Data Results & Data Vital Signs (Past 12 Hours) Vital Signs Temp Pulse Pulse Resp BP BP Pulse Ox 11/15/23 04:27 71 14 100 11/15/23 04:12 71 15 99 11/15/23 04:00 76 15 99 11/15/23 04:00 170/80 H 11/15/23 04:00 170/80 H 11/15/23 04:00 170/80 H 11/15/23 04:00 170/80 H 11/15/23 03:51 83 22 99 11/15/23 03:42 75 14 99 11/15/23 03:36 80 14 99 11/15/23 03:30 175/84 H 11/15/23 03:21 75 15 99 11/15/23 03:03 78 15 99 11/15/23 03:00 160/80 H 11/15/23 03:00 160/80 H 11/15/23 03:00 160/80 H 11/15/23 02:51 77 13 99 11/15/23 02:46 77 11/15/23 02:30 81 16 98 11/15/23 02:30 186/88 H 11/15/23 02:12 90 18 98 11/15/23 02:00 80 15 98 11/15/23 02:00 169/106 H 11/15/23 02:00 169/106 H 11/15/23 01:51 83 14 98 11/15/23 01:30 186/85 H 11/15/23 01:30 186/85 H 11/15/23 01:12 85 17 100 11/15/23 01:09 79 15 98 11/15/23 00:57 84 17 100 11/15/23 00:42 84 20 99 11/15/23 00:33 83 23 98 11/15/23 00:31 189/77 H 11/15/23 00:31 189/77 H 11/15/23 00:21 84 17 99 11/15/23 00:12 82 16 100 11/15/23 00:09 81 13 99 11/14/23 23:51 83 17 99 11/14/23 23:45 84 16 100 11/14/23 23:30 78 16 100 11/14/23 23:27 76 13 97 11/14/23 23:06 84 18 96 11/14/23 23:02 82 204/81 H 11/14/23 23:01 204/81 H 11/14/23 23:01 204/81 H 11/14/23 22:57 79 18 92 11/14/23 22:54 82 15 95 11/14/23 22:43 91 11/14/23 22:42 83 17 93 11/14/23 22:42 91 11/14/23 22:30 82 21 96 11/14/23 22:29 82 11/14/23 22:27 216/85 H 11/14/23 22:27 216/85 H 11/14/23 22:24 204/91 H 11/14/23 22:13 36.6 C 80 19 216/85 H 96 11/14/23 22:10 36.6 C 86 17 216/85 H 98 O2 Del Method O2 Flow Rate 11/15/23 04:27 11/15/23 04:12 11/15/23 04:00 11/15/23 04:00 11/15/23 04:00 11/15/23 04:00 11/15/23 04:00 11/15/23 03:51 11/15/23 03:42 11/15/23 03:36 Nasal Cannula 2 11/15/23 03:30 11/15/23 03:21 Nasal Cannula 2 11/15/23 03:03 11/15/23 03:00 11/15/23 03:00 11/15/23 03:00 11/15/23 02:51 11/15/23 02:46 11/15/23 02:30 11/15/23 02:30 11/15/23 02:12 11/15/23 02:00 11/15/23 02:00 11/15/23 02:00 11/15/23 01:51 11/15/23 01:30 11/15/23 01:30 11/15/23 01:12 Room Air 11/15/23 01:09 11/15/23 00:57 11/15/23 00:42 11/15/23 00:33 11/15/23 00:31 11/15/23 00:31 11/15/23 00:21 11/15/23 00:12 11/15/23 00:09 11/14/23 23:51 11/14/23 23:45 11/14/23 23:30 11/14/23 23:27 11/14/23 23:06 11/14/23 23:02 11/14/23 23:01 11/14/23 23:01 11/14/23 22:57 11/14/23 22:54 11/14/23 22:43 Room Air 11/14/23 22:42 11/14/23 22:42 Room Air 11/14/23 22:30 11/14/23 22:29 11/14/23 22:27 11/14/23 22:27 11/14/23 22:24 11/14/23 22:13 Room Air 11/14/23 22:10 Room Air Laboratory Results Laboratory Results WBC 9.85 K/ul (4.8-10.8) 11/14/23 22:27 RBC 4.26 M/uL (4.70-6.10) L 11/14/23 22:27 Hgb 12.3 g/dl (14.0-18.0) L 11/14/23 22:27 Hct 40.3 % (42.0-52.0) L 11/14/23 22: MCV 94.6 fL (80.0-100.0) 11/14/23 22: MCH 28.9 pg (25.0-34.0) 11/14/23 22: MCHC 30.5 g/dL (32.0-36.0) L 11/14/23 22: RDW Std Deviation 56.3 fL (36.4-46.3) H 11/14/23 22: RDW Coeff of Yolanda 16.3 % (11.5-14.5) H 11/14/23 22: Plt Count 265 K/uL (130-400) 11/14/23: MPV 10.3 fL (9.4-12.4) 11/14/23 22: Immature Gran % (Auto) 0.5 % 11/14/23: Neut % (Auto) 81.2 % 11/14/23 22: Lymph % (Auto) 9.7 % 11/14/23 22:27 [place] % (Auto) 6.6 % 11/14/23 22:27 Eos % (Auto) 1.7 % 11/14/23 22: Baso % (Auto) 0.3 % 11/14/23: Neut # (Auto) 7.99 K/uL (1.40-6.50) H 11/14/23 22: Lymph # (Auto) 0.96 K/uL (1.20-3.40) L 11/14/23 22:27 [place] # (Auto) 0.65 K/uL (0.11-0.59) H 11/14/23 22:27 Eos # (Auto) 0.17 K/uL (0.00-0.50) 11/14/23 22:27 Baso # (Auto) 0.03 K/uL (0.00-0.20) 11/14/23 22: Immature Gran # (Auto) 0.05 K/uL (0.01-0.20) 11/14/23 22: PT 10.9 Seconds (9.0-12.0) 11/14/23 22: INR 1.0 (0.9-1.1) 11/14/23 22: APTT 29 Seconds (21-31) 11/14/23 22: PTT Ratio 1.1 11/14/23 22: Sodium 142 mmol/L (136-145) 11/14/23 22: Potassium 4.1 mmol/L (3.5-5.1) 11/14/23 22: Chloride 108 mmol/L (98-107) H 11/14/23 22:27 Carbon Dioxide 26 mmol/L (21-32) 11/14/23 22: Anion Gap 8 (3-11) 11/14/23 22:27 BUN 27 mg/dl (6-23) H 11/14/23 22: Creatinine 2.10 mg/dl (0.6-1.4) H 11/14/23 22: Est Cr Clr Drug Dosing 41.6 ml/min 11/14/23 22: Est GFR ( Amer) 33.9 ml/min 11/14/23 22: Est GFR (Non-Af Amer) 29.3 ml/min 11/14/23 22: BUN/Creatinine Ratio 12.9 (10-20) 11/14/23 22:27 Glucose 122 mg/dl (70-99(Fasting)) H 11/14/23 22:27 POC Glucose 130 mg/dl (70-99) H 11/15/23 05:01 Lactate 1.3 mmol/L (0.4-2.0) 11/15/23 00:18 Calcium 9.4 mg/dl (8.6-10.3) 11/14/23 22: Magnesium 2.2 mg/dl (1.7-2.4) 11/14/23 22:27 Total Bilirubin 0.5 mg/dl (0.2-1.0) 11/14/23 22:27 AST 14 U/L (13-39) 11/14/23 22:27 ALT 10 U/L (7-52) 11/14/23 22:27 Alkaline Phosphatase 57 U/L (34-104) 11/14/23 22:27 Troponin I High Sens 7.7 pg/ml (0-20) 11/14/23 22: Total Protein 8.0 gm/dl (6.0-8.3) 11/14/23 22:27 Albumin 3.8 gm/dl (3.4-5.0) 11/14/23 22: Globulin 4.2 gm/dl (2.5-4.0) H 11/14/23 22:27 Albumin/Globulin Ratio 0.9 (0.9-2) 11/14/23 22: Procalcitonin 0.10 ng/ml (0-0.5) 11/15/23 00:18 Urine Color Yellow 11/14/23 22:55 Urine Appearance Cloudy (Clear) A 11/14/23 22:55 Urine pH 7.0 (4.5-7.5) 11/14/23 22:55 Ur Specific [place] 1.012 (1.000-1.030) 11/14/23 22:55 Urine Protein 1+ (Negative) H 11/14/23 22:55 Urine Glucose (UA) Negative (Negative) 11/14/23 22:55 Urine Ketones Negative (Negative) 11/14/23 22:55 Urine Blood 1+ (Negative) H 11/14/23 22:55 Urine Nitrite Positive (Negative) A 11/14/23 22:55 Urine Bilirubin Negative (Negative) 11/14/23 22:55 Urine Urobilinogen Negative (Negative) 11/14/23 22:55 Ur Leukocyte Esterase 3+ (Negative) H 11/14/23 22:55 Urine WBC (Auto) >50 /hpf (0-5) H 11/14/23 22:55 Urine RBC (Auto) 11-20 /hpf (0-2) H 11/14/23 22:55 U Hyaline Cast (Auto) 0-2 /lpf (0-2) 11/14/23 22:55 U Epithel Cells (Auto) 0-2 /hpf (0-2) 11/14/23 22:55 Urine Bacteria (Auto) 4+ (None Seen) H 11/14/23 22:55 Urine Sperm Present (None Prsent) A 11/14/23 22:55 PG Care Time/CCT Total # of Minutes Spent Total Time Spent with Patient: Total time spent is greater than 50% in coordination of care (as documented) at patient's floor/unit and/or counseling patient: Coding Level of Care Code 98462 INT INP/OBS CARE 55MIN Diagnoses UTI (urinary tract infection) N39.0
[2023-11-15] MEDS: PIPERACILLIN/TAZOBACTAM 4.5 GM in DEXTROSE 5% MINI-B 100 ML IV SCH (06:18)
--- NOTE | 2023-11-15 07:22 | Electrocardiogram Report ---
Test Reason : Blood Pressure : / mmHG Vent. Rate : 086 BPM Atrial Rate : 086 BPM P-R Int : 144 ms QRS Dur : 104 ms QT Int : 386 ms P-R-T Axes : -23 -33 070 degrees QTc Int : 461 ms Sinus rhythm with occasional Premature ventricular complexes 1st degree AV block Left axis deviation Incomplete right bundle branch block Abnormal ECG When compared with ECG of 06-JAN-2023 05:04, Sinus rhythm has replaced Atrial flutter Left anterior fascicular block is no longer Present Criteria for Lateral infarct are no longer Present Minimal criteria for Inferior infarct are no longer Present ST no longer depressed in Inferior leads Confirmed by Onofre Christiansen ([id number]) on 11/15/2023 7:21:55 AM Referred By: REFERRED SELF Confirmed By:Kamaljit Christiansen
[2023-11-15] MEDS: LEVOTHYROXINE SODIUM 88 MCG TABLET PO SCH (07:24)
[2023-11-15] MEDS: lisinopril 5 MG TAB PO SCH (08:22)
[2023-11-15] MEDS: METOPROLOL SUCC 25MG EXT REL TAB PO SCH (08:23)
[2023-11-15] MEDS: INSULIN ASPART PER UNIT CHARGE SC SCH (08:25)
[2023-11-15] MEDS: FUROSEMIDE 20 MG TAB PO SCH (10:16)
--- NOTE | 2023-11-15 11:31 | Hospitalist Progress Note ---
Date of Service November 15, 2023 Assessment & Plan (1) UTI (urinary tract infection): Plan: 78yo male presenting with acute onset fever, shaking, weakness and nausea. Some urinary complaints. Has history of Pseudomonas UTIs with similar presentation in the past Afebrile, HD stable and non-toxic in appearance at present -Observation to medical -Follow cultures -Empiric Zosyn -Tylenol PRN Plan Diabetes -Lantus 18y qHS -ISS PAF -Continue Metoprolol -Continue Apixaban Hypertension -Continue Lisinopril -Continue Metoprolol Admission and Anticipated Discharge Date Admission Date: November 15, 2023 Results & Data Results & Data Vital Signs (Past 12 Hours) Vital Signs Temp Pulse Pulse Pulse Resp BP BP 11/15/23 08:11 36.4 C 82 16 158/77 H 11/15/23 05:00 36.6 C 83 16 166/70 H 11/15/23 05:00 11/15/23 04:27 71 14 11/15/23 04:12 71 15 11/15/23 04:00 76 15 11/15/23 04:00 170/80 H 11/15/23 04:00 170/80 H 11/15/23 04:00 170/80 H 11/15/23 04:00 170/80 H 11/15/23 03:51 83 22 11/15/23 03:42 75 14 11/15/23 03:36 80 14 11/15/23 03:30 175/84 H 11/15/23 03:21 75 15 11/15/23 03:03 78 15 11/15/23 03:00 160/80 H 11/15/23 03:00 160/80 H 11/15/23 03:00 160/80 H 11/15/23 02:51 77 13 11/15/23 02:46 77 11/15/23 02:30 81 16 11/15/23 02:30 186/88 H 11/15/23 02:12 90 18 11/15/23 02:00 80 15 11/15/23 02:00 169/106 H 11/15/23 02:00 169/106 H 11/15/23 01:51 83 14 11/15/23 01:30 186/85 H 11/15/23 01:30 186/85 H 11/15/23 01:12 85 17 11/15/23 01:09 79 15 11/15/23 00:57 84 17 11/15/23 00:42 84 20 11/15/23 00:33 83 23 11/15/23 00:31 189/77 H 11/15/23 00:31 189/77 H 11/15/23 00:21 84 17 11/15/23 00:12 82 16 11/15/23 00:09 81 13 11/14/23 23:51 83 17 11/14/23 23:45 84 16 Pulse Ox O2 Del Method O2 Flow Rate 11/15/23 08:11 97 Room Air 11/15/23 05:00 95 Room Air 11/15/23 05:00 Nasal Cannula 2 11/15/23 04:27 100 11/15/23 04:12 99 11/15/23 04:00 99 11/15/23 04:00 11/15/23 04:00 11/15/23 04:00 11/15/23 04:00 11/15/23 03:51 99 11/15/23 03:42 99 11/15/23 03:36 99 Nasal Cannula 2 11/15/23 03:30 11/15/23 03:21 99 Nasal Cannula 2 11/15/23 03:03 99 11/15/23 03:00 11/15/23 03:00 11/15/23 03:00 11/15/23 02:51 99 11/15/23 02:46 11/15/23 02:30 98 11/15/23 02:30 11/15/23 02:12 98 11/15/23 02:00 98 11/15/23 02:00 11/15/23 02:00 11/15/23 01:51 98 11/15/23 01:30 11/15/23 01:30 11/15/23 01:12 100 Room Air 11/15/23 01:09 98 11/15/23 00:57 100 11/15/23 00:42 99 11/15/23 00:33 98 11/15/23 00:31 11/15/23 00:31 11/15/23 00:21 99 11/15/23 00:12 100 11/15/23 00:09 99 11/14/23 23:51 99 08/04/24 23:45 100 PG Care Time/CCT Total # of Minutes Spent Total Time Spent with Patient: Total time spent is greater than 50% in coordination of care (as documented) at patient's floor/unit and/or counseling patient: Coding Diagnoses UTI (urinary tract infection) N39.0
[2023-11-15] MEDS: APIXABAN 5 MG TABLET PO SCH (11:51)
--- NOTE | 2023-11-15 15:58 | Communication Note ---
Date of Service: November 15, 2023 (1) UTI (urinary tract infection): 78yo male presenting with acute onset fever, shaking, weakness and nausea. Some urinary complaints. Has history of Pseudomonas UTIs with similar presentation in the past -Observation to medical -urine cultures pending, once back patient can likely be discharged home on PO abx. -Empiric Zosyn -Tylenol PRN Chronic conditions: Diabetes -Lantus 18y qHS -ISS PAF -Continue Metoprolol -Continue Apixaban Hypertension -Continue Lisinopril -Continue Metoprolol
[2023-11-15] MEDS: LANTUS PER UNIT CHARGE SQ SCH (21:17)
[2023-11-15] MEDS: TAMSULOSIN HCL 0.4 MG CAP PO SCH (21:18)
[2023-11-16 09:42] LABS: Hematocrit (blood only) 36.5 % (42.0-52.0); Hemoglobin 11.1 g/dl (14.0-18.0); Mean Corpuscular Hemoglobin 28.8 pg (25.0-34.0); Mean Corpuscular Hgb Conc 30.4 g/dL (32.0-36.0); Mean Corpuscular Volume 94.8 fL (80.0-100.0); Mean Platelet Volume 10.5 fL (9.4-12.4); Platelet Count 253 K/uL (130-400); RDW Coefficient of Variation 16.4 % (11.5-14.5); RDW Standard Deviation 57.1 fL (36.4-46.3); Red Blood Count 3.85 M/uL (4.70-6.10); White Blood Count 8.18 K/ul (4.8-10.8)
[2023-11-16 09:59] LABS: BUN Creatinine Ratio 11.8 (10-20); Calcium 9.1 mg/dl (8.6-10.3); Creatinine Clr Calc Pharmacy 39.5 ml/min; Est GFR (African American) 32.1 ml/min; Est GFR (Non-African American) 27.7 ml/min; Potassium 4.7 mmol/L (3.5-5.1)
--- NOTE | 2023-11-16 14:54 | Hospitalist Progress Note ---
Date of Service November 16, 2023 Assessment & Plan (1) Acute UTI: Plan: 8yo male presenting with acute onset fever, shaking, weakness and nausea. Some urinary complaints. Has history of Pseudomonas UTIs with similar presentation in the past -Empiric Zosyn -Tylenol PRN -reviewed CBC and BMP 11/15: hgb 11.1, WBC 8.18, creatinine 2.20 BUN 26 (baseline creatinine around 2-2.3) -prelim urine culture growing gram negative bacilli, awaiting sensitivities for proper PO coverage. Plan Chronic conditions: Diabetes -Lantus 18y qHS, ISS PAF -Continue Metoprolol and Apixaban Hypertension- Continue Lisinopril and Metoprolol Diet: regular (patient requested. was originally on carb consistent) Code status: full DVT prophylaxis: cesarquis Disposition: discharge home 11/16 following sensitivity report Called and updated daughter 11/15 Admission and Anticipated Discharge Date Admission Date: November 15, 2023 Subjective Patient seen and examined this morning. Patient reports to be feeling well today. He denies any burning with urination and notes improvement in his urinary frequency. He denies any additional complaints. Physical Exam 2 Constitutional: WD/WN, vitals as above Eyes: PERRL, conjunctivae normal, anicteric sclerae Respiratory: normal respiratory effort, lungs clear to auscultation Cardiovascular: RRR, no murmur, no edema Gastrointestinal (Abdomen): normal bowel sounds, soft, nontender, no hepatosplenomegaly Skin: no rashes, warm and dry Psychiatric: A+Ox3, euthymic affect Results & Data Results & Data Vital Signs (Past 12 Hours) Vital Signs Temp Pulse Resp BP Pulse Ox O2 Del Method O2 Flow Rate 11/16/23 08:24 62 11/16/23 07:23 36.5 C 58 L 16 154/78 H 97 Nasal Cannula 2 Laboratory Results 11/16/23 07:43 11/16/23 07:43 PG Care Time/CCT Total # of Minutes Spent Total Time Spent with Patient: Total time spent is greater than 50% in coordination of care (as documented) at patient's floor/unit and/or counseling patient: Coding Level of Care Code 32991 SUB INP/OBS CARE 3/50MIN Diagnoses Acute UTI N39.0
[2023-11-16 20:17] VITALS: O2SAT 97
[2023-11-17 07:13] LABS: Hematocrit (blood only) 37.3 % (42.0-52.0); Hemoglobin 11.4 g/dl (14.0-18.0); Mean Corpuscular Hemoglobin 28.9 pg (25.0-34.0); Mean Corpuscular Hgb Conc 30.6 g/dL (32.0-36.0); Mean Corpuscular Volume 94.7 fL (80.0-100.0); Mean Platelet Volume 10.3 fL (9.4-12.4); Platelet Count 258 K/uL (130-400); RDW Coefficient of Variation 16.2 % (11.5-14.5); RDW Standard Deviation 56.5 fL (36.4-46.3); Red Blood Count 3.94 M/uL (4.70-6.10); White Blood Count 8.72 K/ul (4.8-10.8)
[2023-11-17 07:32] LABS: BUN Creatinine Ratio 10.6 (10-20); Calcium 8.9 mg/dl (8.6-10.3); Creatinine Clr Calc Pharmacy 35.5 ml/min; Est GFR (African American) 28.2 ml/min; Est GFR (Non-African American) 24.3 ml/min; Potassium 4.5 mmol/L (3.5-5.1)
[2023-11-17 07:42] VITALS: BP 139/73; PULSE 66; RESP 20; TEMP 97.5
--- NOTE | 2023-11-17 10:12 | Discharge Summary ---
Discharge Summary Date of Service November 17, 2023 Principal Dx & Hospital Course #1 = Principal Diagnosis (1) Acute UTI: 8yo male presenting with acute onset fever, shaking, weakness and nausea. Some urinary complaints. Has history of Pseudomonas UTIs with similar presentation in the past. Patient treated empirically with Zosyn until cultures returned. Urine cultures + for pseudomonas and he was started on Levofloxacin. First dose was today in the hospital and he will have an additional 4 days outpatient. day of discharge CBC revealed normal WBC. Plan Chronic kidney disease, stage 4 - repeat BMP in 1 week and discuss with PCP at upcoming appt. Morbid Obesity with BMI 45.2 Chronic conditions: Diabetes -Lantus 18y qHS, ISS PAF -Continue Metoprolol and Apixaban Hypertension- Continue Lisinopril and Metoprolol Admission HPI Per Admitting Provider Rafael Santos is a 78yo male with history of DM, HTN, HLP, BPH and history of Pseudomonas UTIs presenting with acute onset fever/chills/weakness and shakes. Patient with no additional complaints - had been in his usual state of health with exception of his blood pressure being higher than usual. At 21:00 this evening he had acute onset of hot flash, fever, weakness, nausea and shaking. He has had some increased urinary frequency and mild dysuria. No report of cough, SOB, abdominal pain, nausea, vomiting, diarrhea In the ER patient is afebrile, hypertensive otherwise HD stable Discharge Exam Constitutional WD/WN, vitals as above Eyes PERRL, conjunctivae normal, anicteric sclerae Respiratory normal respiratory effort, lungs clear to auscultation Cardiovascular RRR, no murmur, no edema Gastrointestinal (Abdomen) normal bowel sounds, soft, nontender, no hepatosplenomegaly Skin no rashes, warm and dry Psychiatric A+Ox3, euthymic affect Updated Medication List Medication Instructions Recorded Confirmed Type apixaban 5 mg tablet 5 mg PO BID 04/25/21 11/17/23 History cholecalciferol (vitamin D3) 25 25 mcg PO QAM 04/25/21 11/17/23 History mcg (1,000 unit) capsule folic acid 1 mg tablet 1 mg PO QAM 04/25/21 11/17/23 History levothyroxine 88 mcg capsule 88 mcg PO DAILYBB 04/25/21 11/17/23 History ferrous sulfate 325 mg (65 mg 325 mg PO QAM 06/30/21 11/17/23 History iron) tablet (FeroSul) gabapentin 100 mg capsule 100 mg PO QID PRN Nerve Pain 06/30/21 11/17/23 History trazodone 50 mg tablet 50 mg PO HS PRN Sleep 06/30/21 11/17/23 History lisinopril 5 mg tablet 5 mg PO DAILY #90 tabs 01/08/22 11/17/23 Rx tamsulosin 0.4 mg capsule 0.4 mg PO HS #30 caps 02/18/22 11/17/23 Rx phenol 1.4 % mucosal aerosol spray 2 spray mucous membrane Q4H PRN 02/19/22 11/17/23 Rx sore throat #20 mL insulin glargine 100 unit/mL (3 18 unit subcut HS 05/29/22 11/17/23 History mL) subcutaneous pen (Lantus Solostar U-100 Insulin) fluticasone propionate 50 1 spray intranasal BID PRN 08/06/23 11/17/23 History mcg/actuation nasal Congestion spray,suspension metoprolol succinate 25 mg 25 mg PO DAILY 08/06/23 11/17/23 History tablet,extended release 24 hr pantoprazole 40 mg tablet,delayed 40 mg PO DAILY PRN Acid Reflux 08/06/23 11/17/23 History release furosemide 20 mg tablet (Lasix) 20 mg PO DAILY #90 tabs 08/11/23 11/17/23 Rx ascorbic acid (vitamin C) 500 mg 500 mg PO DAILY 11/17/23 11/17/23 History tablet (Vitamin C) levofloxacin 250 mg tablet 250 mg PO DAILY #4 tabs 11/17/23 Rx Hospital Stay Data Consultations 11/15/23 01:15 ED Decision to Admit Stat Pending Results Patient Have Any Pending Studies at Discharge: No Discharge Instructions Given to Patient (Per Discharging Provider) Mr. Santos, You were recently hospitalized for a urinary tract infection. Please see recommendations below regarding discharge. 1. Please take Levofloxacin once daily for 5 days. Your first dose will be given to you today at the hospital. -Your next dose will be tomorrow 11/17. -Please take with food to avoid GI upset 2. Please obtain lab work on 11/22 to reassess kidney function. 3. Please resume previous outpatient medications. 4. Please monitor your blood pressure at home over the next week so you can discuss readings with your PCP. [facility] If you develop any urinary burning, frequency, urgency please contact your PCP or report back to the ER. Sincerely, Genny Liz PA-C Total Time Total Time Spent Total Time Spent (In Minutes): 41 Total Time Includes: Examination of the Patient, Discharge Planning and Medication Reconciliation Coding Level of Care Code 85525 INP/OBS DISCH >30 MIN Diagnoses Acute UTI N39.0
[2023-11-17] MEDS: levoFLOXacin 500 MG TAB PO STA (11:33)
== END 2023-11-17 14:19 | disposition home or self-care (01) | DRG 690 ==
LOC: 3W 22:19 → ED 22:19 → SUATTDRO 11-15 02:24 → 3W 11-15 04:32

== ENCOUNTER 2024-03-17 07:14 | Inpatient (IN) ==
[2024-03-17 07:43] LABS: Basophils # (auto) 0.04 K/uL (0.00-0.20); Basophils % (auto) 0.4 %; Eosinophils # (auto) 0.21 K/uL (0.00-0.50); Eosinophils % (auto) 2.4 %; Hematocrit (blood only) 40.8 % (42.0-52.0); Hemoglobin 12.7 g/dl (14.0-18.0); Immature Granulocytes # (auto) 0.05 K/uL (0.01-0.20); Immature Granulocytes % (auto) 0.6 %; Lymphocytes # (auto) 1.12 K/uL (1.20-3.40); Lymphocytes % (auto) 12.6 %; Mean Corpuscular Hemoglobin 29.3 pg (25.0-34.0); Mean Corpuscular Hgb Conc 31.1 g/dL (32.0-36.0); Mean Platelet Volume 10.1 fL (9.4-12.4); Monocytes # (auto) 0.47 K/uL (0.11-0.59); Monocytes % (auto) 5.3 %; Neutrophils # (auto) 7.02 K/uL (1.40-6.50); Neutrophils % (auto) 78.7 %; Platelet Count 270 K/uL (130-400); RDW Coefficient of Variation 15.7 % (11.5-14.5); RDW Standard Deviation 54.3 fL (36.4-46.3); Red Blood Count 4.34 M/uL (4.70-6.10); White Blood Count 8.91 K/ul (4.8-10.8)
--- NOTE | 2024-03-17 07:44 | Emergency Department Note ---
Impression & Plan Generalized weakness, Nausea, Chronic kidney disease, stage 4 (severe), Essential hypertension, Acute UTI (urinary tract infection) ED Provider Note ED Provider Note NAME: DOMITILA BAUM AGE:78 SEX: Male : 1945 ARRIVES VIA: EMS INFORMANT: Patient ED PROVIDER(s): Coco Morrissey DO CHIEF COMPLAINT: Weakness, nausea HPI: This is a 78-year-old male who presents emerged department due to concern for generalized weakness and nausea that began overnight. He states symptoms are similar to prior episodes of UTI. He states he felt well yesterday during the day and the seem to hit him more abruptly. He denies any overt vomiting, no change in urine or stools. He denies fevers, chills, abdominal pain. He states his lisinopril was recently increased from 5 mg to 10 mg approximately 3 weeks ago and he is felt well on that. No other known sick contacts. He states he was recently evaluated for gallstones that were found on imaging. There is no plan yet at this time for surgery. He states he does have chronic sinus drainage secondary to sinus surgery in the . No other overt cough or cold symptoms. He denies chest pain and difficulty breathing. PAST MEDICAL HISTORY:See Below PAST SURGICAL HISTORY:See Below FAMILY HISTORY:See Below SOCIAL HISTORY:See Below HOME MEDICATIONS:See Below ALLERGIES:See Below VITALS:See Below PHYSICAL EXAMINATION: GENERAL: alert, well appearing, well nourished, no distress, non-toxic EYE EXAM: normal conjunctiva, PERRL and EOM's grossly intact OROPHARYNX: no exudate, no erythema, lips, buccal mucosa, and tongue normal and mucous membranes are moist NECK: supple, no nuchal rigidity, no adenopathy, non-tender LUNGS: Clear to auscultation. Normal chest wall mechanics, no w/r/r HEART: no murmurs, S1 normal and S2 normal ABDOMEN: abdomen soft, non-tender, normo-active bowel sounds, no masses, no rebound or guarding. BACK: Back is symmetrical on inspection and there is no deformity, no midline tenderness, no CVA tenderness. SKIN: no rashes, petechiae, orbruising UPPER EXTREMITIES: upper extremities are grossly normal. FROM, nml pulses b/l. LOWER EXTREMITIES: No pitting edema. FROM, nml pulses b/l. NEURO EXAM: Normal sensorium, cranial nerves II-XII grossly intact, normal speech, no facial droop,nogross weakness of arms, no gross weakness of legs. Gross sensation intact. No ataxia. Vital Signs: reviewed and remarkable Differential Diagnosis: UTI, pneumonia, dehydration, BRETT, medication ADR, hypertensive urgency, hypertensive emergency, ACS, dysrhythmia, bowel obstruction, viral syndrome, CHF, as well as others were considered MEDICAL DECISION MAKING: This is a 78-year-old male presents emergency department due to concern for weakness and nausea that he feels are similar symptoms to when he develops urinary tract infection. Labs drawn and sent, IV established, EKG and chest x- ray performed at bedside interpreted by me and patient monitored on telemetry. Patient given gentle IV fluids as he did appear clinically dehydrated as well as IV Zofran for nausea. Urine ultimately collected and was suggestive of infection. After review of prior urine cultures patient started on IV antibiotics here. Patient's creatinine was noted to be slightly worse compared to prior. He had no worsening abdominal pain or back pain to suggest other obstructive process. Patient did report nausea was improved following medication although still felt very weak and fatigued. Patient noted to be very hypertensive on arrival which did slightly improve. Patient given his usual morning medications for blood pressure then which she had not yet taken and did have further improvement. He remained persistently hypertensive though which she does have a history of previously. No evidence of acute viral URI. Given complicated past medical history and evolving infection with systemic symptoms, case discussed with the hospitalist team for additional evaluation and management. Consultation(s): 1122: [facility], for additional evaluation and management. ER Treatment Provided: See below Diagnostics Interpreted By Me: -ECG: Normal sinus at 88, first-degree AV block, leftward axis, normal intervals, nonspecific ST/T wave changes -Cardiac Monitoring: An order was placed for continuous cardiac monitoring. The monitor shows a rate of 92 with normal sinus rhythm. -Laboratory studies: As stated above and show below. -Imaging studies: cxr: Mild cardiomegaly, no wide mediastinum, haziness noted in the left lower lobe however similar to prior, no other new pleural effusions or overt pulmonary edema Triage Nursing Note Reviewed Prior/Outside Records Reviewed Past Med/Surg History Problem List (Updated 03/17/24 @ 15:09 by Coco Morrissey, DO) Acute UTI (urinary tract infection) (Acute) Sleep apnea Nausea (Acute) Generalized weakness (Acute) Cholelithiasis Hypertension Diabetes Weakness (Acute) Acute UTI (Acute) UTI (urinary tract infection) 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 [place] Bilateral leg edema Vitamin D deficiency 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 Morbid obesity with BMI of 45.0-49.9, adult Chronic kidney disease, stage 4 (severe) (Acute) Hypothyroidism (Acute) Paroxysmal atrial fibrillation 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) Hyperlipidemia Essential hypertension (Acute) BPH w/o urinary obs/LUTS Age-related nuclear cataract, right eye Medical History Sleep apnea Surgical History H/O skin graft History of arthroplasty of right ankle No significant past surgical history Family History Grandfather (Maternal) Diabetes Grandfather (Paternal) Arteriosclerosis Stroke Mother Hypertension Father Stomach ulcer Denies family history of Ovarian cancer Prostate cancer Breast cancer Lung cancer Colorectal cancer Social History Smoking Status: Never smoker Second Hand Exposure: No; Do You Dip or Chew Tobacco: No; Hx Alcohol Use: No Hx Substance Use: No Preferred Language: American Communication Ability: Effective Wind Turbine Machinist Required: No Beliefs That Will Affect Care: None marital status: Unknown Current Living Situation: Alone Current Living Situation Comment: [facility] apartment Feels Safe at Home: Yes Diet: regular during the past year weight has: remained stable Dental Care, Regularly: No Physical Activity Frequency: Does not Exercise Seatbelt Use: always Sunscreen Use: No Do you think of yourself as: straight/heterosexual Gender Identity: Male Assistive Devices: CPAP, Glasses, Oxygen - at Night and Walker Allergies Allergies Allergy/AdvReac Type Severity Reaction Status Date / Time ciprofloxacin [From Cipro] AdvReac Intermediate Upset Verified 02/21/24 15:01 Stomach, Nausea, GI Discomfort oranges AdvReac Severe N/V/D Uncoded 02/21/24 15:01 Home Meds Home Medications Medication Instructions Recorded Confirmed apixaban 5 mg tablet 5 mg PO BID 04/25/21 03/17/24 cholecalciferol (vitamin D3) 25 25 mcg PO QAM 04/25/21 03/17/24 mcg (1,000 unit) capsule folic acid 1 mg tablet 1 mg PO QAM 04/25/21 03/17/24 levothyroxine 88 mcg capsule 88 mcg PO DAILYBB 04/25/21 03/17/24 ferrous sulfate 325 mg (65 mg 325 mg PO QAM 06/30/21 03/17/24 iron) tablet (FeroSul) gabapentin 100 mg capsule 100 mg PO QID PRN Nerve Pain 06/30/21 03/17/24 trazodone 50 mg tablet 50 mg PO HS PRN Sleep 06/30/21 03/17/24 insulin glargine 100 unit/mL (3 18 unit subcut HS 05/29/22 03/17/24 mL) subcutaneous pen (Lantus Solostar U-100 Insulin) fluticasone propionate 50 1 spray intranasal BID PRN 08/06/23 03/17/24 mcg/actuation nasal Congestion spray,suspension metoprolol succinate 25 mg 25 mg PO DAILY 08/06/23 03/17/24 tablet,extended release 24 hr pantoprazole 40 mg tablet,delayed 40 mg PO DAILY PRN Acid Reflux 08/06/23 03/17/24 release ascorbic acid (vitamin C) 500 mg 500 mg PO DAILY 11/17/23 03/17/24 tablet (Vitamin C) Previous Rx's Medication Instructions Recorded tamsulosin 0.4 mg capsule 0.4 mg PO HS #30 caps 02/18/22 phenol 1.4 % mucosal aerosol spray 2 spray mucous membrane Q4H PRN 02/19/22 sore throat #20 mL furosemide 20 mg tablet (Lasix) 20 mg PO DAILY #90 tabs 08/11/23 lisinopril 10 mg tablet 10 mg PO DAILY #30 tabs 02/21/24 Results & Data (ED) Vital Signs Vital Signs - 24 hr 03/17/24 07:25 03/17/24 07:30 03/17/24 07:41 Temperature 36.4 C L Temperature Source Oral Pulse Rate 95 H 89 Pulse Rate from SpO2 Sensor Respiratory Rate 14 Blood Pressure 188/106 H 212/100 H Blood Pressure Mean 168 137 Pulse Oximetry 97 Oxygen Delivery Method Room Air Oxygen Flow Rate Sepsis Recent Fever Within 48 Hours No Sepsis New/Unexplained Change in Mental Status N/A Sepsis Action Taken by Nursing No Action Required Oxygen Flow Rate - Titration Pulse Oximetry Post Tiitration 03/17/24 08:00 03/17/24 08:03 03/17/24 08:27 Temperature Temperature Source Pulse Rate 86 86 Pulse Rate from SpO2 Sensor 86 86 Respiratory Rate 15 15 Blood Pressure 182/87 H Blood Pressure Mean 135 Pulse Oximetry 94 99 Oxygen Delivery Method Room Air Room Air Oxygen Flow Rate Sepsis Recent Fever Within 48 Hours Sepsis New/Unexplained Change in Mental Status Sepsis Action Taken by Nursing Oxygen Flow Rate - Titration Pulse Oximetry Post Tiitration 03/17/24 08:30 03/17/24 09:15 03/17/24 09:18 Temperature Temperature Source Pulse Rate 97 H Pulse Rate from SpO2 Sensor Respiratory Rate 16 Blood Pressure 189/91 H Blood Pressure Mean 114 Pulse Oximetry 96 Oxygen Delivery Method Nasal Cannula Nasal Cannula Oxygen Flow Rate 0 2 Sepsis Recent Fever Within 48 Hours Sepsis New/Unexplained Change in Mental Status Sepsis Action Taken by Nursing Oxygen Flow Rate - Titration 2 Pulse Oximetry Post Tiitration 96 03/17/24 09:21 03/17/24 09:36 03/17/24 10:00 Temperature Temperature Source Pulse Rate 86 Pulse Rate from SpO2 Sensor 86 Respiratory Rate 17 Blood Pressure 197/80 H 186/70 H 190/89 H Blood Pressure Mean 114 108 142 Pulse Oximetry 100 Oxygen Delivery Method Room Air Oxygen Flow Rate Sepsis Recent Fever Within 48 Hours Sepsis New/Unexplained Change in Mental Status Sepsis Action Taken by Nursing Oxygen Flow Rate - Titration Pulse Oximetry Post Tiitration 03/17/24 10:00 03/17/24 10:21 03/17/24 10:30 Temperature Temperature Source Pulse Rate 87 Pulse Rate from SpO2 Sensor 87 Respiratory Rate 16 Blood Pressure 190/89 H 179/97 H Blood Pressure Mean 142 101 Pulse Oximetry 100 Oxygen Delivery Method Nasal Cannula Oxygen Flow Rate 2 Sepsis Recent Fever Within 48 Hours Sepsis New/Unexplained Change in Mental Status Sepsis Action Taken by Nursing Oxygen Flow Rate - Titration Pulse Oximetry Post Tiitration 03/17/24 11:00 03/17/24 11:01 Temperature Temperature Source Pulse Rate 88 Pulse Rate from SpO2 Sensor 85 Respiratory Rate 17 Blood Pressure 203/88 H Blood Pressure Mean 114 Pulse Oximetry 94 Oxygen Delivery Method Nasal Cannula Oxygen Flow Rate 2 Sepsis Recent Fever Within 48 Hours Sepsis New/Unexplained Change in Mental Status Sepsis Action Taken by Nursing Oxygen Flow Rate - Titration Pulse Oximetry Post Tiitration Laboratory Data 03/17/24 07:30 03/17/24 07:30 Lab Results 03/17/24 03/17/24 03/17/24 Range/Units 07:30 07:50 09:15 WBC 8.91 (4.8-10.8) K/ul RBC 4.34 L (4.70-6.10) M/uL Hgb 12.7 L (14.0-18.0) g/dl POC Hgb 13.3 L (14.0-18.0) g/dl Hct 40.8 L (42.0-52.0) % POC Hct 39 L (42-52) % MCV 94.0 (80.0-100.0) fL MCH 29.3 (25.0-34.0) pg MCHC 31.1 L (32.0-36.0) g/dL RDW Std Deviation 54.3 H (36.4-46.3) fL RDW Coeff of Yolanda 15.7 H (11.5-14.5) % Plt Count 270 (130-400) K/uL MPV 10.1 (9.4-12.4) fL Immature Gran % (Auto) 0.6 % Neut % (Auto) 78.7 % Lymph % (Auto) 12.6 % [place] % (Auto) 5.3 % Eos % (Auto) 2.4 % Baso % (Auto) 0.4 % Neut # (Auto) 7.02 H (1.40-6.50) K/uL Lymph # (Auto) 1.12 L (1.20-3.40) K/uL [place] # (Auto) 0.47 (0.11-0.59) K/uL Eos # (Auto) 0.21 (0.00-0.50) K/uL Baso # (Auto) 0.04 (0.00-0.20) K/uL Immature Gran # (Auto) 0.05 (0.01-0.20) K/uL PT 10.7 (9.0-12.0) Seconds INR 1.0 (0.9-1.1) POC Sodium 142 (135-144) mmol/L Sodium 140 (136-145) mmol/L POC Potassium 4.5 (3.3-5.0) mmol/L Potassium 4.4 (3.5-5.1) mmol/L POC Chloride 110 (101-112) mmol/L Chloride 108 H (98-107) mmol/L Carbon Dioxide 23 (21-32) mmol/L POC Total CO2 23 L (24-31) mmol/L Anion Gap 9 (3-11) POC Anion Gap 15.0 L (16-25) mmol/L POC BUN 35 H (7-18) mg/dl BUN 29 H (6-23) mg/dl Creatinine 2.34 H (0.6-1.4) mg/dl POC Creatinine 2.5 H (0.6-1.3) mg/dl Est Cr Clr Drug Dosing 37.6 ml/min eGFR 27.77 BUN/Creatinine Ratio 12.4 (10-20) Glucose 149 H (70-99(Fasting)) mg/dl POC Glucose (other) 149 H (70-99) mg/dl Calcium 9.2 (8.6-10.3) mg/dl POC Ioniz Calcium Bren 1.16 (1.12-1.32) mmol/l Magnesium 2.0 (1.7-2.4) mg/dl Total Bilirubin 0.5 (0.2-1.0) mg/dl AST 13 (13-39) U/L ALT 9 (7-52) U/L Alkaline Phosphatase 54 (34-104) U/L Troponin I High Sens 11.6 (0-20) pg/ml Total Protein 7.6 (6.0-8.3) gm/dl Albumin 3.3 L (3.4-5.0) gm/dl Globulin 4.3 H (2.5-4.0) gm/dl Albumin/Globulin Ratio 0.8 L (0.9-2) Lipase 29 (11-82) U/L TSH 2.543 (0.300-4.500) uIu/ml Urine Color Yellow Urine Appearance Turbid A (Clear) Urine pH 6.0 (4.5-7.5) Ur Specific [place] 1.013 (1.000-1.030) Urine Protein Trace H (Negative) Urine Glucose (UA) Negative (Negative) Urine Ketones Negative (Negative) Urine Blood 1+ H (Negative) Urine Nitrite Positive A (Negative) Urine Bilirubin Negative (Negative) Urine Urobilinogen Negative (Negative) Ur Leukocyte Esterase 3+ H (Negative) Urine WBC (Auto) >50 H (0-5) /hpf Urine RBC (Auto) 0-2 (0-2) /hpf U Hyaline Cast (Auto) 3-5 H (0-2) /lpf U Epithel Cells (Auto) 0-2 (0-2) /hpf Urine Bacteria (Auto) 4+ H (None Seen) Hyaline Casts Present A (None Presnt) /lpf Adenovirus (PCR) (NotDetected) B. pertussis DNA (PCR) (NotDetected) B.parapertussis DNA PCR (NotDetected) C. pneumoniae DNA (PCR) (NotDetected) Coronavirus OC43 (PCR) (NotDetected) Coronavirus HKU1 (PCR) (NotDetected) Coronavirus 229E (PCR) (NotDetected) SARS-CoV-2 (PCR) (NotDetected) Coronavirus NL63 (PCR) (NotDetected) Human Metapneumovir PCR (NotDetected) Influenza Type A (PCR) (NotDetected) Influenza Type B (PCR) (NotDetected) M. pneumoniae (PCR) (NotDetected) Parainfluenza 1 (PCR) (NotDetected) Parainfluenza 2 (PCR) (NotDetected) Parainfluenza 3 (PCR) (NotDetected) Parainfluenza 4 (PCR) (NotDetected) RSV (PCR) (NotDetected) Entero/Rhino (PCR) (NotDetected) 03/17/24 Range/Units 09:24 WBC (4.8-10.8) K/ul RBC (4.70-6.10) M/uL Hgb (14.0-18.0) g/dl POC Hgb (14.0-18.0) g/dl Hct (42.0-52.0) % POC Hct (42-52) % MCV (80.0-100.0) fL MCH (25.0-34.0) pg MCHC (32.0-36.0) g/dL RDW Std Deviation (36.4-46.3) fL RDW Coeff of Yolanda (11.5-14.5) % Plt Count (130-400) K/uL MPV (9.4-12.4) fL Immature Gran % (Auto) % Neut % (Auto) % Lymph % (Auto) % [place] % (Auto) % Eos % (Auto) % Baso % (Auto) % Neut # (Auto) (1.40-6.50) K/uL Lymph # (Auto) (1.20-3.40) K/uL [place] # (Auto) (0.11-0.59) K/uL Eos # (Auto) (0.00-0.50) K/uL Baso # (Auto) (0.00-0.20) K/uL Immature Gran # (Auto) (0.01-0.20) K/uL PT (9.0-12.0) Seconds INR (0.9-1.1) POC Sodium (135-144) mmol/L Sodium (136-145) mmol/L POC Potassium (3.3-5.0) mmol/L Potassium (3.5-5.1) mmol/L POC Chloride (101-112) mmol/L Chloride (98-107) mmol/L Carbon Dioxide (21-32) mmol/L POC Total CO2 (24-31) mmol/L Anion Gap (3-11) POC Anion Gap (16-25) mmol/L POC BUN (7-18) mg/dl BUN (6-23) mg/dl Creatinine (0.6-1.4) mg/dl POC Creatinine (0.6-1.3) mg/dl Est Cr Clr Drug Dosing ml/min eGFR BUN/Creatinine Ratio (10-20) Glucose (70-99(Fasting)) mg/dl POC Glucose (other) (70-99) mg/dl Calcium (8.6-10.3) mg/dl POC Ioniz Calcium Bren (1.12-1.32) mmol/l Magnesium (1.7-2.4) mg/dl Total Bilirubin (0.2-1.0) mg/dl AST (13-39) U/L ALT (7-52) U/L Alkaline Phosphatase (34-104) U/L Troponin I High Sens (0-20) pg/ml Total Protein (6.0-8.3) gm/dl Albumin (3.4-5.0) gm/dl Globulin (2.5-4.0) gm/dl Albumin/Globulin Ratio (0.9-2) Lipase (11-82) U/L TSH (0.300-4.500) uIu/ml Urine Color Urine Appearance (Clear) Urine pH (4.5-7.5) Ur Specific [place] (1.000-1.030) Urine Protein (Negative) Urine Glucose (UA) (Negative) Urine Ketones (Negative) Urine Blood (Negative) Urine Nitrite (Negative) Urine Bilirubin (Negative) Urine Urobilinogen (Negative) Ur Leukocyte Esterase (Negative) Urine WBC (Auto) (0-5) /hpf Urine RBC (Auto) (0-2) /hpf U Hyaline Cast (Auto) (0-2) /lpf U Epithel Cells (Auto) (0-2) /hpf Urine Bacteria (Auto) (None Seen) Hyaline Casts (None Presnt) /lpf Adenovirus (PCR) Not Detected (NotDetected) B. pertussis DNA (PCR) Not Detected (NotDetected) B.parapertussis DNA PCR Not Detected (NotDetected) C. pneumoniae DNA (PCR) Not Detected (NotDetected) Coronavirus OC43 (PCR) Not Detected (NotDetected) Coronavirus HKU1 (PCR) Not Detected (NotDetected) Coronavirus 229E (PCR) Not Detected (NotDetected) SARS-CoV-2 (PCR) Not Detected (NotDetected) Coronavirus NL63 (PCR) Not Detected (NotDetected) Human Metapneumovir PCR Not Detected (NotDetected) Influenza Type A (PCR) Not Detected (NotDetected) Influenza Type B (PCR) Not Detected (NotDetected) M. pneumoniae (PCR) Not Detected (NotDetected) Parainfluenza 1 (PCR) Not Detected (NotDetected) Parainfluenza 2 (PCR) Not Detected (NotDetected) Parainfluenza 3 (PCR) Not Detected (NotDetected) Parainfluenza 4 (PCR) Not Detected (NotDetected) RSV (PCR) Not Detected (NotDetected) Entero/Rhino (PCR) Not Detected (NotDetected) Administered Medications Sodium Chloride (Nss) 1,000 mls @ 125 mls/hr IV .Q8H LEE Stop: 03/17/24 15:44 Last Admin: 03/17/24 07:47 Dose: 125 mls/hr Documented By: TIMUR Discontinued Medications Furosemide (Furosemide Inj 20 Mg/2 Ml Vial) 20 mg IV QAM [facility] Stop: 04/16/24 12:29 Last Admin: 03/17/24 14:06 Dose: Not Given Documented By: TIMUR Cefepime HCl (Maxipime 2000mg) 2,000 mg in 20 mls @ 5 mls/min IV NOW STA; Protocol Stop: 03/17/24 10:12 Last Admin: 03/17/24 10:14 Dose: 5 mls/min Documented By: TIMUR Lisinopril (Lisinopril 10 Mg Tab) 10 mg PO NOW STA Stop: 03/17/24 10:20 Last Admin: 03/17/24 11:14 Dose: 10 mg Documented By: TIMUR Metoprolol Succinate (Metoprolol Succ 25mg Ext Rel Tab) 25 mg PO NOW STA Stop: 03/17/24 10:20 Last Admin: 03/17/24 11:14 Dose: 25 mg Documented By: TIMUR Ondansetron HCl (Ondansetron Inj 2 Mg/Ml 2 Ml Vial) 4 mg IV NOW STA Stop: 03/17/24 07:37 Last Admin: 03/17/24 07:47 Dose: 4 mg Documented By: TIMUR Imaging Data Radiologist's Impression: Chest X-Ray 03/17/24 07:33 EXAM: XR chest 1V portable CLINICAL HISTORY: WEAKNESS, NAUSEA MCS TECHNIQUE: An X-ray image of the chest is obtained in 1 frontal projection. COMPARISON: 01/06/2023 CR. FINDINGS: Pulmonary Parenchyma: Redemonstrated left lung lower zone opacity with more reduced aeration in the current study. The blunted left costophrenic angle could be due to a small effusion. Heart and Mediastinum: Mild cardiomegaly. Aortic atheromatous calcification. No mediastinal widening or masses. No hilar or mediastinal lymphadenopathy. Bony Thorax: The bony thorax appears intact without fractures or deformities. Soft Tissues: Soft tissues overlying the chest wall are unremarkable. IMPRESSION: 1. Redemonstrated left lung lower zone opacity with more reduced aeration in the current study. Likely edema/ infectious. Clinical correlation and follow-up are advised. 2. The blunted left costophrenic angle could be due to a small effusion. 3. Mild cardiomegaly. [facility] was called at [phone] at 07:58 AM LIBRARY CIRCULATION ASSISTANT, 03/16/2024, and Coco Berry was informed regarding the presence of important medical findings in the report. Electronically signed by Coleman Weems 03-17-2024 09:01 AM Discharge Plan Visit Data Chief Complaint: Illness ED Provider: Coco Morrissey Discharge Problem: Generalized weakness, Nausea, Chronic kidney disease, stage 4 (severe), Essential hypertension, Acute UTI (urinary tract infection) Patient Disposition: Admitted As Inpatient Discharge Instructions Interventions: ED Discharge Assessment Last Done: 03/17/24 14:52
[2024-03-17] MEDS: SODIUM CHLORIDE 0.9% 1,000 ML IV SCH (07:47)
[2024-03-17] MEDS: ONDANSETRON INJ 2 MG/ML 2 ML VIAL IV STA (07:47)
[2024-03-17 08:02] LABS: iSTAT Creatinine 2.5 mg/dl (0.6-1.3); iSTAT Hemoglobin 13.3 g/dl (14.0-18.0); iSTAT Ionized Calcium 1.16 mmol/l (1.12-1.32); iSTAT Potassium 4.5 mmol/L (3.3-5.0)
[2024-03-17 08:15] LABS: Prothrombin Time 10.7 Seconds (9.0-12.0)
[2024-03-17 08:33] LABS: Albumin Globulin Ratio 0.8 (0.9-2); Albumin Level 3.3 gm/dl (3.4-5.0); BUN Creatinine Ratio 12.4 (10-20); Bilirubin,Total 0.5 mg/dl (0.2-1.0); Calcium 9.2 mg/dl (8.6-10.3); Creatinine Clr Calc Pharmacy 37.6 ml/min; Globulin 4.3 gm/dl (2.5-4.0); Total Protein 7.6 gm/dl (6.0-8.3)
[2024-03-17 08:39] LABS: Troponin I High Sensitivity 11.6 pg/ml (0-20)
[2024-03-17 08:48] LABS: Potassium 4.4 mmol/L (3.5-5.1); Thyroid Stimulating Hormone 2.543 uIu/ml (0.300-4.500)
--- NOTE | 2024-03-17 09:02 | XRay Report ---
EXAM: XR chest 1V portable CLINICAL HISTORY: WEAKNESS, NAUSEA MCS TECHNIQUE: An X-ray image of the chest is obtained in 1 frontal projection. COMPARISON: 01/06/2023 CR. FINDINGS: Pulmonary Parenchyma: Redemonstrated left lung lower zone opacity with more reduced aeration in the current study. The blunted left costophrenic angle could be due to a small effusion. Heart and Mediastinum: Mild cardiomegaly. Aortic atheromatous calcification. No mediastinal widening or masses. No hilar or mediastinal lymphadenopathy. Bony Thorax: The bony thorax appears intact without fractures or deformities. Soft Tissues: Soft tissues overlying the chest wall are unremarkable. IMPRESSION: 1. Redemonstrated left lung lower zone opacity with more reduced aeration in the current study. Likely edema/ infectious. Clinical correlation and follow-up are advised. 2. The blunted left costophrenic angle could be due to a small effusion. 3. Mild cardiomegaly. [facility] was called at [phone] at 07:58 AM CAR DISPATCHER, 03/16/2024, and Coco Berry was informed regarding the presence of important medical findings in the report. Electronically signed by Coleman Weems 03-17-2024 09:01 AM
[2024-03-17 10:02] LABS: Appearance Urine Turbid (Clear); Bacteria Urine Automated 4+ (None Seen); Bilirubin Urine Negative (Negative); Blood Urine 1+ (Negative); Color Urine Yellow; Epithelial Cell Urine Auto 0-2 /hpf (0-2); Glucose Urine UA Negative (Negative); Hyaline Casts Urine Present /lpf (None Presnt); Ketones Urine Negative (Negative); Leukocyte Esterase Urine 3+ (Negative); Nitrite Urine Positive (Negative); Protein Urine Trace (Negative); RBC Urine Automated 0-2 /hpf (0-2); Specific Gravity Urine 1.013 (1.000-1.030); Urobilinogen Urine Negative (Negative); WBC Urine Automated >50 /hpf (0-5)
[2024-03-17] MEDS: CEFEPIME 2000MG 2,000 MG/20 ML SYR IV STA (10:14)
[2024-03-17 10:29] LABS: Adenovirus PCR Not Detected (NotDetected); Bordetella parapertussis PCR Not Detected (NotDetected); Bordetella pertussis PCR Not Detected (NotDetected); Chlamydia pneumoniae PCR Not Detected (NotDetected); Coronavirus 229E PCR Not Detected (NotDetected); Coronavirus CoV-2 (COVID19)PCR Not Detected (NotDetected); Coronavirus HKU1 PCR Not Detected (NotDetected); Coronavirus NL63 PCR Not Detected (NotDetected); Coronavirus OC43PCR Not Detected (NotDetected); Human Metapneumovirus PCR Not Detected (NotDetected); Influenza A PCR Not Detected (NotDetected); Influenza B PCR Not Detected (NotDetected); Mycoplasma pneumoniae PCR Not Detected (NotDetected); Parainfluenza Virus 1 PCR Not Detected (NotDetected); Parainfluenza Virus 2 PCR Not Detected (NotDetected); Parainfluenza Virus 3 PCR Not Detected (NotDetected); Parainfluenza Virus 4 PCR Not Detected (NotDetected); Respiratory Syncytial VirusPCR Not Detected (NotDetected); Rhinovirus/Enterovirus PCR Not Detected (NotDetected)
--- NOTE | 2024-03-17 10:58 | History & Physical Report ---
Date of Service March 17, 2024 Assessment & Plan (1) UTI (urinary tract infection): Plan: patient with recurrent UTIs growing pansensitive Pseudomonas, history of T2DM presented with fatigue and nausea x 1 day UA showing nitrates, 3+ leukocyte esterase, >50 WBC, 3-5 hyaline casts, 4+ bacteria - no leukocytosis, VSS although slightly hypertensive (did not take a.m. medications) - urine culture pending - Cefepime started in ED; will continue, renally dosed to Q12 hours given CrCl 37.6 - Tylenol and Zofran prn (2) Essential hypertension: Plan: hypertensive on arrival, 212/110 Patient did not take a.m. medications - AM medications ordered on admission - discontinue IV fluids after 1 bag that has been mixed with ABX; suspect IV fluid resuscitation to increase BP - Continue lisinopril and metoprolol (3) Bilateral leg edema: Plan: Patient with chronic bilateral LE edema due to CKD below, signs of chronic venous stasis unchanged as per patient patient also stated that he has had skin grafts contributing to redness of bilateral LE CXR showing remonstrated left lower lung zone opacity with more reduced aeration in the current study, likely edema/infectious, blunted left costophrenic angle could be due to small effusion, mild cardiomegaly - When CXR compared with previous, relatively unchanged most recent echo 02/2022 showed normal systolic function - EF 60 to 65%, left ventricle hyperdynamic, right ventricle mildly dilated, moderate LVH - patient was started with gentle fluid resuscitation in ED, first dose of cefepime already mixed with fluids - will discontinue IV fluid resuscitation after first bag - monitor closely for fluid overload - Will Start IV Lasix 20 Mg daily - patient stated that he used to take 20 Mg p.o. daily but could not tolerate urinary urgency; quit taking it a few weeks ago. Discussed risks v ersus benefits, agreeable to trial IV Lasix while here. 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: Plan: Controlled on Insulin at home - Most recent A1C 8.6 in 2021; repeat with AM labs - continue home glargine 18 units HS - loose SSI with target BSG range 110-140mg/dL, CF 35 - T2DM diet - BSG ACHS if eating, q6h if npo (6) Sleep apnea: Plan: Patient stated he has been sleeping off and on all morning in the ER, likely reasoning for hypoxia - On 2 L O2 cannula on exam - Wean O2 as tolerated - CPAP HS Plan Chronic stable diagnoses: paroxysmal A-fib - EKG on admission showing NSR with first-degree AV block (hx of), continue metoprolol and Eliquis GERD - continue PPI prn Hypothyroidism - continue levothyroxine Nerve pain - continue gabapentin BPH - continue tamsulosin, bladder scan prn MGUS - follows with heme/onc VTE ppx: Eliquis Diet: Heart healthy, low-sodium, DM type II diet Code status: full Dispo: Med/Surg, awaiting urine cultures Admission and Anticipated Discharge Date Admission Date: 03/17/24 History of Present Illness Chief Complaint: illness Primary Care Provider: [facility] Patient is a 78-year-old male with a past medical history of recurrent UTIs growing Pseudomonas, hypertension, stage IV CKD, diabetes, paroxysmal A-fib. He presents today due to weakness and nausea which he typically has with previous UTIs. He stated that he woke up at 130 this morning with the associated symptoms, along with shakiness. He states that the weakness is more so a decr ease in energy rather than ambulatory dysfunction. He denies dysuria, difficulty urinating, hematuria. He normally has no urinary symptoms with previous UTIs. Patient is currently following with general surgery due to cholelithiasis, currently no cholecystitis. They are just monitoring his gallstones for now. He denies abdominal pain. His last meal was at 630 last evening, brisket sandwich with Macedonian fries. He endorses chronic rhinorrhea since 1993. Patient denies fever, chills, headache, dizziness, lightheadedness, sore throat, cough, dyspnea, dyspnea on exertion, chest pain, abdominal pain, vomiting, diarrhea, constipation, edema, numbness, tingling. He is compliant on his home medications, did not take them prior to arrival in ED; ordered on admission. He uses a CPAP at night for sleep apnea, he stated he was sleeping this morning in the ED which related to his hypoxia and need for nasal cannula. patient reassessed at 1400 due to refusal of Lasix. He stated that he only took it for a few days and could not tolerate going to the bathroom as frequently. Discussed with patient the benefit of continuing Lasix with edema, he is agreeable to trial IV Lasix upon transfer upstairs. Allergies Allergy/AdvReac Type Severity Reaction Status Date / Time orange Allergy Verified 03/17/24 16:33 orange flavor Allergy Verified 03/17/24 16:33 orange juice Allergy Verified 03/17/24 16:33 ciprofloxacin [From Cipro] AdvReac Intermediate Upset Verified 02/21/24 15:01 Stomach, Nausea, GI Discomfort oranges AdvReac Severe N/V/D Uncoded 02/21/24 15:01 Home Medications Medication Instructions Recorded Confirmed Type apixaban 5 mg tablet 5 mg PO BID 04/25/21 03/17/24 History cholecalciferol (vitamin D3) 25 25 mcg PO QAM 04/25/21 03/17/24 History mcg (1,000 unit) capsule folic acid 1 mg tablet 1 mg PO QAM 04/25/21 03/17/24 History levothyroxine 88 mcg capsule 88 mcg PO DAILYBB 04/25/21 03/17/24 History ferrous sulfate 325 mg (65 mg 325 mg PO QAM 06/30/21 03/17/24 History iron) tablet (FeroSul) gabapentin 100 mg capsule 100 mg PO QID PRN Nerve Pain 06/30/21 03/17/24 History trazodone 50 mg tablet 50 mg PO HS PRN Sleep 06/30/21 03/17/24 History tamsulosin 0.4 mg capsule 0.4 mg PO HS #30 caps 02/18/22 03/17/24 Rx phenol 1.4 % mucosal aerosol spray 2 spray mucous membrane Q4H PRN 02/19/22 03/17/24 Rx sore throat #20 mL insulin glargine 100 unit/mL (3 18 unit subcut HS 05/29/22 03/17/24 History mL) subcutaneous pen (Lantus Solostar U-100 Insulin) fluticasone propionate 50 1 spray intranasal BID PRN 08/06/23 03/17/24 History mcg/actuation nasal Congestion spray,suspension metoprolol succinate 25 mg 25 mg PO DAILY 08/06/23 03/17/24 History tablet,extended release 24 hr pantoprazole 40 mg tablet,delayed 40 mg PO DAILY PRN Acid Reflux 08/06/23 03/17/24 History release furosemide 20 mg tablet (Lasix) 20 mg PO DAILY #90 tabs 08/11/23 03/17/24 Rx ascorbic acid (vitamin C) 500 mg 500 mg PO DAILY 11/17/23 03/17/24 History tablet (Vitamin C) lisinopril 10 mg tablet 10 mg PO DAILY #30 tabs 02/21/24 03/17/24 Rx Past Med/Surg History Problem List (Updated 03/17/24 @ 15:09 by Coco Morrissey DO) Acute UTI (urinary tract infection) (Acute) Sleep apnea Nausea (Acute) Generalized weakness (Acute) Cholelithiasis Hypertension Diabetes Weakness (Acute) Acute UTI (Acute) UTI (urinary tract infection) 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 [place] Bilateral leg edema Vitamin D deficiency 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 Morbid obesity with BMI of 45.0-49.9, adult Chronic kidney disease, stage 4 (severe) (Acute) Hypothyroidism (Acute) Paroxysmal atrial fibrillation 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) Hyperlipidemia Essential hypertension (Acute) BPH w/o urinary obs/LUTS Age-related nuclear cataract, right eye Medical History Sleep apnea Surgical History H/O skin graft History of arthroplasty of right ankle No significant past surgical history Family History Grandfather (Maternal) Diabetes Grandfather (Paternal) Arteriosclerosis Stroke Mother Hypertension Father Stomach ulcer Denies family history of Ovarian cancer Prostate cancer Breast cancer Lung cancer Colorectal cancer Social History Smoking Status: Never smoker Second Hand Exposure: No; Do You Dip or Chew Tobacco: No; Hx Alcohol Use: No Hx Substance Use: No Preferred Language: Bol[place]ian Communication Ability: Effective Scaler Packer Required: No Beliefs That Will Affect Care: None marital status: Unknown Current Living Situation: Alone Current Living Situation Comment: studio apartment Other Information That Helps Us Care for You: No Feels Safe at Home: Yes Safety Concerns: Feels Safe At This Time Diet: regular during the past year weight has: remained stable Dental Care, Regularly: No Physical Activity Frequency: Does not Exercise Seatbelt Use: always Sunscreen Use: No Do you think of yourself as: straight/heterosexual Gender Identity: Male Assistive Devices: Cane, CPAP, Glasses, Hearing Aid - Bilateral and Walker Review of Systems Review of Systems: see HPI Physical Exam Physical Exam: The patient is awake, alert and oriented 3, obese, normocephalic and atr aumatic, in no acute distress. Non-toxic appearing. HEENT- EOMI, mucous membranes moist. Hearing grossly intact. Heart-normal S1 and S2. No murmurs, rubs or gallops. Lungs-decreased bilateral LL, no respiratory distress, no accessory muscle use. Abdomen-normal bowel sounds and soft. No ascites noted. Non-tender. Extremities- no clubbing. +2 pitting edema BL LE with signs of chronic venous s tasis. Rheumatologic-normal range of motion. Psychiatric-normal affect. Results & Data Results & Data Vital Signs (Past 12 Hours) Vital Signs Temp Pulse Resp BP Pulse Ox O2 Del Method O2 Flow Rate 03/17/24 10:00 190/89 H 03/17/24 09:36 86 17 186/70 H 100 Room Air 03/17/24 09:21 197/80 H 03/17/24 09:18 97 H 16 96 Nasal Cannula 2 03/17/24 09:15 Nasal Cannula 0 03/17/24 08:30 189/91 H 03/17/24 08:27 86 15 99 Room Air 03/17/24 08:03 86 15 94 Room Air 03/17/24 08:00 182/87 H 03/17/24 07:41 36.4 C L 89 14 212/100 H 97 Room Air 03/17/24 07:30 188/106 H 03/17/24 07:25 95 H Code Status & VTE Plan Code Status full code VTE Prophylaxis Plan VTE Prophylaxis will be ordered: Yes Supervising Physician Co-Signing Physician Notes Patient seen and examined, chart reviewed, case discussed with Manjula Boggs PA-C and I agree with the assessment and plan as above except as otherwise noted Labs and images reviewed 78yo M with history of pseudomonal UTI, CKD4 who presents with urinary sx and who is admitted for UTI. Patient is urinary symptoms, no leukocytosis. He is not hypotensive on admitting assessment. UA infected appearing. He has a history of pseudomonal UTIs, he is placed on cefepime. Additionally chest x-ray shows some mild pulmonary overload he has some associated lower extremity edema, Lasix daily is continued. Patient's last echo in 2021 was with a preserved EF. Rafael is seen at the bedside. Feels well with no questions or concerns at time of visit following transfer to the floor. He has not had any chest pain or chest pressure troponin is normal and his EKG does not show territorial ST depression/elevation. 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
[2024-03-17] MEDS: lisinopril 10 MG TAB PO STA (11:14)
[2024-03-17] MEDS: METOPROLOL SUCC 25MG EXT REL TAB PO STA (11:14)
[2024-03-17] MEDS: FUROSEMIDE INJ 20 MG/2 ML VIAL IV SCH ×2 (14:06→17:49)
--- NOTE | 2024-03-17 15:10 | Electrocardiogram Report ---
Test Reason : Blood Pressure : */* mmHG Vent. Rate : 88 BPM Atrial Rate : 88 BPM P-R Int : 284 ms QRS Dur : 102 ms QT Int : 394 ms P-R-T Axes : 54 -35 81 degrees QTcB Int : 476 ms Sinus rhythm with 1st degree A-V block Left axis deviation Nonspecific ST and T wave abnormality Abnormal ECG When compared with ECG of 14-Nov-2023 22:23, Premature ventricular complexes are no longer Present TX interval has increased T wave inversion more evident in Lateral leads Confirmed by Miller Stein [id number]) on 03/17/2024 3:10:12 PM Referred By: REFERRED SELF Confirmed By: Miller Stein
[2024-03-17] MEDS ORDERED: DEXTROSE 50% 50 ML SYRINGE IV PRN (15:22)
[2024-03-17] MEDS ORDERED: GLUCOSE 40% GEL 15 GM TUBE PO PRN (15:22)
[2024-03-17] MEDS ORDERED: traZODone HCL 50 MG TAB PO PRN (15:22)
[2024-03-17] MEDS ORDERED: GLUCAGON FOR INJ 1 MG VIAL SQ PRN (15:22)
[2024-03-17] MEDS ORDERED: CARBOHYDRATES FOR HYPOGLYCEMIA PO PRN (15:22)
[2024-03-17] MEDS ORDERED: ACETAMINOPHEN 325 MG TAB PO PRN (15:22)
[2024-03-17] MEDS ORDERED: ONDANSETRON INJ 2 MG/ML 2 ML VIAL IV PRN (15:22)
[2024-03-17] MEDS ORDERED: GABAPENTIN 100 MG CAP PO PRN (15:22)
[2024-03-17] MEDS ORDERED: GLUCOSE 10 TAB/TUBE PO PRN (15:22)
[2024-03-17] MEDS ORDERED: DOCUSATE SODIUM 100 MG CAP PO PRN (15:22)
[2024-03-17] MEDS: APIXABAN 5 MG TABLET PO SCH (17:50)
[2024-03-17] MEDS: FERROUS SULFATE 325 MG TAB PO SCH (17:50)
[2024-03-17] MEDS: FOLIC ACID 1 MG TAB PO SCH (17:50)
[2024-03-17] MEDS: INSULIN ASPART PER UNIT CHARGE SC SCH (17:50)
[2024-03-17] MEDS: TAMSULOSIN HCL 0.4 MG CAP PO SCH (20:38)
[2024-03-17] MEDS: LANTUS PER UNIT CHARGE SQ SCH (20:44)
[2024-03-17] MEDS: CEFEPIME 2000MG 2,000 MG/20 ML SYR IV SCH (21:55)
[2024-03-18] MEDS: LEVOTHYROXINE SODIUM 88 MCG TABLET PO SCH (05:38)
[2024-03-18 06:28] LABS: Basophils # (auto) 0.05 K/uL (0.00-0.20); Basophils % (auto) 0.5 %; Eosinophils # (auto) 0.23 K/uL (0.00-0.50); Eosinophils % (auto) 2.3 %; Hematocrit (blood only) 37.1 % (42.0-52.0); Hemoglobin 11.6 g/dl (14.0-18.0); Immature Granulocytes # (auto) 0.04 K/uL (0.01-0.20); Immature Granulocytes % (auto) 0.4 %; Lymphocytes # (auto) 1.13 K/uL (1.20-3.40); Lymphocytes % (auto) 11.5 %; Mean Corpuscular Hemoglobin 29.7 pg (25.0-34.0); Mean Corpuscular Hgb Conc 31.3 g/dL (32.0-36.0); Mean Corpuscular Volume 94.9 fL (80.0-100.0); Mean Platelet Volume 10.3 fL (9.4-12.4); Monocytes # (auto) 0.68 K/uL (0.11-0.59); Monocytes % (auto) 6.9 %; Neutrophils # (auto) 7.71 K/uL (1.40-6.50); Neutrophils % (auto) 78.4 %; Platelet Count 278 K/uL (130-400); RDW Coefficient of Variation 15.9 % (11.5-14.5); RDW Standard Deviation 55.4 fL (36.4-46.3); Red Blood Count 3.91 M/uL (4.70-6.10); White Blood Count 9.84 K/ul (4.8-10.8)
[2024-03-18 06:50] LABS: BUN Creatinine Ratio 12.9 (10-20); Calcium 9.1 mg/dl (8.6-10.3); Creatinine Clr Calc Pharmacy 35.8 ml/min; Potassium 4.4 mmol/L (3.5-5.1)
[2024-03-18 07:18] LABS: Estimated Average Glucose 123 mg/dl; Hemoglobin A1C 5.9 % (4.5-5.6)
[2024-03-18] MEDS: CHOLECALCIFEROL 25 MCG (1000 UNITS) TAB PO SCH (08:49)
[2024-03-18] MEDS: ASCORBIC ACID 500 MG TAB PO SCH (08:49)
[2024-03-18] MEDS: lisinopril 10 MG TAB PO SCH (08:50)
[2024-03-18] MEDS: PANTOprazole 40 MG TAB PO PRN (08:50)
[2024-03-18] MEDS: METOPROLOL SUCC 25MG EXT REL TAB PO SCH (08:50)
--- NOTE | 2024-03-18 13:20 | Hospitalist Progress Note ---
Date of Service March 18, 2024 Assessment & Plan (1) UTI (urinary tract infection): Plan: patient with recurrent UTIs growing pansensitive Pseudomonas, history of T2DM presented with fatigue and nausea x 1 day UA showing nitrates, 3+ leukocyte esterase, >50 WBC, 3-5 hyaline casts, 4+ bacteria - no leukocytosis - urine culture with 3 types of organisms present, all high counts. Repeat urine culture pendingof note, this was collected after dose of antibiotics - Continue cefepime, renally dosed to Q12 hours given CrCl 37.6 - Tylenol and Zofran prn (2) Essential hypertension: Plan: hypertensive on arrival, 212/110 - Continue lisinopril and metoprolol (3) Bilateral leg edema: Plan: Patient with chronic bilateral LE edema due to CKD below, signs of chronic venous stasis unchanged as per patient patient also stated that he has had skin grafts contributing to redness of bilateral LE CXR showing remonstrated left lower lung zone opacity with more reduced aeration in the current study, likely edema/infectious, blunted left costophrenic angle could be due to small effusion, mild cardiomegaly - When CXR compared with previous, relatively unchanged most recent echo 02/2022 showed normal systolic function - EF 60 to 65%, left ventricle hyperdynamic, right ventricle mildly dilated, moderate LVH - Will Start IV Lasix 20 Mg daily - patient stated that he used to take 20 Mg p.o. daily but could not tolerate urinary urgency; quit taking it a few weeks ago. 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: Plan: Controlled on Insulin at home - A1c well controlled at 5.9% - continue home glargine 18 units HS - loose SSI with target BSG range 110-140mg/dL, CF 35 - T2DM diet - BSG ACHS if eating, q6h if npo Plan Chronic stable diagnoses: paroxysmal A-fib - EKG on admission showing NSR with first-degree AV block (hx of), continue metoprolol and Eliquis GERD - continue PPI prn Hypothyroidism - continue levothyroxine Nerve pain - continue gabapentin BPH - continue tamsulosin, bladder scan prn MGUS - follows with heme/onc MIREYA - CPAP at bedtime VTE ppx: Eliquis Diet: Heart healthy, low-sodium, DM type II diet Code status: full Dispo: Med/Surg, awaiting urine cultures Admission and Anticipated Discharge Date Admission Date: March 17, 2024 Subjective Patient seen and evaluated at bedside. He states that he gets frequent UTIs and can tell when they are coming on. He states this current UTI "wiped him out." He notes he is less fatigued today compared to yesterday, but not at his baseline energy yet. He reports his smalltalk developer prescribed his Lasix but he is unsure why. He states the urinary frequency and bladder spasms it causes is too problematic for him and he does not want to take it. He denies any additional complaints or concerns at this time. Physical Exam Physical Exam: General: No acute distress, nondiaphoretic, well-developed, well-nourished. Skin: Chronic venous stasis changes in lower extremities bilaterally. No edema noted. Wrinkled skin suggests previous edema. Cardiac: Regular rate and rhythm without murmurs gallops or rubs. Pulm: Diminished breath sounds at bases bilaterally, otherwise clear to auscultation bilaterally without wheezes, rales or rhonchi. No respiratory distress. 98% on room air. Abdominal: Soft, nontender, nondistended. Bowel sounds present. Neuro: A&O x3. No focal neurological deficits. Results & Data Results & Data Vital Signs (Past 12 Hours) Vital Signs Temp Pulse Pulse Resp BP Pulse Ox O2 Del Method 03/18/24 09:00 Room Air 03/18/24 08:37 97.7 F 78 18 149/67 H 96 Room Air 03/18/24 02:19 72 17 97 O2 Flow Rate 03/18/24 09:00 03/18/24 08:37 03/18/24 02:19 3 Laboratory Results Reviewed CBC Reviewed chemistries Reviewed urine culture PG Care Time/CCT Total # of Minutes Spent Total Time Spent with Patient: Total time spent is greater than 50% in coordination of care (as documented) at patient's floor/unit and/or counseling patient: Coding Level of Care Code 59133 SUB INP/OBS CARE 2/35MIN Diagnoses UTI (urinary tract infection) N39.0 Essential hypertension I10 Bilateral leg edema R60.0 Chronic kidney disease, stage 4 (severe) N18.4 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
[2024-03-19 07:33] LABS: Hematocrit (blood only) 38.3 % (42.0-52.0); Hemoglobin 11.9 g/dl (14.0-18.0); Mean Corpuscular Hemoglobin 29.2 pg (25.0-34.0); Mean Corpuscular Hgb Conc 31.1 g/dL (32.0-36.0); Mean Corpuscular Volume 94.1 fL (80.0-100.0); Mean Platelet Volume 10.3 fL (9.4-12.4); Platelet Count 283 K/uL (130-400); RDW Coefficient of Variation 15.9 % (11.5-14.5); RDW Standard Deviation 56.2 fL (36.4-46.3); Red Blood Count 4.07 M/uL (4.70-6.10); White Blood Count 9.73 K/ul (4.8-10.8)
[2024-03-19 07:51] LABS: BUN Creatinine Ratio 14.9 (10-20); Calcium 9.3 mg/dl (8.6-10.3); Potassium 4.7 mmol/L (3.5-5.1)
--- NOTE | 2024-03-19 10:00 | Hospitalist Progress Note ---
Date of Service March 19, 2024 Assessment & Plan (1) UTI (urinary tract infection): Plan: patient with recurrent UTIs growing pansensitive Pseudomonas, history of T2DM presented with fatigue and nausea x 1 day UA showing nitrates, 3+ leukocyte esterase, >50 WBC, 3-5 hyaline casts, 4+ bacteria - no leukocytosis - urine culture with 3 types of organisms present, all high counts - Repeat urine culture with no growth of note, this was collected after dose of antibiotics - Will continue to treat based on prior culture sensitivities - Continue cefepime, renally dosed to Q12 hours - Tylenol and Zofran prn (2) Essential hypertension: Plan: hypertensive on arrival, 212/110 - Continue lisinopril and metoprolol - Blood pressures stable (3) Bilateral leg edema: Plan: Patient with chronic bilateral LE edema due to CKD below, signs of chronic venous stasis unchanged as per patient patient also stated that he has had skin grafts contributing to redness of bilateral LE - CXR showing remonstrated left lower lung zone opacity with more reduced aeration in the current study, likely edema/infectious, blunted left costophr enic angle could be due to small effusion, mild cardiomegaly > When CXR compared with previous, relatively unchanged - Most recent echo 02/2022 showed normal systolic function - EF 60 to 65%, left ventricle hyperdynamic, right ventricle mildly dilated, moderate LVH - Recently started on Lasix 20 mg PO daily by nephrology, but did not tolerate due to urinary urgency and frequency; quit taking it a few weeks ago - Initially agreed to trial IV Lasix while inpatient, but then refused - TEDs and promote leg elevation - strict I&O's (4) Chronic kidney disease, stage 4 (severe): Plan: History of stage IV CKD, baseline CR 2.2-2.4. 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: Plan: Controlled on Insulin at home - A1c well controlled at 5.9% - continue home glargine 18 units HS - loose SSI with target BSG range 110-140mg/dL, CF 35 - T2DM diet - BSG ACHS if eating, q6h if npo Plan Held lisinopril and Lasix Chronic stable diagnoses: paroxysmal A-fib - EKG on admission showing NSR with first-degree AV block (hx of), continue metoprolol and Eliquis GERD - continue PPI prn Hypothyroidism - continue levothyroxine Nerve pain - continue gabapentin BPH - continue tamsulosin, bladder scan prn MGUS - follows with heme/onc MIREYA - CPAP at bedtime VTE PPx: Eliquis CODE STATUS: Full code Admission and Anticipated Discharge Date Admission Date: March 17, 2024 Subjective Patient seen and evaluated in bedside chair. He reports feeling well and believes his energy is returning to baseline. We discussed the results of his urine culture and that we will continue to treat his UTI based on prior culture sensitivities. He was encouraged to drink water today to improve his kidney function. He denies nausea, diarrhea, abdominal pain, chest pain, SOB. He is eating and sleeping without problem. No additional complaints or concerns at this time. Physical Exam Physical Exam: General: No acute distress, nondiaphoretic, well-developed, well-nourished. Skin: Chronic venous stasis changes in lower extremities bilaterally. No edema noted. Wrinkled skin suggests previous edema. Cardiac: Regular rate and rhythm without murmurs gallops or rubs. Pulm: Diminished breath sounds at bases bilaterally, otherwise clear to auscultation bilaterally without wheezes, rales or rhonchi. No respiratory distress. 96% on room air. Abdominal: Soft, nontender, nondistended. Bowel sounds present. Neuro: A&O x3. No focal neurological deficits. Results & Data Results & Data Vital Signs (Past 12 Hours) Vital Signs Temp Pulse Resp BP Pulse Ox O2 Del Method O2 Flow Rate 03/19/24 07:16 97.5 F L 69 18 121/62 96 Nasal Cannula 2 Laboratory Results Reviewed CBC Reviewed BMP Reviewed urine cultures PG Care Time/CCT Total # of Minutes Spent Total Time Spent with Patient: Total time spent is greater than 50% in coordination of care (as documented) at patient's floor/unit and/or counseling patient: Coding Level of Care Code 34788 SUB INP/OBS CARE 2/35MIN Diagnoses UTI (urinary tract infection) N39.0 Essential hypertension I10 Bilateral leg edema R60.0 Chronic kidney disease, stage 4 (severe) N18.4 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
[2024-03-19] MEDS: levoFLOXacin 250 MG TABLET PO ONE (22:39)
[2024-03-20 07:00] VITALS: BP 143/75; RESP 18; TEMP 97.5; O2SAT 98
[2024-03-20 08:41] LABS: BUN Creatinine Ratio 15.1 (10-20); Calcium 9.3 mg/dl (8.6-10.3); Creatinine Clr Calc Pharmacy 32.6 ml/min; Potassium 4.4 mmol/L (3.5-5.1)
--- NOTE | 2024-03-20 10:18 | Discharge Summary ---
Discharge Summary Date of Service March 20, 2024 Principal Dx & Hospital Course #1 = Principal Diagnosis (1) UTI (urinary tract infection): patient with recurrent UTIs growing pansensitive Pseudomonas, history of T2DM presented with fatigue and nausea x 1 day UA showing nitrates, 3+ leukocyte esterase, >50 WBC, 3-5 hyaline casts, 4+ bacteria - no leukocytosis - urine culture with 3 types of organisms present, all high counts - Repeat urine culture with no growth of note, this was collected after dose of antibiotics - Will continue to treat based on prior culture sensitivities - Treated with Cefepime while inpatient - Discharged on Levofloxacin for total of 7 day antibiotic course (2) Chronic kidney disease, stage 4 (severe): History of stage IV CKD, baseline CR 2.2-2.4. Most likely secondary to vascular disease - UA showing trace protein - Cr 2.34 on admission, very mildly elevated (as is with previous UTIs) - Cr and BUN acutely elevated at 2.65 and 40 respectively - Lisinopril and Lasix on HOLD -- outpatient BMP ordered for 03/21/24 with results sent to PCP in [place] - Heart healthy, low-sodium diet - Encourage PO fluids (3) Essential hypertension: hypertensive on arrival, 212/110 - Continue lisinopril and metoprolol - Blood pressures stable (4) Bilateral leg edema: Patient with chronic bilateral LE edema due to CKD below, signs of chronic venous stasis unchanged as per patient patient also stated that he has had skin grafts contributing to redness of bilateral LE - CXR showing remonstrated left lower lung zone opacity with more reduced aeration in the current study, likely edema/infectious, blunted left costophrenic angle could be due to small effusion, mild cardiomegaly > When CXR compared with previous, relatively unchanged - Most recent echo 02/2022 showed normal systolic function - EF 60 to 65%, left ventricle hyperdynamic, right ventricle mildly dilated, moderate LVH - Recently started on Lasix 20 mg PO daily by nephrology, but did not tolerate due to urinary urgency and frequency; quit taking it a few weeks ago - Initially agreed to trial IV Lasix while inpatient, but then refused. 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: Controlled on Insulin at home - A1c well controlled at 5.9% - continue home glargine 18 units HS - loose SSI with target BSG range 110-140mg/dL, CF 35 - T2DM diet Plan Chronic stable diagnoses: paroxysmal A-fib - EKG on admission showing NSR with first-degree AV block (hx of), continue metoprolol and Eliquis GERD - continue PPI prn Hypothyroidism - continue levothyroxine Nerve pain - continue gabapentin BPH - continue tamsulosin, bladder scan prn MGUS - follows with heme/onc MIREYA - CPAP at bedtime VTE PPx: Eliquis CODE STATUS: Full code Notes For Next Care Provider Monitor kidney function on BMP Patient refusing Lasix due to urinary frequency/urgency recommend further discussion in outpatient setting on importance/compliance Medication Changes From Visit Lisinopril and Lasix on hold until 03/22/2024 after discussion with PCP Admission HPI Per Admitting Provider Patient is a 78-year-old male with a past medical history of recurrent UTIs growing Pseudomonas, hypertension, stage IV CKD, diabetes, paroxysmal A-fib. He presents today due to weakness and nausea which he typically has with previous UTIs. He stated that he woke up at 130 this morning with the associated symptoms, along with shakiness. He states that the weakness is more so a decrease in energy rather than ambulatory dysfunction. He denies dysuria, difficulty urinating, hematuria. He normally has no urinary symptoms with previous UTIs. Patient is currently following with general surgery due to cholelithiasis, currently no cholecystitis. They are just monitoring his gallstones for now. He denies abdominal pain. His last meal was at 630 last evening, brisket sandwich with Slovak fries. He endorses chronic rhinorrhea since 1993. Patient denies fever, chills, headache, dizziness, lightheadedness, sore throat, cough, dyspnea, dyspnea on exertion, chest pain, abdominal pain, vomiting, diarrhea, constipation, edema, numbness, tingling. He is compliant on his home medications, did not take them prior to arrival in ED; ordered on admission. He uses a CPAP at night for sleep apnea, he stated he was sleeping this morning in the ED which related to his hypoxia and need for nasal cannula. patient reassessed at 1400 due to refusal of Lasix. He stated that he only took it for a few days and could not tolerate going to the bathroom as frequently. Discussed with patient the benefit of continuing Lasix with edema, he is agreeable to trial IV Lasix upon transfer upstairs. Discharge Exam General: No acute distress, nondiaphoretic, well-developed, well-nourished. Skin: Chronic venous stasis changes in lower extremities bilaterally. No edema noted. Wrinkled skin suggests previous edema. Cardiac: Regular rate and rhythm without murmurs gallops or rubs. Pulm: Diminished breath sounds at bases bilaterally, otherwise clear to auscultation bilaterally without wheezes, rales or rhonchi. No respiratory distress. 98% on room air. Abdominal: Soft, nontender, nondistended. Bowel sounds present. Neuro: A&O x3. No focal neurological deficits. Discharge Plan Discharge Items Patient Disposition: Home - Self-Care Reason For Visit: UTI, HTN Discharge Diagnosis: Urinary tract infection (UTI) Activity: Resume your previous activity Non-emergency contact: Primary Care Provider Call non-emergency contact if: you have any medication questions and your symptoms worsen Follow-up/Referrals: Elizabeth Chilel MD [Physician] - 03/28/24 11:00 am (Follow-up in 1 week) [facility] [Primary Care Provider] - (Follow-up 1 week) Diet: Carb Consistent or DM2, Heart Healthy and Low Sodium (2gm) Ambulatory Orders: Basic Metabolic Panel (Routine) Timeframe: 2 Days Location: Determined by Patient Ordered By: Lisbet Street Attending Provider Instructions: Mr. Santos, You were admitted to the hospital due to a urinary tract infection (UTI). This is likely what caused your symptoms of fatigue and nausea prior to coming to the hospital. You were treated with IV antibiotics while in the hospital, and are being discharged on oral antibiotics to continue taking at home. Additionally, your kidney function is slightly worse than your baseline. We will continue to monitor this. Upon discharge from the hospital: * Take levofloxacin (oral antibiotic) once daily x 4 additional days. You had today's dose of this antibiotic prior to leaving the hospital. Take your next dose tomorrow, 03/21/2024. I recommend taking this with food to avoid GI upset. * HOLD your lisinopril and Lasix until 03/22/2024 after discussion with your PCP. * Get blood work done on 03/21/2024. This is to check your kidney function. The results will be sent to your PCP. A lab slip has been printed with your discharge paperwork. * Follow-up with your PCP in [place] on 03/28/24 at 11:00 AM. Please contact your PCP or return to the hospital if you experience any of the following: Fever of 100.5 F or higher, return/worsening of your urinary symptoms, lightheadedness, dizziness, passing out, confusion, chest pain, shortness of breath, or any other symptoms concerning for you. It was a pleasure taking care of you while you were in the hospital, Lisbet Fernandez PA-C Call your Primary Care doctor if any of the following symptoms or problems start or get worse: * Shortness of breath or difficulty breathing * Wake up at night short of breath * Chest pain * Cough * Swelling of your hands, feet, or legs * More fatigued or tired with your normal activity * Palpitations - sudden fast heart beats WEIGHT * Weigh yourself every morning after using the bathroom. * Use the same scale. * Wear the same amount of clothing. * Write your weight down on a chart. * Call your Primary Care doctor if you gain more than 2-3 pounds in 1-2 days. MEDICATIONS * Use this discharge instruction sheet for medication instructions. * Take your medications at the time your doctor ordered. * Do not skip a dose of your medicines. * If you miss a dose of medicine, take it as soon as possible, but DO NOT DOUBLE A DOSE. * Read your medicine information when you get home. * Know all of the side effects of your medicine. If in doubt, ask your pharmacist * Call your Primary Care doctor's office if you have any side effects. * Be sure all of your doctors know what medicine and herbs you take (including cold, flu, and herbal medicine). Take the following with you to your follow-up doctor appointments: * Weight Chart * Medication List * List of questions Do not drink excessive alcohol, beer or wine. Pending Studies at Discharge: No Stand-Alone Forms: My [employer], Smoking Cessation Medications and DC Order Prescriptions: New levofloxacin 250 mg Tablet 250 mg PO DAILY@1100 Qty: 4 0RF Continued apixaban 5 mg tablet 5 mg PO BID cholecalciferol (vitamin D3) 25 mcg (1,000 unit) capsule 25 mcg PO QAM folic acid 1 mg tablet 1 mg PO QAM levothyroxine 88 mcg capsule 88 mcg PO DAILYBB metoprolol succinate 25 mg tablet extended release 24 hr 25 mg PO DAILY fluticasone propionate 50 mcg/actuation spray,suspension 1 spray intranasal BID PRN (Reason: Congestion) pantoprazole 40 mg tablet,delayed release (DR/EC) 40 mg PO DAILY PRN (Reason: Acid Reflux) tamsulosin 0.4 mg Capsule 0.4 mg PO HS Qty: 30 0RF phenol 1.4 % aerosol,spray 2 spray mucous membrane Q4H PRN (Reason: sore throat) Qty: 20 0RF insulin glargine [Lantus Solostar U-100 Insulin] 100 unit/mL (3 mL) insulin pen 18 unit subcut HS trazodone 50 mg tablet 50 mg PO HS PRN (Reason: Sleep) ferrous sulfate [FeroSul] 325 mg (65 mg iron) tablet 325 mg PO QAM gabapentin 100 mg capsule 100 mg PO QID PRN (Reason: Nerve Pain) ascorbic acid (vitamin C) [Vitamin C] 500 mg tablet 500 mg PO DAILY Held furosemide [Lasix] 20 mg tablet 20 mg PO DAILY Qty: 90 2RF Hold Instructions: Resume on 03/23/24. Provider's Order lisinopril 10 mg tablet 10 mg PO DAILY Qty: 30 6RF Hold Instructions: Resume on 03/23/24. Provider's Order Discharge Orders: Discharge Order (Routine); Ordered 03/20/24 Ordered By: Lisbet Fernandez Admission Data Admit Date/Time: 03/17/24 11:29 Attending Provider: Dario Jiménez Admit Provider: Elan Hebert Primary Care Provider: [facility] Other Providers: Elan Hebert Hospital Stay Data Consultations 03/17/24 12:08 ED Decision to Admit Stat Pending Results Patient Have Any Pending Studies at Discharge: No Discharge Instructions Given to Patient (Per Discharging Provider) Mr. Santos, Héctor were admitted to the hospital due to a urinary tract infection (UTI). This is likely what caused your symptoms of fatigue and nausea prior to coming to the hospital. You were treated with IV antibiotics while in the hospital, and are being discharged on oral antibiotics to continue taking at home. Additionally, your kidney function is slightly worse than your baseline. We will continue to monitor this. Upon discharge from the hospital: * Take levofloxacin (oral antibiotic) once daily x 4 additional days. You had today's dose of this antibiotic prior to leaving the hospital. Take your next dose tomorrow, 03/21/2024. I recommend taking this with food to avoid GI upset. * HOLD your lisinopril and Lasix until 03/22/2024 after discussion with your PCP. * Get blood work done on 03/21/2024. This is to check your kidney function. The results will be sent to your PCP. A lab slip has been printed with your discharge paperwork. * Follow-up with your PCP in [place] on 03/28/24 at 11:00 AM. Please contact your PCP or return to the hospital if you experience any of the following: Fever of 100.5 F or higher, return/worsening of your urinary symptoms, lightheadedness, dizziness, passing out, confusion, chest pain, shortness of breath, or any other symptoms concerning for you. It was a pleasure taking care of you while you were in the hospital, Lisbet Fernandez PA-C Call your Primary Care doctor if any of the following symptoms or problems start or get worse: * Shortness of breath or difficulty breathing * Wake up at night short of breath * Chest pain * Cough * Swelling of your hands, feet, or legs * More fatigued or tired with your normal activity * Palpitations - sudden fast heart beats WEIGHT * Weigh yourself every morning after using the bathroom. * Use the same scale. * Wear the same amount of clothing. * Write your weight down on a chart. * Call your Primary Care doctor if you gain more than 2-3 pounds in 1-2 days. MEDICATIONS * Use this discharge instruction sheet for medication instructions. * Take your medications at the time your doctor ordered. * Do not skip a dose of your medicines. * If you miss a dose of medicine, take it as soon as possible, but DO NOT DOUBLE A DOSE. * Read your medicine information when you get home. * Know all of the side effects of your medicine. If in doubt, ask your pharmacist * Call your Primary Care doctor's office if you have any side effects. * Be sure all of your doctors know what medicine and herbs you take (including cold, flu, and herbal medicine). Take the following with you to your follow-up doctor appointments: * Weight Chart * Medication List * List of questions Do not drink excessive alcohol, beer or wine. Total Time Total Time Spent Total Time Spent (In Minutes): Greater than 30 minutes spent completing this discharge process including direct patient care, medication reconciliation, documentation, review of labs and images, and coordination of care. Coding Level of Care Code 36531 INP/OBS DISCH >30 MIN Diagnoses UTI (urinary tract infection) N39.0 Chronic kidney disease, stage 4 (severe) N18.4 Essential hypertension I10 Bilateral leg edema R60.0 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
[2024-03-20 12:11] VITALS: PULSE 79
[2024-03-20] MEDS: levoFLOXacin 250 MG TABLET PO SCH (12:20)
== END 2024-03-20 13:08 | disposition home or self-care (01) | DRG 690 ==
LOC: ED 07:14 → SUATTDRO 11:29 → EDINP 11:29 → 3W 15:18

== ENCOUNTER 2024-04-02 03:57 | Inpatient (IN) ==
[2024-04-02 05:05] LABS: Basophils # (auto) 0.03 K/uL (0.00-0.20); Basophils % (auto) 0.4 %; Eosinophils # (auto) 0.15 K/uL (0.00-0.50); Eosinophils % (auto) 1.8 %; Hematocrit (blood only) 39.2 % (42.0-52.0); Hemoglobin 11.9 g/dl (14.0-18.0); Immature Granulocytes # (auto) 0.06 K/uL (0.01-0.20); Immature Granulocytes % (auto) 0.7 %; Lymphocytes # (auto) 0.97 K/uL (1.20-3.40); Lymphocytes % (auto) 11.6 %; Mean Corpuscular Hemoglobin 29.5 pg (25.0-34.0); Mean Corpuscular Hgb Conc 30.4 g/dL (32.0-36.0); Mean Corpuscular Volume 97.3 fL (80.0-100.0); Mean Platelet Volume 10.3 fL (9.4-12.4); Monocytes # (auto) 0.57 K/uL (0.11-0.59); Monocytes % (auto) 6.8 %; Neutrophils # (auto) 6.56 K/uL (1.40-6.50); Neutrophils % (auto) 78.7 %; Platelet Count 268 K/uL (130-400); RDW Coefficient of Variation 15.9 % (11.5-14.5); RDW Standard Deviation 57.1 fL (36.4-46.3); Red Blood Count 4.03 M/uL (4.70-6.10); White Blood Count 8.34 K/ul (4.8-10.8)
[2024-04-02] MEDS: ONDANSETRON INJ 2 MG/ML 2 ML VIAL IV STA (05:14)
[2024-04-02] MEDS: SODIUM CHLORIDE 0.9% 1,000 ML IV SCH (05:14)
[2024-04-02 05:18] LABS: Albumin Globulin Ratio 0.8 (0.9-2); Albumin Level 3.5 gm/dl (3.4-5.0); BUN Creatinine Ratio 11.8 (10-20); Bilirubin,Total 0.6 mg/dl (0.2-1.0); Calcium 9.1 mg/dl (8.6-10.3); Creatinine Clr Calc Pharmacy 41.7 ml/min; Globulin 4.2 gm/dl (2.5-4.0); Potassium 3.9 mmol/L (3.5-5.1); Total Protein 7.7 gm/dl (6.0-8.3)
[2024-04-02 05:24] LABS: Troponin I High Sensitivity 8.1 pg/ml (0-20)
--- NOTE | 2024-04-02 05:53 | Emergency Department Note ---
Impression & Plan Generalized weakness, Dysuria, Acute UTI (urinary tract infection) ED Provider Note ED Provider Note NAME: DOMITILA BAUM AGE:78 SEX: Male : 1945 ARRIVES VIA: EMS INFORMANT: Patient ED PROVIDER(s): Coco Morrissey DO CHIEF COMPLAINT: Generalized weakness, dysuria, concern for UTI HPI: This is a 78-year-old male presents emergency department due to concern for generalized weakness, dysuria, and concern for recurrent urinary tract infection. Patient with a history of UTIs and was recently admitted several weeks ago with similar symptoms. Patient states yesterday he began feeling increased fatigue, weakness, and felt slightly more unsteady. He noticed a small amount of burning with urination. He denies noticing any change in the color or odor of the urine. He denies any coming abdominal pain, back pain, nausea or vomiting, fevers or chills. Patient states [facility] and was placed on medication to help try and prevent urinary tract infections. He states he was told he has a Pseudomonas colony. PAST MEDICAL HISTORY:See Below PAST SURGICAL HISTORY:See Below FAMILY HISTORY:See Below SOCIAL HISTORY:See Below HOME MEDICATIONS:See Below ALLERGIES:See Below VITALS:See Below PHYSICAL EXAMINATION: GENERAL: alert, well appearing, well nourished, no distress, non-toxic, BMI 48 EYE EXAM: normal conjunctiva, PERRL and EOM's grossly intact OROPHARYNX: no exudate, no erythema, lips, buccal mucosa, and tongue normal and mucous membranes are dry NECK: supple, no nuchal rigidity, no adenopathy, non-tender LUNGS: Clear to auscultation. Normal chest wall mechanics, no w/r/r HEART: no murmurs, S1 normal and S2 normal ABDOMEN: abdomen soft, non-tender, normo-active bowel sounds, no masses, no rebound or guarding. SKIN: no rashes, petechiae, orbruising UPPER EXTREMITIES: upper extremities are grossly normal. FROM, nml pulses b/l. LOWER EXTREMITIES: No pitting edema. FROM, nml pulses b/l. NEURO EXAM: Normal sensorium, cranial nerves II-XII grossly intact, normal speech, no facial droop,nogross weakness of arms, no gross weakness of legs. Gross sensation intact. No ataxia. Vital Signs: reviewed and remarkable Differential Diagnosis: jeremias, uti, pyelo, dehydration, electrolyte abnormality, bacteremia/sepsis, colitis, sbo, bladder stone, renal colic,as well as others were considered MEDICAL DECISION MAKING: This is a 78 yo male who presents with concern for weakness, dysuria, decreased intake and recurrent UTI. Patient with similar symptoms 3 weeks ago. Prior urine cultures from 3 weeks ago negative however he was discharged on antibiotics. [facility] Those [facility] are not available. He was afebrile and VS stable. Labs drawn and sent, IV established, EKG performed and interpreted at bedside, and patient placed on telemetry. Urine collected and sent and suggestive of UTI. Give prior cultures, he was started on cefepime. He was hydrated and tolerated po without difficulty. We discussed options for disposition and due to weakness and concern for fall risk bc he lives alone patient states he feels unsafe returning home at this time. Case discucssed with the hospitalist team for additional evaluation and mgmt. Consultation(s): 0845: Discussed with Dr. Saunders, [place] hospitalist team, for additional evaluation and mgmt. ER Treatment Provided: See below Diagnostics Interpreted By Me: -ECG: Normal sinus at 63, first-degree AV block, normal axis, normal intervals, no acute ST/T wave changes -Cardiac Monitoring: An order was placed for continuous cardiac monitoring. The monitor shows a rate of 60 with normal sinus rhythm. -Laboratory studies: As stated above and show below. 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 Morbid obesity with BMI of 45.0-49.9, adult Chronic kidney disease, stage 4 (severe) (Acute) Hypothyroidism (Acute) Paroxysmal atrial fibrillation 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) Hyperlipidemia Essential hypertension (Acute) BPH w/o urinary obs/LUTS Age-related nuclear cataract, right eye Medical History Sleep apnea Surgical History H/O skin graft History of arthroplasty of right ankle No significant past surgical history Family History Grandfather (Maternal) Diabetes Grandfather (Paternal) Arteriosclerosis Stroke Mother Hypertension Father Stomach ulcer Denies family history of Ovarian cancer Prostate cancer Breast cancer Lung cancer Colorectal cancer Social History (Updated 03/28/24 @ 10:57 by Siobhan Chapman LPN) Smoking Status: Never smoker Second Hand Exposure: No; Do You Dip or Chew Tobacco: No; Hx Alcohol Use: No Hx Substance Use: No Preferred Language: Vietnamese Communication Ability: Effective Analytical Technician Required: No Beliefs That Will Affect Care: None marital status: Unknown Current Living Situation: Alone Current Living Situation Comment: studio apartment Other Information That Helps Us Care for You: No Feels Safe at Home: Yes Safety Concerns: Feels Safe At This Time Diet: regular during the past year weight has: remained stable Dental Care, Regularly: No Physical Activity Frequency: Does not Exercise Seatbelt Use: always Sunscreen Use: No Do you think of yourself as: straight/heterosexual Gender Identity: Male Assistive Devices: Cane, CPAP, Glasses, Hearing Aid - Bilateral and Walker Allergies Allergies Allergy/AdvReac Type Severity Reaction Status Date / Time orange Allergy Verified 03/17/24 16:33 orange flavor Allergy Verified 03/17/24 16:33 orange juice Allergy Verified 03/17/24 16:33 ciprofloxacin [From Cipro] AdvReac Intermediate Upset Verified 02/21/24 15:01 Stomach, Nausea, GI Discomfort oranges AdvReac Severe N/V/D Uncoded 02/21/24 15:01 Home Meds Home Medications Medication Instructions Recorded Confirmed apixaban 5 mg tablet 5 mg PO BID 04/25/21 04/02/24 cholecalciferol (vitamin D3) 25 25 mcg PO QAM 04/25/21 04/02/24 mcg (1,000 unit) capsule folic acid 1 mg tablet 1 mg PO QAM 04/25/21 04/02/24 levothyroxine 88 mcg capsule 88 mcg PO DAILYBB 04/25/21 04/02/24 ferrous sulfate 325 mg (65 mg 325 mg PO QAM 06/30/21 04/02/24 iron) tablet (FeroSul) gabapentin 100 mg capsule 100 mg PO QID PRN Nerve Pain 06/30/21 04/02/24 trazodone 50 mg tablet 50 mg PO HS PRN Sleep 06/30/21 04/02/24 insulin glargine 100 unit/mL (3 18 unit subcut HS 05/29/22 04/02/24 mL) subcutaneous pen (Lantus Solostar U-100 Insulin) fluticasone propionate 50 1 spray intranasal BID PRN 08/06/23 04/02/24 mcg/actuation nasal Congestion spray,suspension metoprolol succinate 25 mg 25 mg PO DAILY 08/06/23 04/02/24 tablet,extended release 24 hr pantoprazole 40 mg tablet,delayed 40 mg PO DAILY PRN Acid Reflux 08/06/23 04/02/24 release ascorbic acid (vitamin C) 500 mg 500 mg PO DAILY 11/17/23 04/02/24 tablet (Vitamin C) Previous Rx's Medication Instructions Recorded tamsulosin 0.4 mg capsule 0.4 mg PO HS #30 caps 02/18/22 phenol 1.4 % mucosal aerosol spray 2 spray mucous membrane Q4H PRN 02/19/22 sore throat #20 mL furosemide 20 mg tablet (Lasix) 20 mg PO DAILY #90 tabs 08/11/23 lisinopril 10 mg tablet 10 mg PO DAILY #30 tabs 02/21/24 Results & Data (ED) Vital Signs Vital Signs - 24 hr 04/02/24 03:51 04/02/24 03:51 04/02/24 04:04 Temperature 36.7 C Temperature Source Oral Pulse Rate 70 69 Pulse Rate [Apical] Pulse Rate from SpO2 Sensor Pulse Rhythm Regular Pulse Strength Normal Respiratory Rate 16 Respiratory Effort / Characteristics Non-Labored Spontaneous Respiratory Depth Normal Respiratory Pattern Regular Blood Pressure 206/106 H Blood Pressure [Right Arm] Blood Pressure Mean 139 Blood Pressure Mean [Right Arm] Blood Pressure Position Lying Blood Pressure Position [Right Arm] Pulse Oximetry 98 95 Oxygen Delivery Method Room Air Room Air Oxygen Flow Rate 0 Sepsis Recent Fever Within 48 Hours No Sepsis New/Unexplained Change in Mental Status No Sepsis Action Taken by Nursing No Action Required 04/02/24 04:27 04/02/24 04:33 04/02/24 04:33 Temperature Temperature Source Pulse Rate 61 67 Pulse Rate [Apical] 68 Pulse Rate from SpO2 Sensor 62 68 Pulse Rhythm Pulse Strength Respiratory Rate 18 20 22 Respiratory Effort / Characteristics Non-Labored Spontaneous Respiratory Depth Normal Respiratory Pattern Regular Blood Pressure 171/88 H 178/82 H Blood Pressure [Right Arm] 171/88 H Blood Pressure Mean 115 114 Blood Pressure Mean [Right Arm] 115 Blood Pressure Position Blood Pressure Position [Right Arm] Sitting Pulse Oximetry 93 98 98 Oxygen Delivery Method Room Air Room Air Room Air Oxygen Flow Rate Sepsis Recent Fever Within 48 Hours Sepsis New/Unexplained Change in Mental Status Sepsis Action Taken by Nursing 04/02/24 05:00 04/02/24 06:00 04/02/24 08:19 Temperature Temperature Source Pulse Rate 65 63 Pulse Rate [Apical] 66 Pulse Rate from SpO2 Sensor 65 Pulse Rhythm Pulse Strength Respiratory Rate 22 18 Respiratory Effort / Characteristics Non-Labored Spontaneous Respiratory Depth Normal Respiratory Pattern Regular Blood Pressure 178/82 H Blood Pressure [Right Arm] 158/72 H Blood Pressure Mean 114 Blood Pressure Mean [Right Arm] 100 Blood Pressure Position Blood Pressure Position [Right Arm] Sitting Pulse Oximetry 95 96 Oxygen Delivery Method Room Air Room Air Oxygen Flow Rate Sepsis Recent Fever Within 48 Hours Sepsis New/Unexplained Change in Mental Status Sepsis Action Taken by Nursing 04/02/24 08:44 Temperature Temperature Source Pulse Rate Pulse Rate [Apical] 60 Pulse Rate from SpO2 Sensor Pulse Rhythm Pulse Strength Respiratory Rate 20 Respiratory Effort / Characteristics Non-Labored Respiratory Depth Normal Respiratory Pattern Blood Pressure Blood Pressure [Right Arm] 185/67 H Blood Pressure Mean Blood Pressure Mean [Right Arm] 106 Blood Pressure Position Blood Pressure Position [Right Arm] Pulse Oximetry 93 Oxygen Delivery Method Room Air Oxygen Flow Rate Sepsis Recent Fever Within 48 Hours Sepsis New/Unexplained Change in Mental Status Sepsis Action Taken by Nursing Laboratory Data 04/02/24 04:05 04/02/24 04:05 Lab Results 04/02/24 04/02/24 Range/Units 04:05 05:26 WBC 8.34 (4.8-10.8) K/ul RBC 4.03 L (4.70-6.10) M/uL Hgb 11.9 L (14.0-18.0) g/dl Hct 39.2 L (42.0-52.0) % MCV 97.3 (80.0-100.0) fL MCH 29.5 (25.0-34.0) pg MCHC 30.4 L (32.0-36.0) g/dL RDW Std Deviation 57.1 H (36.4-46.3) fL RDW Coeff of Yolanda 15.9 H (11.5-14.5) % Plt Count 268 (130-400) K/uL MPV 10.3 (9.4-12.4) fL Immature Gran % (Auto) 0.7 % Neut % (Auto) 78.7 % Lymph % (Auto) 11.6 % [place] % (Auto) 6.8 % Eos % (Auto) 1.8 % Baso % (Auto) 0.4 % Neut # (Auto) 6.56 H (1.40-6.50) K/uL Lymph # (Auto) 0.97 L (1.20-3.40) K/uL [place] # (Auto) 0.57 (0.11-0.59) K/uL Eos # (Auto) 0.15 (0.00-0.50) K/uL Baso # (Auto) 0.03 (0.00-0.20) K/uL Immature Gran # (Auto) 0.06 (0.01-0.20) K/uL Sodium 144 (136-145) mmol/L Potassium 3.9 (3.5-5.1) mmol/L Chloride 110 H (98-107) mmol/L Carbon Dioxide 28 (21-32) mmol/L Anion Gap 6 (3-11) BUN 25 H (6-23) mg/dl Creatinine 2.11 H (0.6-1.4) mg/dl Est Cr Clr Drug Dosing 41.7 ml/min eGFR 31.45 BUN/Creatinine Ratio 11.8 (10-20) Glucose 147 H (70-99(Fasting)) mg/dl Calcium 9.1 (8.6-10.3) mg/dl Magnesium 2.0 (1.7-2.4) mg/dl Total Bilirubin 0.6 (0.2-1.0) mg/dl AST 12 L (13-39) U/L ALT 13 (7-52) U/L Alkaline Phosphatase 53 (34-104) U/L Troponin I High Sens 8.1 (0-20) pg/ml Total Protein 7.7 (6.0-8.3) gm/dl Albumin 3.5 (3.4-5.0) gm/dl Globulin 4.2 H (2.5-4.0) gm/dl Albumin/Globulin Ratio 0.8 L (0.9-2) Lipase 23 (11-82) U/L Urine Color Yellow Urine Appearance Clear (Clear) Urine pH 6.5 (4.5-7.5) Ur Specific [place] 1.012 (1.000-1.030) Urine Protein Trace H (Negative) Urine Glucose (UA) Negative (Negative) Urine Ketones Negative (Negative) Urine Blood Negative (Negative) Urine Nitrite Positive A (Negative) Urine Bilirubin Negative (Negative) Urine Urobilinogen Negative (Negative) Ur Leukocyte Esterase 2+ H (Negative) Urine WBC (Auto) 21-50 H (0-5) /hpf Urine RBC (Auto) 0-2 (0-2) /hpf U Hyaline Cast (Auto) 0-2 (0-2) /lpf U Epithel Cells (Auto) 0-2 (0-2) /hpf Urine Bacteria (Auto) 4+ H (None Seen) Administered Medications Apixaban (Apixaban 5 Mg Tablet) 5 mg PO BID [facility] Stop: 05/02/24 20:59 Last Admin: 04/02/24 21:25 Dose: 5 mg Documented By: SHAUN Furosemide (Furosemide 20 Mg Tab) 20 mg PO DAILY [facility] Stop: 05/02/24 12:14 Last Admin: 04/02/24 12:45 Dose: 20 mg Documented By: SAVANNAH Cefepime HCl (Maxipime 2000mg) 2,000 mg in 20 mls @ 5 mls/min IV Q12H [facility]; Protocol Stop: 04/07/24 17:59 Last Admin: 04/02/24 17:35 Dose: 5 mls/min Documented By: SAVANNAH Insulin Aspart (Insulin Aspart Per Unit Charge) 0 units SC ACHS [facility] Stop: 05/02/24 11:29 Last Admin: 04/02/24 21:38 Dose: Not Given Documented By: PNDarin Admin: 04/02/24 17:36 Dose: 2 units Documented By: SAVANNAH Co-signed By: JOSE Admin: 04/02/24 12:45 Dose: 1 units Documented By: SAVANNAH Co-signed By: DESI Insulin Glargine (Lantus Per Unit Charge) 9 units SQ BID [facility] Stop: 05/02/24 20:59 Last Admin: 04/02/24 21:24 Dose: 9 units Documented By: PNM Co-signed By: CECILLE Lisinopril (Lisinopril 10 Mg Tab) 10 mg PO DAILY [facility] Stop: 05/02/24 12:14 Last Admin: 04/02/24 12:45 Dose: 10 mg Documented By: SAVANNAH Tamsulosin HCl (Tamsulosin Hcl 0.4 Mg Cap) 0.4 mg PO HS [facility] Stop: 05/02/24 20:59 Last Admin: 04/02/24 21:25 Dose: 0.4 mg Documented By: PNM Discontinued Medications Sodium Chloride (Nss) 1,000 mls @ 125 mls/hr IV .Q8H [facility] Stop: 04/02/24 12:44 Last Infusion: 04/02/24 12:41 Dose: Infused Documented By: Admin: 04/02/24 06:04 Dose: 125 mls/hr Documented By: CRISTINA Cefepime HCl (Maxipime 2000mg) 2,000 mg in 20 mls @ 5 mls/min IV NOW STA; Protocol Stop: 04/02/24 06:31 Last Admin: 04/02/24 06:31 Dose: 5 mls/min Documented By: CRISTINA Metoprolol Succinate (Metoprolol Succ 25mg Ext Rel Tab) 25 mg PO NOW STA Stop: 04/02/24 09:41 Last Admin: 04/02/24 10:01 Dose: 25 mg Documented By: PADMINI Ondansetron HCl (Ondansetron Inj 2 Mg/Ml 2 Ml Vial) 4 mg IV NOW STA Stop: 04/02/24 04:44 Last Admin: 04/02/24 05:14 Dose: 4 mg Documented By: CRISTINA Discharge Plan Visit Data Chief Complaint: Weakness Stated Complaint: WEAKNESS, SHAKY, NAUSEA ED Provider: Coco Morrissey Discharge Problem: Generalized weakness, Dysuria, Acute UTI (urinary tract infection) Patient Disposition: Admitted As Inpatient Discharge Instructions Interventions: ED Discharge Assessment Last Done: 04/02/24 10:29
[2024-04-02 06:04] LABS: Appearance Urine Clear (Clear); Bacteria Urine Automated 4+ (None Seen); Bilirubin Urine Negative (Negative); Blood Urine Negative (Negative); Cast Urine Automated 0-2 /lpf (0-2); Color Urine Yellow; Epithelial Cell Urine Auto 0-2 /hpf (0-2); Glucose Urine UA Negative (Negative); Ketones Urine Negative (Negative); Leukocyte Esterase Urine 2+ (Negative); Nitrite Urine Positive (Negative); Protein Urine Trace (Negative); RBC Urine Automated 0-2 /hpf (0-2); Specific Gravity Urine 1.012 (1.000-1.030); Urobilinogen Urine Negative (Negative); WBC Urine Automated 21-50 /hpf (0-5); pH Urine 6.5 (4.5-7.5)
[2024-04-02] MEDS: CEFEPIME 2000MG 2,000 MG/20 ML SYR IV STA (06:31)
--- NOTE | 2024-04-02 09:10 | History & Physical Report ---
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: Plan: Last A1c at 5.9% on 03/18/2024 Patient is normally on Lantus 18u HS Lantus 9 u BID while inpatient SSI; with target BSG range 110-140mg/dL, CF 45, carb ratio 15 T2DM diet BSG ACHS Adjust regimen as needed (4) Leg edema: Plan: +2 pitting edema in the lower extremities bilaterally on arrival Euvolemic/slightly hypervolemic on arrival Patient reports good compliance with Lasix Last echo on 02/13/2022 revealed LVEF at 60 to 65% Daily weights Strict I&O monitoring Continue Lasix (5) Paroxysmal atrial fibrillation: Plan: Rate controlled Continue metoprolol, Eliquis (6) Sleep apnea: Plan: CPAP HS (7) MGUS (monoclonal gammopathy of unknown significance): Plan Disposition: Admit to [facility] Full code T2DM, heart healthy diet VTE PPx: On Eliquis History of Present Illness Chief Complaint: Weakness, nausea, burning with urination Primary Care Provider: [facility] Rafael is a pleasant 78-year-old male with PMH of MGUS, T2DM, HLD, HTN, BPH, CKD, paroxysmal atrial fibrillation (on Eliquis), and sleep apnea. He presented via EMS on 04/02 for nausea and generalized weakness. He reports that he began feeling unwell yesterday afternoon, and developed upset stomach, shaking, generalized weakness, and hot flashes. Patient does have a history of recurrent UTIs, and he reports that this is similar to prior episodes of UTI. Recent hospital admission at [facility] from 03/17 - 03/20 for UTI with similar presentation of symptoms. Patient went to bed feeling well, and when he woke up to use the restroom around 3:30 AM, he did develop mild burning with urination and decided to come to the hospital. Patient did not take his regular morning medicines today. He reports that he took all of the antibiotics prescribed upon discharge during his last hospital visit. He also reports that he took his regular Lantus insulin last night. He denies any fever at home. He ambulates with a walker and cane at baseline. No recent falls. Patient lives by himself. No sick contacts. He does use CPAP at night with 2L of supplemental oxygen. He reports that he watches his salt and sugar intake. No recent change in diet. He denies smoking, tobacco use, recent alcohol use. Patient is hypertensive at 185/67 at time of admission; vitals otherwise stable. ED course: Cefepime 2000 mg IV Zofran 4 mg IV NSS 1000 mL IV ROS: Patient endorses hot flashes, chills, shaking, lightheadedness when standing too fast, feeling off balance, sinus congestion, productive cough (clear), nausea, mild burning with urination, and chronic neuropathy. Patient denies fever, sweating, chest pain, SOB, pleuritic CP, abdominal pain, dry heaving, vomiting, diarrhea, dysuria, lower back pain, saddle anesthesia, or blood in the urine/stool. Allergies Allergy/AdvReac Type Severity Reaction Status Date / Time orange Allergy Verified 03/17/24 16:33 orange flavor Allergy Verified 03/17/24 16:33 orange juice Allergy Verified 03/17/24 16:33 ciprofloxacin [From Cipro] AdvReac Intermediate Upset Verified 02/21/24 15:01 Stomach, Nausea, GI Discomfort oranges AdvReac Severe N/V/D Uncoded 02/21/24 15:01 Home Medications Medication Instructions Recorded Confirmed Type apixaban 5 mg tablet 5 mg PO BID 04/25/21 04/02/24 History cholecalciferol (vitamin D3) 25 25 mcg PO QAM 04/25/21 04/02/24 History mcg (1,000 unit) capsule folic acid 1 mg tablet 1 mg PO QAM 04/25/21 04/02/24 History levothyroxine 88 mcg capsule 88 mcg PO DAILYBB 04/25/21 04/02/24 History ferrous sulfate 325 mg (65 mg 325 mg PO QAM 06/30/21 04/02/24 History iron) tablet (FeroSul) gabapentin 100 mg capsule 100 mg PO QID PRN Nerve Pain 06/30/21 04/02/24 History trazodone 50 mg tablet 50 mg PO HS PRN Sleep 06/30/21 04/02/24 History tamsulosin 0.4 mg capsule 0.4 mg PO HS #30 caps 02/18/22 04/02/24 Rx phenol 1.4 % mucosal aerosol spray 2 spray mucous membrane Q4H PRN 02/19/22 04/02/24 Rx sore throat #20 mL insulin glargine 100 unit/mL (3 18 unit subcut HS 05/29/22 04/02/24 History mL) subcutaneous pen (Lantus Solostar U-100 Insulin) fluticasone propionate 50 1 spray intranasal BID PRN 08/06/23 04/02/24 History mcg/actuation nasal Congestion spray,suspension metoprolol succinate 25 mg 25 mg PO DAILY 08/06/23 04/02/24 History tablet,extended release 24 hr pantoprazole 40 mg tablet,delayed 40 mg PO DAILY PRN Acid Reflux 08/06/23 04/02/24 History release furosemide 20 mg tablet (Lasix) 20 mg PO DAILY #90 tabs 08/11/23 04/02/24 Rx ascorbic acid (vitamin C) 500 mg 500 mg PO DAILY 11/17/23 04/02/24 History tablet (Vitamin C) lisinopril 10 mg tablet 10 mg PO DAILY #30 tabs 02/21/24 04/02/24 Rx Past Med/Surg History Problem List (Updated 04/03/24 @ 01:00 by Coco Morrissey, ) Acute UTI (urinary tract infection) (Acute) Leg edema Dysuria (Acute) Generalized weakness (Acute) Acute UTI (urinary tract infection) (Acute) Sleep apnea Generalized weakness (Acute) Cholelithiasis Hypertension Diabetes Weakness (Acute) Acute UTI (Acute) 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 [place] Bilateral leg edema Vitamin D deficiency 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 Morbid obesity with BMI of 45.0-49.9, adult Chronic kidney disease, stage 4 (severe) (Acute) Hypothyroidism (Acute) Paroxysmal atrial fibrillation 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) Hyperlipidemia Essential hypertension (Acute) BPH w/o urinary obs/LUTS Age-related nuclear cataract, right eye Medical History Sleep apnea Surgical History H/O skin graft History of arthroplasty of right ankle No significant past surgical history Family History Grandfather (Maternal) Diabetes Grandfather (Paternal) Arteriosclerosis Stroke Mother Hypertension Father Stomach ulcer Denies family history of Ovarian cancer Prostate cancer Breast cancer Lung cancer Colorectal cancer Social History (Updated 03/28/24 @ 10:57 by Siobhan Chapman LPN) Smoking Status: Never smoker Second Hand Exposure: No; Do You Dip or Chew Tobacco: No; Hx Alcohol Use: No Hx Substance Use: No Preferred Language: Ukrainian Communication Ability: Effective Office Admin Required: No Beliefs That Will Affect Care: None marital status: Unknown Current Living Situation: Alone Current Living Situation Comment: studio apartment Other Information That Helps Us Care for You: No Feels Safe at Home: Yes Safety Concerns: Feels Safe At This Time Diet: regular during the past year weight has: remained stable Dental Care, Regularly: No Physical Activity Frequency: Does not Exercise Seatbelt Use: always Sunscreen Use: No Do you think of yourself as: straight/heterosexual Gender Identity: Male Assistive Devices: Cane, CPAP, Glasses, Hearing Aid - Bilateral and Walker Review of Systems Review of Systems: See HPI above Physical Exam Physical Exam: General: no acute distress; pleasant affect; non-toxic appearing; well- nourished; cooperative; SpO2 93% on RA HEENT: normocephalic, atraumatic; no scleral icterus; PERRLA; vision and hearing grossly intact Neck: supple; trachea midline Skin: warm, dry without signs of tenting; no cyanosis; no rashes, bruising, lesions, or erythema noted CV: chest wall NTP; RRR; S1/S2 normal; no murmurs/rubs/gallops; pulses intact and symmetric at radial, DP, and PT Lungs: no acute respiratory distress; symmetrical chest wall expansion; clear breath sounds across all lung perez w/o adventitious sounds; no wheezing ABD: Soft, NTP; BS present; no rebound/guarding; no distention; negative suprapubic tenderness MSK: no tics or fasciculations; +2 pitting edema in the lower extremities bilaterally, nonerythematous Neuro: A&Ox3; normal mood and affect; fluent speech; no focal deficits; sensation intact and symmetric in lower extremities bilaterally Results & Data Results & Data Vital Signs (Past 12 Hours) Vital Signs Temp Pulse Pulse Resp BP BP Pulse Ox 04/02/24 08:44 60 20 185/67 H 93 04/02/24 08:19 63 04/02/24 06:00 66 18 158/72 H 96 04/02/24 05:00 65 22 178/82 H 95 04/02/24 04:33 67 22 178/82 H 98 04/02/24 04:33 68 20 171/88 H 98 04/02/24 04:27 61 18 171/88 H 93 04/02/24 04:04 69 04/02/24 03:51 95 04/02/24 03:51 36.7 C 70 16 206/106 H 98 O2 Del Method O2 Flow Rate 04/02/24 08:44 Room Air 04/02/24 08:19 04/02/24 06:00 Room Air 04/02/24 05:00 Room Air 04/02/24 04:33 Room Air 04/02/24 04:33 Room Air 04/02/24 04:27 Room Air 04/02/24 04:04 04/02/24 03:51 Room Air 0 04/02/24 03:51 Room Air Laboratory Results Abnormal lab results 04/02/24 04/02/24 Range/Units 04:05 05:26 RBC 4.03 L (4.70-6.10) M/uL Hgb 11.9 L (14.0-18.0) g/dl Hct 39.2 L (42.0-52.0) % MCHC 30.4 L (32.0-36.0) g/dL RDW Std Deviation 57.1 H (36.4-46.3) fL RDW Coeff of Yolanda 15.9 H (11.5-14.5) % Neut # (Auto) 6.56 H (1.40-6.50) K/uL Lymph # (Auto) 0.97 L (1.20-3.40) K/uL Chloride 110 H (98-107) mmol/L BUN 25 H (6-23) mg/dl Creatinine 2.11 H (0.6-1.4) mg/dl Glucose 147 H (70-99(Fasting)) mg/dl AST 12 L (13-39) U/L Globulin 4.2 H (2.5-4.0) gm/dl Albumin/Globulin Ratio 0.8 L (0.9-2) Urine Protein Trace H (Negative) Urine Nitrite Positive A (Negative) Ur Leukocyte Esterase 2+ H (Negative) Urine WBC (Auto) 21-50 H (0-5) /hpf Urine Bacteria (Auto) 4+ H (None Seen) ECG Additional Comments: ECG revealed sinus rhythm with first-degree AV block at 63 bpm; QTc 427 Code Status & VTE Plan Code Status Full code VTE Prophylaxis Plan VTE Prophylaxis will be ordered: Yes Supervising Physician Co-Signing Physician Notes I personally saw and examined the patient. I independently reviewed the labs, EKG, imaging, problem list, medication list, past medical history and family history. I verified all edouard points and agree with Davy Bansal PA-C with the following exceptions and/or additions: 78 year old with multiple presentations of UTI presents to the ER with dysuria, generalized weakness and chills. O/E A&Ox3, morbidly obese, HS RRR, no murmurs, Chest CTAB, Abdo SNT, no CVA tenderness A/P Acute UTI - IV cefepime given history of pseudomonas, follow up urine culture, consider methanamine on discharge Generalized weakness - feels he is too unsafe to go home at this time PG Care Time/CCT Total # of Minutes Spent Total Time Spent with Patient: Total time spent is greater than 50% in coordination of care (as documented) at patient's floor/unit and/or counseling patient: Coding [place] [address] INT INP/OBS CARE 2/55MIN Patient Type Established Medical Decision Making Moderate Complexity Diagnoses Acute UTI (urinary tract infection) N39.0 Generalized weakness R53.1 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
[2024-04-02] MEDS: METOPROLOL SUCC 25MG EXT REL TAB PO STA (10:01)
[2024-04-02] MEDS ORDERED: DEXTROSE 50% 50 ML SYRINGE IV PRN (10:49)
[2024-04-02] MEDS ORDERED: GLUCAGON FOR INJ 1 MG VIAL SQ PRN (10:49)
[2024-04-02] MEDS ORDERED: GLUCOSE 40% GEL 15 GM TUBE PO PRN (10:49)
[2024-04-02] MEDS ORDERED: CARBOHYDRATES FOR HYPOGLYCEMIA PO PRN (10:49)
[2024-04-02] MEDS ORDERED: PANTOprazole 40 MG TAB PO PRN (10:49)
[2024-04-02] MEDS ORDERED: ONDANSETRON INJ 2 MG/ML 2 ML VIAL IV PRN (10:49)
[2024-04-02] MEDS ORDERED: GABAPENTIN 100 MG CAP PO PRN (10:49)
[2024-04-02] MEDS ORDERED: traZODone HCL 50 MG TAB PO PRN (10:49)
[2024-04-02] MEDS ORDERED: FLUTICASONE PROPIONATE NA SPR 16 GM BTL PRN (10:49)
[2024-04-02] MEDS ORDERED: GLUCOSE 10 TAB/TUBE PO PRN (10:49)
[2024-04-02] MEDS ORDERED: ACETAMINOPHEN 325 MG TAB PO PRN (10:49)
[2024-04-02] MEDS: INSULIN ASPART PER UNIT CHARGE SC SCH (12:45)
[2024-04-02] MEDS: lisinopril 10 MG TAB PO SCH (12:45)
[2024-04-02] MEDS: FUROSEMIDE 20 MG TAB PO SCH (12:45)
[2024-04-02] MEDS: CEFEPIME 2000MG 2,000 MG/20 ML SYR IV SCH (17:35)
[2024-04-02] MEDS: LANTUS PER UNIT CHARGE SQ SCH (21:24)
[2024-04-02] MEDS: APIXABAN 5 MG TABLET PO SCH (21:25)
[2024-04-02] MEDS: TAMSULOSIN HCL 0.4 MG CAP PO SCH (21:25)
[2024-04-03] MEDS: LEVOTHYROXINE SODIUM 88 MCG TABLET PO SCH (05:40)
[2024-04-03 05:49] VITALS: RESP 18
[2024-04-03 07:39] LABS: Basophils # (auto) 0.03 K/uL (0.00-0.20); Basophils % (auto) 0.4 %; Eosinophils # (auto) 0.18 K/uL (0.00-0.50); Eosinophils % (auto) 2.3 %; Hematocrit (blood only) 35.5 % (42.0-52.0); Hemoglobin 10.8 g/dl (14.0-18.0); Immature Granulocytes # (auto) 0.03 K/uL (0.01-0.20); Immature Granulocytes % (auto) 0.4 %; Lymphocytes # (auto) 0.83 K/uL (1.20-3.40); Lymphocytes % (auto) 10.7 %; Mean Corpuscular Hgb Conc 30.4 g/dL (32.0-36.0); Mean Corpuscular Volume 95.4 fL (80.0-100.0); Mean Platelet Volume 10.1 fL (9.4-12.4); Monocytes # (auto) 0.53 K/uL (0.11-0.59); Monocytes % (auto) 6.8 %; Neutrophils # (auto) 6.18 K/uL (1.40-6.50); Neutrophils % (auto) 79.4 %; Platelet Count 224 K/uL (130-400); RDW Coefficient of Variation 15.9 % (11.5-14.5); RDW Standard Deviation 56.1 fL (36.4-46.3); Red Blood Count 3.72 M/uL (4.70-6.10); White Blood Count 7.78 K/ul (4.8-10.8)
[2024-04-03] MEDS: METOPROLOL SUCC 25MG EXT REL TAB PO SCH (07:45)
[2024-04-03] MEDS: FERROUS SULFATE 325 MG TAB PO SCH (07:45)
[2024-04-03] MEDS: FOLIC ACID 1 MG TAB PO SCH (07:45)
[2024-04-03 07:47] LABS: BUN Creatinine Ratio 11.9 (10-20); Potassium 4.4 mmol/L (3.5-5.1)
[2024-04-03] MEDS: lisinopril 20 MG TAB PO SCH (08:42)
--- NOTE | 2024-04-03 11:44 | Hospitalist Progress Note ---
Date of Service April 03, 2024 Assessment & Plan (1) Acute UTI (urinary tract infection): Plan: Patient presented on 04/02 for generalized weakness, nausea, and mild burning with urination H/o recurrent UTIs requiring hospital admission for similar symptoms; 1 episode of UTI w/ Pseudomonas w/ susceptibility to Cefepime (11/14/23) No leukocytosis; afebrile UA positive on arrival; repeat U/Cx collected this morning due to first one being contaminated; results pending Cefepime 2000 mg IV q8h; may narrow coverage pending culture results Patient with hx of intolerance to Ciprofloxacin IV antiemetics as needed May discharge back home once abx therapy determined (2) Generalized weakness: Plan: PT/OT evaluations appreciated Fall precautions (3) 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: Plan: Last A1c at 5.9% on 03/18/2024 Patient is normally on Lantus 18u HS Lantus 9 u BID while inpatient plus SSI Adjust regimen as needed (4) Leg edema: Plan: +2 pitting edema in the lower extremities bilaterally on arrival; no SOB Patient reports good compliance with Lasix and compression stockings Last echo on 02/13/2022 revealed LVEF at 60 to 65% Daily weights Strict I&O monitoring Continue Lasix (5) Paroxysmal atrial fibrillation: Plan: Rate controlled Continue metoprolol, Eliquis (6) Sleep apnea: Plan: CPAP HS (7) MGUS (monoclonal gammopathy of unknown significance): Plan Disposition: PT/OT consult placed; discharge once abx therapy determined if clinically stable Full code T2DM, heart healthy diet VTE PPx: On Eliquis Admission and Anticipated Discharge Date Admission Date: April 02, 2024 Supervising Physician Co-Signing Physician Notes Attending attestation Pt seen and examined in concert with Dr. Sree Brewer. In agreement with the documented findings as noted in the resident documentation with any exceptions or additions as noted here. No acute complaints at bedside. On examination, S1/S2 nl RRR no MCG. CTAB. Abd NT/ND BS+ve Urinary tract infection in the setting of CKDIV - follow up UCx, continue empiric abx therapy Generalized weakness - PT/OT consult Else see resident documentation as noted. Subjective Patient seen at bedside and feeling well. No new sxs or overnight events. Review of Systems Review of Systems: Per HPI. Physical Exam Physical Exam: General: AAOx3, no acute distress; pleasant affect; non-toxic appearing CV: RRR; S1/S2 normal; no murmurs/rubs/gallops; pulses intact and symmetric at radial, DP, and PT Lungs: no acute respiratory distress; symmetrical chest wall expansion; no wheezing, CTA bilateral ABD: Soft, NTP; no rebound/guarding; no distention; negative suprapubic tend erness Skin: warm, dry without signs of tenting; no cyanosis; no rashes, bruising, lesions, or erythema noted; bilateral LE with dark discoloration and scarring consistent with hx of chronic venous stasis and hx of severe pastrana Results & Data Results & Data Vital Signs (Past 12 Hours) Vital Signs Temp Pulse Resp BP Pulse Ox O2 Del Method O2 Flow Rate 04/03/24 07:22 Nasal Cannula 2 04/03/24 07:19 36.4 C L 65 18 167/77 H 98 Nasal Cannula 2 04/03/24 05:49 36.4 C L 64 18 175/74 H 100 Nasal Cannula 2 04/03/24 04:30 36.7 C 67 18 165/75 H Nasal Cannula Resident Activity Tracking Resident Involvement: Resident Care Provided Care Provided: Adult Hospital Medicine
[2024-04-04] MEDS: ALUMINUM/MAGNESIUM/SIMETH (MAALOX MAX) 30 ML UDC PO STA (01:30)
[2024-04-04 07:26] LABS: Basophils # (auto) 0.03 K/uL (0.00-0.20); Basophils % (auto) 0.3 %; Eosinophils # (auto) 0.27 K/uL (0.00-0.50); Hemoglobin 10.9 g/dl (14.0-18.0); Immature Granulocytes # (auto) 0.03 K/uL (0.01-0.20); Immature Granulocytes % (auto) 0.3 %; Lymphocytes # (auto) 0.85 K/uL (1.20-3.40); Lymphocytes % (auto) 9.4 %; Mean Corpuscular Hemoglobin 29.4 pg (25.0-34.0); Mean Corpuscular Hgb Conc 31.1 g/dL (32.0-36.0); Mean Corpuscular Volume 94.3 fL (80.0-100.0); Mean Platelet Volume 10.4 fL (9.4-12.4); Monocytes # (auto) 0.72 K/uL (0.11-0.59); Neutrophils # (auto) 7.13 K/uL (1.40-6.50); Platelet Count 239 K/uL (130-400); RDW Coefficient of Variation 15.8 % (11.5-14.5); RDW Standard Deviation 54.4 fL (36.4-46.3); Red Blood Count 3.71 M/uL (4.70-6.10); White Blood Count 9.03 K/ul (4.8-10.8)
[2024-04-04 07:38] LABS: Calcium 9.2 mg/dl (8.6-10.3); Potassium 4.3 mmol/L (3.5-5.1)
[2024-04-04 08:36] VITALS: BP 167/91; TEMP 98.6; O2SAT 93
--- NOTE | 2024-04-04 10:32 | Hospitalist Progress Note ---
Date of Service April 04, 2024 Assessment & Plan (1) Acute UTI (urinary tract infection): Plan: Patient presented on 04/02 for generalized weakness, nausea, and mild burning with urination Sxs resolved today H/o recurrent UTIs requiring hospital admission for similar symptoms; 1 episode of UTI w/ Pseudomonas w/ susceptibility to Cefepime (11/14/23) No leukocytosis; afebrile UA positive on arrival; U/Cx pending Cefepime 2000 mg IV q8h; may narrow coverage pending culture results Patient with hx of intolerance to Ciprofloxacin IV antiemetics as needed May discharge back home once abx therapy determined (2) Generalized weakness: Plan: PT/OT evaluations and patient deemed okay to return home Fall precautions (3) 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: Plan: Last A1c at 5.9% on 03/18/2024 Patient is normally on Lantus 18u HS Lantus 9 u BID while inpatient plus SSI Adjust regimen as needed (4) Leg edema: Plan: pitting edema in the lower extremities bilaterally on arrival but improved today; no SOB Patient reports good compliance with Lasix and compression stockings Last echo on 02/13/2022 revealed LVEF at 60 to 65% Daily weights Strict I&O monitoring Continue Lasix (5) Paroxysmal atrial fibrillation: Plan: Rate controlled Continue metoprolol, Eliquis (6) Sleep apnea: Plan: CPAP HS (7) MGUS (monoclonal gammopathy of unknown significance): Plan Disposition: PT/OT consult placed state he can go back to his apartment; disch arge once abx therapy determined if clinically stable Full code T2DM, heart healthy diet VTE PPx: On Eliquis Admission and Anticipated Discharge Date Admission Date: April 02, 2024 Subjective Patient seen at bedside and feeling well. No new sxs or overnight events. Review of Systems Review of Systems: Per HPI. Physical Exam Physical Exam: General: AAOx3, no acute distress; pleasant affect; non-toxic appearing CV: RRR; S1/S2 normal; no murmurs/rubs/gallops; pulses intact and symmetric at radial, DP, and PT Lungs: no acute respiratory distress; symmetrical chest wall expansion; no wheezing, CTA bilateral ABD: Soft, NTP; no rebound/guarding; no distention; negative suprapubic tenderness Skin: warm, dry without signs of tenting; no cyanosis; no rashes, bruising, lesions, or erythema noted; bilateral LE with dark discoloration and scarring consistent with hx of chronic venous stasis and hx of severe pastrana Results & Data Results & Data Vital Signs (Past 12 Hours) Vital Signs Temp Pulse Resp BP BP Pulse Ox O2 Del Method 04/04/24 08:35 37.0 C 69 18 167/91 H 93 Room Air 04/04/24 05:16 175/79 H Resident Activity Tracking Resident Involvement: Resident Care Provided Care Provided: Adult Hospital Medicine
--- NOTE | 2024-04-04 14:39 | Discharge Summary ---
Date of Service April 04, 2024 Admission HPI Per Admitting Provider Rafael is a pleasant 78-year-old male with PMH of MGUS, T2DM, HLD, HTN, BPH, CKD, paroxysmal atrial fibrillation (on Eliquis), and sleep apnea. He presented via EMS on 04/02 for nausea and generalized weakness. He reports that he began feeling unwell yesterday afternoon, and developed upset stomach, shaking, generalized weakness, and hot flashes. Patient does have a history of recurrent UTIs, and he reports that this is similar to prior episodes of UTI. Recent hospital admission at [facility] from 03/17 - 03/20 for UTI with similar presentation of symptoms. Patient went to bed feeling well, and when he woke up to use the restroom around 3:30 AM, he did develop mild burning with urination and decided to come to the hospital. Patient did not take his regular morning medicines today. He reports that he took all of the antibiotics prescribed upon discharge during his last hospital visit. He also reports that he took his regular Lantus insulin last night. He denies any fever at home. He ambulates with a walker and cane at baseline. No recent falls. Patient lives by himself. No sick contacts. He does use CPAP at night with 2L of supplemental oxygen. He reports that he watches his salt and sugar intake. No recent change in diet. He denies smoking, tobacco use, recent alcohol use. Patient is hypertensive at 185/67 at time of admission; vitals otherwise stable. ED course: Cefepime 2000 mg IV Zofran 4 mg IV NSS 1000 mL IV ROS: Patient endorses hot flashes, chills, shaking, lightheadedness when standing too fast, feeling off balance, sinus congestion, productive cough (clear), nausea, mild burning with urination, and chronic neuropathy. Patient denies fever, sweating, chest pain, SOB, pleuritic CP, abdominal pain, dry heaving, vomiting, diarrhea, dysuria, lower back pain, saddle anesthesia, or blood in the urine/stool. Admission Exam Per Admitting Provider General: no acute distress; pleasant affect; non-toxic appearing; well- nourished; cooperative; SpO2 93% on RA HEENT: normocephalic, atraumatic; no scleral icterus; PERRLA; vision and hearing grossly intact Neck: supple; trachea midline Skin: warm, dry without signs of tenting; no cyanosis; no rashes, bruising, lesions, or erythema noted CV: chest wall NTP; RRR; S1/S2 normal; no murmurs/rubs/gallops; pulses intact and symmetric at radial, DP, and PT Lungs: no acute respiratory distress; symmetrical chest wall expansion; clear breath sounds across all lung perez w/o adventitious sounds; no wheezing ABD: Soft, NTP; BS present; no rebound/guarding; no distention; negative suprapubic tenderness MSK: no tics or fasciculations; +2 pitting edema in the lower extremities bilaterally, nonerythematous Neuro: A&Ox3; normal mood and affect; fluent speech; no focal deficits; sensation intact and symmetric in lower extremities bilaterally Principal Diagnosis UTI Discharge Exam General: AAOx3, no acute distress; pleasant affect; non-toxic appearing CV: RRR; S1/S2 normal; no murmurs/rubs/gallops; pulses intact and symmetric at radial, DP, and PT Lungs: no acute respiratory distress; symmetrical chest wall expansion; no wheezing, CTA bilateral ABD: Soft, NTP; no rebound/guarding; no distention; negative suprapubic tenderness Skin: warm, dry without signs of tenting; no cyanosis; no rashes, bruising, lesions, or erythema noted; bilateral LE with dark discoloration and scarring consistent with hx of chronic venous stasis and hx of severe pastrana Discharge Data Allergies Allergy/AdvReac Type Severity Reaction Status Date / Time orange flavor Allergy Severe Gastrointestinal Verified 04/04/24 01:03 Upset orange juice Allergy Severe Gastrointestinal Verified 04/04/24 01:03 Upset orange Allergy Unknown Gastrointestinal Verified 04/04/24 01:03 Upset ciprofloxacin [From Cipro] AdvReac Intermediate Upset Verified 02/21/24 15:01 Stomach, Nausea, GI Discomfort Consultations 04/02/24 08:48 ED Decision to Admit Stat Hospital Course (1) Acute UTI (urinary tract infection): - Patient presented on 04/02 for generalized weakness, nausea, and mild burning with urination Sxs resolved yesterday - No leukocytosis and has remained afebrile - H/o recurrent UTIs requiring hospital admission for similar symptoms; 1 episode of UTI w/ Pseudomonas w/ susceptibility to Cefepime (11/14/23); prior admission resulted in Quinolone for tx due to hx of pseudomonal UTI due to inconclusive U/Cx x2 - Had U/A suggestive of infection, but U/Cx was inconclusive x2 - Was being treated with Cefepime - DDx at this time includes inadequately treated UTI due to inconclusive U/Cx versus new UTI versus Prostatitis, however lack of pain with ejaculation and no pain with VICTOR M makes the latter much less likely. - Discussed with patient regarding urine culture being inconclusive and the need to repeat it with a sample collected through straight cath to isolate causative organism. Also discussed risk of his current infection being due to a drug- resistant organism given recent tx w/ quinolone and current admission for amberly lar/same clinical picture, which could be due to bug that was not adequately treated, hence the need for repeat urine culture through straight cath. Discussed other options such as doing repeat culture with straight cath sample then treating with quinolones and adjusting based on results, or less preferably, treating with quinolones w/o doing repeat urine culture and following up with PCP. Discussed risks of the last options which includes treating with abx that is not appropriate for his current infection given his elevated risk for multi-drug resistant bacteria, and subsequent clinical worse hadley. Patient expressed understanding of the options presented to him. After shared decision making, patient opted for treating with Ciprofloxacin and not repeating urine culture. - Discussed how Ciprofloxacin would provide better coverage in a UTI and have some coverage for pseudomonas, but given hx of GI adverse effects, patient did not wish to take this abx. Therefore will send script for Levofloxacin 500 mg today, followed by 250 mg daily to adjust for current renal function (home pack given prior to discharge). Sent script for 7 days of therapy, however, if poor med response, may consider repeat U/A or U/Cx in follow up visit versus extension of abx therapy should this be suspicious for prostatitis. - Patient understood all that was discussed and all questions were answered. 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 Total Time Total Time Spent Total Time Spent (In Minutes): . Discharge Plan Discharge Items Patient Disposition: Home - Self-Care Reason For Visit: UTI Discharge Diagnosis: UTI Activity: Per Instructions section Non-emergency contact: Primary Care Provider Call non-emergency contact if: your symptoms worsen and your temperature is above 101.5 Follow-up/Referrals: [facility] [Primary Care Provider] - Diet: Low Sodium (2gm) Addtl Attending Provider Instructions: Urinary Tract Infection: You were seen in the hospital for urinary symptoms. We started you on antibiotics and your symptoms improved. Unfortunately we were unable to get a urine sample to grow what kind of bacteria were in your urine. You did grow a resistant organism called pseudomonas in the past. Ideally we would have culture data prior to choosing an oral antibiotics. With shared decision making you declined a straight cath and repeat culture. We decided to send a medication called Levofloxacin to take once daily for 7 days or longer depending on what you discuss with your primary care provider in your post-discharge follow up. Since most pharmacies are closed today and tomorrow we did provide you with a home pack to tide you over until the . Your last day of antibiotics will be in the evening of the . If symptoms worsen please return to care. Hypertension: Your blood pressure was pretty high while you were here in the hospital. We increased your dose of lisinopril to 20 mg. Please follow up with your primary care doctor to discuss further changes to your antihypertensive regimen. Pending Studies at Discharge: No Stand-Alone Forms: My [employer], Smoking Cessation Medications and DC Order Prescriptions: New lisinopril 20 mg Tablet 20 mg PO DAILY Qty: 30 0RF levofloxacin 500 mg tablet 500 mg PO DAILY Qty: 7 0RF Continued apixaban 5 mg tablet 5 mg PO BID cholecalciferol (vitamin D3) 25 mcg (1,000 unit) capsule 25 mcg PO QAM folic acid 1 mg tablet 1 mg PO QAM levothyroxine 88 mcg capsule 88 mcg PO DAILYBB metoprolol succinate 25 mg tablet extended release 24 hr 25 mg PO DAILY furosemide [Lasix] 20 mg tablet 20 mg PO DAILY Qty: 90 2RF Hold Instructions: Resume on 03/23/24. Provider's Order fluticasone propionate 50 mcg/actuation spray,suspension 1 spray intranasal BID PRN (Reason: Congestion) pantoprazole 40 mg tablet,delayed release (DR/EC) 40 mg PO DAILY PRN (Reason: Acid Reflux) tamsulosin 0.4 mg Capsule 0.4 mg PO HS Qty: 30 0RF phenol 1.4 % aerosol,spray 2 spray mucous membrane Q4H PRN (Reason: sore throat) Qty: 20 0RF insulin glargine [Lantus Solostar U-100 Insulin] 100 unit/mL (3 mL) insulin pen 18 unit subcut HS trazodone 50 mg tablet 50 mg PO HS PRN (Reason: Sleep) ferrous sulfate [FeroSul] 325 mg (65 mg iron) tablet 325 mg PO QAM gabapentin 100 mg capsule 100 mg PO QID PRN (Reason: Nerve Pain) ascorbic acid (vitamin C) [Vitamin C] 500 mg tablet 500 mg PO DAILY Discontinued lisinopril 10 mg tablet 10 mg PO DAILY Qty: 30 6RF Hold Instructions: Resume on 03/23/24. Provider's Order Discharge Orders: Discharge Order (Routine); Ordered 04/04/24 Ordered By: Stephanie Ramirez/Other Patient Handouts: UTIs, When to Use Antibiotics Admission Data Admit Date/Time: 04/02/24 09:39 Attending Provider: Onofre Pappas Admit Provider: Toño Saunders Primary Care Provider: [facility] Other Providers: Toño Saunders Other Interventions: Discharge Summary Assessment (RN) Last Done: 04/04/24 14:53 Supervising Physician Co-Signing Physician Notes Attending attestation Pt seen and examined in concert with Dr. Sree Brewer. In agreement with the documented findings as noted in the resident documentation with any exceptions or additions as noted here. No acute complaints at time of examination. Reviewed clinical results of inconclusive urine cultures and potential course of care, patient declines further w/u with shared decisionmaking and would prefer empiric treatment with fluoroquinolone at home with close follow up after discussion of risks/benefits as noted. On examination, S1/S2 nl RRR no MCG. CTAB. 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 Transition to PO levofloxacin (declines ciprofloxacin due to history of GI upset) and close outpatient follow up as no conclusive culture was reached and with precautions for worsening/changing sx. Lower extremity edema, chronic - last echo as noted above. Continue compression and furosemide with precautions re: weight and worsening. Else see resident documentation as noted Total attending physician time spent with this patient's care on the day of discharge: 38 minutes. Resident Activity Tracking Resident Involvement: Resident Care Provided Care Provided: Adult Hospital Medicine
[2024-04-04 14:42] VITALS: PULSE 64
[2024-04-04] MEDS: CIPROFLOXACIN 500MG HOME PACK PO ONE (14:46)
[2024-04-04] MEDS ORDERED: levoFLOXacin 250 MG TABLET PO SCH ×3 (15:45→16:00)
--- NOTE | 2024-04-04 16:12 | Electrocardiogram Report ---
Test Reason : Blood Pressure : */* mmHG Vent. Rate : 63 BPM Atrial Rate : 63 BPM P-R Int : 248 ms QRS Dur : 110 ms QT Int : 418 ms P-R-T Axes : 41 -12 61 degrees QTcB Int : 427 ms Sinus rhythm with 1st degree A-V block Incomplete right bundle branch block Poor R wave progression, consider anterior [place] vs. lead placement vs. LVH Borderline ECG When compared with ECG of 17-Mar-2024 07:38, T wave inversion no longer evident in Lateral leads Confirmed by Onofre Christiansen ([id number]) on 04/04/2024 4:12:07 PM Referred By: REFERRED SELF Confirmed By: Onofre Christiansen
== END 2024-04-04 16:06 | disposition home or self-care (01) | DRG 690 ==
LOC: ED 03:57 → SUATTDRO 09:39 → 3N 09:39
DX: E78.5 Hyperlipidemia, unspecified; E11.22 Type 2 diabetes mellitus with diabetic chronic kidney disease; I12.9 Hypertensive chronic kidney disease with stage 1 through stage 4 chronic kidney disease, or unspecified chronic kidney disease; Z79.01 Long term (current) use of anticoagulants; G47.30 Sleep apnea, unspecified; I48.0 Paroxysmal atrial fibrillation; D47.2 Monoclonal gammopathy; Z79.4 Long term (current) use of insulin; N18.4 Chronic kidney disease, stage 4 (severe); N39.0 Urinary tract infection, site not specified

== ENCOUNTER 2024-05-02 08:02 | Inpatient (IN) ==
--- NOTE | 2024-05-02 08:12 | Emergency Department Note ---
Impression & Plan Complicated urinary tract infection, Generalized weakness ED Provider Note HISTORY OF PRESENT ILLNESS: Patient is a 78-year-old male presenting with shakiness and dysuria. Patient reports "as of 9 UTI is coming back." He states that he got up this morning around 4 AM to get up to go to the bathroom and he felt very weak and shaky. States that he had subjective chills and hot flashes and when he went to the bathroom he had a slight burning with urination. He states that the symptoms continued throughout the morning, prompting him to call 911. He denies any abdominal pain. He reports that he feels slightly nauseous and sick to his stomach. Denies any chest pain or shortness of breath. Denies any diarrhea. Reports his last round of antibiotics was when he was discharged from the hospital for his previous UTI at the end of March 2024. ROS: as above PHYSICAL EXAM: Constitutional: Patient appears in no acute distress. Morbidly obese HENT: Head: Normocephalic and atraumatic. Eyes: EOMI, PERRL Mouth/Throat: Mucous membranes moist. Neck: Trachea midline. Neck supple. Cardiovascular: RRR, No murmurs, rubs or gallops. Intact distal pulses. Pulmonary/Chest: No respiratory distress. Breath sounds clear and equal bilaterally. No wheezes or rales. Abdominal: Abdomen soft, no tenderness, rebound or guarding. Musculoskeletal: No edema, tenderness or deformity noted. Skin: Warm and dry. No rash, erythema, pallor or cyanosis Psychiatric: Appropriate mood and affect for situation. Neurological: Alert and keenly responsive. CN II-XII grossly intact, moving all extremities equally and fully. MDM: - Vitals signs showed hypertension - History obtained via patient. History as above. - Chronic conditions affecting care: MGUS; DM-2; HTN; HLD; BPH; CKD; paroxysmal Afib (on Eliquis); hypothyroidism - Differential diagnoses include, but are not limited to: ACS; pneumonia; viral syndrome; UTI; CVA - Order placed for continuous cardiac monitoring. At this time, monitor showed rate of 75 bpm with normal sinus rhythm, per my interpretation. - External medical records reviewed. Discharge summary dated 03/31/2024 was reviewed. Patient was admitted that time for a urinary tract infection. - EKG interpreted by myself showed normal sinus rhythm. Rate 74 bpm. QT 406. No acute ischemic changes - Laboratory workup interpreted by myself showed normal WBC; stable electrolytes; CKD; normal TSH - UA showed evidence of infection. On review of chart, patient has grown Pseudomonas that is pansensitive in the past. Given 2 g IV Rocephin - CXR negative for pneumonia, per my interpretation. - Discussed results with the patient. He has grown Pseudomonas in the past that is pansensitive. Offered to discharge him on oral ciprofloxacin, but the patient reports that "I cannot take that medication orally as it tears me up." He reports he lives alone and does not feel comfortable being discharged home with his symptoms. Will discuss case with hospitalist service. - Discussion was had with watch case polisher about patient's case and need for admission - Hospitalist consulted for admission - Patient admitted to [facility] hospitalist service for further evaluation and management. 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 Morbid obesity with BMI of 45.0-49.9, adult Chronic kidney disease, stage 4 (severe) (Acute) Hypothyroidism (Acute) Paroxysmal atrial fibrillation 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) Hyperlipidemia Essential hypertension (Acute) BPH w/o urinary obs/LUTS Age-related nuclear cataract, right eye Surgical History H/O skin graft History of arthroplasty of right ankle No significant past surgical history Family History Grandfather (Maternal) Diabetes Grandfather (Paternal) Arteriosclerosis Stroke Mother Hypertension Father Stomach ulcer Denies family history of Ovarian cancer Prostate cancer Breast cancer Lung cancer Colorectal cancer Social History Smoking Status: Never smoker Second Hand Exposure: No; Do You Dip or Chew Tobacco: No; Hx Alcohol Use: No Hx Substance Use: No Preferred Language: Romansh Communication Ability: Effective Locomotive Engineer Required: No Beliefs That Will Affect Care: None marital status: Unknown Current Living Situation: Alone Current Living Situation Comment: studio apartment Feels Safe at Home: Yes Diet: regular during the past year weight has: remained stable Dental Care, Regularly: No Physical Activity Frequency: Does not Exercise Seatbelt Use: always Sunscreen Use: No Do you think of yourself as: straight/heterosexual Gender Identity: Male Assistive Devices: Cane and Walker Allergies Allergies Allergy/AdvReac Type Severity Reaction Status Date / Time orange flavor Allergy Severe Gastrointestinal Verified 04/21/24 15:16 Upset orange juice Allergy Severe Gastrointestinal Verified 04/21/24 15:16 Upset orange Allergy Unknown Gastrointestinal Verified 04/21/24 15:16 Upset ciprofloxacin [From Cipro] AdvReac Intermediate Upset Verified 04/21/24 15:16 Stomach, Nausea, GI Discomfort Home Meds Home Medications Medication Instructions Recorded Confirmed apixaban 5 mg tablet 5 mg PO BID 04/25/21 05/02/24 cholecalciferol (vitamin D3) 25 25 mcg PO QAM 04/25/21 05/02/24 mcg (1,000 unit) capsule folic acid 1 mg tablet 1 mg PO QAM 04/25/21 05/02/24 levothyroxine 88 mcg capsule 88 mcg PO DAILYBB 04/25/21 05/02/24 ferrous sulfate 325 mg (65 mg 325 mg PO QAM 06/30/21 05/02/24 iron) tablet (FeroSul) gabapentin 100 mg capsule 100 mg PO QID PRN Nerve Pain 06/30/21 05/02/24 trazodone 50 mg tablet 50 mg PO HS PRN Sleep 06/30/21 05/02/24 insulin glargine 100 unit/mL (3 18 unit subcut HS 05/29/22 05/02/24 mL) subcutaneous pen (Lantus Solostar U-100 Insulin) fluticasone propionate 50 1 spray intranasal BID PRN 08/06/23 05/02/24 mcg/actuation nasal Congestion spray,suspension metoprolol succinate 25 mg 25 mg PO DAILY 08/06/23 05/02/24 tablet,extended release 24 hr pantoprazole 40 mg tablet,delayed 40 mg PO DAILY PRN Acid Reflux 08/06/23 05/02/24 release ascorbic acid (vitamin C) 500 mg 500 mg PO DAILY 11/17/23 05/02/24 tablet (Vitamin C) Previous Rx's Medication Instructions Recorded tamsulosin 0.4 mg capsule 0.4 mg PO HS #30 caps 02/18/22 furosemide 20 mg tablet (Lasix) 20 mg PO DAILY #90 tabs 08/11/23 lisinopril 20 mg tablet 20 mg PO DAILY #30 tabs 04/04/24 Results & Data (ED) Vital Signs Vital Signs - 24 hr 05/02/24 08:10 05/02/24 08:20 05/02/24 08:21 Temperature 36.6 C Temperature Source Oral Pulse Rate 76 76 Pulse Rate [Apical] 76 Pulse Rhythm Regular Pulse Strength Normal Pulse Strength [Apical] Normal Respiratory Rate 18 19 19 Respiratory Effort / Characteristics Non-Labored Spontaneous Non-Labored Spontaneous Respiratory Depth Normal Normal Respiratory Pattern Regular Regular Blood Pressure [Right Arm] 182/100 H Blood Pressure Mean [Right Arm] 127 Pulse Oximetry 98 98 99 Oxygen Delivery Method Room Air Room Air Room Air Sepsis Recent Fever Within 48 Hours No Sepsis New/Unexplained Change in Mental Status No Sepsis Action Taken by Nursing No Action Required 05/02/24 08:33 05/02/24 10:18 Temperature Temperature Source Pulse Rate 74 Pulse Rate [Apical] 74 Pulse Rhythm Pulse Strength Pulse Strength [Apical] Normal Respiratory Rate 19 Respiratory Effort / Characteristics Non-Labored Spontaneous Respiratory Depth Normal Respiratory Pattern Blood Pressure [Right Arm] 185/79 H Blood Pressure Mean [Right Arm] 114 Pulse Oximetry 98 Oxygen Delivery Method Room Air Sepsis Recent Fever Within 48 Hours Sepsis New/Unexplained Change in Mental Status Sepsis Action Taken by Nursing Laboratory Data 05/02/24 08:32 05/02/24 08:32 Lab Results 05/02/24 05/02/24 Range/Units 08:32 08:58 WBC 8.19 (4.8-10.8) K/ul RBC 4.08 L (4.70-6.10) M/uL Hgb 12.0 L (14.0-18.0) g/dl Hct 38.2 L (42.0-52.0) % MCV 93.6 (80.0-100.0) fL MCH 29.4 (25.0-34.0) pg MCHC 31.4 L (32.0-36.0) g/dL RDW Std Deviation 53.2 H (36.4-46.3) fL RDW Coeff of Yolanda 15.5 H (11.5-14.5) % Plt Count 256 (130-400) K/uL MPV 10.0 (9.4-12.4) fL Immature Gran % (Auto) 0.5 % Neut % (Auto) 80.2 % Lymph % (Auto) 9.8 % [place] % (Auto) 6.3 % Eos % (Auto) 2.8 % Baso % (Auto) 0.4 % Neut # (Auto) 6.57 H (1.40-6.50) K/uL Lymph # (Auto) 0.80 L (1.20-3.40) K/uL [place] # (Auto) 0.52 (0.11-0.59) K/uL Eos # (Auto) 0.23 (0.00-0.50) K/uL Baso # (Auto) 0.03 (0.00-0.20) K/uL Immature Gran # (Auto) 0.04 (0.01-0.20) K/uL Sodium 141 (136-145) mmol/L Potassium 4.6 (3.5-5.1) mmol/L Chloride 107 (98-107) mmol/L Carbon Dioxide 28 (21-32) mmol/L Anion Gap 6 (3-11) BUN 33 H (6-23) mg/dl Creatinine 2.12 H (0.6-1.4) mg/dl Est Cr Clr Drug Dosing 41.1 ml/min eGFR 31.27 BUN/Creatinine Ratio 15.6 (10-20) Glucose 115 H (70-99(Fasting)) mg/dl Calcium 9.8 (8.6-10.3) mg/dl Magnesium 2.0 (1.7-2.4) mg/dl Total Bilirubin 0.6 (0.2-1.0) mg/dl AST 12 L (13-39) U/L ALT 8 (7-52) U/L Alkaline Phosphatase 55 (34-104) U/L Total Protein 7.7 (6.0-8.3) gm/dl Albumin 3.8 (3.4-5.0) gm/dl Globulin 3.9 (2.5-4.0) gm/dl Albumin/Globulin Ratio 1.0 (0.9-2) TSH 2.906 (0.300-4.500) uIu/ml Urine Color Yellow Urine Appearance Cloudy A (Clear) Urine pH 6.5 (4.5-7.5) Ur Specific [place] 1.010 (1.000-1.030) Urine Protein Trace H (Negative) Urine Glucose (UA) Negative (Negative) Urine Ketones Negative (Negative) Urine Blood Trace H (Negative) Urine Nitrite Negative (Negative) Urine Bilirubin Negative (Negative) Urine Urobilinogen Negative (Negative) Ur Leukocyte Esterase 3+ H (Negative) Urine WBC (Auto) >50 H (0-5) /hpf Urine RBC (Auto) 0-2 (0-2) /hpf U Hyaline Cast (Auto) 3-5 H (0-2) /lpf U Epithel Cells (Auto) 0-2 (0-2) /hpf Urine Bacteria (Auto) 2+ H (None Seen) Administered Medications Discontinued Medications Ceftriaxone Sodium (Rocephin) 2,000 mg in 50 mls @ 100 mls/hr IV NOW STA Stop: 05/02/24 11:24 Last Infusion: 05/02/24 11:53 Dose: Infused Documented By: Admin: 05/02/24 11:10 Dose: 100 mls/hr Documented By: VINICIO Imaging Data Radiologist's Impression: Chest X-Ray 05/02/24 08:08 XR chest 1V portable CLINICAL HISTORY: weakness COMPARISON STUDY: Chest CT February 12, 2022. Chest radiograph March 17, 2024. FINDINGS: No pneumothorax or pleural effusion is present. Cardiomegaly is unchanged. There is no evidence for pulmonary edema. Mediastinal contours are stable. Left lung densities remain unchanged and favor scarring or atelectasis. There is no consolidation to suggest pneumonia. IMPRESSION: 1. No acute cardiopulmonary findings. 2. No change in appearance of the chest. Stable left lung densities which favor scarring or atelectasis. ACT 112: Negative or not required by law. Electronically signed by: Tyree Hall M.D. 05/02/2024 8:45 AM Discharge Plan Visit Data Chief Complaint: Weakness Stated Complaint: URINARY SX, WEAKNESS ED Provider: Amina Corcoran Discharge Problem: Complicated urinary tract infection, Generalized weakness Forms Stand Alone Forms: [facility] Prescriptions Prescriptions: No Action apixaban 5 mg tablet 5 mg PO BID cholecalciferol (vitamin D3) 25 mcg (1,000 unit) capsule 25 mcg PO QAM folic acid 1 mg tablet 1 mg PO QAM levothyroxine 88 mcg capsule 88 mcg PO DAILYBB metoprolol succinate 25 mg tablet extended release 24 hr 25 mg PO DAILY furosemide [Lasix] 20 mg tablet 20 mg PO DAILY Qty: 90 2RF Hold Instructions: Resume on 03/23/24. Provider's Order fluticasone propionate 50 mcg/actuation spray,suspension 1 spray intranasal BID PRN (Reason: Congestion) pantoprazole 40 mg tablet,delayed release (DR/EC) 40 mg PO DAILY PRN (Reason: Acid Reflux) tamsulosin 0.4 mg Capsule 0.4 mg PO HS Qty: 30 0RF insulin glargine [Lantus Solostar U-100 Insulin] 100 unit/mL (3 mL) insulin pen 18 unit subcut HS trazodone 50 mg tablet 50 mg PO HS PRN (Reason: Sleep) ferrous sulfate [FeroSul] 325 mg (65 mg iron) tablet 325 mg PO QAM gabapentin 100 mg capsule 100 mg PO QID PRN (Reason: Nerve Pain) ascorbic acid (vitamin C) [Vitamin C] 500 mg tablet 500 mg PO DAILY lisinopril 20 mg Tablet 20 mg PO DAILY Qty: 30 0RF Referrals Referrals: Elizabeth Chilel MD [Primary Care Provider] -
--- NOTE | 2024-05-02 08:46 | XRay Report ---
XR chest 1V portable CLINICAL HISTORY: weakness COMPARISON STUDY: Chest CT February 12, 2022. Chest radiograph March 17, 2024. FINDINGS: No pneumothorax or pleural effusion is present. Cardiomegaly is unchanged. There is no evid ence for pulmonary edema. Mediastinal contours are stable. Left lung densities remain unchanged and f avor scarring or atelectasis. There is no consolidation to suggest pneumonia. IMPRESSION: 1. No acute cardiopulmonary findings. 2. No change in appearance of the chest. Stable left lung densities which favor scarring or atelectas is. ACT 112: Negative or not required by law. Electronically signed by: Tyree Hall M.D. 05/02/2024 8:45 AM
[2024-05-02 09:13] LABS: Basophils # (auto) 0.03 K/uL (0.00-0.20); Basophils % (auto) 0.4 %; Eosinophils # (auto) 0.23 K/uL (0.00-0.50); Eosinophils % (auto) 2.8 %; Hematocrit (blood only) 38.2 % (42.0-52.0); Immature Granulocytes # (auto) 0.04 K/uL (0.01-0.20); Immature Granulocytes % (auto) 0.5 %; Lymphocytes % (auto) 9.8 %; Mean Corpuscular Hemoglobin 29.4 pg (25.0-34.0); Mean Corpuscular Hgb Conc 31.4 g/dL (32.0-36.0); Mean Corpuscular Volume 93.6 fL (80.0-100.0); Monocytes # (auto) 0.52 K/uL (0.11-0.59); Monocytes % (auto) 6.3 %; Neutrophils # (auto) 6.57 K/uL (1.40-6.50); Neutrophils % (auto) 80.2 %; Platelet Count 256 K/uL (130-400); RDW Coefficient of Variation 15.5 % (11.5-14.5); RDW Standard Deviation 53.2 fL (36.4-46.3); Red Blood Count 4.08 M/uL (4.70-6.10); White Blood Count 8.19 K/ul (4.8-10.8)
[2024-05-02 09:29] LABS: Appearance Urine Cloudy (Clear); Bacteria Urine Automated 2+ (None Seen); Bilirubin Urine Negative (Negative); Blood Urine Trace (Negative); Color Urine Yellow; Epithelial Cell Urine Auto 0-2 /hpf (0-2); Glucose Urine UA Negative (Negative); Ketones Urine Negative (Negative); Leukocyte Esterase Urine 3+ (Negative); Nitrite Urine Negative (Negative); Protein Urine Trace (Negative); RBC Urine Automated 0-2 /hpf (0-2); Urobilinogen Urine Negative (Negative); WBC Urine Automated >50 /hpf (0-5); pH Urine 6.5 (4.5-7.5)
[2024-05-02 09:33] LABS: Albumin Level 3.8 gm/dl (3.4-5.0); BUN Creatinine Ratio 15.6 (10-20); Bilirubin,Total 0.6 mg/dl (0.2-1.0); Calcium 9.8 mg/dl (8.6-10.3); Creatinine Clr Calc Pharmacy 41.1 ml/min; Globulin 3.9 gm/dl (2.5-4.0); Potassium 4.6 mmol/L (3.5-5.1); Total Protein 7.7 gm/dl (6.0-8.3)
[2024-05-02 09:47] LABS: Thyroid Stimulating Hormone 2.906 uIu/ml (0.300-4.500)
[2024-05-02] MEDS: cefTRIAXone SODIUM 2,000 MG/50 ML BAG IV STA (11:10)
--- NOTE | 2024-05-02 11:39 | History & Physical Report ---
Date of Service May 02, 2024 Assessment & Plan (1) Complicated urinary tract infection: Plan: patient with h/o recurrent UTIs nearly all urine cultures dating back several years with pansensitive pseudomonas he has been hospitalized for UTI as recently as 03/2024 it appears he is colonized with pseudomonas since it is nearly always present on serial urine cultures at this point, however, he is symptomatic with dysuria, chills, etc. most recent urine cx was 04/25 showing pansensitive pseudomonas - thus, plan was to use renally adjusted IV cipro however, 10 minutes into the cipro infusion while awaiting admission he developed rash & pruritis of the right arm where the cipro was infusing thus, cipro stopped unfortunately we are only left with IV agents to Rx his UTI and therefore will use cefepime 2mg IV q12h a repeat urine cx was sent from the ER but suspect it will probably grow the pseudomonas again as well plan to obtain CT abd/pelvis to r/o obstructing kidney stones and other urinary tract pathology that would set him up for UTI if negative then BPH and other causes of incomplete bladder emptying could be contributing with his chills and other systemic symptoms will also obtain COVID/flu/RSV swab to be complete as well as blood cultures given the recurrent pseudomonas in the urine - could he also have underlying chronic prostatitis? (2) Hypertension: Plan: cont home meds including metoprolol, lisinopril, and flomax (latter is primarily for BPH) hold lasix if additional BP control is needed either titrate metoprolol or add something like amlodipine (3) Hypothyroidism: Plan: TSH 2.9 cont synthroid (4) Paroxysmal atrial fibrillation: Plan: place on telemetry examines in NSR cont Eliquis 5mg BID cont metoprolol succ 25mg daily (5) BPH w/o urinary obs/LUTS: Plan: cont flomax likely contributing to increased UTI risk with the recurrent pseudomonas - does he have underlying prostatitis? (6) Anemia due to chronic kidney disease: Plan: H/H acceptable today at , respectively (7) Morbid obesity with BMI of 45.0-49.9, adult: Plan: BMI 47.9 (8) Type 2 diabetes mellitus with obesity: Plan: Hba1c 5.9% in 03/2024 cont home lantus add novolog for meal coverage - CF 50, carb ratio 1:20 (9) CKD stage 3b, GFR 30-44 ml/min: Plan: baseline CrCl ~40 BMP in am tomorrow (10) DVT prophylaxis: Plan: Eliquis 5mg BID (11) Recurrent UTI: Plan: see #1 above (12) Drug reaction: Plan: to IV cipro while in ER had problems in the past tolerating cipro due to nausea, etc. but today he developed kerline sidney rash & pruritis Plan request PT consult while here History of Present Illness Chief Complaint: chills, nausea, dysuria Primary Care Provider: Elizabeth Chilel MD Pleasant 78yo male with history of recurrent UTIs, CKD stage 3b with baseline creatinine 2 to 2.2, HTN, T2DM, morbid obesity, PAF on Eliquis, hypothyroidism, and BPH presents after waking up about 0430 this morning with hot/cold chills, nausea, mild dysuria, and simply feeling unwell. He states he was feeling well yesterday but when he went to bed last pm he felt a "little off" and weak. Denies any acute URI symptoms or cough. Denies vomiting. No discrete fever. No hematuria. No myalgias/arthralgias. At baseline he wakes up about twice nightly to void. He had an outpatient follow-up appointment with his PCP and gave a urine sample for culture as test of cure from his UTI in 03/2024. Urine culture from 04/25 grew pansensitive pseudomonas. A review of his record shows numerous urine cultures with pansensitive pseudomonas. In the ER a dose of rocephin was given, and he voiced concerns about going home as he felt too weak (and he lives alone). Allergies Allergy/AdvReac Type Severity Reaction Status Date / Time orange flavor Allergy Severe Gastrointestinal Verified 04/21/24 15:16 Upset orange juice Allergy Severe Gastrointestinal Verified 04/21/24 15:16 Upset orange Allergy Unknown Gastrointestinal Verified 04/21/24 15:16 Upset ciprofloxacin [From Cipro] AdvReac Intermediate Upset Verified 05/02/24 13:35 Stomach, Nausea, GI Discomfort Home Medications Medication Instructions Recorded Confirmed Type apixaban 5 mg tablet 5 mg PO BID 04/25/21 05/02/24 History cholecalciferol (vitamin D3) 25 25 mcg PO QAM 04/25/21 05/02/24 History mcg (1,000 unit) capsule folic acid 1 mg tablet 1 mg PO QAM 04/25/21 05/02/24 History levothyroxine 88 mcg capsule 88 mcg PO DAILYBB 04/25/21 05/02/24 History ferrous sulfate 325 mg (65 mg 325 mg PO QAM 06/30/21 05/02/24 History iron) tablet (FeroSul) gabapentin 100 mg capsule 100 mg PO QID PRN Nerve Pain 06/30/21 05/02/24 History trazodone 50 mg tablet 50 mg PO HS PRN Sleep 06/30/21 05/02/24 History tamsulosin 0.4 mg capsule 0.4 mg PO HS #30 caps 02/18/22 05/02/24 Rx insulin glargine 100 unit/mL (3 18 unit subcut HS 05/29/22 05/02/24 History mL) subcutaneous pen (Lantus Solostar U-100 Insulin) fluticasone propionate 50 1 spray intranasal BID PRN 08/06/23 05/02/24 History mcg/actuation nasal Congestion spray,suspension metoprolol succinate 25 mg 25 mg PO DAILY 08/06/23 05/02/24 History tablet,extended release 24 hr pantoprazole 40 mg tablet,delayed 40 mg PO DAILY PRN Acid Reflux 08/06/23 05/02/24 History release furosemide 20 mg tablet (Lasix) 20 mg PO DAILY #90 tabs 08/11/23 05/02/24 Rx ascorbic acid (vitamin C) 500 mg 500 mg PO DAILY 11/17/23 05/02/24 History tablet (Vitamin C) lisinopril 20 mg tablet 20 mg PO DAILY #30 tabs 04/04/24 05/02/24 Rx dulaglutide 0.75 mg/0.5 mL 0.75 mg (0.5 mL) subcut .weekly #2 05/02/24 Rx subcutaneous pen injector mL Past Med/Surg History Problem List (Updated 05/03/24 @ 05:26 by Toño Travis MD) Drug reaction DVT prophylaxis CKD stage 3b, GFR 30-44 ml/min Type 2 diabetes mellitus with obesity Morbid obesity with BMI of 45.0-49.9, adult Anemia due to chronic kidney disease BPH w/o urinary obs/LUTS Paroxysmal atrial fibrillation Hypothyroidism Hypertension Generalized weakness (Acute) Complicated urinary tract infection (Acute) Weakness (Acute) Bilateral leg edema Medical History (Updated 05/03/24 @ 05:26 by Toño Travis MD) Recurrent UTI Cholelithiasis Sleep apnea 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 [place] Vitamin D deficiency 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 Chronic kidney disease, stage 4 (severe) Hyperlipidemia Age-related nuclear cataract, right eye Surgical History (Updated 05/02/24 @ 12:30 by Toño Travis MD) H/O skin graft 2nd and 3rd degree pastrana on body 1994 History of arthroplasty of right ankle has 6 pins in it, had a Fx Family History (Updated 05/02/24 @ 12:31 by Toño Travis MD) Grandfather (Maternal) Diabetes Grandfather (Paternal) Arteriosclerosis Stroke Mother Hypertension Sepsis age 79 Father Stomach ulcer Myocardial infarction age 75 Denies family history of Ovarian cancer Prostate cancer Breast cancer Lung cancer Colorectal cancer Social History (Updated 05/02/24 @ 12:32 by Toño Travis MD) Smoking Status: Never smoker Second Hand Exposure: No; Do You Dip or Chew Tobacco: No; Tobacco Cessation Education Requested by Patient: No Hx Alcohol Use: No Hx Substance Use: No Preferred Language: Guyanese Communication Ability: Effective Knobber Required: No Beliefs That Will Affect Care: None marital status: / Current Living Situation: Alone Current Living Situation Comment: stud apartment 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; 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 How many Children do You have: 1 Feels Safe at Home: Yes Safety Concerns: Feels Safe At This Time Diet: regular during the past year weight has: remained stable Dental Care, Regularly: No Physical Activity Frequency: Does not Exercise Seatbelt Use: always Sunscreen Use: No Do you think of yourself as: straight/heterosexual Gender Identity: Male Assistive Devices: Cane, Glasses, Hearing Aid - Bilateral and Walker Assistive Devices Comment: CPAP when at home Review of Systems Review of Systems: gen - hot/cold chills starting early this am; no discrete fever; appetite is a little off eyes - no vision changes HENT - chronic sinus issues but no acute URI CV - no chest pain pulm - no dyspnea or cough GI - mild nausea this am but no vomiting; no flank or abdominal pain - mild dysuria today but no hematuria; baseline nocturia; some issues with stream intermittently on chronic basis musculo - no myalgias or arthralgias endo - BSGs <150 at home neuro - no headache skin - chronic rash on shins Physical Exam Physical Exam: gen - morbidly obese, NAD, nontoxic eyes - PERRL HENT - MMM, no lesions neck - no JVD, supple heart - RRR, s1 s2, no murmur lungs - CTA b/l abd - soft NT ND BS+; no flank tenderness b/l ext - <1+ edema b/l shins and ankles; stasis changes and/or old skin grafts both shins vascular - pulses b/l feet 2+ neuro - strength 5/5 x 4 exts psych - a/o x 3 -- called by nursing staff that about 10 minutes into the cipro infusion he was complaining of itching & rash in the right arm upon arrival there is indeed a rash on the distal right arm extending from elbow to wrist there are small hives in a linear fashion (he had been scratching the arm) cipro infusion stopped Results & Data Results & Data Vital Signs (Past 12 Hours) Vital Signs Temp Pulse Pulse Resp BP Pulse Ox O2 Del Method 05/02/24 10:18 74 19 185/79 H 98 Room Air 05/02/24 08:33 74 05/02/24 08:21 76 19 99 Room Air 05/02/24 08:20 76 19 182/100 H 98 Room Air 05/02/24 08:10 36.6 C 76 18 98 Room Air Laboratory Results Laboratory Results - last 24 hr 05/02/24 05/02/24 05/02/24 08:32 08:58 Unknown WBC 8.19 RBC 4.08 L Hgb 12.0 L Hct 38.2 L MCV 93.6 MCH 29.4 MCHC 31.4 L RDW Std Deviation 53.2 H RDW Coeff of Yolanda 15.5 H Plt Count 256 MPV 10.0 Immature Gran % (Auto) 0.5 Neut % (Auto) 80.2 Lymph % (Auto) 9.8 [place] % (Auto) 6.3 Eos % (Auto) 2.8 Baso % (Auto) 0.4 Neut # (Auto) 6.57 H Lymph # (Auto) 0.80 L [place] # (Auto) 0.52 Eos # (Auto) 0.23 Baso # (Auto) 0.03 Immature Gran # (Auto) 0.04 Sodium 141 Potassium 4.6 Chloride 107 Carbon Dioxide 28 Anion Gap 6 BUN 33 H Creatinine 2.12 H Est Cr Clr Drug Dosing 41.1 eGFR 31.27 BUN/Creatinine Ratio 15.6 Glucose 115 H Calcium 9.8 Magnesium 2.0 Total Bilirubin 0.6 AST 12 L ALT 8 Alkaline Phosphatase 55 Total Protein 7.7 Albumin 3.8 Globulin 3.9 Albumin/Globulin Ratio 1.0 TSH 2.906 Urine Color Yellow Urine Appearance Cloudy A Urine pH 6.5 Ur Specific [place] 1.010 Urine Protein Trace H Urine Glucose (UA) Negative Urine Ketones Negative Urine Blood Trace H Urine Nitrite Negative Urine Bilirubin Negative Urine Urobilinogen Negative Ur Leukocyte Esterase 3+ H Urine WBC (Auto) >50 H Urine RBC (Auto) 0-2 U Hyaline Cast (Auto) 3-5 H U Epithel Cells (Auto) 0-2 Urine Bacteria (Auto) 2+ H SARS-CoV-2 (PCR) Pending Influenza Type A (PCR) Pending Influenza Type B (PCR) Pending RSV (RT-PCR) Pending Diagnostic Findings Chest X-Ray 05/02/24 08:08 XR chest 1V portable CLINICAL HISTORY: weakness COMPARISON STUDY: Chest CT February 12, 2022. Chest radiograph March 17, 2024. FINDINGS: No pneumothorax or pleural effusion is present. Cardiomegaly is unchanged. There is no evidence for pulmonary edema. Mediastinal contours are stable. Left lung densities remain unchanged and favor scarring or atelectasis. There is no consolidation to suggest pneumonia. IMPRESSION: 1. No acute cardiopulmonary findings. 2. No change in appearance of the chest. Stable left lung densities which favor scarring or atelectasis. ACT 112: Negative or not required by law. Electronically signed by: Tyree Hall M.D. 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
[2024-05-02] MEDS: CIPROFLOXACIN / D5W 400 MG/200 ML BAG IV STA (12:20)
--- NOTE | 2024-05-02 13:12 | CT Scan Report ---
CT abd pelvis wo con CLINICAL HISTORY: recurrent UTIs, abd pain, eval urinary tract path TECHNIQUE: Helical axial images of the abdomen and pelvis were obtained. Automated dose lowering tech niques and/or adjustment according to patient size were utilized for this exam. This exam was perfor med without intravenous contrast. CT DOSE: 1594.48 mGy.cm COMPARISON: Comparison is made to CT abdomen pelvis 06/12/2022 FINDINGS: Lower chest: Scarring and pleural thickening are seen in the left lung base. Cardiomegaly is seen. T his is similar to prior exam. Liver: Unremarkable. No focal lesions are seen. Gallbladder and biliary tree: Gallstones are seen. Hyperdense material is again seen in the gallbladd er which may represent sludge. No intra- or extrahepatic biliary ductal dilation. Pancreas: Unremarkable, no focal lesions. Spleen: Unremarkable. Adrenals: Unremarkable. Kidneys and ureters: Pelviectasis is seen bilaterally. There is mild prominence of the mid ureters bi laterally. Bladder: Diverticula are seen in the bladder. Reproductive organs: Unremarkable. Bowel: The appendix is normal. Lymph nodes Retroperitoneal: Unremarkable. Pelvic: Unremarkable. Mesenteric: Unremarkable. Peritoneum: Normal. Vessels: Unremarkable. Abdominal wall: Unremarkable. Bones: Degenerative changes in the visualized spine. IMPRESSION: 1. Bladder wall thickening and trabeculation compatible with chronic outlet obstruction. There is pe lviectasis and mild prominence of the ureters which may be related to chronic outlet obstruction as w ell. 2. Cholelithiasis and gallbladder sludge without acute cholecystitis. 3. Additional findings as above. ACT 112: Negative or not required by law. Electronically signed by: Moshe Rodrigez M.D. 05/02/2024 1:11 PM
[2024-05-02 13:16] LABS: Influenza A virus by PCR Negative (Neg); Influenza B virus by PCR Negative (Neg); RSV by PCR Negative (Neg); SARS CoV2 RNA(COVID-19) Ceph NEGATIVE (Negative)
--- NOTE | 2024-05-02 14:01 | Electrocardiogram Report ---
Test Reason : Blood Pressure : */* mmHG Vent. Rate : 74 BPM Atrial Rate : 74 BPM P-R Int : 308 ms QRS Dur : 106 ms QT Int : 406 ms P-R-T Axes : 106 -34 68 degrees QTcB Int : 450 ms Sinus rhythm with 1st degree A-V block Left axis deviation Abnormal ECG When compared with ECG of 02-Apr-2024 04:15, No significant change was found Confirmed by Onofre Christiansen ([id number]) on 05/02/2024 2:01:10 PM Referred By: REFERRED SELF Confirmed By: Onofre Christiansen
[2024-05-02] MEDS: CEFEPIME 2000MG 2,000 MG/20 ML SYR IV STA (14:55)
[2024-05-02] MEDS ORDERED: POLYETHYLENE (MIRALAX) 17 GM PACK PO PRN (16:22)
[2024-05-02] MEDS ORDERED: traZODone HCL 50 MG TAB PO PRN (16:22)
[2024-05-02] MEDS ORDERED: ONDANSETRON INJ 2 MG/ML 2 ML VIAL IV PRN (16:22)
[2024-05-02] MEDS ORDERED: MAGNESIUM HYDROXIDE SUSP 30 ML UDC PO PRN (16:22)
[2024-05-02] MEDS ORDERED: ACETAMINOPHEN 325 MG TAB PO PRN (16:22)
[2024-05-02] MEDS: INSULIN ASPART PER UNIT CHARGE SC SCH (17:54)
[2024-05-02] MEDS: ADVANCED PROBIOTIC 625 MG CAPSULE PO SCH (18:19)
[2024-05-02] MEDS: lisinopril 20 MG TAB PO SCH (18:20)
[2024-05-02] MEDS: PANTOprazole 40 MG TAB PO SCH (18:20)
[2024-05-02] MEDS: METOPROLOL SUCC 25MG EXT REL TAB PO SCH (18:20)
[2024-05-02] MEDS: SODIUM CHLORIDE 0.9% 500 ML IV SCH (18:22)
[2024-05-02] MEDS: APIXABAN 5 MG TABLET PO SCH (21:40)
[2024-05-02] MEDS: TAMSULOSIN HCL 0.4 MG CAP PO SCH (21:40)
[2024-05-02] MEDS: LANTUS PER UNIT CHARGE SC SCH (21:41)
[2024-05-03] MEDS: CEFEPIME 2000MG 2,000 MG/20 ML SYR IV SCH (02:08)
[2024-05-03] MEDS: LEVOTHYROXINE SODIUM 88 MCG TABLET PO SCH (05:44)
[2024-05-03 07:50] LABS: BUN Creatinine Ratio 14.9 (10-20); Calcium 9.2 mg/dl (8.6-10.3); Creatinine Clr Calc Pharmacy 38.4 ml/min; Potassium 4.6 mmol/L (3.5-5.1)
[2024-05-03] MEDS: FLUTICASONE PROPIONATE NA SPR 16 GM BTL PRN (08:07)
[2024-05-03] MEDS: AMMONIUM LACTATE 12% LOTION 225 GM BTL EXT SCH (08:07)
[2024-05-03] MEDS: CHOLECALCIFEROL 25 MCG (1000 UNITS) TAB PO SCH (08:08)
[2024-05-03] MEDS: FERROUS SULFATE 325 MG TAB PO SCH (08:08)
[2024-05-03] MEDS: ASCORBIC ACID 500 MG TAB PO SCH (08:08)
[2024-05-03] MEDS: FOLIC ACID 1 MG TAB PO SCH (08:09)
[2024-05-03] MEDS: GABAPENTIN 100 MG CAP PO PRN (08:09)
--- NOTE | 2024-05-03 11:38 | Hospitalist Progress Note ---
Date of Service May 03, 2024 Assessment & Plan (1) Complicated urinary tract infection: Plan: Actually this appears to be more of an uncomplicated UTI since there is no chronic indwelling Morales catheter or suprapubic catheter. 2 species of Pseudomonas isolated. He did not tolerate ciprofloxacin. He is now on intravenous cefepime. This Pseudomonas appears to be resistant to anything available orally (2) Hypertension: Plan: Stable. Continue home meds including metoprolol, lisinopril. Hhold lasix (3) Hypothyroidism: Plan: Stable. Continue current thyroid replacement therapy (4) Paroxysmal atrial fibrillation: Plan: Stable. Telemetry. Continue metoprolol and Eliquis (5) BPH w/o urinary obs/LUTS: Plan: Stable. Continue Flomax (6) Anemia due to chronic kidney disease: Plan: Stable. Serial labs (7) Morbid obesity with BMI of 45.0-49.9, adult: Plan: BMI 47.9. Significant weight loss recommended (8) Type 2 diabetes mellitus with obesity: Plan: ADA diet. Basal insulin coverage. Sliding scale coverage. (9) CKD stage 3b, GFR 30-44 ml/min: Plan: Stable. Monitor intake and output. Serial labs (10) DVT prophylaxis: Plan: Eliquis 5mg BID Plan Hopeful discharge to home within the next several days. Unfortunately, there is no oral medication available to treat the Pseudomonas in the urine Admission and Anticipated Discharge Date Admission Date: May 03, 2024 Subjective Alert and oriented. No distress. 2 species of Pseudomonas isolated in the urine. Sensitivities are pending. He currently remains on intravenous cefepime, day 2 of antibiotic coverage. He apparently had a Cipro reaction on admission. Creatinine stable at 2.2. Glucose acceptable at 116. OT and PT assessments requested. He is admitted from observation status. Review of Systems 2 Review of Systems: Constitutionalno fever or chills ENTno blurred vision, no double vision, no epistaxis, no sore throat Respiratoryno cough, no wheezing, no shortness of breath Cardiacno palpitations, no chest pain, no syncope Matthew nausea, vomiting, diarrhea, melena, hematochezia GUno urinary retention, no urinary incontinence, no dysuria, no hematuria Musculoskeletalno joint pain, no muscle tenderness Skinvenous stasis changes are chronic in bilateral lower extremities below the knees Neurono isolated weakness, no paresthesia, no weakness Psychno depression, no anxiety Physical Exam 2 Physical Exam: General-alert and oriented x3, no fever, no chills. Obese HEENT-head atraumatic and normocephalic, pupils equal and reactive to light, extraocular muscles intact Neck-no lymphadenopathy or thyromegaly, trachea midline Chest-clear to auscultation. No rales, wheezing or rhonchi Cardiac-regular rate and rhythm, normal S1 and S2 Abdomen-normal bowel sounds, no hepatosplenomegaly Extremities-brawny induration noted bilateral lower extremities below the knees which is chronic. 1+ pitting edema noted. Neuro-cranial nerves II through XII intact, motor and sensory function within normal limits, strength symmetrical, no focal deficits Psych-normal affect, normal mood Results & Data Results & Data Vital Signs (Past 12 Hours) Vital Signs Temp Pulse Pulse Resp BP Pulse Ox O2 Del Method 05/03/24 07:50 36.5 C 63 20 125/69 98 Nasal Cannula 05/03/24 07:17 68 05/03/24 03:01 36.4 C L 75 17 172/84 H 93 Nasal Cannula O2 Flow Rate 05/03/24 07:50 4 05/03/24 07:17 05/03/24 03:01 3 Laboratory Results 05/02/24 08:32 05/03/24 06:53 PG Care Time/CCT Total # of Minutes Spent Total Time Spent with Patient: Total time spent is greater than 50% in coordination of care (as documented) at patient's floor/unit and/or counseling patient: Coding Level of Care Code 81169 SUB INP/OBS CARE 3/50MIN Diagnoses Complicated urinary tract infection N39.0 Hypertension I10 Hypothyroidism E03.9 Hypothyroidism type: unspecified Paroxysmal atrial fibrillation I48.0 BPH w/o urinary obs/LUTS N40.0 Anemia due to chronic kidney disease N18.9; D63.1 Morbid obesity with BMI of 45.0-49.9, adult E66.01; Z68.42 Type 2 diabetes mellitus with obesity E11.69; E66.9 CKD stage 3b, GFR 30-44 ml/min N18.32 DVT prophylaxis Z29.9 (3) Hypothyroidism Hypothyroidism type: unspecified Qualified Code(s): E03.9 - Hypothyroidism, unspecified
[2024-05-04 08:27] LABS: Basophils # (auto) 0.02 K/uL (0.00-0.20); Basophils % (auto) 0.2 %; Eosinophils # (auto) 0.28 K/uL (0.00-0.50); Eosinophils % (auto) 3.4 %; Hematocrit (blood only) 34.3 % (42.0-52.0); Hemoglobin 10.7 g/dl (14.0-18.0); Immature Granulocytes # (auto) 0.03 K/uL (0.01-0.20); Immature Granulocytes % (auto) 0.4 %; Lymphocytes # (auto) 0.84 K/uL (1.20-3.40); Lymphocytes % (auto) 10.3 %; Mean Corpuscular Hemoglobin 29.2 pg (25.0-34.0); Mean Corpuscular Hgb Conc 31.2 g/dL (32.0-36.0); Mean Corpuscular Volume 93.7 fL (80.0-100.0); Mean Platelet Volume 10.3 fL (9.4-12.4); Monocytes # (auto) 0.66 K/uL (0.11-0.59); Monocytes % (auto) 8.1 %; Neutrophils # (auto) 6.34 K/uL (1.40-6.50); Neutrophils % (auto) 77.6 %; Platelet Count 234 K/uL (130-400); RDW Coefficient of Variation 15.8 % (11.5-14.5); RDW Standard Deviation 54.5 fL (36.4-46.3); Red Blood Count 3.66 M/uL (4.70-6.10); White Blood Count 8.17 K/ul (4.8-10.8)
[2024-05-04 08:50] LABS: BUN Creatinine Ratio 15.2 (10-20); Calcium 9.1 mg/dl (8.6-10.3); Creatinine Clr Calc Pharmacy 37.2 ml/min; Potassium 4.4 mmol/L (3.5-5.1)
--- NOTE | 2024-05-04 15:28 | Hospitalist Progress Note ---
Date of Service May 04, 2024 Assessment & Plan (1) Complicated urinary tract infection: Plan: Actually this appears to be more of an uncomplicated UTI since there is no chronic indwelling Morales catheter or suprapubic catheter. 2 species of Pseudomonas isolated. He did not tolerate ciprofloxacin. He is now on intravenous cefepime, day 3. This Pseudomonas appears to be resistant to anything available orally (2) Hypertension: Plan: Stable. Continue home meds including metoprolol, lisinopril. Hhold lasix (3) Hypothyroidism: Plan: Stable. Continue current thyroid replacement therapy (4) Paroxysmal atrial fibrillation: Plan: Stable. Telemetry. Continue metoprolol and Eliquis (5) BPH w/o urinary obs/LUTS: Plan: Stable. Continue Flomax (6) Anemia due to chronic kidney disease: Plan: Stable. Serial labs (7) Morbid obesity with BMI of 45.0-49.9, adult: Plan: BMI 47.9. Significant weight loss recommended (8) Type 2 diabetes mellitus with obesity: Plan: ADA diet. Basal insulin coverage. Sliding scale coverage. (9) CKD stage 3b, GFR 30-44 ml/min: Plan: Stable. Monitor intake and output. Serial labs (10) DVT prophylaxis: Plan: Eliquis 5mg BID Plan Anticipate discharge to home tomorrowMay 05. Intravenous antibiotic course will be completed. Unfortunately, there is no oral medication available to treat the Pseudomonas in the urine Admission and Anticipated Discharge Date Admission Date: May 03, 2024 Subjective Alert and oriented. Afebrile. Vital signs are stable. Asymptomatic. Day 3 of intravenous cefepime. Probably home tomorrowMay 05. There is no need to transfer him to the [facility] Review of Systems 2 Review of Systems: Constitutionalno fever or chills ENTno blurred vision, no double vision, no epistaxis, no sore throat Respiratoryno cough, no wheezing, no shortness of breath Cardiacno palpitations, no chest pain, no syncope Matthew nausea, vomiting, diarrhea, melena, hematochezia GUno urinary retention, no urinary incontinence, no dysuria, no hematuria Musculoskeletalno joint pain, no muscle tenderness Skinvenous stasis changes are chronic in bilateral lower extremities below the knees Neurono isolated weakness, no paresthesia, no weakness Psychno depression, no anxiety Physical Exam 2 Physical Exam: General-alert and oriented x3, no fever, no chills. Obese HEENT-head atraumatic and normocephalic, pupils equal and reactive to light, extraocular muscles intact Neck-no lymphadenopathy or thyromegaly, trachea midline Chest-clear to auscultation. No rales, wheezing or rhonchi Cardiac-regular rate and rhythm, normal S1 and S2 Abdomen-normal bowel sounds, no hepatosplenomegaly Extremities-brawny induration noted bilateral lower extremities below the knees which is chronic. 1+ pitting edema noted. Neuro-cranial nerves II through XII intact, motor and sensory function within normal limits, strength symmetrical, no focal deficits Psych-normal affect, normal mood Results & Data Results & Data Vital Signs (Past 12 Hours) Vital Signs Temp Pulse Pulse Resp BP Pulse Ox O2 Del Method 05/04/24 14:12 62 05/04/24 11:53 36.5 C 66 16 129/68 96 Room Air 05/04/24 07:53 36.8 C 76 16 130/68 96 Nasal Cannula 05/04/24 07:07 76 O2 Flow Rate 05/04/24 14:12 05/04/24 11:53 05/04/24 07:53 2 05/04/24 07:07 Laboratory Results 05/04/24 07:51 05/04/24 07:51 PG Care Time/CCT Total # of Minutes Spent Total Time Spent with Patient: Total time spent is greater than 50% in coordination of care (as documented) at patient's floor/unit and/or counseling patient: Coding Level of Care Code 74989 SUB INP/OBS CARE 2/35MIN Diagnoses Complicated urinary tract infection N39.0 Hypertension I10 Hypothyroidism E03.9 Hypothyroidism type: unspecified Paroxysmal atrial fibrillation I48.0 BPH w/o urinary obs/LUTS N40.0 Anemia due to chronic kidney disease N18.9; D63.1 Morbid obesity with BMI of 45.0-49.9, adult E66.01; Z68.42 Type 2 diabetes mellitus with obesity E11.69; E66.9 CKD stage 3b, GFR 30-44 ml/min N18.32 DVT prophylaxis Z29.9 (3) Hypothyroidism Hypothyroidism type: unspecified Qualified Code(s): E03.9 - Hypothyroidism, unspecified
[2024-05-05] MEDS: diphenhydrAMINE Capsule 25 MG CAP PO ONE (04:41)
[2024-05-05 06:10] LABS: Basophils # (auto) 0.05 K/uL (0.00-0.20); Basophils % (auto) 0.6 %; Eosinophils # (auto) 0.27 K/uL (0.00-0.50); Eosinophils % (auto) 3.2 %; Hematocrit (blood only) 33.1 % (42.0-52.0); Hemoglobin 10.5 g/dl (14.0-18.0); Immature Granulocytes # (auto) 0.03 K/uL (0.01-0.20); Immature Granulocytes % (auto) 0.4 %; Lymphocytes # (auto) 0.88 K/uL (1.20-3.40); Lymphocytes % (auto) 10.3 %; Mean Corpuscular Hemoglobin 29.3 pg (25.0-34.0); Mean Corpuscular Hgb Conc 31.7 g/dL (32.0-36.0); Mean Corpuscular Volume 92.5 fL (80.0-100.0); Mean Platelet Volume 10.3 fL (9.4-12.4); Monocytes # (auto) 0.69 K/uL (0.11-0.59); Monocytes % (auto) 8.1 %; Neutrophils # (auto) 6.63 K/uL (1.40-6.50); Neutrophils % (auto) 77.4 %; Platelet Count 224 K/uL (130-400); RDW Coefficient of Variation 15.5 % (11.5-14.5); RDW Standard Deviation 53.1 fL (36.4-46.3); Red Blood Count 3.58 M/uL (4.70-6.10); White Blood Count 8.55 K/ul (4.8-10.8)
[2024-05-05 06:27] LABS: BUN Creatinine Ratio 15.5 (10-20); Calcium 9.2 mg/dl (8.6-10.3); Creatinine Clr Calc Pharmacy 36.2 ml/min; Potassium 4.2 mmol/L (3.5-5.1)
[2024-05-05 07:55] VITALS: RESP 16
--- NOTE | 2024-05-05 11:54 | Discharge Summary ---
Discharge Summary Date of Service May 05, 2024 Principal Dx & Hospital Course #1 = Principal Diagnosis (1) Complicated urinary tract infection: Actually this appears to be more of an uncomplicated UTI since there is no chronic indwelling Morales catheter or suprapubic catheter. 2 species of Pseudomonas isolated. He did not tolerate ciprofloxacin. He was treated while hospitalized with cefepime. This Pseudomonas appears to be resistant to anything available orally (2) Hypertension: Stable. Continue home meds including metoprolol, lisinopril. Hold lasix while hospitalized. Resume at discharge (3) Hypothyroidism: Stable. Continue current thyroid replacement therapy (4) Paroxysmal atrial fibrillation: Stable. Telemetry. Continue metoprolol and Eliquis (5) BPH w/o urinary obs/LUTS: Stable. Continue Flomax (6) Anemia due to chronic kidney disease: Stable. Serial labs (7) Morbid obesity with BMI of 45.0-49.9, adult: BMI 47.9. Significant weight loss recommended (8) Type 2 diabetes mellitus with obesity: ADA diet. Basal insulin coverage. Sliding scale coverage. (9) CKD stage 3b, GFR 30-44 ml/min: Stable. Monitor intake and output. Serial labs (10) DVT prophylaxis: Eliquis 5mg BID Plan Home today, May 05. Admission HPI Per Admitting Provider Pleasant 78yo male with history of recurrent UTIs, CKD stage 3b with baseline creatinine 2 to 2.2, HTN, T2DM, morbid obesity, PAF on Eliquis, hypothyroidism, and BPH presents after waking up about 0430 this morning with hot/cold chills, nausea, mild dysuria, and simply feeling unwell. He states he was feeling well yesterday but when he went to bed last pm he felt a "little off" and weak. Denies any acute URI symptoms or cough. Denies vomiting. No discrete fever. No hematuria. No myalgias/arthralgias. At baseline he wakes up about twice nightly to void. He had an outpatient follow-up appointment with his PCP and gave a urine sample for culture as test of cure from his UTI in 03/2024. Urine culture from 04/25 grew pansensitive pseudomonas. A review of his record shows numerous urine cultures with pansensitive pseudomonas. In the ER a dose of rocephin was given, and he voiced concerns about going home as he felt too weak (and he lives alone). Discharge Exam General-alert and oriented x3, no fever, no chills. Obese HEENT-head atraumatic and normocephalic, pupils equal and reactive to light, extraocular muscles intact Neck-no lymphadenopathy or thyromegaly, trachea midline Chest-clear to auscultation. No rales, wheezing or rhonchi Cardiac-regular rate and rhythm, normal S1 and S2 Abdomen-normal bowel sounds, no hepatosplenomegaly Extremities-brawny induration noted bilateral lower extremities below the knees which is chronic. 1+ pitting edema noted. Neuro-cranial nerves II through XII intact, motor and sensory function within normal limits, strength symmetrical, no focal deficits Psych-normal affect, normal mood Discharge Plan Discharge Items Patient Disposition: Home - Self-Care Reason For Visit: SUSPECTED UTI Discharge Diagnosis: Pseudomonas UTI Activity: Resume your previous activity Non-emergency contact: Primary Care Provider Call non-emergency contact if: your symptoms worsen Follow-up/Referrals: Elizabeth Chilel MD [Primary Care Provider] - Diet: Carb Consistent or DM2 and Heart Healthy Addtl Attending Provider Instructions: No new medications at this time. Follow-up with primary care provider soon as possible. Pending Studies at Discharge: No Stand-Alone Forms: [facility], Smoking Cessation Medications and DC Order Prescriptions: Continued dulaglutide 0.75 mg/0.5 mL pen injector 0.75 mg subcut .weekly Qty: 2 0RF Rx Instructions: Inject 0.75mg once weekly apixaban 5 mg tablet 5 mg PO BID cholecalciferol (vitamin D3) 25 mcg (1,000 unit) capsule 25 mcg PO QAM folic acid 1 mg tablet 1 mg PO QAM levothyroxine 88 mcg capsule 88 mcg PO DAILYBB metoprolol succinate 25 mg tablet extended release 24 hr 25 mg PO DAILY furosemide [Lasix] 20 mg tablet 20 mg PO DAILY Qty: 90 2RF Hold Instructions: Resume on 03/23/24. Provider's Order fluticasone propionate 50 mcg/actuation spray,suspension 1 spray intranasal BID PRN (Reason: Congestion) pantoprazole 40 mg tablet,delayed release (DR/EC) 40 mg PO DAILY PRN (Reason: Acid Reflux) tamsulosin 0.4 mg Capsule 0.4 mg PO HS Qty: 30 0RF insulin glargine [Lantus Solostar U-100 Insulin] 100 unit/mL (3 mL) insulin pen 18 unit subcut HS trazodone 50 mg tablet 50 mg PO HS PRN (Reason: Sleep) ferrous sulfate [FeroSul] 325 mg (65 mg iron) tablet 325 mg PO QAM gabapentin 100 mg capsule 100 mg PO QID PRN (Reason: Nerve Pain) ascorbic acid (vitamin C) [Vitamin C] 500 mg tablet 500 mg PO DAILY lisinopril 20 mg Tablet 20 mg PO DAILY Qty: 30 0RF Discharge Orders: Discharge Order (Routine); Ordered 05/05/24 Ordered By: Jaime Nguyễn Admission Data Admit Date/Time: 05/03/24 10:55 Attending Provider: Jaime Nguyễn Admit Provider: Toño Travis Primary Care Provider: Elizabeth Chilel Other Providers: Toño Travis; [facility]ospital Hospital Stay Data Consultations 05/02/24 11:19 ED Decision to Admit Stat Diagnostic Imagining Performed 05/02/24 12:09 CT abd pelvis wo con Stat Pending Results Patient Have Any Pending Studies at Discharge: No Discharge Instructions Given to Patient (Per Discharging Provider) No new medications at this time. Follow-up with primary care provider soon as possible. Total Time Total Time Spent Total Time Spent (In Minutes): 45 minutes Coding Level of Care Code 22152 INP/OBS DISCH >30 MIN Diagnoses Complicated urinary tract infection N39.0 Hypertension I10 Hypothyroidism E03.9 Hypothyroidism type: unspecified Paroxysmal atrial fibrillation I48.0 BPH w/o urinary obs/LUTS N40.0 Anemia due to chronic kidney disease N18.9; D63.1 Morbid obesity with BMI of 45.0-49.9, adult E66.01; Z68.42 Type 2 diabetes mellitus with obesity E11.69; E66.9 CKD stage 3b, GFR 30-44 ml/min N18.32 DVT prophylaxis Z29.9
[2024-05-05 12:32] VITALS: TEMP 98.2; O2SAT 98
[2024-05-05 14:11] VITALS: BP 160/76; PULSE 73
== END 2024-05-05 14:38 | disposition home or self-care (01) | DRG 690 ==
LOC: ED 08:02 → EDINP 08:02 → SUATTDRO 12:20 → 2W 16:44

== ENCOUNTER 2024-07-19 13:18 | Inpatient (IN) ==
--- NOTE | 2024-07-19 13:30 | Emergency Department Note ---
Impression & Plan Acute cholecystitis, Abdominal pain, acute, right upper quadrant, Nausea, Leukocytosis ED Provider Note CHIEF COMPLAINT: Abdominal pain, not feeling well HISTORY OF PRESENTING ILLNESS: The patient is a 78-year-old male with a PMH gallstones, biliary colic, CKD, type 2 diabetes, and A-fib who presents to the emergency department with his daughter after being seen by the [place] home health nurse reporting RUQ for the past week. He confirms that the pain is progressively getting worse and now is reporting nausea. Denies fevers, chest pain, shortness of breath, back or flank pain, urinary symptoms. He states, "this gallbladder always gives me trouble". REVIEW OF SYSTEMS: See HPI for pertinent positives and pertinent negatives. ALLERGIES: Ciprofloxacin MEDICATIONS: See below PAST MEDICAL HISTORY: See below PHYSICAL EXAM: VITALS: Vitals are noted on the nurse's note and reviewed by myself. Vital signs stable. GENERAL: 78-year-old male, lying comfortably in bed, in no acute distress, nondiaphoretic, well-developed well-nourished. SKIN: Capillary refill less than 2 seconds. HEENT: Normocephalic. PERRLA. EOMI. Nares patent. Mucous membranes moist. Neck is supple without nuchal rigidity. HEART: Regular rate and rhythm without murmurs gallops or rubs. LUNGS: Clear to auscultation bilaterally without wheezes, rales or rhonchi. No retractions or accessory muscle use. ABDOMEN: Positive bowel sounds x 4. Exquisite tenderness upon palpation to RUQ. Balbuena's positive. Soft, without masses. No guarding or rebound tenderness. NEURO: Patient was alert and oriented. No focal neurological deficits. DIFFERENTIAL DIAGNOSIS: appendicitis, diverticulitis, bowel obstruction, inflammatory bowel disease, renal colic, PUD, biliary pathology, acute cholecystitis, cholelithiasis, pancreatitis, mesenteric ischemia, aortic pathology, infection, genitourinary, UTI, perforated viscus, among others. ED COURSE AND MEDICAL DECISION MAKING: HISTORY FROM INDEPENDENT HISTORIAN: The patient himself and his daughter. MEDICATIONS GIVEN: Zofran 4 mg IV, Tylenol 1000 mg IV, 1 L normal saline, Zosyn 4.5 g IV INTERPRETATION OF LABS: I interpreted the labs with full lab results as below in the lab section of this note. Pertinent lab results discussed in the MDM section below. INTERPRETATION OF IMAGING: Imaging studies were interpreted by myself and read by radiology as per the imaging section of this note. Ultrasound gallbladder - Acute cholecystitis. ESCALATION OF CARE CONSIDERED: Escalation of care was considered due to the patient's extensive gallbladder and biliary colic history as well as exquisite right upper quadrant tenderness on exam. Ultrasound showed acute cholecystitis. Case was presented to general surgery, the patient was started on IV antibiotics, and he was admitted to medicine for surgery in the morning. CONSULTATIONS: - On-call general surgery provider - Dr. Mendoza - Presented the patient, his symptoms, gallstone/biliary colic history, laboratory results, and ultrasound findings of acute cholecystitis. He confirms that it is best to get the patient started on IV antibiotics and admitted to medicine. Confirms that his surgery will be tomorrow morning. - On-call [facility] hospitalist - Presented the patient to the provider. Informed them of acute cholecystitis diagnoses as well as starting him on IV antibiotics. Informed them that I had already discussed the patient with general surgery and plan for operation tomorrow. They confirmed that they would admit him to medicine and evaluate the patient themselves. [facility] SUMMARY: The patient is a 78-year-old male who presents due to worsening RUQ abdominal pain and nausea. Known kidney stones and biliary colic. Denies fevers, chest pain, shortness of breath, back or flank pain, urinary symptoms. On exam the patient is lying comfortable in bed and is in no acute distress. His vitals are stable and he is afebrile. Chest auscultation reveals RRR without murmurs. The lungs are clear to auscultation bilaterally. Positive bowel sounds appreciated x 4. Exquisite tenderness to palpation to the right upper quadrant. Balbuena sign positive. The remaining quadrants of the abdomen are nontender. CT scan was originally considered but due to elevation in creatinine as well as known gallstones ultrasound was ordered. Zofran, Tylenol, and 1 L normal saline were given for symptom management. Leukocytosis WBC 11.49. RBC 3.93. Hemoglobin hematocrit 11.9/37.5. No electrolyte abnormalities. BUN elevated 34. Creatinine elevated 2.31. When comparing these values to his previous he does run on the higher side but they do appear to be acutely elevated. Glucose 183. AST 11. ALT 10. Troponin 5.4. Lipase 53. Urinalysis results showing 1+ protein, trace blood, positive nitrates, positive leukocyte esterase, and urine white blood cells. Urinalysis shows signs of infection. Urinalysis results did not appear until patient was admitted to the hospital. Treatment was provided by hospitalist team during his admission. Ultrasound of gallbladder shows acute cholecystitis. I did inform the patient of these findings and that I was going to contact general surgery. General surgery consultation can be seen in detail above. They confirmed starting IV antibiotics and admitting to medicine for surgery tomorrow. Consultation with [facility] hospitalist can be seen in detail above. They confirmed that they would evaluate the patient and admit them. Patient requested that I call his daughter to inform her of what is going on. I contacted the daughter and was able to speak with her on the phone notifying her of the diagnosis as well as planned surgery. She was thankful for the call and being kept in the loop. On reevaluation of the patient he does confirm that he is feeling better and his nausea has resolved. I informed him of my discussions with general surgery and the hospitalist team and that the remainder of his care would be provided by them. Patient agrees to the outlined treatment plan and all of his questions were answered. The patient was admitted in stable condition. DIAGNOSIS: Acute cholecystitis, acute right upper quadrant abdominal pain, nausea, leukocytosis The chart was completed utilizing [employer] Speech voice recognition software. Grammatical errors, random word insertions, pronoun errors, and incomplete sentences are an occasional consequence of this system due to software limitations, ambient noise, and hardware issues. Any formal questions or concerns about the content, text, or information contained within the body of this dictation should be directly addressed to the provider for clarification. Past Med/Surg History Problem List (Updated 07/20/24 @ 21:17 by Hilda Celaya PA-C) Leukocytosis (Acute) Nausea (Acute) Abdominal pain, acute, right upper quadrant (Acute) Acute cholecystitis (Acute) Acute cholecystitis Elevated serum creatinine Abnormal finding on urinalysis Biliary colic Drug reaction Complicated urinary tract infection (Acute) Weakness (Acute) Bilateral leg edema Medical History CKD stage 3b, GFR 30-44 ml/min Type 2 diabetes mellitus with obesity Hypertension Morbid obesity with BMI of 45.0-49.9, adult Hypothyroidism Paroxysmal atrial fibrillation Anemia due to chronic kidney disease BPH w/o urinary obs/LUTS Recurrent UTI Cholelithiasis Sleep apnea 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 [place] Vitamin D deficiency 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 Chronic kidney disease, stage 4 (severe) Hyperlipidemia Age-related nuclear cataract, right eye Surgical History H/O skin graft History of arthroplasty of right ankle Family History Grandfather (Maternal) Diabetes Grandfather (Paternal) Arteriosclerosis Stroke Mother Hypertension Sepsis age 79 Father Stomach ulcer Myocardial infarction age 75 Denies family history of Ovarian cancer Prostate cancer Breast cancer Lung cancer Colorectal cancer Social History Smoking Status: Never smoker Second Hand Exposure: Yes; Do You Dip or Chew Tobacco: No; Hx Alcohol Use: No Hx Substance Use: No Preferred Language: Faroese Communication Ability: Effective Pre Press Proofer Required: No Beliefs That Will Affect Care: None marital status: / Current Living Situation: Alone Current Living Situation Comment: Lives alone in [facility] [address]. 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 How many Children do You have: 1 Feels Safe at Home: Yes Diet: regular during the past year weight has: remained stable Dental Care, Regularly: No Physical Activity Frequency: Does not Exercise Seatbelt Use: always Sunscreen Use: No Do you think of yourself as: straight/heterosexual Gender Identity: Male Assistive Devices: Cane and Glasses Allergies Allergies Allergy/AdvReac Type Severity Reaction Status Date / Time orange flavor Allergy Severe Gastrointestinal Verified 07/19/24 16:42 Upset orange juice Allergy Severe Gastrointestinal Verified 07/19/24 16:42 Upset orange Allergy Unknown Gastrointestinal Verified 07/19/24 16:42 Upset ciprofloxacin [From Cipro] AdvReac Intermediate Upset Verified 07/19/24 16:42 Stomach, Nausea, GI Discomfort Home Meds Home Medications Medication Instructions Recorded Confirmed apixaban 5 mg tablet 5 mg PO BID 04/25/21 07/19/24 cholecalciferol (vitamin D3) 25 25 mcg PO QAM 04/25/21 07/19/24 mcg (1,000 unit) capsule folic acid 1 mg tablet 1 mg PO QAM 04/25/21 07/19/24 levothyroxine 88 mcg capsule 88 mcg PO DAILYBB 04/25/21 07/19/24 ferrous sulfate 325 mg (65 mg 325 mg PO QA 06/30/21 07/19/24 iron) tablet (FeroSul) fluticasone propionate 50 1 spray intranasal BID PRN 08/06/23 07/19/24 mcg/actuation nasal Congestion spray,suspension metoprolol succinate 25 mg 25 mg PO DAILY 08/06/23 07/19/24 tablet,extended release 24 hr ascorbic acid (vitamin C) 500 mg 500 mg PO DAILY 11/17/23 07/19/24 tablet (Vitamin C) atorvastatin 20 mg tablet 0 mg PO HS 05/07/24 07/19/24 insulin glargine 100 unit/mL (3 18 unit subcut HS 05/09/24 07/19/24 mL) subcutaneous pen (Lantus Solostar U-100 Insulin) lisinopril 20 mg tablet 20 mg PO DAILY 05/09/24 07/19/24 furosemide 20 mg tablet 20 mg PO [facility] 07/19/24 07/19/24 Previous Rx's Medication Instructions Recorded tamsulosin 0.4 mg capsule 0.4 mg PO HS #30 caps 02/18/22 Results & Data (ED) Vital Signs Vital Signs - 24 hr 07/19/24 15:19 07/19/24 16:11 07/19/24 17:00 Pulse Rate 71 Pulse Rate [Right Brachial] 71 72 Pulse Rhythm [Right Brachial] Regular Regular Pulse Strength [Right Brachial] Normal Normal Respiratory Rate 16 19 Respiratory Effort / Characteristics Non-Labored Non-Labored Respiratory Depth Normal Normal Respiratory Pattern Regular Regular Blood Pressure [Right Arm] 161/79 H 164/91 H Blood Pressure Mean [Right Arm] 106 115 Blood Pressure Position [Right Arm] Lying Lying Pulse Oximetry 96 96 Oxygen Delivery Method Room Air Laboratory Data 07/20/24 05:25 07/20/24 05:25 Lab Results 07/19/24 Range/Units 13:54 WBC 11.49 H (4.8-10.8) K/ul RBC 3.93 L (4.70-6.10) M/uL Hgb 11.9 L (14.0-18.0) g/dl Hct 37.5 L (42.0-52.0) % MCV 95.4 (80.0-100.0) fL MCH 30.3 (25.0-34.0) pg MCHC 31.7 L (32.0-36.0) g/dL RDW Std Deviation 55.2 H (36.4-46.3) fL RDW Coeff of Yolanda 15.6 H (11.5-14.5) % Plt Count 279 (130-400) K/uL MPV 10.2 (9.4-12.4) fL Immature Gran % (Auto) 0.5 % Neut % (Auto) 87.6 % Lymph % (Auto) 6.3 % Gaines % (Auto) 5.0 % Eos % (Auto) 0.3 % Baso % (Auto) 0.3 % Neut # (Auto) 10.05 H (1.40-6.50) K/uL Lymph # (Auto) 0.72 L (1.20-3.40) K/uL Gaines # (Auto) 0.58 (0.11-0.59) K/uL Eos # (Auto) 0.04 (0.00-0.50) K/uL Baso # (Auto) 0.04 (0.00-0.20) K/uL Immature Gran # (Auto) 0.06 (0.01-0.20) K/uL Sodium 139 (136-145) mmol/L Potassium 4.4 (3.5-5.1) mmol/L Chloride 106 (98-107) mmol/L Carbon Dioxide 27 (21-32) mmol/L Anion Gap 6 (3-11) BUN 34 H (6-23) mg/dl Creatinine 2.31 H (0.6-1.4) mg/dl Est Cr Clr Drug Dosing 37.3 ml/min eGFR 28.21 BUN/Creatinine Ratio 14.7 (10-20) Glucose 183 H (70-99(Fasting)) mg/dl Calcium 9.8 (8.6-10.3) mg/dl Total Bilirubin 0.5 (0.2-1.0) mg/dl AST 11 L (13-39) U/L ALT 10 (7-52) U/L Alkaline Phosphatase 58 (34-104) U/L Total Protein 8.3 (6.0-8.3) gm/dl Albumin 4.0 (3.4-5.0) gm/dl Globulin 4.3 H (2.5-4.0) gm/dl Albumin/Globulin Ratio 0.9 (0.9-2) Lipase 53 (11-82) U/L Urine Color Yellow Urine Appearance Cloudy A (Clear) Urine pH 6.5 (4.5-7.5) Ur Specific [place] 1.014 (1.000-1.030) Urine Protein 1+ H (Negative) Urine Glucose (UA) Negative (Negative) Urine Ketones Negative (Negative) Urine Blood Trace H (Negative) Urine Nitrite Positive A (Negative) Urine Bilirubin Negative (Negative) Urine Urobilinogen Negative (Negative) Ur Leukocyte Esterase 3+ H (Negative) Urine WBC (Auto) >50 H (0-5) /hpf Urine RBC (Auto) 0-2 (0-2) /hpf U Hyaline Cast (Auto) 0-2 (0-2) /lpf U Epithel Cells (Auto) 0-2 (0-2) /hpf Urine Bacteria (Auto) 3+ H (None Seen) Administered Medications Ferrous Sulfate (Ferrous Sulfate 325 Mg Tab) 325 mg PO QAM COUNTS INCLUDE 234 BEDS AT THE [facility] Stop: 08/19/24 08:59 Last Admin: 07/20/24 08:35 Dose: Not Given Documented By: MIRIAM Acetaminophen (Ofirmev) 1,000 mg in 100 mls @ 400 mls/hr IV Q8H PRN PRN Reason: Pain or Fever Stop: 07/22/24 20:56 Last Infusion: 07/20/24 15:24 Dose: Infused Documented By: Admin: 07/20/24 15:04 Dose: 400 mls/hr Documented By: Infusion: 07/20/24 02:39 Dose: Infused Documented By: Admin: 07/20/24 02:16 Dose: 400 mls/hr Documented By: JUDE Piperacillin Sod/Tazobactam Sod (Zosyn) 4.5 gm in 100 mls @ 25 mls/hr IV Q8H COUNTS INCLUDE 234 BEDS AT THE [facility]; Protocol Stop: 07/23/24 19:59 Last Admin: 07/20/24 20:50 Dose: 25 mls/hr Documented By: Infusion: 07/20/24 16:42 Dose: Infused Documented By: Admin: 07/20/24 11:18 Dose: 25 mls/hr Documented By: Infusion: 07/20/24 08:34 Dose: Infused Documented By: Admin: 07/20/24 04:05 Dose: 25 mls/hr Documented By: Infusion: 07/20/24 02:10 Dose: Infused Documented By: Admin: 07/19/24 22:12 Dose: 25 mls/hr Documented By: JUDE Insulin Glargine (Lantus Per Unit Charge) 5 units SQ BID LEE Stop: 08/18/24 20:59 Last Admin: 07/20/24 20:50 Dose: 5 units Documented By: KAYLEIGH Co-signed By: DION Admin: 07/20/24 08:58 Dose: 5 units Documented By: WIL Co-signed By: LARRY Admin: 07/19/24 23:48 Dose: Not Given Documented By: JUDE Levothyroxine Sodium (Levothyroxine Sodium 88 Mcg Tablet) 88 mcg PO DAILYBB COUNTS INCLUDE 234 BEDS AT THE [facility] Stop: 08/19/24 06:29 Last Admin: 07/20/24 06:21 Dose: Not Given Documented By: JUDE Lisinopril (Lisinopril 20 Mg Tab) 20 mg PO DAILY LEE Stop: 08/19/24 08:59 Last Admin: 07/20/24 08:36 Dose: Not Given Documented By: [facility] Metoprolol Succinate (Metoprolol Succ 25mg Ext Rel Tab) 25 mg PO DAILY LEE Stop: 08/19/24 08:59 Last Admin: 07/20/24 20:45 Dose: 25 mg Documented By: Admin: 07/19/24 23:21 Dose: 25 mg Documented By: JUDE Ondansetron HCl (Ondansetron Inj 2 Mg/Ml 2 Ml Vial) 4 mg IV Q6H PRN PRN Reason: Nausea Stop: 08/18/24 20:56 Last Admin: 07/20/24 15:30 Dose: 4 mg Documented By: [facility] Tamsulosin HCl (Tamsulosin Hcl 0.4 Mg Cap) 0.4 mg PO HS COUNTS INCLUDE 234 BEDS AT THE [facility] Stop: 08/18/24 20:59 Last Admin: 07/20/24 20:45 Dose: 0.4 mg Documented By: Admin: 07/19/24 23:08 Dose: 0.4 mg Documented By: JUDE Discontinued Medications Acetaminophen (Ofirmev) 1,000 mg in 100 mls @ 400 mls/hr IV NOW STA Stop: 07/19/24 13:49 Last Infusion: 07/19/24 14:20 Dose: Infused Documented By: [facility] Admin: 07/19/24 14:07 Dose: 400 mls/hr Documented By: VIRA Sodium Chloride (Nss) 1,000 mls @ 999 mls/hr IV .Q1H1M ONE Stop: 07/19/24 15:52 Last Infusion: 07/19/24 18:18 Dose: Infused Documented By: Admin: 07/19/24 16:09 Dose: 999 mls/hr Documented By: NYLA Piperacillin Sod/Tazobactam Sod (Zosyn) 4.5 gm in 100 mls @ 200 mls/hr IV NOW ONE; Protocol Stop: 07/19/24 16:58 Last Infusion: 07/19/24 18:18 Dose: Infused Documented By: Admin: 07/19/24 17:09 Dose: 200 mls/hr Documented By: NYLA Lactated Ringer's (Lr) 1,000 mls @ 80 mls/hr IV .[id number] LEE Stop: 07/20/24 06:59 Last Infusion: 07/20/24 10:21 Dose: Infused Documented By: [facility] Admin: 07/19/24 18:46 Dose: 80 mls/hr Documented By: NYLA Ondansetron HCl (Ondansetron Inj 2 Mg/Ml 2 Ml Vial) 4 mg IV NOW STA Stop: 07/19/24 13:36 Last Admin: 07/19/24 14:07 Dose: 4 mg Documented By: [facility] Imaging Data Radiologist's Impression: Gallbladder Ultrasound 07/19/24 15:04 Technique: Sonography was performed of the right upper quadrant of the abdomen Findings: There is suspected mild fatty infiltration of the liver. No definite liver mass is seen. There is normal directional flow in the main portal vein Multiple gallstones are present. The gallbladder is distended. There is gallbladder sludge. The gallbladder wall is mildly thickened, measuring 4 mm. Overlying tenderness was detected There is no intrahepatic or extrahepatic bile duct dilatation. The common bile duct measures 5 mm The right kidney measures 11.2 cm in length. There is no hydronephrosis. No definite renal calculus or mass is seen The visualized pancreas, aorta, and IVC appear unremarkable. No ascites is seen Impression: Acute cholecystitis ACT 112: Positive. There are findings on this exam that require communication between the performing entity and the patient following Patient Test Result Information Act ([place] ACT 112) guidelines. Electronically signed by Pierre Corbin 07-19-2024 4:09 PM Discharge Plan Visit Data Chief Complaint: Abdominal Pain Stated Complaint: ABD PAIN, NOT FEELING WELL ED Provider: Coco Morrissey ED Midlevel Provider: Hilda Celaya Discharge Problem: Acute cholecystitis, Abdominal pain, acute, right upper quadrant, Nausea, Leukocytosis Patient Disposition: Admitted As Inpatient Condition: Good Discharge Instructions Interventions: ED Discharge Assessment Last Done: 07/19/24 20:29 Discharge Problem: Leukocytosis Qualifiers: Leukocytosis type: unspecified Qualified Code(s): D72.829 - Elevated white blood cell count, unspecified
[2024-07-19] MEDS: ONDANSETRON INJ 2 MG/ML 2 ML VIAL IV STA (14:07)
[2024-07-19] MEDS: ACETAMINOPHEN 1,000 MG/100 ML VIAL IV STA (14:07)
[2024-07-19 14:23] LABS: Appearance Urine Cloudy (Clear); Bacteria Urine Automated 3+ (None Seen); Basophils # (auto) 0.04 K/uL (0.00-0.20); Basophils % (auto) 0.3 %; Bilirubin Urine Negative (Negative); Blood Urine Trace (Negative); Cast Urine Automated 0-2 /lpf (0-2); Color Urine Yellow; Eosinophils # (auto) 0.04 K/uL (0.00-0.50); Eosinophils % (auto) 0.3 %; Epithelial Cell Urine Auto 0-2 /hpf (0-2); Glucose Urine UA Negative (Negative); Hematocrit (blood only) 37.5 % (42.0-52.0); Hemoglobin 11.9 g/dl (14.0-18.0); Immature Granulocytes # (auto) 0.06 K/uL (0.01-0.20); Immature Granulocytes % (auto) 0.5 %; Ketones Urine Negative (Negative); Leukocyte Esterase Urine 3+ (Negative); Lymphocytes # (auto) 0.72 K/uL (1.20-3.40); Lymphocytes % (auto) 6.3 %; Mean Corpuscular Hemoglobin 30.3 pg (25.0-34.0); Mean Corpuscular Hgb Conc 31.7 g/dL (32.0-36.0); Mean Corpuscular Volume 95.4 fL (80.0-100.0); Mean Platelet Volume 10.2 fL (9.4-12.4); Monocytes # (auto) 0.58 K/uL (0.11-0.59); Neutrophils # (auto) 10.05 K/uL (1.40-6.50); Neutrophils % (auto) 87.6 %; Nitrite Urine Positive (Negative); Platelet Count 279 K/uL (130-400); Protein Urine 1+ (Negative); RBC Urine Automated 0-2 /hpf (0-2); RDW Coefficient of Variation 15.6 % (11.5-14.5); RDW Standard Deviation 55.2 fL (36.4-46.3); Red Blood Count 3.93 M/uL (4.70-6.10); Specific Gravity Urine 1.014 (1.000-1.030); Urobilinogen Urine Negative (Negative); WBC Urine Automated >50 /hpf (0-5); White Blood Count 11.49 K/ul (4.8-10.8); pH Urine 6.5 (4.5-7.5)
[2024-07-19 14:38] LABS: Albumin Globulin Ratio 0.9 (0.9-2); BUN Creatinine Ratio 14.7 (10-20); Bilirubin,Total 0.5 mg/dl (0.2-1.0); Calcium 9.8 mg/dl (8.6-10.3); Creatinine Clr Calc Pharmacy 37.3 ml/min; Globulin 4.3 gm/dl (2.5-4.0); Potassium 4.4 mmol/L (3.5-5.1); Total Protein 8.3 gm/dl (6.0-8.3)
[2024-07-19] MEDS: SODIUM CHLORIDE 0.9% 1,000 ML IV ONE (16:09)
--- NOTE | 2024-07-19 16:09 | Ultrasound Report ---
Technique: Sonography was performed of the right upper quadrant of the abdomen Findings: There is suspected mild fatty infiltration of the liver. No definite liver mass is seen. There is normal directional flow in the main portal vein Multiple gallstones are present. The gallbladder is distended. There is gallbladder sludge. The gallbladder wall is mildly thickened, measuring 4 mm. Overlying tenderness was detected There is no intrahepatic or extrahepatic bile duct dilatation. The common bile duct measures 5 mm The right kidney measures 11.2 cm in length. There is no hydronephrosis. No definite renal calculus or mass is seen The visualized pancreas, aorta, and IVC appear unremarkable. No ascites is seen Impression: Acute cholecystitis ACT 112: Positive. There are findings on this exam that require communication between the performing entity and the patient following Patient Test Result Information Act ([place] ACT 112) guidelines. Electronically signed by Pierre Corbin 07-19-2024 4:09 PM
[2024-07-19] MEDS: PIPERACILLIN/TAZOBACTAM 4.5 GM/100 ML BAG IV ONE (17:09)
--- NOTE | 2024-07-19 17:18 | History & Physical Report ---
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 #Acute cholecystitis - labs on admission; WBC 11, Hgb 11.9, - US on admission + for acute cholecystitis - Gen surg; to go to OR for lap miguel tomorrow am - NPO pending surgery recs - AB coverage; zosyn - IV tylenol first line for pain, morphine breakthrough - 1L IVF given #CKD stage 4 - baseline Cr 2.2-2.4 - Cr on admission 2.31 - given acute illness will hold lisinopril for now neil as intake has been poor today and bump in Cr can be delayed #DMT2 on insulin - usually takes 18 units long acting once daily at home - will reduce to 5 units BID given NPO for surg #A fib - continue home metoprolol - hold home eliquis pending surg tomorrow #Recurrent UTIs - no dysuria noted by pt on admission - UA may suggest UTI; urine cx pending - currently on zosyn; several previous cx recently with pansensitive pseudomonas #Hypothyroidism - last TSH 05/25; 1.2 - continue home levothyroxine - am TSH level #BPH - continue home tamsulosin #HFpEF - last echo 2021 - will do repeat echo; pending #Chronic venous stasis - baseline level of LE edema per pt on admission and he clinically appears euvolemic on admission - will hold am bumex dose given surg and he appears euvolemic on admission, can restart after Diet: NPO pending surgery VTE ppx: holding home eliquis due to surgery tomorrow History of Present Illness Chief Complaint: Acute cholecystitis Primary Care Provider: Elizabeth Chilel MD Pt is a 78 yo male with a past med hx of DMT2 on insulin, afib on eliquis at home, CKD stage 4, HTN, hypothyroidism, BPH and recurrent UTIs who presents to the hospital on 07/19 for RUQ pain found to have acute cholecystitis. Pt states he felt generally well until about 1 week ago when he started to have sporadic episodes of RUQ abdominal pain. He states he would have maybe 1-2 episodes a day and then may not have any issues for a day or so. He states the episodes seemed random, no identifiable remitting or relieving factors. He states he does have a hx of recurrent UTIs for which he sees a doctor for and states that he felt like with his sporadic pain and chills and decreased appetite may have been from a UTI, but states that he has not had any dysuria. He states he did have an US recently in April but states it was to assess his kidneys given recurrent UTIs, but that he does know they saw gallstones on that US. He states he saw a surgeon for the gallstone findings but ultimately decided since he was asymptomatic and had not had any GB episodes to not proceed with surgical intervention at that time. He states last night around 1 am he woke up with the RUQ pain which seemed worse than prior episodes and did not go away in 5-10 minutes which concerned him and prompted him to come into the hospital earlier today. He states he also felt very gassy and a bit nauseated. No pain at the present but states he had pain earlier which was relieved with IV tylenol. No fevers at home. No chest pain or SOB today. He notes decreased appetite but no vomiting. Last BM was this morning and was nonbloody. No blood in urine noted by pt. Allergies Allergy/AdvReac Type Severity Reaction Status Date / Time orange flavor Allergy Severe Gastrointestinal Verified 07/19/24 16:42 Upset orange juice Allergy Severe Gastrointestinal Verified 07/19/24 16:42 Upset orange Allergy Unknown Gastrointestinal Verified 07/19/24 16:42 Upset ciprofloxacin [From Cipro] AdvReac Intermediate Upset Verified 07/19/24 16:42 Stomach, Nausea, GI Discomfort Home Medications Medication Instructions Recorded Confirmed Type apixaban 5 mg tablet 5 mg PO BID 04/25/21 07/19/24 History cholecalciferol (vitamin D3) 25 25 mcg PO QAM 04/25/21 07/19/24 History mcg (1,000 unit) capsule folic acid 1 mg tablet 1 mg PO QAM 04/25/21 07/19/24 History levothyroxine 88 mcg capsule 88 mcg PO DAILYBB 04/25/21 07/19/24 History ferrous sulfate 325 mg (65 mg 325 mg PO QAM 06/30/21 07/19/24 History iron) tablet (FeroSul) tamsulosin 0.4 mg capsule 0.4 mg PO HS #30 caps 02/18/22 07/19/24 Rx fluticasone propionate 50 1 spray intranasal BID PRN 08/06/23 07/19/24 History mcg/actuation nasal Congestion spray,suspension metoprolol succinate 25 mg 25 mg PO DAILY 08/06/23 07/19/24 History tablet,extended release 24 hr ascorbic acid (vitamin C) 500 mg 500 mg PO DAILY 11/17/23 07/19/24 History tablet (Vitamin C) atorvastatin 20 mg tablet 0 mg PO HS 05/07/24 07/19/24 History insulin glargine 100 unit/mL (3 18 unit subcut HS 05/09/24 07/19/24 History mL) subcutaneous pen (Lantus Solostar U-100 Insulin) lisinopril 20 mg tablet 20 mg PO DAILY 05/09/24 07/19/24 History furosemide 20 mg tablet 20 mg PO QAM 07/19/24 07/19/24 History Past Med/Surg History Problem List Leukocytosis (Acute) Nausea (Acute) Abdominal pain, acute, right upper quadrant (Acute) Acute cholecystitis (Acute) Acute cholecystitis Elevated serum creatinine Abnormal finding on urinalysis Biliary colic Drug reaction Complicated urinary tract infection (Acute) Weakness (Acute) Bilateral leg edema Medical History CKD stage 3b, GFR 30-44 ml/min Type 2 diabetes mellitus with obesity Hypertension Morbid obesity with BMI of 45.0-49.9, adult Hypothyroidism Paroxysmal atrial fibrillation Anemia due to chronic kidney disease BPH w/o urinary obs/LUTS Recurrent UTI Cholelithiasis Sleep apnea 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 [place] Vitamin D deficiency 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 Chronic kidney disease, stage 4 (severe) Hyperlipidemia Age-related nuclear cataract, right eye Surgical History H/O skin graft 2nd and 3rd degree pastrana on body 1993 History of arthroplasty of right ankle has 6 pins in it, had a Fx Family History Grandfather (Maternal) Diabetes Grandfather (Paternal) Arteriosclerosis Stroke Mother Hypertension Sepsis age 79 Father Stomach ulcer Myocardial infarction age 75 Denies family history of Ovarian cancer Prostate cancer Breast cancer Lung cancer Colorectal cancer Social History Smoking Status: Never smoker Second Hand Exposure: Yes; Do You Dip or Chew Tobacco: No; Hx Alcohol Use: No Hx Substance Use: No Preferred Language: Gabonese Communication Ability: Effective Director Of Pupil Personnel Program Required: No Beliefs That Will Affect Care: None marital status: / Current Living Situation: Alone Current Living Situation Comment: Lives alone in [address]. 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 Physical Exam Physical Exam: General: Alert and oriented, no acute distress, very pleasant HEENT: Normocephalic, moist oral mucosa, Cardio: Regular rate and rhythm, no murmur, Resp: Lungs clear to auscultation b/l, no wheezes or rhonchi, GI: Soft, bowel sounds active, RUQ tenderness to palpation Skin: Warm, pink, dry, lower extremity stasis dermatitis noted with 1+ pitting edema Results & Data Results & Data Vital Signs (Past 12 Hours) Vital Signs Temp Pulse Pulse Resp BP BP Pulse Ox 07/19/24 16:11 71 07/19/24 15:19 71 16 161/79 H 96 07/19/24 13:20 36.2 C L 75 20 219/107 H 100 07/19/24 13:19 70 12 180/86 H 95 O2 Del Method 07/19/24 16:11 07/19/24 15:19 Room Air 07/19/24 13:20 Room Air 07/19/24 13:19 Room Air Supervising Physician Co-Signing Physician Notes Attending Attestation & Admit Note: Pt seen/examined, chart reviewed, admit care plan d/w Dr Yvette Albarran, FP resident. I agree w/ the edouard components of her admission documentation. Pleasant 78yo male with T2DM on insulin, paroxysmal afib/aflutter on Eliquis, CKD stage 4 with baseline Cr low 2's, HTN, hypothyroidism, BPH and recurrent UTIs. Presents with severe RUQ Pain and found to have acute cholecystitis on RUQ u/s. LFTs upon presentation today were wnl. Started on IV zosyn in the ER for the cholecystitis. PMH/PSH/allergies/meds/sochx - reviewed VSS, afebrile gen - resting comfortably in bed, morbidly obese, NAD neck - no JVD mouth - MM slightly dry heart - RRR, s1 s2 lungs - CTA b/l, no rales abd - RUQ tenderness to palpation, no peritoneal signs, BS+, no mass, soft ext - <1+ edema b/l, pulses b/l feet 2+ skin - stasis changes b/l legs/shins labs reviewed EKG reviewed RUQ u/s reviewed A/P: 1. acute cholecystitis without lab or u/s evidence of choledocholithiasis 2. T2DM 3. h/o a.fib/a.flutter - paroxysmal - on Eliquis 4. CKD stage 4 5. HTN 6. hypothyroidism 7. h/o recurrent UTIs 8. BPH 9. morbid obesity, BMI ~45 10. h/o HFpEF #1 - agree with zosyn for acute cholecystitis; NPO status; gentle IV fluids; pain meds; formal gen surg consult unfortunately patient is on chronic Eliquis therapy and this will take 2-3 days to dissipate from his body thus, Eliquis to be held and will need to defer his surgery for potentially 3 days in meantime obtain echo given his prior h/o HFpEF so that we can optimize his cardiac status prior to surgery #3 - hold Eliquis ; cont meto succ #6 - TSH wnl #10 - obtain echo, hold lasix, cont meto succ Toño Travis MD Resident Activity Tracking Resident Involvement: Resident Care Provided Care Provided: Adult Hospital Medicine (6) Hypothyroidism Hypothyroidism type: unspecified Qualified Code(s): E03.9 - Hypothyroidism, unspecified
[2024-07-19] MEDS: LACTATED RINGER'S 1,000 ML IV SCH (18:46)
[2024-07-19] MEDS ORDERED: GLUCOSE 40% GEL 15 GM TUBE PO PRN (20:57)
[2024-07-19] MEDS ORDERED: DEXTROSE 50% 50 ML SYRINGE IV PRN (20:57)
[2024-07-19] MEDS ORDERED: MoRPHine SULFATE 2 MG/ML CARP IV PRN (20:57)
[2024-07-19] MEDS ORDERED: POLYETHYLENE (MIRALAX) 17 GM PACK PO PRN (20:57)
[2024-07-19] MEDS ORDERED: GLUCAGON FOR INJ 1 MG VIAL SQ PRN (20:57)
[2024-07-19] MEDS ORDERED: GLUCOSE 10 TAB/TUBE PO PRN (20:57)
[2024-07-19] MEDS ORDERED: CARBOHYDRATES FOR HYPOGLYCEMIA PO PRN (20:57)
[2024-07-19] MEDS: PIPERACILLIN/TAZOBACTAM 4.5 GM/100 ML BAG IV SCH (22:12)
[2024-07-19] MEDS: TAMSULOSIN HCL 0.4 MG CAP PO SCH (23:08)
[2024-07-19] MEDS: METOPROLOL SUCC 25MG EXT REL TAB PO SCH (23:21)
[2024-07-19] MEDS: LANTUS PER UNIT CHARGE SQ SCH (23:48)
[2024-07-20] MEDS: ACETAMINOPHEN 1,000 MG/100 ML VIAL IV PRN (02:16)
[2024-07-20] MEDS: LEVOTHYROXINE SODIUM 88 MCG TABLET PO SCH (06:21)
[2024-07-20 06:30] LABS: Basophils # (auto) 0.02 K/uL (0.00-0.20); Basophils % (auto) 0.2 %; Eosinophils # (auto) 0.13 K/uL (0.00-0.50); Eosinophils % (auto) 1.2 %; Hematocrit (blood only) 35.4 % (42.0-52.0); Hemoglobin 11.2 g/dl (14.0-18.0); Immature Granulocytes # (auto) 0.04 K/uL (0.01-0.20); Immature Granulocytes % (auto) 0.4 %; Lymphocytes # (auto) 0.86 K/uL (1.20-3.40); Lymphocytes % (auto) 7.9 %; Mean Corpuscular Hemoglobin 30.4 pg (25.0-34.0); Mean Corpuscular Hgb Conc 31.6 g/dL (32.0-36.0); Mean Corpuscular Volume 96.2 fL (80.0-100.0); Mean Platelet Volume 10.3 fL (9.4-12.4); Monocytes # (auto) 0.63 K/uL (0.11-0.59); Monocytes % (auto) 5.8 %; Neutrophils # (auto) 9.27 K/uL (1.40-6.50); Neutrophils % (auto) 84.5 %; Platelet Count 267 K/uL (130-400); RDW Coefficient of Variation 15.7 % (11.5-14.5); RDW Standard Deviation 55.7 fL (36.4-46.3); Red Blood Count 3.68 M/uL (4.70-6.10); White Blood Count 10.95 K/ul (4.8-10.8)
[2024-07-20 07:00] LABS: Albumin Globulin Ratio 0.8 (0.9-2); Albumin Level 3.2 gm/dl (3.4-5.0); BUN Creatinine Ratio 12.1 (10-20); Bilirubin,Total 0.7 mg/dl (0.2-1.0); Creatinine Clr Calc Pharmacy 40.3 ml/min; Globulin 3.9 gm/dl (2.5-4.0); Potassium 4.4 mmol/L (3.5-5.1); Total Protein 7.1 gm/dl (6.0-8.3)
[2024-07-20 07:14] LABS: Thyroid Stimulating Hormone 0.919 uIu/ml (0.300-4.500)
[2024-07-20 07:36] LABS: Estimated Average Glucose 128 mg/dl; Hemoglobin A1C 6.1 % (4.5-5.6)
[2024-07-20] MEDS: FERROUS SULFATE 325 MG TAB PO SCH (08:35)
[2024-07-20] MEDS: lisinopril 20 MG TAB PO SCH (08:36)
--- NOTE | 2024-07-20 09:07 | Surgery Consultation ---
Date of Consultation July 20, 2024 Assessment & Plan (1) Acute cholecystitis: (2) Elevated serum creatinine: CKD with baseline creatinin 2.2-2.4 Plan 78 yo male with 1 week history of intermittent RUQ abdominal pain that was increasing in severity and frequency . Pain yesterday was more intense and was not resolving as prior episodes and presented to ED> Mild leukocytosis of 11k, ultrasound showing gallstones with mild gallbladder wall thickening at 4 mm , no mention of pericholecystic fluid. CBD normal in size and no elevation of t. bili, lfts or lipase. RUQ tenderness on examination. Will order HIDA scan to confirm acute cholecystitis. Keep NPO for hida scan but an then have clear liquids. will need to continue to hold Eliquis and will determine surgical cholecystectomy timing pending HIDA results. Continue medical management. Discussed with Dr. Mendoza who agrees with above. History of Present Illness Reason for Consultation: Acute cholecystitis Requesting Physician: Yvette Jimenes DO Attending Physician: Elan Hebert MD History of Present Illness Mr. Santos is a 78 yo male with history of DMT2 on insulin, afib on eliquis at home, CKD stage 4, HTN, hypothyroidism, BPH and recurrent UTIs who presents to the hospital on 07/19 for RUQ pain that has been intermittent but increasing in severity and frequency in the last week. Pain is not specificaly associated with eating. Pain just comes and goes in waves. Pain about 2/10. No associated fever, chills, nausea, vomiting but has felt increase in gas and bloating. No prior issues with gallbladder in the past. No abdominal surgeries. Takes Eliqu is for afib, last dose was yesterday morning (07/19/24) . Denies chest pain or shortness of breath, diarrhea, blood in stools, acholic stools, dysuria, blood in urine. Allergies Allergy/AdvReac Type Severity Reaction Status Date / Time orange flavor Allergy Severe Gastrointestinal Verified 07/19/24 16:42 Upset orange juice Allergy Severe Gastrointestinal Verified 07/19/24 16:42 Upset orange Allergy Unknown Gastrointestinal Verified 07/19/24 16:42 Upset ciprofloxacin [From Cipro] AdvReac Intermediate Upset Verified 07/19/24 16:42 Stomach, Nausea, GI Discomfort Home Medications Medication Instructions Recorded Confirmed Type apixaban 5 mg tablet 5 mg PO BID 04/25/21 07/19/24 History cholecalciferol (vitamin D3) 25 25 mcg PO QAM 04/25/21 07/19/24 History mcg (1,000 unit) capsule folic acid 1 mg tablet 1 mg PO QAM 04/25/21 07/19/24 History levothyroxine 88 mcg capsule 88 mcg PO DAILYBB 04/25/21 07/19/24 History ferrous sulfate 325 mg (65 mg 325 mg PO QAM 06/30/21 07/19/24 History iron) tablet (FeroSul) tamsulosin 0.4 mg capsule 0.4 mg PO HS #30 caps 02/18/22 07/19/24 Rx fluticasone propionate 50 1 spray intranasal BID PRN 08/06/23 07/19/24 History mcg/actuation nasal Congestion spray,suspension metoprolol succinate 25 mg 25 mg PO DAILY 08/06/23 07/19/24 History tablet,extended release 24 hr ascorbic acid (vitamin C) 500 mg 500 mg PO DAILY 11/17/23 07/19/24 History tablet (Vitamin C) atorvastatin 20 mg tablet 0 mg PO HS 05/07/24 07/19/24 History insulin glargine 100 unit/mL (3 18 unit subcut HS 05/09/24 07/19/24 History mL) subcutaneous pen (Lantus Solostar U-100 Insulin) lisinopril 20 mg tablet 20 mg PO DAILY 05/09/24 07/19/24 History furosemide 20 mg tablet 20 mg PO QAM 07/19/24 07/19/24 History Patient History Medical History Recurrent UTI Cholelithiasis Sleep apnea 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 [place] Vitamin D deficiency 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 Chronic kidney disease, stage 4 (severe) Hyperlipidemia Age-related nuclear cataract, right eye Surgical History H/O skin graft History of arthroplasty of right ankle Family History Grandfather (Maternal) Diabetes Grandfather (Paternal) Arteriosclerosis Stroke Mother Hypertension Sepsis Father Stomach ulcer Myocardial infarction Denies family history of Ovarian cancer Prostate cancer Breast cancer Lung cancer Colorectal cancer Social History Smoking Status: Never smoker Second Hand Exposure: Yes; Do You Dip or Chew Tobacco: No; Hx Alcohol Use: No Hx Substance Use: No Preferred Language: British Communication Ability: Effective [employer] Supervisor Required: No Beliefs That Will Affect Care: None marital status: / Current Living Situation: Alone Current Living Situation Comment: Lives alone in [address]. 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 How many Children do You have: 1 Feels Safe at Home: Yes Diet: regular during the past year weight has: remained stable Dental Care, Regularly: No Physical Activity Frequency: Does not Exercise Seatbelt Use: always Sunscreen Use: No Do you think of yourself as: straight/heterosexual Gender Identity: Male Assistive Devices: Cane and Glasses Review of Systems Review of Systems: All systems reviewed & are unremarkable except as noted in HPI & below Physical Exam Constitutional: WD/WN, vitals as above + morbidly obese, cooperative and comfortable; no acute distress and not ill appearing Respiratory: normal respiratory effort, lungs clear to auscultation Cardiovascular: Rate/Rhythm: + irregularly irregular Heart Sounds: normal S1 and normal S2 Gastrointestinal (Abdomen): Inspection/Auscultation: abdomen normal to inspection; abdomen not distended Percussion/Palpation: + abdomen tender (RUQ) and abdomen soft; no guarding, abdomen not rigid and abdomen not firm Skin: no rashes, warm and dry no jaundice Psychiatric: Orientation: alert and oriented x 3 Results & Data Vital Signs (Past 12 Hours) Vital Signs Temp Pulse Pulse Resp BP Pulse Ox O2 Del Method 07/20/24 07:36 36.4 C L 60 18 159/72 H 96 Room Air 07/20/24 07:25 Room Air, CPAP 07/20/24 03:42 59 L 17 98 07/20/24 03:01 36.4 C 59 L 20 186/75 H 98 CPAP 07/20/24 00:47 62 20 96 07/19/24 23:00 36.5 C 68 20 208/82 H 99 Nasal Cannula 07/19/24 22:15 69 O2 Flow Rate 07/20/24 07:36 04/10/25 07:25 07/20/24 03:42 2 07/20/24 03:01 07/20/24 00:47 2 07/19/24 23:00 2 07/19/24 22:15 Diagnostic Findings Technique: Sonography was performed of the right upper quadrant of the abdomen Findings: There is suspected mild fatty infiltration of the liver. No definite liver mass is seen. There is normal directional flow in the main portal vein Multiple gallstones are present. The gallbladder is distended. There is gallbladder sludge. The gallbladder wall is mildly thickened, measuring 4 mm. Overlying tenderness was detected There is no intrahepatic or extrahepatic bile duct dilatation. The common bile duct measures 5 mm The right kidney measures 11.2 cm in length. There is no hydronephrosis. No definite renal calculus or mass is seen The visualized pancreas, aorta, and IVC appear unremarkable. No ascites is seen Impression: Acute cholecystitis ACT 112: Positive. There are findings on this exam that require communication between the performing entity and the patient following Patient Test Result Information Act ([place] ACT 112) guidelines.
--- NOTE | 2024-07-20 11:12 | Hospitalist Progress Note ---
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 He presented to the hospital after 1 week of intermittent RUQ pain that acutely worsened on 07/19 and was found to have acute cholecystitis. #Acute cholecystitis Gallbladder ultrasound showed acute cholecystitis; HIDA pending Mild leukocytosis remains. T bili, LFTs, lipase WNL General surgery following - anticipate lap miguel 07/21 Continue clear liquid diet for now then NPO at midnight Continue IV Zosyn Pain control with Tylenol first line, morphine for breakthrough pain #CKD stage 4 Baseline Cr 2.2-2.4. Creatinine currently at baseline Continue lisinopril 20 mg daily #DMT2 on insulin Home regimen of Glargine 18 units HS Reduced to Glargine 5 units BID given limited diet / NPO status A1c 6.1% #A fib Continue metoprolol 25 mg daily Hold Eliquis with upcoming surgical intervention #Recurrent UTIs UA suggestive of infection, prelim urine culture growing pseudomonas Continue IV Zosyn as above; history of multiple pansensitive pseudomonas UTIs #Hypothyroidism TSH 0.9 - continue levothyroxine #BPH Continue home tamsulosin #HFpEF Echocardiogram with similar findings compared to study in February 2022. EF 60- 65%, no regional wall motion abnormalities, no significant valvular abnormalities #Chronic venous stasis Baseline level of LE edema per patient; clinically appears euvolemic Hold Bumex given upcoming surgery - can resume after surgery VTE ppx: holding home eliquis due to upcoming surgery Dispo: anticipate surgical intervention tomorrow 07/21 Admission and Anticipated Discharge Date Admission Date: July 19, 2024 Subjective Patient seen and evaluated at bedside. He reports 2/10 RUQ abdominal pain. He states that he is very hungry and has some abdominal cramping secondary to his hunger. He denies nausea or vomiting. Denies any additional complaints or concerns at this time. He states that his abdominal pain has been intermittent for approximately 1 week, but acutely worsened yesterday which brought him to the ED. We discussed the recommendation from the surgical team of getting a H SALINAS scan for further evaluation. Surgical plan continuing to develop. Physical Exam Physical Exam: General: No acute distress, nondiaphoretic, well-developed, well-nourished. Skin: Bilateral lower extremities with stasis dermatitis and 1+ pitting edema. Cardiac: Regular rate and rhythm without murmurs gallops or rubs. Pulm: Clear to auscultation bilaterally without wheezes, rales or rhonchi. Normal respiratory effort. 96% on room air. Abdominal: Soft, distended secondary to body habitus. Tender to palpation of RUQ. Bowel sounds present. Neuro: A&O x3. No focal neurological deficits. Results & Data Results & Data Vital Signs (Past 12 Hours) Vital Signs Temp Pulse Pulse Resp BP Pulse Ox O2 Del Method 07/20/24 10:02 54 L 07/20/24 07:36 97.5 F L 60 18 159/72 H 96 Room Air 07/20/24 07:25 Room Air, CPAP 07/20/24 03:42 59 L 17 98 07/20/24 03:01 97.6 F 59 L 20 186/75 H 98 CPAP 07/20/24 00:47 62 20 96 O2 Flow Rate 07/20/24 10:02 07/20/24 07:36 07/20/24 07:25 07/20/24 03:42 2 07/20/24 03:01 07/20/24 00:47 2 Laboratory Results Reviewed CBC Reviewed CMP, chemistries Reviewed UA, urine culture Diagnostic Findings Reviewed GB US Reviewed echocardiogram PG Care Time/CCT Total # of Minutes Spent Total Time Spent with Patient: Total time spent is greater than 50% in coordination of care (as documented) at patient's floor/unit and/or counseling patient: Coding Level of Care Code 62049 SUB INP/OBS CARE 2/35MIN Diagnoses Acute cholecystitis K81.0 Chronic kidney disease, stage 4 (severe) N18.4 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
[2024-07-20] MEDS: ONDANSETRON INJ 2 MG/ML 2 ML VIAL IV PRN (15:30)
--- NOTE | 2024-07-20 16:32 | XCELERA ---
[id number] [id number]
[2024-07-20] MEDS ORDERED: PIPERACILLIN/TAZOBACTAM 4.5 GM/100 ML BAG IV SCH (20:00)
--- NOTE | 2024-07-20 22:43 | Electrocardiogram Report ---
Test Reason : Blood Pressure : */* mmHG Vent. Rate : 69 BPM Atrial Rate : 69 BPM P-R Int : 344 ms QRS Dur : 110 ms QT Int : 416 ms P-R-T Axes : 89 -37 76 degrees QTcB Int : 445 ms Sinus rhythm with 1st degree A-V block Left axis deviation Abnormal ECG When compared with ECG of 02-May-2024 08:19, No significant change was found Confirmed by Rafael Hong ([id number]) on 07/20/2024 10:43:33 PM Referred By: REFERRED SELF Confirmed By: Rafael Hong
[2024-07-21 06:17] LABS: Basophils # (auto) 0.06 K/uL (0.00-0.20); Basophils % (auto) 0.5 %; Eosinophils # (auto) 0.15 K/uL (0.00-0.50); Eosinophils % (auto) 1.2 %; Hematocrit (blood only) 35.1 % (42.0-52.0); Hemoglobin 11.3 g/dl (14.0-18.0); Immature Granulocytes # (auto) 0.06 K/uL (0.01-0.20); Immature Granulocytes % (auto) 0.5 %; Lymphocytes # (auto) 0.92 K/uL (1.20-3.40); Lymphocytes % (auto) 7.2 %; Mean Corpuscular Hemoglobin 30.7 pg (25.0-34.0); Mean Corpuscular Hgb Conc 32.2 g/dL (32.0-36.0); Mean Corpuscular Volume 95.4 fL (80.0-100.0); Mean Platelet Volume 10.3 fL (9.4-12.4); Monocytes # (auto) 0.84 K/uL (0.11-0.59); Monocytes % (auto) 6.6 %; Neutrophils # (auto) 10.68 K/uL (1.40-6.50); Platelet Count 267 K/uL (130-400); RDW Coefficient of Variation 15.5 % (11.5-14.5); RDW Standard Deviation 54.3 fL (36.4-46.3); Red Blood Count 3.68 M/uL (4.70-6.10); White Blood Count 12.71 K/ul (4.8-10.8)
[2024-07-21 06:35] LABS: Albumin Globulin Ratio 0.8 (0.9-2); Albumin Level 3.2 gm/dl (3.4-5.0); BUN Creatinine Ratio 10.4 (10-20); Bilirubin,Total 0.8 mg/dl (0.2-1.0); Calcium 9.1 mg/dl (8.6-10.3); Potassium 4.4 mmol/L (3.5-5.1); Total Protein 7.2 gm/dl (6.0-8.3)
--- NOTE | 2024-07-21 09:21 | Surgery Progress Note ---
Date of Service July 21, 2024 Assessment & Plan (1) Acute cholecystitis: Plan: Pt with acute cholecystitis has been off Eliquis since 07/19/24 obese abd. distended, TTP RUQ has been npo , with sip of water this am with meds pt scheduled for a robotic laparoscopic cholecystectomy with Dr Russell tentatively for 1pm today pt denies questions at this time Admission and Anticipated Discharge Date Admission Date: July 19, 2024 Supervising Physician Co-Signing Physician Notes I have seen and examined this patient this am. He will be taken to the OR for robotic assisted/laparoscopic cholecystectomy. Subjective npo since mn took sip this am with meds would like to proceed with surgical intervention Review of Systems Gastrointestinal: + abdominal pain Physical Exam Gastrointestinal (Abdomen): Inspection/Auscultation: + abdomen distended Percussion/Palpation: + abdomen tender (RUQ) and abdomen soft Results & Data Vital Signs (Past 12 Hours) Vital Signs Temp Pulse Pulse Resp BP BP Pulse Ox 07/21/24 07:41 98.1 F 64 16 176/78 H 97 07/21/24 05:54 59 L 07/21/24 04:07 98.1 F 65 20 192/80 H 95 07/21/24 02:46 62 16 98 07/20/24 23:07 98.1 F 77 20 209/81 H 97 07/20/24 22:55 65 23 98 07/20/24 21:41 61 O2 Del Method O2 Flow Rate 07/21/24 07:41 Room Air 07/21/24 05:54 07/21/24 04:07 CPAP 07/21/24 02:46 2 07/20/24 23:07 CPAP 07/20/24 22:55 2 07/20/24 21:41 Results CBC w Diff Results: RBC 3.68 M/uL (4.70-6.10) L 07/21/24 WBC 12.71 K/ul (4.8-10.8) H 07/21/24 Hgb 11.3 g/dl (14.0-18.0) L 07/21/24 Hct 35.1 % (42.0-52.0) L 07/21/24 MCV 95.4 fL (80.0-100.0) 07/21/24 MCH 30.7 pg (25.0-34.0) 07/21/24 MCHC 32.2 g/dL (32.0-36.0) 07/21/24 RDW Standard Deviation 54.3 fL (36.4-46.3) H 07/21/24 RDW Coefficient of Variation 15.5 % (11.5-14.5) H 07/21/24 Plt Count 267 K/uL (130-400) 07/21/24 MPV 10.3 fL (9.4-12.4) 07/21/24 Neutrophils (%) (Auto) 84.0 % 07/21/24 Lymphocytes (%) (Auto) 7.2 % 07/21/24 Monocytes # (Auto) 0.84 K/uL (0.11-0.59) H 07/21/24 Eosinophils # (Auto) 0.15 K/uL (0.00-0.50) 07/21/24 Immature Granulocyte % (Auto) 0.5 % 07/21/24 Neutrophils # (Auto) 10.68 K/uL (1.40-6.50) H 07/21/24 Lymphocytes # (Auto) 0.92 K/uL (1.20-3.40) L 07/21/24 Monocytes # (Auto) 0.84 K/uL (0.11-0.59) H 07/21/24 Eosinophils # (Auto) 0.15 K/uL (0.00-0.50) 07/21/24 Basophils # (Auto) 0.06 K/uL (0.00-0.20) 07/21/24 Immature Granulocyte # (Auto) 0.06 K/uL (0.01-0.20) 5 Results CMP Results: Sodium 141 mmol/L (136-145) 07/21/24 Potassium 4.4 mmol/L (3.5-5.1) 07/21/24 Chloride 107 mmol/L (98-107) 07/21/24 Carbon Dioxide 29 mmol/L (21-32) 07/21/24 Anion Gap 5 (3-11) 07/21/24 BUN 22 mg/dl (6-23) 07/21/24 Creatinine 2.11 mg/dl (0.6-1.4) H 07/21/24 eGFR 31.45 07/21/24 Est GFR ( Amer) 28.2 ml/min 11/17/23 Est GFR (Non-Af Amer) 32 05/25/24 BUN/Creatinine Ratio 10.4 (10-20) 07/21/24 Glucose 141 mg/dl (70-99(Fasting)) H 07/21/24 Calcium 9.1 mg/dl (8.6-10.3) 07/21/24 Phosphorus 3.6 mg/dl (2.5-4.9) 04/25/24 Total Bilirubin 0.8 mg/dl (0.2-1.0) 07/21/24 Direct Bilirubin 0.2 mg/dL (0-0.2) 11/26/23 AST 14 U/L (13-39) 07/21/24 ALT 13 U/L (7-52) 07/21/24 Alkaline Phosphatase 51 U/L (34-104) 07/21/24 Total Protein 7.2 gm/dl (6.0-8.3) 07/21/24 Albumin 3.2 gm/dl (3.4-5.0) L 07/21/24 Globulin 4.0 gm/dl (2.5-4.0) 07/21/24 Albumin/Globulin Ratio 0.8 (0.9-2) L 07/21/24 Lactate Dehydrogenase 126 U/L (86-244) 11/12/23 PG Care Time/CCT Total # of Minutes Spent Total Time Spent with Patient: Total time spent is greater than 50% in coordination of care (as documented) at patient's floor/unit and/or counseling patient: Coding Level of Care Code 30789 SUB INP/OBS CARE 05/06MIN Diagnoses Acute cholecystitis K81.0
--- NOTE | 2024-07-21 11:12 | Hospitalist Progress Note ---
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 He presented to the hospital after 1 week of intermittent RUQ pain that acutely worsened on 07/19 and was found to have acute cholecystitis. #Acute cholecystitis Gallbladder ultrasound showed acute cholecystitis. HIDA was cancelled by general surgery Mild leukocytosis remains. T bili, LFTs, lipase WNL General surgery following - lap miguel 07/21 Continue IV Zosyn Pain control with Tylenol first line, morphine for breakthrough pain #CKD stage 4 Baseline Cr 2.2-2.4. Creatinine currently at baseline Continue lisinopril 20 mg daily #DMT2 on insulin Home regimen of Glargine 18 units HS Reduced to Glargine 5 units BID given limited diet / NPO status A1c 6.1% #A fib Continue metoprolol 25 mg daily Hold Eliquis with upcoming surgical intervention #Recurrent UTIs UA suggestive of infection, prelim urine culture growing 2 types of pseudomonas, both sensitive to Zosyn Continue IV Zosyn as above; history of multiple pansensitive pseudomonas UTIs #Hypothyroidism TSH 0.9 - continue levothyroxine #BPH Continue home tamsulosin #HFpEF Echocardiogram with similar findings compared to study in February 2022. EF 60- 65%, no regional wall motion abnormalities, no significant valvular abnormalities #Chronic venous stasis Baseline level of LE edema per patient; clinically appears euvolemic Hold Bumex given upcoming surgery - can resume after surgery VTE ppx: holding home Eliquis in perioperative period Dispo: Regina rivera today 07/21 Admission and Anticipated Discharge Date Admission Date: July 19, 2024 Subjective Attempted to see patient this morning, however he was sleeping soundly with an eye mask on and wearing his CPAP. He did not arouse to my voice. Will reround later. Intended to round on patient postoperatively, however as of 1699, it appears he is still in the OR. Labs and vitals reviewed. Will round on patient tomorrow. Review of Systems Review of Systems: Other Physical Exam Physical Exam: Sleeping soundly in bed. Results & Data Results & Data Vital Signs (Past 12 Hours) Vital Signs Temp Pulse Pulse Resp BP BP Pulse Ox 07/21/24 07:41 98.1 F 64 16 176/78 H 97 07/21/24 05:54 59 L 07/21/24 04:07 98.1 F 65 20 192/80 H 95 07/21/24 02:46 62 16 98 O2 Del Method O2 Flow Rate 07/21/24 07:41 Room Air 07/21/24 05:54 07/21/24 04:07 CPAP 07/21/24 02:46 2 Laboratory Results Reviewed CBC with differential Reviewed CMP Reviewed urine culture PG Care Time/CCT Total # of Minutes Spent Total Time Spent with Patient: Total time spent is greater than 50% in coordination of care (as documented) at patient's floor/unit and/or counseling patient: Coding Level of Care Code 00346 SUB INP/OBS CARE 05/06MIN Diagnoses Acute cholecystitis K81.0 Chronic kidney disease, stage 4 (severe) N18.4 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
[2024-07-21] MEDS ORDERED: ONDANSETRON INJ 2 MG/ML 2 ML VIAL ONE ×2 (12:49→15:30)
[2024-07-21] MEDS ORDERED: PROPOFOL IV EMULSION 10 MG/ML 20 ML VIAL IV ONE ×2 (12:49→12:50)
[2024-07-21] MEDS ORDERED: LIDOCAINE 2% 2 ML VIAL/AMP(20MG/ML) INFIL ONE (12:49)
[2024-07-21] MEDS ORDERED: fentaNYL citrate PF 100 MCG/2 ML VIAL ONE ×2 (12:49→14:41)
[2024-07-21] MEDS ORDERED: DEXAMETHASONE SOD INJ 4 MG/ML VIAL ONE (12:49)
[2024-07-21] MEDS ORDERED: MIDAZOLAM HCL 1 MG/ML 2ML VIAL ONE (12:49)
[2024-07-21] MEDS ORDERED: LARYING-O-JET KIT (LTA) ONE (12:50)
[2024-07-21] MEDS ORDERED: ROCURONIUM BROMIDE 10 MG/ML 5 ML VIAL IV ONE ×2 (12:50→14:40)
[2024-07-21] MEDS: LACTATED RINGER'S 1,000 ML IV SCH ×2 (12:57→18:19)
[2024-07-21] MEDS: INDOCYANINE GREEN 25 MG VIAL INJ ONE ×2 (13:08)
--- NOTE | 2024-07-21 13:14 | Anesthesiology Consultation ---
Date of Service July 21, 2024 Assessment & Plan Chart Review Chart Review: Acceptable Risk for Surgery and Patient NOT seen in Pre Admission Testing Consults Requested none ASA ASA4 Proposed Anesthesia Anesthesia Type: General Risk / Benefits Reviewed With: PT / POA / Parent / Guardian, Accepts Plan and Informed Consent Obtained History Surgery Operation Date: 07/20/24 11:05 Proposed Procedures p Laparoscopic Cholecystectomy - Morales Mendoza MD Operation Date: 07/21/24 07:00 Proposed Procedures p Robotic Laparoscopic Cholecystectomy - Kiran Russell DO Height/Weight Height: 5 ft 10 in Weight: 141.6 kg Allergies Allergy/AdvReac Type Severity Reaction Status Date / Time orange flavor Allergy Severe Gastrointestinal Verified 07/19/24 16:42 Upset orange juice Allergy Severe Gastrointestinal Verified 07/19/24 16:42 Upset orange Allergy Unknown Gastrointestinal Verified 07/19/24 16:42 Upset ciprofloxacin [From Cipro] AdvReac Intermediate Upset Verified 07/19/24 16:42 Stomach, Nausea, GI Discomfort Medications Home Medications Medication Instructions Recorded Confirmed Last Taken apixaban 5 mg tablet 5 mg PO BID 04/25/21 07/19/24 01/05/23 cholecalciferol (vitamin D3) 25 25 mcg PO QAM 04/25/21 07/19/24 01/05/23 mcg (1,000 unit) capsule folic acid 1 mg tablet 1 mg PO QAM 04/25/21 07/19/24 01/05/23 levothyroxine 88 mcg capsule 88 mcg PO DAILYBB 04/25/21 07/19/24 01/05/23 ferrous sulfate 325 mg (65 mg 325 mg PO QAM 06/30/21 07/19/24 01/05/23 iron) tablet (FeroSul) tamsulosin 0.4 mg capsule 0.4 mg PO HS #30 caps 02/18/22 07/19/24 01/05/23 fluticasone propionate 50 1 spray intranasal BID PRN 08/06/23 07/19/24 Unknown mcg/actuation nasal Congestion spray,suspension metoprolol succinate 25 mg 25 mg PO DAILY 08/06/23 07/19/24 Unknown tablet,extended release 24 hr ascorbic acid (vitamin C) 500 mg 500 mg PO DAILY 11/17/23 07/19/24 Unknown tablet (Vitamin C) atorvastatin 20 mg tablet 0 mg PO HS 05/07/24 07/19/24 Unknown insulin glargine 100 unit/mL (3 18 unit subcut HS 05/09/24 07/19/24 Unknown mL) subcutaneous pen (Lantus Solostar U-100 Insulin) lisinopril 20 mg tablet 20 mg PO DAILY 05/09/24 07/19/24 Unknown furosemide 20 mg tablet 20 mg PO QAM 07/19/24 07/19/24 Unknown Active Medications Generic Name Dose Route Start Last Admin Trade Name Freq PRN Reason Stop Dose Admin Ferrous Sulfate 325 mg 07/20/24 09:00 07/21/24 09:03 Ferrous Sulfate 325 Mg Tab PO 08/19/24 08:59 325 mg QAM LEE Administration Acetaminophen 1,000 mg in 100 mls @ 400 mls/hr 07/19/24 20:57 07/21/24 06:24 Ofirmev IV 07/22/24 20:56 Infused Q8H PRN Infusion Pain or Fever Piperacillin Sod/Tazobactam Sod 4.5 gm in 100 mls @ 25 mls/hr 07/19/24 20:00 07/21/24 11:26 Zosyn IV 07/23/24 19:59 25 mls/hr Q8H LEE Administration Protocol Lactated Ringer's 1,000 mls @ 15 mls/hr 07/21/24 13:00 07/21/24 12:57 Lr IV 07/22/24 12:59 15 mls/hr .Q24H LEE Administration Insulin Glargine 5 units 07/19/24 21:00 07/21/24 09:04 Lantus Per Unit Charge SQ 08/18/24 20:59 Not Given BID LEE Levothyroxine Sodium 88 mcg 07/20/24 06:30 07/21/24 05:55 Levothyroxine Sodium 88 Mcg Tablet PO 08/19/24 06:29 88 mcg DAILYBB LEE Administration Lisinopril 20 mg 07/20/24 09:00 07/21/24 09:03 Lisinopril 20 Mg Tab PO 08/19/24 08:59 20 mg DAILY LEE Administration Metoprolol Succinate 25 mg 07/20/24 09:00 07/20/24 20:45 Metoprolol Succ 25mg Ext Rel Tab PO 08/19/24 08:59 25 mg DAILY LEE Administration Ondansetron HCl 4 mg 07/19/24 20:57 07/21/24 05:54 Ondansetron Inj 2 Mg/Ml 2 Ml Vial IV 08/18/24 20:56 4 mg Q6H PRN Administration Nausea Tamsulosin HCl 0.4 mg 07/19/24 21:00 07/20/24 20:45 Tamsulosin Hcl 0.4 Mg Cap PO 08/18/24 20:59 0.4 mg HS LEE Administration NPO Date Last Intake of Fluids: 07/21/24 Time Last Intake of Fluids: 09:00 Date Last Intake of Solids: 07/20/24 Time Last Intake of Solids: 12:00 Past Medical History Medical History CKD stage 3b, GFR 30-44 ml/min Type 2 diabetes mellitus with obesity Hypertension Morbid obesity with BMI of 45.0-49.9, adult Hypothyroidism Paroxysmal atrial fibrillation Anemia due to chronic kidney disease BPH w/o urinary obs/LUTS Recurrent UTI Cholelithiasis Sleep apnea 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 [place]er Vitamin D deficiency 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 Chronic kidney disease, stage 4 (severe) Hyperlipidemia Age-related nuclear cataract, right eye Exercise / Class Metabolic Activity III < 4 Walking/Shop/Light housework Past Family History Family History Grandfather (Maternal) Diabetes Grandfather (Paternal) Arteriosclerosis Stroke Mother Hypertension Sepsis age 79 Father Stomach ulcer Myocardial infarction age 75 Denies family history of Ovarian cancer Prostate cancer Breast cancer Lung cancer Colorectal cancer Past Surgical History Surgical History H/O skin graft 2nd and 3rd degree pastrana on body 1994 History of arthroplasty of right ankle has 6 pins in it, had a Fx Past Anesthesia History No Hx of Anesthesia Complications and No Family Hx of Anesthesia Complications History of PONV No Hx of PONV and No Hx of Motion Sickness Social History Smoking Status: Never smoker Do You Dip or Chew Tobacco: No Hx Alcohol Use: No Hx Substance Use: No substance use type: does not use Physical Exam Vital Signs Last Vital Signs Temp 36.8 C 07/21/24 12:48 Pulse 70 07/21/24 12:48 Resp 22 07/21/24 12:48 BP 159/69 H 07/21/24 12:48 Pulse Ox 94 07/21/24 12:48 O2 Del Method Room Air 07/21/24 12:48 O2 Flow Rate 2 07/21/24 02:46 Constitutional + morbidly obese; no acute distress ENMT Mouth: + dentition abnormality and + poor dentition Thyromental Distance: > or= 3.5 Finger Breadths Mallampati Class: III Neck normal visual inspection, trachea midline and + facial hair; neck extension not limited Respiratory normal respiratory effort Auscultation: + diminished lung sounds Cardiovascular Rate/Rhythm: regular rate and regular rhythm Heart Sounds: no murmur Vessels: no carotid bruit Musculoskeletal Spine: normal cervical ROM and no pain with cervical ROM Extremities: extremities normal to inspection; full ROM of extremities Neurologic moves all extremities Motor/Sensory: no sensory deficit Psychiatric Orientation: alert and oriented x 3 Testing Laboratory Results 07/21/24 05:37 07/21/24 05:37 Hemoglobin A1c 6.1 % (4.5-5.6) H 07/20/24 05:25 Urine Color Yellow 07/19/24 13:54 Urine Appearance Cloudy (Clear) A 07/19/24 13:54 Urine pH 6.5 (4.5-7.5) 07/19/24 13:54 Ur Specific Benge 1.014 (1.000-1.030) 07/19/24 13:54 Urine Protein 1+ (Negative) H 07/19/24 13:54 Urine Glucose (UA) Negative (Negative) 07/19/24 13:54 Urine Ketones Negative (Negative) 07/19/24 13:54 Urine Nitrite Positive (Negative) A 07/19/24 13:54 Ur Leukocyte Esterase 3+ (Negative) H 07/19/24 13:54 Urine WBC (Auto) >50 /hpf (0-5) H 07/19/24 13:54 Urine RBC (Auto) 0-2 /hpf (0-2) 07/19/24 13:54 U Hyaline Cast (Auto) 0-2 /lpf (0-2) 07/19/24 13:54 U Epithel Cells (Auto) 0-2 /hpf (0-2) 07/19/24 13:54 Urine Bacteria (Auto) 3+ (None Seen) H 07/19/24 13:54 07/19/24 13:54 Urine Culture - Final Urine,Clean Catch Pseudomonas aeruginosa Pseudomonas aeruginosa#2 07/21/24 07/21/24 07/21/24 12:34 12:11 08:36 POC Glucose 126 H 108 H 127 H Electrocardiogram Date: 07/19/24 Findings: + NSR @ (@ 69 w/ 1st degree AVB;LAD) Chest X-Ray Date: 05/06/24 Findings: + NAD Echocardiogram Date: 07/20/24 EF: 60% LV Function: normal RWMA: + none Other Findings: + atrial enlargement (mild RA dilation) and + LVH (mild) Valvular Disease: + no significant valvular disease
[2024-07-21] MEDS ORDERED: SUCCINYLCHOLINE CHLORIDE 20 MG/ML 10 ML VIAL IV ONE (13:16)
[2024-07-21] MEDS ORDERED: NALOXONE HCL 0.4 MG/1 ML VIAL/CARP IV PRN (13:18)
[2024-07-21] MEDS ORDERED: ONDANSETRON INJ 2 MG/ML 2 ML VIAL IV PRN (13:18)
[2024-07-21] MEDS ORDERED: LABETALOL HCL IV 5 MG/ML 20ML IV PRN (13:18)
[2024-07-21] MEDS ORDERED: PROMETHAZINE HCL 6.25 MG in SODIUM CHLORIDE 0.9% 50 ML IV PRN (13:18)
[2024-07-21] MEDS ORDERED: ATROPINE SULFATE 0.1 MG/ML 10ML SYR IV PRN (13:18)
[2024-07-21] MEDS ORDERED: FLUMAZENIL 0.1 MG/1 ML 10 ML VIAL IV PRN (13:18)
[2024-07-21] MEDS ORDERED: ePHEDrine sulfate 50 MG/ML AMP IV PRN (13:18)
[2024-07-21] MEDS ORDERED: ePHEDrine sulfate 50 MG/5 ML SYR ONE (13:48)
[2024-07-21] MEDS ORDERED: PHENYLEPHRINE 100MCG/ML 5ML SYR ONE ×2 (14:08→14:26)
[2024-07-21] MEDS ORDERED: SUGAMMADEX SODIUM 200 MG/2 ML VIAL IV ONE (14:22)
[2024-07-21] MEDS ORDERED: PHENYLEPHRINE HCL 10 MG/ML VIAL ONE (14:27)
[2024-07-21] MEDS: BUPIVACAINE 0.5 % 5 MG/1 ML MPF 30ML VIAL ONE (16:58)
--- NOTE | 2024-07-21 17:20 | Operative Report ---
PG Post Operative Report Pre & Post Diagnosis Operation Date: 07/21/24 07:00 Pre-Op Diagnosis: Acute Cholecystitis Post-Op Diagnosis: Acute Cholecystitis I identified the patient and participated in the time-out.: Yes Procedure Operation Date: 07/21/24 07:00 Actual Procedures p Robotic Laparoscopic Cholecystectomy(Not Applicable) - Kiran De La Rosa DO Surgeon Kiran Russell DO Heatset Winder Operator Ernestina Claros NP Estimated Blood Loss 100 Findings See Below Acutely infected gallbladder containing 2 very large stones measuring roughly 3 cm and greater than 4 cm. This was a very difficult gallbladder in a patient with a challenging body habitus please add a modifier for level of difficulty. Specimens Gallbladder Drains 19 [place] Emmanuel drain Anesthesia Type General Complications None Indications Acute cholecystitis Description of Procedure The patient was brought back to the operating room placed on the operating room table in supine position. He was connected to cardiac and oxygen monitoring, supplemental O2 was provided and SCDs were applied to bilateral lower extremities. The patient was administered general anesthesia and a secure airway was established. The abdomen was prepped and draped in typical sterile fashion and a timeout was conducted. Local anesthetic was used anesthetize the skin and subcutaneous tissues prior to making all incisions in each incision was made with an 11 blade. Intra- abdominal access was gained at the supraumbilical fold and this access point was confirmed using the saline drop test. CO2 insufflation was initiated to establish pneumoperitoneum to a goal pressure of 15 mmHg. Once this pressure was reached, an 8 mm robotic trocar was inserted using direct visualization with a 5 mm laparoscope and Optiview introducer. 2 additional 8 mm robotic incisions were inserted the left and right upper quadrants. A 5 mm assistant case manager trocar was inserted the far right upper quadrant. The OR table was positioned in reverse Trendelenburg and left side down. A very distended and firm gallbladder was identified at the right upper quadrant containing the impression of a black st one. The robot was deployed, docked, targeted and instruments were loaded. The gallbladder required decompression prior to being able to manipulated to perform the procedure. Upon decompression, very thick dark brown to black bile and sludge was encountered. The gallbladder was very friable and broke open when it was grasped for retraction. Contents were suctioned away throughout the procedure. At the console, a thick rind encasing the gallbladder was very oozy and cautery was used along the way to control bleeding. Dissection was carried out using alternating blunt and cautery dissection. Due to the patient's body habitus, it was very difficult to reach the infundibulum of the gallbladder. The gallbladder was then approached and the top-down maneuver. Alternating between top-down view and dissection and a traditional view eventually the cystic artery was isolated. This was ligated with 2 hemoclips proximally and 1 distally. Eventually the cystic duct was exposed. The friable gallbladder broke open in several locations and 2 very large dark black stones were expressed. The gallbladder was very friable and the infundibulum somewhat peeled away from the cystic duct. Expelling from the duct. The duct was controlled with 3 Hem-o-kobi clips. The gallbladder was completely removed. There was a fair amount of bleeding along the way that was controlled with cautery. The area was copiously irrigated and suctioned. A 19 [place] Emmanuel drain was inserted at the right upper quadrant subhepatic space. The gallbladder and large stones were inserted in the Endo Catch bag. These were removed via the left upper quadrant incision which had to be enlarged to allow for removal. The PRATEEK drain was secured in place with suture. The OR table was returned to the neutral position. Excess pneumoperitoneum was evacuated. The fascia at the left upper quadrant incision was closed using 0 Vicryl suture. Additional local anesthetic was used anesthetize the incisions further. The skin at the remaining 3 incisions was approximated using 4-0 Monocryl suture. The abdomen was wiped clean with a saline soaked lap pad and dried. The incisions were then sealed with Dermabond. The patient tolerated the procedure well. Anesthesia was discontinued, the secure airway was removed and he was transferred recovery in stable condition. I attest to the content of the Intraoperative Record and any orders documented therein. Any exceptions are noted below.
[2024-07-21] MEDS: fentaNYL citrate PF 100 MCG/2 ML VIAL IV PRN (17:35)
[2024-07-21] MEDS ORDERED: oxyCODONE HCL IR 5 MG TAB (IMMEDIATE RELEASE) PO PRN ×2 (17:38)
[2024-07-21] MEDS ORDERED: MoRPHine SULFATE 2 MG/ML CARP IV PRN (17:38)
--- NOTE | 2024-07-21 17:45 | Anesthesiology Progress Note ---
Date of Service July 21, 2024 Anesthesia Post Procedure Vital Signs Vital Signs: Temp Pulse Pulse Pulse Resp BP BP 07/21/24 17:35 75 20 124/61 07/21/24 17:25 75 18 137/63 07/21/24 17:15 36.7 C 75 16 137/59 L 07/21/24 12:48 36.8 C 70 22 159/69 H 07/21/24 11:34 36.8 C 64 16 187/80 H 07/21/24 07:41 36.7 C 64 16 176/78 H 07/21/24 05:54 59 L 07/21/24 04:07 36.7 C 65 20 192/80 H 07/21/24 02:46 62 16 07/20/24 23:07 36.7 C 77 20 209/81 H 07/20/24 22:55 65 23 07/20/24 21:41 61 07/20/24 20:30 07/20/24 19:20 36.6 C 63 20 193/78 H Pulse Ox O2 Del Method O2 Flow Rate 07/21/24 17:35 95 Oxymask 4 07/21/24 17:25 95 Oxymask 4 07/21/24 17:15 97 Oxymask 6 07/21/24 12:48 94 Room Air 07/21/24 11:34 98 BiPAP 07/21/24 07:41 97 Room Air 07/21/24 05:54 07/21/24 04:07 95 CPAP 07/21/24 02:46 98 2 07/20/24 23:07 97 CPAP 07/20/24 22:55 98 2 07/20/24 21:41 07/20/24 20:30 Room Air, CPAP 07/20/24 19:20 93 Room Air Pain Intensity Right Abdomen: Pain Intensity: 3 Abdomen: Pain Intensity: 5 Transfer of Care Handoff Completed per policy Notes Mental Status: alert / awake / arousable Patient Amnestic to Procedure: Yes Nausea / Vomiting: adequately controlled Pain: adequately controlled Airway Patency, RR, SpO2: stable & adequate BP & HR: stable & adequate Hydration State: stable & adequate Anesthetic Complications: no major complications apparent and Pt Satisfied with anesthetic care
[2024-07-21] MEDS ORDERED: NON-FORMULARY MEDICATION (Insulin Glargine [Lantus Solostar U-100 Insulin] 100 unit/mL (3 SQ SCH (21:00)
[2024-07-21] MEDS: MoRPHine SULFATE 4 MG/ML 1 ML CARP\\VIAL IV PRN (21:34)
[2024-07-22 08:30] LABS: Basophils # (auto) 0.02 K/uL (0.00-0.20); Basophils % (auto) 0.2 %; Eosinophils # (auto) 0.01 K/uL (0.00-0.50); Eosinophils % (auto) 0.1 %; Hemoglobin 10.2 g/dl (14.0-18.0); Immature Granulocytes # (auto) 0.07 K/uL (0.01-0.20); Immature Granulocytes % (auto) 0.5 %; Lymphocytes # (auto) 0.69 K/uL (1.20-3.40); Lymphocytes % (auto) 5.3 %; Mean Corpuscular Hemoglobin 29.6 pg (25.0-34.0); Mean Corpuscular Hgb Conc 30.9 g/dL (32.0-36.0); Mean Corpuscular Volume 95.7 fL (80.0-100.0); Mean Platelet Volume 10.2 fL (9.4-12.4); Monocytes # (auto) 1.13 K/uL (0.11-0.59); Monocytes % (auto) 8.7 %; Neutrophils # (auto) 11.06 K/uL (1.40-6.50); Neutrophils % (auto) 85.2 %; Platelet Count 255 K/uL (130-400); RDW Coefficient of Variation 15.9 % (11.5-14.5); RDW Standard Deviation 55.9 fL (36.4-46.3); Red Blood Count 3.45 M/uL (4.70-6.10); White Blood Count 12.98 K/ul (4.8-10.8)
[2024-07-22 08:48] LABS: Albumin Globulin Ratio 0.8 (0.9-2); BUN Creatinine Ratio 11.2 (10-20); Bilirubin,Total 0.8 mg/dl (0.2-1.0); Calcium 8.8 mg/dl (8.6-10.3); Creatinine Clr Calc Pharmacy 33.8 ml/min; Globulin 3.7 gm/dl (2.5-4.0); Potassium 4.5 mmol/L (3.5-5.1); Total Protein 6.7 gm/dl (6.0-8.3)
[2024-07-22] MEDS: CHOLECALCIFEROL 25 MCG (1000 UNITS) TAB PO SCH (10:01)
--- NOTE | 2024-07-22 10:08 | Surgery Progress Note ---
<Statement entered by Kiran Russell, DO - 07/22/24 10:59> I have seen and examined this patient with the surgical STUDENT FINANCIAL SERVICES COUNSELOR this am and I agree with this plan. We have requested LFTs to be added to the labs drawn this am and will follow up. Date of Service July 22, 2024 Assessment & Plan (1) Acute cholecystitis: Plan: POD [address] Russell obese abd. distended, TTP RUQ, surgical drain sanguinous, dermabond to port sites CDI has been npo , denies n/v will start on full liquids JACKIE WBC 12, continue IV abx while in house , lft wnl , vss will follow pt seen and examined with Dr Russell Admission and Anticipated Discharge Date Admission Date: July 19, 2024 Subjective pt with post surgical abd pain denies n/v , f/c , cp /sob Review of Systems Constitutional: no fever and no chills Respiratory: no dyspnea Cardiovascular: no chest pain Gastrointestinal: + abdominal pain; no nausea and no vomit ing Physical Exam Constitutional: cooperative and comfortable; no acute distress Respiratory: normal respiratory effort and able to speak in complete sentences; no respiratory distress Cardiovascular: Rate/Rhythm: regular rate Gastrointestinal (Abdomen): Inspection/Auscultation: + abdomen distended, + abdominal surgical incision (cdi dermabond ) and + abdominal surgical drain present Percussion/Palpation: + abdomen tender (RUQ) and abdomen soft Results & Data Vital Signs (Past 12 Hours) Vital Signs Temp Pulse Pulse Pulse Resp BP Pulse Ox 07/22/24 07:37 97.9 F 75 15 116/64 97 07/22/24 07:09 60 07/22/24 05:15 98.1 F 64 16 101/63 95 07/22/24 02:12 63 16 97 07/22/24 01:15 98.2 F 66 16 114/66 97 07/21/24 22:47 59 L 14 99 07/21/24 22:47 76 O2 Del Method O2 Flow Rate 07/22/24 07:37 CPAP 07/22/24 07:09 07/22/24 05:15 CPAP 07/22/24 02:12 2 07/22/24 01:15 CPAP 07/21/24 22:47 2 07/21/24 22:47 Results CBC w Diff Results: RBC 3.45 M/uL (4.70-6.10) L 07/22/24 WBC 12.98 K/ul (4.8-10.8) H 07/22/24 Hgb 10.2 g/dl (14.0-18.0) L 07/22/24 Hct 33.0 % (42.0-52.0) L 07/22/24 MCV 95.7 fL (80.0-100.0) 07/22/24 MCH 29.6 pg (25.0-34.0) 07/22/24 MCHC 30.9 g/dL (32.0-36.0) L 07/22/24 RDW Standard Deviation 55.9 fL (36.4-46.3) H 07/22/24 RDW Coefficient of Variation 15.9 % (11.5-14.5) H 07/22/24 Plt Count 255 K/uL (130-400) 07/22/24 MPV 10.2 fL (9.4-12.4) 07/22/24 Neutrophils (%) (Auto) 85.2 % 07/22/24 Lymphocytes (%) (Auto) 5.3 % 07/22/24 Monocytes # (Auto) 1.13 K/uL (0.11-0.59) H 07/22/24 Eosinophils # (Auto) 0.01 K/uL (0.00-0.50) 07/22/24 Immature Granulocyte % (Auto) 0.5 % 07/22/24 Neutrophils # (Auto) 11.06 K/uL (1.40-6.50) H 07/22/24 Lymphocytes # (Auto) 0.69 K/uL (1.20-3.40) L 07/22/24 Monocytes # (Auto) 1.13 K/uL (0.11-0.59) H 07/22/24 Eosinophils # (Auto) 0.01 K/uL (0.00-0.50) 07/22/24 Basophils # (Auto) 0.02 K/uL (0.00-0.20) 07/22/24 Immature Granulocyte # (Auto) 0.07 K/uL (0.01-0.20) 5 PG Care Time/CCT Total # of Minutes Spent Total Time Spent with Patient: Total time spent is greater than 50% in coordination of care (as documented) at patient's floor/unit and/or counseling patient: Coding Level of Care Code 33212 Post Operative Follow-Up Diagnoses Acute cholecystitis K81.0
[2024-07-22] MEDS ORDERED: Nursing to Pharmacy Communication SCH (13:30)
--- NOTE | 2024-07-22 18:25 | Hospitalist Progress Note ---
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 He presented to the hospital after 1 week of intermittent RUQ pain that acutely worsened on 07/19 and was found to have acute cholecystitis. #Acute cholecystitis Gallbladder ultrasound showed acute cholecystitis Mild leukocytosis remains, suspect aspect of stress demargination from surgery at play. T bili, LFTs, lipase WNL General surgery following - s/p lap miguel 07/21 Continue IV Zosyn Pain control with Tylenol first line, morphine for breakthrough pain Advanced to full liquid diet, well-tolerating #Recurrent UTIs UA suggestive of infection, prelim urine culture growing 2 types of pseudomonas, both sensitive to Zosyn Continue IV Zosyn as above; history of multiple pansensitive pseudomonas UTIs #Chronic venous stasis Baseline level of LE edema per patient; clinically appears euvolemic Hold Bumex given upcoming surgery - can resume after surgery #CKD stage 4 Baseline Cr 2.2-2.4. Creatinine currently near baseline Continue lisinopril 20 mg daily #DMT2 on insulin Home regimen of Glargine 18 units HS Reduced to Glargine 5 units BID given limited diet A1c 6.1% #A fib Continue metoprolol 25 mg daily Hold Eliquis in perioperative period until cleared to resume by surgery #Hypothyroidism - TSH 0.9 - continue levothyroxine #BPH - Continue home tamsulosin #HFpEF - Echocardiogram with similar findings compared to study in March 01. EF 60-65%, no regional wall motion abnormalities, no significant valvular abnormalities VTE ppx: holding home Eliquis in perioperative period Dispo: Anticipate discharge in next 24-48 hours. PT/OT ordered as patient is interested in home health services on discharge Updated daughter via phone call Admission and Anticipated Discharge Date Admission Date: July 19, 2024 Physical Exam Physical Exam: General: No acute distress, nondiaphoretic. Class III obesity. Skin: Bilateral lower extremities with stasis dermatitis and 1+ pitting edema. Cardiac: Regular rate and rhythm without murmurs gallops or rubs. Pulm: Diminished at bases bilaterally but otherwise clear to auscultation. Normal respiratory effort. 92% on room air. Abdominal: Soft, distended secondary to body habitus. Expected postoperative tenderness. Bowel sounds present. Surgical sites covered with Dermabond. Surgical drain in place. Neuro: A&O x3. No focal neurological deficits. Results & Data Results & Data Vital Signs (Past 12 Hours) Vital Signs Temp Pulse Pulse Resp BP Pulse Ox O2 Del Method 07/22/24 16:06 98.1 F 65 17 110/64 92 Nasal Cannula 07/22/24 14:57 69 07/22/24 12:35 64 13 150/66 H 98 Nasal Cannula 07/22/24 07:37 97.9 F 75 15 116/64 97 CPAP 07/22/24 07:09 60 O2 Flow Rate 07/22/24 16:06 2 07/22/24 14:57 07/22/24 12:35 07/22/24 07:37 07/22/24 07:09 Laboratory Results Reviewed CBC Reviewed BMP Reviewed LFTs Reviewed urine culture PG Care Time/CCT Total # of Minutes Spent Total Time Spent with Patient: Total time spent is greater than 50% in coordination of care (as documented) at patient's floor/unit and/or counseling patient: Coding Level of Care Code 28364 SUB INP/OBS CARE 2/35MIN Diagnoses Acute cholecystitis K81.0 Chronic kidney disease, stage 4 (severe) N18.4 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
[2024-07-23] MEDS: ACETAMINOPHEN 500 MG TAB PO PRN (04:28)
--- NOTE | 2024-07-23 04:39 | Billing Data ---
Date of Service July 19, 2024 Coding Level of Care Code 50883 INT INP/OBS CARE
[2024-07-23 05:53] LABS: Basophils # (auto) 0.03 K/uL (0.00-0.20); Basophils % (auto) 0.3 %; Eosinophils # (auto) 0.23 K/uL (0.00-0.50); Eosinophils % (auto) 2.4 %; Hematocrit (blood only) 30.1 % (42.0-52.0); Hemoglobin 9.5 g/dl (14.0-18.0); Immature Granulocytes # (auto) 0.04 K/uL (0.01-0.20); Immature Granulocytes % (auto) 0.4 %; Lymphocytes # (auto) 1.01 K/uL (1.20-3.40); Lymphocytes % (auto) 10.6 %; Mean Corpuscular Hemoglobin 30.3 pg (25.0-34.0); Mean Corpuscular Hgb Conc 31.6 g/dL (32.0-36.0); Mean Corpuscular Volume 95.9 fL (80.0-100.0); Mean Platelet Volume 10.3 fL (9.4-12.4); Monocytes # (auto) 0.79 K/uL (0.11-0.59); Monocytes % (auto) 8.3 %; Neutrophils # (auto) 7.41 K/uL (1.40-6.50); Platelet Count 236 K/uL (130-400); RDW Coefficient of Variation 16.1 % (11.5-14.5); RDW Standard Deviation 56.5 fL (36.4-46.3); Red Blood Count 3.14 M/uL (4.70-6.10); White Blood Count 9.51 K/ul (4.8-10.8)
[2024-07-23 06:08] LABS: Albumin Globulin Ratio 0.8 (0.9-2); Albumin Level 2.9 gm/dl (3.4-5.0); BUN Creatinine Ratio 13.7 (10-20); Bilirubin,Total 0.6 mg/dl (0.2-1.0); Calcium 8.6 mg/dl (8.6-10.3); Creatinine Clr Calc Pharmacy 36.2 ml/min; Globulin 3.5 gm/dl (2.5-4.0); Potassium 4.2 mmol/L (3.5-5.1); Total Protein 6.4 gm/dl (6.0-8.3)
--- NOTE | 2024-07-23 12:11 | Hospitalist Progress Note ---
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 He presented to the hospital after 1 week of intermittent RUQ pain that acutely worsened on 07/19 and was found to have acute cholecystitis. #Acute cholecystitis Gallbladder ultrasound showed acute cholecystitis Leukocytosis now resolved. T bili, LFTs, lipase WNL General surgery following - s/p lap miguel 07/21 Acute blood loss anemia secondary to surgery - hgb continues to downtrend, continue to monitor, no indication for blood transfusion at this time Continue IV Zosyn Pain control with Tylenol first line, morphine for breakthrough pain Advanced to regular diet, monitor tolerance #Recurrent UTIs Urine culture growing 2 types of pseudomonas, both sensitive to Zosyn Continue IV Zosyn as above; history of multiple pansensitive pseudomonas UTIs #Chronic venous stasis Baseline level of LE edema per patient; clinically appears euvolemic Hold Bumex given upcoming surgery - can resume after surgery #CKD stage 4 Baseline Cr 2.2-2.4. Creatinine currently near baseline Continue lisinopril 20 mg daily #DMT2 on insulin Home regimen of Glargine 18 units HS Reduced to Glargine 5 units BID given limited diet A1c 6.1% #A fib Continue metoprolol 25 mg daily Hold Eliquis in perioperative period until cleared to resume by surgery #Hypothyroidism - TSH 0.9 - continue levothyroxine #BPH - Continue home tamsulosin #HFpEF - Echocardiogram with similar findings compared to study in February 2022. EF 60-65%, no regional wall motion abnormalities, no significant valvular abnormalities VTE ppx: holding home Eliquis in perioperative period Dispo: Anticipate discharge in next 24-48 hours. PT/OT ordered as patient is interested in home health services on discharge Admission and Anticipated Discharge Date Admission Date: July 19, 2024 Subjective Patient seen and evaluated in bedside chair. He reports ongoing expected postoperative discomfort around his surgical sites. He denies uncontrolled pain. Denies nausea. He reports surgery advanced him to a regular diet for lunch and he is looking forward to eating "real food" again. He has not yet been evaluated by PT/OT. He denies any additional complaints or concerns at this time. Physical Exam Physical Exam: General: No acute distress, nondiaphoretic. Class III obesity. Skin: Bilateral lower extremities with stasis dermatitis and 1+ pitting edema. Cardiac: Bradycardic rate in high 50s and regaular rhythm without murmurs gallops or rubs. Pulm: Diminished at bases bilaterally but otherwise clear to auscultation. Normal respiratory effort. 95% on room air. Abdominal: Soft, distended secondary to body habitus. Expected postoperative tenderness. Bowel sounds present. Surgical sites covered with Dermabond. Surgical drain in place draining serosanguineous fluid. Neuro: A&O x3. No focal neurological deficits. Results & Data Results & Data Vital Signs (Past 12 Hours) Vital Signs Temp Pulse Pulse Resp BP Pulse Ox O2 Del Method 07/23/24 08:11 97.7 F 57 L 15 106/64 96 CPAP 07/23/24 06:59 62 07/23/24 03:20 97.9 F 64 18 116/56 L 95 Nasal Cannula 07/23/24 02:09 70 14 99 O2 Flow Rate 07/23/24 08:11 2 07/23/24 06:59 07/23/24 03:20 2 07/23/24 02:09 2 Laboratory Results Reviewed CBC Reviewed CMP PG Care Time/CCT Total # of Minutes Spent Total Time Spent with Patient: Total time spent is greater than 50% in coordination of care (as documented) at patient's floor/unit and/or counseling patient: Coding Level of Care Code 78367 SUB INP/OBS CARE 2/35MIN Diagnoses Acute cholecystitis K81.0 UTI (urinary tract infection) N30.00 Hematuria presence: without hematuria Urinary tract infection type: acute cystitis Chronic kidney disease, stage 4 (severe) N18.4 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
--- NOTE | 2024-07-23 15:00 | Surgery Progress Note ---
Date of Service July 23, 2024 Assessment & Plan (1) Acute cholecystitis: Plan: POD 2 lap miguel. HD stable afebrile without leukocytosis. c/o dizziness when he went to get mobilized OOB today. H/H 9.5/30 from 10.2/33. PRATEEK drain sero sanguinous, dermabond to port sites CDI has been npo , denies n/v will start on low fat diet today H/H continues to trend down. Follow up H/H in the am. WBC WNL, continue IV abx while in house and may be discharged when H/H is stable, per medicine. No oral anticoagulation until H/H stable Admission and Anticipated Discharge Date Admission Date: July 19, 2024 Subjective Pt c/o dizziness today on mobilizing N nausea, hungry. Abd pain well controlled. Physical Exam Constitutional: + obese; no acute distress, not diaphore tic and not lethargic Respiratory: normal respiratory effort; no respiratory distress, no labored breathing and does not use accessory muscles Gastrointestinal (Abdomen): abdomen is obese the incisions are intact with Dermabond PRATEEK drain with serosanguinous drainage Results & Data Vital Signs (Past 12 Hours) Vital Signs Temp Pulse Pulse Resp BP Pulse Ox O2 Del Method 07/23/24 14:35 67 07/23/24 08:11 36.5 C 57 L 15 106/64 96 CPAP 07/23/24 06:59 62 07/23/24 03:20 36.6 C 64 18 116/56 L 95 Nasal Cannula O2 Flow Rate 07/23/24 14:35 07/23/24 08:11 2 07/23/24 06:59 07/23/24 03:20 2 PG Care Time/CCT Total # of Minutes Spent Total Time Spent with Patient: Total time spent is greater than 50% in coordination of care (as documented) at patient's floor/unit and/or counseling patient: Coding Level of Care Code 86320 Post Operative Follow-Up Diagnoses Acute cholecystitis K81.0
[2024-07-24 06:25] LABS: Hematocrit (blood only) 30.4 % (42.0-52.0); Hemoglobin 9.4 g/dl (14.0-18.0); Mean Corpuscular Hemoglobin 29.7 pg (25.0-34.0); Mean Corpuscular Hgb Conc 30.9 g/dL (32.0-36.0); Mean Corpuscular Volume 96.2 fL (80.0-100.0); Mean Platelet Volume 10.3 fL (9.4-12.4); Platelet Count 267 K/uL (130-400); RDW Coefficient of Variation 15.7 % (11.5-14.5); RDW Standard Deviation 55.6 fL (36.4-46.3); Red Blood Count 3.16 M/uL (4.70-6.10); White Blood Count 10.11 K/ul (4.8-10.8)
[2024-07-24 06:42] LABS: BUN Creatinine Ratio 12.7 (10-20); Calcium 8.9 mg/dl (8.6-10.3); Creatinine Clr Calc Pharmacy 19.7 ml/min; Potassium 4.2 mmol/L (3.5-5.1)
--- NOTE | 2024-07-24 08:21 | Surgery Progress Note ---
<Statement entered by Kiran Russell, DO - 07/24/24 15:53> I have seen and examined this patient this am with the surgical team. I agree with this plan. Date of Service July 24, 2024 Assessment & Plan (1) Acute cholecystitis: Plan: POD 3 lap miguel WBC 10, Hbg 9.4 (9.5). Cr 2.8 (2.4). Vitals are stable Patient feeling better today thus far than yesterday Post op pain present but tolerable He is on a regular diet without n/v. he is having + bowel function PRATEEK drain 70cc, remains serosang. Will leave in place at dispo Abx ended, no further needed from our standpoint Eliquis okay to be resumed tomorrow, 07/25 PT on board for d/c planning. He is stable from our standpoint when medically cleared Please call with any questions/concerns. f/u with dr. russell in ~1 wk for check up and possible drain removal as above. doing fine. not ready for d/c yet. continue current care. Admission and Anticipated Discharge Date Admission Date: July 19, 2024 Subjective Patient feeling a bit better. Reports feeling less "woozy" than yesterday. He is tolerating a diet, no nausea/vomiting. Reports + flatus and BM. Today is OOB to chair this morning. Some expected abdominal discomfort noted, but hasn't required any recent narcotics. Anxious about going home alone. Physical Exam Physical Exam: OOB to chair, awake/alert, no distress Gastrointestinal (Abdomen): Inspection/Auscultation: + abdomen distended (mild) and + abdominal surgical incision (c/d/i with dermabond, some ecchymosis of superior incision) Percussion/Palpation: + abdomen tender (expected post op discomfort ) and abdomen soft PRATEEK drain serosang., 70cc last 24 hrs Results & Data Vital Signs (Past 12 Hours) Vital Signs Temp Pulse Pulse Resp BP BP Pulse Ox 07/24/24 07:40 97.7 F 62 12 108/67 97 07/24/24 07:22 68 07/24/24 04:59 98.1 F 69 18 138/71 98 07/24/24 02:32 74 21 95 07/24/24 00:18 97.7 F 81 18 162/76 H 96 04/13/25 23:29 80 20 91 07/23/24 21:41 83 07/23/24 20:36 98.1 F 84 18 148/78 H 94 O2 Del Method O2 Flow Rate 07/24/24 07:40 Room Air 07/24/24 07:22 07/24/24 04:59 CPAP 07/24/24 02:32 3 07/24/24 00:18 CPAP 07/23/24 23:29 3 07/23/24 21:41 07/23/24 20:36 Room Air PG Care Time/CCT Total # of Minutes Spent Total Time Spent with Patient: Total time spent is greater than 50% in coordination of care (as documented) at patient's floor/unit and/or counseling patient: Coding Level of Care Code 43712 Post Operative Follow-Up Diagnoses Acute cholecystitis K81.0
--- NOTE | 2024-07-24 08:41 | Hospitalist Progress Note ---
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 He presented to the hospital after 1 week of intermittent RUQ pain that acutely worsened on 07/19 and was found to have acute cholecystitis on gallbladder ultrasound. S/p laparoscopic cholecystectomy on 07/21. Leukocytosis now resolved. T bili, LFTs, lipase WNL. #Acute cholecystitis Acute blood loss anemia secondary to surgery - hgb stabilized now. Can resume anticoagulation tomorrow 07/25 per surgery Antibiotic course of IV Zosyn Advanced to regular diet, well-tolerating without N/V/D/worsened abdominal pain. Bowel movement 07/23 and continues to pass gas PRATEEK drain to remain in place at dispo. Follow-up with Dr. Russell in 1 week for follow-up and possible drain removal Pain control with Tylenol first line, oxycodone 5-10 mg q4h PRN moderate-severe pain. IV morphine now discontinued #Recurrent UTIs - History of multiple pansensitive pseudomonas UTIs Urine culture grew 2 types of pseudomonas, both sensitive to Zosyn Extend IV Zosyn x 48 more hours to complete treatment course for UTI #Chronic venous stasis - Baseline level of LE edema per patient Continue to hold Bumex in perioperative period given increased Cr; clinically appears euvolemic #BRETT on CKD stage 4 Baseline Cr 2.2-2.4. Cr currently 2.84 Lisinopril 20 mg daily now on HOLD due to increased Cr Cleared to resume Eliquis 07/25 per surgery. Monitor renal function in morning to determine resumption of Eliquis vs starting Lovenox #DMT2 on insulin Home regimen of Glargine 18 units HS Reduced to Glargine 5 units BID given limited diet - though diet is now advanced to regular, BSG have been well-controlled A1c 6.1% #A fib Continue metoprolol 25 mg daily Holding Eliquis #Hypothyroidism - TSH 0.9 - continue levothyroxine #BPH - Continue home tamsulosin #HFpEF - Echocardiogram with similar findings compared to study in February 2022. EF 60-65%, no regional wall motion abnormalities, no significant valvular abnormalities VTE ppx: holding home Eliquis in perioperative period - can resume Eliquis or start Lovenox 07/25 Dispo: PT/OT recommending rehab, no referrals yet made Extended IV antibiotic for UTI Discontinued IV morphine Held Lisinopril Admission and Anticipated Discharge Date Admission Date: July 19, 2024 Subjective Patient seen and evaluated at bedside. He reports feeling slightly better today, noting that his postoperative abdominal pain is nearly resolved at rest but is present with activity. He has not been evaluated by PT/OT yet, but he reports he feels weaker than his baseline. He has concern about returning home alone at this time, as he has required 2 person assistance to get OOB or up from chair. He had a bowel movement yesterday and continues to pass gas. We discussed his morning labs and medication plan. We discussed extending his antibiotics for another 48 hours to complete treatment for his UTI. No additional complaints or concerns at this time. Physical Exam Physical Exam: General: No acute distress, nondiaphoretic. Class III obesity. Skin: Bilateral lower extremities with stasis dermatitis and trace pitting edema. Cardiac: Regular rate and rhythm without murmurs gallops or rubs. Pulm: Diminished at bases bilaterally but otherwise clear to auscultation. Normal respiratory effort. 97% on room air. Abdominal: Soft, distended secondary to body habitus. Expected postoperative tenderness. Bowel sounds present. Surgical sites covered with Dermabond. Surgical drain in place draining serosanguineous fluid. Neuro: A&O x3. No focal neurological deficits. Results & Data Results & Data Vital Signs (Past 12 Hours) Vital Signs Temp Pulse Pulse Resp BP BP Pulse Ox 07/24/24 07:40 97.7 F 62 12 108/67 97 07/24/24 07:22 68 07/24/24 04:59 98.1 F 69 18 138/71 98 07/24/24 02:32 74 21 95 07/24/24 00:18 97.7 F 81 18 162/76 H 96 07/23/24 23:29 80 20 91 07/23/24 21:41 83 07/23/24 20:36 98.1 F 84 18 148/78 H 94 O2 Del Method O2 Flow Rate 07/24/24 07:40 Room Air 07/24/24 07:22 07/24/24 04:59 CPAP 07/24/24 02:32 3 07/24/24 00:18 CPAP 07/23/24 23:29 3 07/23/24 21:41 07/23/24 20:36 Room Air Laboratory Results Reviewed CBC Reviewed BMP PG Care Time/CCT Total # of Minutes Spent Total Time Spent with Patient: Total time spent is greater than 50% in coordination of care (as documented) at patient's floor/unit and/or counseling patient: Coding Level of Care Code 34818 SUB INP/OBS CARE 3/50MIN Diagnoses Acute cholecystitis K81.0 UTI (urinary tract infection) N30.00 Hematuria presence: without hematuria Urinary tract infection type: acute cystitis Chronic kidney disease, stage 4 (severe) N18.4 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
[2024-07-24] MEDS: PIPERACILLIN/TAZOBACTAM 4.5 GM/100 ML BAG IV SCH ×2 (11:48→23:49)
--- NOTE | 2024-07-25 08:06 | Surgery Progress Note ---
Date of Service July 25, 2024 Assessment & Plan (1) Acute cholecystitis: Plan: POD 4 lap miguel Labs this AM are pending. Vitals are stable Patient reports some pain at PRATEEK site. drain itself remains serosang, 60cc noted (plan to leave in place at dispo) He is on a regular diet without n/v. he is having + bowel function Eliquis okay to be resumed today pending stability in hbg PT on board for d/c planning, may need placement Please call with any questions/concerns. f/u with dr. jenkins in ~1 wk for check up and possible drain removal as above. doing well from our standpoint. rehab application in progress. d/c drain prior to d/c. no acute post op issues. can be d/c'd whenever primary service ready Admission and Anticipated Discharge Date Admission Date: July 19, 2024 Subjective Patient resting. States he has some pain around drain site insertion. Otherwise no nausea/vomiting. Tolerating diet. Having + bowel function. Has worked with PT/OT. Physical Exam Physical Exam: sleeping, but was easily arousable and communicative Gastrointestinal (Abdomen): Inspection/Auscultation: + abdomen distended, + abdominal surgical incision (incisions c/d/i with dermabond ) and + abdominal surgical drain present (60cc serosang) Percussion/Palpation: + abdomen tender (ttp around PRATEEK drain site) and abdomen soft Results & Data Vital Signs (Past 12 Hours) Vital Signs Temp Pulse Pulse Resp BP BP Pulse Ox 07/25/24 07:37 97.7 F 64 18 134/68 93 07/25/24 07:34 53 L 07/25/24 03:38 98.2 F 61 18 166/90 H 93 07/25/24 03:05 76 19 94 07/24/24 23:59 97.9 F 66 18 193/75 H 95 07/24/24 23:14 70 17 95 07/24/24 22:10 67 07/24/24 22:01 97.3 F L 68 18 146/74 H 92 O2 Del Method O2 Flow Rate 07/25/24 07:37 Room Air 07/25/24 07:34 07/25/24 03:38 CPAP 07/25/24 03:05 3 07/24/24 23:59 Room Air 07/24/24 23:14 3 04/14/25 22:10 07/24/24 22:01 Room Air PG Care Time/CCT Total # of Minutes Spent Total Time Spent with Patient: Total time spent is greater than 50% in coordination of care (as documented) at patient's floor/unit and/or counseling patient: Coding Level of Care Code 22008 Post Operative Follow-Up Diagnoses Acute cholecystitis K81.0
--- NOTE | 2024-07-25 08:12 | Hospitalist Progress Note ---
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 US GB noting acute miguel, surgery consulted s/p lap miguel with Dr Russell on 07/21. Acute blood loss anemia secondary to surgery - hgb stabilized and now improved to 10.5- Eliquis resumed 5mg BID for DVT proph Zosyn IV continued (extended x 2 days for UTI below, EOT 07/26) Tolerating advancement of diet. Pain control, antiemetic available. Morphine now discontinued and hasn't even used the oxycodone in past 24hrs and will monitor.+BM 07/23, 07/[address] and initial plans for 1 wk/removal outpatient with Dr Russell but has been in place since since 07/21 and message sent to surgery JACQUELIN to consider removal in next 24hrs if continued decreased output from drain PT/OT consulted and recs rehab, CM notified to work on referrals. Disposition pending placement for acute rehab, hopefully in next 24-48hrs Outpt f/u surgery [place] planned #Recurrent UTIs Hx multiple pansensitive pseudomonas UTIs however urine cx grew pseudomonas x 2 w/ some resistance to FLQ and remains on Zosyn and EOT 07/26 as above #BRETT on CKD stage 4 - baseline Cr 2.2-2.4. Was continued on lisinopril 20mg daily, now on hold given Cr bump to 2.84 on 07/24 Lisinopril/lasix remains on hold. BUN slightly increased but reports making adequate urine and not volume overloaded (weight down) and will continue tx for UTI and hold diuretic/HEIDY Renal dose meds/avoid toxins as able BMP in AM #Chronic venous stasis Baseline level of LE edema per patient however lasix on HOLD (20mg daily) and will continue w/ lisinopril on HOLD given bump in Cr but improving and suspect able to resume in AM. Does not appear volume overloaded and reports weight down ~4lb since admission reported by patient 07/25 Monitor to resume diuretics as needed #DMT2 on insulin - A1c 6.1, well controlled Home regimen of Glargine 18 units HS reduced to 5 units BID given limited diet and have been stable/monitor #A fib- NSR on exam, remains on metoprolol 25mg daily, Eliquis resumed TODAY. Keep mag/k stable. #Hypothyroidism - TSH 0.9 and continues on levothyroxine #BPH - Continue home tamsulosin daily #HFpEF - Echocardiogram with similar findings compared to study in February 2022. EF 60-65%, no regional wall motion abnormalities, no significant valvular abnormalities Weight checked and DOWN, diuretics on hold as above and will continue to monitor volume status/resume as needed., BNP w/ AM labs VTE Ppx: Eliquis resumed BID 07/25 Dispo: PT/OT recommending rehab, no referrals yet made but CM notified and referrals to be sent. Remains inpatient at this time. Zosyn to complete after dosing 07/26 and rehab planned. Monitor to resume home lisinopril/lasix Admission and Anticipated Discharge Date Admission Date: July 19, 2024 Supervising Physician Co-Signing Physician Notes The patient was not seen by me. The chart was reviewed. Case discussed with JOVI Penaloza. Agree with assessment and plan Subjective Eval this morning, sitting up in the chair. Pain 2/10 at rest, about ~5/10 with activity but reports improving. Moving his bowels this morning, tolerating diet. Eliquis has been resumed, hgb stable. PRATEEK decreased output, reports not emptied this morning and inquiring about timing to remove and will send surgery message as prior rec x 1 wk. Lasix on hold, reports weight down ~4lb during inpatient and will remain on hold. Lisinopril to resume for BP if renal function improved vs holding off another day. No fever/chills, remains on abx for urinary coverage for another 2 days. Plan for rehab, CM to follow. Questions/concerns addressed at this time. 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, normocephalic, thick neck, trachea midline, mm stable Resp: even/unlabored, no wheezing/rales, on room air CV: NSR, no significant m/r/g, no pitting edema, chronic venous stasis changes noted/thickened skin GI: +BS, slight distension with incisions looking good, PRATEEK w/ 20-30cc serosanguineous drainage, appropriately tender but no guarding/rebound no tyler MSK/Neuro: nonfocal, answering questions appropriately, not confused Psych: AOx3, cooperative with exam \ Results & Data Results & Data Vital Signs (Past 12 Hours) Vital Signs Temp Pulse Pulse Resp BP BP Pulse Ox 07/25/24 07:37 36.5 C 64 18 134/68 93 07/25/24 07:34 53 L 07/25/24 03:38 36.8 C 61 18 166/90 H 93 07/25/24 03:05 76 19 94 07/24/24 23:59 36.6 C 66 18 193/75 H 95 07/24/24 23:14 70 17 95 07/24/24 22:10 67 07/24/24 22:01 36.3 C L 68 18 146/74 H 92 O2 Del Method O2 Flow Rate 07/25/24 07:37 Room Air 07/25/24 07:34 07/25/24 03:38 CPAP 07/25/24 03:05 3 07/24/24 23:59 Room Air 07/24/24 23:14 3 07/24/24 22:10 07/24/24 22:01 Room Air Laboratory Results 07/25/24 09:27 07/25/24 09:27 Mag 2.3 PG Care Time/CCT Total # of Minutes Spent Total Time Spent with Patient: Total time spent is greater than 50% in coordination of care (as documented) at patient's floor/unit and/or counseling patient: Coding Level of Care Code 89322 SUB INP/OBS CARE 3/50MIN Diagnoses Acute cholecystitis K81.0 UTI (urinary tract infection) N30.00 Hematuria presence: without hematuria Urinary tract infection type: acute cystitis Chronic kidney disease, stage 4 (severe) N18.4 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
[2024-07-25 10:06] LABS: Hematocrit (blood only) 33.5 % (42.0-52.0); Hemoglobin 10.5 g/dl (14.0-18.0); Mean Corpuscular Hemoglobin 30.1 pg (25.0-34.0); Mean Corpuscular Hgb Conc 31.3 g/dL (32.0-36.0); Platelet Count 295 K/uL (130-400); RDW Coefficient of Variation 15.8 % (11.5-14.5); RDW Standard Deviation 55.8 fL (36.4-46.3); Red Blood Count 3.49 M/uL (4.70-6.10); White Blood Count 8.31 K/ul (4.8-10.8)
[2024-07-25 10:25] LABS: Calcium 9.5 mg/dl (8.6-10.3); Magnesium 2.3 mg/dl (1.7-2.4); Potassium 4.3 mmol/L (3.5-5.1)
[2024-07-25 10:30] LABS: BUN Creatinine Ratio 13.2 (10-20); Creatinine Clr Calc Pharmacy 19.9 ml/min
[2024-07-25] MEDS: APIXABAN 5 MG TABLET PO SCH (10:45)
--- NOTE | 2024-07-26 07:43 | Hospitalist Progress Note ---
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 US GB noting acute miguel, surgery consulted s/p lap miguel with Dr Russell on 07/21. Acute blood loss anemia secondary to surgery - hgb stabilized and now improved to 10.5 and Eliquis resumed 5mg BID 07/25 Zosyn IV continued (EOT 07/26) Tolerating diet Pain control, antiemetics as needed Moving bowels, soft. Monitor for diarrhea on abx/cdiff if needed (reporting soft/formed) No concerns by nursing for cdiff but will monitor PRATEEK remains in place but plans to remove prior to discharge PT/OT rec rehab, CM notified and ref to [facility] in place. Dispo pending bed availability but will complete abx this evening and stable for [place] when able. Outpt f/u surgery [place] #Recurrent UTIs Hx multiple pansensitive pseudomonas UTIs however urine cx grew pseudomonas x 2 w/ some resistance to FLQ and remains on Zosyn and EOT 07/26 today #BRETT on CKD stage 4 - baseline Cr 2.2-2.4. On lisinopril 20mg daily, lasix 20mg at baseline Cr bumped to 2.84 on 07/24 Lisinopril/lasix on HOLD Renal function improved off these medications -- BUN/Cr 35/2.70 Lasix to remain on hold and does not appear overloaded (BNP not elevated either, wt down) and will continue to hold lisinopril given still above baseline and BP stable 162/58 but likely able to resume lisinopril AM 07/27 pending renal function but would hold off lasix unless weight gain/edema or breathing difficulty Renal dose meds/avoid nephrotoxins BMP in AM #Chronic venous stasis Baseline level of LE edema per patient however lasix on HOLD as above and weights down. suspect some element of edema from dependent position, BNP not elevated and weight down. Elevation encouraged as able, monitor for resumption of diuretics #DMT2 on insulin A1c 6.1, well controlled Home regimen of Glargine 18 units HS reduced to 5 units BID given limited diet and have been stable/monitor. Stable w/ reduction and continues w/ SSI/adjustment as needed #A fib NSR on exam, SR w/ 1st degree on monitor (no pauses, does get to 50s at times) Remains on metoprolol 25mg daily, eliquis resumed 07/25 and continued #Hypothyroidism - TSH 0.9 wnl, continues on levothyroxine #BPH - Continue home tamsulosin daily #HFpEF Echocardiogram with similar findings compared to study in February 2022. EF 60-65%, no regional wall motion abnormalities, no significant valvular abnormalities Weight checked and DOWN, diuretics on hold as above and will continue to monitor volume status/resume as needed but hold off resuming given weight/BNP Monitor to resume lisinopril in AM pending renal function/BP VTE Ppx: Eliquis resumed 07/25 and continued Dispo: continued inpatient stay. PT/OT rec rehab - referrals pending/CM to follow Completing course abx today and monitor for any diarrhea/issues. Lisinopril/lasix remain on hold for elevated renal function but improving and likely able to resume HEIDY in AM but defer diuretic unless weight gain/edema or issues. Admission and Anticipated Discharge Date Admission Date: July 19, 2024 Supervising Physician Co-Signing Physician Notes The patient was not seen by me. The chart was reviewed. Case discussed with JOVI Penaloza. Agree with assessment and plan Subjective EVal this morning, sitting up in recliner. Tolerating diet, moving bowels. Soft,no significant diarrhea. Abx to complete today. Hopeful drain removal tomorrow (was emptied this morning). Weights stable and renal function improving. Lisinopril on hold unless needing for BP as well as lasix unless weight gain but no significant overload. Planning for rehab, hopefully next 24-48hours pending bed availability. No CP/SOB. Questions/concerns addressed at this time. Physical Exam 2 Physical Exam: General: 78yo male sitting up in recliner chair, NAD, mild discomfort from PRATEEK site but otherwise pain well controlled Head atraumatic, normocephalic, thick neck, trachea midline, mm stable Resp: even/unlabored, no wheezing/rales, on room air CV: NSR, no significant m/r/g, no pitting edema, chronic venous stasis changes noted/thickened dry skin noted, trace pitting edema GI: +BS, soft/slight distension, appropriately tender to palpation at incisions (more to LLQ site where PRATEEK drain is), scant serosanguineous drainage noted, no guarding/rigidity or peritoneal signs no tyler MSK/Neuro: nonfocal, answering questions appropriately, not confused Psych: AOx3, cooperative with exam \ Results & Data Results & Data Vital Signs (Past 12 Hours) Vital Signs Temp Pulse Pulse Resp BP Pulse Ox O2 Del Method 07/26/24 07:00 63 07/26/24 03:49 64 14 95 07/26/24 02:07 36.9 C 59 L 16 149/70 H 100 CPAP 07/25/24 23:04 69 18 95 07/25/24 22:20 36.6 C 61 16 158/73 H 95 Room Air 07/25/24 22:13 62 07/25/24 21:00 Room Air O2 Flow Rate 07/26/24 07:00 07/26/24 03:49 3 07/26/24 02:07 07/25/24 23:04 3 07/25/24 22:20 07/25/24 22:13 07/25/24 21:00 Laboratory Results 07/26/24 09:32 07/26/24 09:32 Mag 2.0 BNP 71 PG Care Time/CCT Total # of Minutes Spent Total Time Spent with Patient: Total time spent is greater than 50% in coordination of care (as documented) at patient's floor/unit and/or counseling patient: Coding Level of Care Code 19642 SUB INP/OBS CARE 3/50MIN Diagnoses Acute cholecystitis K81.0 UTI (urinary tract infection) N30.00 Hematuria presence: without hematuria Urinary tract infection type: acute cystitis Chronic kidney disease, stage 4 (severe) N18.4 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
--- NOTE | 2024-07-26 08:12 | Surgery Progress Note ---
Date of Service July 26, 2024 Assessment & Plan (1) Acute cholecystitis: Plan: POD 5 lap miguel Vitals are stable Pt reports feeling well. pain controlled, tolerating a diet, having + bowel function PRATEEK drain with 70cc documented yesterday, remains serosang. Okay for RN to remove on the day of patient's discharge Wilmer has been resumed Social work on board for d/c planning to facility Please call with any questions/concerns. f/u with dr. jenkins in 2 weeks Stable for discharge from our standpoint Admission and Anticipated Discharge Date Admission Date: July 19, 2024 Subjective Patient feeling well. No major complaints. Tolerating a diet, no nausea/vomiting. + bowel function. Expected post op pain which is tolerable. Physical Exam Physical Exam: awake/alert, no distress Gastrointestinal (Abdomen): Inspection/Auscultation: + abdomen distended (mild), + abdominal surgical incision (incisions c/d/i with dermabond , some ecchymosis of epigastric incision) and + abdominal surgical drain present (70cc serosang) Percussion/Palpation: + abdomen tender (ttp around PRATEEK drain site) and abdomen soft Results & Data Vital Signs (Past 12 Hours) Vital Signs Temp Pulse Pulse Pulse Resp BP Pulse Ox 07/26/24 07:49 07/26/24 07:48 97.7 F 64 14 162/58 H 100 07/26/24 07:00 63 07/26/24 03:49 64 14 95 07/26/24 02:07 98.4 F 59 L 16 149/70 H 100 07/25/24 23:04 69 18 95 07/25/24 22:20 97.9 F 61 16 158/73 H 95 07/25/24 22:13 62 07/25/24 21:00 O2 Del Method O2 Flow Rate 07/26/24 07:49 CPAP 07/26/24 07:48 CPAP 2 07/26/24 07:00 07/26/24 03:49 3 07/26/24 02:07 CPAP 07/25/24 23:04 3 07/25/24 22:20 Room Air 07/25/24 22:13 07/25/24 21:00 Room Air PG Care Time/CCT Total # of Minutes Spent Total Time Spent with Patient: Total time spent is greater than 50% in coordination of care (as documented) at patient's floor/unit and/or counseling patient: Coding Level of Care Code 23516 Post Operative Follow-Up Diagnoses Acute cholecystitis K81.0
[2024-07-26 10:18] LABS: Basophils # (auto) 0.05 K/uL (0.00-0.20); Basophils % (auto) 0.5 %; Eosinophils # (auto) 0.36 K/uL (0.00-0.50); Eosinophils % (auto) 3.8 %; Hematocrit (blood only) 32.7 % (42.0-52.0); Hemoglobin 10.1 g/dl (14.0-18.0); Immature Granulocytes # (auto) 0.07 K/uL (0.01-0.20); Immature Granulocytes % (auto) 0.7 %; Lymphocytes # (auto) 1.17 K/uL (1.20-3.40); Lymphocytes % (auto) 12.4 %; Mean Corpuscular Hemoglobin 29.8 pg (25.0-34.0); Mean Corpuscular Hgb Conc 30.9 g/dL (32.0-36.0); Mean Corpuscular Volume 96.5 fL (80.0-100.0); Mean Platelet Volume 10.1 fL (9.4-12.4); Monocytes # (auto) 0.55 K/uL (0.11-0.59); Monocytes % (auto) 5.9 %; Neutrophils % (auto) 76.7 %; Platelet Count 314 K/uL (130-400); RDW Coefficient of Variation 15.7 % (11.5-14.5); RDW Standard Deviation 55.9 fL (36.4-46.3); Red Blood Count 3.39 M/uL (4.70-6.10)
[2024-07-26 10:38] LABS: Albumin Level 3.4 gm/dl (3.4-5.0); Bilirubin,Total 0.5 mg/dl (0.2-1.0); Calcium 9.4 mg/dl (8.6-10.3); Magnesium 2.2 mg/dl (1.7-2.4); Potassium 4.1 mmol/L (3.5-5.1)
[2024-07-26 10:44] LABS: Albumin Globulin Ratio 0.9 (0.9-2); Globulin 3.9 gm/dl (2.5-4.0); Total Protein 7.3 gm/dl (6.0-8.3)
[2024-07-26] MEDS: lisinopril 10 MG TAB PO STA (17:47)
[2024-07-27 07:42] LABS: Basophils # (auto) 0.04 K/uL (0.00-0.20); Basophils % (auto) 0.5 %; Eosinophils # (auto) 0.32 K/uL (0.00-0.50); Eosinophils % (auto) 3.9 %; Hematocrit (blood only) 31.3 % (42.0-52.0); Hemoglobin 9.6 g/dl (14.0-18.0); Immature Granulocytes # (auto) 0.05 K/uL (0.01-0.20); Immature Granulocytes % (auto) 0.6 %; Lymphocytes # (auto) 1.14 K/uL (1.20-3.40); Lymphocytes % (auto) 13.9 %; Mean Corpuscular Hemoglobin 29.3 pg (25.0-34.0); Mean Corpuscular Hgb Conc 30.7 g/dL (32.0-36.0); Mean Corpuscular Volume 95.4 fL (80.0-100.0); Mean Platelet Volume 10.1 fL (9.4-12.4); Monocytes # (auto) 0.64 K/uL (0.11-0.59); Monocytes % (auto) 7.8 %; Neutrophils # (auto) 6.01 K/uL (1.40-6.50); Neutrophils % (auto) 73.3 %; Platelet Count 282 K/uL (130-400); RDW Coefficient of Variation 15.7 % (11.5-14.5); RDW Standard Deviation 54.9 fL (36.4-46.3); Red Blood Count 3.28 M/uL (4.70-6.10)
--- NOTE | 2024-07-27 07:53 | Hospitalist Progress Note ---
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 US GB noting acute miguel, surgery consulted s/p lap miguel with Dr Russell on 07/21. Acute blood loss anemia secondary to surgery- hgb stabilized and now improved to 10.5 and eliquis resumed. Hgb repeat stable, but decreased to 9.6/PRATEEK increased once resumed. --Removal per surgery when appropriate prior to dc Zosyn IV completed 07/26 WBC wnl, remains afebrile Pain control, antiemetics available Tolerating diet, moving hiw bowels PT/OT rec rehab -- ref to [facility] pending and can dc when bed available Outpt f/u surgery at dc #Recurrent UTIs Hx multiple pansensitive pseudomonas UTIs Urine cx grew pseudomonas x 2 w/ some resistance to FLQ and completed course w/ Zosyn IV #BRETT on CKD stage 4 - baseline Cr 2.2-2.4. Baseline on lisinopril 20mg, lasix 20mg. Cr bumped to 2.84 on 07/24 and have been on hold Improved to 2.7 but did get dose lisinopril 10mg last evening for elevated BP but can add hydralazine IV if needed but will remain off both for now Renal dose meds/avoid toxins as able BMP in AM #Chronic venous stasis Baseline level of LE edema per patient however lasix on HOLD as above and weights down. suspect some element of edema from dependent position, BNP not elevated Elevation encouraged as able, monitor for resumption of diuretics as when appropriate/if need #DMT2 on insulin - A1c 6.1, well controlled at baseline on glargine 18u HS Glargine reduced to 5 units BID given limited diet and have been stable #A fib NSR on exam, SR w/ 1st degree on monitor (no pauses, does get to 50s at times) Remains on metoprolol 25mg daily, eliquis resumed 07/25 #Hypothyroidism - TSH 0.9 wnl, continues on levothyroxine #BPH - Continue home tamsulosin daily #HFpEF Echocardiogram with similar findings compared to study in February 2022. EF 60-65%, no regional wall motion abnormalities, no significant valvular abnormalities Weight checked and DOWN, diuretics on hold as above and will continue to monitor volume status/resume as needed but hold off resuming given weight/BNP VTE Ppx: Eliquis Dispo: continued inpatient stay and plan for [facility] when bed available/auth received. Patient reports daughter can transport when bed available. Admission and Anticipated Discharge Date Admission Date: July 19, 2024 Supervising Physician Co-Signing Physician Notes The patient was not seen by me. The chart was reviewed. Case discussed with JOVI Penaloza. Agree with assessment and plan Subjective Eval this morning, sitting up in bed. Pain controlled, PRATEEK emptied (20-30cc per nursing) Completed abx. Moving bowels, no significant diarrhea. Waiting to hear back about rehab/bed, reports daughter able to transport when occurs. Reports he did walk the halls w/ therapy yesterday [place] the [place] but was worried about making it back and was very tired following. Questions/concerns addressed at this time. Physical Exam 2 Physical Exam: General: 78yo male sitting up in recliner chair, NAD Head atraumatic, normocephalic, thick neck, trachea midline, mm stable Resp: even/unlabored, no wheezing/rales, on room air CV: NSR, no significant m/r/g, no pitting edema, chronic venous stasis changes noted/thickened dry skin noted, trace pitting edema GI: +BS, soft/slight distension, appropriately tender to palpation at incisions (more to LLQ site where PRATEEK drain is), scant serosanguineous drainage noted, no guarding/rigidity or peritoneal signs no tyler MSK/Neuro: nonfocal, answering questions appropriately, not confused Psych: AOx3, cooperative with exam Results & Data Results & Data Vital Signs (Past 12 Hours) Vital Signs Temp Pulse Pulse Resp BP Pulse Ox O2 Del Method 07/27/24 07:35 36.5 C 71 20 149/69 H 96 Room Air 07/27/24 02:51 36.7 C 57 L 16 138/71 99 Room Air 07/27/24 02:40 57 L 19 99 07/26/24 23:21 36.5 C 59 L 16 176/75 H 100 CPAP 07/26/24 22:52 60 22 99 07/26/24 22:26 62 07/26/24 21:00 Room Air 07/26/24 19:57 36.3 C L 58 L 16 169/67 H 95 Room Air O2 Flow Rate 07/27/24 07:35 07/27/24 02:51 07/27/24 02:40 3 07/26/24 23:21 07/26/24 22:52 3 07/26/24 22:26 07/26/24 21:00 07/26/24 19:57 Laboratory Results 07/27/24 07:01 07/27/24 07:01 Mag 2.2 PG Care Time/CCT Total # of Minutes Spent Total Time Spent with Patient: Total time spent is greater than 50% in coordination of care (as documented) at patient's floor/unit and/or counseling patient: Coding Level of Care Code 33668 SUB INP/OBS CARE 3/50MIN Diagnoses Acute cholecystitis K81.0 UTI (urinary tract infection) N30.00 Hematuria presence: without hematuria Urinary tract infection type: acute cystitis Chronic kidney disease, stage 4 (severe) N18.4 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
[2024-07-27 08:05] LABS: Calcium 9.1 mg/dl (8.6-10.3); Magnesium 2.2 mg/dl (1.7-2.4); Potassium 4.1 mmol/L (3.5-5.1)
[2024-07-27 08:11] LABS: BUN Creatinine Ratio 13.5 (10-20); Creatinine Clr Calc Pharmacy 31.3 ml/min
[2024-07-28 02:51] VITALS: RESP 16
[2024-07-28 09:46] LABS: Hematocrit (blood only) 34.3 % (42.0-52.0); Hemoglobin 10.8 g/dl (14.0-18.0); Mean Corpuscular Hemoglobin 30.6 pg (25.0-34.0); Mean Corpuscular Hgb Conc 31.5 g/dL (32.0-36.0); Mean Corpuscular Volume 97.2 fL (80.0-100.0); Mean Platelet Volume 10.2 fL (9.4-12.4); Platelet Count 311 K/uL (130-400); RDW Coefficient of Variation 15.7 % (11.5-14.5); RDW Standard Deviation 56.2 fL (36.4-46.3); Red Blood Count 3.53 M/uL (4.70-6.10); White Blood Count 9.02 K/ul (4.8-10.8)
[2024-07-28 10:02] LABS: BUN Creatinine Ratio 14.7 (10-20); Calcium 9.6 mg/dl (8.6-10.3); Creatinine Clr Calc Pharmacy 33.2 ml/min; Potassium 4.6 mmol/L (3.5-5.1)
--- NOTE | 2024-07-28 10:25 | Discharge Summary ---
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 US GB noting acute miguel, surgery consulted, s/p lap miguel with Dr Russell on 07/21. Acute blood loss anemia secondary to surgery- hgb stabilized and Eliquis resumed. PRATEEK drain removed 07/28 Zosyn IV completed 07/26 PT/OT rec home w/ home health. Outpt f/u surgery at [facility] #Recurrent UTIs Hx multiple pansensitive pseudomonas UTIs Urine cx grew pseudomonas x 2 w/ some resistance to FLQ and completed course w/ Zosyn IV #BRETT on CKD stage 4 - baseline Cr 2.2-2.4. Baseline on lisinopril 20mg, Lasix 20mg. Cr bumped to 2.84 on 07/24 and have been on hold Resume Lisinopril 20mg on discharge. Hold Lasix until evaluated by PCP --> consider dose adjustment vs discontinuation if only using for LE edema. Patient did not appear volume overloaded during hospital stay. #Chronic venous stasis Baseline level of LE edema per patient however lasix on HOLD as above and weights down. suspect some element of edema from dependent position, BNP not elevated Elevation encouraged as able, consider compression stockings on discharge. #DMT2 on insulin - A1c 6.1, well controlled at baseline on glargine 18u HS Glargine reduced to 10 units once daily on discharge. Encouraged to check BG at home & notify PCP if readings are consistently high vs low. #A fib NSR on exam, SR w/ 1st degree on monitor (no pauses, does get to 50s at times) Remains on metoprolol 25mg daily, Eliquis resumed 07/25 #Hypothyroidism TSH 0.9 wnl, continues on levothyroxine #BPH Continue home tamsulosin daily #HFpEF Echocardiogram with similar findings compared to study in February 2022. EF 60-65%, no regional wall motion abnormalities, no significant valvular abnormalities Patient discharged home w/ home health 07/28. Admission HPI Per Admitting Provider Pt is a 78 yo male with a past med hx of DMT2 on insulin, afib on eliquis at home, CKD stage 4, HTN, hypothyroidism, BPH and recurrent UTIs who presents to the hospital on 07/19 for RUQ pain found to have acute cholecystitis. Pt states he felt generally well until about 1 week ago when he started to have sporadic episodes of RUQ abdominal pain. He states he would have maybe 1-2 episodes a day and then may not have any issues for a day or so. He states the episodes seemed random, no identifiable remitting or relieving factors. He states he does have a hx of recurrent UTIs for which he sees a doctor for and states that he felt like with his sporadic pain and chills and decreased appetite may have been from a UTI, but states that he has not had any dysuria. He states he did have an US recently in April but states it was to assess his kidneys given recurrent UTIs, but that he does know they saw gallstones on that US. He states he saw a surgeon for the gallstone findings but ultimately decided since he was asymptomatic and had not had any GB episodes to not proceed with surgical intervention at that time. He states last night around 1 am he woke up with the RUQ pain which seemed worse than prior episodes and did not go away in 5-10 minutes which concerned him and prompted him to come into the hospital earlier today. He states he also felt very gassy and a bit nauseated. No pain at the present but states he had pain earlier which was relieved with IV tylenol. No fevers at home. No chest pain or SOB today. He notes decreased appetite but no vomiting. Last BM was this morning and was nonbloody. No blood in urine noted by pt. Discharge Exam Constitutional WD/WN, vitals as above Respiratory normal respiratory effort Cardiovascular well perfused Neurologic PERRL, EOMI, accommodation nl, no face palsy, no dysarthria Psychiatric A+Ox3, euthymic affect Discharge Plan Discharge Items Patient Disposition: Home - Home Health Services Reason For Visit: ACUTE CHOLECYSTITIS Discharge Diagnosis: cholecystectomy Condition on Discharge: Good Goals: You have been hospitalized for an urgent problem which required surgery. During your stay at [facility], we have made an effort to correct the problem that brought you to the hospital while keeping you as comfortable as possible. Surgery and medications were used to bring your condition under control and your discharge instructions will include directions for any medications you should take after leaving the hospital. Please make sure to follow the advice of your surgeon regarding follow up with the surgeon and with your primary care provider. Activity: As commented below Lifting: No more than 10 pounds Bathing Comment: you can shower. No soaking in pools/baths for 2 weeks Exercise/Sports: Wait until after follow-up appointment Driving/Machine Use: no driving if taking narcotic pain medication Non-emergency contact: Surgeon Call non-emergency contact if: you have any medication questions, your symptoms worsen, your temperature is above 101.5, your wound has increased redness, your wound has increased drainage and your wound pain has increased Follow-up/Referrals: Cortez-Kiran De La Rosa DO [Physician] - (call office for follow up in 1 week) Elizabeth Chilel MD [Primary Care Provider] - 07/31/24 11:00 am Diet: Heart Healthy Addtl Attending Provider Instructions: You have been hospitalized for abdominal pain and found to have acute infection in your gallbladder. Surgery was consulted and you were given IV antibiotics for coverage and had removal of this and drain to be removed prior to discharge (see instructions from surgery below). You should continue pain control with Tylenol/oxycodone as needed. Your renal function was elevated slightly but improved with holding your lisinopril/Lasix and at discharge you are to resume your lisinopril but monitor your weights to see about resuming your Lasix for any increased weight gain or edema and can discuss with primary care in follow up. You should have follow up with surgery as arranged to monitor your status outpatient. Please follow up with primary care in the next 7-10 days after discharge. Please alert of any increased diarrhea/pain/fever given extended course antibiotics as discussed but you do not have any further antibiotics to take at discharge! Some people have chronic loose stools after removal of gallbladder and there are medications to use if this occurs and can be discussed in follow up (ie lindsey reynolds). Your insulin needs have been LESS while in the hospital At discharge, your insulin will be changed to 10 units Lantus once daily. Please continue to monitor your blood sugars and alert primary care if any persistent low <80 or >250 or symptoms for further instruction. Please return to the ER with any fever/chills, worsening pain, increased redness/drainage from incisions or for any other symptoms concerning for you. Home health services has been arranged at discharge and recommend continued use of walker until return to your baseline. It has been a pleasure being a part of the medical team providing for you while you have been in the hospital. Take care! Addtl Solar Panel Technician Provider Instructions: You have surgical glue called dermabond on your surgical site incisions. You may shower with this on. This will tend to come off within a couple of weeks. Do not pick at it. Cover the site where your surgical drain was removed with dry gauze/tape. Change this daily and as needed until site has healed and no longer draining fluid. Pending Studies at Discharge: Yes Studies:: surgical pathology Stand-Alone Forms: My [facility] [place] [employer], Smoking Cessation Medications and DC Order Prescriptions: New acetaminophen [Tylenol Extra Strength] 500 mg Tablet 1,000 mg PO Q8H PRNQty: 0 0RF oxycodone 5 mg Tablet 5 mg PO Q4H PRN (Reason: pain) Qty: 14 0RF insulin glargine [Lantus Solostar U-100 Insulin] 100 unit/mL (3 mL) insulin pen 10 unit subcut DAILY Qty: 15 0RF Continued apixaban 5 mg tablet 5 mg PO BID cholecalciferol (vitamin D3) 25 mcg (1,000 unit) capsule 25 mcg PO QAM folic acid 1 mg tablet 1 mg PO QAM levothyroxine 88 mcg capsule 88 mcg PO DAILYBB metoprolol succinate 25 mg tablet extended release 24 hr 25 mg PO DAILY fluticasone propionate 50 mcg/actuation spray,suspension 1 spray intranasal BID PRN (Reason: Congestion) tamsulosin 0.4 mg Capsule 0.4 mg PO HS Qty: 30 0RF ferrous sulfate [FeroSul] 325 mg (65 mg iron) tablet 325 mg PO QAM ascorbic acid (vitamin C) [Vitamin C] 500 mg tablet 500 mg PO DAILY atorvastatin 20 mg tablet 0 mg PO HS lisinopril 20 mg tablet 20 mg PO DAILY Held furosemide 20 mg tablet 20 mg PO QAM Hold Instructions: unless having weight gain/increased edema Discontinued insulin glargine [Lantus Solostar U-100 Insulin] 100 unit/mL (3 mL) insulin pen 18 unit subcut HS Discharge Orders: Discharge Order (Routine); Ordered 07/28/24 Ordered By: Genny Ramirez/Other Patient Handouts: Managing Type 2 Diabetes, Special Foot Care for Diabetes Admission Data Admit Date/Time: 07/19/24 18:04 Attending Provider: Jaime Nguyễn Admit Provider: Yvette Albarran Primary Care Provider: Elizabeth Chilel Other Providers: [facility] IRB Approved Study,Annie; Morales Mendoza; [place],[facility]; [facility]; [facility] Fax Other Interventions: Discharge Summary Assessment (RN) Last Done: 07/28/24 10:53 Hospital Stay Data Consultations 07/19/24 20:57 Consult General Surgery Routine Procedures Performed Operation Date: 07/21/24 07:00 Actual Procedures p Robotic Laparoscopic Cholecystectomy(Not Applicable) - Kiran De La Rosa, Diagnostic Imagining Performed 07/19/24 15:04 US gallbladder Stat Pending Results Patient Have Any Pending Studies at Discharge: Yes Discharge Instructions Given to Patient (Per Discharging Provider) You have been hospitalized for abdominal pain and found to have acute infection in your gallbladder. Surgery was consulted and you were given IV antibiotics for coverage and had removal of this and drain to be removed prior to discharge (see instructions from surgery below). You should continue pain control with Tylenol/oxycodone as needed. Your renal function was elevated slightly but improved with holding your lisinopril/Lasix and at discharge you are to resume your lisinopril but monitor your weights to see about resuming your Lasix for any increased weight gain or edema and can discuss with primary care in follow up. You should have follow up with surgery as arranged to monitor your status outpatient. Please follow up with primary care in the next 7-10 days after discharge. Please alert of any increased diarrhea/pain/fever given extended course antibiotics as discussed but you do not have any further antibiotics to take at discharge! Some people have chronic loose stools after removal of gallbladder and there are medications to use if this occurs and can be discussed in follow up (ie questran). Your insulin needs have been LESS while in the hospital At discharge, your insulin will be changed to 10 units Lantus once daily. Please continue to monitor your blood sugars and alert primary care if any persistent low <80 or >250 or symptoms for further instruction. Please return to the ER with any fever/chills, worsening pain, increased redness/drainage from incisions or for any other symptoms concerning for you. Home health services has been arranged at discharge and recommend continued use of walker until return to your baseline. It has been a pleasure being a part of the medical team providing for you while you have been in the hospital. Take care! Supervising Physician Co-Signing Physician Notes The patient was not seen by me. The chart was reviewed. Case discussed with JOVI Penaloza. 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
[2024-07-28 11:25] VITALS: BP 116/67; PULSE 62; TEMP 98.1; O2SAT 95
== END 2024-07-28 13:05 | disposition home health service (06) | DRG 418 ==
LOC: ED 13:18 → 2N 18:04 → SUATTDRO 18:04 → 2N 20:29

== ENCOUNTER 2024-12-08 09:58 | Inpatient (IN) ==
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
--- NOTE | 2024-12-08 10:48 | XRay Report ---
XR chest 1V portable HISTORY: 79 years-old Male weakness acute weakness COMPARISON: May 02, 2024 TECHNIQUE: AP view of the chest FINDINGS: Cardiac silhouette is enlarged. Atherosclerosis of the aorta. No pneumothorax. Vascular congestion is suggested. Probable small pleural effusions with bibasilar densities and chronic linear scarring in the left midlung. IMPRESSION: 1. Cardiomegaly with chronic left midlung/left basilar scarring. 2. Probable small pleural effusions. ACT 112: Negative or not required by law. The above report was generated using voice recognition software. It may contain grammatical, syntax o r spelling errors. Electronically signed by: Neptali Mckeon M.D. 12/08/2024 10:47 AM
[2024-12-08 11:55] LABS: Hematocrit (blood only) 35.5 % (42.0-52.0); Hemoglobin 11.4 g/dl (14.0-18.0); Immature Granulocytes # (auto) 0.04 K/uL (0.01-0.20); Immature Granulocytes % (auto) 0.4 %; Mean Corpuscular Hemoglobin 29.8 pg (25.0-34.0); Mean Corpuscular Volume 92.9 fL (80.0-100.0); Platelet Count 275 K/uL (130-400); RDW Standard Deviation 54.9 fL (36.4-46.3); Red Blood Count 3.82 M/uL (4.70-6.10); White Blood Count 9.53 K/ul (4.8-10.8)
[2024-12-08 12:14] LABS: Alanine Aminotransferase 10.0 U/L (7-52); Albumin Globulin Ratio 0.8 (0.9-2); Alkaline Phosphatase 54.0 U/L (34-104); Anion Gap 8.0 (3-11); Bilirubin,Total 0.6 mg/dl (0.2-1.0); Blood Urea Nitrogen 61.0 mg/dl (6-23); Calcium 9.6 mg/dl (8.6-10.3); Carbon Dioxide 27.0 mmol/L (21-32); Chloride 105.0 mmol/L (98-107); Creatinine Clr Calc Pharmacy 24.7 ml/min; Globulin 4.5 gm/dl (2.5-4.0); Glucose 166.0 mg/dl (70-99(Fasting)); Magnesium 2.1 mg/dl (1.7-2.4); Potassium 4.3 mmol/L (3.5-5.1); Sodium 140.0 mmol/L (136-145); Total Protein 7.9 gm/dl (6.0-8.3)
[2024-12-08 12:28] LABS: Thyroid Stimulating Hormone 2.598 uIu/ml (0.300-4.500)
[2024-12-08 12:40] LABS: Appearance Urine Cloudy (Clear); Bacteria Urine Automated 3+ (None Seen); Epithelial Cell Urine Auto 0-2 /hpf (0-2); Glucose Urine UA Negative (Negative); RBC Urine Automated 0-2 /hpf (0-2); WBC Urine Automated >50 /hpf (0-5)
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
[2024-12-08] MEDS ORDERED: cefTRIAXone SODIUM 1,000 MG/50 ML BAG IV SCH (16:33)
[2024-12-08] MEDS ORDERED: [UNRECOGNIZED DRUG - OTHER] TOP PRN (16:33)
[2024-12-08] MEDS ORDERED: GABAPENTIN 100 MG CAP PO PRN (16:33)
[2024-12-08] MEDS ORDERED: GLUCAGON FOR INJ 1 MG VIAL SQ PRN (17:00)
[2024-12-08] MEDS ORDERED: CARBOHYDRATES FOR HYPOGLYCEMIA PO PRN (17:00)
[2024-12-08] MEDS ORDERED: GLUCOSE 40% GEL 15 GM TUBE PO PRN (17:00)
[2024-12-08] MEDS ORDERED: GLUCOSE 10 TAB/TUBE PO PRN (17:00)
[2024-12-08] MEDS ORDERED: DEXTROSE 50% 50 ML SYRINGE IV PRN (17:00)
[2024-12-08] MEDS: cefTRIAXone SODIUM 2,000 MG/50 ML BAG IV SCH (17:07)
[2024-12-08] MEDS: APIXABAN 5 MG TABLET PO SCH (20:32)
[2024-12-08] MEDS: ATORVASTATIN 10 MG TAB PO SCH (20:32)
[2024-12-08] MEDS: TAMSULOSIN HCL 0.4 MG CAP PO SCH (20:32)
[2024-12-08] MEDS: LANTUS PER UNIT CHARGE SC SCH (20:35)
--- NOTE | 2024-12-09 05:45 | Electrocardiogram Report ---
Test Reason : Blood Pressure : */* mmHG Vent. Rate : 83 BPM Atrial Rate : 83 BPM P-R Int : 244 ms QRS Dur : 106 ms QT Int : 390 ms P-R-T Axes : 61 -36 69 degrees QTcB Int : 458 ms Sinus rhythm with 1st degree A-V block Left axis deviation Cannot rule out Anterior infarct , age undetermined Abnormal ECG When compared with ECG of 31-Jul-2024 16:47, No significant change was found Confirmed by Rafael Hong ([id number]) on 12/09/2024 5:45:15 AM Referred By: REFERRED SELF Confirmed By: Rafael Hong
[2024-12-09] MEDS: LEVOTHYROXINE SODIUM 88 MCG TABLET PO SCH (05:48)
[2024-12-09 06:20] LABS: Hematocrit (blood only) 35.1 % (42.0-52.0); Hemoglobin 11.1 g/dl (14.0-18.0); Mean Corpuscular Hemoglobin 29.6 pg (25.0-34.0); Mean Corpuscular Volume 93.6 fL (80.0-100.0); Platelet Count 283 K/uL (130-400); RDW Standard Deviation 56.3 fL (36.4-46.3); Red Blood Count 3.75 M/uL (4.70-6.10); White Blood Count 9.53 K/ul (4.8-10.8)
[2024-12-09 06:40] LABS: Anion Gap 9.0 (3-11); Blood Urea Nitrogen 57.0 mg/dl (6-23); Calcium 9.2 mg/dl (8.6-10.3); Carbon Dioxide 23.0 mmol/L (21-32); Chloride 108.0 mmol/L (98-107); Creatinine Clr Calc Pharmacy 25.5 ml/min; Glucose 161.0 mg/dl (70-99(Fasting)); Potassium 4.3 mmol/L (3.5-5.1); Sodium 140.0 mmol/L (136-145)
[2024-12-09] MEDS: CHOLECALCIFEROL 25 MCG (1000 UNITS) TAB PO SCH (08:29)
[2024-12-09] MEDS: FOLIC ACID 1 MG TAB PO SCH (08:29)
[2024-12-09] MEDS: ASCORBIC ACID 500 MG TAB PO SCH (08:29)
[2024-12-09] MEDS: SPIRONOLACTONE 12.5 MG TAB PO SCH (08:29)
[2024-12-09] MEDS: METOPROLOL SUCC 25MG EXT REL TAB PO SCH (08:29)
[2024-12-09] MEDS: FERROUS SULFATE 325 MG TAB PO SCH (08:29)
[2024-12-09] MEDS ORDERED: ACETAMINOPHEN 325 MG TAB PO PRN (09:00)
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
[2024-12-10] MEDS: CIPROFLOXACIN 250 MG TAB PO SCH (10:59)
[2024-12-10 11:17] VITALS: BP 148/78; PULSE 72; RESP 20; TEMP 98.1; O2SAT 97
== END 2024-12-10 13:15 | disposition home or self-care (01) | DRG 690 ==
LOC: ED 09:58 → 2S 14:01